=== PATIENT | female | born 1960 | race Two or more races ===

== ENCOUNTER 2016-12-10 00:08 | Emergency (ER) | payer SELFPAY ==
[2016-12-10] MEDS ORDERED: TRAMADOL HCL 50 MG TABLET PO ONE (02:03)
[2016-12-10] MEDS ORDERED: PSEUDOEPHEDRINE HCL 30 MG TABLET PO ONE (02:03)
[2016-12-10] MEDS ORDERED: AMOXICILLIN TR/POT CLAVULANATE 500-125 MG TAB PO ONE (02:03)
[2016-12-10] MEDS ORDERED: ALBUTEROL SULFATE HFA (90 MCG/PUFF) 8 GM MDI (1 MDI/ER DISP) IH PRN (02:04)
--- NOTE | 2016-12-10 02:09 | ER Document Report ---
ED General - General Chief Complaint: Ear Pain Stated Complaint: EAR PAIN Notes: Patient is a 56-year-old female presents with complaints of nasal congestion, sinus pressure, and bilateral ear pain. Daughter also mentioned she has a history of CHF. She's not had any lower extremity edema. Some subjective fevers. Patient also is very anxious and says she has panic attacks. She says the pain in her uterus is causing her panic attacks to be worse. Is taking Ativan for this. She says she took NyQuil and DayQuil at home for her sinus pressure. TRAVEL OUTSIDE OF THE [place] IN LAST 30 DAYS: No - Related Data Allergies/Adverse Reactions: No Known Allergies Allergy (Verified 01/31/16 14:17) Past Medical History - Social History Smoking Status: Unknown if Ever Smoked Frequency of alcohol use: None Drug Abuse: None Family History: Reviewed & Not Pertinent Patient has suicidal ideation: No Patient has homicidal ideation: No - Past Medical History Cardiac Medical History: Reports: Hx Congestive Heart Failure, Hx Hypertension Pulmonary Medical History: Reports: Hx Asthma Endocrine Medical History: Reports: Hx Diabetes Mellitus Type 2 Renal/ Medical History: Denies: Hx Peritoneal Dialysis Psychiatric Medical History: Reports: Hx Depression - Immunizations Hx Diphtheria, Pertussis, Tetanus Vaccination: Yes Review of Systems - Review of Systems Notes: My Normal Review Basic REVIEW OF SYSTEMS: CONSTITUTIONAL : Denies fever, chills, or sweats. Denies recent illness. EENT: Nasal congestion. Ear pain. CARDIOVASCULAR: Denies chest pain. RESPIRATORY: Denies cough, cold, or chest congestion. Denies shortness of breath, difficulty breathing, or wheezing. GASTROINTESTINAL: Denies abdominal pain. Denies nausea, vomiting, or diarrhea. Denies constipation. Last BM: MUSCULOSKELETAL: Denies neck or back pain or joint pain or swelling. SKIN: Denies rash or skin lesions. NEUROLOGICAL: Denies altered mental status or loss of consciousness. Denies headache. Denies weakness or paralysis or loss of use of either side. Denies problems with gait or speech. Denies sensory or motor loss. ALL OTHER SYSTEMS REVIEWED AND NEGATIVE. Physical Exam - Vital signs Vitals: Temp Pulse Resp BP Pulse Ox 98 F 100 17 151/71 H 99 12/10/16 00:08 12/10/16 00:08 12/10/16 00:08 12/10/16 00:08 12/10/16 00:08 - Notes Notes: General Appearance: Well nourished, alert, cooperative, no acute distress, mild to moderate obvious discomfort. Very anxious Vitals: reviewed, See vital signs table. Head: no swelling or tenderness to the head Eyes: PERRL, EOMI, Conjuctiva clear Mouth: No decreasd moisture Throat: No tonsillar inflammation, No airway obstruction, No lymphadenopathy Ears: Normal appearing tympanic membrane bilaterally. Nose: Obvious nasal congestion on exam. Neck: Supple, no neck tenderness, Lungs: No wheezing, No rales, No rhonci, No accessory muscle use, good air exchange bilaterally. Heart: Normal rate, Regular rythm, No murmur, no rub Extremities: strength 5/5 in all extremities, good pulses in all extremities, no swelling or tenderness in the extremities, no edema. Skin: warm, dry, appropriate color, no rash Neuro: speech clear, oriented x 3, normal affect, responds appropriately to questions. Course - Vital Signs Vital signs: Temp Pulse Resp BP Pulse Ox 98.9 F 108 H 16 144/75 H 97 12/10/16 02:26 12/10/16 02:26 12/10/16 02:26 12/10/16 02:26 12/10/16 02:26 - Transfer of Care Notes: 12/10/16 05:43 I suspect the pain impression the patient's ears is related to all her sinus pressure. She claims that she's had fevers. She is very panicky. This is apparently normal for her. She takes medications for panic attacks. I will give her Sudafed for congestion. We'll give her some pain medication. I will place her on antibiotics for what appears to be sinusitis. I encouraged him to return to ER if she has recurrent fevers, worsening of her symptoms, or she feels unwell. Patient and daughter agree with plan and she will be discharged home. Dictation of this chart was performed using voice recognition software; therefore, there may be some unintended grammatical errors. Discharge - Discharge Clinical Impression: Sinusitis Qualifiers: Sinusitis location: unspecified location Chronicity: acute Recurrence: non- recurrent Qualified Code(s): J01.90 - Acute sinusitis, unspecified Ear pain Qualifiers: Laterality: bilateral Qualified Code(s): H92.03 - Otalgia, bilateral Condition: Good Disposition: HOME, SELF-CARE Instructions: Oral Narcotic Medication ([facility]) Additional Instructions: Please take the medications as prescribed. The Pseudophed can sometimes raise your blood pressure. Please stop taking this medication if your blood pressure starts to become much higher than your normal. Please follow up with your doctor in 2-3 days for reevaluation. Please return to the ER immediately if you develop difficulty breathing, fevers, or feel unwell. Prescriptions: Tramadol HCl [Ultram 50 mg Tablet] 50 mg PO Q6HP PRN #14 tablet PRN Reason: Amox Tr/Potassium Clavulanate [Augmentin 875-125 Tablet] 1 tab PO BID 10 Days Pseudoephedrine HCl 30 mg PO Q8 PRN #20 tablet PRN Reason: sinus congestion
[2016-12-10 02:33] VITALS: BP 144/75
== END 2016-12-10 02:39 | disposition home or self-care (01) ==
LOC: ER 00:08
DX: H92.03 Otalgia, bilateral (principal); J01.90 Acute sinusitis, unspecified; R09.81 Nasal congestion; F41.0 Panic disorder [episodic paroxysmal anxiety]; I10 Essential (primary) hypertension; J45.909 Unspecified asthma, uncomplicated; E11.9 Type 2 diabetes mellitus without complications; Z79.899 Other long term (current) drug therapy
CPT/HCPCS: 99282; J3490

== ENCOUNTER → 2017-05-31 | Outpatient (CLI) | payer OTHER ==
[2017-05-31 08:25] LABS: ABSOLUTE EOSINOPHILS # (AUTO) 0.3 10^3/uL (0.0-0.6); ABSOLUTE MONOCYTES (AUTO) 0.4 10^3/uL (0.1-1.4); ABSOLUTE NEUT (AUTO) 3.7 10^3/uL (1.7-8.2); BASOPHILS % (AUTO) 0.6 % (0-2); EOSINOPHILS % (AUTO) 3.6 % (0-6); HEMATOCRIT 31.7 % (36.0-47.0); HEMOGLOBIN 10.8 g/dL (12.0-15.5); HGB HCT DIFFERENCE 0.7; LYMPHOCYTES % (AUTO) 40.5 % (13-45); MEAN CORPUSCULAR HEMOGLOBIN 27.4 pg (27.0-33.4); MEAN CORPUSCULAR VOLUME 81 fl (80-97); RED BLOOD COUNT 3.93 10^6/uL (3.72-5.28); RED CELL DISTRIBUTION WIDTH 14.7 % (11.5-14.0); SEGMENTED NEUTROPHILS % (AUTO) 49.3 % (42-78); WHITE BLOOD COUNT 7.5 10^3/uL (4.0-10.5)
[2017-05-31 08:48] LABS: ANION GAP 12 (5-19); ASPARTATE AMINO TRANSFERASE 16 U/L (14-36); BLOOD UREA NITROGEN 19 mg/dL (7-20); CALCIUM 9.6 mg/dL (8.4-10.2); CARBON DIOXIDE 27 mmol/L (22-30); CHLORIDE 97 mmol/L (98-107); GLUCOSE 221 mg/dL (75-110); POTASSIUM 5.1 mmol/L (3.6-5.0); SODIUM 135.7 mmol/L (137-145)
[2017-05-31 08:49] LABS: ALANINE AMINOTRANSFERASE 22 U/L (9-52); ALKALINE PHOSPHATASE 143 U/L (38-126); BILIRUBIN,DIRECT 0.4 mg/dL (0.0-0.4); BILIRUBIN,TOTAL 0.6 mg/dL (0.2-1.3); CHOLESTEROL 127.51 mg/dL (0-200); Direct HDL 35 mg/dL (>40); TOTAL PROTEIN 7.7 g/dL (6.3-8.2); TRIGLYCERIDES 361 mg/dL (<150)
[2017-05-31 08:59] LABS: DIRECT LDL 48 mg/dL (<100)
[2017-05-31 09:00] LABS: VLDL CHOLESTEROL 72.2 mg/dL (10-31)
== END ==
LOC: CCC 07:15
DX: J44.9 Chronic obstructive pulmonary disease, unspecified (principal); B18.2 Chronic viral hepatitis C; F41.9 Anxiety disorder, unspecified; I10 Essential (primary) hypertension; E11.8 Type 2 diabetes mellitus with unspecified complications
CPT/HCPCS: 36415; 80053; 80061; 83036; 84443; 85025

== ENCOUNTER → 2017-06-19 | Outpatient (CLI) | payer OTHER ==
[2017-06-19 14:00] LABS: IRON 49.8 ug/dL (37-170)
== END ==
LOC: CCC 12:55
DX: D64.9 Anemia, unspecified (principal)
CPT/HCPCS: 36415; 82728; 83540

== ENCOUNTER 2017-09-27 13:14 | Emergency (ER) | payer MEDICARE, OTHER ==
[2017-09-27] MEDS ORDERED: ACETAMINOPHEN 325 MG TABLET PO ONE (13:50)
[2017-09-27] MEDS ORDERED: DIAZEPAM 5 MG TABLET PO ONE (13:50)
--- NOTE | 2017-09-27 14:17 | RADIOLOGY REPORT (SQ) ---
EXAM DESCRIPTION: HIP LEFT AP/LATERAL COMPLETED DATE/TIME: 09/27/2017 2:07 pm REASON FOR STUDY: left hip pain COMPARISON: None. NUMBER OF VIEWS: Two views. TECHNIQUE: AP pelvis and additional frog-leg view of the left hip. LIMITATIONS: None. FINDINGS: MINERALIZATION: Normal. LEFT HIP: No fracture or dislocation. No worrisome bone lesions. No significant joint space narrowi ng. Minimal acetabular rim bony spurring. RIGHT HIP: No fracture or dislocation. No worrisome bone lesions. No significant joint space narrow ing. PUBIS AND ISCHIUM: No fracture. PELVIS: No fracture. SACRUM: Grossly intact. Mild left SI joint sclerosis LOWER LUMBAR SPINE: Lower lumbar facet arthropathy at L5-S1 SOFT TISSUES: Tiny calcification over the right greater trochanter likely mild calcific tendinopathy along the distal gluteus tendon. Atherosclerotic aortoiliac vascular calcification OTHER: No other significant finding. IMPRESSION: No acute fracture. Bilateral mild SI joint sclerosis. Lower lumbar facet arthropathy TECHNICAL DOCUMENTATION: JOB ID: [id number] [employer]- All Rights Reserved
[2017-09-27] MEDS ORDERED: IBUPROFEN 400 MG TABLET PO ONE (15:03)
[2017-09-27] MEDS ORDERED: OXYCODONE-ACETAMINOPHEN 5-325 MG TABLET PO ONE (15:03)
--- NOTE | 2017-09-27 15:38 | RADIOLOGY REPORT (SQ) ---
EXAM DESCRIPTION: CHEST PA/LAT COMPLETED DATE/TIME: 09/27/2017 3:24 pm REASON FOR STUDY: Short of breath, Hx CHF COMPARISON: 08/13/2016. EXAM PARAMETERS: NUMBER OF VIEWS: two views TECHNIQUE: Digital Frontal and Lateral radiographic views of the chest acquired. RADIATION DOSE: NA LIMITATIONS: none FINDINGS: LUNGS AND PLEURA: No opacities, masses or pneumothorax. No pleural effusion. MEDIASTINUM AND HILAR STRUCTURES: No masses or contour abnormalities. HEART AND VASCULAR STRUCTURES: Heart normal size. No evidence for failure. BONES: No acute findings. HARDWARE: None in the chest. OTHER: No other significant finding. IMPRESSION: NO SIGNIFICANT RADIOGRAPHIC FINDING IN THE CHEST. TECHNICAL DOCUMENTATION: JOB ID: [id number] [employer]- All Rights Reserved
--- NOTE | 2017-09-27 16:03 | ER Document Report ---
ED Extremity Problem, Lower - General Chief Complaint: Leg Pain Stated Complaint: LEG PAIN Time Seen by Provider: 09/27/17 13:22 Notes: Patient is complaining of pain in her left lateral proximal posterior thigh buttock that has been worsening since it began on Sunday. She recalls no unusual activity or injury or slipping or twisting or anything that would cause this to happen. She has never had a before. It is painful for her to walk and she is having to use a walker to get around. Has not had any swelling of any joints although she feels like her left buttock where the pain is located may be swollen. Has had some congestion, but not much cough. Denies any chest pains. She has felt hot, but no fever. She says she has had chills yesterday. No sweats. TRAVEL OUTSIDE OF THE [place] IN LAST 30 DAYS: No - Related Data Allergies/Adverse Reactions: No Known Allergies Allergy (Verified 01/31/16 14:17) Past Medical History - Social History Smoking Status: Former Smoker Chew tobacco use (# tins/day): No Frequency of alcohol use: None Drug Abuse: None Family History: Reviewed & Not Pertinent Patient has suicidal ideation: No Patient has homicidal ideation: No - Past Medical History Cardiac Medical History: Reports: Hx Congestive Heart Failure, Hx Hypertension Pulmonary Medical History: Reports: Hx Asthma Endocrine Medical History: Reports: Hx Diabetes Mellitus Type 1 Psychiatric Medical History: Reports: Hx Depression Past Surgical History: Reports: None - Immunizations Hx Diphtheria, Pertussis, Tetanus Vaccination: Yes Review of Systems - Review of Systems Notes: REVIEW OF SYSTEMS: CONSTITUTIONAL : Denies fever. EENT: Denies eye, ear, nose or mouth or throat pain or other symptoms. CARDIOVASCULAR: Denies chest pain. RESPIRATORY: Denies cough, chest congestion, or shortness of breath. GASTROINTESTINAL: Denies abdominal pain or nausea, vomiting, or diarrhea. GENITOURINARY: Denies difficulty or painful urinating, urinary frequency, blood in urine. MUSCULOSKELETAL: Denies back or neck pain. See HPI. SKIN: Denies rash or skin lesions. NEUROLOGICAL: Denies LOC or altered mental status. Denies headache. Denies sensory loss or motor deficits. ALL OTHER SYSTEMS REVIEWED AND NEGATIVE. Physical Exam - Vital signs Vitals: Temp Pulse Resp BP Pulse Ox 99.3 F 99 18 132/77 H 96 09/27/17 13:30 02/01/18 13:30 09/27/17 13:30 09/27/17 13:30 09/27/17 13:30 Interpretation: Normal - Notes Notes: PHYSICAL EXAMINATION: GENERAL: Well-appearing, in no acute distress. Appears to be comfortable so long as she lays still in bed, but attempting to stand up or to roll onto her left side causes severe pain. HEAD: Atraumatic, normocephalic. NECK: Normal range of motion, supple. LUNGS: Breath sounds clear and equal bilaterally. HEART: Regular rate and rhythm without murmurs. ABDOMEN: Soft, nontender. No guarding or rebound. No masses. BACK: No tenderness throughout entire back. EXTREMITIES: Patient has a tender area in the general area of the left SI joint. Hurts to press or move that area. There is no fluctuance noted. There is no erythema or heat or any symptoms that would suggest an infectious process. She does not seem to be tender over the femoral head and that aspect of her lateral buttock, but more in the region of the SI joint. NEUROLOGICAL: Normal speech, gait abnormal because of pain. Normal sensory, motor, and reflex exams. Awake, alert, and oriented x3. Cranial nerves normal. PSYCH: Normal mood, normal affect. SKIN: Warm, dry, no rashes. Course - Vital Signs Vital signs: Temp Pulse Resp BP Pulse Ox 98.9 F 89 18 128/84 H 96 09/27/17 16:29 09/27/17 16:29 09/27/17 13:30 09/27/17 16:29 09/27/17 16:29 Discharge - Discharge Clinical Impression: Left hip pain, Sacroiliitis, Arthritis Condition: Stable Disposition: HOME, SELF-CARE Additional Instructions: Arthritis /Sacroiliitis Your symptoms are due to arthritis. Arthritis is an inflammation of the joints. There are many types -- osteoarthritis (due to "wear and tear"), auto- immmune arthritis (such as rheumatoid, lupus, Radha's, and others), and crystal -induced arthritis (such as gout and pseudogout). The physician's examination, combined with laboratory tests, will determine the cause of your arthritis. All types of arthritis are treated with antiinflammatory medications. Other medication may be required for special types of arthritis, or if your problem does not respond to the antiinflammatory medicine. Local warmth may be helpful. Move the involved joints through the full range of motion daily. Mild exercise is usually still possible for most persons with arthritis (ask your physician). Swimming provides good exercise without damaging the joints. Contact the physician if you are worsening in any way. Sciatica Your symptoms suggest "sciatica." The pain of sciatica typically radiates down the leg. Numbness in the foot or calf may also occur. Sciatica is caused by irritation of the sciatic nerve or its branches. The irritation can be due to a herniated disk in the spine, swelling and inflammation in the muscles surrounding the sciatic nerve, or direct injury of the nerve itself. Most cases of sciatica will resolve with medical treatment. Bed rest is usually recommended initially. Surgery is only necessary when the condition will not improve with rest and antiinflammatory medication. Muscle relaxers are often given if muscle soreness is present. A CAT scan of the back may be performed if a herniated disk is suspected. Re-examination is necessary if you develop increasing numbness, localized weakness in the foot or ankle, or if the pain does not respond to rest. Anxiety The physician feels that some of your health problems are being caused by anxiety. Anxiety affects your health in many ways. Anxiety alone can cause palpitations, sweats, chest pains, abdominal pains, shortness of breath, and headaches. It contributes to ulcer disease, high blood pressure, irritable bowel syndrome, and has been shown to cause flare-ups of many other diseases. Anxiety is not a simple disorder to treat. If the anxiety is due to recent life stresses, you may simply need time to "work through" the changes. If the anxiety is due to an underlying unhappiness with yourself or due to psychiatric disturbance, professional help will be needed. Your physician can refer you for further help if needed. Anti-anxiety medication is occasionally given if the stress is acute or if you are having trouble sleeping. Chronic or frequent use of these medications is not a good idea because the body becomes reliant on it, preventing you from dealing with life's normal stresses. Benzodiazepines You have been given a benzodiazepine medication. Examples of this type of medicine include Valium, Xanax, Librium, Ativan, and Halcion. Benzodiazepines have many uses. Medications of this type are used for insomnia, anxiety, muscle spasms, seizures, and drug and alcohol withdrawal. You may become very drowsy when you first take the medication. You should not drive or operate machinery while under its effects. Do not combine the medication with alcohol, or with any other medication without talking to your doctor. Do not take if without specific instruction from your dormitory supervisor. Some benzodiazepines may have harmful interactions with oral antifungal medicines such as ketoconazole, itraconazole, and nefazodone. If you are taking an antifungal medicine, discuss this with your doctor before taking benzodiazepines. Ibuprofen Ibuprofen is an excellent, safe drug for pain control. In addition, it has potent antiinflammatory effects which are beneficial, especially in the treatment of injuries, arthritis, or tendonitis. It's best to take ibuprofen with food. Persons with ulcer disease or allergy to aspirin should notify their physician of this before taking ibuprofen. Take the medication exactly as prescribed. Don't take additional doses unless instructed to do so by your doctor. If you develop wheezing, shortness of breath, hives, faintness, stomach pain, vomiting, or dark black stools, return for re-evaluation at once. Take 400 mg (2 tablets) up to 3 times a day for the next 3-5 days. You can also take Tylenol along with the ibuprofen. Oral Narcotic Medication You have been given a prescription for pain control. This medication is a narcotic. It's best taken with food, as nausea can result if taken on an empty stomach. Don't operate machinery or drive within six hours of taking this medication. Do not combine this medicine with alcohol, or with any medication which can cause sedation (such as cold tablets or sleeping pills) unless you get permission from the physician. Narcotics tend to cause constipation. If possible, drink plenty of fluids and eat a diet high in fiber and fruits. FOLLOW-UP CARE: If you have been referred to a physician for follow-up care, call the physician s office for an appointment as you were instructed or within the next two days. If you experience worsening or a significant change in your symptoms, notify the physician immediately or return to the Emergency Department at any time for re-evaluation. Prescriptions: Oxycodone HCl/Acetaminophen [Percocet 5-325 mg Tablet] 1 tab PO Q6HP PRN #12 tablet PRN Reason: Diazepam [Valium 5 mg Tablet] 5 mg PO TIDP PRN #12 tablet PRN Reason:
[2017-09-27 16:33] VITALS: BP 128/84
== END 2017-09-27 16:29 | disposition home or self-care (01) ==
LOC: ER 13:14
DX: M46.1 Sacroiliitis, not elsewhere classified (principal); M19.90 Unspecified osteoarthritis, unspecified site; M25.552 Pain in left hip; M79.605 Pain in left leg; M79.652 Pain in left thigh; R09.81 Nasal congestion; R05 Cough; Z87.891 Personal history of nicotine dependence
CPT/HCPCS: 99283; 71046; 73502; A9270 ×4; J3490

== ENCOUNTER 2018-06-07 16:03 | Inpatient (IN) | payer MEDICARE, OTHER ==
--- NOTE | 2018-06-07 16:18 | ER Document Report ---
ED Medical Screen (RME) - General Chief Complaint: S/S of Possible Stroke Stated Complaint: STROKE LIKE SYMPTOMS Time Seen by Provider: 06/07/18 16:16 Mode of Arrival: Wheelchair Information source: Patient, Relative TRAVEL OUTSIDE OF THE [place] IN LAST 30 DAYS: No - HPI Patient complains to provider of: R side numbness and weakness Onset: Yesterday - pt with onset of R arm numbness starting last night. Improved temporarily but symptomes resumed today - Related Data Allergies/Adverse Reactions: No Known Allergies Allergy (Verified 01/31/16 14:17) Past Medical History - Social History Chew tobacco use (# tins/day): No Frequency of alcohol use: None Drug Abuse: None - Past Medical History Cardiac Medical History: Reports: Hx Congestive Heart Failure, Hx Hypertension Pulmonary Medical History: Reports: Hx Asthma Endocrine Medical History: Reports: Hx Diabetes Mellitus Type 1, Hx Diabetes Mellitus Type 2 Renal/ Medical History: Denies: Hx Peritoneal Dialysis Psychiatric Medical History: Reports: Hx Depression - Immunizations Hx Diphtheria, Pertussis, Tetanus Vaccination: Yes Physical Exam - Vital signs Vitals: Temp Pulse Resp BP Pulse Ox 98.9 F 98 20 143/75 H 98 06/07/18 16:10 06/07/18 16:10 06/07/18 16:10 06/07/18 16:10 06/07/18 16:10 Course - Vital Signs Vital signs: Temp Pulse Resp BP Pulse Ox 98.9 F 98 20 143/75 H 98 06/07/18 16:10 06/07/18 16:10 06/07/18 16:10 06/07/18 16:10 06/07/18 16:10
[2018-06-07 16:56] LABS: ABSOLUTE BASOPHILS # (AUTO) 0.1 10^3/uL (0.0-0.2); ABSOLUTE EOSINOPHILS # (AUTO) 0.2 10^3/uL (0.0-0.6); ABSOLUTE LYMPHOCYTES (AUTO) 1.8 10^3/uL (0.5-4.7); ABSOLUTE MONOCYTES (AUTO) 0.5 10^3/uL (0.1-1.4); ABSOLUTE NEUT (AUTO) 6.5 10^3/uL (1.7-8.2); BASOPHILS % (AUTO) 0.9 % (0-2); EOSINOPHILS % (AUTO) 2.6 % (0-6); HEMATOCRIT 28.1 % (36.0-47.0); HEMOGLOBIN 9.4 g/dL (12.0-15.5); LYMPHOCYTES % (AUTO) 19.9 % (13-45); MEAN CORPUSCULAR HEMOGLOBIN 27.9 pg (27.0-33.4); MEAN CORPUSCULAR HGB CONC 33.4 g/dL (32.0-36.0); MEAN CORPUSCULAR VOLUME 83 fl (80-97); MONOCYTES % (AUTO) 5.5 % (3-13); PLATELET COUNT 357 10^3/uL (150-450); RED BLOOD COUNT 3.36 10^6/uL (3.72-5.28); RED CELL DISTRIBUTION WIDTH 14.4 % (11.5-14.0); SEGMENTED NEUTROPHILS % (AUTO) 71.1 % (42-78); TOTAL CELLS COUNTED % (AUTO) 100 %; WHITE BLOOD COUNT 9.1 10^3/uL (4.0-10.5)
[2018-06-07 17:03] LABS: PROTHROMBIN TIME 13.7 SEC (11.4-15.4)
[2018-06-07 17:12] LABS: ALANINE AMINOTRANSFERASE 21 U/L (9-52); ALBUMIN 4.2 g/dL (3.5-5.0); ALKALINE PHOSPHATASE 71 U/L (38-126); ANION GAP 15 (5-19); ASPARTATE AMINO TRANSFERASE 31 U/L (14-36); BILIRUBIN,DIRECT 0.2 mg/dL (0.0-0.4); BILIRUBIN,TOTAL 0.5 mg/dL (0.2-1.3); BLOOD UREA NITROGEN 22 mg/dL (7-20); CALCIUM 9.9 mg/dL (8.4-10.2); CARBON DIOXIDE 23 mmol/L (22-30); CHLORIDE 102 mmol/L (98-107); CREATINE KINASE 30 U/L (30-135); GLUCOSE 88 mg/dL (75-110); POTASSIUM 4.9 mmol/L (3.6-5.0); TOTAL PROTEIN 8.4 g/dL (6.3-8.2)
--- NOTE | 2018-06-07 17:23 | RADIOLOGY REPORT (SQ) ---
EXAM DESCRIPTION: CT HEAD WITHOUT COMPLETED DATE/TIME: 06/07/2018 5:02 pm REASON FOR STUDY: numbness R arm COMPARISON: 01/31/2016. TECHNIQUE: Axial images acquired through the brain without intravenous contrast. Images reviewed wi th bone, brain and subdural windows. Additional sagittal and coronal reconstructions were generated. Images stored on PACS. All CT scanners at this facility use dose modulation, iterative reconstruction, and/or weight based d osing when appropriate to reduce radiation dose to as low as reasonably achievable (ALARA). [facility]: Dose Right [facility]: CareDose [facility]: Dose Right [facility]: Teradose 4D [facility]: Smart Ctrip RADIATION DOSE: CT Rad equipment meets quality standard of care and radiation dose reduction techniq ues were employed. CTDIvol: 53.2 mGy. DLP: 937 mGy-cm. mGy. LIMITATIONS: None. FINDINGS: VENTRICLES: Prominent. CEREBRUM: No masses. No hemorrhage. No midline shift. Old left parietal infarct. Areas of low den sity in the white matter most likely due to chronic micro-vascular ischemic change. No evidence for acute infarction. CEREBELLUM: No masses. No hemorrhage. No alteration of density. No evidence for acute infarction. EXTRAAXIAL SPACES: Mild age-related involutional change. No fluid collections. No masses. ORBITS AND GLOBE: No intra- or extraconal masses. Normal contour of globe without masses. CALVARIUM: No fracture. PARANASAL SINUSES: No fluid or mucosal thickening. SOFT TISSUES: No mass or hematoma. OTHER: No other significant finding. IMPRESSION: MILD CHRONIC CHANGES OF ATROPHY AND MICROVASCULAR ISCHEMIA. NO ACUTE PROCESS. EVIDENCE OF ACUTE STROKE: NO. TECHNICAL DOCUMENTATION: JOB ID: [id number] Quality ID # [id number]: Final reports with documentation of one or more dose reduction techniques (e.g., Au tomated exposure control, adjustment of the mA and/or kV according to patient size, use of iterative reconstruction technique) 2010 [employer]- All Rights Reserved Reading location - IP/workstation name: [email or web address]
[2018-06-07 17:25] LABS: CREATINE KINASE MB 1.86 ng/mL (<4.55); TROPONIN I 0.013 ng/mL
--- NOTE | 2018-06-07 19:09 | RADIOLOGY REPORT (SQ) ---
EXAM DESCRIPTION: MRI HEAD WITHOUT COMPLETED DATE/TIME: 06/07/2018 6:44 pm REASON FOR STUDY: right sided weakness for > 12 hours COMPARISON: 01/31/2016 TECHNIQUE: Multiplanar imaging includes non-contrasted T1, T2, FLAIR, and Diffusion with ADC map seq uences. Images stored on PACS. LIMITATIONS: None. FINDINGS: ANATOMY: No anomalies. Normal vascular flow voids. Pituitary fossa normal. CSF SPACES: Normal in size and contour. No hemorrhage. CEREBRUM: Scattered high-signal intensity lesions throughout the white matter on FLAIR imaging with d istribution suggesting chronic micro-vascular ischemic change. Old left parietal periventricular inf arct. No evidence of hemorrhage, mass or extraaxial fluid collection. POSTERIOR FOSSA: No signal alteration. No hemorrhage. No edema, masses or mass effect. Internal mavis tory canals, cerebello-pontine angles, mastoids normal. DIFFUSION: Positive for acute or sub-acute punctate lacunar infarctions are noted in the left frontal and parietal lobes in the subcortical white matter. A small focus of restricted diffusion is also n oted in the subcortical white matter of the right parietal lobe the this is not readily confirmed on the ADC map, but raises concern for possible multi vessel distribution. Overall these findings are c onsistent with probable embolic disease. ORBITS: No masses. Globes normal. PARANASAL SINUSES: No fluid levels. Mucosa normal. OTHER: No other significant finding. IMPRESSION: Positive for acute or sub-acute punctate lacunar infarctions are noted in the left front al and parietal lobes in the subcortical white matter. A small focus of restricted diffusion is also noted in the subcortical white matter of the right parietal lobe the this is not readily confirmed o n the ADC map, but raises concern for possible multi vessel distribution. Overall these findings are consistent with probable embolic disease. EVIDENCE OF ACUTE STROKE: YES. LEFT MCA. TECHNICAL DOCUMENTATION: JOB ID: [id number] 2010 [employer] All Rights Reserved Reading location - IP/workstation name: [email or web address]
[2018-06-07] MEDS ORDERED: ASPIRIN 325 MG TABLET PO ONE (19:15)
[2018-06-07] MEDS ORDERED: DOCUSATE SODIUM 100 MG CAPSULE PO PRN (20:05)
[2018-06-07] MEDS ORDERED: GLUCAGON,HUMAN RECOMB 1 MG INJ IM PRN (20:05)
[2018-06-07] MEDS ORDERED: DEXTROSE 50%-WATER 25 GM/50 ML DISP.SYRIN IV PRN ×2 (20:05)
[2018-06-07] MEDS ORDERED: DEXTROSE 40% GEL 15 GM TUBE PO PRN ×2 (20:05)
--- NOTE | 2018-06-07 20:05 | ER Document Report ---
ED General - General Chief Complaint: S/S of Possible Stroke Stated Complaint: STROKE LIKE SYMPTOMS Time Seen by Provider: 06/07/18 16:16 Mode of Arrival: Wheelchair Notes: 58-year-old female history of stroke to the emergency department after 24 hours of having weakness on the right side. Patient states that it started yesterday but did not want to come in and get seen. Noticed weakness on the right side of her face, right upper extremity and right lower extremity today. No difficulty swallowing. No headache. Patient has multiple medical problems TRAVEL OUTSIDE OF THE [place] IN LAST 30 DAYS: No - HPI Onset: Yesterday Onset/Duration: Gradual Quality of pain: No pain Severity: Mild Pain Level: 0 - Related Data Allergies/Adverse Reactions: No Known Allergies Allergy (Verified 01/31/16 14:17) Past Medical History - General Information source: Patient, Relative - Social History Smoking Status: Former Smoker Chew tobacco use (# tins/day): No Frequency of alcohol use: None Drug Abuse: None Lives with: Family Family History: Reviewed & Not Pertinent Patient has suicidal ideation: No Patient has homicidal ideation: No - Past Medical History Cardiac Medical History: Reports: Hx Congestive Heart Failure, Hx Hypertension Pulmonary Medical History: Reports: Hx Asthma Endocrine Medical History: Reports: Hx Diabetes Mellitus Type 1, Hx Diabetes Mellitus Type 2 Renal/ Medical History: Denies: Hx Peritoneal Dialysis Psychiatric Medical History: Reports: Hx Depression - Immunizations Hx Diphtheria, Pertussis, Tetanus Vaccination: Yes Review of Systems - Review of Systems Notes: Constitutional: denies: Chills, Diaphoresis, Fever, Malaise, Weakness EENT: denies: Eye discharge, Blurred vision, Tearing, Double vision, Nose congestion, Nose discharge, Throat swelling, Mouth pain Cardiovascular: denies: Palpitations, Heart racing, Orthopnea, Dyspnea, Chest pain Respiratory: denies: Cough, Hurts to breathe, Wheezing, Shortness of breath Gastrointestinal: denies: Abdominal pain, Diarrhea, Nausea, Vomiting, Black stools, bright red blood in stool Genitourinary: denies: Burning, Dysuria, Discharge, Frequency, Flank pain, Hematuria Musculoskeletal: denies: Joint pain, Joint swelling, Muscle pain, Muscle stiffness, back pain Hematologic/Lymphatic: denies: Anemia, Easy bleeding, Easy bruising, Blood clots Neurological/Psychological: Skin: No lesions, no masses, no skin breakdown, no abscesses Physical Exam - Vital signs Vitals: Temp Pulse Resp BP Pulse Ox 98.9 F 98 20 143/75 H 98 06/07/18 16:10 06/07/18 16:10 06/07/18 16:10 06/07/18 16:10 06/07/18 16:10 Interpretation: Normal - General General appearance: Appears well, Alert - HEENT Head: Normocephalic, Atraumatic Eyes: Normal Pupils: PERRL - Respiratory Respiratory status: No respiratory distress Chest status: Nontender Breath sounds: Normal Chest palpation: Normal - Cardiovascular Rhythm: Regular Heart sounds: Normal auscultation Murmur: No - Abdominal Inspection: Normal Distension: No distension Bowel sounds: Normal Tenderness: Nontender Organomegaly: No organomegaly - Back Back: Normal, Nontender - Extremities General upper extremity: Normal inspection, Nontender, Normal color, Normal ROM , Normal temperature General lower extremity: Normal inspection, Nontender, Normal color, Normal ROM , Normal temperature, Normal weight bearing. No: Ralph's sign - Neurological Orientation: AAOx4 Jovita Coma Scale Eye Opening: Spontaneous Clayton Coma Scale Verbal: Oriented Jovita Coma Scale Motor: Obeys Commands Clayton Coma Scale Total: 15 Speech: Normal Motor strength normal: LUE, LLE. No: RUE, RLE Additional motor exam normals: Pronator drift. No: Equal manager action Sensory: Normal - Psychological Associated symptoms: Normal affect, Normal mood - Skin Skin Temperature: Warm Skin Moisture: Dry Skin Color: Normal Course - Re-evaluation Re-evalutation: 06/07/18 20:06 She has symptoms consistent with a stroke but it was definitely outside the window so no thrombolytics were given. CT scan was initially negative. MRI confirms concern for stroke. Aspirin was given. Not in A. fib. Normal sinus rhythm on EKG. Slightly anemic which will need workup with some serial stools. Will consult with hospitalist at this time for admission. Will place in the [facility]. Dr. Renaldo pickard. 06/07/18 20:07 Laboratory 06/07/18 06/07/18 06/07/18 16:45 16:45 16:45 WBC 9.1 RBC 3.36 L Hgb 9.4 L Hct 28.1 L MCV 83 MCH 27.9 MCHC 33.4 RDW 14.4 H Plt Count 357 Seg Neutrophils % 71.1 Lymphocytes % 19.9 Monocytes % 5.5 Eosinophils % 2.6 Basophils % 0.9 Absolute Neutrophils 6.5 Absolute Lymphocytes 1.8 Absolute Monocytes 0.5 Absolute Eosinophils 0.2 Absolute Basophils 0.1 PT INR Sodium 140.0 Potassium 4.9 Chloride 102 Carbon Dioxide 23 Anion Gap 15 BUN 22 H Creatinine 1.06 Est GFR ( Amer) > 60 Est GFR (Non-Af Amer) 53 L Glucose 88 Calcium 9.9 Total Bilirubin 0.5 Direct Bilirubin 0.2 Neonat Total Bilirubin Not Reportable Neonat Direct Bilirubin Not Reportable Neonat Indirect Bili Not Reportable AST 31 ALT 21 Alkaline Phosphatase 71 Creatine Kinase 30 CK-MB (CK-2) 1.86 Troponin I 0.013 Total Protein 8.4 H Albumin 4.2 06/07/18 16:45 WBC RBC Hgb Hct MCV MCH MCHC RDW Plt Count Seg Neutrophils % Lymphocytes % Monocytes % Eosinophils % Basophils % Absolute Neutrophils Absolute Lymphocytes Absolute Monocytes Absolute Eosinophils Absolute Basophils PT 13.7 INR 1.00 Sodium Potassium Chloride Carbon Dioxide Anion Gap BUN Creatinine Est GFR ( Amer) Est GFR (Non-Af Amer) Glucose Calcium Total Bilirubin Direct Bilirubin Neonat Total Bilirubin Neonat Direct Bilirubin Neonat Indirect Bili AST ALT Alkaline Phosphatase Creatine Kinase CK-MB (CK-2) Troponin I Total Protein Albumin Head CT 06/07/18 00:00 IMPRESSION: MILD CHRONIC CHANGES OF ATROPHY AND MICROVASCULAR ISCHEMIA. NO ACUTE PROCESS. EVIDENCE OF ACUTE STROKE: NO. Head MRI 06/07/18 17:25 IMPRESSION: Positive for acute or sub-acute punctate lacunar infarctions are noted in the left frontal and parietal lobes in the subcortical white matter. A small focus of restricted diffusion is also noted in the subcortical white matter of the right parietal lobe the this is not readily confirmed on the ADC map, but raises concern for possible multi vessel distribution. Overall these findings are consistent with probable embolic disease. EVIDENCE OF ACUTE STROKE: YES. LEFT MCA. 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
[2018-06-07] MEDS ORDERED: DIAZEPAM 5 MG TABLET PO PRN (20:08)
[2018-06-07 21:12] LABS: CREATINE KINASE MB 1.47 ng/mL (<4.55); TROPONIN I 0.017 ng/mL
[2018-06-07] MEDS: HEPARIN SOD (PORCINE) 5,000 UNIT/ML 1 ML SYRINGE SUBCUT SCH (21:30)
--- NOTE | 2018-06-07 22:39 | EKG REPORT ---
SEVERITY:- NORMAL ECG - SINUS RHYTHM : Confirmed by: Danielle Nash MD 07-Jun-2018 22:38:29
[2018-06-08] MEDS: ATORVASTATIN CALCIUM 80 MG TABLET PO SCH ×2 (00:46→21:32)
[2018-06-08] MEDS: CARVEDILOL 6.25 MG TABLET PO SCH ×2 (00:47→10:23)
[2018-06-08 02:41] LABS: ABSOLUTE RETICS # 0.061 10^6/uL (0.028-0.122); RETICULOCYTE COUNT (AUTO) 1.98 % (0.66-2.85)
[2018-06-08 02:58] LABS: CREATINE KINASE 25 U/L (30-135); IRON(TIBC) 30.9 ug/dL (37-170)
[2018-06-08 03:12] LABS: CREATINE KINASE MB 1.07 ng/mL (<4.55); TROPONIN I 0.015 ng/mL
[2018-06-08] MEDS: HEPARIN SOD (PORCINE) 5,000 UNIT/ML 1 ML SYRINGE SUBCUT SCH (05:41)
--- NOTE | 2018-06-08 06:04 | PDOC H&P ---
History of Present Illness Admission Date/PCP: 06/07/18 20:23 Patient complains of: Right-sided weakness History of Present Illness: DUSTIN MALDONADO is a 58 year old female with a past medical history of diabetes, hypertension, CVA without residual, peripheral neuropathy, dyslipidemia, COPD, iron deficiency anemia and anxiety. Patient presents 24 hours after the onset of right-sided weakness with facial droop, right arm and leg weakness. She denies difficulty with speech or swallowing. She admits to palpitations and recent increased dose of Coreg. In the emergency room she is found to have a subacute CVA by MRI with punctate lesions in the left frontal and parietal lobes concerning for embolic disease. She is referred to the hospitalist for admission. Past Medical History Cardiac Medical History: Reports: Congestive Heart Failure, Hypertension Pulmonary Medical History: Reports: Asthma Endocrine Medical History: Reports: Diabetes Mellitus Type 1, Diabetes Mellitus Type 2 Psychiatric Medical History: Reports: Depression Hematology: Reports: Anemia Social History Information Source: Patient, Emergency Med Personnel Lives with: Family Smoking Status: Never Smoker Frequency of Alcohol Use: None Hx Recreational Drug Use: No Drugs: None Hx Prescription Drug Abuse: No - Advance Directive Resuscitation Status: Full Code Family History Family History: DM, Hyperlipidemia, Hypertension Parental Family History Reviewed: Yes Children Family History Reviewed: Yes Sibling(s) Family History Reviewed.: Yes Medication/Allergy Home Medications: Albuterol Sulfate [Proair HFA] 2 puff IH Q4HP PRN 06/07/18 Aspirin [Ecotrin 81 mg EC Tablet] 81 mg PO DAILY 06/07/18 Atorvastatin Calcium [Lipitor 40 mg Tablet] 40 mg PO QHS 06/07/18 Bupropion HCl [Bupropion Xl] 150 mg PO DAILY 06/07/18 Carvedilol [Coreg 12.5 mg Tablet] 12.5 mg PO Q12 06/07/18 Celecoxib [Celebrex 100 mg Capsule] 100 mg PO BID 06/07/18 Fenofibrate 160 mg PO DAILY 06/07/18 Glipizide [Glipizide Xl] 10 mg PO DAILY 06/07/18 Lisinopril [Prinivil 5 mg Tablet] 5 mg PO DAILY 06/07/18 Metformin HCl [Glucophage] 1,000 mg PO BID 06/07/18 Mometasone/Formoterol [Dulera 100 Mcg/5 Mcg Inhaler] 2 puff IH BID 06/07/18 Montelukast Sodium [Singulair 10 mg Tablet] 10 mg PO QHS 06/07/18 Sitagliptin Phosphate [Januvia] 100 mg PO DAILY 06/07/18 Allergies/Adverse Reactions: No Known Allergies Allergy (Verified 01/31/16 14:17) Review of Systems Constitutional: ABSENT: chills, fever(s), headache(s), weight gain, weight loss Eyes: ABSENT: visual disturbances Ears: ABSENT: hearing changes Cardiovascular: ABSENT: chest pain, dyspnea on exertion, edema, orthropnea, palpitations Respiratory: ABSENT: cough, hemoptysis Gastrointestinal: ABSENT: abdominal pain, constipation, diarrhea, hematemesis, hematochezia, nausea, vomiting Genitourinary: ABSENT: dysuria, hematuria Musculoskeletal: ABSENT: joint swelling Integumentary: ABSENT: rash, wounds Neurological: ABSENT: abnormal gait, abnormal speech, confusion, dizziness, focal weakness, syncope Psychiatric: ABSENT: anxiety, depression, homidical ideation, suicidal ideation Endocrine: ABSENT: cold intolerance, heat intolerance, polydipsia, polyuria Hematologic/Lymphatic: ABSENT: easy bleeding, easy bruising Physical Exam Vital Signs: Temp Pulse Resp BP Pulse Ox 98.4 F 102 H 20 141/58 H 100 06/08/18 03:40 06/08/18 04:00 06/08/18 04:00 06/08/18 04:00 06/08/18 04:00 Intake & Output 06/06/18 06/07/18 06/08/18 11:59 11:59 11:59 Intake Total 0 Output Total 0 Balance 0 Weight 70.8 kg General appearance: PRESENT: cooperative, mild distress, well-developed, well- nourished. ABSENT: disheveled Head exam: PRESENT: atraumatic, normocephalic Eye exam: PRESENT: conjunctiva pink, EOMI, PERRLA. ABSENT: scleral icterus Ear exam: PRESENT: normal external ear exam Mouth exam: PRESENT: moist, tongue midline Neck exam: ABSENT: carotid bruit, JVD, lymphadenopathy, thyromegaly Respiratory exam: PRESENT: clear to auscultation roderick. ABSENT: rales, rhonchi, wheezes Cardiovascular exam: PRESENT: RRR. ABSENT: diastolic murmur, rubs, systolic murmur Pulses: PRESENT: normal dorsalis pedis pul Vascular exam: PRESENT: normal capillary refill GI/Abdominal exam: PRESENT: normal bowel sounds, soft. ABSENT: distended, guarding, mass, organolmegaly, rebound, tenderness Rectal exam: PRESENT: deferred Extremities exam: PRESENT: full ROM. ABSENT: calf tenderness, clubbing, pedal edema Musculoskeletal exam: PRESENT: other - 4+ weakness right upper extremity Neurological exam: PRESENT: alert, awake, oriented to person, oriented to place , oriented to time, oriented to situation. ABSENT: CN II-XII grossly intact - Right-sided facial droop, motor sensory deficit Psychiatric exam: PRESENT: appropriate affect, normal mood. ABSENT: homicidal ideation, suicidal ideation Skin exam: PRESENT: dry, intact, warm. ABSENT: cyanosis, rash Results Laboratory Results: 06/08/18 06/08/18 02:32 02:32 Retic Count (auto) 1.98 Absolute Retic 0.061 Iron 30.9 L TIBC 419 % Saturation 7 Ferritin 100.00 Vitamin B12 422.0 Folate 15.20 06/07/18 06/07/18 06/08/18 20:25 20:25 02:32 Creatine Kinase 26 L 25 L CK-MB (CK-2) 1.47 Troponin I 0.017 06/08/18 02:32 Creatine Kinase CK-MB (CK-2) 1.07 Troponin I 0.015 Impressions: Head CT 06/07/18 00:00 IMPRESSION: MILD CHRONIC CHANGES OF ATROPHY AND MICROVASCULAR ISCHEMIA. NO ACUTE PROCESS. EVIDENCE OF ACUTE STROKE: NO. Head MRI 06/07/18 17:25 IMPRESSION: Positive for acute or sub-acute punctate lacunar infarctions are noted in the left frontal and parietal lobes in the subcortical white matter. A small focus of restricted diffusion is also noted in the subcortical white matter of the right parietal lobe the this is not readily confirmed on the ADC map, but raises concern for possible multi vessel distribution. Overall these findings are consistent with probable embolic disease. EVIDENCE OF ACUTE STROKE: YES. LEFT MCA. Assessment & Plan - Diagnosis (1) Left middle cerebral artery stroke Is this a current diagnosis for this admission?: Yes Plan: Concern for embolic source, likely paroxysmal atrial fibrillation, Lovenox, aspirin, Lipitor, echocardiogram, PT and OT (2) Palpitations Is this a current diagnosis for this admission?: Yes Plan: Likely paroxysmal atrial fibrillation, Lovenox and Coreg, follow-up echocardiogram (3) Diabetes Is this a current diagnosis for this admission?: Yes Plan: Hold metformin, evaluate A1c, Humalog sliding scale coverage (4) Hypertension Is this a current diagnosis for this admission?: Yes Plan: Permissive hypertension. - Time Time Spent: 50 to 70 Minutes - Inpatient Certification Medical Necessity: Need Close Monitoring Due to Risk of Patient Decompensation
[2018-06-08] MEDS ORDERED: ENOXAPARIN SODIUM INJ 80 MG/0.8 ML DISP.SYRIN SUBCUT ONE (06:30)
[2018-06-08] MEDS: ACETAMINOPHEN 325 MG TABLET PO PRN ×2 (08:15→15:49)
[2018-06-08] MEDS: INSULIN LISPRO 100 UNIT/ML 3 ML VIAL SUBCUT PRN ×3 (08:20→17:15)
[2018-06-08 08:50] LABS: ABSOLUTE EOSINOPHILS # (AUTO) 0.2 10^3/uL (0.0-0.6); ABSOLUTE LYMPHOCYTES (AUTO) 1.5 10^3/uL (0.5-4.7); ABSOLUTE MONOCYTES (AUTO) 0.5 10^3/uL (0.1-1.4); ABSOLUTE NEUT (AUTO) 5.1 10^3/uL (1.7-8.2); BASOPHILS % (AUTO) 0.6 % (0-2); EOSINOPHILS % (AUTO) 2.2 % (0-6); HEMATOCRIT 27.8 % (36.0-47.0); HEMOGLOBIN 9.4 g/dL (12.0-15.5); LYMPHOCYTES % (AUTO) 20.8 % (13-45); MEAN CORPUSCULAR HEMOGLOBIN 27.8 pg (27.0-33.4); MEAN CORPUSCULAR HGB CONC 33.8 g/dL (32.0-36.0); MEAN CORPUSCULAR VOLUME 82 fl (80-97); MONOCYTES % (AUTO) 6.3 % (3-13); PLATELET COUNT 334 10^3/uL (150-450); RED BLOOD COUNT 3.37 10^6/uL (3.72-5.28); RED CELL DISTRIBUTION WIDTH 14.4 % (11.5-14.0); SEGMENTED NEUTROPHILS % (AUTO) 70.1 % (42-78); TOTAL CELLS COUNTED % (AUTO) 100 %; WHITE BLOOD COUNT 7.2 10^3/uL (4.0-10.5)
--- NOTE | 2018-06-08 09:04 | RADIOLOGY REPORT (SQ) ---
EXAM DESCRIPTION: CAROTID DOPPLER COMPLETED DATE/TIME: 06/08/2018 8:39 am REASON FOR STUDY: cva COMPARISON: 02/01/2016. TECHNIQUE: Grayscale ultrasound, Doppler velocity and spectra, and color Doppler images acquired of the extra-cranial carotid and vertebral arteries. Images stored on PACS. LIMITATIONS: None. FINDINGS: RIGHT CAROTID CCA Velocities: Within normal limits. ICA Velocities Peak systolic 1.0 m/s. End diastolic 0.41 m/s. Proximal ICA/CCA peak systolic ratio 0.8. Heterogenous plaque in the carotid bulb and proximal internal carotid artery, approaching 50% stenosi s. LEFT CAROTID CCA Velocities: Within normal limits. ICA Velocities Peak systolic 0.5 m/s. End diastolic 0.11 m/s. Proximal ICA/CCA peak systolic ratio 0.5. Heterogenous plaque in the carotid bulb and proximal internal carotid artery, approaching 50% stenosi s. VERTEBRAL ARTERIES: Antegrade flow. Normal waveforms. SUBCLAVIAN ARTERIES: No finding. OTHER: No other significant finding. IMPRESSION: BILATERAL PLAQUE DESCRIBED, APPROACHING 50% STENOSIS OF THE RIGHT AND LEFT INTERNAL C AROTID ARTERIES. VELOCITIES ARE WITHIN NORMAL LIMITS. COMMENT: Quality ID #[id number]: Velocity criteria are extrapolated from the diameter data as defined by t he Society of Radiologists in Ultrasound Consensus Conference. Radiology 2003: 229; 340-346. TECHNICAL DOCUMENTATION: JOB ID: [id number] [employer]- All Rights Reserved Reading location - IP/workstation name: [email or web address]
[2018-06-08 09:25] LABS: CREATINE KINASE MB 0.83 ng/mL (<4.55); TROPONIN I 0.014 ng/mL
[2018-06-08 09:39] LABS: ANION GAP 12 (5-19); BLOOD UREA NITROGEN 19 mg/dL (7-20); CALCIUM 10.1 mg/dL (8.4-10.2); CARBON DIOXIDE 25 mmol/L (22-30); CHLORIDE 102 mmol/L (98-107); CHOLESTEROL 137.35 mg/dL (0-200); GLUCOSE 140 mg/dL (75-110); POTASSIUM 4.8 mmol/L (3.6-5.0); SODIUM 138.7 mmol/L (137-145); TRIGLYCERIDES 305 mg/dL (<150)
[2018-06-08 09:49] LABS: DIRECT LDL 46 mg/dL (<100)
[2018-06-08] MEDS ORDERED: ASPIRIN 81 MG TABLET, ENT COATED PO SCH (10:00)
[2018-06-08] MEDS: SERTRALINE HCL 50 MG TABLET PO SCH (10:23)
--- NOTE | 2018-06-08 11:00 | XCELERA REPORT ---
[address] [address] Transthoracic Echocardiogram Report Name: DUSTIN MALDONADO Age: 58 yrs Gender: Female : 1960 Patient Status: Inpatient Patient Location: [address] [place] [address] Study Date: 06/08/2018 07:10 AM Height: 61 in Weight: 156 lb BSA: 1.7 m2 Procedure: A complete two-dimensional transthoracic echocardiogram was performed (2D, M-mode, spectral and color flow Doppler). The study was technically adequate with some images being suboptimal in quality. Reason For Study: embolic cva Ordering Physician: MALACHI GAINES Performed By: Myla Castellanos Interpretation Summary No definite cardiac source of CVA/TIA noted on this particular trans-thoracic study. Consider CHIP if clinically indicated. May consider mobile cardiac telemetry monitoring (MCT) for ruling out transient AFIB. The left ventricular ejection fraction is normal. There is mild concentric left ventricular hypertrophy. The left ventricle is grossly normal size. Doppler measurements suggest pseudonormalized left ventricular relaxation, which is associated with grade II/IV or mild to moderate diastolic dysfunction Wall motion cannot be accurately commented on, but no definite regional wall motion abnormalities noted. The right ventricular systolic function is normal. The right atrium is normal in size The left atrial size is normal. There is no mitral regurgitation noted. There is no mitral valve stenosis. There is no aortic valve stenosis No aortic regurgitation is present. There is a mild amount of tricuspid regurgitation There is mild pulmonary hypertension by echo Right ventricular systolic pressure is estimated to be elevated at 30-40mmHg. The aortic root is not well visualized but is probably normal size. The inferior vena cava appeared normal and decreased > 50% with respiration (RAP 5-10 mmHg) There is no pericardial effusion. MMode/2D Measurements & Calculations RVDd: 2.6 cm LVIDd: 4.4 cm FS: 26.1 % Ao root diam: 2.5 cm IVSd: 1.1 cm LVIDs: 3.3 cm EDV(Teich): 88.4 ml Ao root area: 4.8 cm2 LVPWd: 1.1 cm ESV(Teich): 43.0 ml EF(Teich): 51.4 % Doppler Measurements & Calculations MV E max xavier: MV P1/2t max xavier: Ao V2 max: LV V1 max P.4 cm/sec 95.0 cm/sec 145.4 cm/sec 5.4 mmHg MV A max xavier: MV P1/2t: 58.8 msec Ao max P.5 mmHgLV V1 max: 119.4 cm/sec MVA(P1/2t): 3.7 cm2 116.0 cm/sec MV E/A: 0.73 MV dec slope: 473.4 cm/sec2 MV dec time: 0.24 sec PA V2 max: TR max xavier: MV P1/2t-pr_phl: 115.4 cm/sec 279.2 cm/sec 58.8 msec PA max P.3 mmHgTR max P.2 mmHg Left Ventricle The left ventricle is grossly normal size. There is mild concentric left ventricular hypertrophy. The left ventricular ejection fraction is normal. Doppler measurements suggest pseudonormalized left ventricular relaxation, which is associated with grade II/IV or mild to moderate diastolic dysfunction. Wall motion cannot be accurately commented on, but no definite regional wall motion abnormalities noted. Right Ventricle The right ventricle is grossly normal size. There is normal right ventricular wall thickness. The right ventricular systolic function is normal. Atria The right atrium is normal in size. The left atrial size is normal. Interarterial septum not well visualized and not well dopplered. Cannot comment on ASD/PFO presence. Mitral Valve The mitral valve leaflets are sclerotic, but show no functional abnormalities. There is no mitral valve stenosis. There is no mitral regurgitation noted. Aortic Valve The aortic valve is grossly normal. There is no aortic valve stenosis. No aortic regurgitation is present. Tricuspid Valve The tricuspid valve is not well visualized, but is grossly normal. There is no tricuspid stenosis. There is a mild amount of tricuspid regurgitation. There is mild pulmonary hypertension by echo. Right ventricular systolic pressure is estimated to be elevated at 30-40mmHg. Pulmonic Valve The pulmonic valve is not well visualized. Great Vessels The aortic root is not well visualized but is probably normal size. The inferior vena cava appeared normal and decreased > 50% with respiration (RAP 5-10 mmHg). Effusions There is no pericardial effusion. Incidental Findings No definite cardiac source of CVA/TIA noted on this particular trans-thoracic study. Consider CHIP if clinically indicated. May consider mobile cardiac telemetry monitoring (MCT) for ruling out transient AFIB. : MALACHI GAINES > Daphnie King
[2018-06-08] MEDS ORDERED: INSULIN GLARGINE,HUM.REC.ANLOG 1,000 UNIT/10 ML UNIT SUBCUT ONE ×2 (12:10→12:45)
--- NOTE | 2018-06-08 14:21 | PDOC PROGRESS REPORT ---
Subjective Progress Note for:: 06/08/18 Subjective:: 58-year-old female who presents with right arm weakness right leg weakness. MRI performed which showed a left lacunar infarct. Also indicated a small area in the right parietal lobe that could not be confirmed with mapping techniques. Since admission patient has had almost complete recovery of her motor strength. She reports she has brief episodes of palpitations which last seconds not minutes. She has no prior history of atrial fibrillation. The MRI would suggest embolic source echocardiogram was performed which showed normal left atrium size normal LV function mild pulmonary hypertension and grade 2 diastolic dysfunction. Carotid duplex showed no stenosis greater than 50% bilaterally. Patient was started on aspirin therapy. Cholesterol results show patient at goal with a cholesterol of 137 and LDL of 46 and an HDL of 40 triglycerides are elevated at 305 patient is on Lipitor 40 and fenofibrate at home Reason For Visit: CVA DM HTN Physical Exam Vital Signs: Temp Pulse Resp BP Pulse Ox 99.1 F 103 H 16 152/88 H 100 06/08/18 11:20 06/08/18 14:00 06/08/18 12:00 06/08/18 12:00 06/08/18 12:00 Intake & Output 06/07/18 06/08/18 06/09/18 06:59 06:59 06:59 Intake Total 0 275 Output Total 0 Balance 0 275 Weight 70.8 kg General appearance: PRESENT: no acute distress, well-developed, well-nourished Eye exam: PRESENT: conjunctiva pink, EOMI, PERRLA. ABSENT: scleral icterus Neck exam: ABSENT: carotid bruit, JVD, lymphadenopathy, thyromegaly Respiratory exam: PRESENT: clear to auscultation roderick. ABSENT: rales, rhonchi, wheezes Cardiovascular exam: PRESENT: RRR. ABSENT: diastolic murmur, rubs, systolic murmur Pulses: PRESENT: normal carotid pulses GI/Abdominal exam: PRESENT: normal bowel sounds, soft. ABSENT: distended, guarding, mass, organolmegaly, rebound, tenderness Extremities exam: PRESENT: full ROM. ABSENT: calf tenderness, clubbing, pedal edema Musculoskeletal exam: PRESENT: normal inspection Neurological exam: PRESENT: alert, awake, oriented to person, oriented to place , oriented to time, oriented to situation, CN II-XII grossly intact, motor sensory deficit - Subtle proximal right upper extremity limb girdle weakness otherwise exam appears symmetrical. Psychiatric exam: PRESENT: appropriate affect, normal mood. ABSENT: homicidal ideation, suicidal ideation Skin exam: PRESENT: dry, intact, warm. ABSENT: cyanosis, rash Results Laboratory Results: 06/08/18 08:16 06/08/18 08:16 06/08/18 06/08/18 06/08/18 02:32 02:32 08:16 WBC 7.2 RBC 3.37 L Hgb 9.4 L Hct 27.8 L MCV 82 MCH 27.8 MCHC 33.8 RDW 14.4 H Plt Count 334 Seg Neutrophils % 70.1 Lymphocytes % 20.8 Monocytes % 6.3 Eosinophils % 2.2 Basophils % 0.6 Absolute Neutrophils 5.1 Absolute Lymphocytes 1.5 Absolute Monocytes 0.5 Absolute Eosinophils 0.2 Absolute Basophils 0.0 Retic Count (auto) 1.98 Absolute Retic 0.061 Sodium Potassium Chloride Carbon Dioxide Anion Gap BUN Creatinine Est GFR ( Amer) Est GFR (Non-Af Amer) Glucose Calcium Iron 30.9 L TIBC 419 % Saturation 7 Ferritin 100.00 Triglycerides Cholesterol LDL Cholesterol Direct VLDL Cholesterol HDL Cholesterol Vitamin B12 422.0 Folate 15.20 06/08/18 08:16 WBC RBC Hgb Hct MCV MCH MCHC RDW Plt Count Seg Neutrophils % Lymphocytes % Monocytes % Eosinophils % Basophils % Absolute Neutrophils Absolute Lymphocytes Absolute Monocytes Absolute Eosinophils Absolute Basophils Retic Count (auto) Absolute Retic Sodium 138.7 Potassium 4.8 Chloride 102 Carbon Dioxide 25 Anion Gap 12 BUN 19 Creatinine 0.83 Est GFR ( Amer) > 60 Est GFR (Non-Af Amer) > 60 Glucose 140 H Calcium 10.1 Iron TIBC % Saturation Ferritin Triglycerides 305 H Cholesterol 137.35 LDL Cholesterol Direct 46 VLDL Cholesterol 61.0 H HDL Cholesterol 40 Vitamin B12 Folate 06/07/18 06/07/18 06/08/18 20:25 20:25 02:32 Creatine Kinase 26 L 25 L CK-MB (CK-2) 1.47 Troponin I 0.017 06/08/18 06/08/18 06/08/18 02:32 08:16 08:16 Creatine Kinase 27 L CK-MB (CK-2) 1.07 0.83 Troponin I 0.015 0.014 Impressions: Head CT 06/07/18 00:00 IMPRESSION: MILD CHRONIC CHANGES OF ATROPHY AND MICROVASCULAR ISCHEMIA. NO ACUTE PROCESS. EVIDENCE OF ACUTE STROKE: NO. Head MRI 06/07/18 17:25 IMPRESSION: Positive for acute or sub-acute punctate lacunar infarctions are noted in the left frontal and parietal lobes in the subcortical white matter. A small focus of restricted diffusion is also noted in the subcortical white matter of the right parietal lobe the this is not readily confirmed on the ADC map, but raises concern for possible multi vessel distribution. Overall these findings are consistent with probable embolic disease. EVIDENCE OF ACUTE STROKE: YES. LEFT MCA. Carotid Doppler Study 06/08/18 20:06 IMPRESSION: BILATERAL PLAQUE DESCRIBED, APPROACHING 50% STENOSIS OF THE RIGHT AND LEFT INTERNAL CAROTID ARTERIES. VELOCITIES ARE WITHIN NORMAL LIMITS. Assessment & Plan - Diagnosis (1) Left middle cerebral artery stroke Is this a current diagnosis for this admission?: Yes Plan: Confirmed left lacunar infarct which is consistent with patient's presentation. Right parietal infarct is questionable does raise the possibility of embolic source. Transthoracic echocardiogram could not find cardio embolic source. History is inconsistent with atrial fibrillation although she has periods of palpitations of seconds. Does not seem likely that this would be atrial fibrillation that would put her at risk for embolic stroke. At this point patient is on aspirin 325. Anticoagulation is not recommended until 4 weeks out if atrial fibrillation can be confirmed. Would not initiate p.o. warfarin based on facts present today as it appears patient has a single infarct by exam. PT OT ordered (2) Dyslipidemia Is this a current diagnosis for this admission?: Yes Plan: Resume Lipitor 40 and patient's fenofibrate. (3) Iron deficiency anemia Qualifiers: Iron deficiency anemia type: unspecified iron deficiency Qualified Code(s) : D50.9 - Iron deficiency anemia, unspecified Is this a current diagnosis for this admission?: Yes Plan: Mild with iron level of 30. Will initiate p.o. supplementation. (4) Palpitations Is this a current diagnosis for this admission?: Yes Plan: Discussing with patient she has episodes of palpitations but they last seconds not minutes. Does not seem consistent with atrial fibrillation. Patient will need to have a monitor worker in the outpatient setting to try to identify the exact cause of her palpitations. If it is atrial fibrillation then long-term anticoagulation would be indicated. (5) Diabetes Is this a current diagnosis for this admission?: Yes Plan: Hemoglobin A1c 8.5. Will increase patient's Lantus from 10-20 discontinue glipizide as patient should not be on sulfonylureas due to risk of hypoglycemia. Continue metformin and Januvia. Maintain sliding scale monitor glycemic control going forward. (6) Hypertension Is this a current diagnosis for this admission?: Yes Plan: Mild systolic hypertension which will be monitored not treated in light of patient's recent CVA. - Time Time Spent with patient: 25-34 minutes
[2018-06-08] MEDS: METFORMIN HCL 500 MG TABLET PO SCH (17:15)
[2018-06-08] MEDS ORDERED: ENOXAPARIN SODIUM INJ 80 MG/0.8 ML DISP.SYRIN SUBCUT SCH (18:00)
[2018-06-08] MEDS ORDERED: (PENDING PHARMACY ID) (Mometasone/Formoterol [Dulera 100 Mcg/5 Mcg Inhaler] 2 PUFF) IH SCH (18:00)
[2018-06-08] MEDS: CARVEDILOL 12.5 MG TABLET PO SCH (21:33)
[2018-06-08] MEDS: BUPROPION HCL 75 MG TABLET PO SCH (21:33)
[2018-06-08] MEDS ORDERED: MONTELUKAST SODIUM 10 MG TABLET PO SCH (22:00)
[2018-06-08] MEDS ORDERED: INSULIN GLARGINE,HUM.REC.ANLOG 300 UNIT/3 ML INSULN.PEN SUBCUT SCH ×2 (22:00)
[2018-06-09] MEDS ORDERED: ONDANSETRON HCL INJ/PF 4 MG/2 ML SDV ONE (04:05)
[2018-06-09] MEDS ORDERED: ONDANSETRON HCL INJ/PF 4 MG/2 ML SDV IV ONE (04:15)
[2018-06-09 06:44] LABS: ANION GAP 16 (5-19); BLOOD UREA NITROGEN 29 mg/dL (7-20); CALCIUM 10.6 mg/dL (8.4-10.2); CARBON DIOXIDE 19 mmol/L (22-30); CHLORIDE 102 mmol/L (98-107); GLUCOSE 189 mg/dL (75-110); POTASSIUM 5.1 mmol/L (3.6-5.0); SODIUM 137.2 mmol/L (137-145)
[2018-06-09] MEDS: INSULIN LISPRO 100 UNIT/ML 3 ML VIAL SUBCUT PRN (07:42)
[2018-06-09] MEDS: CARVEDILOL 12.5 MG TABLET PO SCH (08:59)
[2018-06-09] MEDS: SERTRALINE HCL 50 MG TABLET PO SCH (08:59)
[2018-06-09] MEDS: BUPROPION HCL 75 MG TABLET PO SCH (08:59)
[2018-06-09] MEDS: METFORMIN HCL 500 MG TABLET PO SCH (08:59)
[2018-06-09] MEDS ORDERED: ASPIRIN 325 MG TABLET, ENT COATED PO ONE (09:04)
[2018-06-09] MEDS ORDERED: (PENDING PHARMACY ID) (Fenofibrate [Fenofibrate] 160 MG) PO SCH (10:00)
[2018-06-09] MEDS ORDERED: (PENDING PHARMACY ID) (Bupropion Hcl [Bupropion Xl] 150 MG) PO SCH (10:00)
[2018-06-09] MEDS ORDERED: FENOFIBRATE NANOCRYSTALLIZED 145 MG TABLET PO SCH (10:00)
[2018-06-09] MEDS ORDERED: ASPIRIN 81 MG TABLET, ENT COATED PO SCH (10:00)
[2018-06-09] MEDS ORDERED: SITAGLIPTIN PHOSPHATE 50 MG TABLET PO SCH (10:00)
[2018-06-09] MEDS ORDERED: LISINOPRIL 5 MG TABLET PO SCH (10:00)
--- NOTE | 2018-06-09 10:02 | PDOC DISCHARGE SUMMARY ---
General - Admit/Disc Date/PCP Admission Date/Primary Care Provider: 06/07/18 20:23 Discharge Date: 06/09/18 - Discharge Diagnosis (1) Left middle cerebral artery stroke Is this a current diagnosis for this admission?: Yes (2) Dyslipidemia Is this a current diagnosis for this admission?: Yes Summary: Triglyceride 305, cholesterol 137, LDL 61, HDL 40. Patient on fenofibrate 145 and Lipitor 40 (3) Iron deficiency anemia Is this a current diagnosis for this admission?: Yes Summary: Iron level 30% saturation 7 patient placed on [id number] iron (4) Palpitations Is this a current diagnosis for this admission?: Yes Summary: Patient had no arrhythmia while in hospital. Her reports of palpitation lasting seconds not minutes seems inconsistent with atrial fibrillation. Given the MRI report however it is recommended patient have a extended outpatient monitor placed if atrial fibrillation is detected and long-term anticoagulation would be indicated (5) Diabetes Is this a current diagnosis for this admission?: Yes Summary: Hemoglobin A1c 8.5 (6) Hypertension Is this a current diagnosis for this admission?: Yes - Additional Information Resuscitation Status: Full Code Discharge Diet: As Tolerated Discharge Activity: Activity As Tolerated Home Medications: Albuterol Sulfate [Proair HFA] 2 puff IH Q4HP PRN 06/07/18 Atorvastatin Calcium [Lipitor 40 mg Tablet] 40 mg PO QHS 06/07/18 Bupropion HCl [Bupropion Xl] 150 mg PO DAILY 06/07/18 Carvedilol [Coreg 12.5 mg Tablet] 12.5 mg PO Q12 06/07/18 Celecoxib [Celebrex 100 mg Capsule] 100 mg PO BID 06/07/18 Fenofibrate 160 mg PO DAILY 06/07/18 Glipizide [Glipizide Xl] 10 mg PO DAILY 06/07/18 Lisinopril [Prinivil 5 mg Tablet] 5 mg PO DAILY 06/07/18 Metformin HCl [Glucophage] 1,000 mg PO BID 06/07/18 Mometasone/Formoterol [Dulera 100 Mcg/5 Mcg Inhaler] 2 puff IH BID 06/07/18 Montelukast Sodium [Singulair 10 mg Tablet] 10 mg PO QHS 06/07/18 Sitagliptin Phosphate [Januvia] 100 mg PO DAILY 06/07/18 Insulin Glargine,Hum.rec.anlog [Lantus Insulin 100 Unit/mL] 10 units SUBCON QHS 06/08/18 Acetaminophen [Tylenol 325 mg Tablet] 650 mg PO Q4HP PRN tablet 06/09/18 Aspirin [Ecotrin 81 mg EC Tablet] 325 mg PO DAILY tabec 06/09/18 Diazepam [Valium 5 mg Tablet] 2.5 mg PO TIDP PRN tablet 06/09/18 Sertraline HCl [Zoloft 50 mg Tablet] 50 mg PO DAILY tablet 06/09/18 History of Present Illness History of Present Illness: DUSTIN MALDONADO is a 58 year old female with a past medical history of diabetes, hypertension, CVA without residual, peripheral neuropathy, dyslipidemia, COPD, iron deficiency anemia and anxiety. Patient presents 24 hours after the onset of right-sided weakness with facial droop, right arm and leg weakness. She denies difficulty with speech or swallowing. She admits to palpitations and recent increased dose of Coreg. In the emergency room she is found to have a subacute CVA by MRI with punctate lesions in the left frontal and parietal lobes concerning for embolic disease. She is referred to the hospitalist for admission Hospital Course Hospital Course: Patient was admitted to telemetry bed. She was monitored throughout the hospital stay and had no rhythm other than a sinus rhythm. Report of her palpitations by patient's accounts lasting seconds not minutes seemed inconsistent with atrial fibrillation. Echocardiogram was performed which showed no wall motion abnormality and normal ejection fraction LVH with grade 2 diastolic dysfunction. Left atrium was normal size. The patient had 100% recovery of her motor weakness she had residual subtle weakness in the right shoulder however she stated that she had dislocated her shoulder a few times in the past and is always had a little weakness in that area and that she felt like she was back to her baseline. She does ambulate with a walker at home. Is not felt she required any additional physical therapy as she seemed to be at her baseline. The MRI raised the possibility of a right parietal infarct as well however this could not be confirmed confirmed with mapping technology. Because the patient has no history of atrial fibrillation and the carotid Doppler showed no significant stenosis it was felt that initiation of Coumadin was not warranted since the patient had no history of atrial fibrillation and atrial fibrillation could not be confirmed. Because of her complaint of palpitations it is recommended however that she have an extended monitor placed in the outpatient setting in an effort to capture the palpitations she is experiencing. Should they prove to be atrial fibrillation then the patient would benefit from long- term anticoagulation in addition to her aspirin 325 for antiplatelet. Physical Exam Vital Signs: Temp Pulse Resp BP Pulse Ox 98.6 F 89 12 120/49 L 99 06/09/18 07:15 06/09/18 08:00 06/09/18 08:00 06/09/18 08:00 06/09/18 08:00 Intake & Output 06/08/18 06/09/18 06/10/18 06:59 06:59 06:59 Intake Total 0 575 Output Total 0 Balance 0 575 Weight 70.8 kg 70.4 kg General appearance: PRESENT: no acute distress, well-developed, well-nourished Eye exam: PRESENT: conjunctiva pink, EOMI, PERRLA. ABSENT: scleral icterus Neck exam: ABSENT: carotid bruit, JVD, lymphadenopathy, thyromegaly Respiratory exam: PRESENT: accessory muscle use Cardiovascular exam: PRESENT: RRR. ABSENT: diastolic murmur, rubs, systolic murmur GI/Abdominal exam: PRESENT: normal bowel sounds, soft. ABSENT: distended, guarding, mass, organolmegaly, rebound, tenderness Extremities exam: PRESENT: full ROM. ABSENT: calf tenderness, clubbing, pedal edema Neurological exam: PRESENT: alert, awake, oriented to person, oriented to place , oriented to time, oriented to situation, CN II-XII grossly intact, motor sensory deficit - Subtle right shoulder girdle weakness otherwise exam symmetric Results Laboratory Results: 06/08/18 08:16 06/09/18 05:42 06/09/18 05:42 Sodium 137.2 Potassium 5.1 H Chloride 102 Carbon Dioxide 19 L Anion Gap 16 BUN 29 H Creatinine 0.97 Est GFR ( Amer) > 60 Est GFR (Non-Af Amer) 59 L Glucose 189 H Calcium 10.6 H 06/07/18 06/07/18 06/08/18 20:25 20:25 02:32 Creatine Kinase 26 L 25 L CK-MB (CK-2) 1.47 Troponin I 0.017 06/08/18 06/08/18 06/08/18 02:32 08:16 08:16 Creatine Kinase 27 L CK-MB (CK-2) 1.07 0.83 Troponin I 0.015 0.014 Impressions: Head CT 06/07/18 00:00 IMPRESSION: MILD CHRONIC CHANGES OF ATROPHY AND MICROVASCULAR ISCHEMIA. NO ACUTE PROCESS. EVIDENCE OF ACUTE STROKE: NO. Head MRI 06/07/18 17:25 IMPRESSION: Positive for acute or sub-acute punctate lacunar infarctions are noted in the left frontal and parietal lobes in the subcortical white matter. A small focus of restricted diffusion is also noted in the subcortical white matter of the right parietal lobe the this is not readily confirmed on the ADC map, but raises concern for possible multi vessel distribution. Overall these findings are consistent with probable embolic disease. EVIDENCE OF ACUTE STROKE: YES. LEFT MCA. Carotid Doppler Study 06/08/18 20:06 IMPRESSION: BILATERAL PLAQUE DESCRIBED, APPROACHING 50% STENOSIS OF THE RIGHT AND LEFT INTERNAL CAROTID ARTERIES. VELOCITIES ARE WITHIN NORMAL LIMITS. Qualifiers - * PATIENT BEING DISCHARGED WITH ANY OF THE FOLLOWING DIAGNOSIS: Stroke Stroke Pt being discharged on Anti-thrombolytic therapy?: Yes Stroke Pt being discharged on Anti-coagulation therapy?: No Reason(s) for not prescribing Anti-coagulation therapy:: Medical Contraindication - Current recommendations Stroke Pt being discharged on Statins?: Yes NC Pt being discharged on Aspirin therapy?: Yes Plan Time Spent: Greater than 30 Minutes
[2018-06-09 10:46] VITALS: BP 144/58
[2018-06-09] MEDS ORDERED: ATORVASTATIN CALCIUM 40 MG TABLET PO SCH (22:00)
== END 2018-06-09 11:20 | disposition home or self-care (01) | DRG 66 ==
LOC: ER 16:03 → EH 20:23 → 3S 22:45
PROVIDERS: ADMIT Internal Medicine; ATTEND Internal Medicine
DX: I63.512 Cerebral infarction due to unspecified occlusion or stenosis of left middle cerebral artery (principal); I11.0 Hypertensive heart disease with heart failure; I50.9 Heart failure, unspecified; R53.1 Weakness; D50.9 Iron deficiency anemia, unspecified; Z79.84 Long term (current) use of oral hypoglycemic drugs; Z79.82 Long term (current) use of aspirin; Z79.899 Other long term (current) drug therapy
CPT/HCPCS: 36415; 70450; 70551; 80048; 80053; 80061; 82550; 82553; 82607; 82728; 82746; 82962; 83036; 83540; 83550; 84484; 85025; 85045; 85610; 90686; 93005; 93010; 93306; 93880; 99285; G8978-GP; G8979-GP; J1644; J1815; J2405; J3490

== ENCOUNTER 2018-06-10 03:18 | Emergency (ER) | payer MEDICARE, OTHER ==
--- NOTE | 2018-06-10 03:43 | ER Document Report ---
ED Neuro Symptoms/Deficit - General Mode of Arrival: Ambulatory Information source: Patient Notes: 58-year-old female who presents to the emergency department today with complaints of stroke-like symptoms which she noticed on awakening today at 0300. Patient states she did not have these symptoms prior to going to sleep. Patient was seen here 3 days ago and an MRI revealed punctate lacunar infarctions for which she was admitted for. Patient was discharged yesterday after her symptoms had resolved. Patient returns again today with similar symptoms which includes right arm numbness, having to think very carefully prior to speaking, and being unable to "control" her right hand. TRAVEL OUTSIDE OF THE [place] IN LAST 30 DAYS: No <DARRYL TODD - Last Filed: 06/10/18 06:43> <RAHEEL JERONIMO - Last Filed: 06/10/18 07:22> - General Chief Complaint: S/S of Possible Stroke Stated Complaint: STROKE LIKE SYMPTOMS Time Seen by Provider: 06/10/18 03:35 - Related Data Allergies/Adverse Reactions: No Known Allergies Allergy (Verified 01/31/16 14:17) Past Medical History - General Information source: Patient - Social History Smoking Status: Never Smoker Cigarette use (# per day): No Frequency of alcohol use: None Drug Abuse: None Lives with: Family Family History: DM, Hyperlipidemia, Hypertension - Past Medical History Cardiac Medical History: Reports: Hx Congestive Heart Failure, Hx Hypertension Pulmonary Medical History: Reports: Hx Asthma Endocrine Medical History: Reports: Hx Diabetes Mellitus Type 1, Hx Diabetes Mellitus Type 2 Psychiatric Medical History: Reports: Hx Depression Surgical Hx: Negative - Immunizations Hx Diphtheria, Pertussis, Tetanus Vaccination: Yes Hx Pneumococcal Vaccination: 04/27/15 <DARRYL TODD - Last Filed: 06/10/18 06:43> Review of Systems - Review of Systems Constitutional: No symptoms reported EENT: No symptoms reported Cardiovascular: No symptoms reported Respiratory: No symptoms reported Gastrointestinal: No symptoms reported Genitourinary: No symptoms reported Female Genitourinary: No symptoms reported Musculoskeletal: No symptoms reported Skin: No symptoms reported Hematologic/Lymphatic: No symptoms reported Neurological/Psychological: See HPI, Weakness - RUE, Numbness - RUE -: Yes All other systems reviewed and negative <DARRYL TODD - Last Filed: 06/10/18 06:43> Physical Exam - Vital signs Vitals: Resp 19 06/10/18 03:29 - Notes Notes: PHYSICAL EXAM GENERAL: Alert, interacts well. No acute distress. Anxious. HEAD: Normocephalic, atraumatic. Slight right sided facial droop. EYES: Pupils equal, round, and reactive to light. Extraocular movements intact. ENT: Oral mucosa moist, tongue midline. NECK: Full range of motion. Supple. Trachea midline. LUNGS: Clear to auscultation bilaterally, no wheezes, rales, or rhonchi. No respiratory distress. HEART: Regular rate and rhythm. No murmurs, gallops, or rubs. ABDOMEN: Soft, non-tender. Non-distended. Bowel sounds present in all 4 quadrants. No guarding, rigidity, or rebound. EXTREMITIES: Moves all 4 extremities spontaneously. No edema, radial and dorsalis pedis pulses 2/4 bilaterally. No cyanosis. NEUROLOGICAL: Alert and oriented x3. Slightly slow speech, no slurring. Slight right sided weakness. See NIH stroke scale. Finger to nose test intact bilaterally. Heel-bruce test intact bilaterally. PSYCH: Anxious SKIN: Warm, dry, normal turgor. No rashes or lesions noted. <DARRYL TODD - Last Filed: 06/10/18 06:43> - Vital signs Vitals: Resp 19 06/10/18 03:29 <RAHEEL JERONIMO - Last Filed: 06/10/18 07:22> Course - Vital Signs Vital signs: Temp Pulse Resp BP Pulse Ox 14 102/89 H 100 06/10/18 03:30 06/10/18 03:30 06/10/18 03:30 - Laboratory Result Diagrams: 06/10/18 03:50 06/10/18 03:50 <DARRYL TODD - Last Filed: 06/10/18 06:43> - Re-evaluation Re-evalutation: 06/10/18 07:18 Patient is not a candidate for TPA for multiple reasons, patient just had a stroke on the 12th although all of her symptoms resolved after a day, patient also awoke with stroke symptoms so she is outside of the timeframe for TPA, I did perform a CTA of the head and the neck to look for major vessel occlusion and there was not any. I did discuss this patient's recurrent stroke symptoms with Dr. Macario our hospitalist who is concerned that the 70% supraclinoid left internal carotid artery stenosis may be something that needs surgical intervention, I then discussed this with Dr. Thornton from [facility] the neurologist on-call who stated he felt the patient may benefit from an angiogram at their facility and further workup, stated that he would discuss the patient with Dr. Sheryl Hinson and the hospitalist train operations supervisor and that the patient would be admitted to their stroke unit. Patient has been accepted for admission. 06/10/18 07:21 Patient symptoms are improving on recheck but have not completely resolved. Patient is stable for transfer at this time. Patient will be going by ground. We are awaiting transport at this time. - Vital Signs Vital signs: Temp Pulse Resp BP Pulse Ox 86 19 148/68 H 100 06/10/18 03:30 06/10/18 06:16 06/10/18 06:16 06/10/18 06:16 - Laboratory Result Diagrams: 06/10/18 03:50 06/10/18 03:50 Laboratory results interpreted by me: 06/10/18 06/10/18 06/10/18 03:50 03:50 03:50 RBC 3.33 L Hgb 9.3 L Hct 27.7 L RDW 14.5 H APTT 36.4 H Potassium 5.3 H BUN 44 H Creatinine 1.50 H Est GFR ( Amer) 43 L Est GFR (Non-Af Amer) 35 L Glucose 179 H POC Glucose Calcium 10.3 H Creatine Kinase 27 L Total Protein 8.7 H 06/10/18 06:00 RBC Hgb Hct RDW APTT Potassium BUN Creatinine Est GFR ( Amer) Est GFR (Non-Af Amer) Glucose POC Glucose 208 H Calcium Creatine Kinase Total Protein - EKG Interpretation by Me Additional EKG results interpreted by me: 06/10/18 06:31 EKG shows sinus rhythm at a rate of 83, normal axis, normal intervals, no ST segment elevations or depressions, no T wave inversions per my interpretation. <RAHEEL JERONIMO - Last Filed: 06/10/18 07:22> ED Alteplase Inc/Exc Criteria - Date/Time patient last known well: Date/Time: 06/09/2018 21:00 - Date/Time patient arrived in ED: _: 06/10/2018 3:20 - Inclusion Criteria: 1: Patient presented to ED within 3 hours of acute ischemic stroke symptom onset ? -: No 2: Did baseline CT exclude intracranial hemorrhage and/or other risk factors? -: Yes 3: Is the age of the patient 18 years of age or greater? -: Yes : If any of the above questions are answered "NO" then stop, patient is not a candidate for Alteplase, : If all of the above questions are answered "YES" then continue with Exclusion Criteria. - Exclusion Criteria: 1: Is there evidence of intracranial hemorrhage on baseline CT? -: No 2: Is there suspicion of subarachnoid hemorrhage (even if CT negative)? -: No 3: Is there a history of serious head trauma, recent previous stroke or NC within 3 months? -: Yes 4: Does the patient have a clinical presentation consistent with NC or post-NC pericarditis? -: No 5: Is there history of intracranial hemorrhage? -: No 6: On repeated measurement is Systolic BP greater than 185mmHg or Diastolic BP greater that 110 mmHg and is aggressive treatment needed to reduce blood pressure to these limits (e.g. constant infusion of an anti-hypertensive)? -: No 7: Did the patient awake with stroke symptoms? -: Yes 8: Has the patient had a lumbar puncture or an arterial puncture at a non- compressile site within 7 days? -: No 9: With in the last 14 days did the patient have surgery or major trauma? -: No 10: Is the patient or less than 2 weeks? -: No 11: Was there any active bleeding or acute trauma? -: No 12: Does the patient have intracranial neoplasm, arteriovenous malformation or aneurysm? -: No 13: Does the patient have abnormal glucose (less than 50 or greater than 400mg/ dl)? Record glucose in Comment. -: No 14: Patient has rapidly improving symptoms at the time Alteplase is to be Administered. -: No 15: Does the patient have any risks for bleeding, including but not limited to: a.: Current use of Coumadin with PT greater than 15 seconds or INR greater than 1.7. b.: Current use of Pradaxa (Dabigatran). c.: Heparin administereed within the past 48 hours and PTT elevated. d.: Platelet count less than 100,000/mm. e.: Major surgery or serious trauma within 14 days. f.: Gastrointestinal or gynecological urinary bleeding within 14 days. g.: Myocardial Infarction (NC) within 3 months. : If the answer to any of the above questions is "YES" then stop, the patient is not a candidate for Alteplase. : If the answer to all of the above questions is "NO" then the patient may be eligible for the Administration of Alteplase. : If the patient is noted to have seizure activity at onset of Stroke symptoms; Consult Neurologist for further evaluation. - The patient is: -: Included and is eligible to receive Alteplase. *Initiate bed placement at higher level of care* --: No Reviewed risks & benefits of thrombolytic therapy: I have reviewed the risks and benefits of thrombolytic therapy with the patient and/or his/her family. -: Excluded and not eligible to receive Alteplase for the above exclusions. --: Yes -: Excluded and not eligible to receive Alteplase for other reasons (specify in comments): <RAHEEL JERONIMO - Last Filed: 06/10/18 07:22> ED NIH Stroke Scale - NIH Stroke Scale When completed:: Before Alteplase *: 1. NIH scale should be completed with appropriate accompanying assessment tools. *: 2. The NIH should reflect what the patient is capable of doing and should not be coached by the clinician. 1a. Level of Consciousness: 0=Alert;keenly responsive -: 1=Drowsy -: 2=Obtunded -: 3=Coma/unresponsive or reflex to noxious stimuli. 1a. Responses: 0 1b. Orientation Questions: a. What month is it? -: b. How old are you? -: 0=Answers both questions correctly. -: 1=Answers one question correctly or patient is intubated or has orotracheal trauma. -: 2=Answers neither question correctly. 1b. Responses: 0 1c. Response to commands: a. Open and close eyes? -: b. M48 M60 Armor Crewman and release hand? -: Credit is given despite weakness. Demonstration of task is permitted. Substitute command if hands cannot be used. -: 0=Performs both tasks correctly -: 1=Performs one task correctly -: 2=Performs neither task correctly 1c. Responses: 0 2. Gaze: Establish eye contact and instruct patient to "Follow my finger" -: 0=Normal -: 1=Partial gaze palsy. Gaze is abnormal in one or both eyes, but where forced deviation or total gaze paresis is not present. -: 2=Forced deviation or total gaze paresis. 2. Responses: 0 3. Visual Moore: Sees fingers in all four quadrants. -: 0=No visual loss. -: 1=Partial hemianopsia. -: 2=Complete hemianopsia. -: 3=Bilateral hemianopsia (including Cortical blindness) 3. Responses: 0 4. Facial Movement: Instruct patient to: -: a. Show me your teeth -: b. Raise your eyebrows -: c. Close your eyes -: d. Smile -: 0=Normal symmetrical movement -: 1=Minor paralysis (flattened nasolabial fold, asymmetry on smiling). -: 2=Partial paralysis (total or near total paralysis of lower face). -: 3=Complete paralysis of upper and lower face 4. Responses: 1 5. Motor functions (left arm): Alternate sides and extend each arm with palms down (90 degrees if sitting or 45 degrees for supine). -: 0=No drift;limb holds for full 10 seconds. -: 1=Drift; limb holds but drifts down before full 10 seconds, but does not hit bed. -: 2=Some effort against gravity; limb cannot get to or maintain position. -: 3=No effort against gravity; limb falls. -: 4=No movement. -: UN=Amputation, joint fusion, explain in comments. 5. Responses (left arm): 0 5. Motor Functions (right arm): Alternate sides and extend each arm with palms down (90 degrees if sitting or 45 degrees for supine). -: 0=No drift;limb holds for full 10 seconds. -: 1=Drift; limb holds but drifts down before full 10 seconds, but does not hit bed. -: 2=Some effort against gravity; limb cannot get to or maintain position. -: 3=No effort against gravity; limb falls. -: 4=No movement. -: UN=Amputation, joint fusion, explain in comments. 5. Responses (right arm): 1 6. Motor Functions (left leg): With patient lying supine, alternate sides and extend each leg (30 degrees always while supine). -: 0=No drift, leg holds position for full 5 seconds -: 1=Drift; leg falls before full 5 seconds but does not hit bed. -: 2=Some effort against gravity, leg falls to bed but some effort against gravity. -: 3=No effort against gravity, leg falls to bed immediately. -: 4=No movement. -: UN=Amputation, joint fusion; explain in comments. 6. Responses (left leg): 0 6. Motor Functions (right leg): With patient lying supine, alternate sides and extend each leg (30 degrees always while supine). -: 0=No drift, leg holds position for full 5 seconds -: 1=Drift; leg falls before full 5 seconds but does not hit bed. -: 2=Some effort against gravity, leg falls to bed but some effort against gravity. -: 3=No effort against gravity, leg falls to bed immediately. -: 4=No movement. -: UN=Amputation, joint fusion; explain in comments. 6. Responses (right leg): 1 7. Limb Ataxia: With eyes open instruct patient to: -: a. "Touch your finger to your nose". -: b. "Touch your heel to your bruce" -: 0=Absent -: 1=Present in one limb. -: 2=Present in two limbs. -: UN=Amputation or joint fusion; explain in comments. 7. Responses: 0 8. Sensory: Test sensation using pinprick or noxious stimuli. Test as many body parts as possible. -: 0=Normal;no sensory loss -: 1=Mile to moderate sensory loss (patient feels pin prick but is less sharp on affected side). -: 2=Severe or total sensory loss. 8. Responses: 1 9. Best Language: Instruct patient to: -: a. "Describe what you see in this picture." -: b. "Name the items in this picture." -: c. "Read these sentences." -: 0=No aphasia, normal -: 1=Mild to moderate aphasia. -: 2=Severe aphasia -: 3=Mute, global aphasia, no usable speech or auditory comprehension. 9. Responses: 0 10. Articulation, Dysarthia: Instruct patient to: -: "Read these words" or "Repeat these words" -: 0=Normal -: 1=Mild to moderate; patient may slur some words but can be understood without difficulty. -: 2=Severe; patients speech so slurred as to be unintelligible in the absence of dysphasia. -: UN=Intubated or other physical barrier, explain in comments. 10. Responses: 1 11. Extinction or inattention: 0=No abnormality -: 1= Visual, tactile, auditory, spatial, or personal inattention or extinction to bilateral simulation in one or the sensory modalities. -: 2=Profound maribell-inattention or maribell-inattention to more than one modality; does not recognize own hand. 11. Responses: 0 Total Score: 5 <RAHEEL JERONIMO - Last Filed: 06/10/18 07:22> Discharge <DARRYL TODD - Last Filed: 06/10/18 06:43> - Discharge Scribe Attestation: 06/10/18 07:21 I personally performed the services described in the documentation, reviewed and edited the documentation which was dictated to the scribe in my presence, and it accurately records my words and actions. <RAHEEL JERONIMO - Last Filed: 06/10/18 07:22> - Discharge Clinical Impression: Acute CVA (cerebrovascular accident) Condition: Fair Disposition: [facility] Scribe Documentation - Scribe Written by Manolo:: Manolo Mills, 06/10/201805 acting as scribe for :: Dillon <DARRYL TODD - Last Filed: 06/10/18 06:43>
[2018-06-10 03:59] LABS: ABSOLUTE BASOPHILS # (AUTO) 0.1 10^3/uL (0.0-0.2); ABSOLUTE EOSINOPHILS # (AUTO) 0.2 10^3/uL (0.0-0.6); ABSOLUTE LYMPHOCYTES (AUTO) 1.8 10^3/uL (0.5-4.7); ABSOLUTE MONOCYTES (AUTO) 0.5 10^3/uL (0.1-1.4); ABSOLUTE NEUT (AUTO) 5.4 10^3/uL (1.7-8.2); BASOPHILS % (AUTO) 1.3 % (0-2); EOSINOPHILS % (AUTO) 2.5 % (0-6); HEMATOCRIT 27.7 % (36.0-47.0); HEMOGLOBIN 9.3 g/dL (12.0-15.5); LYMPHOCYTES % (AUTO) 22.4 % (13-45); MEAN CORPUSCULAR HGB CONC 33.7 g/dL (32.0-36.0); MEAN CORPUSCULAR VOLUME 83 fl (80-97); MONOCYTES % (AUTO) 6.9 % (3-13); PLATELET COUNT 385 10^3/uL (150-450); RED BLOOD COUNT 3.33 10^6/uL (3.72-5.28); RED CELL DISTRIBUTION WIDTH 14.5 % (11.5-14.0); SEGMENTED NEUTROPHILS % (AUTO) 66.9 % (42-78); TOTAL CELLS COUNTED % (AUTO) 100 %
[2018-06-10 04:04] LABS: INTERNATIONAL RATION (INR) 0.99; PROTHROMBIN TIME 13.6 SEC (11.4-15.4)
[2018-06-10 04:05] LABS: PARTIAL THROMBOPLASTIN TIME 36.4 SEC (23.5-35.8)
[2018-06-10 04:20] LABS: ALANINE AMINOTRANSFERASE 19 U/L (9-52); ALBUMIN 4.3 g/dL (3.5-5.0); ALKALINE PHOSPHATASE 64 U/L (38-126); ANION GAP 15 (5-19); ASPARTATE AMINO TRANSFERASE 31 U/L (14-36); BILIRUBIN,DIRECT 0.3 mg/dL (0.0-0.4); BILIRUBIN,TOTAL 0.7 mg/dL (0.2-1.3); BLOOD UREA NITROGEN 44 mg/dL (7-20); CALCIUM 10.3 mg/dL (8.4-10.2); CARBON DIOXIDE 22 mmol/L (22-30); CHLORIDE 101 mmol/L (98-107); CREATINE KINASE 27 U/L (30-135); GLUCOSE 179 mg/dL (75-110); POTASSIUM 5.3 mmol/L (3.6-5.0); SODIUM 137.7 mmol/L (137-145); TOTAL PROTEIN 8.7 g/dL (6.3-8.2)
--- NOTE | 2018-06-10 04:30 | RADIOLOGY REPORT (SQ) ---
EXAM DESCRIPTION: XR CHEST 1 VIEW COMPLETED DATE/TME: 06/10/2018 03:47 CLINICAL HISTORY: 58 years, Female, stroke COMPARISON: 09/27/2017 NUMBER OF VIEWS: One TECHNIQUE: AP view the chest LIMITATIONS: None. FINDINGS: The lungs are clear. The heart is normal in size. There is no pneumothorax or pleural effusion. There is no acute fracture IMPRESSION: No acute cardiopulmonary abnormality 2010 [employer]- All Rights Reserved
[2018-06-10 04:31] LABS: CREATINE KINASE MB 0.89 ng/mL (<4.55)
[2018-06-10 04:32] LABS: TROPONIN I < 0.012 ng/mL
--- NOTE | 2018-06-10 04:49 | RADIOLOGY REPORT (SQ) ---
CT head without contrast on 06/10/2018 at 4:08 AM CLINICAL INDICATION: Stroke TECHNIQUE: Multiple axial images are obtained throughout the head without the administration of contrast. This exam was performed according to our departmental dose-optimization program, which includes automated exposure control, adjustment of the mA and/or kV according to patient size and/or use of iterative reconstruction technique. Total DLP is 990.56 mGy*cm. COMPARISON: MRI head from 06/07/2018 FINDINGS: There is no hydrocephalus. There is an old left parietal infarct. No definite CT evidence of acute infarct is noted. There is no hemorrhage. There are no abnormal extra-axial fluid collections. There is no mass, mass effect or midline shift. No bony abnormality is noted. IMPRESSION: Old left parietal infarct with no acute intracranial abnormality noted by CT, specifically the tiny areas of acute or subacute infarcts on recent MRI are not visualized by CT.
--- NOTE | 2018-06-10 04:55 | RADIOLOGY REPORT (SQ) ---
EXAM DESCRIPTION: CT HEAD ANGIOGRAPHY WITHOUT THEN WITH IV CONTRAST, CT NECK ANGIOGRAPHY WITHOUT THEN WITH IV CONTRAST, CT HEAD WITHOUT IV CONTRAST COMPLETED DATE/TME: 06/10/2018 03:47 (accession [id number]), 06/10/2018 03:47 (accession [id number]), 06/07/2018 00:00 (accession [id number]) CLINICAL HISTORY: 58 years, Female, stroke COMPARISON: None. TECHNIQUE: Axial CT images of the head and neck were obtained without the administration of IV contrast. MPR and MIP reconstructions were performed. DLP 568 Images stored on PACS. All CT scanners at this facility use dose modulation, iterative reconstruction, and/or weight based dosing when appropriate to reduce radiation dose to as low as reasonably achievable (ALARA). [facility]: Dose Right [facility]: CareDose [facility]: Dose Right [facility]: Teradose 4D [facility]: Z Plane LIMITATIONS: None. FINDINGS: CT HEAD: There is no hemorrhage, mass, edema, hydrocephalus, or extra-axial fluid collection. 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 The paranasal sinuses and mastoid air cells are clear. There is no acute fracture. CTA NECK: Aortic arch: Standard anatomy. Mild atherosclerosis. No significant great vessel origin stenosis. Left carotid system: The common carotid artery, carotid bifurcation , and internal carotid artery have normal course. There is approximately 60% stenosis of the distal left common carotid artery. There is approximately 40% stenosis of the proximal left internal carotid artery by calcified atherosclerotic plaque by NASCET criteria Right carotid system: The common carotid artery, carotid bifurcation , and internal carotid artery have normal course. There is approximately 50% stenosis of the distal right common carotid artery by atherosclerotic plaque. There is less than 20% stenosis of the proximal right internal carotid artery by calcified atherosclerotic plaque by NASCET criteria Vertebral arteries: Codominant system. Normal course. There is mild calcified atherosclerotic plaque seen within the bilateral vertebral arteries without hemodynamic significant stenosis>] Nonvascular tissues: No mucosal contour abnormality, abnormal enhancement, or asymmetry. Normal salivary and thyroid glands. No lymphadenopathy. CTA BRAIN: Distal Internal carotid arteries: Normal course. There is approximately 40% stenosis of the right cavernous and bilateral supraclinoid portions of the internal carotid arteries. There is greater than 70% stenosis of the left supraclinoid ICA from calcified atherosclerotic plaque The petrous portions appear unremarkable. [place]: Standard configuration wihtout proximal stenosis or aneurysm. Anterior cerebral arteries: No focal stenosis or aneurysm. Middle cerebral arteries: No focal stenosis or aneurysm Posterior cerebral arteries: No focal stenosis or aneurysm. Vertebrobasilar circulation: The basilar artery, and all cerebellar branches are patent without focal stenosis or aneurysm. There is less than 20% of the intradural portion of the right vertebral artery by calcified atherosclerotic plaque. There is approximately 40% stenosis of the intradural portion of the left vertebral artery calcified atherosclerotic plaque. Veins: The major dural venous sinus, cortical and deep cerebral veins are patent. Paranasal sinuses: Clear 1. No major branch occlusion, flow limiting stenosis, or aneurysm is identified intracranially. 2. No cervical carotid or vertebral stenosis IMPRESSION: 1. No CT evidence of acute intracranial hemorrhage. 2. Greater than 70% stenosis of the supraclinoid portion of the left ICA. No aneurysm within the [place]. 3. Approximately 60% stenosis of the distal left common carotid artery. Approximately 40% stenosis of the proximal left internal carotid artery. Proximally 50% stenosis of the distal right common carotid artery. TECHNICAL DOCUMENTATION: Quality ID # [id number]: Final reports with documentation of one or more dose reduction techniques (e.g., Automated exposure control, adjustment of the mA and/or kV according to patient size, use of iterative reconstruction technique) 2010 [employer]- All Rights Reserved
--- NOTE | 2018-06-10 04:55 | RADIOLOGY REPORT (SQ) ---
EXAM DESCRIPTION: CT HEAD ANGIOGRAPHY WITHOUT THEN WITH IV CONTRAST, CT NECK ANGIOGRAPHY WITHOUT THEN WITH IV CONTRAST, CT HEAD WITHOUT IV CONTRAST COMPLETED DATE/TME: 06/10/2018 03:47 (accession [id number]), 06/10/2018 03:47 (accession [id number]), 06/07/2018 00:00 (accession [id number]) CLINICAL HISTORY: 58 years, Female, stroke COMPARISON: None. TECHNIQUE: Axial CT images of the head and neck were obtained without the administration of IV contrast. MPR and MIP reconstructions were performed. DLP 568 Images stored on PACS. All CT scanners at this facility use dose modulation, iterative reconstruction, and/or weight based dosing when appropriate to reduce radiation dose to as low as reasonably achievable (ALARA). [facility]: Dose Right [facility]: CareDose [facility]: Dose Right [facility]: Teradose 4D [facility]: [employer] LIMITATIONS: None. FINDINGS: CT HEAD: There is no hemorrhage, mass, edema, hydrocephalus, or extra-axial fluid collection. 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 The paranasal sinuses and mastoid air cells are clear. There is no acute fracture. CTA NECK: Aortic arch: Standard anatomy. Mild atherosclerosis. No significant great vessel origin stenosis. Left carotid system: The common carotid artery, carotid bifurcation , and internal carotid artery have normal course. There is approximately 60% stenosis of the distal left common carotid artery. There is approximately 40% stenosis of the proximal left internal carotid artery by calcified atherosclerotic plaque by NASCET criteria Right carotid system: The common carotid artery, carotid bifurcation , and internal carotid artery have normal course. There is approximately 50% stenosis of the distal right common carotid artery by atherosclerotic plaque. There is less than 20% stenosis of the proximal right internal carotid artery by calcified atherosclerotic plaque by NASCET criteria Vertebral arteries: Codominant system. Normal course. There is mild calcified atherosclerotic plaque seen within the bilateral vertebral arteries without hemodynamic significant stenosis>] Nonvascular tissues: No mucosal contour abnormality, abnormal enhancement, or asymmetry. Normal salivary and thyroid glands. No lymphadenopathy. CTA BRAIN: Distal Internal carotid arteries: Normal course. There is approximately 40% stenosis of the right cavernous and bilateral supraclinoid portions of the internal carotid arteries. There is greater than 70% stenosis of the left supraclinoid ICA from calcified atherosclerotic plaque The petrous portions appear unremarkable. [place]: Standard configuration wihtout proximal stenosis or aneurysm. Anterior cerebral arteries: No focal stenosis or aneurysm. Middle cerebral arteries: No focal stenosis or aneurysm Posterior cerebral arteries: No focal stenosis or aneurysm. Vertebrobasilar circulation: The basilar artery, and all cerebellar branches are patent without focal stenosis or aneurysm. There is less than 20% of the intradural portion of the right vertebral artery by calcified atherosclerotic plaque. There is approximately 40% stenosis of the intradural portion of the left vertebral artery calcified atherosclerotic plaque. Veins: The major dural venous sinus, cortical and deep cerebral veins are patent. Paranasal sinuses: Clear 1. No major branch occlusion, flow limiting stenosis, or aneurysm is identified intracranially. 2. No cervical carotid or vertebral stenosis IMPRESSION: 1. No CT evidence of acute intracranial hemorrhage. 2. Greater than 70% stenosis of the supraclinoid portion of the left ICA. No aneurysm within the [place]. 3. Approximately 60% stenosis of the distal left common carotid artery. Approximately 40% stenosis of the proximal left internal carotid artery. Proximally 50% stenosis of the distal right common carotid artery. TECHNICAL DOCUMENTATION: Quality ID # 436: Final reports with documentation of one or more dose reduction techniques (e.g., Automated exposure control, adjustment of the mA and/or kV according to patient size, use of iterative reconstruction technique) 2010 [employer]- All Rights Reserved
--- NOTE | 2018-06-10 07:52 | EKG REPORT ---
SEVERITY:- NORMAL ECG - SINUS RHYTHM : Confirmed by: Kadeem Cali MD 10-Jun-2018 07:51:35
[2018-06-10] MEDS ORDERED: GABAPENTIN 300 MG CAPSULE PO ONE (11:13)
[2018-06-10 12:31] VITALS: BP 143/68
--- NOTE | 2018-06-10 14:21 | ER Document Report ---
Doctor's Note Notes: 06/10/18 14:20 Pt seen face to face before transfer -- stable for transfer
== END 2018-06-10 12:54 | disposition short-term general hospital (02) ==
LOC: ER 03:18
DX: I63.9 Cerebral infarction, unspecified (principal); G83.21 Monoplegia of upper limb affecting right dominant side; R29.705 NIHSS score 5; D64.9 Anemia, unspecified; N17.9 Acute kidney failure, unspecified
CPT/HCPCS: 93005; 99285; 36415; 82553; 82962; 82550; 85025; 85610; 85730; 80053; 84484; 71045; 70450; 70496; 70498; 93010; A9270

== ENCOUNTER 2018-06-14 10:02 | Emergency (ER) | payer MEDICARE, OTHER ==
--- NOTE | 2018-06-14 10:20 | ER Document Report ---
ED Medical Screen (RME) - General Chief Complaint: S/S of Possible Stroke Stated Complaint: POSSIBLE STROKE Time Seen by Provider: 06/14/18 10:15 Notes: 58 years old female had previous CVAs, the last one was 2 days ago, was seen in [facility], had a angiogram done. But they could not do an angioplasty of the cerebral artery. But they noted a blood clot. Started on a Plavix and aspirin, and discharge her home. This morning when she woke up around 8:00 started having difficulty in speaking and right-sided numbness and tingling sensation. Therefore present to the ED. She took her Plavix and aspirin this morning. On examination-when she talks speech is slurred, and after speaking for a few minutes she is finally difficult to breathe. When examining the neck there were pronounced stridor noted. But as she comes down and stop speaking for a while the stridor clears outs. This gives me a suspicion of partial vocal cord paralysis. Has right-sided weakness. She is not a candidate for thrombolyzes as she had a CVA 3 days ago. And then angiography. TRAVEL OUTSIDE OF THE [place] IN LAST 30 DAYS: No - Related Data Allergies/Adverse Reactions: No Known Allergies Allergy (Verified 06/14/18 10:04) Past Medical History - Past Medical History Cardiac Medical History: Reports: Hx Congestive Heart Failure, Hx Hypertension Pulmonary Medical History: Reports: Hx Asthma Endocrine Medical History: Reports: Hx Diabetes Mellitus Type 1, Hx Diabetes Mellitus Type 2 Renal/ Medical History: Denies: Hx Peritoneal Dialysis Psychiatric Medical History: Reports: Hx Depression - Immunizations Hx Diphtheria, Pertussis, Tetanus Vaccination: Yes Physical Exam - Vital signs Vitals: Temp Pulse Resp BP Pulse Ox 97.8 F 84 18 112/52 L 100 06/14/18 10:11 06/14/18 10:11 06/14/18 10:11 06/14/18 10:11 06/14/18 10:11 Course - Vital Signs Vital signs: Temp Pulse Resp BP Pulse Ox 97.8 F 84 18 112/52 L 100 06/14/18 10:11 06/14/18 10:11 06/14/18 10:11 06/14/18 10:11 06/14/18 10:11
--- NOTE | 2018-06-14 10:45 | RADIOLOGY REPORT (SQ) ---
EXAM DESCRIPTION: CT HEAD WITHOUT COMPLETED DATE/TIME: 06/14/2018 10:30 am REASON FOR STUDY: cva COMPARISON: CT dated 06/10/2018 and 01/31/2016. MR dated 06/07/2018 and 01/31/2016. TECHNIQUE: Axial images acquired through the brain without intravenous contrast. Images reviewed wi th bone, brain and subdural windows. Additional sagittal and coronal reconstructions were generated. Images stored on PACS. All CT scanners at this facility use dose modulation, iterative reconstruction, and/or weight based d osing when appropriate to reduce radiation dose to as low as reasonably achievable (ALARA). [facility]: Dose Right [facility]: CareDose [facility]: Dose Right [facility]: Teradose 4D [facility]: [employer] RADIATION DOSE: CT Rad equipment meets quality standard of care and radiation dose reduction techniq ues were employed. CTDIvol: 53.2 mGy. DLP: 991 mGy-cm. mGy. LIMITATIONS: None. FINDINGS: VENTRICLES: Normal size and contour. CEREBRUM: No masses. No hemorrhage. No midline shift. Old infarct in the posterior left parietal l obe. No evidence for acute infarction. Normal weiss/white matter differentiation. No areas of low den sity in the white matter. CEREBELLUM: No masses. No hemorrhage. No alteration of density. No evidence for acute infarction. EXTRAAXIAL SPACES: No fluid collections. No masses. Incidental prominent empty sella, unchanged fro m prior MR. ORBITS AND GLOBE: No intra- or extraconal masses. Normal contour of globe without masses. CALVARIUM: No fracture. PARANASAL SINUSES: No fluid or mucosal thickening. SOFT TISSUES: No mass or hematoma. OTHER: No other significant finding. IMPRESSION: STABLE OLD INFARCT IN THE POSTERIOR LEFT PARIETAL LOBE. NO ACUTE FINDINGS. EVIDENCE OF ACUTE STROKE: NO. COMMENT: Pertinent positive or negative findings of the imaging study reported as a CRITICAL EXAM t o ER provider at10:38 on 06/14/2018. Category of Critical Exam: Stroke protocol. Quality ID # 436: Final reports with documentation of one or more dose reduction techniques (e.g., Au tomated exposure control, adjustment of the mA and/or kV according to patient size, use of iterative reconstruction technique) TECHNICAL DOCUMENTATION: JOB ID: [id number] [employer]- All Rights Reserved Reading location - IP/workstation name: [email or web address]
--- NOTE | 2018-06-14 10:50 | RADIOLOGY REPORT (SQ) ---
EXAM DESCRIPTION: SOFT TISSUE NECK COMPLETED DATE/TIME: 06/14/2018 10:40 am REASON FOR STUDY: stridor COMPARISON: None. NUMBER OF VIEWS: Two views. TECHNIQUE: AP and lateral radiographic image of the soft tissues of the neck. LIMITATIONS: None. FINDINGS: EPIGLOTTIS: Normal. Contour normal. Aryepiglottic folds normal. PREVERTEBRAL SOFT TISSUES: Normal. No soft tissue swelling. SUBGLOTTIC AREA: Normal. No narrowing. RETROPHARYNGEAL SPACE: Normal. No soft tissue masses. BONES: No significant findings. LUNG APICES: Normal. OTHER: No radiopaque foreign body. No other significant finding. IMPRESSION: NEGATIVE STUDY OF THE SOFT TISSUES OF THE NECK. TECHNICAL DOCUMENTATION: JOB ID: [id number] [employer]- All Rights Reserved Reading location - IP/workstation name: [email or web address]
--- NOTE | 2018-06-14 10:51 | RADIOLOGY REPORT (SQ) ---
EXAM DESCRIPTION: CHEST SINGLE VIEW COMPLETED DATE/TIME: 06/14/2018 10:40 am REASON FOR STUDY: cough COMPARISON: 08/13/2016. EXAM PARAMETERS: NUMBER OF VIEWS: One view. TECHNIQUE: Single frontal radiographic view of the chest acquired. RADIATION DOSE: NA LIMITATIONS: None. FINDINGS: LUNGS AND PLEURA: No opacities, masses or pneumothorax. No pleural effusion. MEDIASTINUM AND HILAR STRUCTURES: No masses. Contour normal. HEART AND VASCULAR STRUCTURES: Heart normal in size. Normal vasculature. BONES: No acute findings. HARDWARE: None in the chest. OTHER: No other significant finding. IMPRESSION: NO ACUTE RADIOGRAPHIC FINDING IN THE CHEST. TECHNICAL DOCUMENTATION: JOB ID: [id number] [employer]- All Rights Reserved Reading location - IP/workstation name: [email or web address]
[2018-06-14 11:08] LABS: ABSOLUTE EOSINOPHILS # (AUTO) 0.2 10^3/uL (0.0-0.6); ABSOLUTE LYMPHOCYTES (AUTO) 1.3 10^3/uL (0.5-4.7); ABSOLUTE MONOCYTES (AUTO) 0.5 10^3/uL (0.1-1.4); ABSOLUTE NEUT (AUTO) 6.9 10^3/uL (1.7-8.2); BASOPHILS % (AUTO) 0.3 % (0-2); EOSINOPHILS % (AUTO) 1.9 % (0-6); HEMATOCRIT 24.1 % (36.0-47.0); HEMOGLOBIN 8.1 g/dL (12.0-15.5); MEAN CORPUSCULAR HEMOGLOBIN 28.2 pg (27.0-33.4); MEAN CORPUSCULAR HGB CONC 33.5 g/dL (32.0-36.0); MEAN CORPUSCULAR VOLUME 84 fl (80-97); MONOCYTES % (AUTO) 5.7 % (3-13); PLATELET COUNT 301 10^3/uL (150-450); RED BLOOD COUNT 2.86 10^6/uL (3.72-5.28); RED CELL DISTRIBUTION WIDTH 14.5 % (11.5-14.0); SEGMENTED NEUTROPHILS % (AUTO) 77.1 % (42-78); TOTAL CELLS COUNTED % (AUTO) 100 %; WHITE BLOOD COUNT 8.9 10^3/uL (4.0-10.5)
[2018-06-14 11:23] LABS: ALANINE AMINOTRANSFERASE 18 U/L (9-52); ALBUMIN 3.8 g/dL (3.5-5.0); ALKALINE PHOSPHATASE 53 U/L (38-126); ANION GAP 16 (5-19); ASPARTATE AMINO TRANSFERASE 28 U/L (14-36); BILIRUBIN,DIRECT 0.4 mg/dL (0.0-0.4); BILIRUBIN,TOTAL 0.7 mg/dL (0.2-1.3); BLOOD UREA NITROGEN 63 mg/dL (7-20); CALCIUM 9.2 mg/dL (8.4-10.2); CARBON DIOXIDE 17 mmol/L (22-30); CHLORIDE 101 mmol/L (98-107); GLUCOSE 81 mg/dL (75-110); SODIUM 134.4 mmol/L (137-145); TOTAL PROTEIN 7.6 g/dL (6.3-8.2)
[2018-06-14 11:33] LABS: POTASSIUM 6.9 mmol/L (3.6-5.0)
[2018-06-14] MEDS ORDERED: CALCIUM GLUCONATE 1000 MG/10 ML INJ IV ONE ×2 (11:40→15:42)
[2018-06-14] MEDS ORDERED: INSULIN REG, HUMAN 100 UNIT/ML 3 ML VIAL (PYX) IV ONE ×2 (11:40→15:41)
[2018-06-14] MEDS ORDERED: DEXTROSE 50%-WATER 25 GM/50 ML DISP.SYRIN IV ONE ×2 (11:40→15:42)
[2018-06-14] MEDS ORDERED: NORMAL SALINE 1000 ML 1,000 ML IV ONE (11:41)
--- NOTE | 2018-06-14 11:44 | ER Document Report ---
ED Alteplase [employer]/Exc Criteria - Inclusion Criteria: 1: Patient presented to ED within 3 hours of acute ischemic stroke symptom onset ? -: No 2: Did baseline CT exclude intracranial hemorrhage and/or other risk factors? -: Yes 3: Is the age of the patient 18 years of age or greater? -: Yes : If any of the above questions are answered "NO" then stop, patient is not a candidate for Alteplase, : If all of the above questions are answered "YES" then continue with Exclusion Criteria. - Exclusion Criteria: 1: Is there evidence of intracranial hemorrhage on baseline CT? -: No 2: Is there suspicion of subarachnoid hemorrhage (even if CT negative)? -: No 3: Is there a history of serious head trauma, recent previous stroke or NV within 3 months? -: Yes 4: Does the patient have a clinical presentation consistent with NV or post-NV pericarditis? 5: Is there history of intracranial hemorrhage? 6: On repeated measurement is Systolic BP greater than 185mmHg or Diastolic BP greater that 110 mmHg and is aggressive treatment needed to reduce blood pressure to these limits (e.g. constant infusion of an anti-hypertensive)? 7: Did the patient awake with stroke symptoms? 8: Has the patient had a lumbar puncture or an arterial puncture at a non- compressile site within 7 days? 9: With in the last 14 days did the patient have surgery or major trauma? 10: Is the patient or less than 2 weeks? 11: Was there any active bleeding or acute trauma? 12: Does the patient have intracranial neoplasm, arteriovenous malformation or aneurysm? 13: Does the patient have abnormal glucose (less than 50 or greater than 400mg/ dl)? Record glucose in Comment. 14: Patient has rapidly improving symptoms at the time Alteplase is to be Administered. 15: Does the patient have any risks for bleeding, including but not limited to: a.: Current use of Coumadin with PT greater than 15 seconds or INR greater than 1.7. b.: Current use of Pradaxa (Dabigatran). c.: Heparin administereed within the past 48 hours and PTT elevated. d.: Platelet count less than 100,000/mm. e.: Major surgery or serious trauma within 14 days. f.: Gastrointestinal or gynecological urinary bleeding within 14 days. g.: Myocardial Infarction (NV) within 3 months. : If the answer to any of the above questions is "YES" then stop, the patient is not a candidate for Alteplase. : If the answer to all of the above questions is "NO" then the patient may be eligible for the Administration of Alteplase. : If the patient is noted to have seizure activity at onset of Stroke symptoms; Consult Neurologist for further evaluation. - The patient is: -: Included and is eligible to receive Alteplase. *Initiate bed placement at higher level of care* Reviewed risks & benefits of thrombolytic therapy: I have reviewed the risks and benefits of thrombolytic therapy with the patient and/or his/her family. -: Excluded and not eligible to receive Alteplase for the above exclusions. -: Excluded and not eligible to receive Alteplase for other reasons (specify in comments): - Diagnosis of TIA: -: Patient presented with transient symptoms that are now resolved and no other neurologic findings are currently present. List symptoms in comments. -: Patient is NOT a candidate for tPA. -: ____(put name in comment) has been consulted for admission and continued evaluation of risk factor assessment.
--- NOTE | 2018-06-14 12:23 | ER Document Report ---
ED Neuro Symptoms/Deficit - General Chief Complaint: S/S of Possible Stroke Stated Complaint: POSSIBLE STROKE Time Seen by Provider: 06/14/18 10:15 TRAVEL OUTSIDE OF THE [place] IN LAST 30 DAYS: No - HPI Patient complains to provider of: Other - arm tingling-this is a 58-year-old female that presents for evaluation of recurrent right upper extremity numbness and tingling as well as weakness with slurred speech. She woke up from sleep with the symptoms this morning. Her daughter who is with her notes that this is the third stroke like event that she has had in the last 7 days the most previous subsequently for which she was transferred to [facility] and subsequently underwent angiography of the cerebral vasculature with identified narrowing of her carotid arteries however they deferred surgical intervention and proceeded with medical optimization with Lipitor as well as Plavix. She had been doing okay when discharged from the hospital yesterday however because of her return of symptoms presented today. - Related Data Allergies/Adverse Reactions: No Known Allergies Allergy (Verified 06/14/18 10:04) Past Medical History - General Information source: Patient, Relative - Social History Smoking Status: Never Smoker Family History: DM, Hyperlipidemia, Hypertension Patient has suicidal ideation: No Patient has homicidal ideation: No - Past Medical History Cardiac Medical History: Reports: Hx Congestive Heart Failure, Hx Hypertension Pulmonary Medical History: Reports: Hx Asthma Endocrine Medical History: Reports: Hx Diabetes Mellitus Type 1, Hx Diabetes Mellitus Type 2 Renal/ Medical History: Denies: Hx Peritoneal Dialysis Psychiatric Medical History: Reports: Hx Depression Past Surgical History: Reports: Hx Vascular Surgery - Angio - Immunizations Hx Diphtheria, Pertussis, Tetanus Vaccination: Yes Hx Pneumococcal Vaccination: 04/27/15 Review of Systems - Review of Systems -: Yes All other systems reviewed and negative Physical Exam - Vital signs Vitals: Temp Pulse Resp BP Pulse Ox 97.8 F 84 18 112/52 L 100 06/14/18 10:11 06/14/18 10:11 06/14/18 10:11 06/14/18 10:11 06/14/18 10:11 - General General appearance: Appears well In distress: None - HEENT Head: Normocephalic Eyes: Normal Conjunctiva: Normal Cornea: Normal Extraocular movements intact: Yes Eyelashes: Normal Pupils: PERRL - Respiratory Respiratory status: No respiratory distress Chest status: Nontender Breath sounds: Normal Chest palpation: Normal - Cardiovascular Rhythm: Regular Heart sounds: Normal auscultation Murmur: No - Abdominal Inspection: Normal Distension: No distension Tenderness: Nontender - Back Back: Normal - Extremities General upper extremity: Normal inspection, Nontender, Normal ROM, Normal strength General lower extremity: Normal inspection, Nontender, Normal ROM, Normal strength - Neurological Neuro grossly intact: Yes Cognition: Normal Orientation: AAOx4 Irving Coma Scale Eye Opening: Spontaneous Irving Coma Scale Verbal: Oriented Jovita Coma Scale Motor: Obeys Commands Jovita Coma Scale Total: 15 Speech: Normal Cranial nerves: Normal Cerebellar coordination: Normal Motor strength normal: LUE, RUE, LLE, RLE - Psychological Associated symptoms: Normal affect Course - Re-evaluation Re-evalutation: 06/14/18 11:47 4-year-old female with recurrent symptoms suggestive of a possible stroke presents with similar symptoms as her previous 2 presentations. She was identified on MRI is having a confirmed ischemic event previously as such she is not a candidate for lytic therapy at this time also her stroke scale is 1 for modest dysarthria. Patient appears hemodynamically stable at this time, had labs ordered through triage as well as a CT of the head. Will obtain an EKG as well. CT of the head is negative for new event. EKG does not demonstrate any obvious T wave abnormality arrhythmia or otherwise. Labs are notable for this patient having new onset renal failure. She is got also worsening of her baseline anemia, she is taking iron supplements at this time as such her stool is heme positive though it is unclear whether or not she is suffering from a GI bleed that she did initiate treatment with Plavix. Will add on coags for this patient, have treated her elevated potassium of 6.9 utilizing insulin as well as glucose. Will obtain MRI for investigation of potential new ischemic event. Will plan for repeat of patient's chemistry as well. 1 Patient's repeat chemistry demonstrates a markedly elevated potassium still at 6.6 despite administration of insulin, have contacted [facility] as on-call cut tobacco bulker for [facility] Dr. Khan has taken ill and will be unavailable for some time according to his staff. Hospitalist Dr. Brito from [facility] agrees to accept this patient to the stroke service for her acute renal failure, have re-dose for her calcium gluconate to grams as well as administered a repeat dose of insulin with glucose. The patient however remains relatively well-appearing in the room, she is able to tolerate p.o. I am uncertain as to the underlying cause of her acute renal failure though a broad differential does exist potentially her initiation of antihypertensive medications, post angiography nephropathy related to the contrast dye thereof. She could potentially have renal failure as a result of an embolic event as well. Also noteworthy is that this patient received a new prescription of Plavix and her hemoglobin and hematocrit is down trended. She is Hemoccult positive. She is at 8.1 currently, given that her symptoms and her MRI do not demonstrate a new infarct do not believe she requires immediate transfusion. In conversation with Dr. Brito however we agree that this patient would benefit from a more expeditious transport time as opposed to boarding in our emergency department as we lack access to nephrology particularly dialysis at this time if this patient were to have worsening hyperkalemia or arrhythmia. [facility] has accepted this patient in transfer. We will plan for this patient undergo transfer, at the time of signout she was hemodynamically stable and signed out to Dr. Collins pending transfer with Emtala filled out. - Vital Signs Vital signs: Temp Pulse Resp BP Pulse Ox 97.8 F 84 18 112/52 L 100 06/14/18 10:11 06/14/18 10:11 06/14/18 10:11 06/14/18 10:11 06/14/18 10:11 - Laboratory Result Diagrams: 06/14/18 10:45 06/14/18 14:21 Laboratory results interpreted by me: 06/14/18 06/14/18 10:45 10:45 RBC 2.86 L Hgb 8.1 L Hct 24.1 L RDW 14.5 H Sodium 134.4 L Potassium 6.9 H* Carbon Dioxide 17 L BUN 63 H Creatinine 5.03 H Est GFR ( Amer) 11 L Est GFR (Non-Af Amer) 9 L Critical Care Note - Critical Care Note Total time excluding time spent on procedures (mins): 60 ED Alteplase Inc/Exc Criteria - Inclusion Criteria: 1: Patient presented to ED within 3 hours of acute ischemic stroke symptom onset ? -: No 2: Did baseline CT exclude intracranial hemorrhage and/or other risk factors? -: Yes 3: Is the age of the patient 18 years of age or greater? -: Yes : If any of the above questions are answered "NO" then stop, patient is not a candidate for Alteplase, : If all of the above questions are answered "YES" then continue with Exclusion Criteria. - Exclusion Criteria: 1: Is there evidence of intracranial hemorrhage on baseline CT? 2: Is there suspicion of subarachnoid hemorrhage (even if CT negative)? 3: Is there a history of serious head trauma, recent previous stroke or GA within 3 months? 4: Does the patient have a clinical presentation consistent with GA or post-GA pericarditis? 5: Is there history of intracranial hemorrhage? 6: On repeated measurement is Systolic BP greater than 185mmHg or Diastolic BP greater that 110 mmHg and is aggressive treatment needed to reduce blood pressure to these limits (e.g. constant infusion of an anti-hypertensive)? 7: Did the patient awake with stroke symptoms? 8: Has the patient had a lumbar puncture or an arterial puncture at a non- compressile site within 7 days? 9: With in the last 14 days did the patient have surgery or major trauma? 10: Is the patient or less than 2 weeks? 11: Was there any active bleeding or acute trauma? 12: Does the patient have intracranial neoplasm, arteriovenous malformation or aneurysm? 13: Does the patient have abnormal glucose (less than 50 or greater than 400mg/ dl)? Record glucose in Comment. 14: Patient has rapidly improving symptoms at the time Alteplase is to be Administered. 15: Does the patient have any risks for bleeding, including but not limited to: a.: Current use of Coumadin with PT greater than 15 seconds or INR greater than 1.7. b.: Current use of Pradaxa (Dabigatran). c.: Heparin administereed within the past 48 hours and PTT elevated. d.: Platelet count less than 100,000/mm. e.: Major surgery or serious trauma within 14 days. f.: Gastrointestinal or gynecological urinary bleeding within 14 days. g.: Myocardial Infarction (GA) within 3 months. : If the answer to any of the above questions is "YES" then stop, the patient is not a candidate for Alteplase. : If the answer to all of the above questions is "NO" then the patient may be eligible for the Administration of Alteplase. : If the patient is noted to have seizure activity at onset of Stroke symptoms; Consult Neurologist for further evaluation. - The patient is: -: Included and is eligible to receive Alteplase. *Initiate bed placement at higher level of care* Reviewed risks & benefits of thrombolytic therapy: I have reviewed the risks and benefits of thrombolytic therapy with the patient and/or his/her family. -: Excluded and not eligible to receive Alteplase for the above exclusions. -: Excluded and not eligible to receive Alteplase for other reasons (specify in comments): - Diagnosis of TIA: -: Patient presented with transient symptoms that are now resolved and no other neurologic findings are currently present. List symptoms in comments. -: Patient is NOT a candidate for tPA. -: ____(put name in comment) has been consulted for admission and continued evaluation of risk factor assessment. ED NIH Stroke Scale - NIH Stroke Scale When completed:: Before Alteplase *: 1. NIH scale should be completed with appropriate accompanying assessment tools. *: 2. The NIH should reflect what the patient is capable of doing and should not be coached by the clinician. 1a. Level of Consciousness: 0=Alert;keenly responsive -: 1=Drowsy -: 2=Obtunded -: 3=Coma/unresponsive or reflex to noxious stimuli. 1a. Responses: 0 1b. Orientation Questions: a. What month is it? -: b. How old are you? -: 0=Answers both questions correctly. -: 1=Answers one question correctly or patient is intubated or has orotracheal trauma. -: 2=Answers neither question correctly. 1b. Responses: 0 1c. Response to commands: a. Open and close eyes? -: b. Aircraft Load Controller and release hand? -: Credit is given despite weakness. Demonstration of task is permitted. Substitute command if hands cannot be used. -: 0=Performs both tasks correctly -: 1=Performs one task correctly -: 2=Performs neither task correctly 1c. Responses: 0 2. Gaze: Establish eye contact and instruct patient to "Follow my finger" -: 0=Normal -: 1=Partial gaze palsy. Gaze is abnormal in one or both eyes, but where forced deviation or total gaze paresis is not present. -: 2=Forced deviation or total gaze paresis. 2. Responses: 0 3. Visual Moore: Sees fingers in all four quadrants. -: 0=No visual loss. -: 1=Partial hemianopsia. -: 2=Complete hemianopsia. -: 3=Bilateral hemianopsia (including Cortical blindness) 3. Responses: 0 4. Facial Movement: Instruct patient to: -: a. Show me your teeth -: b. Raise your eyebrows -: c. Close your eyes -: d. Smile -: 0=Normal symmetrical movement -: 1=Minor paralysis (flattened nasolabial fold, asymmetry on smiling). -: 2=Partial paralysis (total or near total paralysis of lower face). -: 3=Complete paralysis of upper and lower face 4. Responses: 0 5. Motor functions (left arm): Alternate sides and extend each arm with palms down (90 degrees if sitting or 45 degrees for supine). -: 0=No drift;limb holds for full 10 seconds. -: 1=Drift; limb holds but drifts down before full 10 seconds, but does not hit bed. -: 2=Some effort against gravity; limb cannot get to or maintain position. -: 3=No effort against gravity; limb falls. -: 4=No movement. -: UN=Amputation, joint fusion, explain in comments. 5. Responses (left arm): 0 5. Motor Functions (right arm): Alternate sides and extend each arm with palms down (90 degrees if sitting or 45 degrees for supine). -: 0=No drift;limb holds for full 10 seconds. -: 1=Drift; limb holds but drifts down before full 10 seconds, but does not hit bed. -: 2=Some effort against gravity; limb cannot get to or maintain position. -: 3=No effort against gravity; limb falls. -: 4=No movement. -: UN=Amputation, joint fusion, explain in comments. 5. Responses (right arm): 0 6. Motor Functions (left leg): With patient lying supine, alternate sides and extend each leg (30 degrees always while supine). -: 0=No drift, leg holds position for full 5 seconds -: 1=Drift; leg falls before full 5 seconds but does not hit bed. -: 2=Some effort against gravity, leg falls to bed but some effort against gravity. -: 3=No effort against gravity, leg falls to bed immediately. -: 4=No movement. -: UN=Amputation, joint fusion; explain in comments. 6. Responses (left leg): 0 6. Motor Functions (right leg): With patient lying supine, alternate sides and extend each leg (30 degrees always while supine). -: 0=No drift, leg holds position for full 5 seconds -: 1=Drift; leg falls before full 5 seconds but does not hit bed. -: 2=Some effort against gravity, leg falls to bed but some effort against gravity. -: 3=No effort against gravity, leg falls to bed immediately. -: 4=No movement. -: UN=Amputation, joint fusion; explain in comments. 6. Responses (right leg): 0 7. Limb Ataxia: With eyes open instruct patient to: -: a. "Touch your finger to your nose". -: b. "Touch your heel to your bruce" -: 0=Absent -: 1=Present in one limb. -: 2=Present in two limbs. -: UN=Amputation or joint fusion; explain in comments. 7. Responses: 0 8. Sensory: Test sensation using pinprick or noxious stimuli. Test as many body parts as possible. -: 0=Normal;no sensory loss -: 1=Mile to moderate sensory loss (patient feels pin prick but is less sharp on affected side). -: 2=Severe or total sensory loss. 8. Responses: 0 9. Best Language: Instruct patient to: -: a. "Describe what you see in this picture." -: b. "Name the items in this picture." -: c. "Read these sentences." -: 0=No aphasia, normal -: 1=Mild to moderate aphasia. -: 2=Severe aphasia -: 3=Mute, global aphasia, no usable speech or auditory comprehension. 9. Responses: 0 10. Articulation, Dysarthia: Instruct patient to: -: "Read these words" or "Repeat these words" -: 0=Normal -: 1=Mild to moderate; patient may slur some words but can be understood without difficulty. -: 2=Severe; patients speech so slurred as to be unintelligible in the absence of dysphasia. -: UN=Intubated or other physical barrier, explain in comments. 10. Responses: 1 11. Extinction or inattention: 0=No abnormality -: 1= Visual, tactile, auditory, spatial, or personal inattention or extinction to bilateral simulation in one or the sensory modalities. -: 2=Profound maribell-inattention or maribell-inattention to more than one modality; does not recognize own hand. 11. Responses: 0 Total Score: 1 Discharge - Discharge Clinical Impression: Paresthesias in right hand, Hyperkalemia TIA (transient ischemic attack) Qualifiers: Transient cerebral ischemia type: other Qualified Code(s): G45.8 - Other transient cerebral ischemic attacks and related syndromes Renal failure Qualifiers: Renal failure chronicity: acute Acute renal failure type: unspecified Qualified Code(s): N17.9 - Acute kidney failure, unspecified GI bleed Qualifiers: GI bleed type/associated pathology: unspecified gastrointestinal hemorrhage type Qualified Code(s): K92.2 - Gastrointestinal hemorrhage, unspecified Condition: Stable Disposition: COUNTS INCLUDE 234 BEDS AT THE [facility]
--- NOTE | 2018-06-14 13:18 | EKG REPORT ---
SEVERITY:- NORMAL ECG - SINUS RHYTHM : Confirmed by: Kadeem Cali MD 14-Jun-2018 13:18:18
[2018-06-14 13:41] LABS: INTERNATIONAL RATION (INR) 1.03; PROTHROMBIN TIME 14.1 SEC (11.4-15.4)
--- NOTE | 2018-06-14 14:46 | RADIOLOGY REPORT (SQ) ---
EXAM DESCRIPTION: MRI HEAD WITHOUT COMPLETED DATE/TIME: 06/14/2018 2:09 pm REASON FOR STUDY: new cva COMPARISON: 06/07/2018 TECHNIQUE: Multiplanar imaging includes non-contrasted T1, T2, FLAIR, and diffusion with ADC map seq uences. Images stored on PACS. LIMITATIONS: None. FINDINGS: Since the prior, there has been no significant change in the distribution of acute watersh ed infarcts in the left MCA and right MCA distributions. There is a new area of restricted diffusion measuring about 1 cm in the right cerebellum. No hemorrhage. No mass effect. No extra-axial fluid collection. IMPRESSION: Known recent infarcts bilateral MCA distribution. New acute nonhemorrhagic infarct righ t cerebellum. Findings suggest embolic disease. EVIDENCE OF ACUTE STROKE: YES. RIGHT VERTEBROBASILAR TECHNICAL DOCUMENTATION: JOB ID: [id number]- All Rights Reserved Reading location - IP/workstation name: [email or web address]
[2018-06-14 15:06] LABS: ANION GAP 12 (5-19); BLOOD UREA NITROGEN 59 mg/dL (7-20); CALCIUM 8.6 mg/dL (8.4-10.2); CARBON DIOXIDE 18 mmol/L (22-30); CHLORIDE 102 mmol/L (98-107); GLUCOSE 96 mg/dL (75-110); SODIUM 132.3 mmol/L (137-145)
[2018-06-14 15:18] LABS: POTASSIUM 6.6 mmol/L (3.6-5.0)
[2018-06-14] MEDS ORDERED: SODIUM POLYSTYRENE SULFONATE 15 GM/60 ML NG ONE (15:42)
[2018-06-14 18:45] LABS: ANION GAP 15 (5-19); BLOOD UREA NITROGEN 63 mg/dL (7-20); CALCIUM 9.3 mg/dL (8.4-10.2); CARBON DIOXIDE 18 mmol/L (22-30); CHLORIDE 103 mmol/L (98-107); GLUCOSE 86 mg/dL (75-110); POTASSIUM 5.9 mmol/L (3.6-5.0); SODIUM 135.7 mmol/L (137-145)
[2018-06-14 21:59] VITALS: BP 128/61
== END 2018-06-14 22:02 | disposition short-term general hospital (02) ==
LOC: ER 10:02
DX: G45.9 Transient cerebral ischemic attack, unspecified (principal); N17.9 Acute kidney failure, unspecified; R20.2 Paresthesia of skin; R20.0 Anesthesia of skin; R53.1 Weakness; R47.1 Dysarthria and anarthria; R47.81 Slurred speech; K92.2 Gastrointestinal hemorrhage, unspecified; E87.5 Hyperkalemia; I10 Essential (primary) hypertension; E11.9 Type 2 diabetes mellitus without complications; J45.909 Unspecified asthma, uncomplicated; D64.9 Anemia, unspecified
CPT/HCPCS: 93005; 96376; 99285; 96361; 96375; 96365; 36415; 82962; 85025; 85610; 85730; 80048; 80053; 70551; 71045; 70360; 70450; 93010; J0610; J3490; A9270; J7030; J1815

== ENCOUNTER 2018-07-25 08:55 | Inpatient (IN) | payer MEDICARE, OTHER ==
[2018-07-25] MEDS ORDERED: RINGERS SOLUTION,LACTATED 1,000 ML IV ONE (09:17)
--- NOTE | 2018-07-25 09:18 | ER Document Report ---
ED General - General Chief Complaint: Dizziness Stated Complaint: DIZZINESS,FALLING Time Seen by Provider: 07/25/18 09:17 Notes: Patient is a 58-year-old female with diabetes mellitus, hypertension and anemia that presents to the emergency department for chief complaint of lightheadedness , nausea, and vomiting. Patient reports of the last 24-48 hours she has been having lightheadedness, and feeling like she may fall over, she states she has been unsteady on her feet because she is felt so lightheaded, she has had associated chills, nausea and did vomit today. She reports she is a history of vertigo, but this is different than the vertigo, she also has hypertension, and she did not take her medications this morning. Patient was found to be hypotensive, upon arrival to the ED. She denies having any pain at this time, specifically denies having any headache, chest pain, shortness of breath, abdominal pain or leg pain. She also denies having any black or melanotic stools, denies any bright red blood per rectum, or any hematemesis. Past Medical History: History of CVA, diabetes mellitus, anemia, hypertension, depression, vertigo Past Surgical History: EGD, colonoscopy, left heart cath, without intervention Social History: Denies tobacco, alcohol or drug use Family History: Reviewed and noncontributory for presenting illness Allergies: Reviewed, see documented allergy list. REVIEW OF SYSTEMS: Other than noted above, the 12 point review of systems was reviewed with the patient and were negative, all pertinent findings are included in the HPI. PHYSICAL EXAMINATION: Vital signs reviewed, nursing noted reviewed. GENERAL: Chronically ill-appearing female, rather anxious on exam HEAD: Atraumatic, normocephalic. EYES: Eyes appear normal, extraocular movements intact, sclera anicteric, conjunctiva are normal. ENT: nares patent, oropharynx clear without exudates. Moist mucous membranes. NECK: Normal range of motion, supple without lymphadenopathy LUNGS: Breath sounds clear to auscultation bilaterally and equal. No wheezes rales or rhonchi. HEART: Heart rate tachycardic, regular rhythm, no audible murmurs ABDOMEN: Soft, nontender, normoactive bowel sounds. No rebound, guarding, or rigidity. No masses appreciated. EXTREMITIES: Nontender, good range of motion, no pitting or edema. NEUROLOGICAL: No focal neurological deficits. Moves all extremities spontaneously Motor and sensory grossly intact on exam. PSYCH: Patient is anxious on exam SKIN: Warm, Dry, normal turgor, pallor noted TRAVEL OUTSIDE OF THE [place] IN LAST 30 DAYS: No - Related Data Allergies/Adverse Reactions: No Known Allergies Allergy (Verified 06/14/18 10:04) Past Medical History - Social History Smoking Status: Never Smoker Family History: DM, Hyperlipidemia, Hypertension - Past Medical History Cardiac Medical History: Reports: Hx Congestive Heart Failure, Hx Hypertension Pulmonary Medical History: Reports: Hx Asthma Endocrine Medical History: Reports: Hx Diabetes Mellitus Type 1, Hx Diabetes Mellitus Type 2 Renal/ Medical History: Denies: Hx Peritoneal Dialysis Psychiatric Medical History: Reports: Hx Depression Past Surgical History: Reports: Hx Vascular Surgery - Angio - Immunizations Hx Diphtheria, Pertussis, Tetanus Vaccination: Yes Hx Pneumococcal Vaccination: 04/27/15 Course - Re-evaluation Re-evalutation: Patient seen and examined vital signs reviewed. Laboratory data and imaging were ordered as appropriate for the patient's presenting symptoms and complaint, with consideration of any critical or life threatening conditions that may be associated with their obtained history and exam as noted above. Patient was treated with IV fluid bolusing, due to her hypotension, which did improve her low blood pressure, and improve her tachycardia, sepsis workup was initiated. Results were reviewed when available and demonstrated elevated lactic acid at 3.5, patient was also found to be anemic, which she appears to have a baseline anemia, her last hemoglobin was 8.2, 7.6 today, no immediate indication for blood transfusion as patient's blood pressure improved with IV fluids, no evidence of active bleeding. Also noted to have elevated potassium at 6.1, she was treated with hyperkalemia, cocktail, including calcium, insulin and glucose , Kayexalate, and sodium bicarbonate UA came back, consistent with urinary tract infection, with leukocytosis, elevated lactate, patient falls in the category of severe sepsis, she was given IV fluid bolusing, will start on IV Rocephin, blood cultures were ordered, urine culture ordered. The patient was re-evaluated and was improving, blood pressure was stable. Evaluation was most consistent with severe sepsis, UTI, hyperkalemia Results were discussed with the patient at this point after careful consideration I feel that that patient should be admitted to the hospital. This was discussed with the patient that it is in the best interest for their care to be admitted for further evaluation and management. Patient agreed with this plan of care. A call was placed to the admitted physician, Dr. De La Torre who graciously accepted the patient onto their service. *Note is created using voice recognition software and may contain spelling, syntax or grammatical errors. Laboratory 07/25/18 07/25/18 07/25/18 09:21 09:21 09:21 WBC 10.6 H RBC 2.59 L Hgb 7.6 L Hct 22.5 L MCV 87 MCH 29.2 MCHC 33.5 RDW 15.6 H Plt Count 252 Total Counted 100 Seg Neutrophils % Not Reportable Seg Neuts % (Manual) 91 H Lymphocytes % Not Reportable Lymphocytes % (Manual) 3 L Monocytes % Not Reportable Monocytes % (Manual) 4 Eosinophils % Not Reportable Eosinophils % (Manual) 1 Basophils % Not Reportable Basophils % (Manual) 1 Absolute Neutrophils Not Reportable Abs Neuts (Manual) 9.6 H Absolute Lymphocytes Not Reportable Abs Lymphs (Manual) 0.3 L Absolute Monocytes Not Reportable Abs Monocytes (Manual) 0.4 Absolute Eosinophils Not Reportable Absolute Eos (Manual) 0.1 Absolute Basophils Not Reportable Abs Basophils (Manual) 0.1 Toxic Granulation 1+ Clumped Platelets PRESENT Platelet Comment Not Reportable Polychromasia SLIGHT Poikilocytosis 1+ Anisocytosis SLIGHT Ovalocytes 1+ PT 15.9 H INR 1.21 VBG pH VBG pCO2 VBG HCO3 VBG Base Excess Sodium 136.9 L Potassium 6.1 H* Chloride 103 Carbon Dioxide 20 L Anion Gap 14 BUN 37 H Creatinine 1.28 H Est GFR ( Amer) 51 L Est GFR (Non-Af Amer) 43 L Glucose 254 H Lactic Acid Calcium 9.2 Total Bilirubin 0.9 Direct Bilirubin 0.6 H Neonat Total Bilirubin Not Reportable Neonat Direct Bilirubin Not Reportable Neonat Indirect Bili Not Reportable AST 54 H ALT 35 Alkaline Phosphatase 66 Troponin I Total Protein 7.1 Albumin 3.2 L Urine Color Urine Appearance Urine pH Ur Specific Waldron Urine Protein Urine Glucose (UA) Urine Ketones Urine Blood Urine Nitrite Urine Bilirubin Urine Urobilinogen Ur Leukocyte Esterase Urine WBC (Auto) Urine RBC (Auto) U Hyaline Cast (Auto) Urine Bacteria (Auto) Squamous Epi Cells Auto Urine Mucus (Auto) Urine Ascorbic Acid Blood Type Antibody Screen 07/25/18 07/25/18 07/25/18 09:21 09:21 10:00 WBC RBC Hgb Hct MCV MCH MCHC RDW Plt Count Total Counted Seg Neutrophils % Seg Neuts % (Manual) Lymphocytes % Lymphocytes % (Manual) Monocytes % Monocytes % (Manual) Eosinophils % Eosinophils % (Manual) Basophils % Basophils % (Manual) Absolute Neutrophils Abs Neuts (Manual) Absolute Lymphocytes Abs Lymphs (Manual) Absolute Monocytes Abs Monocytes (Manual) Absolute Eosinophils Absolute Eos (Manual) Absolute Basophils Abs Basophils (Manual) Toxic Granulation Clumped Platelets Platelet Comment Polychromasia Poikilocytosis Anisocytosis Ovalocytes PT INR VBG pH 7.29 L VBG pCO2 39.9 VBG HCO3 18.6 L VBG Base Excess -7.5 Sodium Potassium Chloride Carbon Dioxide Anion Gap BUN Creatinine Est GFR ( Amer) Est GFR (Non-Af Amer) Glucose Lactic Acid 3.6 H Calcium Total Bilirubin Direct Bilirubin Neonat Total Bilirubin Neonat Direct Bilirubin Neonat Indirect Bili AST ALT Alkaline Phosphatase Troponin I 0.022 Total Protein Albumin Urine Color Urine Appearance Urine pH Ur Specific Waldron Urine Protein Urine Glucose (UA) Urine Ketones Urine Blood Urine Nitrite Urine Bilirubin Urine Urobilinogen Ur Leukocyte Esterase Urine WBC (Auto) Urine RBC (Auto) U Hyaline Cast (Auto) Urine Bacteria (Auto) Squamous Epi Cells Auto Urine Mucus (Auto) Urine Ascorbic Acid Blood Type Antibody Screen 07/25/18 07/25/18 11:20 11:30 WBC RBC Hgb Hct MCV MCH MCHC RDW Plt Count Total Counted Seg Neutrophils % Seg Neuts % (Manual) Lymphocytes % Lymphocytes % (Manual) Monocytes % Monocytes % (Manual) Eosinophils % Eosinophils % (Manual) Basophils % Basophils % (Manual) Absolute Neutrophils Abs Neuts (Manual) Absolute Lymphocytes Abs Lymphs (Manual) Absolute Monocytes Abs Monocytes (Manual) Absolute Eosinophils Absolute Eos (Manual) Absolute Basophils Abs Basophils (Manual) Toxic Granulation Clumped Platelets Platelet Comment Polychromasia Poikilocytosis Anisocytosis Ovalocytes PT INR VBG pH VBG pCO2 VBG HCO3 VBG Base Excess Sodium Potassium Chloride Carbon Dioxide Anion Gap BUN Creatinine Est GFR ( Amer) Est GFR (Non-Af Amer) Glucose Lactic Acid Calcium Total Bilirubin Direct Bilirubin Neonat Total Bilirubin Neonat Direct Bilirubin Neonat Indirect Bili AST ALT Alkaline Phosphatase Troponin I Total Protein Albumin Urine Color YELLOW Urine Appearance CLOUDY Urine pH 5.0 Ur Specific Waldron 1.013 Urine Protein 30 H Urine Glucose (UA) 50 H Urine Ketones NEGATIVE Urine Blood NEGATIVE Urine Nitrite NEGATIVE Urine Bilirubin NEGATIVE Urine Urobilinogen NEGATIVE Ur Leukocyte Esterase LARGE H Urine WBC (Auto) 88 Urine RBC (Auto) 2 U Hyaline Cast (Auto) 1 Urine Bacteria (Auto) 3+ Squamous Epi Cells Auto 2 Urine Mucus (Auto) RARE Urine Ascorbic Acid NEGATIVE Blood Type O POSITIVE Antibody Screen NEGATIVE Chest X-Ray 07/25/18 09:27 IMPRESSION: NO ACUTE RADIOGRAPHIC FINDING IN THE CHEST. - Laboratory Result Diagrams: 07/25/18 09:21 07/25/18 09:21 Laboratory results interpreted by me: 07/25/18 07/25/18 07/25/18 09:21 09:21 09:21 WBC 10.6 H RBC 2.59 L Hgb 7.6 L Hct 22.5 L RDW 15.6 H Seg Neuts % (Manual) 91 H Lymphocytes % (Manual) 3 L Abs Neuts (Manual) 9.6 H Abs Lymphs (Manual) 0.3 L PT 15.9 H VBG pH VBG HCO3 Sodium 136.9 L Potassium 6.1 H* Carbon Dioxide 20 L BUN 37 H Creatinine 1.28 H Est GFR ( Amer) 51 L Est GFR (Non-Af Amer) 43 L Glucose 254 H Lactic Acid Direct Bilirubin 0.6 H AST 54 H Albumin 3.2 L Urine Protein Urine Glucose (UA) Ur Leukocyte Esterase 07/25/18 07/25/18 07/25/18 09:21 10:00 11:30 WBC RBC Hgb Hct RDW Seg Neuts % (Manual) Lymphocytes % (Manual) Abs Neuts (Manual) Abs Lymphs (Manual) PT VBG pH 7.29 L VBG HCO3 18.6 L Sodium Potassium Carbon Dioxide BUN Creatinine Est GFR ( Amer) Est GFR (Non-Af Amer) Glucose Lactic Acid 3.6 H Direct Bilirubin AST Albumin Urine Protein 30 H Urine Glucose (UA) 50 H Ur Leukocyte Esterase LARGE H - EKG Interpretation by Me Additional EKG results interpreted by me: EKG demonstrates sinus tachycardia with a ventricular rate of 107 bpm, normal axis, normal intervals, no evidence of acute ischemia on this EKG, this is compared with prior EKG from 06/14/2018, without significant change. Critical Care Note - Critical Care Note Total time excluding time spent on procedures (mins): 45 Comments: Critical care time 45 minutes exclusive from separate billable procedures for a patient requiring complex medical decision making, and high potential for clinical deterioration. The patient with severe sepsis, hyperkalemia, requiring acute intervention. Time spent obtaining history from patient or surrogate, discussions with consultants, development of treatment plan with patient or surrogate, evaluation of patient's response to treatment, examination of patient, ordering and performing treatments and interventions, ordering and review of laboratory studies, re-evaluation of patient's condition , ordering and review of radiographic studies and review of old charts Discharge - Discharge Clinical Impression: Severe sepsis, UTI (urinary tract infection), Hyperkalemia Condition: Stable Disposition: ADMITTED INPATIENT Admitting Provider: Hospitalist - DR. DE LA TORRE Unit Admitted: [facility]
[2018-07-25] MEDS ORDERED: NORMAL SALINE 1000 ML 1,000 ML IV ONE (09:31)
[2018-07-25 09:41] LABS: HEMATOCRIT 22.5 % (36.0-47.0); MEAN CORPUSCULAR HEMOGLOBIN 29.2 pg (27.0-33.4); MEAN CORPUSCULAR HGB CONC 33.5 g/dL (32.0-36.0); MEAN CORPUSCULAR VOLUME 87 fl (80-97); PLATELET COUNT 252 10^3/uL (150-450); RED BLOOD COUNT 2.59 10^6/uL (3.72-5.28); RED CELL DISTRIBUTION WIDTH 15.6 % (11.5-14.0); WHITE BLOOD COUNT 10.6 10^3/uL (4.0-10.5)
[2018-07-25 10:00] LABS: ALANINE AMINOTRANSFERASE 35 U/L (9-52); ALBUMIN 3.2 g/dL (3.5-5.0); ALKALINE PHOSPHATASE 66 U/L (38-126); ANION GAP 14 (5-19); ASPARTATE AMINO TRANSFERASE 54 U/L (14-36); BILIRUBIN,DIRECT 0.6 mg/dL (0.0-0.4); BILIRUBIN,TOTAL 0.9 mg/dL (0.2-1.3); BLOOD UREA NITROGEN 37 mg/dL (7-20); CALCIUM 9.2 mg/dL (8.4-10.2); CARBON DIOXIDE 20 mmol/L (22-30); CHLORIDE 103 mmol/L (98-107); GLUCOSE 254 mg/dL (75-110); SODIUM 136.9 mmol/L (137-145); TOTAL PROTEIN 7.1 g/dL (6.3-8.2)
--- NOTE | 2018-07-25 10:07 | RADIOLOGY REPORT (SQ) ---
EXAM DESCRIPTION: CHEST SINGLE VIEW COMPLETED DATE/TIME: 07/25/2018 9:46 am REASON FOR STUDY: tachycardia, hypotension COMPARISON: 06/14/2018. EXAM PARAMETERS: NUMBER OF VIEWS: One view. TECHNIQUE: Single frontal radiographic view of the chest acquired. RADIATION DOSE: NA LIMITATIONS: None. FINDINGS: LUNGS AND PLEURA: No opacities, masses or pneumothorax. No pleural effusion. MEDIASTINUM AND HILAR STRUCTURES: No masses. Contour normal. HEART AND VASCULAR STRUCTURES: Heart normal in size. Normal vasculature. BONES: No acute findings. HARDWARE: None in the chest. OTHER: No other significant finding. IMPRESSION: NO ACUTE RADIOGRAPHIC FINDING IN THE CHEST. TECHNICAL DOCUMENTATION: JOB ID: [id number] [employer]- All Rights Reserved Reading location - IP/workstation name: [email or web address]
[2018-07-25 10:16] LABS: POTASSIUM 6.1 mmol/L (3.6-5.0)
[2018-07-25] MEDS ORDERED: SODIUM BICARBONATE 8.4% INJ 50 MEQ/50 ML DISP.SYRIN IV ONE (10:16)
[2018-07-25] MEDS ORDERED: DEXTROSE 50%-WATER 25 GM/50 ML DISP.SYRIN IV ONE (10:17)
[2018-07-25] MEDS ORDERED: INSULIN REG, HUMAN 100 UNIT/ML 3 ML VIAL (PYX) IV ONE (10:17)
[2018-07-25] MEDS ORDERED: CALCIUM GLUCONATE 1000 MG/10 ML INJ IV ONE (10:17)
[2018-07-25] MEDS ORDERED: SODIUM POLYSTYRENE SULFONATE 15 GM/60 ML PO ONE (10:18)
[2018-07-25 10:19] LABS: INTERNATIONAL RATION (INR) 1.21; PROTHROMBIN TIME 15.9 SEC (11.4-15.4)
[2018-07-25 10:35] LABS: HEMOGLOBIN 7.6 g/dL (12.0-15.5)
[2018-07-25 10:50] LABS: VENOUS BLOOD BASE EXCESS -7.5 mmol/L; VENOUS BLOOD HCO3 18.6 mmol/L (20-32); VENOUS BLOOD PCO2 39.9 mmHg (35-63); VENOUS BLOOD PH 7.29 (7.30-7.42)
[2018-07-25 10:53] LABS: ABSOLUTE LYMPHOCYTES# (MANUAL) 0.3 10^3/uL (0.5-4.7); ABSOLUTE MONOCYTES # (MANUAL) 0.4 10^3/uL (0.1-1.4); ABSOLUTE NEUTROPHILS# (MANUAL) 9.6 10^3/uL (1.7-8.2); BASOPHILS % (MANUAL) 1 % (0-2); EOSINOPHILS % (MANUAL) 1 % (0-6); LYMPHOCYTES % (MANUAL) 3 % (13-45); MONOCYTES % (MANUAL) 4 % (3-13); SEGMENTED NEUTROPHILS % (MAN) 91 % (42-78); TOTAL CELLS COUNTED 100
[2018-07-25 10:54] LABS: ANISOCYTOSIS SLIGHT; OVALOCYTES 1+; PLATELET CLUMPS PRESENT; POIKILOCYTOSIS 1+; POLYCHROMASIA SLIGHT; TOXIC GRANULATION 1+
[2018-07-25 13:12] LABS: APPEARANCE,URINE CLOUDY; BILIRUBIN,URINE NEGATIVE (NEGATIVE); COLOR,URINE YELLOW; GLUCOSE, URINE 50 mg/dL (NEGATIVE); KETONES,URINE NEGATIVE (NEGATIVE); LEUKOCYTE ESTERASE,URINE LARGE (NEGATIVE); NITRITE,URINE NEGATIVE (NEGATIVE); PROTEIN,URINE 30 mg/dL (NEGATIVE); URINE SPECIFIC GRAVITY 1.013; UROBILINOGEN,URINE NEGATIVE mg/dL (<2.0)
--- NOTE | 2018-07-25 13:35 | EKG REPORT ---
SEVERITY:- OTHERWISE NORMAL ECG - SINUS TACHYCARDIA : Confirmed by: Kadeem Cali MD 25-Jul-2018 13:34:44
[2018-07-25] MEDS ORDERED: CEFTRIAXONE INJ 1000 MG VIAL IV ONE (13:38)
[2018-07-25] MEDS ORDERED: ALBUTEROL SULFATE 0.083% NEB 2.5 MG/3 ML AMPUL NEB PRN (14:41)
[2018-07-25] MEDS ORDERED: ALBUTEROL SULFATE HFA (90 MCG/PUFF) 200 PUFF/8.5 GM MDI IH PRN (14:42)
[2018-07-25] MEDS ORDERED: MECLIZINE HCL 12.5 MG TABLET PO PRN (14:42)
[2018-07-25] MEDS ORDERED: ERGOCALCIFEROL (VITAMIN D2) 50000 UNIT (1.25 MG) CAPSULE PO SCH (15:00)
[2018-07-25] MEDS ORDERED: DEXTROSE 50%-WATER 25 GM/50 ML DISP.SYRIN IV PRN ×2 (15:10)
[2018-07-25] MEDS ORDERED: GLUCAGON,HUMAN RECOMB 1 MG INJ IM PRN (15:10)
[2018-07-25] MEDS ORDERED: DEXTROSE 40% GEL 15 GM TUBE PO PRN ×2 (15:10)
--- NOTE | 2018-07-25 15:19 | PDOC H&P ---
History of Present Illness Admission Date/PCP: 07/25/18 14:14 Patient complains of: Fever chills and dizziness. History of Present Illness: DUSTIN MALDONADO is a 58 year old female With history of CVA questionable atrial flutter depression anxiety disorder, hypertension diabetes mellitus hypercholesterolemia congestive heart failure neuropathy, CVA 3 times he anemia, chronic renal insufficiency came to the emergency room with complaints of fever and chills for the last 1 week. This fevers and chills are associated with burning sensation of the whole body, she is also given the history of dizziness for the last 1 month. Denies any cough cold or chest pain nauseated from yesterday vomited a few times yesterday clear liquids denies any blood in the vomitus. Complaining of decreased appetite for the last few days she had a given the history of constipation. In the ER she was given lactulose for a high potassium and started having the several bowel movements. Patient is also stating she stopped taking depression medications Wellbutrin ,previous medication as per the patient Zoloft was discontinued started on Wellbutrin she did not like the Wellbutrin . Patient went to see the primary care physician on , for blood work was done next day family got a call saying the potassium levels are high she needs to come back to the lab for further testing, but because the patient is not being well she decided to come to the emergency room instead. Patient is complaining of burning sensation during urination with increased frequency and foul-smelling. Patient is taking cranberry juice for the UTI symptoms at home. She does given the history of CVA recently after that she is continued to have dizzy spells. Per the family patient came in to this hospital a few weeks ago transfer to tertiary Hospital and for further investigations the is final findings snot conclusive. Patient walks with a walker and cane at home. The emergency room blood cultures urine culture was done. Started on IV fluids. She was given IV Rocephin 1 g. She was given a cocktail for hyperkalemia. Patient denies any headaches, falls. But complaining of chronic disease spells. She denies any seeing rashes. Past Medical History Cardiac Medical History: Reports: Congestive Heart Failure, Hyperlipidema, Hypertension Pulmonary Medical History: Reports: Asthma Neurological Medical History: Reports: Other - History of CVA Endocrine Medical History: Reports: Diabetes Mellitus Type 1, Diabetes Mellitus Type 2 Renal/ Medical History: Reports: Chronic Kidney Disease Psychiatric Medical History: Reports: Depression Hematology: Reports: Anemia Past Surgical History Past Surgical History: Reports: Section, Vascular Surgery - Angio Social History Smoking Status: Never Smoker Frequency of Alcohol Use: None Hx Recreational Drug Use: No Drugs: None Hx Prescription Drug Abuse: No Family History Family History: DM, Hyperlipidemia, Hypertension Parental Family History Reviewed: Yes Children Family History Reviewed: Yes Sibling(s) Family History Reviewed.: Yes Medication/Allergy Home Medications: Albuterol Sulfate [Proair HFA Inhalation Aerosol 8.5 gm MDI] 2 puff IH Q6HP PRN 07/25/18 Bupropion HCl [Wellbutrin Xl 150 mg 24hr Tablet] 150 mg PO DAILY 07/25/18 Buspirone HCl [Buspar 5 mg Tablet] 7.5 mg PO DAILY 07/25/18 Carvedilol [Coreg 12.5 mg Tablet] 12.5 mg PO Q12 07/25/18 Celecoxib [Celebrex 100 mg Capsule] 100 mg PO BID 07/25/18 Clopidogrel Bisulfate [Plavix 75 mg Tablet] 75 mg PO DAILY 07/25/18 Ergocalciferol (Vitamin D2) [Drisdol 50,000 unit (1.25MG) Capsule] 50,000 unit PO RICHARD@1000 07/25/18 Fenofibrate 160 mg PO DAILY 07/25/18 Furosemide [Lasix 20 mg Tablet] 20 mg PO DAILY 07/25/18 Gabapentin [Neurontin 300 mg Capsule] 300 mg PO Q8HP PRN 07/25/18 Glipizide [Glipizide Xl] 10 mg PO DAILY 07/25/18 Insulin Glargine,Hum.rec.anlog [Lantus Insulin 100 Unit/mL] 10 units SQ QHS Lisinopril [Zestril] 5 mg PO DAILY 07/25/18 Loratadine [Claritin 10 mg Tablet] 10 mg PO DAILY 07/25/18 Meclizine HCl [Antivert 12.5 mg Tablet] 12.5 mg PO TIDP PRN 07/25/18 Metformin HCl [Glucophage] 1,000 mg PO BID 07/25/18 Mometasone/Formoterol [Dulera 100 Mcg/5 Mcg Inhaler] 2 puff IH Q12 07/25/18 Montelukast Sodium [Singulair 10 mg Tablet] 10 mg PO QPM 07/25/18 Sitagliptin Phosphate [Januvia] 100 mg PO DAILY 07/25/18 Allergies/Adverse Reactions: No Known Allergies Allergy (Verified 06/14/18 10:04) Review of Systems Constitutional: PRESENT: chills, fever(s) Cardiovascular: ABSENT: chest pain, dyspnea on exertion Respiratory: ABSENT: cough, dyspnea, hemoptysis Gastrointestinal: PRESENT: constipation, diarrhea, nausea, vomiting Genitourinary: PRESENT: dysuria Neurological: PRESENT: dizziness Psychiatric: PRESENT: anxiety Endocrine: ABSENT: cold intolerance, heat intolerance, polydipsia, polyuria Hematologic/Lymphatic: ABSENT: easy bleeding, easy bruising Physical Exam General appearance: PRESENT: mild distress Head exam: PRESENT: atraumatic Eye exam: PRESENT: PERRLA Mouth exam: PRESENT: dry mucosa Neck exam: ABSENT: carotid bruit, JVD, lymphadenopathy, thyromegaly Respiratory exam: PRESENT: clear to auscultation roderick. ABSENT: rales, rhonchi, wheezes Cardiovascular exam: PRESENT: RRR. ABSENT: diastolic murmur, rubs, systolic murmur GI/Abdominal exam: PRESENT: normal bowel sounds, soft. ABSENT: distended, guarding, mass, organolmegaly, rebound, tenderness Neurological exam: PRESENT: alert, awake, oriented to person, oriented to place , oriented to time, oriented to situation, CN II-XII grossly intact. ABSENT: motor sensory deficit Psychiatric exam: PRESENT: appropriate affect, normal mood. ABSENT: homicidal ideation, suicidal ideation Results Impressions: Chest X-Ray 07/25/18 09:27 IMPRESSION: NO ACUTE RADIOGRAPHIC FINDING IN THE CHEST. Assessment & Plan - Diagnosis (1) Severe sepsis Is this a current diagnosis for this admission?: Yes Plan: 07/25/2018 came into the emergency room with fever chills for the last 1 week in association with the burning sensation during the urination associated with increased frequency patient is found to be hypotensive in the emergency room she was started on IV fluids she is still tachycardic at the time of examination and hypotensive at the time of examination. Latest blood pressures are 90/60. Calcium was 3.6 on admission repeat lactic acid is 1.2. In the emergency room blood cultures urine culture was sent started on IV Rocephin. I started her on Maxipime 2 g IV daily. Sepsis protocol was implemented. We will wait for the urine cultures blood cultures. Chest x-ray is normal. Patient was placed on oxygen 2 L nasal cannula. (2) Hyperkalemia Is this a current diagnosis for this admission?: Yes Plan: 07/25/2018. Patient has lab work was done as an outpatient on at PCP office patient was advised to come back for further lab investigations yesterday but the patient was sick to go and that she ended up in the ER here today in the emergency room potassium 6.1 patient was given lactulose calcium gluconate insulin and glucose in the emergency room. KG shows sinus tachycardia. (3) UTI (urinary tract infection) Is this a current diagnosis for this admission?: Yes Plan: 07/25/2018 patient given the complaints of increased frequency, foul-smelling urination, burning sensation during the urination. Urine analysis shows leucocyte esterase is large. Patient was started on Maxipime 2 g IV daily. Wait for the urine culture reports. (4) Diabetes Qualifiers: Diabetes mellitus type: type 2 Is this a current diagnosis for this admission?: Yes Plan: 07/25/2018 patient has history of type 2 diabetes. Patient's latest blood sugars are 254. And is on Januvia 800 100 mg daily at home, glargine insulin 10 units at bedtime, glipizide 10 mg p.o. daily at home. We will place her on insulin sliding scale and also resume her home medications. I am going to check her hemoglobin A1c. Dietary consult will be requested. (5) Hypotension Is this a current diagnosis for this admission?: Yes Plan: 07/25/2008 patient is hypotensive at the time of admission probably secondary to sepsis patient is on lisinopril, Coreg at home and we are going to hold her blood pressure medication for now. Started on normal saline at 100 cc/h. (6) Iron deficiency anemia Qualifiers: Iron deficiency anemia type: unspecified iron deficiency Qualified Code(s) : D50.9 - Iron deficiency anemia, unspecified Is this a current diagnosis for this admission?: Yes Plan: 07/25/2018 patient and family giving the history of iron deficiency anemia. As per the family hemoglobin is around 8. In the ER hemoglobin is 7.6. We are going to check CBC on regular basis if necessary we give blood transfusion. (7) CVA (cerebral vascular accident) Is this a current diagnosis for this admission?: Yes Plan: 07/25/2018. As per the patient and family she was admitted for CVA here in this hospital a few weeks ago transferred to higher level of care final findings are inconclusive. She walks with a cane and walker at home. Denies any headaches at this time. But complaining of chronic dizziness. She takes meclizine at home for chronic dizziness. Will resume meclizine during this admission. (8) Depression Qualifiers: Major depression episode severity: unspecified Is this a current diagnosis for this admission?: Yes Plan: 07/25/2018 as per the patient , she thinks she was on Zoloft before but recently it was changed to Wellbutrin by the primary care physician patient does like does not like to take the Wellbutrin and stopped taking that medication. Patient is also on BuSpar we are planning to continue BuSpar during this admission. (9) CHF (congestive heart failure) Qualifiers: Heart failure chronicity: unspecified Is this a current diagnosis for this admission?: Yes Plan: 07/25/2018 patient and family giving the history of congestive heart failure. Patient is not in fluid overload. We are going to arrange for the echocardiogram. - Time Time Spent: 50 to 70 Minutes Medications reviewed and adjusted accordingly: Yes Anticipated discharge: Home
[2018-07-25 15:47] LABS: CREATINE KINASE MB 0.47 ng/mL (<4.55); TROPONIN I 0.026 ng/mL
[2018-07-25] MEDS ORDERED: PROMETHAZINE HCL INJ 25 MG/1 ML VIAL ONE (15:55)
[2018-07-25] MEDS: NORMAL SALINE 1000 ML 1,000 ML IV PRN ×2 (16:31→21:58)
[2018-07-25] MEDS: ONDANSETRON HCL INJ/PF 4 MG/2 ML SDV IV PRN (17:00)
[2018-07-25] MEDS: GLIPIZIDE 5 MG TABLET PO SCH (17:03)
[2018-07-25] MEDS: ACETAMINOPHEN 325 MG TABLET PO PRN (17:03)
[2018-07-25] MEDS: MONTELUKAST SODIUM 10 MG TABLET PO SCH (18:18)
[2018-07-25] MEDS: INSULIN REG, HUMAN 100 UNIT/ML 3 ML VIAL (PYX) SUBCUT PRN (21:23)
[2018-07-25] MEDS: ZOLPIDEM TARTRATE 5 MG TABLET PO SCH (21:24)
[2018-07-25] MEDS: BUSPIRONE HCL 10 MG TABLET PO SCH (21:24)
[2018-07-25] MEDS: INSULIN GLARGINE,HUM.REC.ANLOG 300 UNIT/3 ML INSULN.PEN SUBCUT SCH (21:24)
[2018-07-25] MEDS: FAMOTIDINE INJ/PF 20 MG/2 ML SDV IV SCH (21:26)
[2018-07-25 21:42] LABS: CREATINE KINASE MB 0.43 ng/mL (<4.55); TROPONIN I 0.056 ng/mL
[2018-07-25] MEDS: CEFEPIME 2 GM/D5W RTU 2 GM/50 ML RTUPB IV SCH (21:57)
[2018-07-25] MEDS ORDERED: GABAPENTIN 300 MG CAPSULE PO SCH (22:00)
[2018-07-25] MEDS ORDERED: MONTELUKAST SODIUM 10 MG TABLET PO SCH (22:00)
[2018-07-25] MEDS ORDERED: (PENDING PHARMACY ID) (Mometasone/Formoterol [Dulera 100 Mcg/5 Mcg Inhaler] 2 PUFF) IH SCH (22:00)
[2018-07-26 03:47] LABS: ABSOLUTE LYMPHOCYTES (AUTO) 1.1 10^3/uL (0.5-4.7); ABSOLUTE MONOCYTES (AUTO) 0.8 10^3/uL (0.1-1.4); ABSOLUTE NEUT (AUTO) 7.7 10^3/uL (1.7-8.2); BASOPHILS % (AUTO) 0.4 % (0-2); EOSINOPHILS % (AUTO) 0.5 % (0-6); HEMATOCRIT 22.4 % (36.0-47.0); LYMPHOCYTES % (AUTO) 10.9 % (13-45); MEAN CORPUSCULAR HEMOGLOBIN 28.9 pg (27.0-33.4); MEAN CORPUSCULAR HGB CONC 33.4 g/dL (32.0-36.0); MEAN CORPUSCULAR VOLUME 86 fl (80-97); MONOCYTES % (AUTO) 8.3 % (3-13); PLATELET COUNT 222 10^3/uL (150-450); RED BLOOD COUNT 2.59 10^6/uL (3.72-5.28); RED CELL DISTRIBUTION WIDTH 15.4 % (11.5-14.0); SEGMENTED NEUTROPHILS % (AUTO) 79.9 % (42-78); TOTAL CELLS COUNTED % (AUTO) 100 %; WHITE BLOOD COUNT 9.7 10^3/uL (4.0-10.5)
[2018-07-26 03:52] LABS: HEMOGLOBIN 7.5 g/dL (12.0-15.5)
[2018-07-26 03:55] LABS: ALANINE AMINOTRANSFERASE 31 U/L (9-52); ALBUMIN 2.9 g/dL (3.5-5.0); ALKALINE PHOSPHATASE 53 U/L (38-126); ANION GAP 10 (5-19); ASPARTATE AMINO TRANSFERASE 40 U/L (14-36); BILIRUBIN,DIRECT 0.4 mg/dL (0.0-0.4); BILIRUBIN,TOTAL 0.5 mg/dL (0.2-1.3); BLOOD UREA NITROGEN 23 mg/dL (7-20); CARBON DIOXIDE 26 mmol/L (22-30); CHLORIDE 107 mmol/L (98-107); CHOLESTEROL 50.02 mg/dL (0-200); GLUCOSE 190 mg/dL (75-110); POTASSIUM 4.5 mmol/L (3.6-5.0); SODIUM 142.6 mmol/L (137-145); TOTAL PROTEIN 6.4 g/dL (6.3-8.2); TRIGLYCERIDES 124 mg/dL (<150)
[2018-07-26 04:07] LABS: CREATINE KINASE MB 0.52 ng/mL (<4.55); TROPONIN I 0.022 ng/mL
[2018-07-26 04:10] LABS: DIRECT LDL < 30 mg/dL (<100)
[2018-07-26] MEDS ORDERED: MAGNESIUM SULFATE 1 GM/D5W 100 ML IV SCH (04:30)
[2018-07-26] MEDS ORDERED: MAGNESIUM OXIDE 400 MG TABLET PO ONE (04:30)
[2018-07-26 06:38] LABS: INTERNATIONAL RATION (INR) 1.25; PROTHROMBIN TIME 16.3 SEC (11.4-15.4)
[2018-07-26] MEDS ORDERED: NORMAL SALINE 250 ML IV PRN ×2 (08:55)
[2018-07-26] MEDS ORDERED: MAGNESIUM SULFATE 454 GM CARTON TP ONE (09:00)
--- NOTE | 2018-07-26 09:15 | PDOC PROGRESS REPORT ---
Subjective Progress Note for:: 07/26/18 Subjective:: 58-year-old female came to the emergency room with complaints of fevers and chills and in the emergency room found to have a potassium of 6.1. And she had a spike of fever of 103 last night. She is getting Tylenol as needed. The blood cultures came back positive for gram-negative rods. Patient states she is slightly better compared to yesterday. Reason For Visit: SEPSIS Physical Exam Vital Signs: Temp Pulse Resp BP Pulse Ox 98.7 F 106 H 20 141/62 H 97 07/26/18 03:44 07/26/18 03:44 07/26/18 03:44 07/26/18 03:44 07/26/18 03:44 Intake & Output 07/25/18 07/26/18 07/27/18 06:59 06:59 06:59 Intake Total 1285 Output Total 950 Balance 335 Weight 69.6 kg General appearance: PRESENT: no acute distress Head exam: PRESENT: atraumatic Eye exam: PRESENT: PERRLA Neck exam: ABSENT: carotid bruit, JVD, lymphadenopathy, thyromegaly Respiratory exam: PRESENT: clear to auscultation roderick. ABSENT: rales, rhonchi, wheezes Cardiovascular exam: PRESENT: RRR. ABSENT: diastolic murmur, rubs, systolic murmur GI/Abdominal exam: PRESENT: normal bowel sounds, soft. ABSENT: distended, guarding, mass, organolmegaly, rebound, tenderness Neurological exam: PRESENT: alert, awake, oriented to person, oriented to place , oriented to time, oriented to situation, CN II-XII grossly intact. ABSENT: motor sensory deficit Psychiatric exam: PRESENT: appropriate affect, normal mood. ABSENT: homicidal ideation, suicidal ideation Results Laboratory Results: 07/26/18 03:22 07/26/18 03:22 07/25/18 07/25/18 07/25/18 14:19 14:53 15:50 WBC RBC Hgb Hct MCV MCH MCHC RDW Plt Count Seg Neutrophils % Lymphocytes % Monocytes % Eosinophils % Basophils % Absolute Neutrophils Absolute Lymphocytes Absolute Monocytes Absolute Eosinophils Absolute Basophils Sodium Potassium 5.2 H Chloride Carbon Dioxide Anion Gap BUN Creatinine Est GFR ( Amer) Est GFR (Non-Af Amer) Glucose Lactic Acid 1.2 Calcium Magnesium Total Bilirubin AST ALT Alkaline Phosphatase Total Protein Albumin Triglycerides Cholesterol LDL Cholesterol Direct VLDL Cholesterol HDL Cholesterol TSH Urine Color Cancelled Urine Appearance Cancelled Urine pH Cancelled Ur Specific [place] Cancelled Urine Protein Cancelled Urine Glucose (UA) Cancelled Urine Ketones Cancelled Urine Blood Cancelled Urine Nitrite Cancelled Ur Leukocyte Esterase Cancelled Urine WBC (Auto) Cancelled Urine RBC (Auto) Cancelled 07/26/18 07/26/18 07/26/18 03:22 03:22 03:22 WBC 9.7 RBC 2.59 L Hgb 7.5 L Hct 22.4 L MCV 86 MCH 28.9 MCHC 33.4 RDW 15.4 H Plt Count 222 Seg Neutrophils % 79.9 H Lymphocytes % 10.9 L Monocytes % 8.3 Eosinophils % 0.5 Basophils % 0.4 Absolute Neutrophils 7.7 Absolute Lymphocytes 1.1 Absolute Monocytes 0.8 Absolute Eosinophils 0.0 Absolute Basophils 0.0 Sodium 142.6 Potassium 4.5 Chloride 107 Carbon Dioxide 26 Anion Gap 10 BUN 23 H Creatinine 0.84 Est GFR ( Amer) > 60 Est GFR (Non-Af Amer) > 60 Glucose 190 H Lactic Acid Calcium 9.0 Magnesium 1.2 L* Total Bilirubin 0.5 AST 40 H ALT 31 Alkaline Phosphatase 53 Total Protein 6.4 Albumin 2.9 L Triglycerides 124 Cholesterol 50.02 LDL Cholesterol Direct < 30 VLDL Cholesterol 25.0 HDL Cholesterol 21 L TSH 1.08 Urine Color Urine Appearance Urine pH Ur Specific [place] Urine Protein Urine Glucose (UA) Urine Ketones Urine Blood Urine Nitrite Ur Leukocyte Esterase Urine WBC (Auto) Urine RBC (Auto) 07/25/18 07/25/18 07/25/18 14:53 14:53 20:50 Creatine Kinase 40 50 CK-MB (CK-2) 0.47 Troponin I 0.026 07/25/18 07/26/18 07/26/18 20:50 03:22 03:22 Creatine Kinase 49 CK-MB (CK-2) 0.43 0.52 Troponin I 0.056 0.022 Impressions: Chest X-Ray 07/25/18 09:27 IMPRESSION: NO ACUTE RADIOGRAPHIC FINDING IN THE CHEST. Assessment & Plan - Diagnosis (1) Severe sepsis Is this a current diagnosis for this admission?: Yes Plan: 07/25/2018 came into the emergency room with fever chills for the last 1 week in association with the burning sensation during the urination associated with increased frequency patient is found to be hypotensive in the emergency room she was started on IV fluids she is still tachycardic at the time of examination and hypotensive at the time of examination. Latest blood pressures are 90/60. Calcium was 3.6 on admission repeat lactic acid is 1.2. In the emergency room blood cultures urine culture was sent started on IV Rocephin. I started her on Maxipime 2 g IV daily. Sepsis protocol was implemented. We will wait for the urine cultures blood cultures. Chest x-ray is normal. Patient was placed on oxygen 2 L nasal cannula. 07/26/2018 pt had spike in temperature of 103 last night. Started on diuretics cefepime yesterday. Cultures came back positive for gram-negative rods. Urine culture is pending. I am going to add levofloxacin 500 mg IV daily. Latest lactic acid level is 1.2. She is on IV fluids. On oxygen 2 L nasal cannula. Sepsis protocol was implemented. Chest x-ray was normal. (2) Hyperkalemia Is this a current diagnosis for this admission?: Yes Plan: 07/25/2018. Patient has lab work was done as an outpatient on at PCP office patient was advised to come back for further lab investigations yesterday but the patient was sick to go and that she ended up in the ER here today in the emergency room potassium 6.1 patient was given lactulose calcium gluconate insulin and glucose in the emergency room. KG shows sinus tachycardia. 07/26/2018 in the ER potassium levels are 6.1 treated with cocktail latest potassium is 4.5. No EKG changes. Hyperkalemia resolved. (3) UTI (urinary tract infection) Is this a current diagnosis for this admission?: Yes Plan: 07/25/2018 patient given the complaints of increased frequency, foul-smelling urination, burning sensation during the urination. Urine analysis shows leucocyte esterase is large. Patient was started on Maxipime 2 g IV daily. Wait for the urine culture reports. 07/26/2018 with complaint's of decreasing frequency of urination foul-smelling urine and burning sensation during the urination at the time of examination in the ER. Urine cultures are pending. She is on cefepime . started on levofloxacin 400 mg IV daily also. (4) Diabetes Qualifiers: Diabetes mellitus type: type 2 Is this a current diagnosis for this admission?: Yes Plan: 07/25/2018 patient has history of type 2 diabetes. Patient's latest blood sugars are 254. And is on Januvia 100 mg daily, glargine insulin 10 units at bedtime, glipizide 10 mg p.o. daily. 100 mg daily at home, glargine insulin 10 units at bedtime, glipizide 10 mg p.o. daily at home. We will place her on insulin sliding scale and also resume her home medications. I am going to check her hemoglobin A1c. Dietary consult will be requested. 07/26/2018 hemoglobin A1c 6.4. His blood sugar is 214. Patient is on insulin sliding scale, Januvia 100 mg p.o. daily, glipizide 10 mg p.o. daily, glargine insulin 10 units at bedtime, we will continue the present management. (5) Hypotension Is this a current diagnosis for this admission?: Yes Plan: 07/25/2008 patient is hypotensive at the time of admission probably secondary to sepsis patient is on lisinopril, Coreg at home and we are going to hold her blood pressure medication for now. Started on normal saline at 100 cc/h. 07/26/2018 in the emergency room patient was hypotensive. The home blood pressure medications are on hold. The latest blood pressure is 141/62. we will resume her home medications. (6) Iron deficiency anemia Qualifiers: Iron deficiency anemia type: unspecified iron deficiency Qualified Code(s) : D50.9 - Iron deficiency anemia, unspecified Is this a current diagnosis for this admission?: Yes Plan: 07/25/2018 patient and family giving the history of iron deficiency anemia. As per the family hemoglobin is around 8. In the ER hemoglobin is 7.6. We are going to check CBC on regular basis if necessary we give blood transfusion. 07/26/2018 latest hemoglobin is 7.5 patient gave the consent for blood transfusion. We are going to transfuse 1 unit of PRBC. (7) CVA (cerebral vascular accident) Is this a current diagnosis for this admission?: Yes Plan: 07/25/2018. As per the patient and family she was admitted for CVA here in this hospital a few weeks ago transferred to higher level of care final findings are inconclusive. She walks with a cane and walker at home. Denies any headaches at this time. But complaining of chronic dizziness. She takes meclizine at home for chronic dizziness. Will resume meclizine during this admission. 07/26/2018 no complaints of headaches dizzy spells or change in neurological examination after the admission. We will continue the present management. (8) Depression Qualifiers: Major depression episode severity: unspecified Is this a current diagnosis for this admission?: Yes Plan: 07/25/2018 as per the patient , she thinks she was on Zoloft before but recently it was changed to Wellbutrin by the primary care physician patient does like does not like to take the Wellbutrin and stopped taking that medication. Patient is also on BuSpar we are planning to continue BuSpar during this admission. 07/26/2018 and is on Wellbutrin and BuSpar no complaints of depression today. (9) CHF (congestive heart failure) Qualifiers: Heart failure chronicity: unspecified Is this a current diagnosis for this admission?: Yes Plan: 07/25/2018 patient and family giving the history of congestive heart failure. Patient is not in fluid overload. We are going to arrange for the echocardiogram. 07/26/2018 it is not in fluid overload. We waiting for the echocardiogram report. Request for BNP. (10) Hypomagnesemia Is this a current diagnosis for this admission?: Yes Plan: 07/26/2018 magnesium level today is 1.2. She is going to get 2 g of IV magnesium. Repeat the magnesium levels tomorrow. - Time Time Spent with patient: 15-24 minutes Medications reviewed and adjusted accordingly: Yes Anticipated discharge: Home
[2018-07-26] MEDS ORDERED: (PENDING PHARMACY ID) (Buspirone Hcl [Buspar 5 Mg Tablet] 7.5 MG) PO SCH (10:00)
[2018-07-26] MEDS ORDERED: FENOFIBRATE NANOCRYSTALLIZED 145 MG TABLET PO SCH (10:00)
[2018-07-26] MEDS ORDERED: (PENDING PHARMACY ID) (Fenofibrate [Fenofibrate] 160 MG) PO SCH (10:00)
[2018-07-26] MEDS ORDERED: CLOPIDOGREL BISULFATE 75 MG TABLET PO SCH (10:00)
[2018-07-26] MEDS: BUSPIRONE HCL 10 MG TABLET PO SCH ×2 (10:23→22:24)
[2018-07-26] MEDS: NORMAL SALINE 1000 ML 1,000 ML IV PRN (10:23)
[2018-07-26] MEDS: MAGNESIUM SULFATE 1 GM/D5W 100 ML IV SCH ×2 (10:23→12:31)
[2018-07-26] MEDS: SITAGLIPTIN PHOSPHATE 50 MG TABLET PO SCH (10:25)
[2018-07-26] MEDS: FUROSEMIDE 20 MG TABLET PO SCH (10:25)
[2018-07-26] MEDS: FENOFIBRATE NANOCRYSTALLIZED 145 MG TABLET PO SCH (10:25)
[2018-07-26] MEDS: GLIPIZIDE 5 MG TABLET PO SCH ×2 (10:25→17:06)
[2018-07-26] MEDS: LISINOPRIL 5 MG TABLET PO SCH (10:25)
[2018-07-26] MEDS: FAMOTIDINE INJ/PF 20 MG/2 ML SDV IV SCH ×2 (10:26→22:27)
[2018-07-26] MEDS: ENOXAPARIN SODIUM INJ 40 MG/0.4 ML DISP.SYRIN SUBCUT SCH ×2 (10:26→10:36)
[2018-07-26] MEDS: CLOPIDOGREL BISULFATE 75 MG TABLET PO SCH (10:26)
[2018-07-26] MEDS: LORATADINE 10 MG TABLET PO SCH (10:26)
[2018-07-26] MEDS: CEFEPIME 2 GM/D5W RTU 2 GM/50 ML RTUPB IV SCH ×2 (11:26→22:24)
[2018-07-26] MEDS: LEVOFLOXACIN 500 MG/D5W RTU 500 MG/100 ML RTUPB IV SCH (14:12)
[2018-07-26] MEDS: ACETAMINOPHEN 325 MG TABLET PO PRN (14:22)
[2018-07-26] MEDS: LORAZEPAM 1 MG TABLET PO PRN (14:51)
[2018-07-26] MEDS: INSULIN REG, HUMAN 100 UNIT/ML 3 ML VIAL (PYX) SUBCUT PRN (14:51)
[2018-07-26] MEDS: MONTELUKAST SODIUM 10 MG TABLET PO SCH (17:06)
[2018-07-26 18:17] LABS: ABSOLUTE BASOPHILS # (AUTO) 0.1 10^3/uL (0.0-0.2); ABSOLUTE EOSINOPHILS # (AUTO) 0.1 10^3/uL (0.0-0.6); ABSOLUTE LYMPHOCYTES (AUTO) 0.9 10^3/uL (0.5-4.7); ABSOLUTE MONOCYTES (AUTO) 0.8 10^3/uL (0.1-1.4); ABSOLUTE NEUT (AUTO) 8.7 10^3/uL (1.7-8.2); BASOPHILS % (AUTO) 0.6 % (0-2); EOSINOPHILS % (AUTO) 0.9 % (0-6); HEMATOCRIT 27.3 % (36.0-47.0); HEMOGLOBIN 9.3 g/dL (12.0-15.5); LYMPHOCYTES % (AUTO) 8.3 % (13-45); MEAN CORPUSCULAR HEMOGLOBIN 29.5 pg (27.0-33.4); MEAN CORPUSCULAR HGB CONC 34.1 g/dL (32.0-36.0); MEAN CORPUSCULAR VOLUME 87 fl (80-97); MONOCYTES % (AUTO) 7.3 % (3-13); PLATELET COUNT 253 10^3/uL (150-450); RED BLOOD COUNT 3.15 10^6/uL (3.72-5.28); RED CELL DISTRIBUTION WIDTH 15.1 % (11.5-14.0); SEGMENTED NEUTROPHILS % (AUTO) 82.9 % (42-78); TOTAL CELLS COUNTED % (AUTO) 100 %; WHITE BLOOD COUNT 10.4 10^3/uL (4.0-10.5)
[2018-07-26] MEDS: ZOLPIDEM TARTRATE 5 MG TABLET PO SCH (22:24)
[2018-07-26] MEDS: INSULIN GLARGINE,HUM.REC.ANLOG 300 UNIT/3 ML INSULN.PEN SUBCUT SCH (22:32)
[2018-07-27 05:54] LABS: ABSOLUTE EOSINOPHILS # (AUTO) 0.1 10^3/uL (0.0-0.6); ABSOLUTE LYMPHOCYTES (AUTO) 1.1 10^3/uL (0.5-4.7); ABSOLUTE MONOCYTES (AUTO) 0.8 10^3/uL (0.1-1.4); ABSOLUTE NEUT (AUTO) 6.3 10^3/uL (1.7-8.2); BASOPHILS % (AUTO) 0.5 % (0-2); EOSINOPHILS % (AUTO) 1.4 % (0-6); HEMATOCRIT 23.4 % (36.0-47.0); HEMOGLOBIN 8.2 g/dL (12.0-15.5); LYMPHOCYTES % (AUTO) 12.8 % (13-45); MEAN CORPUSCULAR HEMOGLOBIN 29.6 pg (27.0-33.4); MEAN CORPUSCULAR HGB CONC 35.2 g/dL (32.0-36.0); MEAN CORPUSCULAR VOLUME 84 fl (80-97); MONOCYTES % (AUTO) 9.3 % (3-13); PLATELET COUNT 208 10^3/uL (150-450); RED BLOOD COUNT 2.78 10^6/uL (3.72-5.28); RED CELL DISTRIBUTION WIDTH 15.3 % (11.5-14.0); TOTAL CELLS COUNTED % (AUTO) 100 %; WHITE BLOOD COUNT 8.3 10^3/uL (4.0-10.5)
[2018-07-27 06:31] LABS: ALANINE AMINOTRANSFERASE 26 U/L (9-52); ALBUMIN 2.7 g/dL (3.5-5.0); ALKALINE PHOSPHATASE 50 U/L (38-126); ANION GAP 13 (5-19); ASPARTATE AMINO TRANSFERASE 31 U/L (14-36); BILIRUBIN,DIRECT 0.3 mg/dL (0.0-0.4); BILIRUBIN,TOTAL 0.4 mg/dL (0.2-1.3); BLOOD UREA NITROGEN 10 mg/dL (7-20); CALCIUM 8.8 mg/dL (8.4-10.2); CARBON DIOXIDE 23 mmol/L (22-30); CHLORIDE 105 mmol/L (98-107); GLUCOSE 67 mg/dL (75-110); SODIUM 140.6 mmol/L (137-145); TOTAL PROTEIN 6.1 g/dL (6.3-8.2)
[2018-07-27] MEDS: LORAZEPAM 1 MG TABLET PO PRN ×2 (06:44→23:24)
[2018-07-27] MEDS: CEFEPIME 2 GM/D5W RTU 2 GM/50 ML RTUPB IV SCH ×2 (10:01→21:22)
[2018-07-27] MEDS: LEVOFLOXACIN 500 MG/D5W RTU 500 MG/100 ML RTUPB IV SCH (10:01)
--- NOTE | 2018-07-27 10:01 | PDOC PROGRESS REPORT ---
Subjective Progress Note for:: 07/27/18 Subjective:: 07/26/2018 58-year-old female came to the emergency room with complaints of fevers and chills and in the emergency room found to have a potassium of 6.1. And she had a spike of fever of 103 last night. She is getting Tylenol as needed. The blood cultures came back positive for gram-negative rods. Patient states she is slightly better compared to yesterday. 07/27/2018 no acute events in the last 24 hours. Patient comfortably sleeping in the bed. She had a temperature of 99.0 today. Reason For Visit: SEPSIS Physical Exam Vital Signs: Temp Pulse Resp BP Pulse Ox 99.0 F 100 20 146/58 H 98 07/27/18 03:58 07/27/18 03:58 07/27/18 03:58 07/27/18 03:58 07/27/18 03:58 Intake & Output 07/26/18 07/27/18 07/28/18 06:59 06:59 06:59 Intake Total 1285 2250 Output Total 950 2050 Balance 335 200 Weight 69.6 kg 66.9 kg General appearance: PRESENT: no acute distress Head exam: PRESENT: atraumatic Eye exam: PRESENT: PERRLA Neck exam: ABSENT: carotid bruit, JVD, lymphadenopathy, thyromegaly Respiratory exam: PRESENT: clear to auscultation roderick. ABSENT: rales, rhonchi, wheezes Cardiovascular exam: PRESENT: tachycardia GI/Abdominal exam: PRESENT: normal bowel sounds, soft. ABSENT: distended, guarding, mass, organolmegaly, rebound, tenderness Neurological exam: PRESENT: alert, awake, oriented to person, oriented to place , oriented to time, oriented to situation, CN II-XII grossly intact. ABSENT: motor sensory deficit Psychiatric exam: PRESENT: appropriate affect, normal mood. ABSENT: homicidal ideation, suicidal ideation Results Laboratory Results: 07/27/18 05:03 07/27/18 05:03 07/26/18 07/26/18 07/26/18 18:10 18:10 22:15 WBC 10.4 RBC 3.15 L Hgb 9.3 L Hct 27.3 L MCV 87 MCH 29.5 MCHC 34.1 RDW 15.1 H Plt Count 253 Seg Neutrophils % 82.9 H Lymphocytes % 8.3 L Monocytes % 7.3 Eosinophils % 0.9 Basophils % 0.6 Absolute Neutrophils 8.7 H Absolute Lymphocytes 0.9 Absolute Monocytes 0.8 Absolute Eosinophils 0.1 Absolute Basophils 0.1 Sodium Potassium Chloride Carbon Dioxide Anion Gap BUN Creatinine Est GFR ( Amer) Est GFR (Non-Af Amer) Glucose Lactic Acid 3.4 H 1.3 Calcium Magnesium Total Bilirubin AST ALT Alkaline Phosphatase Total Protein Albumin 07/27/18 07/27/18 07/27/18 00:29 05:03 05:03 WBC 8.3 RBC 2.78 L Hgb 8.2 L Hct 23.4 L MCV 84 MCH 29.6 MCHC 35.2 RDW 15.3 H Plt Count 208 Seg Neutrophils % 76.0 Lymphocytes % 12.8 L Monocytes % 9.3 Eosinophils % 1.4 Basophils % 0.5 Absolute Neutrophils 6.3 Absolute Lymphocytes 1.1 Absolute Monocytes 0.8 Absolute Eosinophils 0.1 Absolute Basophils 0.0 Sodium 140.6 Potassium 4.0 Chloride 105 Carbon Dioxide 23 Anion Gap 13 BUN 10 Creatinine 0.63 Est GFR ( Amer) > 60 Est GFR (Non-Af Amer) > 60 Glucose 67 L Lactic Acid 0.9 Calcium 8.8 Magnesium 1.4 L Total Bilirubin 0.4 AST 31 ALT 26 Alkaline Phosphatase 50 Total Protein 6.1 L Albumin 2.7 L 07/25/18 07/25/18 07/25/18 14:53 14:53 20:50 Creatine Kinase 40 50 CK-MB (CK-2) 0.47 Troponin I 0.026 NT-Pro-B Natriuret Pep 07/25/18 07/26/18 07/26/18 20:50 03:22 03:22 Creatine Kinase 49 CK-MB (CK-2) 0.43 0.52 Troponin I 0.056 0.022 NT-Pro-B Natriuret Pep 07/26/18 03:22 Creatine Kinase CK-MB (CK-2) Troponin I NT-Pro-B Natriuret Pep 6650 H Impressions: Chest X-Ray 07/25/18 09:27 IMPRESSION: NO ACUTE RADIOGRAPHIC FINDING IN THE CHEST. Assessment & Plan - Diagnosis (1) Severe sepsis Is this a current diagnosis for this admission?: Yes Plan: 07/25/2018 came into the emergency room with fever chills for the last 1 week in association with the burning sensation during the urination associated with increased frequency patient is found to be hypotensive in the emergency room she was started on IV fluids she is still tachycardic at the time of examination and hypotensive at the time of examination. Latest blood pressures are 90/60. Calcium was 3.6 on admission repeat lactic acid is 1.2. In the emergency room blood cultures urine culture was sent started on IV Rocephin. I started her on Maxipime 2 g IV daily. Sepsis protocol was implemented. We will wait for the urine cultures blood cultures. Chest x-ray is normal. Patient was placed on oxygen 2 L nasal cannula. 07/26/2018 pt had spike in temperature of 103 last night. Started on diuretics cefepime yesterday. Cultures came back positive for gram-negative rods. Urine culture is pending. I am going to add levofloxacin 500 mg IV daily. Latest lactic acid level is 1.2. She is on IV fluids. On oxygen 2 L nasal cannula. Sepsis protocol was implemented. Chest x-ray was normal. 07/27/2018 she had a fever of 99 this morning. Microbiology called me to notify that urine culture blood culture is growing E. coli. And it is pansensitive. Patient currently on cefepime and Levaquin. Blood pressure today is 146/58. Pulse rate of 99. And pulse ox of 98% on room air. Sepsis is resolving. (2) Hyperkalemia Is this a current diagnosis for this admission?: Yes Plan: 07/25/2018. Patient has lab work was done as an outpatient on at PCP office patient was advised to come back for further lab investigations yesterday but the patient was sick to go and that she ended up in the ER here today in the emergency room potassium 6.1 patient was given lactulose calcium gluconate insulin and glucose in the emergency room. KG shows sinus tachycardia. 07/26/2018 in the ER potassium levels are 6.1 treated with cocktail latest potassium is 4.5. No EKG changes. Hyperkalemia resolved. 07/27/2018 patient was admitted with potassium level of 6.1. It was appropriately treated. His potassium is 4.0. Her kalemia is resolved. (3) UTI (urinary tract infection) Is this a current diagnosis for this admission?: Yes Plan: 07/25/2018 patient given the complaints of increased frequency, foul-smelling urination, burning sensation during the urination. Urine analysis shows leucocyte esterase is large. Patient was started on Maxipime 2 g IV daily. Wait for the urine culture reports. 07/26/2018 with complaint's of decreasing frequency of urination foul-smelling urine and burning sensation during the urination at the time of examination in the ER. Urine cultures are pending. She is on cefepime . started on levofloxacin 400 mg IV daily also. 07/27/2018. Culture is showing E. coli. Pansensitive. On cefepime/Levaquin. (4) Diabetes Qualifiers: Diabetes mellitus type: type 2 Is this a current diagnosis for this admission?: Yes Plan: 07/25/2018 patient has history of type 2 diabetes. Patient's latest blood sugars are 254. And is on Januvia 100 mg daily, glargine insulin 10 units at bedtime, glipizide 10 mg p.o. daily. 100 mg daily at home, glargine insulin 10 units at bedtime, glipizide 10 mg p.o. daily at home. We will place her on insulin sliding scale and also resume her home medications. I am going to check her hemoglobin A1c. Dietary consult will be requested. 07/26/2018 hemoglobin A1c 6.4. His blood sugar is 214. Patient is on insulin sliding scale, Januvia 100 mg p.o. daily, glipizide 10 mg p.o. daily, glargine insulin 10 units at bedtime, we will continue the present management. 07/27/2018 latest blood sugars are 67. She denies any insulin sliding scale and W planning to continue her home medications here. (5) Hypotension Is this a current diagnosis for this admission?: Yes Plan: 07/25/2008 patient is hypotensive at the time of admission probably secondary to sepsis patient is on lisinopril, Coreg at home and we are going to hold her blood pressure medication for now. Started on normal saline at 100 cc/h. 07/26/2018 in the emergency room patient was hypotensive. The home blood pressure medications are on hold. The latest blood pressure is 141/62. we will resume her home medications. 07/27/2018 hypotension was resolved and going to discontinue her IV fluids. (6) Iron deficiency anemia Qualifiers: Iron deficiency anemia type: unspecified iron deficiency Qualified Code(s) : D50.9 - Iron deficiency anemia, unspecified Is this a current diagnosis for this admission?: Yes Plan: 07/25/2018 patient and family giving the history of iron deficiency anemia. As per the family hemoglobin is around 8. In the ER hemoglobin is 7.6. We are going to check CBC on regular basis if necessary we give blood transfusion. 07/26/2018 latest hemoglobin is 7.5 patient gave the consent for blood transfusion. We are going to transfuse 1 unit of PRBC. 07/27/2018 she had 1 unit of PRBC yesterday. Latest hemoglobin is 8.2. No signs of any obvious bleeding. (7) CVA (cerebral vascular accident) Is this a current diagnosis for this admission?: Yes Plan: 07/25/2018. As per the patient and family she was admitted for CVA here in this hospital a few weeks ago transferred to higher level of care final findings are inconclusive. She walks with a cane and walker at home. Denies any headaches at this time. But complaining of chronic dizziness. She takes meclizine at home for chronic dizziness. Will resume meclizine during this admission. 07/26/2018 no complaints of headaches dizzy spells or change in neurological examination after the admission. We will continue the present management. 07/27/2018 patient is alert and oriented communicating well. Neurological examination is normal. (8) Depression Qualifiers: Major depression episode severity: unspecified Is this a current diagnosis for this admission?: Yes Plan: 07/25/2018 as per the patient , she thinks she was on Zoloft before but recently it was changed to Wellbutrin by the primary care physician patient does like does not like to take the Wellbutrin and stopped taking that medication. Patient is also on BuSpar we are planning to continue BuSpar during this admission. 07/26/2018 and is on Wellbutrin and BuSpar no complaints of depression today. 07/27/2018 patient denies any anxiety or depression today. She is on Wellbutrin/ BuSpar. (9) CHF (congestive heart failure) Qualifiers: Heart failure chronicity: unspecified Is this a current diagnosis for this admission?: Yes Plan: 07/25/2018 patient and family giving the history of congestive heart failure. Patient is not in fluid overload. We are going to arrange for the echocardiogram. 07/26/2018 it is not in fluid overload. We waiting for the echocardiogram report. Request for BNP. Requested for echocardiogram. Examination patient is not in fluid overload. Chest was clear. No pedal edema. (10) Hypomagnesemia Is this a current diagnosis for this admission?: Yes Plan: 07/26/2018 magnesium level today is 1.2. She is going to get 2 g of IV magnesium. Repeat the magnesium levels tomorrow. L1 2017 magnesium is 1.4 today patient is going to receive 2 g of IV magnesium. - Time Time Spent with patient: 15-24 minutes Medications reviewed and adjusted accordingly: Yes Anticipated discharge: Home
[2018-07-27] MEDS: LORATADINE 10 MG TABLET PO SCH (10:02)
[2018-07-27] MEDS: FENOFIBRATE NANOCRYSTALLIZED 145 MG TABLET PO SCH (10:02)
[2018-07-27] MEDS: LISINOPRIL 5 MG TABLET PO SCH (10:02)
[2018-07-27] MEDS: BUSPIRONE HCL 10 MG TABLET PO SCH ×2 (10:02→21:18)
[2018-07-27] MEDS: SITAGLIPTIN PHOSPHATE 50 MG TABLET PO SCH (10:02)
[2018-07-27] MEDS: CLOPIDOGREL BISULFATE 75 MG TABLET PO SCH (10:02)
[2018-07-27] MEDS: FUROSEMIDE 20 MG TABLET PO SCH (10:02)
[2018-07-27] MEDS: GLIPIZIDE 5 MG TABLET PO SCH ×2 (10:03→17:25)
[2018-07-27] MEDS: ENOXAPARIN SODIUM INJ 40 MG/0.4 ML DISP.SYRIN SUBCUT SCH (10:03)
[2018-07-27] MEDS: MAGNESIUM SULFATE/D5W 1 GM/100 ML RTUPB IV SCH ×2 (13:08→15:04)
[2018-07-27] MEDS: FAMOTIDINE 20 MG TABLET PO SCH ×2 (13:08→21:18)
[2018-07-27] MEDS: MONTELUKAST SODIUM 10 MG TABLET PO SCH (17:45)
[2018-07-27] MEDS: ZOLPIDEM TARTRATE 5 MG TABLET PO SCH (21:17)
[2018-07-27] MEDS: INSULIN GLARGINE,HUM.REC.ANLOG 300 UNIT/3 ML INSULN.PEN SUBCUT SCH (21:28)
[2018-07-27] MEDS: ACETAMINOPHEN 325 MG TABLET PO PRN (23:24)
[2018-07-28 05:16] LABS: ABSOLUTE EOSINOPHILS # (AUTO) 0.2 10^3/uL (0.0-0.6); ABSOLUTE LYMPHOCYTES (AUTO) 0.9 10^3/uL (0.5-4.7); ABSOLUTE MONOCYTES (AUTO) 0.7 10^3/uL (0.1-1.4); ABSOLUTE NEUT (AUTO) 4.3 10^3/uL (1.7-8.2); BASOPHILS % (AUTO) 0.7 % (0-2); EOSINOPHILS % (AUTO) 2.5 % (0-6); HEMOGLOBIN 9.6 g/dL (12.0-15.5); LYMPHOCYTES % (AUTO) 14.9 % (13-45); MEAN CORPUSCULAR HEMOGLOBIN 28.7 pg (27.0-33.4); MEAN CORPUSCULAR HGB CONC 34.1 g/dL (32.0-36.0); MEAN CORPUSCULAR VOLUME 84 fl (80-97); PLATELET COUNT 269 10^3/uL (150-450); RED BLOOD COUNT 3.33 10^6/uL (3.72-5.28); RED CELL DISTRIBUTION WIDTH 15.3 % (11.5-14.0); SEGMENTED NEUTROPHILS % (AUTO) 70.9 % (42-78); TOTAL CELLS COUNTED % (AUTO) 100 %; WHITE BLOOD COUNT 6.1 10^3/uL (4.0-10.5)
[2018-07-28] MEDS: GLIPIZIDE 5 MG TABLET PO SCH ×2 (08:05→16:56)
[2018-07-28] MEDS: ACETAMINOPHEN 325 MG TABLET PO PRN (08:05)
[2018-07-28] MEDS ORDERED: ERGOCALCIFEROL (VITAMIN D2) 50000 UNIT (1.25 MG) CAPSULE PO SCH (10:00)
[2018-07-28] MEDS: LORATADINE 10 MG TABLET PO SCH (11:03)
[2018-07-28] MEDS: LISINOPRIL 5 MG TABLET PO SCH (11:03)
[2018-07-28] MEDS: FUROSEMIDE 20 MG TABLET PO SCH (11:03)
[2018-07-28] MEDS: FAMOTIDINE 20 MG TABLET PO SCH ×2 (11:03→22:07)
[2018-07-28] MEDS: CLOPIDOGREL BISULFATE 75 MG TABLET PO SCH (11:03)
[2018-07-28] MEDS: BUSPIRONE HCL 10 MG TABLET PO SCH ×2 (11:03→22:07)
[2018-07-28] MEDS: LEVOFLOXACIN 500 MG/D5W RTU 500 MG/100 ML RTUPB IV SCH (11:04)
[2018-07-28] MEDS: ENOXAPARIN SODIUM INJ 40 MG/0.4 ML DISP.SYRIN SUBCUT SCH (11:04)
[2018-07-28] MEDS: CEFEPIME 2 GM/D5W RTU 2 GM/50 ML RTUPB IV SCH (11:16)
[2018-07-28] MEDS: FENOFIBRATE NANOCRYSTALLIZED 145 MG TABLET PO SCH (11:16)
[2018-07-28] MEDS: SITAGLIPTIN PHOSPHATE 50 MG TABLET PO SCH (11:16)
--- NOTE | 2018-07-28 13:11 | PDOC PROGRESS REPORT ---
Subjective Progress Note for:: 07/28/18 Subjective:: 07/26/2018 58-year-old female came to the emergency room with complaints of fevers and chills and in the emergency room found to have a potassium of 6.1. And she had a spike of fever of 103 last night. She is getting Tylenol as needed. The blood cultures came back positive for gram-negative rods. Patient states she is slightly better compared to yesterday. 07/27/2018 no acute events in the last 24 hours. Patient comfortably sleeping in the bed. She had a temperature of 99.0 today. 07/28/2018 no acute events in the last 24 hours. T-max is 99. pt states she is feeling better. Communicating very well. Reason For Visit: SEPSIS Physical Exam Vital Signs: Temp Pulse Resp BP Pulse Ox 99.0 F 101 H 17 119/70 100 07/28/18 08:00 07/28/18 08:00 07/28/18 08:00 07/28/18 08:00 07/28/18 08:00 Intake & Output 07/27/18 07/28/18 07/29/18 06:59 06:59 06:59 Intake Total 2250 887 100 Output Total 2050 2500 Balance 200 -1613 100 Weight 66.9 kg 69 kg General appearance: PRESENT: no acute distress Head exam: PRESENT: atraumatic Eye exam: PRESENT: PERRLA Mouth exam: PRESENT: moist Neck exam: ABSENT: carotid bruit, JVD, lymphadenopathy, thyromegaly Respiratory exam: PRESENT: clear to auscultation roderick. ABSENT: rales, rhonchi, wheezes Cardiovascular exam: PRESENT: RRR. ABSENT: diastolic murmur, rubs, systolic murmur GI/Abdominal exam: PRESENT: normal bowel sounds, soft. ABSENT: distended, guarding, mass, organolmegaly, rebound, tenderness Neurological exam: PRESENT: alert, awake, oriented to person, oriented to place , oriented to time, oriented to situation, CN II-XII grossly intact. ABSENT: motor sensory deficit Psychiatric exam: PRESENT: appropriate affect, normal mood. ABSENT: homicidal ideation, suicidal ideation Results Laboratory Results: 07/28/18 04:31 07/27/18 05:03 07/28/18 07/28/18 04:31 04:31 WBC 6.1 RBC 3.33 L Hgb 9.6 L Hct 28.0 L MCV 84 MCH 28.7 MCHC 34.1 RDW 15.3 H Plt Count 269 Seg Neutrophils % 70.9 Lymphocytes % 14.9 Monocytes % 11.0 Eosinophils % 2.5 Basophils % 0.7 Absolute Neutrophils 4.3 Absolute Lymphocytes 0.9 Absolute Monocytes 0.7 Absolute Eosinophils 0.2 Absolute Basophils 0.0 Magnesium 1.6 07/25/18 07/25/18 07/25/18 14:53 14:53 20:50 Creatine Kinase 40 50 CK-MB (CK-2) 0.47 Troponin I 0.026 NT-Pro-B Natriuret Pep 07/25/18 07/26/18 07/26/18 20:50 03:22 03:22 Creatine Kinase 49 CK-MB (CK-2) 0.43 0.52 Troponin I 0.056 0.022 NT-Pro-B Natriuret Pep 07/26/18 07/28/18 03:22 04:31 Creatine Kinase CK-MB (CK-2) Troponin I NT-Pro-B Natriuret Pep 6650 H 2600 H Impressions: Chest X-Ray 07/25/18 09:27 IMPRESSION: NO ACUTE RADIOGRAPHIC FINDING IN THE CHEST. Assessment & Plan - Diagnosis (1) Severe sepsis Is this a current diagnosis for this admission?: Yes Plan: 07/25/2018 came into the emergency room with fever chills for the last 1 week in association with the burning sensation during the urination associated with increased frequency patient is found to be hypotensive in the emergency room she was started on IV fluids she is still tachycardic at the time of examination and hypotensive at the time of examination. Latest blood pressures are 90/60. Calcium was 3.6 on admission repeat lactic acid is 1.2. In the emergency room blood cultures urine culture was sent started on IV Rocephin. I started her on Maxipime 2 g IV daily. Sepsis protocol was implemented. We will wait for the urine cultures blood cultures. Chest x-ray is normal. Patient was placed on oxygen 2 L nasal cannula. 07/26/2018 pt had spike in temperature of 103 last night. Started on diuretics cefepime yesterday. Cultures came back positive for gram-negative rods. Urine culture is pending. I am going to add levofloxacin 500 mg IV daily. Latest lactic acid level is 1.2. She is on IV fluids. On oxygen 2 L nasal cannula. Sepsis protocol was implemented. Chest x-ray was normal. 07/27/2018 she had a fever of 99 this morning. Microbiology called me to notify that urine culture blood culture is growing E. coli. And it is pansensitive. Patient currently on cefepime and Levaquin. Blood pressure today is 146/58. Pulse rate of 99. And pulse ox of 98% on room air. Sepsis is resolving. 07/28/2018 patient had a fever of 99 F today. Blood cultures urine culture showing E. coli. She is on cefepime and Levaquin. I will stop cefepime today. Blood pressure today is 119/70. Pulse ox is 100%. Sepsis is resolving.. If everything is okay probably I am going to discharge her tomorrow on p.o. antibiotics. (2) Hyperkalemia Is this a current diagnosis for this admission?: Yes Plan: 07/25/2018. Patient has lab work was done as an outpatient on at PCP office patient was advised to come back for further lab investigations yesterday but the patient was sick to go and that she ended up in the ER here today in the emergency room potassium 6.1 patient was given lactulose calcium gluconate insulin and glucose in the emergency room. KG shows sinus tachycardia. 07/26/2018 in the ER potassium levels are 6.1 treated with cocktail latest potassium is 4.5. No EKG changes. Hyperkalemia resolved. 07/27/2018 patient was admitted with potassium level of 6.1. It was appropriately treated. His potassium is 4.0. Hyper kalemia is resolved. 07/28/2018 latest potassium is 4.0. Hyperkalemia resolved. (3) UTI (urinary tract infection) Is this a current diagnosis for this admission?: Yes Plan: 07/25/2018 patient given the complaints of increased frequency, foul-smelling urination, burning sensation during the urination. Urine analysis shows leucocyte esterase is large. Patient was started on Maxipime 2 g IV daily. Wait for the urine culture reports. 07/26/2018 with complaint's of decreasing frequency of urination foul-smelling urine and burning sensation during the urination at the time of examination in the ER. Urine cultures are pending. She is on cefepime . started on levofloxacin 400 mg IV daily also. 07/27/2018. Culture is showing E. coli. Pansensitive. On cefepime/Levaquin. 07/28/2018 urine culture with E. coli we will continue IV Levaquin and stop cefepime. (4) Diabetes Qualifiers: Diabetes mellitus type: type 2 Is this a current diagnosis for this admission?: Yes Plan: 07/25/2018 patient has history of type 2 diabetes. Patient's latest blood sugars are 254. And is on Januvia 100 mg daily, glargine insulin 10 units at bedtime, glipizide 10 mg p.o. daily. 100 mg daily at home, glargine insulin 10 units at bedtime, glipizide 10 mg p.o. daily at home. We will place her on insulin sliding scale and also resume her home medications. I am going to check her hemoglobin A1c. Dietary consult will be requested. 07/26/2018 hemoglobin A1c 6.4. His blood sugar is 214. Patient is on insulin sliding scale, Januvia 100 mg p.o. daily, glipizide 10 mg p.o. daily, glargine insulin 10 units at bedtime, we will continue the present management. 07/27/2018 latest blood sugars are 67. She denies any insulin sliding scale and W planning to continue her home medications here. 07/28/2018 latest blood sugar is 163. Patient is on insulin sliding scale, Januvia 100 mg daily, glipizide 10 mg p.o. daily, glargine 10 units at bedtime. We will continue the present management. (5) Hypotension Is this a current diagnosis for this admission?: Yes Plan: 07/25/2008 patient is hypotensive at the time of admission probably secondary to sepsis patient is on lisinopril, Coreg at home and we are going to hold her blood pressure medication for now. Started on normal saline at 100 cc/h. 07/26/2018 in the emergency room patient was hypotensive. The home blood pressure medications are on hold. The latest blood pressure is 141/62. we will resume her home medications. 07/27/2018 hypotension was resolved and going to discontinue her IV fluids. 07/28/2018 blood pressure is 119/70 after IV fluids hypotension resolved. (6) Iron deficiency anemia Qualifiers: Iron deficiency anemia type: unspecified iron deficiency Qualified Code(s) : D50.9 - Iron deficiency anemia, unspecified Is this a current diagnosis for this admission?: Yes Plan: 07/25/2018 patient and family giving the history of iron deficiency anemia. As per the family hemoglobin is around 8. In the ER hemoglobin is 7.6. We are going to check CBC on regular basis if necessary we give blood transfusion. 07/26/2018 latest hemoglobin is 7.5 patient gave the consent for blood transfusion. We are going to transfuse 1 unit of PRBC. 07/27/2018 she had 1 unit of PRBC yesterday. Latest hemoglobin is 8.2. No signs of any obvious bleeding. 07/28/2018 latest hemoglobin is 9.6. She got 1 unit of blood transfusion 2 days ago. (7) CVA (cerebral vascular accident) Is this a current diagnosis for this admission?: Yes Plan: 07/25/2018. As per the patient and family she was admitted for CVA here in this hospital a few weeks ago transferred to higher level of care final findings are inconclusive. She walks with a cane and walker at home. Denies any headaches at this time. But complaining of chronic dizziness. She takes meclizine at home for chronic dizziness. Will resume meclizine during this admission. 07/26/2018 no complaints of headaches dizzy spells or change in neurological examination after the admission. We will continue the present management. 07/27/2018 patient is alert and oriented communicating well. Neurological examination is normal. 07/28/2018 history of CVA but patient is alert and oriented communicating well no focal neurological deficits noticed on examination. (8) Depression Qualifiers: Major depression episode severity: unspecified Is this a current diagnosis for this admission?: Yes Plan: 07/25/2018 as per the patient , she thinks she was on Zoloft before but recently it was changed to Wellbutrin by the primary care physician patient does like does not like to take the Wellbutrin and stopped taking that medication. Patient is also on BuSpar we are planning to continue BuSpar during this admission. 07/26/2018 and is on Wellbutrin and BuSpar no complaints of depression today. 07/27/2018 patient denies any anxiety or depression today. She is on Wellbutrin/ BuSpar. 07/28/2018 complains of anxiety or depression today. Patient is on Wellbutrin/ BuSpar. (9) CHF (congestive heart failure) Qualifiers: Heart failure chronicity: unspecified Is this a current diagnosis for this admission?: Yes Plan: 07/25/2018 patient and family giving the history of congestive heart failure. Patient is not in fluid overload. We are going to arrange for the echocardiogram. 07/26/2018 it is not in fluid overload. We waiting for the echocardiogram report. Request for BNP. Requested for echocardiogram. Examination patient is not in fluid overload. Chest was clear. No pedal edema. 07/28/2018 and is given the history of congestive heart failure. No evidence of fluid overload on examination. Echocardiogram is pending. BNP is 2600. (10) Hypomagnesemia Is this a current diagnosis for this admission?: Yes Plan: 07/26/2018 magnesium level today is 1.2. She is going to get 2 g of IV magnesium. Repeat the magnesium levels tomorrow. 07/27/2018 magnesium is 1.4 today patient is going to receive 2 g of IV magnesium. 07/28/2018 patient's magnesium levels are low, we will recheck. magnesium tomorrow. - Time Time Spent with patient: 15-24 minutes Medications reviewed and adjusted accordingly: Yes Anticipated discharge: Home
[2018-07-28] MEDS: CYCLOBENZAPRINE HCL 10 MG TABLET PO SCH ×2 (16:56→22:07)
[2018-07-28] MEDS: INSULIN REG, HUMAN 100 UNIT/ML 3 ML VIAL (PYX) SUBCUT PRN (17:58)
[2018-07-28] MEDS: MONTELUKAST SODIUM 10 MG TABLET PO SCH (17:58)
[2018-07-28] MEDS: ONDANSETRON HCL INJ/PF 4 MG/2 ML SDV IV PRN (21:55)
[2018-07-28] MEDS ORDERED: CYCLOBENZAPRINE HCL 10 MG TABLET PO SCH ×2 (22:00)
[2018-07-28] MEDS: LORAZEPAM 1 MG TABLET PO PRN (22:07)
[2018-07-28] MEDS: ZOLPIDEM TARTRATE 5 MG TABLET PO SCH (22:07)
[2018-07-28] MEDS: INSULIN GLARGINE,HUM.REC.ANLOG 300 UNIT/3 ML INSULN.PEN SUBCUT SCH (22:09)
[2018-07-29] MEDS: ACETAMINOPHEN 325 MG TABLET PO PRN (01:50)
[2018-07-29] MEDS: GABAPENTIN 300 MG CAPSULE PO PRN ×2 (01:51→10:11)
[2018-07-29 05:54] LABS: HEMATOCRIT 27.1 % (36.0-47.0); HEMOGLOBIN 9.2 g/dL (12.0-15.5); MEAN CORPUSCULAR HEMOGLOBIN 28.6 pg (27.0-33.4); MEAN CORPUSCULAR HGB CONC 33.9 g/dL (32.0-36.0); MEAN CORPUSCULAR VOLUME 84 fl (80-97); PLATELET COUNT 286 10^3/uL (150-450); RED BLOOD COUNT 3.22 10^6/uL (3.72-5.28); RED CELL DISTRIBUTION WIDTH 15.3 % (11.5-14.0); WHITE BLOOD COUNT 6.5 10^3/uL (4.0-10.5)
[2018-07-29 06:02] LABS: ALANINE AMINOTRANSFERASE 16 U/L (9-52); ALBUMIN 3.4 g/dL (3.5-5.0); ALKALINE PHOSPHATASE 57 U/L (38-126); ANION GAP 14 (5-19); ASPARTATE AMINO TRANSFERASE 29 U/L (14-36); BILIRUBIN,DIRECT 0.4 mg/dL (0.0-0.4); BILIRUBIN,TOTAL 0.8 mg/dL (0.2-1.3); BLOOD UREA NITROGEN 16 mg/dL (7-20); CALCIUM 9.3 mg/dL (8.4-10.2); CARBON DIOXIDE 27 mmol/L (22-30); CHLORIDE 99 mmol/L (98-107); GLUCOSE 177 mg/dL (75-110); SODIUM 139.6 mmol/L (137-145); TOTAL PROTEIN 7.6 g/dL (6.3-8.2)
[2018-07-29 06:11] LABS: ABSOLUTE MONOCYTES # (MANUAL) 0.8 10^3/uL (0.1-1.4); ABSOLUTE NEUTROPHILS# (MANUAL) 4.6 10^3/uL (1.7-8.2); BASOPHILS % (MANUAL) 0 % (0-2); EOSINOPHILS % (MANUAL) 3 % (0-6); LYMPHOCYTES % (MANUAL) 15 % (13-45); MONOCYTES % (MANUAL) 12 % (3-13); SEGMENTED NEUTROPHILS % (MAN) 70 % (42-78); TOTAL CELLS COUNTED 100
[2018-07-29 06:14] LABS: HELMET CELLS SLIGHT; OVALOCYTES 1+; PLATELET COMMENT ADEQUATE; POIKILOCYTOSIS 1+; TEAR DROP CELLS 1+; TOXIC VACUOLATION PRESENT
[2018-07-29] MEDS: CYCLOBENZAPRINE HCL 10 MG TABLET PO SCH (06:54)
[2018-07-29] MEDS ORDERED: ONDANSETRON HCL INJ/PF 4 MG/2 ML SDV IV PRN (08:00)
[2018-07-29] MEDS: FUROSEMIDE 20 MG TABLET PO SCH ×2 (09:45→10:05)
[2018-07-29] MEDS: LEVOFLOXACIN 500 MG/D5W RTU 500 MG/100 ML RTUPB IV SCH (09:53)
[2018-07-29] MEDS: FENOFIBRATE NANOCRYSTALLIZED 145 MG TABLET PO SCH (10:00)
[2018-07-29] MEDS: SITAGLIPTIN PHOSPHATE 50 MG TABLET PO SCH (10:00)
[2018-07-29] MEDS: GLIPIZIDE 5 MG TABLET PO SCH (10:00)
[2018-07-29] MEDS: CLOPIDOGREL BISULFATE 75 MG TABLET PO SCH (10:01)
[2018-07-29] MEDS: FAMOTIDINE 20 MG TABLET PO SCH (10:01)
[2018-07-29] MEDS: BUSPIRONE HCL 10 MG TABLET PO SCH (10:01)
[2018-07-29] MEDS: LISINOPRIL 5 MG TABLET PO SCH (10:01)
[2018-07-29] MEDS: LORATADINE 10 MG TABLET PO SCH (10:01)
[2018-07-29] MEDS: ENOXAPARIN SODIUM INJ 40 MG/0.4 ML DISP.SYRIN SUBCUT SCH (10:02)
[2018-07-29] MEDS: LORAZEPAM 1 MG TABLET PO PRN (10:11)
[2018-07-29] MEDS: INSULIN REG, HUMAN 100 UNIT/ML 3 ML VIAL (PYX) SUBCUT PRN (12:12)
[2018-07-29 12:56] VITALS: BP 124/52
--- NOTE | 2018-07-29 15:24 | PDOC DISCHARGE SUMMARY ---
General - Admit/Disc Date/PCP Admission Date/Primary Care Provider: 07/25/18 14:14 Discharge Date: 07/29/18 - Discharge Diagnosis (1) Severe sepsis Is this a current diagnosis for this admission?: Yes Summary: 07/25/2018 came into the emergency room with fever chills for the last 1 week in association with the burning sensation during the urination associated with increased frequency patient is found to be hypotensive in the emergency room she was started on IV fluids she is still tachycardic at the time of examination and hypotensive at the time of examination. Latest blood pressures are 90/60. lactic acid 3.6 on admission. repeat lactic acid is 1.2. In the emergency room blood cultures urine culture was sent started on IV Rocephin. I started her on Maxipime 2 g IV daily. Sepsis protocol was implemented. We will wait for the urine cultures blood cultures. Chest x-ray is normal. Patient was placed on oxygen 2 L nasal cannula. 07/26/2018 pt had spike in temperature of 103 last night. Started on diuretics cefepime yesterday. Cultures came back positive for gram-negative rods. Urine culture is pending. I am going to add levofloxacin 500 mg IV daily. Latest lactic acid level is 1.2. She is on IV fluids. On oxygen 2 L nasal cannula. Sepsis protocol was implemented. Chest x-ray was normal. 07/27/2018 she had a fever of 99 this morning. Microbiology called me to notify that urine culture blood culture is growing E. coli. And it is pansensitive. Patient currently on cefepime and Levaquin. Blood pressure today is 146/58. Pulse rate of 99. And pulse ox of 98% on room air. Sepsis is resolving. 07/28/2018 patient had a fever of 99 F today. Blood cultures urine culture showing E. coli. She is on cefepime and Levaquin. I will stop cefepime today. Blood pressure today is 119/70. Pulse ox is 100%. Sepsis is resolving.. If everything is okay probably I am going to discharge her tomorrow on p.o. antibiotics. 07/29/2018 this 58-year-old female came to the emergency room with complaints of fever and chills of 1 week duration in association with burning urination and increased frequency of urination. In the emergency room she was hypotensive requiring IV fluids. At the time of exam examination she was hypotensive and tachycardic. The blood pressure in the ER is 90/60. Lactic acid is on admission is 3.6. Was admitted with sepsis protocol. States not complicated. Initially she was started on cefepime. Later on levofloxacin 500 mg IV added. Blood cultures urine cultures came back positive for E. coli. E Coli sensitivity to levofloxacin and to sensitive to levofloxacin. Patient is afebrile in the last 24 hours. She is going to go home on levofloxacin 500 mg p.o. daily for 5 days. Hypotension resolved during the hospital stay. (2) Hyperkalemia Is this a current diagnosis for this admission?: Yes Summary: 07/25/2018. Patient has lab work was done as an outpatient on at PCP office patient was advised to come back for further lab investigations yesterday but the patient was sick to go and that she ended up in the ER here today in the emergency room potassium 6.1 patient was given lactulose calcium gluconate insulin and glucose in the emergency room. KG shows sinus tachycardia. 07/26/2018 in the ER potassium levels are 6.1 treated with cocktail latest potassium is 4.5. No EKG changes. Hyperkalemia resolved. 07/27/2018 patient was admitted with potassium level of 6.1. It was appropriately treated. His potassium is 4.0. Hyper kalemia is resolved. 07/28/2018 latest potassium is 4.0. Hyperkalemia resolved. 07/29/2018 at the time of admission potassium level 6.1. She was given Kayexalate in the ER along with insulin and dextrose. Follow potassium levels are within normal limits. Today's potassium is 4.0. She was advised about low potassium diet. (3) UTI (urinary tract infection) Is this a current diagnosis for this admission?: Yes Summary: 07/25/2018 patient given the complaints of increased frequency, foul-smelling urination, burning sensation during the urination. Urine analysis shows leucocyte esterase is large. Patient was started on Maxipime 2 g IV daily. Wait for the urine culture reports. 07/26/2018 with complaint's of decreasing frequency of urination foul-smelling urine and burning sensation during the urination at the time of examination in the ER. Urine cultures are pending. She is on cefepime . started on levofloxacin 400 mg IV daily also. 07/27/2018. Culture is showing E. coli. Pansensitive. On cefepime/Levaquin. 07/28/2018 urine culture with E. coli we will continue IV Levaquin and stop cefepime. 07/29/2018 patient came in with sepsis and UTI. Urine culture showing E. coli. Sensitivity to levofloxacin. She is going to go home on levofloxacin 500 mg p.o. daily for 5 days. And received total of 4 days of IV antibiotic therapy. (4) Diabetes Is this a current diagnosis for this admission?: Yes Summary: 07/25/2018 patient has history of type 2 diabetes. Patient's latest blood sugars are 254. And is on Januvia 100 mg daily, glargine insulin 10 units at bedtime, glipizide 10 mg p.o. daily. 100 mg daily at home, glargine insulin 10 units at bedtime, glipizide 10 mg p.o. daily at home. We will place her on insulin sliding scale and also resume her home medications. I am going to check her hemoglobin A1c. Dietary consult will be requested. 07/26/2018 hemoglobin A1c 6.4. His blood sugar is 214. Patient is on insulin sliding scale, Januvia 100 mg p.o. daily, glipizide 10 mg p.o. daily, glargine insulin 10 units at bedtime, we will continue the present management. 07/27/2018 latest blood sugars are 67. She denies any insulin sliding scale and W planning to continue her home medications here. 07/28/2018 latest blood sugar is 163. Patient is on insulin sliding scale, Januvia 100 mg daily, glipizide 10 mg p.o. daily, glargine 10 units at bedtime. We will continue the present management. 07/29/2018 test blood sugars is at 170. Patient is on insulin sliding scale, Januvia 100 mg daily glipizide 10 mg twice daily glargine 10 units at bedtime. These are her home medications. Once she discharged advised her to continue the present management. (5) Hypotension Is this a current diagnosis for this admission?: Yes Summary: 07/25/2008 patient is hypotensive at the time of admission probably secondary to sepsis patient is on lisinopril, Coreg at home and we are going to hold her blood pressure medication for now. Started on normal saline at 100 cc/h. 07/26/2018 in the emergency room patient was hypotensive. The home blood pressure medications are on hold. The latest blood pressure is 141/62. we will resume her home medications. 07/27/2018 hypotension was resolved and going to discontinue her IV fluids. 07/28/2018 blood pressure is 119/70 after IV fluids hypotension resolved. 07/29/2018 patient is hypotensive at the time of admission secondary to sepsis. Today's blood pressure is 106/51. Pressures are stable toward the hospital course. Patient is on lisinopril and Coreg at home. Advised to continue the medications at home. (6) Iron deficiency anemia Is this a current diagnosis for this admission?: Yes Summary: 07/25/2018 patient and family giving the history of iron deficiency anemia. As per the family hemoglobin is around 8. In the ER hemoglobin is 7.6. We are going to check CBC on regular basis if necessary we give blood transfusion. 07/26/2018 latest hemoglobin is 7.5 patient gave the consent for blood transfusion. We are going to transfuse 1 unit of PRBC. 07/27/2018 she had 1 unit of PRBC yesterday. Latest hemoglobin is 8.2. No signs of any obvious bleeding. 07/28/2018 latest hemoglobin is 9.6. She got 1 unit of blood transfusion 2 days ago. 07/29/2018 patient has a history of iron deficiency anemia. Hemoglobin dropped to 7.5 on 07/26/2018 status post 1 unit of blood transfusion was given on the same day. Today's hemoglobin is 9.2. (7) CVA (cerebral vascular accident) Is this a current diagnosis for this admission?: Yes Summary: 07/25/2018. As per the patient and family she was admitted for CVA here in this hospital a few weeks ago transferred to higher level of care final findings are inconclusive. She walks with a cane and walker at home. Denies any headaches at this time. But complaining of chronic dizziness. She takes meclizine at home for chronic dizziness. Will resume meclizine during this admission. 07/26/2018 no complaints of headaches dizzy spells or change in neurological examination after the admission. We will continue the present management. 07/27/2018 patient is alert and oriented communicating well. Neurological examination is normal. 07/28/2018 history of CVA but patient is alert and oriented communicating well no focal neurological deficits noticed on examination. 07/29/2018 she has history of CVA. She walks with a cane/walker at home. No change in the mental status no change in the neurological status after the admission. (8) Depression Is this a current diagnosis for this admission?: Yes Summary: 07/25/2018 as per the patient , she thinks she was on Zoloft before but recently it was changed to Wellbutrin by the primary care physician patient does like does not like to take the Wellbutrin and stopped taking that medication. Patient is also on BuSpar we are planning to continue BuSpar during this admission. 07/26/2018 and is on Wellbutrin and BuSpar no complaints of depression today. 07/27/2018 patient denies any anxiety or depression today. She is on Wellbutrin/ BuSpar. 07/28/2018 complains of anxiety or depression today. Patient is on Wellbutrin/ BuSpar. 07/29/2018 and is given the history of anxiety/depression. She is on Wellbutrin and BuSpar at home. We continue with those medications during the hospital stay. Patient denies any history of anxiety depression during the hospital stay. (9) CHF (congestive heart failure) Is this a current diagnosis for this admission?: Yes Summary: 07/25/2018 patient and family giving the history of congestive heart failure. Patient is not in fluid overload. We are going to arrange for the echocardiogram. 07/26/2018 it is not in fluid overload. We waiting for the echocardiogram report. Request for BNP. Requested for echocardiogram. Examination patient is not in fluid overload. Chest was clear. No pedal edema. 07/28/2018 and is given the history of congestive heart failure. No evidence of fluid overload on examination. Echocardiogram is pending. BNP is 2600. 07/29/2018 She has echocardiogram recently done on 06/08/2018. Reports his left ventricular function is normal, grade 2/4 mild to moderate diastolic dysfunction. Patient is not any fluid load overload. On examination chest bilateral entry was good ,no pedal edema. (10) Hypomagnesemia Is this a current diagnosis for this admission?: Yes Summary: 07/26/2018 magnesium level today is 1.2. She is going to get 2 g of IV magnesium. Repeat the magnesium levels tomorrow. 07/27/2018 magnesium is 1.4 today patient is going to receive 2 g of IV magnesium. 07/28/2018 patient's magnesium levels are low, we will recheck. magnesium tomorrow. 07/29/2018 patient received 2 g of IV magnesium during the hospital stay. - Additional Information Resuscitation Status: Full Code Discharge Diet: Diabetic Discharge Activity: Activity As Tolerated Prescriptions: Cyclobenzaprine HCl [Flexeril 10 mg Tablet] 5 mg PO Q8 10 Days #30 tablet Levofloxacin 500 mg/D5w RTU [Levaquin RTU 500Mg/D5w 100 ml Premix] 500 mg IV DAILY #7 rtupb Home Medications: Albuterol Sulfate [Proair HFA Inhalation Aerosol 8.5 gm MDI] 2 puff IH Q6HP PRN 07/25/18 Bupropion HCl [Wellbutrin Xl 150 mg 24hr Tablet] 150 mg PO DAILY 07/25/18 Buspirone HCl [Buspar 5 mg Tablet] 7.5 mg PO DAILY 07/25/18 Carvedilol [Coreg 12.5 mg Tablet] 12.5 mg PO Q12 07/25/18 Clopidogrel Bisulfate [Plavix 75 mg Tablet] 75 mg PO DAILY 07/25/18 Ergocalciferol (Vitamin D2) [Drisdol 50,000 unit (1.25MG) Capsule] 50,000 unit PO RICHARD@1000 07/25/18 Fenofibrate 160 mg PO DAILY 07/25/18 Furosemide [Lasix 20 mg Tablet] 20 mg PO DAILY 07/25/18 Gabapentin [Neurontin 300 mg Capsule] 300 mg PO Q8HP PRN 07/25/18 Glipizide [Glipizide Xl] 10 mg PO DAILY 07/25/18 Insulin Glargine,Hum.rec.anlog [Lantus Insulin 100 Unit/mL] 10 units SQ QHS Lisinopril [Zestril] 5 mg PO DAILY 07/25/18 Loratadine [Claritin 10 mg Tablet] 10 mg PO DAILY 07/25/18 Meclizine HCl [Antivert 12.5 mg Tablet] 12.5 mg PO TIDP PRN 07/25/18 Metformin HCl [Glucophage] 1,000 mg PO BID 07/25/18 Mometasone/Formoterol [Dulera 100 Mcg/5 Mcg Inhaler] 2 puff IH Q12 07/25/18 Montelukast Sodium [Singulair 10 mg Tablet] 10 mg PO QPM 07/25/18 Sitagliptin Phosphate [Januvia] 100 mg PO DAILY 07/25/18 Buspirone HCl [Buspar 10 mg Tablet] 10 mg PO Q12 tablet 07/29/18 Clopidogrel Bisulfate [Plavix 75 mg Tablet] 75 mg PO DAILY tablet 07/29/18 Cyclobenzaprine HCl [Flexeril 10 mg Tablet] 5 mg PO Q8 10 Days #30 tablet Glipizide [Glucotrol 5 mg Tablet] 5 mg PO BIDACBS tablet 07/29/18 Levofloxacin 500 mg/D5w RTU [Levaquin RTU 500Mg/D5w 100 ml Premix] 500 mg IV DAILY #7 rtupb 07/29/18 Lisinopril [Prinivil 5 mg Tablet] 5 mg PO DAILY tablet 07/29/18 Sitagliptin Phosphate [Januvia 50 mg Tablet] 50 mg PO DAILY tablet 07/29/18 History of Present Illness History of Present Illness: DUSTIN MALDONADO is a 58 year old female With history of CVA questionable atrial flutter depression anxiety disorder, hypertension diabetes mellitus hypercholesterolemia congestive heart failure neuropathy, CVA 3 times he anemia, chronic renal insufficiency came to the emergency room with complaints of fever and chills for the last 1 week. This fevers and chills are associated with burning sensation of the whole body, she is also given the history of dizziness for the last 1 month. Denies any cough cold or chest pain nauseated from yesterday vomited a few times yesterday clear liquids denies any blood in the vomitus. Complaining of decreased appetite for the last few days she had a given the history of constipation. In the ER she was given lactulose for a high potassium and started having the several bowel movements. Patient is also stating she stopped taking depression medications Wellbutrin ,previous medication as per the patient Zoloft was discontinued started on Wellbutrin she did not like the Wellbutrin . Patient went to see the primary care physician on , for blood work was done next day family got a call saying the potassium levels are high she needs to come back to the lab for further testing, but because the patient is not being well she decided to come to the emergency room instead. Patient is complaining of burning sensation during urination with increased frequency and foul-smelling. Patient is taking cranberry juice for the UTI symptoms at home. She does given the history of CVA recently after that she is continued to have dizzy spells. Per the family patient came in to this hospital a few weeks ago transfer to tertiary Hospital and for further investigations the is final findings snot conclusive. Patient walks with a walker and cane at home. The emergency room blood cultures urine culture was done. Started on IV fluids. She was given IV Rocephin 1 g. She was given a cocktail for hyperkalemia. Patient denies any headaches, falls. But complaining of chronic disease spells. She denies any seeing rashes. Physical Exam Vital Signs: Temp Pulse Resp BP Pulse Ox 99.5 F 96 17 124/52 L 95 07/29/18 13:55 07/29/18 13:55 07/29/18 13:55 07/29/18 13:55 07/29/18 13:55 Intake & Output 07/28/18 07/29/18 07/30/18 06:59 06:59 06:59 Intake Total 887 1263 100 Output Total 2500 315 Balance -1613 948 100 Weight 69 kg 65.3 kg General appearance: PRESENT: no acute distress Head exam: PRESENT: atraumatic Eye exam: PRESENT: PERRLA Mouth exam: PRESENT: moist Neck exam: ABSENT: carotid bruit, JVD, lymphadenopathy, thyromegaly Respiratory exam: PRESENT: clear to auscultation roderick. ABSENT: rales, rhonchi, wheezes GI/Abdominal exam: PRESENT: normal bowel sounds, soft. ABSENT: distended, guarding, mass, organolmegaly, rebound, tenderness Neurological exam: PRESENT: alert, awake, oriented to person, oriented to place , oriented to time, oriented to situation, CN II-XII grossly intact. ABSENT: motor sensory deficit Psychiatric exam: PRESENT: appropriate affect, normal mood. ABSENT: homicidal ideation, suicidal ideation Results Laboratory Results: 07/29/18 05:11 07/29/18 05:11 07/29/18 07/29/18 05:11 05:11 WBC 6.5 RBC 3.22 L Hgb 9.2 L Hct 27.1 L MCV 84 MCH 28.6 MCHC 33.9 RDW 15.3 H Plt Count 286 Seg Neutrophils % Not Reportable Lymphocytes % Not Reportable Monocytes % Not Reportable Eosinophils % Not Reportable Basophils % Not Reportable Absolute Neutrophils Not Reportable Absolute Lymphocytes Not Reportable Absolute Monocytes Not Reportable Absolute Eosinophils Not Reportable Absolute Basophils Not Reportable Sodium 139.6 Potassium 4.0 Chloride 99 Carbon Dioxide 27 Anion Gap 14 BUN 16 Creatinine 0.92 Est GFR ( Amer) > 60 Est GFR (Non-Af Amer) > 60 Glucose 177 H Calcium 9.3 Magnesium 1.6 Total Bilirubin 0.8 AST 29 ALT 16 Alkaline Phosphatase 57 Total Protein 7.6 Albumin 3.4 L 07/25/18 07/25/18 07/25/18 14:53 14:53 20:50 Creatine Kinase 40 50 CK-MB (CK-2) 0.47 Troponin I 0.026 NT-Pro-B Natriuret Pep 07/25/18 07/26/18 07/26/18 20:50 03:22 03:22 Creatine Kinase 49 CK-MB (CK-2) 0.43 0.52 Troponin I 0.056 0.022 NT-Pro-B Natriuret Pep 07/26/18 07/28/18 03:22 04:31 Creatine Kinase CK-MB (CK-2) Troponin I NT-Pro-B Natriuret Pep 6650 H 2600 H Impressions: Chest X-Ray 07/25/18 09:27 IMPRESSION: NO ACUTE RADIOGRAPHIC FINDING IN THE CHEST. Qualifiers - * PATIENT BEING DISCHARGED WITH ANY OF THE FOLLOWING DIAGNOSIS: No VTE patient discharged on overlapping Therapy?: No
== END 2018-07-29 14:39 | disposition home or self-care (01) | DRG 871 ==
LOC: ER 08:55 → EH 14:14 → 3W 16:11 → 4N 07-28 00:01
PROVIDERS: ADMIT Emergency Medicine; ATTEND Emergency Medicine
PROC: 3E0F73Z Introduction of Anti-inflammatory into Respiratory Tract, Via Natural or Artificial Opening (ICD-10-PCS; 2018-07-25)
PROC: 30233N1 Transfusion of Nonautologous Red Blood Cells into Peripheral Vein, Percutaneous Approach (ICD-10-PCS; principal; 2018-07-26)
DX: A41.9 Sepsis, unspecified organism (principal); I50.33 Acute on chronic diastolic (congestive) heart failure; N39.0 Urinary tract infection, site not specified; I13.0 Hypertensive heart and chronic kidney disease with heart failure and stage 1 through stage 4 chronic kidney disease, or unspecified chronic kidney disease; R65.20 Severe sepsis without septic shock; B96.20 Unspecified Escherichia coli [E. coli] as the cause of diseases classified elsewhere; E87.5 Hyperkalemia; E11.22 Type 2 diabetes mellitus with diabetic chronic kidney disease; F32.9 Major depressive disorder, single episode, unspecified; E83.42 Hypomagnesemia; E11.40 Type 2 diabetes mellitus with diabetic neuropathy, unspecified; E78.00 Pure hypercholesterolemia, unspecified; N18.9 Chronic kidney disease, unspecified; D63.1 Anemia in chronic kidney disease; Z86.73 Personal history of transient ischemic attack (TIA), and cerebral infarction without residual deficits; Z79.899 Other long term (current) drug therapy; Z79.4 Long term (current) use of insulin; Z83.3 Family history of diabetes mellitus; Z82.49 Family history of ischemic heart disease and other diseases of the circulatory system
CPT/HCPCS: 36415; 36430; 71045; 80053; 80061; 81001; 82550; 82553; 82803; 82962; 83036; 83605; 83735; 83880; 84132; 84443; 84484; 85025; 85610; 86850; 86900; 86901; 86920; 87040; 87077; 87086; 87088; 87186; 93005; 93010; 96360; 96361; 99285; G8978-GP; G8979-GP; J0610; J0692; J0696; J1650; J1815; J1956; J2405; J2550; J3475; J3490; J7030; J7120; P9016; S0028

== ENCOUNTER 2018-07-31 01:32 | Inpatient (IN) | payer MEDICARE, OTHER ==
--- NOTE | 2018-07-31 01:59 | ER Document Report ---
ED General - General Stated Complaint: FALL Time Seen by Provider: 07/31/18 01:58 TRAVEL OUTSIDE OF THE [place] IN LAST 30 DAYS: No - Related Data Allergies/Adverse Reactions: No Known Allergies Allergy (Verified 06/14/18 10:04) Past Medical History - Social History Family History: DM, Hyperlipidemia, Hypertension - Past Medical History Cardiac Medical History: Reports: Hx Congestive Heart Failure, Hx Hypercholesterolemia, Hx Hypertension Pulmonary Medical History: Reports: Hx Asthma Endocrine Medical History: Reports: Hx Diabetes Mellitus Type 1, Hx Diabetes Mellitus Type 2 Renal/ Medical History: Denies: Hx Peritoneal Dialysis Psychiatric Medical History: Reports: Hx Depression Past Surgical History: Reports: Hx Section, Hx Vascular Surgery - Angio - Immunizations Hx Diphtheria, Pertussis, Tetanus Vaccination: Yes Hx Pneumococcal Vaccination: 04/27/15 Physical Exam - Vital signs Vitals: Temp 97.6 F 07/31/18 01:43 Course - Vital Signs Vital signs: Temp Pulse Resp BP Pulse Ox 97.6 F 22 H 84/35 L 100 07/31/18 01:43 07/31/18 02:01 07/31/18 02:01 07/31/18 01:55 - Laboratory Result Diagrams: 07/31/18 01:45 07/31/18 01:45 - EKG Interpretation by Me Additional EKG results interpreted by me: 07/31/18 01:59 07/31/18 02:08
[2018-07-31] MEDS ORDERED: CEFTRIAXONE INJ 1000 MG VIAL IV ONE (02:02)
[2018-07-31] MEDS ORDERED: NORMAL SALINE 1000 ML 1,000 ML IV ONE (02:03)
[2018-07-31 02:11] LABS: VENOUS BLOOD BASE EXCESS -4.4 mmol/L; VENOUS BLOOD HCO3 22.6 mmol/L (20-32); VENOUS BLOOD PCO2 49.2 mmHg (35-63); VENOUS BLOOD PH 7.28 (7.30-7.42)
[2018-07-31 02:24] LABS: HEMATOCRIT 27.6 % (36.0-47.0); HEMOGLOBIN 9.2 g/dL (12.0-15.5); MEAN CORPUSCULAR HEMOGLOBIN 29.3 pg (27.0-33.4); MEAN CORPUSCULAR HGB CONC 33.5 g/dL (32.0-36.0); MEAN CORPUSCULAR VOLUME 87 fl (80-97); PLATELET COUNT 324 10^3/uL (150-450); RED BLOOD COUNT 3.15 10^6/uL (3.72-5.28); RED CELL DISTRIBUTION WIDTH 15.9 % (11.5-14.0); WHITE BLOOD COUNT 7.6 10^3/uL (4.0-10.5)
--- NOTE | 2018-07-31 02:31 | ER Document Report ---
Sepsis - Sepsis Documentation Sepsis Patient: Yes - Vital Signs Vitals: Temp Pulse Resp BP Pulse Ox 97.6 F 22 H 84/35 L 100 07/31/18 01:43 07/31/18 02:01 07/31/18 02:01 07/31/18 01:55 - Cardiovascular Peripheral Pulse Strength: Weak Capillary refill: Delayed Rhythm: Regular Heart Sounds: Normal auscultation - Respiratory Breath Sounds: Clear. negative: Rales, Rhonchi, Wheezing, Crackle Respiratory Status: No respiratory distress - Skin Skin Color: Pale. negative: Mottled, Cyanotic
--- NOTE | 2018-07-31 02:37 | ER Document Report ---
ED Dizziness/Weakness - General Chief Complaint: General Weakness Stated Complaint: FALL Time Seen by Provider: 07/31/18 01:58 Mode of Arrival: Stretcher Information source: Patient, Relative Notes: Patient is a 58-year-old female with a complicated past medical history including stroke, diabetes, hypertension, and recent inpatient admission for sepsis from a urinary tract infection presents with weakness for the past day. Family reports the patient was admitted "last week" for weakness, found to be septic from a urinary source, given IV fluids and antibiotics. She was discharged 1 day ago after improvement. Her first day home was unremarkable, however earlier today the patient began feeling weak all over. She denies pain , no fevers or chills, no chest pain or shortness of breath. She feels worse than her initial presentation 1 week ago. TRAVEL OUTSIDE OF THE [place] IN LAST 30 DAYS: No - HPI Patient complains to provider of: Weakness Onset: This morning Onset/Duration: Gradual Quality of pain: No pain Severity: Severe Pain Level: Denies Context: Other - Recent inpatient treatment for sepsis from UTI Associated symptoms: Almost fainted, Loss of motor function, Loss of strength, Weak all over. denies: Palpitations Exacerbated by: Change in position Baseline gait: Walks w/o assistance - Related Data Allergies/Adverse Reactions: No Known Allergies Allergy (Verified 06/14/18 10:04) Past Medical History - General Information source: Patient, Relative - Social History Smoking Status: Unknown if Ever Smoked Cigarette use (# per day): No Chew tobacco use (# tins/day): No Smoking Education Provided: No Frequency of alcohol use: None Drug Abuse: None Lives with: Family Family History: DM, Hyperlipidemia, Hypertension Patient has suicidal ideation: No Patient has homicidal ideation: No - Past Medical History Cardiac Medical History: Reports: Hx Congestive Heart Failure, Hx Hypercholesterolemia, Hx Hypertension Pulmonary Medical History: Reports: Hx Asthma EENT Medical History: Reports: None Neurological Medical History: Reports: Hx Cerebrovascular Accident Endocrine Medical History: Reports: Hx Diabetes Mellitus Type 1, Hx Diabetes Mellitus Type 2 Renal/ Medical History: Reports: None. Denies: Hx Peritoneal Dialysis Malignancy Medical History: Reports: None GI Medical History: Reports: None Musculoskeletal Medical History: Reports None Skin Medical History: Reports None Psychiatric Medical History: Reports: Hx Depression Traumatic Medical History: Reports: None Past Surgical History: Reports: Hx Section, Hx Vascular Surgery - Angio - Immunizations Hx Diphtheria, Pertussis, Tetanus Vaccination: Yes Hx Pneumococcal Vaccination: 04/27/15 Review of Systems - Review of Systems -: Yes ROS unobtainable due to patient's medical condition Constitutional: See HPI, Malaise, Weakness. denies: Fever EENT: No symptoms reported Cardiovascular: No symptoms reported Respiratory: No symptoms reported Gastrointestinal: No symptoms reported Genitourinary: No symptoms reported Female Genitourinary: No symptoms reported Musculoskeletal: No symptoms reported Skin: No symptoms reported Hematologic/Lymphatic: No symptoms reported Neurological/Psychological: Weakness. denies: Lost consciousness, Speech impairment -: Yes All other systems reviewed and negative Physical Exam - Vital signs Vitals: Temp 97.6 F 07/31/18 01:43 Interpretation: Normal, Hypotensive - General General appearance: Alert, Lethargic, Other - Ill-appearing In distress: Moderate - HEENT Head: Normocephalic, Atraumatic Eyes: Normal Pupils: PERRL - Respiratory Respiratory status: No respiratory distress Chest status: Nontender Breath sounds: Normal Chest palpation: Normal - Cardiovascular Rhythm: Regular Heart sounds: Normal auscultation Murmur: No Pulses: Normal: Carotid, Decreased: Radial, Femoral Normal capillary refill: No - Delayed - Abdominal Inspection: Normal Distension: No distension Bowel sounds: Normal Tenderness: Nontender Organomegaly: No organomegaly - Rectal Tenderness: No - Deferred - Genitourinary Notes: Deferred - Back Back: Normal, Nontender - Extremities General upper extremity: Normal inspection, Nontender, Normal color, Normal ROM , Normal temperature General lower extremity: Normal inspection, Nontender, Normal color, Normal ROM , Normal temperature, Normal weight bearing. No: Ralph's sign - Neurological Neuro grossly intact: Yes Cognition: Normal Orientation: AAOx4 [place] Coma Scale Eye Opening: Spontaneous [place] Coma Scale Verbal: Oriented [place] Coma Scale Motor: Obeys Commands [place] Coma Scale Total: 15 Speech: Normal Motor strength normal: LUE, RUE, LLE, RLE Sensory: Normal - Psychological Associated symptoms: Normal affect, Normal mood - Skin Skin Temperature: Warm Skin Moisture: Dry Skin Color: Normal Course - Re-evaluation Re-evalutation: 07/31/18 02:38 Concerning for recurrent sepsis given her recent admission and clinical presentation. Will obtain sepsis labs, start empiric IV fluids with antibiotics , and will admit to the hospital. 07/31/18 04:20 Blood work indicates normal white blood cell count, elevated lactic acid of 5.6 up from discharge of less than 1, urinalysis not yet obtained given the patient has refused to have catheterization. Patient does not have history of chronic renal failure, however currently her creatinine is greater than 3 up from a baseline of normal. Will obtain CT scan and patient is admitted to the hospitalist. - Vital Signs Vital signs: Temp Pulse Resp BP Pulse Ox 97.6 F 19 109/64 95 07/31/18 01:43 07/31/18 03:40 07/31/18 03:40 07/31/18 03:40 - Laboratory Result Diagrams: 07/31/18 01:45 07/31/18 02:59 Laboratory results interpreted by me: 07/31/18 07/31/18 07/31/18 01:45 01:45 01:45 RBC 3.15 L Hgb 9.2 L Hct 27.6 L RDW 15.9 H VBG pH 7.28 L Carbon Dioxide BUN Creatinine Est GFR ( Amer) Est GFR (Non-Af Amer) Glucose Lactic Acid 5.6 H Albumin 07/31/18 02:59 RBC Hgb Hct RDW VBG pH Carbon Dioxide 20 L BUN 37 H Creatinine 3.74 H Est GFR ( Amer) 15 L Est GFR (Non-Af Amer) 12 L Glucose 186 H Lactic Acid Albumin 3.1 L - Diagnostic Test Radiology reviewed: Reports reviewed - EKG Interpretation by Me EKG shows normal: Sinus rhythm Rate: Normal Rhythm: NSR [place]/QRS: No: LBBB P Waves: No: NUNO, LAE, Absent, AV Dissociation, Other Heart block present: No: 1st Degree, Mobitz 1, Mobitz 2, CHB (3rd degree block) When compared to previous EKG there are: No significant change - Consults Dr. Macario Time consulted: 04:21 - obtain CT stone study, will admit Consulted provider: will come to ER Critical Care Note - Critical Care Note Total time excluding time spent on procedures (mins): 120 Comments: Total critical care time is 120 minutes. This physician was personally responsible for interpreting laboratory data, starting IV fluids, giving IV antibiotics. Discharge - Discharge Clinical Impression: Acute renal failure (ARF), Sepsis, Hypotension Condition: Stable Disposition: ADMITTED INPATIENT Admitting Provider: Hospitalist Unit Admitted: IMCU Referrals: KATT RAMSEY PA-C [Primary Care Provider] - Follow up as needed
[2018-07-31 02:40] LABS: ABSOLUTE LYMPHOCYTES# (MANUAL) 1.5 10^3/uL (0.5-4.7); ABSOLUTE MONOCYTES # (MANUAL) 0.6 10^3/uL (0.1-1.4); ABSOLUTE NEUTROPHILS# (MANUAL) 5.4 10^3/uL (1.7-8.2); BASOPHILS % (MANUAL) 0 % (0-2); EOSINOPHILS % (MANUAL) 1 % (0-6); LYMPHOCYTES % (MANUAL) 20 % (13-45); MONOCYTES % (MANUAL) 8 % (3-13); SEGMENTED NEUTROPHILS % (MAN) 71 % (42-78); TOTAL CELLS COUNTED 100
[2018-07-31 02:41] LABS: ANISOCYTOSIS SLIGHT; BURR CELLS 2+; PLATELET CLUMPS PRESENT; PLATELET COMMENT ADEQUATE; PLATELET LARGE PRESENT; POIKILOCYTOSIS 1+; SCHISTOCYTES 1+; TOXIC GRANULATION 1+
--- NOTE | 2018-07-31 03:05 | RADIOLOGY REPORT (SQ) ---
EXAM DESCRIPTION: XR CHEST 1 VIEW COMPLETED DATE/TME: 07/31/2018 02:07 CLINICAL HISTORY: 58 years Female, hypotension COMPARISON:07/25/2018 NUMBER OF VIEWS/TECHNIQUE: 1/AP FINDINGS: Adequate lung volume, clear parenchyma, normal cardiac silhouette, atherosclerosis, and intact bony thorax. IMPRESSION: No acute cardiopulmonary findings.
[2018-07-31 03:20] LABS: ALANINE AMINOTRANSFERASE 15 U/L (9-52); ALBUMIN 3.1 g/dL (3.5-5.0); ALKALINE PHOSPHATASE 63 U/L (38-126); ANION GAP 19 (5-19); ASPARTATE AMINO TRANSFERASE 35 U/L (14-36); BILIRUBIN,DIRECT 0.3 mg/dL (0.0-0.4); BILIRUBIN,TOTAL 0.3 mg/dL (0.2-1.3); BLOOD UREA NITROGEN 37 mg/dL (7-20); CALCIUM 8.4 mg/dL (8.4-10.2); CARBON DIOXIDE 20 mmol/L (22-30); CHLORIDE 99 mmol/L (98-107); GLUCOSE 186 mg/dL (75-110); POTASSIUM 4.4 mmol/L (3.6-5.0); SODIUM 137.6 mmol/L (137-145); TOTAL PROTEIN 6.7 g/dL (6.3-8.2)
--- NOTE | 2018-07-31 05:03 | RADIOLOGY REPORT (SQ) ---
CLINICAL HISTORY: Renal failure COMPARISON: None. 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 FINDINGS: Lower lungs are clear. Abdomen: The liver is normal in appearance. There is no biliary dilatation. Gallbladder is normal in appearance. The pancreas and spleen are normal in appearance. Adrenal glands are unremarkable. There is a vague millimeters lower pole right renal calculus. There is no hydronephrosis. There is mild bilateral perinephric stranding. Abdominal aorta is normal in course and caliber without aneurysm. There is no free air. There is no retroperitoneal adenopathy. Pelvis: There is no bowel obstruction. Urinary bladder is unremarkable. There is no free fluid. Uterus is normal in size. There is mild mostly right sided flank diverticulosis. Skeleton: There are no acute osseous findings. No suspicious bony lesions. IMPRESSION: Right nephrolithiasis without hydronephrosis.
[2018-07-31] MEDS ORDERED: DEXTROSE 50%-WATER 25 GM/50 ML DISP.SYRIN IV PRN ×2 (05:39)
[2018-07-31] MEDS ORDERED: INSULIN LISPRO 100 UNIT/ML 3 ML VIAL SUBCUT PRN (05:39)
[2018-07-31] MEDS ORDERED: DEXTROSE 40% GEL 15 GM TUBE PO PRN (05:39)
[2018-07-31] MEDS ORDERED: GLUCAGON,HUMAN RECOMB 1 MG INJ IM PRN (05:39)
[2018-07-31] MEDS ORDERED: IPRATROPIUM/ALBUTEROL 0.5-2.5 MG/3 ML AMPUL NEB PRN (05:41)
[2018-07-31] MEDS ORDERED: MAGNESIUM HYDROXIDE SUSP 30 ML UDCUP PO PRN (05:41)
[2018-07-31] MEDS: CIPROFLOXACIN 400 MG/D5W RTU 400 MG/200 ML RTUPB IV SCH ×2 (06:18→17:02)
[2018-07-31] MEDS: HEPARIN SOD (PORCINE) 5,000 UNIT/ML 1 ML SYRINGE SUBCUT SCH ×3 (06:21→22:14)
[2018-07-31] MEDS ORDERED: BUPROPION HCL 100 MG TABLET ONE (06:39)
[2018-07-31] MEDS: BUPROPION HCL 100 MG TABLET PO SCH ×3 (06:53→22:17)
[2018-07-31] MEDS: DEXTROSE 40% GEL 15 GM TUBE PO PRN ×3 (07:13→10:52)
--- NOTE | 2018-07-31 07:45 | PDOC H&P ---
History of Present Illness Admission Date/PCP: 07/31/18 04:32 KATT RAMSEY PA-C Patient complains of: Generalized weakness History of Present Illness: DUSTIN MALDONADO is a 58 year old female with a past medical history of diabetes, hypertension, CVA without residual, peripheral neuropathy, dyslipidemia, COPD, iron deficiency anemia, anxiety and recent pyelonephritis. Patient was discharged 48 hours ago with antibiotics sensitive to E. coli cultured from blood and urine. Patient admits compliance with medications. In the emergency room she is found to have hypotension with a systolic blood pressure in the 80s, acute renal failure and lactic acidosis. She started on IV fluid challenge, and IV antibiotics and referred to the hospitalist for admission. Past Medical History Cardiac Medical History: Reports: Congestive Heart Failure, Hyperlipidema, Hypertension Pulmonary Medical History: Reports: Asthma EENT Medical History: Reports: None Endocrine Medical History: Reports: Diabetes Mellitus Type 1, Diabetes Mellitus Type 2 Renal/ Medical History: Reports: Nephrolithiasis, Other - Pyelonephritis Malignancy Medical History: Reports: None GI Medical History: Reports: None Musculoskeltal Medical History: Reports: None Skin Medical History: Reports: None Psychiatric Medical History: Reports: Depression Traumatic Medical History: Reports: None Hematology: Reports: Anemia Past Surgical History Past Surgical History: Reports: Section, Vascular Surgery - Angio Social History Information Source: Patient, [facility] Records Lives with: Family Smoking Status: Unknown if Ever Smoked Frequency of Alcohol Use: None Hx Recreational Drug Use: No Drugs: None Hx Prescription Drug Abuse: No - Advance Directive Resuscitation Status: Full Code Family History Family History: DM, Hyperlipidemia, Hypertension Parental Family History Reviewed: Yes Children Family History Reviewed: Yes Sibling(s) Family History Reviewed.: Yes Medication/Allergy Home Medications: Albuterol Sulfate [Proair HFA Inhalation Aerosol 8.5 gm MDI] 2 puff IH Q6HP PRN 07/25/18 Bupropion HCl [Wellbutrin Xl 150 mg 24hr Tablet] 150 mg PO DAILY 07/25/18 Buspirone HCl [Buspar 5 mg Tablet] 7.5 mg PO DAILY 07/25/18 Carvedilol [Coreg 12.5 mg Tablet] 12.5 mg PO Q12 07/25/18 Clopidogrel Bisulfate [Plavix 75 mg Tablet] 75 mg PO DAILY 07/25/18 Ergocalciferol (Vitamin D2) [Drisdol 50,000 unit (1.25MG) Capsule] 50,000 unit PO RICHARD@1000 07/25/18 Fenofibrate 160 mg PO DAILY 07/25/18 Furosemide [Lasix 20 mg Tablet] 20 mg PO DAILY 07/25/18 Gabapentin [Neurontin 300 mg Capsule] 300 mg PO Q8HP PRN 07/25/18 Glipizide [Glipizide Xl] 10 mg PO DAILY 07/25/18 Insulin Glargine,Hum.rec.anlog [Lantus Insulin 100 Unit/mL] 10 units SQ QHS Lisinopril [Zestril] 5 mg PO DAILY 07/25/18 Loratadine [Claritin 10 mg Tablet] 10 mg PO DAILY 07/25/18 Meclizine HCl [Antivert 12.5 mg Tablet] 12.5 mg PO TIDP PRN 07/25/18 Metformin HCl [Glucophage] 1,000 mg PO BID 07/25/18 Mometasone/Formoterol [Dulera 100 Mcg/5 Mcg Inhaler] 2 puff IH Q12 07/25/18 Montelukast Sodium [Singulair 10 mg Tablet] 10 mg PO QPM 07/25/18 Sitagliptin Phosphate [Januvia] 100 mg PO DAILY 07/25/18 Buspirone HCl [Buspar 10 mg Tablet] 10 mg PO Q12 tablet 07/29/18 Clopidogrel Bisulfate [Plavix 75 mg Tablet] 75 mg PO DAILY tablet 07/29/18 Cyclobenzaprine HCl [Flexeril 10 mg Tablet] 5 mg PO Q8 10 Days #30 tablet Glipizide [Glucotrol 5 mg Tablet] 5 mg PO BIDACBS tablet 07/29/18 Levofloxacin 500 mg/D5w RTU [Levaquin RTU 500Mg/D5w 100 ml Premix] 500 mg IV DAILY #7 rtupb 07/29/18 Lisinopril [Prinivil 5 mg Tablet] 5 mg PO DAILY tablet 07/29/18 Sitagliptin Phosphate [Januvia 50 mg Tablet] 50 mg PO DAILY tablet 07/29/18 Allergies/Adverse Reactions: No Known Allergies Allergy (Verified 06/14/18 10:04) Review of Systems Constitutional: PRESENT: anorexia, fatigue, weakness. ABSENT: chills, fever(s) , headache(s), weight gain, weight loss Eyes: ABSENT: visual disturbances Ears: ABSENT: hearing changes Cardiovascular: ABSENT: chest pain, dyspnea on exertion, edema, orthropnea, palpitations Respiratory: ABSENT: cough, hemoptysis Gastrointestinal: ABSENT: abdominal pain, diarrhea, hematemesis, hematochezia, nausea, vomiting Genitourinary: ABSENT: dysuria, hematuria Musculoskeletal: ABSENT: joint swelling Integumentary: ABSENT: rash, wounds Neurological: ABSENT: abnormal gait, abnormal speech, confusion, dizziness, focal weakness, syncope Psychiatric: PRESENT: anxiety Endocrine: ABSENT: cold intolerance, heat intolerance, polydipsia, polyuria Hematologic/Lymphatic: ABSENT: easy bleeding, easy bruising Physical Exam Vital Signs: Temp Pulse Resp BP Pulse Ox 97.6 F 18 93/71 L 99 07/31/18 01:43 07/31/18 07:19 07/31/18 07:19 07/31/18 07:19 Intake & Output 07/29/18 07/30/18 07/31/18 11:59 11:59 11:59 Intake Total 200 Balance 200 General appearance: PRESENT: cooperative, severe distress. ABSENT: disheveled Head exam: PRESENT: atraumatic, normocephalic Eye exam: PRESENT: conjunctiva pink, EOMI, PERRLA. ABSENT: scleral icterus Ear exam: PRESENT: normal external ear exam Mouth exam: PRESENT: dry mucosa, neck supple. ABSENT: laceration, moist Neck exam: ABSENT: carotid bruit, JVD, lymphadenopathy, thyromegaly Respiratory exam: PRESENT: clear to auscultation roderick. ABSENT: rales, rhonchi, wheezes Cardiovascular exam: PRESENT: RRR. ABSENT: diastolic murmur, rubs, systolic murmur Pulses: PRESENT: normal dorsalis pedis pul Vascular exam: PRESENT: normal capillary refill GI/Abdominal exam: PRESENT: normal bowel sounds, soft. ABSENT: distended, guarding, mass, organolmegaly, rebound, tenderness Rectal exam: PRESENT: deferred Extremities exam: PRESENT: full ROM. ABSENT: calf tenderness, clubbing, pedal edema Neurological exam: PRESENT: alert, awake, oriented to person, oriented to place , oriented to time, oriented to situation, CN II-XII grossly intact. ABSENT: motor sensory deficit Psychiatric exam: PRESENT: appropriate affect, normal mood. ABSENT: homicidal ideation, suicidal ideation Skin exam: PRESENT: dry, intact, warm. ABSENT: cyanosis, rash Results Laboratory Results: 07/31/18 05:52 Lactic Acid 2.6 H Impressions: Chest X-Ray 07/31/18 02:07 IMPRESSION: No acute cardiopulmonary findings. Abdomen/Pelvis CT 07/31/18 04:19 IMPRESSION: Right nephrolithiasis without hydronephrosis. Assessment & Plan - Diagnosis (1) Sepsis Is this a current diagnosis for this admission?: Yes Plan: Secondary to E. coli pyelonephritis with ciprofloxacin sensitivity. IV fluid challenge, Cipro, as needed pressors, history of C. difficile, follow-up C. difficile blood culture and CBC (2) Acute renal failure (ARF) Is this a current diagnosis for this admission?: Yes Plan: Secondary to hypotension, IV fluid challenge toxic meds and doses reevaluate chemistry (3) Hypotension Is this a current diagnosis for this admission?: Yes Plan: Secondary to sepsis. IV fluid challenge, pressors as needed - Time Time Spent: 50 to 70 Minutes - Inpatient Certification Medical Necessity: Need Close Monitoring Due to Risk of Patient Decompensation
[2018-07-31] MEDS: ACETAMINOPHEN 325 MG TABLET PO PRN ×2 (08:03→19:48)
[2018-07-31] MEDS: NORMAL SALINE 1000 ML 1,000 ML IV PRN ×4 (08:04→22:22)
[2018-07-31] MEDS: CARVEDILOL 12.5 MG TABLET PO SCH ×2 (10:38→22:14)
[2018-07-31] MEDS: CLOPIDOGREL BISULFATE 75 MG TABLET PO SCH (10:52)
[2018-07-31] MEDS: DOCUSATE SODIUM 100 MG CAPSULE PO SCH ×3 (10:52→17:01)
[2018-07-31] MEDS ORDERED: DEXTROSE 10%-WATER 1,000 ML IV PRN (11:22)
--- NOTE | 2018-07-31 12:00 | EKG REPORT ---
SEVERITY:- BORDERLINE ECG - SINUS RHYTHM BORDERLINE PROLONGED QT INTERVAL : Confirmed by: Daphnie King 31-Jul-2018 11:58:41
[2018-07-31 16:06] LABS: ANION GAP 16 (5-19); BLOOD UREA NITROGEN 35 mg/dL (7-20); CALCIUM 7.9 mg/dL (8.4-10.2); CARBON DIOXIDE 20 mmol/L (22-30); CHLORIDE 101 mmol/L (98-107); GLUCOSE 150 mg/dL (75-110); POTASSIUM 4.3 mmol/L (3.6-5.0); SODIUM 137.3 mmol/L (137-145)
[2018-07-31 21:27] LABS: APPEARANCE,URINE CLEAR; BILIRUBIN,URINE NEGATIVE (NEGATIVE); COLOR,URINE STRAW; GLUCOSE, URINE 50 mg/dL (NEGATIVE); KETONES,URINE NEGATIVE (NEGATIVE); LEUKOCYTE ESTERASE,URINE TRACE (NEGATIVE); NITRITE,URINE NEGATIVE (NEGATIVE); PROTEIN,URINE NEGATIVE (NEGATIVE); URINE SPECIFIC GRAVITY 1.006; UROBILINOGEN,URINE NEGATIVE mg/dL (<2.0)
[2018-07-31] MEDS ORDERED: INSULIN GLARGINE,HUM.REC.ANLOG 300 UNIT/3 ML INSULN.PEN SUBCUT SCH (22:00)
[2018-07-31] MEDS: GABAPENTIN 300 MG CAPSULE PO PRN (22:18)
[2018-08-01] MEDS: NORMAL SALINE 1000 ML 1,000 ML IV PRN ×2 (04:37→13:35)
[2018-08-01 05:56] LABS: HEMATOCRIT 27.4 % (36.0-47.0); HEMOGLOBIN 9.3 g/dL (12.0-15.5); MEAN CORPUSCULAR HEMOGLOBIN 29.1 pg (27.0-33.4); MEAN CORPUSCULAR HGB CONC 33.9 g/dL (32.0-36.0); MEAN CORPUSCULAR VOLUME 86 fl (80-97); PLATELET COUNT 272 10^3/uL (150-450); RED BLOOD COUNT 3.18 10^6/uL (3.72-5.28); RED CELL DISTRIBUTION WIDTH 14.8 % (11.5-14.0); WHITE BLOOD COUNT 6.3 10^3/uL (4.0-10.5)
[2018-08-01] MEDS: HEPARIN SOD (PORCINE) 5,000 UNIT/ML 1 ML SYRINGE SUBCUT SCH ×3 (06:05→22:25)
[2018-08-01 06:20] LABS: ANION GAP 12 (5-19); BLOOD UREA NITROGEN 19 mg/dL (7-20); CARBON DIOXIDE 22 mmol/L (22-30); CHLORIDE 110 mmol/L (98-107); GLUCOSE 129 mg/dL (75-110); POTASSIUM 4.5 mmol/L (3.6-5.0); SODIUM 143.6 mmol/L (137-145)
[2018-08-01 06:32] LABS: ABSOLUTE LYMPHOCYTES# (MANUAL) 1.1 10^3/uL (0.5-4.7); ABSOLUTE MONOCYTES # (MANUAL) 0.4 10^3/uL (0.1-1.4); ABSOLUTE NEUTROPHILS# (MANUAL) 4.8 10^3/uL (1.7-8.2); BASOPHILS % (MANUAL) 0 % (0-2); EOSINOPHILS % (MANUAL) 1 % (0-6); LYMPHOCYTES % (MANUAL) 17 % (13-45); MONOCYTES % (MANUAL) 6 % (3-13); OVALOCYTES SLIGHT; POIKILOCYTOSIS SLIGHT; SEGMENTED NEUTROPHILS % (MAN) 76 % (42-78); TOTAL CELLS COUNTED 100
[2018-08-01 06:33] LABS: PLATELET COMMENT ADEQUATE
[2018-08-01] MEDS: BUPROPION HCL 100 MG TABLET PO SCH ×3 (06:37→22:30)
[2018-08-01] MEDS: CIPROFLOXACIN 400 MG/D5W RTU 400 MG/200 ML RTUPB IV SCH ×2 (06:37→17:50)
[2018-08-01] MEDS: CARVEDILOL 12.5 MG TABLET PO SCH ×2 (09:22→22:30)
[2018-08-01] MEDS: ACETAMINOPHEN 325 MG TABLET PO PRN (09:22)
[2018-08-01] MEDS: CLOPIDOGREL BISULFATE 75 MG TABLET PO SCH (09:22)
[2018-08-01] MEDS: DOCUSATE SODIUM 100 MG CAPSULE PO SCH ×2 (09:23→17:50)
--- NOTE | 2018-08-01 14:18 | PDOC PROGRESS REPORT ---
Subjective Progress Note for:: 08/01/18 Subjective:: DUSTIN MALDONADO is a 58 year old female with a past medical history of diabetes, hypertension, history of CVA, chronic diastolic heart failure, peripheral neuropathy, dyslipidemia, COPD, iron deficiency anemia, anxiety and recent pyelonephritis who was brought in because of increasing weakness. She was recently discharged 2 days ago for sepsis from pyelonephritis with E. coli bacteremia 2/2 bottles. She was hypotensive in the 80s systolic in the ER and was admitted for severe sepsis. No acute event overnight. This morning, patient is not in distress. She says she is feeling better today. She says she was recently discharged on Levaquin for her UTI. She only had 1 dose of Levaquin at home before she developed the weakness and had to be brought back to the ER. No fever or chills. Denies chest pain or SOB. Reason For Visit: SEPSIS,PYELONEPHRITIS Physical Exam Vital Signs: Temp Pulse Resp BP Pulse Ox 98.7 F 89 16 137/50 H 98 08/01/18 11:20 08/01/18 11:51 08/01/18 11:51 08/01/18 11:20 08/01/18 11:51 Intake & Output 07/31/18 08/01/18 08/02/18 06:59 06:59 06:59 Intake Total 4022 1822 Output Total 1825 Balance 2197 1822 Weight 156 lb 8.451 oz General appearance: PRESENT: no acute distress, well-developed, well-nourished Head exam: PRESENT: atraumatic, normocephalic Eye exam: PRESENT: conjunctiva pink, EOMI, PERRLA. ABSENT: scleral icterus Ear exam: PRESENT: normal external ear exam Mouth exam: PRESENT: moist, tongue midline Neck exam: ABSENT: carotid bruit, JVD, lymphadenopathy, thyromegaly Respiratory exam: PRESENT: clear to auscultation roderick. ABSENT: rales, rhonchi, wheezes Cardiovascular exam: PRESENT: RRR. ABSENT: diastolic murmur, rubs, systolic murmur Pulses: PRESENT: normal dorsalis pedis pul GI/Abdominal exam: PRESENT: normal bowel sounds, soft. ABSENT: distended, guarding, mass, organolmegaly, rebound, tenderness Rectal exam: PRESENT: deferred Neurological exam: PRESENT: alert, awake, oriented to person, oriented to place , oriented to time, oriented to situation, CN II-XII grossly intact. ABSENT: motor sensory deficit Results Laboratory Results: 08/01/18 05:39 08/01/18 05:39 07/31/18 07/31/18 07/31/18 11:52 15:20 19:55 WBC RBC Hgb Hct MCV MCH MCHC RDW Plt Count Seg Neutrophils % Lymphocytes % Monocytes % Eosinophils % Basophils % Absolute Neutrophils Absolute Lymphocytes Absolute Monocytes Absolute Eosinophils Absolute Basophils Sodium 137.3 Potassium 4.3 Chloride 101 Carbon Dioxide 20 L Anion Gap 16 BUN 35 H Creatinine 2.28 H Est GFR ( Amer) 26 L Est GFR (Non-Af Amer) 22 L Glucose 150 H Lactic Acid 4.2 H 3.5 H Calcium 7.9 L Urine Color Urine Appearance Urine pH Ur Specific [place] Urine Protein Urine Glucose (UA) Urine Ketones Urine Blood Urine Nitrite Ur Leukocyte Esterase Urine WBC (Auto) Urine RBC (Auto) 07/31/18 08/01/18 08/01/18 21:00 05:39 05:39 WBC 6.3 RBC 3.18 L Hgb 9.3 L Hct 27.4 L MCV 86 MCH 29.1 MCHC 33.9 RDW 14.8 H Plt Count 272 Seg Neutrophils % Not Reportable Lymphocytes % Not Reportable Monocytes % Not Reportable Eosinophils % Not Reportable Basophils % Not Reportable Absolute Neutrophils Not Reportable Absolute Lymphocytes Not Reportable Absolute Monocytes Not Reportable Absolute Eosinophils Not Reportable Absolute Basophils Not Reportable Sodium 143.6 Potassium 4.5 Chloride 110 H Carbon Dioxide 22 Anion Gap 12 BUN 19 Creatinine 1.09 Est GFR ( Amer) > 60 Est GFR (Non-Af Amer) 51 L Glucose 129 H Lactic Acid Calcium 8.0 L Urine Color STRAW Urine Appearance CLEAR Urine pH 5.0 Ur Specific [place] 1.006 Urine Protein NEGATIVE Urine Glucose (UA) 50 H Urine Ketones NEGATIVE Urine Blood SMALL H Urine Nitrite NEGATIVE Ur Leukocyte Esterase TRACE H Urine WBC (Auto) 2 Urine RBC (Auto) 1 08/01/18 05:39 WBC RBC Hgb Hct MCV MCH MCHC RDW Plt Count Seg Neutrophils % Lymphocytes % Monocytes % Eosinophils % Basophils % Absolute Neutrophils Absolute Lymphocytes Absolute Monocytes Absolute Eosinophils Absolute Basophils Sodium Potassium Chloride Carbon Dioxide Anion Gap BUN Creatinine Est GFR ( Amer) Est GFR (Non-Af Amer) Glucose Lactic Acid 1.7 Calcium Urine Color Urine Appearance Urine pH Ur Specific [place] Urine Protein Urine Glucose (UA) Urine Ketones Urine Blood Urine Nitrite Ur Leukocyte Esterase Urine WBC (Auto) Urine RBC (Auto) Impressions: Chest X-Ray 07/31/18 02:07 IMPRESSION: No acute cardiopulmonary findings. Abdomen/Pelvis CT 07/31/18 04:19 IMPRESSION: Right nephrolithiasis without hydronephrosis. Assessment & Plan - Diagnosis (1) Sepsis Is this a current diagnosis for this admission?: Yes Plan: Patient was discharged 2 days ago. She had sepsis from UTI and her blood cultures grew E. coli 2/2 bottles. recent urine culture also grew the same. Patient likely had unresolved bacteremia. She also had lactic acidosis long with acute renal failure upon admission. Continue IV ciprofloxacin. Blood cultures drawn. (2) Acute renal failure (ARF) Is this a current diagnosis for this admission?: Yes Plan: Improving. Possibly from septic ATN vs hypotension-related ATN. Continue Iv fluids and antibiotic. (3) Lactic acidosis Is this a current diagnosis for this admission?: Yes Plan: Resolved with IV fluids. (4) Right nephrolithiasis Is this a current diagnosis for this admission?: Yes Plan: No signs of obstruction. She will need outpatient urology ff-up. - Time Time Spent with patient: 25-34 minutes
[2018-08-01] MEDS: INSULIN LISPRO 100 UNIT/ML 3 ML VIAL SUBCUT PRN (22:31)
[2018-08-01] MEDS: GABAPENTIN 300 MG CAPSULE PO PRN (22:36)
[2018-08-02 05:16] LABS: HEMATOCRIT 26.3 % (36.0-47.0); HEMOGLOBIN 9.1 g/dL (12.0-15.5); MEAN CORPUSCULAR HEMOGLOBIN 29.3 pg (27.0-33.4); MEAN CORPUSCULAR HGB CONC 34.5 g/dL (32.0-36.0); MEAN CORPUSCULAR VOLUME 85 fl (80-97); PLATELET COUNT 272 10^3/uL (150-450); RED BLOOD COUNT 3.09 10^6/uL (3.72-5.28); RED CELL DISTRIBUTION WIDTH 14.7 % (11.5-14.0); WHITE BLOOD COUNT 5.6 10^3/uL (4.0-10.5)
[2018-08-02] MEDS: NORMAL SALINE 1000 ML 1,000 ML IV PRN ×2 (05:18→18:45)
[2018-08-02 05:33] LABS: ANION GAP 9 (5-19); BLOOD UREA NITROGEN 12 mg/dL (7-20); CARBON DIOXIDE 26 mmol/L (22-30); CHLORIDE 106 mmol/L (98-107); GLUCOSE 140 mg/dL (75-110); POTASSIUM 4.5 mmol/L (3.6-5.0); SODIUM 141.1 mmol/L (137-145)
[2018-08-02 05:47] LABS: ABSOLUTE LYMPHOCYTES# (MANUAL) 1.9 10^3/uL (0.5-4.7); ABSOLUTE MONOCYTES # (MANUAL) 0.2 10^3/uL (0.1-1.4); ABSOLUTE NEUTROPHILS# (MANUAL) 3.5 10^3/uL (1.7-8.2); BASOPHILS % (MANUAL) 0 % (0-2); EOSINOPHILS % (MANUAL) 1 % (0-6); LYMPHOCYTES % (MANUAL) 34 % (13-45); MONOCYTES % (MANUAL) 3 % (3-13); SEGMENTED NEUTROPHILS % (MAN) 58 % (42-78); SMUDGE CELLS PRESENT; TOTAL CELLS COUNTED 100
[2018-08-02 05:52] LABS: ANISOCYTOSIS SLIGHT; HYPOCHROMASIA SLIGHT; OVALOCYTES SLIGHT; PLATELET COMMENT ADEQUATE; PLATELET GIANT PRESENT; PLATELET LARGE PRESENT; POIKILOCYTOSIS SLIGHT
[2018-08-02 05:53] LABS: METAMYELOCYTES % (MANUAL) 1 % (0)
[2018-08-02 05:54] LABS: PROMYELOCYTES % (MANUAL) 3 % (0)
[2018-08-02] MEDS: HEPARIN SOD (PORCINE) 5,000 UNIT/ML 1 ML SYRINGE SUBCUT SCH ×3 (06:00→22:19)
[2018-08-02] MEDS: BUPROPION HCL 100 MG TABLET PO SCH ×3 (06:10→22:17)
[2018-08-02] MEDS: CIPROFLOXACIN 400 MG/D5W RTU 400 MG/200 ML RTUPB IV SCH ×2 (06:10→17:25)
[2018-08-02] MEDS: INSULIN LISPRO 100 UNIT/ML 3 ML VIAL SUBCUT PRN ×4 (09:18→22:19)
[2018-08-02] MEDS: CARVEDILOL 12.5 MG TABLET PO SCH ×2 (09:18→22:17)
[2018-08-02] MEDS: CLOPIDOGREL BISULFATE 75 MG TABLET PO SCH (09:18)
[2018-08-02] MEDS: DOCUSATE SODIUM 100 MG CAPSULE PO SCH ×2 (09:18→17:24)
[2018-08-02 11:40] LABS: PATH REVIEW PATHOLOGIST REVIEWED
--- NOTE | 2018-08-02 16:31 | PDOC PROGRESS REPORT ---
Subjective Progress Note for:: 08/02/18 Subjective:: DUSTIN MALDONADO is a 58 year old female with a past medical history of diabetes, hypertension, history of CVA, chronic diastolic heart failure, peripheral neuropathy, dyslipidemia, COPD, iron deficiency anemia, anxiety and recent pyelonephritis who was brought in because of increasing weakness. She was recently discharged 2 days ago for sepsis from pyelonephritis with E. coli bacteremia 2/2 bottles. She was hypotensive in the 80s systolic in the ER and was admitted for severe sepsis. No acute event overnight. This morning, patient is not in distress. She says she continues to feel better. No fever or chills. Denies chest pain or SOB. Reason For Visit: SEPSIS,PYELONEPHRITIS Physical Exam Vital Signs: Temp Pulse Resp BP Pulse Ox 98.7 F 90 12 144/61 H 100 08/02/18 15:12 08/02/18 15:12 08/02/18 15:12 08/02/18 15:12 08/02/18 15:12 Intake & Output 08/01/18 08/02/18 08/03/18 06:59 06:59 06:59 Intake Total 4022 3522 518 Output Total 1825 1350 1300 Balance 2197 2172 -782 Weight 156 lb 8.451 oz 149 lb 11.102 oz General appearance: PRESENT: no acute distress, well-developed, well-nourished Head exam: PRESENT: atraumatic, normocephalic Eye exam: PRESENT: conjunctiva pink, EOMI, PERRLA. ABSENT: scleral icterus Ear exam: PRESENT: normal external ear exam Mouth exam: PRESENT: moist, tongue midline Neck exam: ABSENT: carotid bruit, JVD, lymphadenopathy, thyromegaly Respiratory exam: PRESENT: clear to auscultation roderick. ABSENT: rales, rhonchi, wheezes Cardiovascular exam: PRESENT: RRR. ABSENT: diastolic murmur, rubs, systolic murmur Pulses: PRESENT: normal dorsalis pedis pul GI/Abdominal exam: PRESENT: normal bowel sounds, soft. ABSENT: distended, guarding, mass, organolmegaly, rebound, tenderness Rectal exam: PRESENT: deferred Neurological exam: PRESENT: alert, awake, oriented to person, oriented to place , oriented to time, oriented to situation, CN II-XII grossly intact. ABSENT: motor sensory deficit Results Laboratory Results: 08/02/18 04:29 08/02/18 04:29 08/02/18 08/02/18 04:29 04:29 WBC 5.6 RBC 3.09 L Hgb 9.1 L Hct 26.3 L MCV 85 MCH 29.3 MCHC 34.5 RDW 14.7 H Plt Count 272 Seg Neutrophils % Not Reportable Lymphocytes % Not Reportable Monocytes % Not Reportable Eosinophils % Not Reportable Basophils % Not Reportable Absolute Neutrophils Not Reportable Absolute Lymphocytes Not Reportable Absolute Monocytes Not Reportable Absolute Eosinophils Not Reportable Absolute Basophils Not Reportable Sodium 141.1 Potassium 4.5 Chloride 106 Carbon Dioxide 26 Anion Gap 9 BUN 12 Creatinine 0.74 Est GFR ( Amer) > 60 Est GFR (Non-Af Amer) > 60 Glucose 140 H Calcium 8.0 L 07/31/18 21:00 Clean Catch Midstream Urine Culture - Final NO GROWTH 2 DAYS Impressions: Chest X-Ray 07/31/18 02:07 IMPRESSION: No acute cardiopulmonary findings. Abdomen/Pelvis CT 07/31/18 04:19 IMPRESSION: Right nephrolithiasis without hydronephrosis. Assessment & Plan - Diagnosis (1) Sepsis Is this a current diagnosis for this admission?: Yes Plan: Patient was discharged 3 days ago. She had sepsis from UTI and her blood cultures grew E. coli 2/2 bottles. Recent urine culture also grew the same. Patient likely had unresolved bacteremia. She also had lactic acidosis long with acute renal failure upon admission. Continue IV ciprofloxacin. Blood cultures negative so far. Possible discharge tomorrow if blood cultures remain negative. (2) Acute renal failure (ARF) Is this a current diagnosis for this admission?: Yes Plan: Resolved. Possibly from septic ATN vs hypotension-related ATN. Continue IV fluids and antibiotic. (3) Lactic acidosis Is this a current diagnosis for this admission?: Yes Plan: Resolved with IV fluids. (4) Right nephrolithiasis Is this a current diagnosis for this admission?: Yes Plan: No signs of obstruction. She will need outpatient urology ff-up. - Time Time Spent with patient: 15-24 minutes
[2018-08-02] MEDS ORDERED: INSULIN GLARGINE,HUM.REC.ANLOG 300 UNIT/3 ML INSULN.PEN SUBCUT SCH (22:00)
[2018-08-02] MEDS ORDERED: INSULIN GLARGINE,HUM.REC.ANLOG 1,000 UNIT/10 ML UNIT SUBCUT SCH ×2 (22:00)
[2018-08-02] MEDS: GABAPENTIN 300 MG CAPSULE PO PRN (22:24)
[2018-08-03] MEDS: BUPROPION HCL 100 MG TABLET PO SCH (05:44)
[2018-08-03] MEDS: CIPROFLOXACIN 400 MG/D5W RTU 400 MG/200 ML RTUPB IV SCH (05:46)
[2018-08-03] MEDS: HEPARIN SOD (PORCINE) 5,000 UNIT/ML 1 ML SYRINGE SUBCUT SCH (06:21)
[2018-08-03 08:17] VITALS: BP 132/64
[2018-08-03] MEDS: INSULIN LISPRO 100 UNIT/ML 3 ML VIAL SUBCUT PRN (08:22)
[2018-08-03] MEDS: DOCUSATE SODIUM 100 MG CAPSULE PO SCH (09:20)
[2018-08-03] MEDS: CARVEDILOL 12.5 MG TABLET PO SCH (09:20)
[2018-08-03] MEDS: CLOPIDOGREL BISULFATE 75 MG TABLET PO SCH (09:20)
--- NOTE | 2018-08-03 15:32 | PDOC DISCHARGE SUMMARY ---
General - Admit/Disc Date/PCP Admission Date/Primary Care Provider: 07/31/18 04:32 KATT RAMSEY PA-C Discharge Date: 08/03/18 - Discharge Diagnosis (1) Sepsis Is this a current diagnosis for this admission?: Yes (2) Acute renal failure (ARF) Is this a current diagnosis for this admission?: Yes (3) Lactic acidosis Is this a current diagnosis for this admission?: Yes (4) Right nephrolithiasis Is this a current diagnosis for this admission?: Yes (5) Pyelonephritis Is this a current diagnosis for this admission?: Yes - Additional Information Resuscitation Status: Full Code Discharge Diet: Cardiac, Diabetic Discharge Activity: Activity As Tolerated, Balance Activity w/Rest Prescriptions: Ciprofloxacin HCl [Cipro 500 mg Tablet] 500 mg PO BID 10 Days #20 tablet Home Medications: Albuterol Sulfate [Proair HFA Inhalation Aerosol 8.5 gm MDI] 2 puff IH Q6HP PRN 07/25/18 Bupropion HCl [Wellbutrin Xl 150 mg 24hr Tablet] 150 mg PO DAILY 07/25/18 Buspirone HCl [Buspar 5 mg Tablet] 7.5 mg PO DAILY 07/25/18 Carvedilol [Coreg 12.5 mg Tablet] 12.5 mg PO Q12 07/25/18 Clopidogrel Bisulfate [Plavix 75 mg Tablet] 75 mg PO DAILY 07/25/18 Furosemide [Lasix 20 mg Tablet] 20 mg PO DAILY 07/25/18 Gabapentin [Neurontin 300 mg Capsule] 300 mg PO Q8HP PRN 07/25/18 Lisinopril [Zestril] 5 mg PO DAILY 07/25/18 Meclizine HCl [Antivert 12.5 mg Tablet] 12.5 mg PO TIDP PRN 07/25/18 Mometasone/Formoterol [Dulera 100 Mcg/5 Mcg Inhaler] 2 puff IH Q12 07/25/18 Montelukast Sodium [Singulair 10 mg Tablet] 10 mg PO QPM 07/25/18 Sitagliptin Phosphate [Januvia] 100 mg PO DAILY 07/25/18 Clopidogrel Bisulfate [Plavix 75 mg Tablet] 75 mg PO DAILY tablet 07/29/18 Cyclobenzaprine HCl [Flexeril 10 mg Tablet] 5 mg PO Q8 10 Days #30 tablet Aspirin [Adult Aspirin] 81 mg PO DAILY 07/31/18 Atorvastatin Calcium [Lipitor 80 mg Tablet] 80 mg PO DAILY 07/31/18 Escitalopram Oxalate [Lexapro 10 mg Tablet] 10 mg PO DAILY 07/31/18 Ferrous Sulfate [Feosol 325 mg Tablet] 325 mg PO DAILY 07/31/18 Acetaminophen [Tylenol 325 mg Tablet] 650 mg PO Q4HP PRN tablet 08/03/18 Ciprofloxacin HCl [Cipro 500 mg Tablet] 500 mg PO BID 10 Days #20 tablet Insulin Glargine,Hum.rec.anlog [Lantus Insulin 100 Unit/mL] 8 units SQ QHS #0 Metformin HCl [Glucophage] 500 mg PO BID #0 08/03/18 History of Present Illness History of Present Illness: Admitting hospitalist's H&P: DUSTIN MALDONADO is a 58 year old female with a past medical history of diabetes, hypertension, CVA without residual, peripheral neuropathy, dyslipidemia, COPD, iron deficiency anemia, anxiety and recent pyelonephritis. Patient was discharged 48 hours ago. She recently had E. coli bacteremia and UTI. In the emergency room she is found to have hypotension with a systolic blood pressure in the 80s, acute renal failure and lactic acidosis. She started on IV fluid challenge, and IV antibiotics and referred to the hospitalist for admission. Hospital Course Hospital Course: DUSTIN MALDONADO is a 58 year old female with a past medical history of diabetes, hypertension, history of CVA, chronic diastolic heart failure, peripheral neuropathy, dyslipidemia, COPD, iron deficiency anemia, anxiety and recent pyelonephritis who was brought in because of increasing weakness. She was recently discharged 2 days ago for sepsis from pyelonephritis with E. coli bacteremia 2/2 bottles. She was hypotensive in the 80s systolic in the ER and was admitted for severe sepsis. She was started on IV antibiotics. She was started on IV ciprofloxacin to which is a recent blood and urine isolate was sensitive to. She was also given IV fluids for lactic acidosis. Her lactic acidosis and acute renal failure did significantly improve with IV fluids and antibiotics. Her acute kidney failure did resolve and her creatinine came back to baseline. Patient did significantly felt better and a day prior to discharge she said she was back to her baseline. Also noted that patient's recent A1c was very well controlled at 6.4. She is on multiple oral hypoglycemics and Lantus at home. She says she does not really regularly check her sugars at home. On discharge, patient was instructed to discontinue her glipizide. Also instructed to decrease her metformin from 1000 mg twice daily to 500 twice twice daily. She will continue her Januvia. She was also instructed to decrease her Lantus to 8 units at bedtime. She was strongly recommended to continue checking her sugars twice a day at home to make sure she is not going to hypoglycemia. She will follow-up with her PCP next week. She will be prescribed on ciprofloxacin for 10 more days. Her repeat blood cultures and urine cultures came back negative. Her CT of the abdomen did show she has right sided nephrolithiasis without signs of obstruction. No perinephric stranding. She was given outpatient urology referral. Physical Exam Vital Signs: Temp Pulse Resp BP Pulse Ox 98.3 F 98 15 132/64 H 100 08/03/18 12:28 08/03/18 12:28 08/03/18 12:28 08/03/18 12:28 08/03/18 12:28 Intake & Output 08/02/18 08/03/18 08/04/18 06:59 06:59 06:59 Intake Total 3522 1786 350 Output Total 1350 1900 600 Balance 2172 -114 -250 Weight 149 lb 11.102 oz 148 lb 9.465 oz General appearance: PRESENT: no acute distress, well-developed, well-nourished Head exam: PRESENT: atraumatic, normocephalic Eye exam: PRESENT: conjunctiva pink, EOMI, PERRLA. ABSENT: scleral icterus Ear exam: PRESENT: normal external ear exam Mouth exam: PRESENT: moist, tongue midline Neck exam: ABSENT: carotid bruit, JVD, lymphadenopathy, thyromegaly Respiratory exam: PRESENT: clear to auscultation roderick. ABSENT: rales, rhonchi, wheezes Cardiovascular exam: PRESENT: RRR. ABSENT: diastolic murmur, rubs, systolic murmur Pulses: PRESENT: normal dorsalis pedis pul GI/Abdominal exam: PRESENT: normal bowel sounds, soft. ABSENT: distended, guarding, mass, organolmegaly, rebound, tenderness Rectal exam: PRESENT: deferred Neurological exam: PRESENT: alert, awake, oriented to person, oriented to place , oriented to time, oriented to situation, CN II-XII grossly intact. ABSENT: motor sensory deficit Results Laboratory Results: 08/02/18 04:29 08/02/18 04:29 Impressions: Chest X-Ray 07/31/18 02:07 IMPRESSION: No acute cardiopulmonary findings. Abdomen/Pelvis CT 07/31/18 04:19 IMPRESSION: Right nephrolithiasis without hydronephrosis. Qualifiers - * PATIENT BEING DISCHARGED WITH ANY OF THE FOLLOWING DIAGNOSIS: No
== END 2018-08-03 13:20 | disposition home or self-care (01) | DRG 872 ==
LOC: ER 01:32 → EH 04:32 → 3W 11:49
PROVIDERS: ADMIT Internal Medicine; ATTEND Internal Medicine
DX: A41.9 Sepsis, unspecified organism (principal); N17.9 Acute kidney failure, unspecified; N12 Tubulo-interstitial nephritis, not specified as acute or chronic; I50.32 Chronic diastolic (congestive) heart failure; E11.9 Type 2 diabetes mellitus without complications; Z86.73 Personal history of transient ischemic attack (TIA), and cerebral infarction without residual deficits; B96.20 Unspecified Escherichia coli [E. coli] as the cause of diseases classified elsewhere; E11.42 Type 2 diabetes mellitus with diabetic polyneuropathy; R65.20 Severe sepsis without septic shock; E78.5 Hyperlipidemia, unspecified; N20.0 Calculus of kidney; D50.9 Iron deficiency anemia, unspecified; F41.9 Anxiety disorder, unspecified; I11.0 Hypertensive heart disease with heart failure; Z83.3 Family history of diabetes mellitus; Z83.438 Family history of other disorder of lipoprotein metabolism and other lipidemia; Z82.49 Family history of ischemic heart disease and other diseases of the circulatory system; Z79.51 Long term (current) use of inhaled steroids; Z79.4 Long term (current) use of insulin; Z79.899 Other long term (current) drug therapy; Z79.82 Long term (current) use of aspirin
CPT/HCPCS: 36415; 71045; 74176; 80048; 80053; 81001; 82533; 82803; 82962; 83605; 84443; 85025; 87040; 87086; 93005; 93010; 96365; 99291; 99292; J0696; J0744; J1815; J3490; J7030

== ENCOUNTER 2018-11-05 16:34 | Inpatient (IN) | payer MEDICARE, OTHER ==
--- NOTE | 2018-11-05 18:41 | ER Document Report ---
ED Medical Screen (RME) - General Chief Complaint: High Blood Sugar Stated Complaint: BLOOD SUGAR ISSUES Time Seen by Provider: 11/05/18 18:27 Primary Care Provider: KATT RAMSEY PA-C [Primary Care Provider] - Follow up as needed Mode of Arrival: Wheelchair Information source: Patient, Relative, [facility] Records Notes: 58-year-old female with type 1 diabetes, noncompliant with her medication, congestive heart failure, hyperlipidemia, hypertension, previous CVA, depression, anxiety presents with her son with complaint of left flank pain. Son reports that the patient is refusing to eat, take her medications and has been off of her psychiatric medications for 1 week. Patient starts to mention something about not wanting to lose her leg and when I took off her sock she had a gangrenous black fourth and fifth foul-smelling toe. Accu-Chek is 407. Echocardiogram performed in 2016 showed a normal ejection fraction. Son also reports a recent fall that was unwitnessed. Patient refused at that time to be taken to the hospital. I have greeted and performed a rapid initial assessment of this patient. A comprehensive ED assessment and evaluation of the patient, analysis of test results and completion of medical decision making process we will be contacted by additional ED providers. PHYSICAL EXAMINATION: Vital signs reviewed GENERAL: Ill-appearing LUNGS: No respiratory distress Musculoskeletal: Gangrenous right foot NEUROLOGICAL: Normal speech, normal gait. PSYCH: Tearful SKIN: Gangrenous black toes on the right foot. TRAVEL OUTSIDE OF THE [place] IN LAST 30 DAYS: No - HPI Onset: Other Quality of pain: Achy, Throbbing Severity: Moderate Associated Symptoms: Body/muscle aches, Nausea, Weakness Exacerbated by: Movement Relieved by: Denies Similar symptoms previously: No Recently seen / treated by doctor: No - Related Data Smoking: Cigarettes Allergies/Adverse Reactions: No Known Allergies Allergy (Verified 11/05/18 18:18) Past Medical History - Past Medical History Cardiac Medical History: Reports: Hx Congestive Heart Failure, Hx Hypercholesterolemia, Hx Hypertension Pulmonary Medical History: Reports: Hx Asthma Neurological Medical History: Reports: Hx Cerebrovascular Accident Endocrine Medical History: Reports: Hx Diabetes Mellitus Type 1, Hx Diabetes Mellitus Type 2 Renal/ Medical History: Denies: Hx Peritoneal Dialysis Psychiatric Medical History: Reports: Hx Depression Past Surgical History: Reports: Hx Section, Hx Vascular Surgery - Angio - Immunizations Hx Diphtheria, Pertussis, Tetanus Vaccination: Yes Physical Exam - Vital signs Vitals: Temp Pulse Resp BP Pulse Ox 99.1 F 108 H 16 142/72 H 99 11/05/18 16:43 11/05/18 16:43 11/05/18 16:43 11/05/18 16:43 11/05/18 16:43 Course - Vital Signs Vital signs: Temp Pulse Resp BP Pulse Ox 99.1 F 108 H 16 142/72 H 99 11/05/18 16:43 11/05/18 16:43 11/05/18 16:43 11/05/18 16:43 11/05/18 16:43 Doctor's Discharge - Discharge Referrals: KATT RAMSEY PA-C [Primary Care Provider] - Follow up as needed
--- NOTE | 2018-11-05 19:18 | ER Document Report ---
ED Blood Sugar Problem - General Chief Complaint: High Blood Sugar Stated Complaint: BLOOD SUGAR ISSUES Time Seen by Provider: 11/05/18 19:18 Mode of Arrival: Wheelchair Information source: Patient, Relative Notes: HISTORY OF PRESENT ILLNESS: Patient is a 58-year-old female with a past medical history of uncontrolled diabetes, hypertension, and several other chronic conditions who presents with abdominal pain with nausea and increased blood glucose. Patient does report feeling weak lately and has not taken her medications and "several days." Of note, family of the patient report they noticed "two of her toes on her foot are black." Location: Abdomen Onset: 1 day ago Alleviation: None Provocation: None Quality: Aching Radiation: Global Severity: Moderate Timing: Constant History of abdominal surgery: None Associated symptoms: Weakness, no fevers or chills, no chest pain or shortness of breath Last bowel movement: Today REVIEW OF SYSTEMS: CONSTITUTIONAL : Denies fever or chills, no sweats. Denies recent illness. EENT: Denies eye, ear, throat, or mouth pain or symptoms. Denies nasal or sinus congestion. CARDIOVASCULAR: Denies chest pain. Denies swelling of the legs. RESPIRATORY: Denies cough, cold, or chest congestion. Denies shortness of breath or difficulty breathing. Denies wheezing. GASTROINTESTINAL: Positive for abdominal pain. Positive for nausea but no vomiting. Denies constipation. GENITOURINARY: Denies difficulty urinating, painful urination, burning, frequency, or blood in urine. FEMALE GENITOURINARY: Denies vaginal bleeding, abnormal or irregular periods. MUSCULOSKELETAL: Denies neck or back pain or joint pain or swelling. SKIN: Denies rash or skin lesions. HEMATOLOGIC : Denies easy bruising or bleeding. LYMPHATIC: Denies swollen, enlarged glands. NEUROLOGICAL: Denies altered mental status or loss of consciousness. Denies headache. Denies weakness or paralysis or loss of use of either side. Denies problems with gait or speech. Denies sensory or motor loss. PSYCHIATRIC: Denies anxiety or stress or depression. All other systems reviewed and negative. PHYSICAL EXAMINATION: GENERAL: Tearful-appearing, well-nourished and in no acute distress. HEAD: Atraumatic, normocephalic. No scalp deformity, depression, or crepitance. EYES: Pupils are 3 mm and equal/round/reactive to light, extraocular movements intact, sclera anicteric, conjunctiva are normal. ENT: Nares patent bilaterally, oropharynx. Moist mucous membranes. No tonsil hypertrophy. NECK: Normal range of motion, supple without lymphadenopathy. LUNGS: Breath sounds present, equal, and clear to auscultation bilaterally. No wheezes, rales, or rhonchi. HEART: Regular rate and rhythm without murmurs, rubs, or gallops. 2+ peripheral pulses. Normal capillary refill. ABDOMEN: Soft, nontender, nondistended. Normoactive bowel sounds. No guarding, no rebound. No masses appreciated. BACK: Normal contour, no midline tenderness. Rectal exam deferred. GENITAL/PELVIC: Deferred. EXTREMITIES: The 3rd-4th toes on the right foot appear necrotic with friable ti ssue that is erythematous surrounding the area. Normal range of motion, no pitting or edema. No cyanosis. NEUROLOGICAL: No focal neurological deficits. Moves all extremities spontaneously and on command. PSYCH: Normal mood, normal affect. No suicidal thoughts/ideations. No homocidal thoughts/ideations. No hallucinations. SKIN: Warm, dry, normal turgor, no rashes or lesions noted. ASSESSMENT AND PLAN: This patient is a 58-year-old female who presents with abdominal pain with nausea and likely wet gangrene of the third and fourth toes on the right foot. Also concern for DKA secondary to cellulitis of the right foot. 1. Will obtain labs, urine, blood cultures, lactic acid, give IV fluids with insulin as well as vancomycin and cefepime. 2. Will consult surgery and admit to the hospitalist. TRAVEL OUTSIDE OF THE [place] IN LAST 30 DAYS: No - Related Data Allergies/Adverse Reactions: No Known Allergies Allergy (Verified 11/05/18 18:18) Past Medical History - General Information source: Patient, Relative, [facility] Records - Social History Smoking Status: Former Smoker Chew tobacco use (# tins/day): No Frequency of alcohol use: None Drug Abuse: None Lives with: Family Family History: DM, Hyperlipidemia, Hypertension Patient has suicidal ideation: No Patient has homicidal ideation: No - Past Medical History Cardiac Medical History: Reports: Hx Congestive Heart Failure, Hx Hypercholesterolemia, Hx Hypertension Pulmonary Medical History: Reports: Hx Asthma EENT Medical History: Reports: None Neurological Medical History: Reports: Hx Cerebrovascular Accident Endocrine Medical History: Reports: Hx Diabetes Mellitus Type 1, Hx Diabetes Mellitus Type 2 Renal/ Medical History: Reports: None. Denies: Hx Peritoneal Dialysis Malignancy Medical History: Reports: None GI Medical History: Reports: None Musculoskeletal Medical History: Reports Hx Arthritis Skin Medical History: Reports None Psychiatric Medical History: Reports: Hx Depression Traumatic Medical History: Reports: None Infectious Medical History: Reports: None Past Surgical History: Reports: Hx Section, Hx Vascular Surgery - Angio - Immunizations Immunizations up to date: Yes Hx Diphtheria, Pertussis, Tetanus Vaccination: Yes History of Influenza Vaccine for 05/2017 - 10/2017 Season: Yes Hx Pneumococcal Vaccination: 04/27/15 Physical Exam - Vital signs Vitals: Temp Pulse Resp BP Pulse Ox 99.1 F 108 H 16 142/72 H 99 11/05/18 16:43 11/05/18 16:43 11/05/18 16:43 11/05/18 16:43 11/05/18 16:43 Course - Re-evaluation Re-evalutation: 11/05/18 21:03 Blood work shows elevated white blood cell count of 17,000, patient does have evidence of early/mild DKA so was given IV fluids with insulin. She also was given IV vancomycin and cefepime for cellulitis and likely dry gangrene to the right foot. She will be admitted to the hospital. - Vital Signs Vital signs: Temp Pulse Resp BP Pulse Ox 99.3 F 98 20 117/48 L 100 11/06/18 02:01 11/06/18 02:01 11/06/18 02:01 11/06/18 02:01 11/06/18 02:01 - Laboratory Result Diagrams: 11/05/18 19:07 11/06/18 02:14 Laboratory results interpreted by me: 11/05/18 11/05/18 11/05/18 18:34 19:07 19:07 WBC 16.9 H RBC 3.22 L Hgb 9.5 L Hct 28.0 L Plt Count 500 H Seg Neutrophils % 88.4 H Lymphocytes % 6.3 L Absolute Neutrophils 15.0 H PT APTT Sodium 130.4 L Potassium 5.6 H Chloride 93 L Carbon Dioxide 18 L Glucose 443 H* POC Glucose 406 H* Iron TIBC Ferritin AST 8 L ALT < 6 L Urine Protein Urine Glucose (UA) Urine Ketones Urine Blood Urine Nitrite Ur Leukocyte Esterase 11/05/18 11/05/18 11/05/18 19:07 19:07 20:50 WBC RBC Hgb Hct Plt Count Seg Neutrophils % Lymphocytes % Absolute Neutrophils PT 16.5 H APTT 47.4 H Sodium Potassium Chloride Carbon Dioxide Glucose POC Glucose Iron 22.5 L TIBC 220 L Ferritin 444.00 H AST ALT Urine Protein 30 H Urine Glucose (UA) >=500 H Urine Ketones 20 H Urine Blood SMALL H Urine Nitrite POSITIVE H Ur Leukocyte Esterase MODERATE H - Diagnostic Test Radiology reviewed: Image reviewed, Reports reviewed - EKG Interpretation by Me EKG shows normal: Sinus rhythm Rate: Normal Rhythm: NSR [place]/QRS: No: Right axis deviation, Left axis deviation, RBBB, LBBB, IVCD, LAHB/ LAFB, LPHB/LPFB, Bifasicular block Voltage: No: Increased voltage, Consistant with LVH, Decreased voltage, Throughout, Limb leads P Waves: No: NUNO, LAE, Absent, AV Dissociation, Other Heart block present: No: 1st Degree, Mobitz 1, Mobitz 2, CHB (3rd degree block) When compared to previous EKG there are: No significant change - Consults Dr. Macario Time consulted: 21:13 - will admit Consulted provider: will come to ER Dr. Morin Time consulted: 21:17 Consulted provider: will come to ER Critical Care Note - Critical Care Note Total time excluding time spent on procedures (mins): 90 Comments: Critical care time spent obtaining history from patient or surrogate, d iscussions with consultants, development of treatment plan with patient or surrogate, evaluation of patient's response to treatment, examination of patient, ordering and performing treatments and interventions, ordering and review of laboratory studies, re-evaluation of patient's condition, ordering and review of radiographic studies and review of old charts. Discharge - Discharge Clinical Impression: Cellulitis and abscess of foot, Dry gangrene Diabetic ketoacidosis associated with type 1 diabetes mellitus Qualifiers: Diabetes mellitus complication detail: without coma Qualified Code(s): E10.10 - Type 1 diabetes mellitus with ketoacidosis without coma Condition: Stable Disposition: ADMITTED INPATIENT Admitting Provider: Hospitalist Unit Admitted: [facility]
[2018-11-05 19:23] LABS: ABSOLUTE BASOPHILS # (AUTO) 0.1 10^3/uL (0.0-0.2); ABSOLUTE EOSINOPHILS # (AUTO) 0.1 10^3/uL (0.0-0.6); ABSOLUTE LYMPHOCYTES (AUTO) 1.1 10^3/uL (0.5-4.7); ABSOLUTE MONOCYTES (AUTO) 0.8 10^3/uL (0.1-1.4); BASOPHILS % (AUTO) 0.3 % (0-2); EOSINOPHILS % (AUTO) 0.5 % (0-6); HEMOGLOBIN 9.5 g/dL (12.0-15.5); LYMPHOCYTES % (AUTO) 6.3 % (13-45); MEAN CORPUSCULAR HEMOGLOBIN 29.4 pg (27.0-33.4); MEAN CORPUSCULAR HGB CONC 33.9 g/dL (32.0-36.0); MEAN CORPUSCULAR VOLUME 87 fl (80-97); MONOCYTES % (AUTO) 4.5 % (3-13); PLATELET COUNT 500 10^3/uL (150-450); RED BLOOD COUNT 3.22 10^6/uL (3.72-5.28); RED CELL DISTRIBUTION WIDTH 13.9 % (11.5-14.0); SEGMENTED NEUTROPHILS % (AUTO) 88.4 % (42-78); TOTAL CELLS COUNTED % (AUTO) 100 %; WHITE BLOOD COUNT 16.9 10^3/uL (4.0-10.5)
[2018-11-05 19:24] LABS: VENOUS BLOOD BASE EXCESS -3.9 mmol/L; VENOUS BLOOD HCO3 22.3 mmol/L (20-32); VENOUS BLOOD PCO2 45.7 mmHg (35-63); VENOUS BLOOD PH 7.31 (7.30-7.42)
[2018-11-05 19:29] LABS: INTERNATIONAL RATION (INR) 1.27; PROTHROMBIN TIME 16.5 SEC (11.4-15.4)
[2018-11-05 19:30] LABS: PARTIAL THROMBOPLASTIN TIME 47.4 SEC (23.5-35.8)
[2018-11-05 19:43] LABS: ALANINE AMINOTRANSFERASE < 6 U/L (9-52); ALKALINE PHOSPHATASE 111 U/L (38-126); ANION GAP 19 (5-19); ASPARTATE AMINO TRANSFERASE 8 U/L (14-36); BILIRUBIN,DIRECT 0.4 mg/dL (0.0-0.4); BILIRUBIN,TOTAL 0.9 mg/dL (0.2-1.3); BLOOD UREA NITROGEN 20 mg/dL (7-20); CALCIUM 10.1 mg/dL (8.4-10.2); CARBON DIOXIDE 18 mmol/L (22-30); CHLORIDE 93 mmol/L (98-107); POTASSIUM 5.6 mmol/L (3.6-5.0); SODIUM 130.4 mmol/L (137-145); TOTAL PROTEIN 7.8 g/dL (6.3-8.2)
--- NOTE | 2018-11-05 19:55 | RADIOLOGY REPORT (SQ) ---
EXAM DESCRIPTION: CT HEAD WITHOUT COMPLETED DATE/TIME: 11/05/2018 7:40 pm REASON FOR STUDY: fall COMPARISON: 06/14/2018 TECHNIQUE: Axial images acquired through the brain without intravenous contrast. Images reviewed wi th bone, brain and subdural windows. Additional sagittal and coronal reconstructions were generated. Images stored on PACS. All CT scanners at this facility use dose modulation, iterative reconstruction, and/or weight based d osing when appropriate to reduce radiation dose to as low as reasonably achievable (ALARA). [facility]: Dose Right [facility]: CareDose [facility]: Dose Right [facility]: Teradose 4D [facility]: [employer] RADIATION DOSE: CT Rad equipment meets quality standard of care and radiation dose reduction techniq ues were employed. CTDIvol: 53.2 mGy. DLP: 911 mGy-cm. mGy. LIMITATIONS: None. FINDINGS: VENTRICLES: Normal size and contour. 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 No hemorrhage. No mass. No midline shift. Normal weiss/whit e matter differentiation. No areas of low density in the white matter. CEREBELLUM: No masses. No hemorrhage. No alteration of density. No evidence for acute infarction. EXTRAAXIAL SPACES: No fluid collections. No masses. ORBITS AND GLOBE: No intra- or extraconal masses. Normal contour of globe without masses. CALVARIUM: No fracture. PARANASAL SINUSES: No fluid or mucosal thickening. SOFT TISSUES: No mass or hematoma. OTHER: No other significant finding. IMPRESSION: Stable left parietal infarction. No acute intracranial imaging findings. EVIDENCE OF ACUTE STROKE: NO. COMMENT: Quality ID # [id number]: Final reports with documentation of one or more dose reduction techniques (e.g., Automated exposure control, adjustment of the mA and/or kV according to patient size, use of iterative reconstruction technique) TECHNICAL DOCUMENTATION: JOB ID: [id number] [employer]- All Rights Reserved Reading location - IP/workstation name: [email or web address]
[2018-11-05 19:56] LABS: GLUCOSE 443 mg/dL (75-110)
--- NOTE | 2018-11-05 20:04 | RADIOLOGY REPORT (SQ) ---
EXAM DESCRIPTION: XR RIBS UNILATERAL WITH CHEST COMPLETED DATE/TME: 11/05/2018 18:44 CLINICAL HISTORY: 58 years, Female, fall Findings: The heart is borderline enlarged. Aorta is within normal limits. No consolidation or pleural effusion. No pulmonary edema or pneumothorax. There is no evidence for displaced left rib fracture. No pneumothorax. No pleural effusions. IMPRESSION: No evidence for left rib fracture.
--- NOTE | 2018-11-05 20:06 | RADIOLOGY REPORT (SQ) ---
EXAM DESCRIPTION: XR FOOT 3 OR MORE VIEWS COMPLETED DATE/TME: 11/05/2018 18:39 CLINICAL HISTORY: 58 years, Female, Gangrenous foot Findings: Bony alignment is anatomic. There is subcutaneous gas noted in the midfoot and forefoot in both the dorsal and plantar subcutaneous tissues. No erosive changes are noted in the bones. There is no fracture noted. Moderate diffuse vascular calcification is noted. IMPRESSION: Subcutaneous gas in the soft tissues of the right foot in the midfoot and forefoot. This is suspicious for necrotic infection. Correlate clinically.
[2018-11-05] MEDS ORDERED: VANCOMYCIN HCL INJ 1000 MG VIAL IV ONE (20:17)
[2018-11-05] MEDS ORDERED: NORMAL SALINE 1000 ML 1,000 ML IV ONE (20:17)
[2018-11-05] MEDS ORDERED: INSULIN REG, HUMAN 100 UNIT/ML 3 ML VIAL (PYX) IV ONE (20:17)
[2018-11-05] MEDS ORDERED: CEFEPIME 1 GM/D5W RTU 1 GM/50 ML RTUPB IV ONE (20:17)
[2018-11-05 21:08] LABS: APPEARANCE,URINE CLOUDY; BILIRUBIN,URINE NEGATIVE (NEGATIVE); COLOR,URINE YELLOW; GLUCOSE, URINE >=500 mg/dL (NEGATIVE); KETONES,URINE 20 mg/dL (NEGATIVE); LEUKOCYTE ESTERASE,URINE MODERATE (NEGATIVE); NITRITE,URINE POSITIVE (NEGATIVE); PROTEIN,URINE 30 mg/dL (NEGATIVE); URINE SPECIFIC GRAVITY 1.021; UROBILINOGEN,URINE NEGATIVE mg/dL (<2.0)
[2018-11-05] MEDS ORDERED: IPRATROPIUM/ALBUTEROL 0.5-2.5 MG/3 ML AMPUL NEB PRN (21:16)
[2018-11-05] MEDS ORDERED: DEXTROSE 40% GEL 15 GM TUBE PO PRN ×2 (21:16)
[2018-11-05] MEDS ORDERED: MAGNESIUM HYDROXIDE SUSP 30 ML UDCUP PO PRN (21:16)
[2018-11-05] MEDS ORDERED: NORMAL SALINE 100 ML with INSULIN REGULAR, HUMAN 100 UNIT IV PRN ×2 (21:16)
[2018-11-05] MEDS ORDERED: MAG HYDROX/AL HYDROX/SIMETH SUSP 30 ML UDCUP PO PRN (21:16)
[2018-11-05] MEDS ORDERED: DEXTROSE 50%-WATER 25 GM/50 ML DISP.SYRIN IV PRN ×2 (21:16)
[2018-11-05] MEDS ORDERED: GLUCAGON,HUMAN RECOMB 1 MG INJ IM PRN (21:16)
[2018-11-05] MEDS ORDERED: VANCOMYCIN HCL 0 MG in DEXTROSE 5%-WATER 250 ML IV NR (21:30)
[2018-11-05] MEDS ORDERED: NORMAL SALINE 1000 ML 2,000 ML IV PRN (21:30)
[2018-11-05 21:43] LABS: ABSOLUTE RETICS # 0.039 10^6/uL (0.028-0.122); RETICULOCYTE COUNT (AUTO) 1.22 % (0.66-2.85)
[2018-11-05 21:47] LABS: IRON(TIBC) 22.5 ug/dL (37-170)
[2018-11-05] MEDS: HEPARIN SOD (PORCINE) 5,000 UNIT/ML 1 ML SYRINGE SUBCUT SCH (21:58)
[2018-11-05] MEDS ORDERED: VANCOMYCIN HCL 1,000 MG in DEXTROSE 5%-WATER 250 ML IV SCH (22:00)
--- NOTE | 2018-11-05 22:10 | PDOC CONSULTATION ---
Consultation Consult Date: 11/05/18 Consult reason:: right foot infection. dka History of Present Illness Admission Date/PCP: 11/05/18 21:26 KATT RAMSEY PA-C History of Present Illness: DUSTIN MALDONADO is a 58 year old female with diabetes, hx of copd, htn and cva presents iwth rt sided flank pain.\ upon exam by er physician wet gangrene noted on rt foot pt states it has been like that for a number of days but she did not come to er because she was afraid of loosing her foot. c/o chills, nausea, vomiting. has not taken her meds for a couple of days Past Medical History Cardiac Medical History: Reports: Congestive Heart Failure, Hyperlipidema, Hypertension Pulmonary Medical History: Reports: Asthma EENT Medical History: Reports: None Endocrine Medical History: Reports: Diabetes Mellitus Type 1, Diabetes Mellitus Type 2 Renal/ Medical History: Reports: None Malignancy Medical History: Reports: None GI Medical History: Reports: None Musculoskeltal Medical History: Reports: Arthritis Skin Medical History: Reports: None Psychiatric Medical History: Reports: Depression Traumatic Medical History: Reports: None Hematology: Reports: Anemia Infectious Medical History: Reports: None Past Surgical History Past Surgical History: Reports: Section, Vascular Surgery - Angio Social History Lives with: Family Smoking Status: Former Smoker Frequency of Alcohol Use: None Hx Recreational Drug Use: No Drugs: None Hx Prescription Drug Abuse: No Family History Family History: DM, Hyperlipidemia, Hypertension Parental Family History Reviewed: No Children Family History Reviewed: No Sibling(s) Family History Reviewed.: No Medication/Allergy Allergies/Adverse Reactions: No Known Allergies Allergy (Verified 11/05/18 18:18) Review of Systems Constitutional: PRESENT: anorexia, chills, fatigue, fever(s), weakness Nose, Mouth, and Throat: PRESENT: headache(s) Cardiovascular: PRESENT: other - denies Respiratory: PRESENT: other - denies sob Musculoskeletal: PRESENT: back pain Integumentary: PRESENT: pruritus Psychiatric: PRESENT: anxiety Endocrine: PRESENT: flushing, polydipsia Hematologic/Lymphatic: PRESENT: easy bleeding Physical Exam Vital Signs: Temp Pulse Resp BP Pulse Ox 99.1 F 108 H 12 109/93 H 98 11/05/18 16:43 11/05/18 16:43 11/05/18 19:16 11/05/18 19:16 11/05/18 19:16 Intake & Output 11/04/18 11/05/18 11/06/18 06:59 06:59 06:59 Intake Total 1350 Balance 1350 Weight 61.7 kg General appearance: PRESENT: mild distress Head exam: PRESENT: atraumatic Eye exam: PRESENT: EOMI Mouth exam: PRESENT: dry mucosa Teeth exam: PRESENT: poor dentation Neck exam: PRESENT: full ROM Respiratory exam: PRESENT: clear to auscultation roderick Cardiovascular exam: PRESENT: RRR Pulses: PRESENT: +1 pedal pulses bilateral Vascular exam: PRESENT: normal capillary refill GI/Abdominal exam: PRESENT: soft Rectal exam: PRESENT: deferred Extremities exam: PRESENT: other - rt foot with necrotic gangrene of the 4tha and 5th toes extending to distal 3rd of forefoot with drainage of pus min cellulitis Neurological exam: PRESENT: alert, awake, oriented to time, oriented to situation Psychiatric exam: PRESENT: anxious Skin exam: PRESENT: dry Results Laboratory Results: 11/05/18 19:07 11/05/18 19:07 11/05/18 11/05/18 11/05/18 19:07 19:07 19:07 WBC 16.9 H RBC 3.22 L Hgb 9.5 L Hct 28.0 L MCV 87 MCH 29.4 MCHC 33.9 RDW 13.9 Plt Count 500 H Seg Neutrophils % 88.4 H Lymphocytes % 6.3 L Monocytes % 4.5 Eosinophils % 0.5 Basophils % 0.3 Absolute Neutrophils 15.0 H Absolute Lymphocytes 1.1 Absolute Monocytes 0.8 Absolute Eosinophils 0.1 Absolute Basophils 0.1 Retic Count (auto) Absolute Retic VBG pH 7.31 VBG pCO2 45.7 VBG HCO3 22.3 VBG Base Excess -3.9 Sodium 130.4 L Potassium 5.6 H Chloride 93 L Carbon Dioxide 18 L Anion Gap 19 BUN 20 Creatinine 0.94 Est GFR ( Amer) > 60 Est GFR (Non-Af Amer) > 60 Glucose 443 H* Lactic Acid Calcium 10.1 Total Bilirubin 0.9 AST 8 L ALT < 6 L Alkaline Phosphatase 111 Total Protein 7.8 Albumin 4.0 Urine Color Urine Appearance Urine pH Ur Specific [place] Urine Protein Urine Glucose (UA) Urine Ketones Urine Blood Urine Nitrite Ur Leukocyte Esterase Urine WBC (Auto) Urine RBC (Auto) Blood Type Antibody Screen 11/05/18 11/05/18 11/05/18 19:07 20:00 20:00 WBC RBC Hgb Hct MCV MCH MCHC RDW Plt Count Seg Neutrophils % Lymphocytes % Monocytes % Eosinophils % Basophils % Absolute Neutrophils Absolute Lymphocytes Absolute Monocytes Absolute Eosinophils Absolute Basophils Retic Count (auto) 1.22 Absolute Retic 0.039 VBG pH VBG pCO2 VBG HCO3 VBG Base Excess Sodium Potassium Chloride Carbon Dioxide Anion Gap BUN Creatinine Est GFR ( Amer) Est GFR (Non-Af Amer) Glucose Lactic Acid 1.4 Calcium Total Bilirubin AST ALT Alkaline Phosphatase Total Protein Albumin Urine Color Urine Appearance Urine pH Ur Specific [place] Urine Protein Urine Glucose (UA) Urine Ketones Urine Blood Urine Nitrite Ur Leukocyte Esterase Urine WBC (Auto) Urine RBC (Auto) Blood Type O POSITIVE Antibody Screen NEGATIVE 11/05/18 20:50 WBC RBC Hgb Hct MCV MCH MCHC RDW Plt Count Seg Neutrophils % Lymphocytes % Monocytes % Eosinophils % Basophils % Absolute Neutrophils Absolute Lymphocytes Absolute Monocytes Absolute Eosinophils Absolute Basophils Retic Count (auto) Absolute Retic VBG pH VBG pCO2 VBG HCO3 VBG Base Excess Sodium Potassium Chloride Carbon Dioxide Anion Gap BUN Creatinine Est GFR ( Amer) Est GFR (Non-Af Amer) Glucose Lactic Acid Calcium Total Bilirubin AST ALT Alkaline Phosphatase Total Protein Albumin Urine Color YELLOW Urine Appearance CLOUDY Urine pH 5.0 Ur Specific [place] 1.021 Urine Protein 30 H Urine Glucose (UA) >=500 H Urine Ketones 20 H Urine Blood SMALL H Urine Nitrite POSITIVE H Ur Leukocyte Esterase MODERATE H Urine WBC (Auto) 68 Urine RBC (Auto) 4 Blood Type Antibody Screen 11/05/18 19:07 CK-MB (CK-2) 0.58 Impressions: Foot X-Ray 11/05/18 18:39 IMPRESSION: Subcutaneous gas in the soft tissues of the right foot in the midfoot and forefoot. This is suspicious for necrotic infection. Correlate clinically. Head CT 11/05/18 18:44 IMPRESSION: Stable left parietal infarction. No acute intracranial imaging findings. EVIDENCE OF ACUTE STROKE: NO. Ribs w/Chest X-Ray 11/05/18 18:44 IMPRESSION: No evidence for left rib fracture. Assessment & Plan - Diagnosis (1) Diabetic ketoacidosis associated with type 1 diabetes mellitus Qualifiers: Diabetes mellitus complication detail: without coma Qualified Code(s): E10.10 - Type 1 diabetes mellitus with ketoacidosis without coma - Plan Summary Plan Summary: gangrene of rt foot, 4th and 5th toes with dka, elevated wbc to 17k plan on amputation of rt 4th and 5th toes and debridement of necrotic tissue explained risks and benifits to pt inculding, cva, me, pe, pneumonia, need for additional sugery, possible foot or lower extremity amputation pt understands and agrees to proceed.
[2018-11-05] MEDS ORDERED: ONDANSETRON HCL INJ/PF 4 MG/2 ML SDV ONE (22:25)
[2018-11-05] MEDS ORDERED: LIDOCAINE 2% INJ-PF (100 MG/5 ML) SYRINGE ONE (22:25)
[2018-11-05] MEDS ORDERED: FENTANYL CITRATE INJ/PF 100 MCG/2 ML AMPUL ONE (22:25)
[2018-11-05] MEDS ORDERED: MIDAZOLAM 2 MG/2 ML INJ ONE (22:25)
[2018-11-05] MEDS ORDERED: PROPOFOL INJ 200 MG/20 ML VIAL IV ONE (22:26)
[2018-11-05] MEDS ORDERED: METOCLOPRAMIDE HCL INJ/PF 10 MG/2 ML SDV ONE (22:32)
[2018-11-05] MEDS ORDERED: BUPIVACAINE HCL 0.5%-EPI 1:200000 INJ/PF 30 ML VIAL ONE (22:57)
[2018-11-05 22:59] LABS: FOLATE > 20.00 ng/mL (>2.76)
[2018-11-05] MEDS ORDERED: ALBUTEROL SULFATE 0.083% NEB 2.5 MG/3 ML AMPUL NEB ONE (23:21)
[2018-11-05 23:52] LABS: ANION GAP 12 (5-19); BLOOD UREA NITROGEN 19 mg/dL (7-20); CALCIUM 9.7 mg/dL (8.4-10.2); CARBON DIOXIDE 22 mmol/L (22-30); CHLORIDE 98 mmol/L (98-107); GLUCOSE 303 mg/dL (75-110); SODIUM 132.4 mmol/L (137-145)
[2018-11-06 00:03] LABS: POTASSIUM 4.6 mmol/L (3.6-5.0)
[2018-11-06] MEDS ORDERED: FENTANYL CITRATE INJ/PF 100 MCG/2 ML AMPUL ONE (00:46)
[2018-11-06] MEDS ORDERED: DEXMEDETOMIDINE INJ 80 MCG/20 ML VIAL IV ONE (00:46)
[2018-11-06] MEDS ORDERED: PROPOFOL INJ 200 MG/20 ML VIAL IV ONE ×2 (00:47→00:49)
[2018-11-06] MEDS ORDERED: FENTANYL CITRATE INJ/PF 100 MCG/2 ML AMPUL IV PRN ×3 (01:06)
[2018-11-06] MEDS ORDERED: PROMETHAZINE HCL INJ 25 MG/1 ML VIAL IV PRN ×2 (01:06)
[2018-11-06] MEDS ORDERED: DIPHENHYDRAMINE HCL 50 MG/ML VIAL IV PRN (01:06)
[2018-11-06] MEDS ORDERED: ONDANSETRON HCL INJ/PF 4 MG/2 ML SDV IV PRN (01:06)
--- NOTE | 2018-11-06 01:29 | Operative Report ---
Nonrecallable Operative Report DATE OF SURGERY: 11/06/18 PREOPERATIVE DIAGNOSIS: sepsis,. right foot infection POSTOPERATIVE DIAGNOSIS: sepsis. right foot infection OPERATION: right 3,4,5toe amputation and foot debridement SURGEON: TANISHA DE LA FUENTE ANESTHESIA: Moderate Sedation TISSUE REMOVED OR ALTERED: right 3,4,5 toes COMPLICATIONS: none ESTIMATED BLOOD LOSS: 25cc INTRAOPERATIVE FINDINGS: necrotic right 3,4,5 toes PROCEDURE: see dictation
[2018-11-06] MEDS ORDERED: ALBUTEROL SULFATE 0.083% NEB 2.5 MG/3 ML AMPUL NEB ONE (01:45)
[2018-11-06] MEDS ORDERED: METOCLOPRAMIDE HCL INJ/PF 10 MG/2 ML SDV IV ONE (01:45)
[2018-11-06] MEDS: MORPHINE SULFATE 10 MG/ML INJ IV PRN ×6 (02:35→21:30)
[2018-11-06 02:44] LABS: ANION GAP 10 (5-19); BLOOD UREA NITROGEN 16 mg/dL (7-20); CARBON DIOXIDE 19 mmol/L (22-30); CHLORIDE 102 mmol/L (98-107); GLUCOSE 282 mg/dL (75-110); POTASSIUM 4.9 mmol/L (3.6-5.0); SODIUM 131.1 mmol/L (137-145)
[2018-11-06] MEDS ORDERED: NORMAL SALINE 1000 ML 1,000 ML IV ONE (05:00)
[2018-11-06] MEDS: HEPARIN SOD (PORCINE) 5,000 UNIT/ML 1 ML SYRINGE SUBCUT SCH ×3 (05:22→21:30)
--- NOTE | 2018-11-06 05:22 | PDOC H&P ---
History of Present Illness Admission Date/PCP: 11/05/18 21:26 KATT RAMSEY PA-C Patient complains of: Weakness and hyperglycemia History of Present Illness: DUSTIN MALDONADO is a 58 year old female with a past medical history of diabetes, hypertension, CVA without residual, peripheral neuropathy, dyslipidemia, COPD, iron deficiency anemia, anxiety and recurrent pyelonephritis and diabetic foot infection. She presents with generalized weakness and hypergl ycemia. In the emergency room she is found to have metabolic acidosis, hyperglycemia hyperkalemia, hyponatremia and dry gangrene of the right third fourth and fifth digits. She received empiric antibiotics, insulin, IV fluid challenge and referred to the hospitalist for admission. Patient admittedly is noncompliant with her medication and lifestyle regiment. She denies chest pain palpitations or shortness of breath. Past Medical History Cardiac Medical History: Reports: Congestive Heart Failure, Hyperlipidema, Hypertension Pulmonary Medical History: Reports: Asthma EENT Medical History: Reports: None Endocrine Medical History: Reports: Diabetes Mellitus Type 1, Diabetes Mellitus Type 2 Renal/ Medical History: Reports: None Malignancy Medical History: Reports: None GI Medical History: Reports: None Musculoskeltal Medical History: Reports: Arthritis Skin Medical History: Reports: None Psychiatric Medical History: Reports: Depression, General Anxiety Disorder Traumatic Medical History: Reports: None Hematology: Reports: Anemia Infectious Medical History: Reports: None Past Surgical History Past Surgical History: Reports: Section, Vascular Surgery - Angio Social History Information Source: Patient, Emergency Med Personnel, [facility] Records Lives with: Family Smoking Status: Former Smoker Frequency of Alcohol Use: None Hx Recreational Drug Use: No Drugs: None Hx Prescription Drug Abuse: No - Advance Directive Resuscitation Status: Full Code Family History Family History: DM, Hyperlipidemia, Hypertension Parental Family History Reviewed: Yes Children Family History Reviewed: Yes Sibling(s) Family History Reviewed.: Yes Medication/Allergy Allergies/Adverse Reactions: No Known Allergies Allergy (Verified 11/05/18 18:18) Review of Systems Constitutional: PRESENT: as per HPI, chills, fatigue, weakness, weight loss Eyes: ABSENT: visual disturbances Ears: ABSENT: hearing changes Cardiovascular: ABSENT: chest pain, dyspnea on exertion, edema, orthropnea, palpitations Respiratory: ABSENT: cough, hemoptysis Gastrointestinal: PRESENT: as per HPI, nausea. ABSENT: constipation, diarrhea, hematemesis, hematochezia, vomiting Genitourinary: ABSENT: dysuria, hematuria Musculoskeletal: PRESENT: as per HPI Integumentary: PRESENT: as per HPI. ABSENT: rash, wounds Neurological: ABSENT: abnormal gait, abnormal speech, confusion, dizziness, focal weakness, syncope Psychiatric: PRESENT: anxiety Endocrine: PRESENT: as per HPI, polydipsia, polyuria. ABSENT: cold intolerance, heat intolerance Physical Exam Vital Signs: Temp Pulse Resp BP Pulse Ox 99.3 F 98 20 117/48 L 100 11/06/18 02:01 11/06/18 02:01 11/06/18 02:01 11/06/18 02:01 11/06/18 02:01 Intake & Output 11/04/18 11/05/18 11/06/18 11:59 11:59 11:59 Intake Total 1350 Balance 1350 Weight 63.4 kg General appearance: PRESENT: cooperative, severe distress, well-developed, well- nourished. ABSENT: hard of hearing Head exam: PRESENT: atraumatic, normocephalic Eye exam: PRESENT: conjunctiva pink, EOMI, PERRLA. ABSENT: scleral icterus Ear exam: PRESENT: normal external ear exam Mouth exam: PRESENT: dry mucosa, tongue midline Neck exam: ABSENT: carotid bruit, JVD, lymphadenopathy, thyromegaly Respiratory exam: PRESENT: accessory muscle use, clear to auscultation roderick, tachypnea. ABSENT: rales, rhonchi, wheezes Cardiovascular exam: PRESENT: RRR. ABSENT: diastolic murmur, rubs, systolic murmur Pulses: PRESENT: normal dorsalis pedis pul Vascular exam: PRESENT: normal capillary refill GI/Abdominal exam: PRESENT: normal bowel sounds, soft. ABSENT: distended, guarding, mass, organolmegaly, rebound, tenderness Rectal exam: PRESENT: deferred Extremities exam: PRESENT: pedal edema, tenderness, other - Bilateral lower extremity edema, right foot with digit 3 4 and 5 malodor, eschar and necrosis Neurological exam: PRESENT: alert, awake, oriented to person, oriented to place, oriented to time, oriented to situation, CN II-XII grossly intact. ABSENT: motor sensory deficit Psychiatric exam: PRESENT: anxious Skin exam: PRESENT: other - Bilateral lower extremity edema, right foot with digit 3 4 and 5 malodor, eschar and necrosis Results Laboratory Results: 11/05/18 19:07 11/06/18 02:14 11/05/18 11/05/18 11/05/18 19:07 19:07 19:07 WBC 16.9 H RBC 3.22 L Hgb 9.5 L Hct 28.0 L MCV 87 MCH 29.4 MCHC 33.9 RDW 13.9 Plt Count 500 H Seg Neutrophils % 88.4 H Lymphocytes % 6.3 L Monocytes % 4.5 Eosinophils % 0.5 Basophils % 0.3 Absolute Neutrophils 15.0 H Absolute Lymphocytes 1.1 Absolute Monocytes 0.8 Absolute Eosinophils 0.1 Absolute Basophils 0.1 Retic Count (auto) Absolute Retic VBG pH 7.31 VBG pCO2 45.7 VBG HCO3 22.3 VBG Base Excess -3.9 Sodium 130.4 L Potassium 5.6 H Chloride 93 L Carbon Dioxide 18 L Anion Gap 19 BUN 20 Creatinine 0.94 Est GFR ( Amer) > 60 Est GFR (Non-Af Amer) > 60 Glucose 443 H* Lactic Acid Calcium 10.1 Iron TIBC % Saturation Ferritin Total Bilirubin 0.9 AST 8 L ALT < 6 L Alkaline Phosphatase 111 Total Protein 7.8 Albumin 4.0 Vitamin B12 Folate Urine Color Urine Appearance Urine pH Ur Specific [place] Urine Protein Urine Glucose (UA) Urine Ketones Urine Blood Urine Nitrite Ur Leukocyte Esterase Urine WBC (Auto) Urine RBC (Auto) Blood Type Antibody Screen 11/05/18 11/05/18 11/05/18 19:07 19:07 20:00 WBC RBC Hgb Hct MCV MCH MCHC RDW Plt Count Seg Neutrophils % Lymphocytes % Monocytes % Eosinophils % Basophils % Absolute Neutrophils Absolute Lymphocytes Absolute Monocytes Absolute Eosinophils Absolute Basophils Retic Count (auto) 1.22 Absolute Retic 0.039 VBG pH VBG pCO2 VBG HCO3 VBG Base Excess Sodium Cancelled Potassium Cancelled Chloride Cancelled Carbon Dioxide Cancelled Anion Gap Cancelled BUN Cancelled Creatinine Cancelled Est GFR ( Amer) Cancelled Est GFR (Non-Af Amer) Cancelled Glucose Cancelled Lactic Acid Calcium Cancelled Iron 22.5 L TIBC 220 L % Saturation 10 Ferritin 444.00 H Total Bilirubin AST ALT Alkaline Phosphatase Total Protein Albumin Vitamin B12 440.0 Folate > 20.00 Urine Color Urine Appearance Urine pH Ur Specific [place] Urine Protein Urine Glucose (UA) Urine Ketones Urine Blood Urine Nitrite Ur Leukocyte Esterase Urine WBC (Auto) Urine RBC (Auto) Blood Type O POSITIVE Antibody Screen NEGATIVE 11/05/18 11/05/18 11/05/18 20:00 20:50 23:29 WBC RBC Hgb Hct MCV MCH MCHC RDW Plt Count Seg Neutrophils % Lymphocytes % Monocytes % Eosinophils % Basophils % Absolute Neutrophils Absolute Lymphocytes Absolute Monocytes Absolute Eosinophils Absolute Basophils Retic Count (auto) Absolute Retic VBG pH VBG pCO2 VBG HCO3 VBG Base Excess Sodium 132.4 L Potassium 4.6 D Chloride 98 Carbon Dioxide 22 Anion Gap 12 BUN 19 Creatinine 0.80 Est GFR ( Amer) > 60 Est GFR (Non-Af Amer) > 60 Glucose 303 H Lactic Acid 1.4 Calcium 9.7 Iron TIBC % Saturation Ferritin Total Bilirubin AST ALT Alkaline Phosphatase Total Protein Albumin Vitamin B12 Folate Urine Color YELLOW Urine Appearance CLOUDY Urine pH 5.0 Ur Specific [place] 1.021 Urine Protein 30 H Urine Glucose (UA) >=500 H Urine Ketones 20 H Urine Blood SMALL H Urine Nitrite POSITIVE H Ur Leukocyte Esterase MODERATE H Urine WBC (Auto) 68 Urine RBC (Auto) 4 Blood Type Antibody Screen 11/05/18 11/06/18 23:29 02:14 WBC RBC Hgb Hct MCV MCH MCHC RDW Plt Count Seg Neutrophils % Lymphocytes % Monocytes % Eosinophils % Basophils % Absolute Neutrophils Absolute Lymphocytes Absolute Monocytes Absolute Eosinophils Absolute Basophils Retic Count (auto) Absolute Retic VBG pH VBG pCO2 VBG HCO3 VBG Base Excess Sodium 131.1 L Potassium Cancelled 4.9 Chloride 102 Carbon Dioxide 19 L Anion Gap 10 BUN 16 Creatinine 0.66 Est GFR ( Amer) > 60 Est GFR (Non-Af Amer) > 60 Glucose 282 H Lactic Acid Calcium 9.0 Iron TIBC % Saturation Ferritin Total Bilirubin AST ALT Alkaline Phosphatase Total Protein Albumin Vitamin B12 Folate Urine Color Urine Appearance Urine pH Ur Specific [place] Urine Protein Urine Glucose (UA) Urine Ketones Urine Blood Urine Nitrite Ur Leukocyte Esterase Urine WBC (Auto) Urine RBC (Auto) Blood Type Antibody Screen 11/05/18 19:07 CK-MB (CK-2) 0.58 Impressions: Foot X-Ray 11/05/18 18:39 IMPRESSION: Subcutaneous gas in the soft tissues of the right foot in the midfoot and forefoot. This is suspicious for necrotic infection. Correlate clinically. Head CT 11/05/18 18:44 IMPRESSION: Stable left parietal infarction. No acute intracranial imaging findings. EVIDENCE OF ACUTE STROKE: NO. Ribs w/Chest X-Ray 11/05/18 18:44 IMPRESSION: No evidence for left rib fracture. Assessment & Plan - Diagnosis (1) Cellulitis and abscess of foot Is this a current diagnosis for this admission?: Yes Plan: Surgical consultation, anticipate significant debridement and digit loss. Zosyn ordered. Defer to surgery for continuation. Follow-up CBC and blood culture (2) Diabetic ketoacidosis associated with type 1 diabetes mellitus Qualifiers: Diabetes mellitus complication detail: without coma Qualified Code(s): E10.10 - Type 1 diabetes mellitus with ketoacidosis without coma Is this a current diagnosis for this admission?: Yes Plan: Diabetic ketoacidosis patient has had some degree of polyuria polydipsia with nausea and uncontrolled hyperglycemia with supporting labs. Patient will receive IV fluids IV insulin serial chemistries every 6 hours for evaluation for electrolyte repletion. Complicated by diabetic foot ulcers and gangrene, patient will require diabetic education and consideration of mental health evaluation. (3) Acute renal failure (ARF) Is this a current diagnosis for this admission?: Yes Plan: IV fluid challenge, avoid nephrotoxic meds and doses reevaluate chemistry (4) Iron deficiency anemia Qualifiers: Iron deficiency anemia type: unspecified iron deficiency Qualified Code(s): D50.9 - Iron deficiency anemia, unspecified Is this a current diagnosis for this admission?: Yes Plan: Likely multifactorial of chronic disease and iron deficiency anemia. Follow-up labs - Time Time Spent: 50 to 70 Minutes - Inpatient Certification Medical Necessity: Need Close Monitoring Due to Risk of Patient Decompensation
--- NOTE | 2018-11-06 05:23 | OPERATIVE REPORT E ---
Operative Report NAME: DUSTIN MALDONADO : 1960 AGE: 58Y DATE OF SURGERY: 11/06/2018 ROOM: 607 PREOPERATIVE DIAGNOSES: 1. SEPSIS. 2. RIGHT FOOT INFECTION. POSTOPERATIVE DIAGNOSES: 1. SEPSIS. 2. RIGHT FOOT INFECTION. OPERATION: Amputation of right third, fourth, and fifth toes with forefoot debridement. SURGEON: TANISHA DE LA FUENTE M.D. INDICATION FOR PROCEDURE: This is a 58-year-old female with type 1 diabetes, not compliant with her medication, congestive heart failure, hyperlipidemia, hypertension, previous CVA, depression, anxiety, who presented to the emergency room with some left flank pain. During her workup she was noted to have an Accu-Chek of 407, signs and symptoms of diabetic ketoacidosis with a high potassium. She had a foul-smelling right foot and when the ER physician removed her sock, she was noted to have necrosis of her right fourth and fifth toe, with extension of cellulitis and purulence up the lateral aspect of her right forefoot. Surgery was consulted. Because of her ongoing sepsis with a white blood count of 17,000 and an acidosis and high potassium level, she was emergently prepped for the operating room. Because of her hyperkalemia and her acidosis, it was felt by Anesthesia not to perform general anesthesia for this patient and, therefore, this procedure was done under local with IV sedation. PROCEDURE: The patient was brought to the operating room in a critical condition, placed on the operating room table in supine position, and given IV sedation. The right foot was prepped and draped in the usual sterile fashion for the procedure. After an appropriate time-out, I performed an ankle block using 0.5% lidocaine with epinephrine, anesthetizing the forefoot and the posterior tibial area along the sural nerve with approximately 7 mL of 0.5% lidocaine with epinephrine. After an adequate block, the lateral aspect of the right foot had deep necrosis of the right fourth and fifth toe which extended to the mid lateral forefoot. An elliptical incision was made in the web space of the third and fourth toe, and that was extended to the mid lateral forefoot. Dissection was carried down through subcutaneous tissue with the knife. Only minimal bleeding resulted. When we reached the phalanx, it was disarticulated with Metzenbaum scissors and then the metatarsals of the fourth and fifth toe were amputated with a bone cutter. Once this was done, we noted that the lateral aspect of the third toe also had some necrosis of the musculature and, therefore, I elected to remove the third toe also with a similar elliptical incision in the web space between the second and third toe, and that was carried down to the metatarsal, and then that was amputated midpoint with the bone cutter. Once this was completed, the posterior flap appeared to be healthy and all areas of necrotic muscle were debrided with Metzenbaum scissors, and there was no evidence of any further purulent drainage. It should be noted, however, the third, fourth, and fifth toe needed to be removed. It also should be noted that prior to surgery I discussed the possibility of below the knee amputation with this patient and her daughter over the phone, and they at this point refused that procedure, only to have this done to see if we could get control of the infection with the toe amputation. After debridement, the wound was copiously irrigated with normal saline. Hemostasis was obtained with Bovie cautery of a number of small veins, and after good hemostasis we packed the wound with a Betadine-soaked Kerlix sponge, and then a sterile dressing was applied. This completed the procedure. Estimated blood loss was less than 25 mL. Sponge and needle counts were correct x2. The patient was then transferred to the intensive care unit in stable but critical condition. DICTATING PHYSICIAN: TANISHA DE LA FUENTE M.D. [id number] PHY#: [id number] ID: [id number] JOB#: [id number] ACCT: [id number] cc:TANISHA DE LA FUENTE M.D. >
[2018-11-06 06:31] LABS: ANION GAP 12 (5-19); BLOOD UREA NITROGEN 14 mg/dL (7-20); CARBON DIOXIDE 19 mmol/L (22-30); CHLORIDE 102 mmol/L (98-107); GLUCOSE 260 mg/dL (75-110); POTASSIUM 4.7 mmol/L (3.6-5.0)
[2018-11-06] MEDS ORDERED: NORMAL SALINE 1000 ML 1,000 ML IV PRN ×2 (06:48→07:00)
--- NOTE | 2018-11-06 07:43 | EKG REPORT ---
SEVERITY:- OTHERWISE NORMAL ECG - SINUS TACHYCARDIA : Confirmed by: Kadeem Cali MD 06-Nov-2018 07:42:22
[2018-11-06 07:47] LABS: ABSOLUTE EOSINOPHILS # (AUTO) 0.1 10^3/uL (0.0-0.6); ABSOLUTE LYMPHOCYTES (AUTO) 1.5 10^3/uL (0.5-4.7); ABSOLUTE MONOCYTES (AUTO) 0.7 10^3/uL (0.1-1.4); ABSOLUTE NEUT (AUTO) 9.5 10^3/uL (1.7-8.2); BASOPHILS % (AUTO) 0.4 % (0-2); HEMATOCRIT 23.5 % (36.0-47.0); HEMOGLOBIN 8.2 g/dL (12.0-15.5); LYMPHOCYTES % (AUTO) 12.3 % (13-45); MEAN CORPUSCULAR HEMOGLOBIN 29.4 pg (27.0-33.4); MEAN CORPUSCULAR HGB CONC 34.7 g/dL (32.0-36.0); MEAN CORPUSCULAR VOLUME 85 fl (80-97); MONOCYTES % (AUTO) 6.1 % (3-13); PLATELET COUNT 365 10^3/uL (150-450); RED BLOOD COUNT 2.78 10^6/uL (3.72-5.28); RED CELL DISTRIBUTION WIDTH 13.5 % (11.5-14.0); SEGMENTED NEUTROPHILS % (AUTO) 80.2 % (42-78); TOTAL CELLS COUNTED % (AUTO) 100 %; WHITE BLOOD COUNT 11.8 10^3/uL (4.0-10.5)
[2018-11-06] MEDS: INSULIN LISPRO 100 UNIT/ML 3 ML VIAL SUBCUT SCH ×4 (08:07→21:30)
[2018-11-06] MEDS: CEFEPIME 1 GM/D5W RTU 1 GM/50 ML RTUPB IV SCH ×2 (09:22→21:29)
[2018-11-06] MEDS: VANCOMYCIN HCL 750 MG in DEXTROSE 5%-WATER 250 ML IV SCH ×2 (09:23→21:28)
[2018-11-06] MEDS: DOCUSATE SODIUM 100 MG CAPSULE PO SCH ×2 (09:24→18:11)
[2018-11-06 11:27] LABS: ANION GAP 8 (5-19); BLOOD UREA NITROGEN 12 mg/dL (7-20); CALCIUM 9.1 mg/dL (8.4-10.2); CARBON DIOXIDE 24 mmol/L (22-30); CHLORIDE 100 mmol/L (98-107); GLUCOSE 233 mg/dL (75-110); POTASSIUM 4.2 mmol/L (3.6-5.0); SODIUM 132.2 mmol/L (137-145)
--- NOTE | 2018-11-06 13:29 | PDOC PROGRESS REPORT ---
Subjective Progress Note for:: 11/06/18 Subjective:: This is 58 years old female patient with multiple comorbidities including CHF, hypertension, hyperlipidemia presented with chief complaint of weakness and hyperglycemia. Patient also found to have dry gangrene of the right third fourth and fifth digits and Dr. Morin took the patient to the OR and performed amputation of the above-mentioned digits. Currently patient has been getting vancomycin and cefepime. I will discuss with Dr. Morin regarding the nature of the wound and the amputation in order to discontinue the antibiotic if indicated. Reason For Visit: DKA, DM FOOT, UTI Physical Exam Vital Signs: Temp Pulse Resp BP Pulse Ox 98.6 F 110 H 25 H 151/100 H 100 11/06/18 12:00 11/06/18 12:00 11/06/18 12:02 11/06/18 12:02 11/06/18 12:01 Intake & Output 11/05/18 11/06/18 11/07/18 06:59 06:59 06:59 Intake Total 1350 1300 Output Total 1000 Balance 350 1300 Weight 63.4 kg General appearance: PRESENT: no acute distress Head exam: PRESENT: atraumatic, normocephalic Eye exam: PRESENT: conjunctiva pink Mouth exam: PRESENT: moist Neck exam: ABSENT: carotid bruit, JVD, lymphadenopathy, thyromegaly Respiratory exam: PRESENT: clear to auscultation roderick. ABSENT: rales, rhonchi, wheezes Cardiovascular exam: PRESENT: RRR. ABSENT: diastolic murmur, rubs, systolic murmur Neurological exam: PRESENT: alert, awake, oriented to time, oriented to situation Results Laboratory Results: 11/06/18 07:39 11/06/18 10:33 11/05/18 11/05/18 11/05/18 19:07 19:07 19:07 WBC 16.9 H RBC 3.22 L Hgb 9.5 L Hct 28.0 L MCV 87 MCH 29.4 MCHC 33.9 RDW 13.9 Plt Count 500 H Seg Neutrophils % 88.4 H Lymphocytes % 6.3 L Monocytes % 4.5 Eosinophils % 0.5 Basophils % 0.3 Absolute Neutrophils 15.0 H Absolute Lymphocytes 1.1 Absolute Monocytes 0.8 Absolute Eosinophils 0.1 Absolute Basophils 0.1 Retic Count (auto) Absolute Retic VBG pH 7.31 VBG pCO2 45.7 VBG HCO3 22.3 VBG Base Excess -3.9 Sodium 130.4 L Potassium 5.6 H Chloride 93 L Carbon Dioxide 18 L Anion Gap 19 BUN 20 Creatinine 0.94 Est GFR ( Amer) > 60 Est GFR (Non-Af Amer) > 60 Glucose 443 H* Lactic Acid Calcium 10.1 Iron TIBC % Saturation Ferritin Total Bilirubin 0.9 AST 8 L ALT < 6 L Alkaline Phosphatase 111 Total Protein 7.8 Albumin 4.0 Vitamin B12 Folate Urine Color Urine Appearance Urine pH Ur Specific [place] Urine Protein Urine Glucose (UA) Urine Ketones Urine Blood Urine Nitrite Ur Leukocyte Esterase Urine WBC (Auto) Urine RBC (Auto) Blood Type Antibody Screen 11/05/18 11/05/18 11/05/18 19:07 19:07 20:00 WBC RBC Hgb Hct MCV MCH MCHC RDW Plt Count Seg Neutrophils % Lymphocytes % Monocytes % Eosinophils % Basophils % Absolute Neutrophils Absolute Lymphocytes Absolute Monocytes Absolute Eosinophils Absolute Basophils Retic Count (auto) 1.22 Absolute Retic 0.039 VBG pH VBG pCO2 VBG HCO3 VBG Base Excess Sodium Cancelled Potassium Cancelled Chloride Cancelled Carbon Dioxide Cancelled Anion Gap Cancelled BUN Cancelled Creatinine Cancelled Est GFR ( Amer) Cancelled Est GFR (Non-Af Amer) Cancelled Glucose Cancelled Lactic Acid Calcium Cancelled Iron 22.5 L TIBC 220 L % Saturation 10 Ferritin 444.00 H Total Bilirubin AST ALT Alkaline Phosphatase Total Protein Albumin Vitamin B12 440.0 Folate > 20.00 Urine Color Urine Appearance Urine pH Ur Specific [place] Urine Protein Urine Glucose (UA) Urine Ketones Urine Blood Urine Nitrite Ur Leukocyte Esterase Urine WBC (Auto) Urine RBC (Auto) Blood Type O POSITIVE Antibody Screen NEGATIVE 11/05/18 11/05/18 11/05/18 20:00 20:50 23:29 WBC RBC Hgb Hct MCV MCH MCHC RDW Plt Count Seg Neutrophils % Lymphocytes % Monocytes % Eosinophils % Basophils % Absolute Neutrophils Absolute Lymphocytes Absolute Monocytes Absolute Eosinophils Absolute Basophils Retic Count (auto) Absolute Retic VBG pH VBG pCO2 VBG HCO3 VBG Base Excess Sodium 132.4 L Potassium 4.6 D Chloride 98 Carbon Dioxide 22 Anion Gap 12 BUN 19 Creatinine 0.80 Est GFR ( Amer) > 60 Est GFR (Non-Af Amer) > 60 Glucose 303 H Lactic Acid 1.4 Calcium 9.7 Iron TIBC % Saturation Ferritin Total Bilirubin AST ALT Alkaline Phosphatase Total Protein Albumin Vitamin B12 Folate Urine Color YELLOW Urine Appearance CLOUDY Urine pH 5.0 Ur Specific [place] 1.021 Urine Protein 30 H Urine Glucose (UA) >=500 H Urine Ketones 20 H Urine Blood SMALL H Urine Nitrite POSITIVE H Ur Leukocyte Esterase MODERATE H Urine WBC (Auto) 68 Urine RBC (Auto) 4 Blood Type Antibody Screen 11/05/18 11/06/18 11/06/18 23:29 02:14 05:55 WBC RBC Hgb Hct MCV MCH MCHC RDW Plt Count Seg Neutrophils % Lymphocytes % Monocytes % Eosinophils % Basophils % Absolute Neutrophils Absolute Lymphocytes Absolute Monocytes Absolute Eosinophils Absolute Basophils Retic Count (auto) Absolute Retic VBG pH VBG pCO2 VBG HCO3 VBG Base Excess Sodium 131.1 L 133.0 L Potassium Cancelled 4.9 4.7 Chloride 102 102 Carbon Dioxide 19 L 19 L Anion Gap 10 12 BUN 16 14 Creatinine 0.66 0.62 Est GFR ( Amer) > 60 > 60 Est GFR (Non-Af Amer) > 60 > 60 Glucose 282 H 260 H Lactic Acid Calcium 9.0 9.0 Iron TIBC % Saturation Ferritin Total Bilirubin AST ALT Alkaline Phosphatase Total Protein Albumin Vitamin B12 Folate Urine Color Urine Appearance Urine pH Ur Specific [place] Urine Protein Urine Glucose (UA) Urine Ketones Urine Blood Urine Nitrite Ur Leukocyte Esterase Urine WBC (Auto) Urine RBC (Auto) Blood Type Antibody Screen 11/06/18 11/06/18 11/06/18 05:55 07:39 10:33 WBC Cancelled 11.8 H RBC Cancelled 2.78 L Hgb Cancelled 8.2 L Hct Cancelled 23.5 L MCV Cancelled 85 MCH Cancelled 29.4 MCHC Cancelled 34.7 RDW Cancelled 13.5 Plt Count Cancelled 365 Seg Neutrophils % Cancelled 80.2 H Lymphocytes % Cancelled 12.3 L Monocytes % Cancelled 6.1 Eosinophils % Cancelled 1.0 Basophils % Cancelled 0.4 Absolute Neutrophils Cancelled 9.5 H Absolute Lymphocytes Cancelled 1.5 Absolute Monocytes Cancelled 0.7 Absolute Eosinophils Cancelled 0.1 Absolute Basophils Cancelled 0.0 Retic Count (auto) Absolute Retic VBG pH VBG pCO2 VBG HCO3 VBG Base Excess Sodium 132.2 L Potassium 4.2 Chloride 100 Carbon Dioxide 24 Anion Gap 8 BUN 12 Creatinine 0.65 Est GFR ( Amer) > 60 Est GFR (Non-Af Amer) > 60 Glucose 233 H Lactic Acid Calcium 9.1 Iron TIBC % Saturation Ferritin Total Bilirubin AST ALT Alkaline Phosphatase Total Protein Albumin Vitamin B12 Folate Urine Color Urine Appearance Urine pH Ur Specific [place] Urine Protein Urine Glucose (UA) Urine Ketones Urine Blood Urine Nitrite Ur Leukocyte Esterase Urine WBC (Auto) Urine RBC (Auto) Blood Type Antibody Screen 11/05/18 19:07 CK-MB (CK-2) 0.58 Impressions: Foot X-Ray 11/05/18 18:39 IMPRESSION: Subcutaneous gas in the soft tissues of the right foot in the midfoot and forefoot. This is suspicious for necrotic infection. Correlate clinically. Head CT 11/05/18 18:44 IMPRESSION: Stable left parietal infarction. No acute intracranial imaging findings. EVIDENCE OF ACUTE STROKE: NO. Ribs w/Chest X-Ray 11/05/18 18:44 IMPRESSION: No evidence for left rib fracture. Assessment & Plan - Diagnosis (1) Right foot cellulitis and dry gangrene Is this a current diagnosis for this admission?: Yes Plan: Status post amputation of the right third, fourth and fifth toes. I will continue the vancomycin and cefepime. (2) Hypokalemia Is this a current diagnosis for this admission?: Yes Plan: Resolved (3) Hyponatremia Is this a current diagnosis for this admission?: Yes Plan: Improving (4) Metabolic acidosis and hyperglycemia Is this a current diagnosis for this admission?: Yes Plan: Improving (5) Complicated UTI (urinary tract infection) Is this a current diagnosis for this admission?: Yes Plan: Her urinalysis is nitrite positive and pyuria. Patient has been on cefepime. (6) Uncontrolled diabetes mellitus Qualifiers: Diabetes mellitus type: type 2 Is this a current diagnosis for this admission?: Yes Plan: Her hemoglobin A1c is 9.6. And reportedly by her daughter patient is noncompliant to see her diet or medication. (7) Hypertension Qualifiers: Hypertension type: essential hypertension Qualified Code(s): I10 - Essential (primary) hypertension Is this a current diagnosis for this admission?: Yes Plan: Continue home medication (8) Hyperlipidemia Qualifiers: Hyperlipidemia type: unspecified Qualified Code(s): E78.5 - Hyperlipidemia, unspecified Is this a current diagnosis for this admission?: Yes Plan: Continue home medication
--- NOTE | 2018-11-06 13:42 | PDOC PROGRESS REPORT ---
Subjective Progress Note for:: 11/06/18 Reason For Visit: DKA, DM FOOT, UTI Physical Exam Vital Signs: Temp Pulse Resp BP Pulse Ox 98.6 F 110 H 25 H 151/100 H 100 11/06/18 12:00 11/06/18 12:00 11/06/18 12:02 11/06/18 12:02 11/06/18 12:01 Intake & Output 11/05/18 11/06/18 11/07/18 06:59 06:59 06:59 Intake Total 1350 1300 Output Total 1000 Balance 350 1300 Weight 63.4 kg Results Laboratory Results: 11/06/18 07:39 11/06/18 10:33 11/05/18 11/05/18 11/05/18 19:07 19:07 19:07 WBC 16.9 H RBC 3.22 L Hgb 9.5 L Hct 28.0 L MCV 87 MCH 29.4 MCHC 33.9 RDW 13.9 Plt Count 500 H Seg Neutrophils % 88.4 H Lymphocytes % 6.3 L Monocytes % 4.5 Eosinophils % 0.5 Basophils % 0.3 Absolute Neutrophils 15.0 H Absolute Lymphocytes 1.1 Absolute Monocytes 0.8 Absolute Eosinophils 0.1 Absolute Basophils 0.1 Retic Count (auto) Absolute Retic VBG pH 7.31 VBG pCO2 45.7 VBG HCO3 22.3 VBG Base Excess -3.9 Sodium 130.4 L Potassium 5.6 H Chloride 93 L Carbon Dioxide 18 L Anion Gap 19 BUN 20 Creatinine 0.94 Est GFR ( Amer) > 60 Est GFR (Non-Af Amer) > 60 Glucose 443 H* Lactic Acid Calcium 10.1 Iron TIBC % Saturation Ferritin Total Bilirubin 0.9 AST 8 L ALT < 6 L Alkaline Phosphatase 111 Total Protein 7.8 Albumin 4.0 Vitamin B12 Folate Urine Color Urine Appearance Urine pH Ur Specific [place] Urine Protein Urine Glucose (UA) Urine Ketones Urine Blood Urine Nitrite Ur Leukocyte Esterase Urine WBC (Auto) Urine RBC (Auto) Blood Type Antibody Screen 11/05/18 11/05/18 11/05/18 19:07 19:07 20:00 WBC RBC Hgb Hct MCV MCH MCHC RDW Plt Count Seg Neutrophils % Lymphocytes % Monocytes % Eosinophils % Basophils % Absolute Neutrophils Absolute Lymphocytes Absolute Monocytes Absolute Eosinophils Absolute Basophils Retic Count (auto) 1.22 Absolute Retic 0.039 VBG pH VBG pCO2 VBG HCO3 VBG Base Excess Sodium Cancelled Potassium Cancelled Chloride Cancelled Carbon Dioxide Cancelled Anion Gap Cancelled BUN Cancelled Creatinine Cancelled Est GFR ( Amer) Cancelled Est GFR (Non-Af Amer) Cancelled Glucose Cancelled Lactic Acid Calcium Cancelled Iron 22.5 L TIBC 220 L % Saturation 10 Ferritin 444.00 H Total Bilirubin AST ALT Alkaline Phosphatase Total Protein Albumin Vitamin B12 440.0 Folate > 20.00 Urine Color Urine Appearance Urine pH Ur Specific [place] Urine Protein Urine Glucose (UA) Urine Ketones Urine Blood Urine Nitrite Ur Leukocyte Esterase Urine WBC (Auto) Urine RBC (Auto) Blood Type O POSITIVE Antibody Screen NEGATIVE 11/05/18 11/05/18 11/05/18 20:00 20:50 23:29 WBC RBC Hgb Hct MCV MCH MCHC RDW Plt Count Seg Neutrophils % Lymphocytes % Monocytes % Eosinophils % Basophils % Absolute Neutrophils Absolute Lymphocytes Absolute Monocytes Absolute Eosinophils Absolute Basophils Retic Count (auto) Absolute Retic VBG pH VBG pCO2 VBG HCO3 VBG Base Excess Sodium 132.4 L Potassium 4.6 D Chloride 98 Carbon Dioxide 22 Anion Gap 12 BUN 19 Creatinine 0.80 Est GFR ( Amer) > 60 Est GFR (Non-Af Amer) > 60 Glucose 303 H Lactic Acid 1.4 Calcium 9.7 Iron TIBC % Saturation Ferritin Total Bilirubin AST ALT Alkaline Phosphatase Total Protein Albumin Vitamin B12 Folate Urine Color YELLOW Urine Appearance CLOUDY Urine pH 5.0 Ur Specific [place] 1.021 Urine Protein 30 H Urine Glucose (UA) >=500 H Urine Ketones 20 H Urine Blood SMALL H Urine Nitrite POSITIVE H Ur Leukocyte Esterase MODERATE H Urine WBC (Auto) 68 Urine RBC (Auto) 4 Blood Type Antibody Screen 11/05/18 11/06/18 11/06/18 23:29 02:14 05:55 WBC RBC Hgb Hct MCV MCH MCHC RDW Plt Count Seg Neutrophils % Lymphocytes % Monocytes % Eosinophils % Basophils % Absolute Neutrophils Absolute Lymphocytes Absolute Monocytes Absolute Eosinophils Absolute Basophils Retic Count (auto) Absolute Retic VBG pH VBG pCO2 VBG HCO3 VBG Base Excess Sodium 131.1 L 133.0 L Potassium Cancelled 4.9 4.7 Chloride 102 102 Carbon Dioxide 19 L 19 L Anion Gap 10 12 BUN 16 14 Creatinine 0.66 0.62 Est GFR ( Amer) > 60 > 60 Est GFR (Non-Af Amer) > 60 > 60 Glucose 282 H 260 H Lactic Acid Calcium 9.0 9.0 Iron TIBC % Saturation Ferritin Total Bilirubin AST ALT Alkaline Phosphatase Total Protein Albumin Vitamin B12 Folate Urine Color Urine Appearance Urine pH Ur Specific [place] Urine Protein Urine Glucose (UA) Urine Ketones Urine Blood Urine Nitrite Ur Leukocyte Esterase Urine WBC (Auto) Urine RBC (Auto) Blood Type Antibody Screen 11/06/18 11/06/18 11/06/18 05:55 07:39 10:33 WBC Cancelled 11.8 H RBC Cancelled 2.78 L Hgb Cancelled 8.2 L Hct Cancelled 23.5 L MCV Cancelled 85 MCH Cancelled 29.4 MCHC Cancelled 34.7 RDW Cancelled 13.5 Plt Count Cancelled 365 Seg Neutrophils % Cancelled 80.2 H Lymphocytes % Cancelled 12.3 L Monocytes % Cancelled 6.1 Eosinophils % Cancelled 1.0 Basophils % Cancelled 0.4 Absolute Neutrophils Cancelled 9.5 H Absolute Lymphocytes Cancelled 1.5 Absolute Monocytes Cancelled 0.7 Absolute Eosinophils Cancelled 0.1 Absolute Basophils Cancelled 0.0 Retic Count (auto) Absolute Retic VBG pH VBG pCO2 VBG HCO3 VBG Base Excess Sodium 132.2 L Potassium 4.2 Chloride 100 Carbon Dioxide 24 Anion Gap 8 BUN 12 Creatinine 0.65 Est GFR ( Amer) > 60 Est GFR (Non-Af Amer) > 60 Glucose 233 H Lactic Acid Calcium 9.1 Iron TIBC % Saturation Ferritin Total Bilirubin AST ALT Alkaline Phosphatase Total Protein Albumin Vitamin B12 Folate Urine Color Urine Appearance Urine pH Ur Specific [place] Urine Protein Urine Glucose (UA) Urine Ketones Urine Blood Urine Nitrite Ur Leukocyte Esterase Urine WBC (Auto) Urine RBC (Auto) Blood Type Antibody Screen 11/05/18 19:07 CK-MB (CK-2) 0.58 Impressions: Foot X-Ray 11/05/18 18:39 IMPRESSION: Subcutaneous gas in the soft tissues of the right foot in the midfoot and forefoot. This is suspicious for necrotic infection. Correlate clinically. Head CT 11/05/18 18:44 IMPRESSION: Stable left parietal infarction. No acute intracranial imaging findings. EVIDENCE OF ACUTE STROKE: NO. Ribs w/Chest X-Ray 11/05/18 18:44 IMPRESSION: No evidence for left rib fracture. Assessment & Plan - Plan Summary Plan Summary: This is a 58-year-old female status post debridement of her right foot for a severe diabetic foot infection. I have examined the wound today. There is no necrotic or nonviable tissue present. There is no purulence present. The wound is very large. I believe source control has been achieved. Continue antibiotics. Initiate twice daily damp to dry dressing changes. The patient will require long-term wound care secondary to her refusal of below-knee amputation. Ultimately, BKA may be required if adequate healing cannot be achieved in the foot. This has been discussed at length with the patient and her mother. They have voiced understanding. Continue with current plan for now. Tight glucose control is essential for long-term success.
[2018-11-06 15:14] LABS: ANION GAP 7 (5-19); BLOOD UREA NITROGEN 10 mg/dL (7-20); CALCIUM 8.9 mg/dL (8.4-10.2); CARBON DIOXIDE 24 mmol/L (22-30); CHLORIDE 100 mmol/L (98-107); GLUCOSE 225 mg/dL (75-110); POTASSIUM 3.9 mmol/L (3.6-5.0); SODIUM 130.8 mmol/L (137-145)
[2018-11-06] MEDS: ACETAMINOPHEN 325 MG TABLET PO PRN ×2 (15:41→23:18)
[2018-11-06 19:31] LABS: ANION GAP 13 (5-19); BLOOD UREA NITROGEN 9 mg/dL (7-20); CALCIUM 9.6 mg/dL (8.4-10.2); CARBON DIOXIDE 23 mmol/L (22-30); CHLORIDE 97 mmol/L (98-107); GLUCOSE 250 mg/dL (75-110); POTASSIUM 4.1 mmol/L (3.6-5.0); SODIUM 133.3 mmol/L (137-145)
[2018-11-06] MEDS ORDERED: VANCOMYCIN HCL 1,000 MG in DEXTROSE 5%-WATER 250 ML IV SCH (22:00)
[2018-11-06 23:37] LABS: ANION GAP 9 (5-19); BLOOD UREA NITROGEN 10 mg/dL (7-20); CALCIUM 9.1 mg/dL (8.4-10.2); CARBON DIOXIDE 23 mmol/L (22-30); CHLORIDE 97 mmol/L (98-107); GLUCOSE 297 mg/dL (75-110); POTASSIUM 4.4 mmol/L (3.6-5.0); SODIUM 128.9 mmol/L (137-145)
[2018-11-07] MEDS: MORPHINE SULFATE 10 MG/ML INJ IV PRN ×3 (03:04→14:46)
[2018-11-07 03:19] LABS: ANION GAP 13 (5-19); BLOOD UREA NITROGEN 9 mg/dL (7-20); CALCIUM 9.5 mg/dL (8.4-10.2); CARBON DIOXIDE 24 mmol/L (22-30); CHLORIDE 96 mmol/L (98-107); GLUCOSE 253 mg/dL (75-110); POTASSIUM 4.2 mmol/L (3.6-5.0)
[2018-11-07] MEDS: HEPARIN SOD (PORCINE) 5,000 UNIT/ML 1 ML SYRINGE SUBCUT SCH ×3 (06:29→23:22)
[2018-11-07 07:20] LABS: ABSOLUTE BASOPHILS # (AUTO) 0.1 10^3/uL (0.0-0.2); ABSOLUTE EOSINOPHILS # (AUTO) 0.1 10^3/uL (0.0-0.6); ABSOLUTE LYMPHOCYTES (AUTO) 1.8 10^3/uL (0.5-4.7); ABSOLUTE MONOCYTES (AUTO) 0.8 10^3/uL (0.1-1.4); ABSOLUTE NEUT (AUTO) 9.5 10^3/uL (1.7-8.2); BASOPHILS % (AUTO) 0.5 % (0-2); HEMATOCRIT 24.4 % (36.0-47.0); HEMOGLOBIN 8.4 g/dL (12.0-15.5); LYMPHOCYTES % (AUTO) 14.4 % (13-45); MEAN CORPUSCULAR HGB CONC 34.5 g/dL (32.0-36.0); MEAN CORPUSCULAR VOLUME 84 fl (80-97); MONOCYTES % (AUTO) 6.3 % (3-13); PLATELET COUNT 405 10^3/uL (150-450); RED CELL DISTRIBUTION WIDTH 13.8 % (11.5-14.0); SEGMENTED NEUTROPHILS % (AUTO) 77.8 % (42-78); TOTAL CELLS COUNTED % (AUTO) 100 %; WHITE BLOOD COUNT 12.2 10^3/uL (4.0-10.5)
[2018-11-07 07:31] LABS: ANION GAP 11 (5-19); BLOOD UREA NITROGEN 9 mg/dL (7-20); CALCIUM 9.1 mg/dL (8.4-10.2); CARBON DIOXIDE 24 mmol/L (22-30); CHLORIDE 98 mmol/L (98-107); GLUCOSE 230 mg/dL (75-110); POTASSIUM 4.3 mmol/L (3.6-5.0); SODIUM 133.3 mmol/L (137-145)
[2018-11-07] MEDS: INSULIN LISPRO 100 UNIT/ML 3 ML VIAL SUBCUT SCH ×4 (08:16→23:24)
[2018-11-07] MEDS: DOCUSATE SODIUM 100 MG CAPSULE PO SCH ×2 (09:21→18:35)
[2018-11-07] MEDS: VANCOMYCIN HCL 750 MG in DEXTROSE 5%-WATER 250 ML IV SCH ×2 (09:22→23:25)
[2018-11-07] MEDS: CEFEPIME 1 GM/D5W RTU 1 GM/50 ML RTUPB IV SCH ×2 (09:22→23:25)
--- NOTE | 2018-11-07 11:37 | PDOC PROGRESS REPORT ---
Subjective Subjective:: I seen patient resting in bed. She is awake alert she is not in pain or distress. No new complaints. As per Dr. Mcqueen patient requires long-term wound care secondary to her refusal of below-knee amputation. Her blood culture is positive for gram-positive cocci. Patient has been on vancomycin and Zosyn. Since patient is clinically stable she is downgraded to medical floor. Reason For Visit: DKA, DM FOOT, UTI Physical Exam Vital Signs: Temp Pulse Resp BP Pulse Ox 99.9 F 101 H 15 142/62 H 97 11/07/18 08:00 11/07/18 08:00 11/07/18 09:00 11/07/18 08:00 11/07/18 09:00 Intake & Output 11/06/18 11/07/18 11/08/18 06:59 06:59 06:59 Intake Total 1350 1300 2350 Output Total 1000 500 200 Balance 966 081 4695 Weight 63.4 kg 64.3 kg General appearance: PRESENT: no acute distress Head exam: PRESENT: atraumatic, normocephalic Mouth exam: PRESENT: moist Neck exam: ABSENT: carotid bruit, JVD, lymphadenopathy, thyromegaly Respiratory exam: PRESENT: clear to auscultation roderick. ABSENT: rales, rhonchi, wheezes Cardiovascular exam: PRESENT: RRR. ABSENT: diastolic murmur, rubs, systolic murmur GI/Abdominal exam: PRESENT: normal bowel sounds, soft. ABSENT: distended, guarding, mass, organolmegaly, rebound, tenderness Neurological exam: PRESENT: alert, awake, oriented to time, oriented to situation Results Laboratory Results: 11/07/18 07:03 11/07/18 07:03 11/06/18 11/06/18 11/06/18 14:43 19:00 23:07 WBC RBC Hgb Hct MCV MCH MCHC RDW Plt Count Seg Neutrophils % Lymphocytes % Monocytes % Eosinophils % Basophils % Absolute Neutrophils Absolute Lymphocytes Absolute Monocytes Absolute Eosinophils Absolute Basophils Sodium 130.8 L 133.3 L 128.9 L Potassium 3.9 4.1 4.4 Chloride 100 97 L 97 L Carbon Dioxide 24 23 23 Anion Gap 7 13 9 BUN 10 9 10 Creatinine 0.64 0.66 0.62 Est GFR ( Amer) > 60 > 60 > 60 Est GFR (Non-Af Amer) > 60 > 60 > 60 Glucose 225 H 250 H 297 H Calcium 8.9 9.6 9.1 11/07/18 11/07/18 11/07/18 02:57 07:03 07:03 WBC 12.2 H RBC 2.90 L Hgb 8.4 L Hct 24.4 L MCV 84 MCH 29.0 MCHC 34.5 RDW 13.8 Plt Count 405 Seg Neutrophils % 77.8 Lymphocytes % 14.4 Monocytes % 6.3 Eosinophils % 1.0 Basophils % 0.5 Absolute Neutrophils 9.5 H Absolute Lymphocytes 1.8 Absolute Monocytes 0.8 Absolute Eosinophils 0.1 Absolute Basophils 0.1 Sodium 133.0 L 133.3 L Potassium 4.2 4.3 Chloride 96 L 98 Carbon Dioxide 24 24 Anion Gap 13 11 BUN 9 9 Creatinine 0.68 0.64 Est GFR ( Amer) > 60 > 60 Est GFR (Non-Af Amer) > 60 > 60 Glucose 253 H 230 H Calcium 9.5 9.1 11/05/18 19:07 CK-MB (CK-2) 0.58 Impressions: Foot X-Ray 11/05/18 18:39 IMPRESSION: Subcutaneous gas in the soft tissues of the right foot in the midfoot and forefoot. This is suspicious for necrotic infection. Correlate clinically. Head CT 11/05/18 18:44 IMPRESSION: Stable left parietal infarction. No acute intracranial imaging findings. EVIDENCE OF ACUTE STROKE: NO. Ribs w/Chest X-Ray 11/05/18 18:44 IMPRESSION: No evidence for left rib fracture. Assessment & Plan - Diagnosis (1) Right foot cellulitis and dry gangrene Is this a current diagnosis for this admission?: Yes Plan: Status post total debridement and amputation of third fourth and fifth toe. Patient needs long-term wound care. Her blood culture is positive for gram-positive cocci. We will continue current antibiotics. (2) Hypokalemia Is this a current diagnosis for this admission?: Yes Plan: Resolved (3) Hyponatremia Is this a current diagnosis for this admission?: Yes Plan: Improving (4) Metabolic acidosis and hyperglycemia Is this a current diagnosis for this admission?: Yes Plan: Improving (5) Complicated UTI (urinary tract infection) Is this a current diagnosis for this admission?: Yes Plan: Her urinalysis is nitrite positive and pyuria. Patient has been on cefepime. (6) Uncontrolled diabetes mellitus Qualifiers: Diabetes mellitus type: type 2 Is this a current diagnosis for this admission?: Yes Plan: Her hemoglobin A1c is 9.6. And reportedly by her daughter patient is noncompliant to see her diet or medication. (7) Hypertension Qualifiers: Hypertension type: essential hypertension Qualified Code(s): I10 - Essential (primary) hypertension Is this a current diagnosis for this admission?: Yes Plan: Continue home medication (8) Hyperlipidemia Qualifiers: Hyperlipidemia type: unspecified Qualified Code(s): E78.5 - Hyperlipidemia, unspecified Is this a current diagnosis for this admission?: Yes Plan: Continue home medication
--- NOTE | 2018-11-07 14:49 | PDOC PROGRESS REPORT ---
Subjective Progress Note for:: 11/07/18 Subjective:: Complains of leg and foot pain only when the right leg moved. Still in ICU awaiting transfer to floor bed when available Reason For Visit: DKA, DM FOOT, UTI Physical Exam Vital Signs: Temp Pulse Resp BP Pulse Ox 99.5 F 99 16 117/48 L 98 11/07/18 12:00 11/07/18 12:00 11/07/18 12:00 11/07/18 12:00 11/07/18 12:00 Intake & Output 11/06/18 11/07/18 11/08/18 06:59 06:59 06:59 Intake Total 1350 1300 2600 Output Total 1000 500 200 Balance 375 556 3849 Weight 63.4 kg 64.3 kg General appearance: PRESENT: no acute distress Musculoskeletal exam: PRESENT: other - Dressing removed right foot. The foot is room temperature; there is a right posterior tibial pulse Doppler, no Doppler do rsalis pedis pulse. The gaping wound with exposed tendons at the site of amputation 48 hours ago is clean with a perimeter of some nonviable skin, no yannick smell; no granulation tissue. Results Laboratory Results: 11/07/18 07:03 11/07/18 07:03 11/06/18 11/06/18 11/06/18 14:43 19:00 23:07 WBC RBC Hgb Hct MCV MCH MCHC RDW Plt Count Seg Neutrophils % Lymphocytes % Monocytes % Eosinophils % Basophils % Absolute Neutrophils Absolute Lymphocytes Absolute Monocytes Absolute Eosinophils Absolute Basophils Sodium 130.8 L 133.3 L 128.9 L Potassium 3.9 4.1 4.4 Chloride 100 97 L 97 L Carbon Dioxide 24 23 23 Anion Gap 7 13 9 BUN 10 9 10 Creatinine 0.64 0.66 0.62 Est GFR ( Amer) > 60 > 60 > 60 Est GFR (Non-Af Amer) > 60 > 60 > 60 Glucose 225 H 250 H 297 H Calcium 8.9 9.6 9.1 11/07/18 11/07/18 11/07/18 02:57 07:03 07:03 WBC 12.2 H RBC 2.90 L Hgb 8.4 L Hct 24.4 L MCV 84 MCH 29.0 MCHC 34.5 RDW 13.8 Plt Count 405 Seg Neutrophils % 77.8 Lymphocytes % 14.4 Monocytes % 6.3 Eosinophils % 1.0 Basophils % 0.5 Absolute Neutrophils 9.5 H Absolute Lymphocytes 1.8 Absolute Monocytes 0.8 Absolute Eosinophils 0.1 Absolute Basophils 0.1 Sodium 133.0 L 133.3 L Potassium 4.2 4.3 Chloride 96 L 98 Carbon Dioxide 24 24 Anion Gap 13 11 BUN 9 9 Creatinine 0.68 0.64 Est GFR ( Amer) > 60 > 60 Est GFR (Non-Af Amer) > 60 > 60 Glucose 253 H 230 H Calcium 9.5 9.1 11/05/18 19:07 CK-MB (CK-2) 0.58 Impressions: Foot X-Ray 11/05/18 18:39 IMPRESSION: Subcutaneous gas in the soft tissues of the right foot in the midfoot and forefoot. This is suspicious for necrotic infection. Correlate clinically. Head CT 11/05/18 18:44 IMPRESSION: Stable left parietal infarction. No acute intracranial imaging findings. EVIDENCE OF ACUTE STROKE: NO. Ribs w/Chest X-Ray 11/05/18 18:44 IMPRESSION: No evidence for left rib fracture. Assessment & Plan - Diagnosis (1) Right foot cellulitis and dry gangrene Is this a current diagnosis for this admission?: Yes Plan: Impression: Patient is 48 hours status post aggressive right foot debridement with resection of toes 3 4 and 5, and lateral aspect of forefoot with no eviden ce of granulation tissue. She is diabetic, hypo-albumin anemic, history of CVAs; diminished circulation and foot very concerning for peripheral vascular disease impairing wound healing Recommendations: 1. We will obtain arterial duplex study of the right lower extremity. 2. We will add multivitamins and increase diet components according to dietary recommendations. 3. We are very pessimistic this wound will heal given patient's multiple comorbidities; Await results of arterial duplex study, and subsequently determine patient's candidacy for revascularization versus higher level amputa tion.
[2018-11-07] MEDS: ACETAMINOPHEN 325 MG TABLET PO PRN (23:27)
[2018-11-08 06:10] LABS: ABSOLUTE BASOPHILS # (AUTO) 0.1 10^3/uL (0.0-0.2); ABSOLUTE EOSINOPHILS # (AUTO) 0.1 10^3/uL (0.0-0.6); ABSOLUTE LYMPHOCYTES (AUTO) 1.5 10^3/uL (0.5-4.7); ABSOLUTE MONOCYTES (AUTO) 0.8 10^3/uL (0.1-1.4); ABSOLUTE NEUT (AUTO) 10.3 10^3/uL (1.7-8.2); BASOPHILS % (AUTO) 0.6 % (0-2); EOSINOPHILS % (AUTO) 0.7 % (0-6); HEMATOCRIT 26.5 % (36.0-47.0); HEMOGLOBIN 9.2 g/dL (12.0-15.5); LYMPHOCYTES % (AUTO) 11.5 % (13-45); MEAN CORPUSCULAR HEMOGLOBIN 29.1 pg (27.0-33.4); MEAN CORPUSCULAR HGB CONC 34.7 g/dL (32.0-36.0); MEAN CORPUSCULAR VOLUME 84 fl (80-97); PLATELET COUNT 433 10^3/uL (150-450); RED BLOOD COUNT 3.16 10^6/uL (3.72-5.28); RED CELL DISTRIBUTION WIDTH 13.9 % (11.5-14.0); SEGMENTED NEUTROPHILS % (AUTO) 81.2 % (42-78); TOTAL CELLS COUNTED % (AUTO) 100 %; WHITE BLOOD COUNT 12.7 10^3/uL (4.0-10.5)
[2018-11-08] MEDS: HEPARIN SOD (PORCINE) 5,000 UNIT/ML 1 ML SYRINGE SUBCUT SCH ×3 (06:54→23:12)
[2018-11-08 10:48] LABS: VANCOMYCIN,TROUGH 10.2 ug/mL (5.0-20.0)
[2018-11-08] MEDS: CEFEPIME 1 GM/D5W RTU 1 GM/50 ML RTUPB IV SCH (11:12)
[2018-11-08] MEDS: DOCUSATE SODIUM 100 MG CAPSULE PO SCH ×2 (11:13→19:00)
[2018-11-08] MEDS: MORPHINE SULFATE 10 MG/ML INJ IV PRN (11:26)
[2018-11-08] MEDS: INSULIN LISPRO 100 UNIT/ML 3 ML VIAL SUBCUT SCH ×4 (11:33→23:24)
[2018-11-08] MEDS: VANCOMYCIN HCL 750 MG in DEXTROSE 5%-WATER 250 ML IV SCH (12:19)
--- NOTE | 2018-11-08 13:07 | PDOC PROGRESS REPORT ---
Subjective Progress Note for:: 11/08/18 Subjective:: I seen patient lying on her side. She is awake and alert oriented. She complains of right leg pain. Yesterday she was seen by Dr. Pahn who stated that he will request a arterial duplex of the involved leg, in order to determine if she needs amputation or revascularization. Her blood culture grew staph epidermidis in 1 bottle out of 4 bottles. Probably contaminant Reason For Visit: DKA, DM FOOT, UTI Physical Exam Vital Signs: Temp Pulse Resp BP Pulse Ox 97.9 F 96 18 126/61 H 98 11/07/18 23:57 11/07/18 23:57 11/07/18 23:57 11/07/18 23:57 11/07/18 23:57 Intake & Output 11/07/18 11/08/18 11/09/18 06:59 06:59 06:59 Intake Total 1300 3122 50 Output Total 500 650 Balance 800 2472 50 Weight 64.3 kg 64.9 kg General appearance: PRESENT: no acute distress Head exam: PRESENT: atraumatic Eye exam: PRESENT: conjunctiva pink Mouth exam: PRESENT: dry mucosa Teeth exam: PRESENT: dental caries Neck exam: PRESENT: carotid bruit Respiratory exam: PRESENT: clear to auscultation roderick. ABSENT: rales, rhonchi, wheezes Cardiovascular exam: PRESENT: RRR. ABSENT: diastolic murmur, rubs, systolic murmur GI/Abdominal exam: PRESENT: normal bowel sounds, soft. ABSENT: distended, guarding, mass, organolmegaly, rebound, tenderness Neurological exam: PRESENT: alert, awake, oriented to time, oriented to situation Results Laboratory Results: 11/08/18 05:33 11/07/18 07:03 11/08/18 05:33 WBC 12.7 H RBC 3.16 L Hgb 9.2 L Hct 26.5 L MCV 84 MCH 29.1 MCHC 34.7 RDW 13.9 Plt Count 433 Seg Neutrophils % 81.2 H Lymphocytes % 11.5 L Monocytes % 6.0 Eosinophils % 0.7 Basophils % 0.6 Absolute Neutrophils 10.3 H Absolute Lymphocytes 1.5 Absolute Monocytes 0.8 Absolute Eosinophils 0.1 Absolute Basophils 0.1 11/05/18 19:07 CK-MB (CK-2) 0.58 Impressions: Foot X-Ray 11/05/18 18:39 IMPRESSION: Subcutaneous gas in the soft tissues of the right foot in the midfoot and forefoot. This is suspicious for necrotic infection. Correlate clinically. Head CT 11/05/18 18:44 IMPRESSION: Stable left parietal infarction. No acute intracranial imaging findings. EVIDENCE OF ACUTE STROKE: NO. Ribs w/Chest X-Ray 11/05/18 18:44 IMPRESSION: No evidence for left rib fracture. Assessment & Plan - Diagnosis (1) Right foot cellulitis and dry gangrene Is this a current diagnosis for this admission?: Yes Plan: Status post total debridement and amputation of third fourth and fifth toe. Patient needs long-term wound care. Her blood culture is positive for gram-positive cocci. We will continue current antibiotics. (2) Hypokalemia Is this a current diagnosis for this admission?: Yes Plan: Resolved (3) Hyponatremia Is this a current diagnosis for this admission?: Yes Plan: Resolving (4) Metabolic acidosis and hyperglycemia Is this a current diagnosis for this admission?: Yes Plan: Has resolved (5) Complicated UTI (urinary tract infection) Is this a current diagnosis for this admission?: Yes Plan: Her urinalysis is nitrite positive and pyuria. Patient has been on cefepime. (6) Uncontrolled diabetes mellitus Qualifiers: Diabetes mellitus type: type 2 Is this a current diagnosis for this admission?: Yes Plan: Her hemoglobin A1c is 9.6. And reportedly by her daughter patient is noncompliant to see her diet or medication. (7) Hypertension Qualifiers: Hypertension type: essential hypertension Qualified Code(s): I10 - Essential (primary) hypertension Is this a current diagnosis for this admission?: Yes Plan: Continue home medication (8) Hyperlipidemia Qualifiers: Hyperlipidemia type: unspecified Qualified Code(s): E78.5 - Hyperlipidemia, unspecified Is this a current diagnosis for this admission?: Yes Plan: Continue home medication
[2018-11-08] MEDS: MULTIVITAMINS W-IRON TABLET, CHEWABLE PO SCH (13:30)
[2018-11-08] MEDS: ACETAMINOPHEN 325 MG TABLET PO PRN ×2 (13:30→23:26)
[2018-11-08] MEDS ORDERED: HYDROMORPHONE HCL INJ/PF 2 MG/ML AMPULE IV PRN (20:52)
[2018-11-08] MEDS ORDERED: ALPRAZOLAM 0.5 MG TABLET PO ONE (21:30)
--- NOTE | 2018-11-08 22:38 | PDOC PROGRESS REPORT ---
Subjective Progress Note for:: 11/08/18 Subjective:: pains right foot amputation site Reason For Visit: DKA, DM FOOT, UTI Physical Exam Vital Signs: Temp Pulse Resp BP Pulse Ox 98.1 F 101 H 16 121/60 96 11/08/18 15:48 11/08/18 15:48 11/08/18 15:48 11/08/18 15:48 11/08/18 15:48 Intake & Output 11/07/18 11/08/18 11/09/18 06:59 06:59 06:59 Intake Total 1300 3122 750 Output Total 500 650 Balance 800 2472 750 Weight 64.3 kg 64.9 kg Exam: Dressing changed. Very tender just removing and replacing xeroform dressing. Wound appears dry but no granulation tissue. Unable to palpate ankle pulses. And unable to palpate popliteal artery but calf is warm down to ankle. Results Laboratory Results: 11/08/18 05:33 11/07/18 07:03 11/08/18 05:33 WBC 12.7 H RBC 3.16 L Hgb 9.2 L Hct 26.5 L MCV 84 MCH 29.1 MCHC 34.7 RDW 13.9 Plt Count 433 Seg Neutrophils % 81.2 H Lymphocytes % 11.5 L Monocytes % 6.0 Eosinophils % 0.7 Basophils % 0.6 Absolute Neutrophils 10.3 H Absolute Lymphocytes 1.5 Absolute Monocytes 0.8 Absolute Eosinophils 0.1 Absolute Basophils 0.1 11/05/18 19:07 CK-MB (CK-2) 0.58 Impressions: Foot X-Ray 11/05/18 18:39 IMPRESSION: Subcutaneous gas in the soft tissues of the right foot in the midfoot and forefoot. This is suspicious for necrotic infection. Correlate clinically. Head CT 11/05/18 18:44 IMPRESSION: Stable left parietal infarction. No acute intracranial imaging findings. EVIDENCE OF ACUTE STROKE: NO. Ribs w/Chest X-Ray 11/05/18 18:44 IMPRESSION: No evidence for left rib fracture. Assessment & Plan - Time Time Spent with patient: 15-24 minutes - Inpatient Certification Medical Necessity: Need for Pain Control, Need for IV Antibiotics, Need for Surgery - Plan Summary Plan Summary: Arterial doppler study of lower leg unofficially looks decreased flow to ankle. Have discussed options with son and patient. Leaning on BKA since high risk for prolonged anesthesia with revascularization and delayed timing. If infection goes more proximal to ankle area then BKA will not be feasible and likelihood of AKA. Son and patient have agreed to an earlier BKA. I have scheduled patient for BKA tomorrow.Will inform Hospitalist.
[2018-11-09] MEDS: VANCOMYCIN HCL 1,000 MG in DEXTROSE 5%-WATER 250 ML IV SCH ×3 (00:44→19:31)
[2018-11-09] MEDS ORDERED: INSULIN REG, HUMAN 100 UNIT/ML 3 ML VIAL (PYX) IV ONE (00:45)
[2018-11-09] MEDS ORDERED: CEFEPIME 1 GM/D5W RTU 1 GM/50 ML RTUPB IV ONE (02:00)
[2018-11-09 02:34] LABS: HEMATOCRIT 25.9 % (36.0-47.0); HEMOGLOBIN 9.1 g/dL (12.0-15.5); MEAN CORPUSCULAR HEMOGLOBIN 28.9 pg (27.0-33.4); MEAN CORPUSCULAR VOLUME 83 fl (80-97); PLATELET COUNT 449 10^3/uL (150-450); RED BLOOD COUNT 3.13 10^6/uL (3.72-5.28); RED CELL DISTRIBUTION WIDTH 13.8 % (11.5-14.0); WHITE BLOOD COUNT 10.6 10^3/uL (4.0-10.5)
[2018-11-09 02:52] LABS: ABSOLUTE LYMPHOCYTES# (MANUAL) 1.7 10^3/uL (0.5-4.7); ABSOLUTE MONOCYTES # (MANUAL) 0.2 10^3/uL (0.1-1.4); ABSOLUTE NEUTROPHILS# (MANUAL) 8.6 10^3/uL (1.7-8.2); BASOPHILS % (MANUAL) 0 % (0-2); EOSINOPHILS % (MANUAL) 1 % (0-6); LYMPHOCYTES % (MANUAL) 16 % (13-45); MONOCYTES % (MANUAL) 2 % (3-13); PLATELET COMMENT ADEQUATE; RBC MORPHOLOGY COMMENT NORMO-CYTIC/CHROMIC; SEGMENTED NEUTROPHILS % (MAN) 81 % (42-78); TOTAL CELLS COUNTED 100
[2018-11-09 03:20] LABS: ANION GAP 17 (5-19); BLOOD UREA NITROGEN 14 mg/dL (7-20); CALCIUM 9.7 mg/dL (8.4-10.2); CARBON DIOXIDE 20 mmol/L (22-30); CHLORIDE 95 mmol/L (98-107); GLUCOSE 329 mg/dL (75-110); POTASSIUM 3.8 mmol/L (3.6-5.0); SODIUM 131.6 mmol/L (137-145)
[2018-11-09] MEDS: HEPARIN SOD (PORCINE) 5,000 UNIT/ML 1 ML SYRINGE SUBCUT SCH ×3 (05:47→22:52)
[2018-11-09] MEDS ORDERED: NORMAL SALINE 1000 ML 1,000 ML IV PRN (09:34)
[2018-11-09] MEDS: INSULIN LISPRO 100 UNIT/ML 3 ML VIAL SUBCUT SCH ×3 (10:16→22:51)
[2018-11-09] MEDS: CEFEPIME 1 GM/D5W RTU 1 GM/50 ML RTUPB IV SCH ×2 (10:17→22:51)
[2018-11-09] MEDS: MULTIVITAMINS W-IRON TABLET, CHEWABLE PO SCH (10:28)
[2018-11-09] MEDS: DOCUSATE SODIUM 100 MG CAPSULE PO SCH ×2 (10:28→19:30)
[2018-11-09] MEDS ORDERED: ALBUTEROL SULFATE HFA (90 MCG/PUFF) 200 PUFF/8.5 GM MDI IH PRN (10:32)
--- NOTE | 2018-11-09 10:37 | PDOC PROGRESS REPORT ---
Subjective Progress Note for:: 11/09/18 Subjective:: Patient seen and examined at bedside. Her vital signs are within normal limits except for an episode of low-grade fever. Dr. Rosario discussed the necessity of performing BKA with the patient and her son and both agreed. Patient scheduled for BKA this morning. Reason For Visit: DKA, DM FOOT, UTI Physical Exam Vital Signs: Temp Pulse Resp BP Pulse Ox 100.7 F H 108 H 18 116/82 96 11/09/18 00:45 11/09/18 00:45 11/09/18 00:45 11/09/18 00:45 11/09/18 00:45 Intake & Output 11/08/18 11/09/18 11/10/18 06:59 06:59 06:59 Intake Total 3122 1175 Output Total 650 100 Balance 2472 1075 Weight 64.9 kg 65 kg General appearance: PRESENT: no acute distress Head exam: PRESENT: atraumatic Eye exam: PRESENT: conjunctiva pink Mouth exam: PRESENT: neck supple Neck exam: ABSENT: carotid bruit, JVD, lymphadenopathy, thyromegaly Cardiovascular exam: PRESENT: RRR. ABSENT: diastolic murmur, rubs, systolic murmur GI/Abdominal exam: PRESENT: normal bowel sounds, soft. ABSENT: distended, guarding, mass, organolmegaly, rebound, tenderness Neurological exam: PRESENT: alert, awake, oriented to time, oriented to situation Results Laboratory Results: 11/09/18 02:23 11/09/18 02:23 11/09/18 11/09/18 11/09/18 02:23 02:23 02:23 WBC 10.6 H RBC 3.13 L Hgb 9.1 L Hct 25.9 L MCV 83 MCH 28.9 MCHC 35.0 RDW 13.8 Plt Count 449 Seg Neutrophils % Not Reportable Lymphocytes % Not Reportable Monocytes % Not Reportable Eosinophils % Not Reportable Basophils % Not Reportable Absolute Neutrophils Not Reportable Absolute Lymphocytes Not Reportable Absolute Monocytes Not Reportable Absolute Eosinophils Not Reportable Absolute Basophils Not Reportable Sodium 131.6 L Potassium 3.8 Chloride 95 L Carbon Dioxide 20 L Anion Gap 17 BUN 14 Creatinine 0.59 Est GFR ( Amer) > 60 Est GFR (Non-Af Amer) > 60 Glucose 329 H Calcium 9.7 Blood Type O POSITIVE Antibody Screen NEGATIVE 11/05/18 19:07 CK-MB (CK-2) 0.58 Impressions: Foot X-Ray 11/05/18 18:39 IMPRESSION: Subcutaneous gas in the soft tissues of the right foot in the midfoot and forefoot. This is suspicious for necrotic infection. Correlate clinically. Head CT 11/05/18 18:44 IMPRESSION: Stable left parietal infarction. No acute intracranial imaging findings. EVIDENCE OF ACUTE STROKE: NO. Ribs w/Chest X-Ray 11/05/18 18:44 IMPRESSION: No evidence for left rib fracture. Assessment & Plan - Diagnosis (1) Right foot cellulitis and dry gangrene Is this a current diagnosis for this admission?: Yes Plan: Patient scheduled for BKA this morning. We will continue antibiotics (2) Hypokalemia Is this a current diagnosis for this admission?: Yes Plan: Resolved (3) Hyponatremia Is this a current diagnosis for this admission?: Yes Plan: Resolving (4) Metabolic acidosis and hyperglycemia Is this a current diagnosis for this admission?: Yes Plan: Has resolved (5) Complicated UTI (urinary tract infection) Is this a current diagnosis for this admission?: Yes Plan: Her urinalysis is nitrite positive and pyuria. Patient has been on cefepime. (6) Uncontrolled diabetes mellitus Qualifiers: Diabetes mellitus type: type 2 Is this a current diagnosis for this admission?: Yes Plan: Her hemoglobin A1c is 9.6. And reportedly by her daughter patient is noncompliant to see her diet or medication. (7) Hypertension Qualifiers: Hypertension type: essential hypertension Qualified Code(s): I10 - Essential (primary) hypertension Is this a current diagnosis for this admission?: Yes Plan: Continue home medication (8) Hyperlipidemia Qualifiers: Hyperlipidemia type: unspecified Qualified Code(s): E78.5 - Hyperlipidemia, unspecified Is this a current diagnosis for this admission?: Yes Plan: Continue home medication
[2018-11-09] MEDS ORDERED: INSULIN LISPRO 100 UNIT/ML 3 ML VIAL SUBCUT ONE (11:00)
[2018-11-09] MEDS ORDERED: IPRATROPIUM/ALBUTEROL 0.5-2.5 MG/3 ML AMPUL NEB ONE (11:35)
[2018-11-09] MEDS ORDERED: ONDANSETRON HCL INJ/PF 4 MG/2 ML SDV ONE (12:15)
[2018-11-09] MEDS ORDERED: MIDAZOLAM 2 MG/2 ML INJ ONE (12:15)
[2018-11-09] MEDS ORDERED: PROPOFOL INJ 200 MG/20 ML VIAL IV ONE (12:15)
[2018-11-09] MEDS ORDERED: DEXAMETHASONE SOD PHOSPHATE INJ 4 MG/1 ML VIAL ONE (12:15)
[2018-11-09] MEDS ORDERED: FENTANYL CITRATE INJ/PF 100 MCG/2 ML AMPUL ONE (12:15)
[2018-11-09 12:48] LABS: INTERNATIONAL RATION (INR) 1.11; PROTHROMBIN TIME 14.9 SEC (11.4-15.4)
[2018-11-09 12:49] LABS: PARTIAL THROMBOPLASTIN TIME 36.5 SEC (23.5-35.8)
[2018-11-09] MEDS ORDERED: MEPERIDINE HCL/PF INJ 25 MG/1 ML DISP.SYRIN IV PRN (13:27)
[2018-11-09] MEDS ORDERED: DIPHENHYDRAMINE HCL 50 MG/ML VIAL IV PRN (13:27)
[2018-11-09] MEDS ORDERED: MORPHINE SULFATE 10 MG/ML INJ IV PRN (13:27)
[2018-11-09] MEDS ORDERED: FENTANYL CITRATE INJ/PF 100 MCG/2 ML AMPUL IV PRN ×3 (13:27)
[2018-11-09] MEDS ORDERED: PROMETHAZINE HCL INJ 25 MG/1 ML VIAL IV PRN ×2 (13:27)
--- NOTE | 2018-11-09 15:26 | RADIOLOGY REPORT (SQ) ---
EXAM DESCRIPTION: CHEST SINGLE VIEW COMPLETED DATE/TIME: 11/09/2018 3:16 pm REASON FOR STUDY: CENTRAL LINE PLACEMENT CHECK COMPARISON: 07/31/2018 EXAM PARAMETERS: NUMBER OF VIEWS: One view. TECHNIQUE: Single frontal radiographic view of the chest acquired. RADIATION DOSE: NA LIMITATIONS: None. FINDINGS: LUNGS AND PLEURA: No opacities, masses or pneumothorax. No pleural effusion. MEDIASTINUM AND HILAR STRUCTURES: No masses. Contour normal. HEART AND VASCULAR STRUCTURES: Cardiomegaly. Implantable loop recorder. BONES: No acute findings. HARDWARE: None in the chest. OTHER: Right neck vascular catheter, tip projecting over the right atrium. IMPRESSION: Right neck vascular catheter, tip projecting over the right atrium. No acute abnormalit y of the lungs. TECHNICAL DOCUMENTATION: JOB ID: [id number] [employer]- All Rights Reserved Reading location - IP/workstation name: [email or web address]
[2018-11-09] MEDS ORDERED: PHENYLEPHRINE HCL INJ/PF 10 MG/1 ML SDV ONE (15:36)
--- NOTE | 2018-11-09 16:03 | OPERATIVE REPORT E ---
Operative Report NAME: DUSTIN MALDONADO : 1960 AGE: 58Y DATE OF SURGERY: 11/09/2018 ROOM: 537 PREOPERATIVE DIAGNOSES: 1. GANGRENE OF RIGHT FOOT. 2. POST right 3rd to 5th toe and MT AMPUTATIONS. POSTOPERATIVE DIAGNOSES: 1. GANGRENE OF RIGHT FOOT. 2. POST Right 3rd to 5th toe and MT AMPUTATIONS. PROCEDURE: 1. Right below the knee amputation. 2. Central line placement SURGEON: SHERIDAN ARDON M.D. ANESTHESIA: Spinal and local for the central line placement. INDICATION: This is a 58-year-old diabetic female who was noted to have gangrene of the right toes. She was initially taken to the OR on 11/06/18 for emergency amputation of the right toes. The patient did not give any consent for below the knee amputation. Immediately after the first operation she continued to have a lot of pain from the right foot and the amputation site starting to have some gangrenous changes. She had an arterial Doppler which showed decreased flow to the right ankle. The family and the patient finally agreed to have a right below the knee amputation. Procedure was explained to the family as well as the risks mentioned includin bleeding ,continued infection, blood clots as well as pulmonary and cardiac complications. Rhey understand and give their consent.. DESCRIPTION OF PROCEDURE: After a spinal anesthesia the patient was placed in the supine position and the right leg prepped and draped in the usual sterile fashion. Appropriate timeout was then called. A transverse incision was then made over the anterior lower leg about 4 cm below the tibial crest. The skin incision was then extended to both lateral and medial sides to a distance of about twice the lenght of the transverse incision. The incision was then deepened through the fascia with the use of cautery and the venous vessels identified and clipped with hemoclips and divided between the hemoclips. The tibial bone was then scored and periosteum elevated proximally. Some of the anterior muscle and gastrocnemius muscle were further divided transversely with the use of cautery. The tibial bone was subsequently divided transversely with the use of saw. The edges were then rasped. Next further exposure of the fibula was then done and this was then divided close to the level of the tibial amputation site. The peroneal vessels were identified and subsequently ligated with 0 Vicryl ties and also reinforced with a large hemoclip. The anterior tibial artery and vessels were then identified and also ligated with 0 Vicryl ties and divided within the ligatures and reinforced with a hemoclip. The posterior muscles, posterior to the bones, were then divided distally close to the bone and the skin completely divided. Further hemostasis obtained with ligation using 2-0 Vicryl, as well as with the use of cautery. The distal posterior muscles were then further divided close to the skin, which somewhat retracted to make better closure. The area was subsequently irrigated with saline solution and further hemostasis obtained with cautery. All the muscle appeared to be viable. The artery appeared to be calcified. There is no evidence of any inflammation around the muscle area, no edema and no indication of progression of the infection from the foot. Next the fascia layers were then reapproximated using 2-0 Vicryl sutures with posterior gastrocnemius muscle covering the anterior tibial. Prior to this the fibula was then further divided about 2 cm higher than the tibial bone amputation site. The muscles came together nicely and covering the tibial and fibular bones. The skin edges were then reapproximated using yodit. Amputation site was then wrapped with Jaya over Xeroform gauze. A soft roll was then placed around the thigh and the amputation site and 7 layer of 4 inch plaster was then used as a posterior splint and wrapped with Jaya and El bandage. Needle and instrument counts were correct and estimated blood loss was no more than 100 ccs. Attention was then directed to the right neck for central line placement. The right neck was then prepped and draped in the usual sterile fashion. It was released with the ultrasound, the right internal jugular vein was then identified and local anesthesia infiltrated on the skin and the right internal jugular vein subsequently punctured and a guidewire passed through the needle towards the area of the superior vena cava and the needle removed. The puncture site was then dilated and a triple-lumen catheter inserted through the guidewire to a distance of 18 cm. All the 3 ports of the guidewire aspirated blood easily and instilled saline easily. The catheter was then anchored to the skin with 3-0 Nylon. A Biopatch placed at the insertion site. A transparent sterile dressing was then placed over the Biopatch and catheter. Chest x-ray will be taken for placement. Needle, instrument, and sponge count were all correct. The patient then brought to the recovery room in satisfactory condition. DICTATING PHYSICIAN: SHERIDAN ARDON M.D. [id number] PHY#: [id number] ID: [id number] JOB#: [id number] ACCT: [id number] cc:SHERIDAN ARDON M.D. > [facility]
--- NOTE | 2018-11-09 16:07 | XCELERA REPORT ---
[address] [address] Lower Extremity Arterial Evaluation Name: DUSTIN MALDONADO Age: 58 yrs Gender: Female : 1960 Patient Status: [facility] Study Date: 11/07/2018 08:24 PM Procedure: A color flow and duplex scan of the lower extremity arteries was performed on the right with velocity and waveform anaylsis. Reason For Study: Nonhealing foot wound Ordering Physician: ANU SO Performed By: Myla Castellanos Measurements and Calculations Right Left S[employer]OL MANAGER PSV 160.6 cm/sec Prox PFA PSV -125.7 cm/sec Prox SFA PSV 79.6 cm/sec Mid SFA PSV 129.0 cm/sec Mid BETTY PSV 54.4 cm/sec Mid TELEGRAPH OFFICE ROUTE AIDE PSV 15.1 cm/sec Gary Pedis PSV -15.3 cm/sec Right Side Arterial Evaluation Normal velocity and triphasic waveforms noted in the Common Femoral artery. . Biphasic with low normal velocity in the Femoral. The Popliteal not seen due to difficulty with cooperation. Monophasic, low velocity, spectral broadening in the infrageniculate vessels Ankle Brachial index not obtained . Interpretation Summary Severe hemodynamically significant lesions in the right lower extremity only, on duplex imaging, at rest. Culprit areas likely at the Femoral and infrageniculate vessels. : ANU SO > Ovi Cardenas
[2018-11-09] MEDS: GABAPENTIN 300 MG CAPSULE PO SCH ×2 (16:49→22:51)
[2018-11-09] MEDS ORDERED: CELECOXIB 100 MG CAPSULE PO SCH (18:00)
[2018-11-09] MEDS ORDERED: (PENDING PHARMACY ID) (Mometasone/Formoterol [Dulera 100 Mcg/5 Mcg Inhaler] 2 PUFF) IH SCH (18:00)
[2018-11-09] MEDS: BUPROPION HCL 75 MG TABLET PO SCH (19:31)
[2018-11-09] MEDS: MORPHINE SULFATE 10 MG/ML INJ IV PRN (20:34)
[2018-11-09] MEDS: ACETAMINOPHEN 325 MG TABLET PO PRN (20:35)
[2018-11-09] MEDS ORDERED: INSULIN GLARGINE,HUM.REC.ANLOG 300 UNIT/3 ML INSULN.PEN SUBCUT SCH (22:00)
[2018-11-09] MEDS: CARVEDILOL 12.5 MG TABLET PO SCH (22:51)
[2018-11-09] MEDS: MONTELUKAST SODIUM 10 MG TABLET PO SCH (22:51)
[2018-11-09] MEDS: HYDROMORPHONE HCL INJ/PF 2 MG/ML AMPULE IV PRN (22:55)
[2018-11-10] MEDS: HYDROMORPHONE HCL INJ/PF 2 MG/ML AMPULE IV PRN ×2 (01:59→06:28)
[2018-11-10 05:19] LABS: HEMATOCRIT 22.5 % (36.0-47.0); MEAN CORPUSCULAR HEMOGLOBIN 28.8 pg (27.0-33.4); MEAN CORPUSCULAR HGB CONC 34.4 g/dL (32.0-36.0); MEAN CORPUSCULAR VOLUME 84 fl (80-97); PLATELET COUNT 391 10^3/uL (150-450); RED CELL DISTRIBUTION WIDTH 13.8 % (11.5-14.0); WHITE BLOOD COUNT 8.3 10^3/uL (4.0-10.5)
[2018-11-10 05:44] LABS: VANCOMYCIN,TROUGH 22.2 ug/mL (5.0-20.0)
[2018-11-10 05:48] LABS: HEMOGLOBIN 7.8 g/dL (12.0-15.5)
[2018-11-10 05:50] LABS: ANION GAP 11 (5-19); BLOOD UREA NITROGEN 14 mg/dL (7-20); CALCIUM 8.9 mg/dL (8.4-10.2); CARBON DIOXIDE 25 mmol/L (22-30); CHLORIDE 96 mmol/L (98-107); GLUCOSE 279 mg/dL (75-110); POTASSIUM 4.3 mmol/L (3.6-5.0); SODIUM 131.9 mmol/L (137-145)
[2018-11-10 05:51] LABS: ABSOLUTE LYMPHOCYTES# (MANUAL) 1.2 10^3/uL (0.5-4.7); ABSOLUTE MONOCYTES # (MANUAL) 0.3 10^3/uL (0.1-1.4); ABSOLUTE NEUTROPHILS# (MANUAL) 6.8 10^3/uL (1.7-8.2); BASOPHILS % (MANUAL) 0 % (0-2); EOSINOPHILS % (MANUAL) 0 % (0-6); LYMPHOCYTES % (MANUAL) 14 % (13-45); MONOCYTES % (MANUAL) 4 % (3-13); SEGMENTED NEUTROPHILS % (MAN) 82 % (42-78); TOTAL CELLS COUNTED 100
[2018-11-10 05:52] LABS: PLATELET COMMENT ADEQUATE; RBC MORPHOLOGY COMMENT NORMO-CYTIC/CHROMIC
[2018-11-10] MEDS: VANCOMYCIN HCL 1,000 MG in DEXTROSE 5%-WATER 250 ML IV SCH ×2 (06:23→19:22)
[2018-11-10] MEDS: HEPARIN SOD (PORCINE) 5,000 UNIT/ML 1 ML SYRINGE SUBCUT SCH ×3 (06:25→22:07)
[2018-11-10] MEDS: GABAPENTIN 300 MG CAPSULE PO SCH ×3 (06:25→22:07)
[2018-11-10] MEDS ORDERED: NALOXONE HCL INJ/PF 0.4 MG/1 ML SDV ONE ×2 (06:45→07:02)
[2018-11-10] MEDS ORDERED: (PENDING PHARMACY ID) (Bupropion Hcl [Bupropion Xl] 150 MG) PO SCH (08:00)
[2018-11-10] MEDS: INSULIN LISPRO 100 UNIT/ML 3 ML VIAL SUBCUT SCH ×5 (08:34→22:31)
[2018-11-10] MEDS: ACETAMINOPHEN 325 MG TABLET PO PRN (08:58)
[2018-11-10] MEDS: LISINOPRIL 5 MG TABLET PO SCH (10:33)
[2018-11-10] MEDS: CARVEDILOL 12.5 MG TABLET PO SCH ×2 (10:33→22:08)
[2018-11-10] MEDS: CLOPIDOGREL BISULFATE 75 MG TABLET PO SCH (10:34)
[2018-11-10] MEDS: DOCUSATE SODIUM 100 MG CAPSULE PO SCH ×3 (10:34→22:14)
[2018-11-10] MEDS: SITAGLIPTIN PHOSPHATE 50 MG TABLET PO SCH (10:34)
[2018-11-10] MEDS: BUPROPION HCL 75 MG TABLET PO SCH ×2 (10:34→22:07)
[2018-11-10] MEDS: FUROSEMIDE 20 MG TABLET PO SCH (10:34)
[2018-11-10] MEDS: INSULIN GLARGINE,HUM.REC.ANLOG 300 UNIT/3 ML INSULN.PEN SUBCUT SCH ×2 (10:59→22:32)
[2018-11-10] MEDS: MULTIVITAMINS W-IRON TABLET, CHEWABLE PO SCH (10:59)
--- NOTE | 2018-11-10 11:00 | PDOC PROGRESS REPORT ---
Subjective Progress Note for:: 11/10/18 Subjective:: Patient is status post right BKA. This morning patient has an episode of unresponsiveness which she will respond to Narcan and most probably the culprit is the Dilaudid that he has been getting. Dilaudid discontinued and switched to Toradol. Reason For Visit: DKA, DM FOOT, UTI Physical Exam Vital Signs: Temp Pulse Resp BP Pulse Ox 100.1 F 101 H 16 136/53 H 100 11/10/18 07:51 11/10/18 07:51 11/10/18 07:51 11/10/18 07:51 11/10/18 07:51 Intake & Output 11/09/18 11/10/18 11/11/18 06:59 06:59 06:59 Intake Total 1175 2518 1300 Output Total 100 1775 Balance 6173 001 1799 Weight 65 kg 64.7 kg General appearance: PRESENT: no acute distress Head exam: PRESENT: atraumatic Eye exam: PRESENT: conjunctiva pink Mouth exam: PRESENT: moist Neck exam: ABSENT: carotid bruit, JVD, lymphadenopathy, thyromegaly Respiratory exam: PRESENT: clear to auscultation roderick. ABSENT: rales, rhonchi, wheezes Cardiovascular exam: PRESENT: RRR. ABSENT: diastolic murmur, rubs, systolic murmur Extremities exam: PRESENT: other - The right surgical site is dressed. Neurological exam: PRESENT: alert, awake Results Laboratory Results: 11/10/18 04:17 11/10/18 04:17 11/09/18 11/10/18 11/10/18 02:23 04:17 04:17 WBC 8.3 RBC 2.70 L Hgb 7.8 L Hct 22.5 L MCV 84 MCH 28.8 MCHC 34.4 RDW 13.8 Plt Count 391 Seg Neutrophils % Not Reportable Lymphocytes % Not Reportable Monocytes % Not Reportable Eosinophils % Not Reportable Basophils % Not Reportable Absolute Neutrophils Not Reportable Absolute Lymphocytes Not Reportable Absolute Monocytes Not Reportable Absolute Eosinophils Not Reportable Absolute Basophils Not Reportable Sodium 131.9 L Potassium 4.3 Chloride 96 L Carbon Dioxide 25 Anion Gap 11 BUN 14 Creatinine 0.61 Est GFR ( Amer) > 60 Est GFR (Non-Af Amer) > 60 Glucose 279 H Calcium 8.9 Blood Type O POSITIVE Antibody Screen NEGATIVE 11/05/18 19:07 Blood Blood Culture - Final Staphylococcus Hominis 11/05/18 19:07 CK-MB (CK-2) 0.58 Impressions: Foot X-Ray 11/05/18 18:39 IMPRESSION: Subcutaneous gas in the soft tissues of the right foot in the midfoot and forefoot. This is suspicious for necrotic infection. Correlate clinically. Head CT 11/05/18 18:44 IMPRESSION: Stable left parietal infarction. No acute intracranial imaging findings. EVIDENCE OF ACUTE STROKE: NO. Ribs w/Chest X-Ray 11/05/18 18:44 IMPRESSION: No evidence for left rib fracture. Chest X-Ray 11/09/18 00:00 IMPRESSION: Right neck vascular catheter, tip projecting over the right atrium. No acute abnormality of the lungs. Assessment & Plan - Diagnosis (1) Right foot cellulitis and dry gangrene Is this a current diagnosis for this admission?: Yes Plan: Status post BKA. I will discontinue her antibiotics after 48 hours. (2) Hypokalemia Is this a current diagnosis for this admission?: Yes Plan: Resolved (3) Hyponatremia Is this a current diagnosis for this admission?: Yes Plan: Resolving (4) Metabolic acidosis and hyperglycemia Is this a current diagnosis for this admission?: Yes Plan: Has resolved (5) Complicated UTI (urinary tract infection) Is this a current diagnosis for this admission?: Yes Plan: Her urinalysis is nitrite positive and pyuria. Patient has been on cefepime. (6) Uncontrolled diabetes mellitus Qualifiers: Diabetes mellitus type: type 2 Is this a current diagnosis for this admission?: Yes Plan: Her hemoglobin A1c is 9.6. And reportedly by her daughter patient is noncompliant to see her diet or medication. (7) Hypertension Qualifiers: Hypertension type: essential hypertension Qualified Code(s): I10 - Essential (primary) hypertension Is this a current diagnosis for this admission?: Yes Plan: Continue home medication (8) Hyperlipidemia Qualifiers: Hyperlipidemia type: unspecified Qualified Code(s): E78.5 - Hyperlipidemia, unspecified Is this a current diagnosis for this admission?: Yes
--- NOTE | 2018-11-10 11:39 | PDOC PROGRESS REPORT ---
Subjective Progress Note for:: 11/10/18 Subjective:: Patient had some respiratory depression due to over; responded to rapid response team including Narcan; no complaints this morning Reason For Visit: DKA, DM FOOT, UTI Physical Exam Vital Signs: Temp Pulse Resp BP Pulse Ox 100.1 F 101 H 16 136/53 H 100 11/10/18 07:51 11/10/18 07:51 11/10/18 07:51 11/10/18 07:51 11/10/18 07:51 Intake & Output 11/09/18 11/10/18 11/11/18 06:59 06:59 06:59 Intake Total 1175 2518 1300 Output Total 100 1775 Balance 4236 252 8293 Weight 65 kg 64.7 kg General appearance: PRESENT: no acute distress - Is now awake alert and communicating with her mother at bedside Musculoskeletal exam: PRESENT: other - Stump dressing dry and intact. Results Laboratory Results: 11/10/18 04:17 11/10/18 04:17 11/09/18 11/10/18 11/10/18 02:23 04:17 04:17 WBC 8.3 RBC 2.70 L Hgb 7.8 L Hct 22.5 L MCV 84 MCH 28.8 MCHC 34.4 RDW 13.8 Plt Count 391 Seg Neutrophils % Not Reportable Lymphocytes % Not Reportable Monocytes % Not Reportable Eosinophils % Not Reportable Basophils % Not Reportable Absolute Neutrophils Not Reportable Absolute Lymphocytes Not Reportable Absolute Monocytes Not Reportable Absolute Eosinophils Not Reportable Absolute Basophils Not Reportable Sodium 131.9 L Potassium 4.3 Chloride 96 L Carbon Dioxide 25 Anion Gap 11 BUN 14 Creatinine 0.61 Est GFR ( Amer) > 60 Est GFR (Non-Af Amer) > 60 Glucose 279 H Calcium 8.9 Blood Type O POSITIVE Antibody Screen NEGATIVE 11/05/18 19:07 Blood Blood Culture - Final Staphylococcus Hominis 11/05/18 19:07 CK-MB (CK-2) 0.58 Impressions: Foot X-Ray 11/05/18 18:39 IMPRESSION: Subcutaneous gas in the soft tissues of the right foot in the midfoot and forefoot. This is suspicious for necrotic infection. Correlate clinically. Head CT 11/05/18 18:44 IMPRESSION: Stable left parietal infarction. No acute intracranial imaging findings. EVIDENCE OF ACUTE STROKE: NO. Ribs w/Chest X-Ray 11/05/18 18:44 IMPRESSION: No evidence for left rib fracture. Chest X-Ray 11/09/18 00:00 IMPRESSION: Right neck vascular catheter, tip projecting over the right atrium. No acute abnormality of the lungs. Assessment & Plan - Diagnosis (1) Right foot cellulitis and dry gangrene Is this a current diagnosis for this admission?: Yes Plan: Impression: Patient is 1 day status post right BKA amputation, no complications from a operative standpoint; oversedated with narcotics, now recovered after Narcan Recommendations: 1. Continue medical therapy per hospitalist team 2. Physical therapy consultation ordered
[2018-11-10] MEDS: CEFEPIME 1 GM/D5W RTU 1 GM/50 ML RTUPB IV SCH ×2 (12:00→22:12)
[2018-11-10] MEDS: KETOROLAC TROMETHAMINE INJ/PF 30 MG/1 ML SDV IV SCH ×2 (12:46→21:07)
[2018-11-10] MEDS: MONTELUKAST SODIUM 10 MG TABLET PO SCH (22:08)
[2018-11-11] MEDS: KETOROLAC TROMETHAMINE INJ/PF 30 MG/1 ML SDV IV SCH ×4 (00:05→17:16)
[2018-11-11 04:15] LABS: HEMATOCRIT 27.2 % (36.0-47.0); HEMOGLOBIN 9.4 g/dL (12.0-15.5); MEAN CORPUSCULAR HEMOGLOBIN 28.8 pg (27.0-33.4); MEAN CORPUSCULAR HGB CONC 34.6 g/dL (32.0-36.0); MEAN CORPUSCULAR VOLUME 83 fl (80-97); PLATELET COUNT 325 10^3/uL (150-450); RED BLOOD COUNT 3.26 10^6/uL (3.72-5.28); RED CELL DISTRIBUTION WIDTH 14.8 % (11.5-14.0); WHITE BLOOD COUNT 8.8 10^3/uL (4.0-10.5)
[2018-11-11 04:34] LABS: ANION GAP 11 (5-19); BLOOD UREA NITROGEN 19 mg/dL (7-20); CALCIUM 8.9 mg/dL (8.4-10.2); CARBON DIOXIDE 23 mmol/L (22-30); CHLORIDE 102 mmol/L (98-107); GLUCOSE 171 mg/dL (75-110); POTASSIUM 3.7 mmol/L (3.6-5.0); SODIUM 135.7 mmol/L (137-145)
[2018-11-11 04:44] LABS: ABSOLUTE LYMPHOCYTES# (MANUAL) 1.2 10^3/uL (0.5-4.7); ABSOLUTE MONOCYTES # (MANUAL) 0.8 10^3/uL (0.1-1.4); ABSOLUTE NEUTROPHILS# (MANUAL) 6.5 10^3/uL (1.7-8.2); BAND NEUTROPHILS % (MANUAL) 3 % (3-5); BASOPHILS % (MANUAL) 1 % (0-2); EOSINOPHILS % (MANUAL) 2 % (0-6); LYMPHOCYTES % (MANUAL) 14 % (13-45); MONOCYTES % (MANUAL) 9 % (3-13); SEGMENTED NEUTROPHILS % (MAN) 71 % (42-78); TOTAL CELLS COUNTED 100
[2018-11-11 04:47] LABS: ANISOCYTOSIS SLIGHT; OVALOCYTES 1+; PLATELET COMMENT ADEQUATE; POLYCHROMASIA SLIGHT
[2018-11-11 04:48] LABS: TOXIC VACUOLATION PRESENT
[2018-11-11] MEDS: HEPARIN SOD (PORCINE) 5,000 UNIT/ML 1 ML SYRINGE SUBCUT SCH ×3 (05:33→22:30)
[2018-11-11] MEDS: GABAPENTIN 300 MG CAPSULE PO SCH ×3 (05:34→22:36)
[2018-11-11] MEDS: VANCOMYCIN HCL 1,000 MG in DEXTROSE 5%-WATER 250 ML IV SCH ×2 (05:35→17:15)
[2018-11-11] MEDS: INSULIN LISPRO 100 UNIT/ML 3 ML VIAL SUBCUT SCH ×4 (08:57→22:31)
[2018-11-11] MEDS: CEFEPIME 1 GM/D5W RTU 1 GM/50 ML RTUPB IV SCH ×2 (09:46→22:36)
[2018-11-11] MEDS: BUPROPION HCL 75 MG TABLET PO SCH ×2 (09:47→17:16)
[2018-11-11] MEDS: LISINOPRIL 5 MG TABLET PO SCH (09:47)
[2018-11-11] MEDS: SITAGLIPTIN PHOSPHATE 50 MG TABLET PO SCH (09:47)
[2018-11-11] MEDS: FUROSEMIDE 20 MG TABLET PO SCH (09:47)
[2018-11-11] MEDS: CLOPIDOGREL BISULFATE 75 MG TABLET PO SCH (09:48)
[2018-11-11] MEDS: MULTIVITAMINS W-IRON TABLET, CHEWABLE PO SCH (09:48)
[2018-11-11] MEDS: DOCUSATE SODIUM 100 MG CAPSULE PO SCH ×2 (09:48→17:16)
[2018-11-11] MEDS: CARVEDILOL 12.5 MG TABLET PO SCH ×2 (09:48→22:29)
[2018-11-11] MEDS: INSULIN GLARGINE,HUM.REC.ANLOG 300 UNIT/3 ML INSULN.PEN SUBCUT SCH ×2 (09:48→22:34)
[2018-11-11] MEDS ORDERED: HYDROMORPHONE HCL INJ/PF 2 MG/ML AMPULE IV ONE (10:00)
--- NOTE | 2018-11-11 10:28 | PDOC PROGRESS REPORT ---
Subjective Progress Note for:: 11/11/18 Subjective:: This is 58 years old female patient with multiple comorbidities including CHF, hypertension, hyperlipidemia presented with chief complaint of weakness and hyperglycemia. Patient also found to have dry gangrene of the right third fourth and fifth digits and Dr. Morin took the patient to the OR and performed amputation of the above-mentioned digits. Patient has been on vancomycin and cefepime. Her arterial duplex reportedly shows P of circulation. Since patient has extensive wound which does not heal without BKA, so patient undergone BKA yesterday. She tolerated the procedure well. Yesterday she had an episode of unresponsiveness secondary to opioid oversedation and she responded well to Narcan. Since the septic focus removed with the BKA I think antibiotics can be stopped after 24 hours. Reason For Visit: DKA, DM FOOT, UTI Physical Exam Vital Signs: Temp Pulse Resp BP Pulse Ox 98.0 F 81 16 145/56 H 100 11/11/18 08:00 11/11/18 08:00 11/11/18 08:00 11/11/18 08:00 11/11/18 08:00 Intake & Output 11/10/18 11/11/18 11/12/18 06:59 06:59 06:59 Intake Total 2518 2513 250 Output Total 1775 1200 Balance 743 1313 250 Weight 64.7 kg 64.7 kg General appearance: PRESENT: no acute distress Head exam: PRESENT: atraumatic, normocephalic Teeth exam: PRESENT: poor dentation Neck exam: ABSENT: carotid bruit, JVD, lymphadenopathy, thyromegaly Respiratory exam: PRESENT: clear to auscultation roderick. ABSENT: rales, rhonchi, wheezes GI/Abdominal exam: PRESENT: normal bowel sounds, soft. ABSENT: distended, guarding, mass, organolmegaly, rebound, tenderness Neurological exam: PRESENT: alert, awake, oriented to time, oriented to situation Results Laboratory Results: 11/11/18 04:00 11/11/18 04:00 11/09/18 11/11/18 11/11/18 02:23 04:00 04:00 WBC 8.8 RBC 3.26 L Hgb 9.4 L Hct 27.2 L MCV 83 MCH 28.8 MCHC 34.6 RDW 14.8 H Plt Count 325 Seg Neutrophils % Not Reportable Lymphocytes % Not Reportable Monocytes % Not Reportable Eosinophils % Not Reportable Basophils % Not Reportable Absolute Neutrophils Not Reportable Absolute Lymphocytes Not Reportable Absolute Monocytes Not Reportable Absolute Eosinophils Not Reportable Absolute Basophils Not Reportable Sodium 135.7 L Potassium 3.7 Chloride 102 Carbon Dioxide 23 Anion Gap 11 BUN 19 Creatinine 0.71 Est GFR ( Amer) > 60 Est GFR (Non-Af Amer) > 60 Glucose 171 H Calcium 8.9 Blood Type O POSITIVE Antibody Screen NEGATIVE 11/05/18 20:00 Blood Blood Culture - Final NO GROWTH IN 5 DAYS 11/05/18 19:07 Blood Blood Culture - Final Staphylococcus Hominis 11/05/18 19:07 CK-MB (CK-2) 0.58 Impressions: Foot X-Ray 11/05/18 18:39 IMPRESSION: Subcutaneous gas in the soft tissues of the right foot in the midfoot and forefoot. This is suspicious for necrotic infection. Correlate clinically. Head CT 11/05/18 18:44 IMPRESSION: Stable left parietal infarction. No acute intracranial imaging findings. EVIDENCE OF ACUTE STROKE: NO. Ribs w/Chest X-Ray 11/05/18 18:44 IMPRESSION: No evidence for left rib fracture. Chest X-Ray 11/09/18 00:00 IMPRESSION: Right neck vascular catheter, tip projecting over the right atrium. No acute abnormality of the lungs. Assessment & Plan - Diagnosis (1) Right foot cellulitis and dry gangrene Is this a current diagnosis for this admission?: Yes Plan: Status post right BKA (2) Hypokalemia Is this a current diagnosis for this admission?: Yes Plan: Resolved (3) Hyponatremia Is this a current diagnosis for this admission?: Yes Plan: Resolving (4) Metabolic acidosis and hyperglycemia Is this a current diagnosis for this admission?: Yes Plan: Has resolved (5) Complicated UTI (urinary tract infection) Is this a current diagnosis for this admission?: Yes Plan: Her urinalysis is nitrite positive and pyuria. Patient has been on cefepime. (6) Uncontrolled diabetes mellitus Qualifiers: Diabetes mellitus type: type 2 Is this a current diagnosis for this admission?: Yes Plan: Her hemoglobin A1c is 9.6. And reportedly by her daughter patient is noncompliant to see her diet or medication. (7) Hypertension Qualifiers: Hypertension type: essential hypertension Qualified Code(s): I10 - Essential (primary) hypertension Is this a current diagnosis for this admission?: Yes Plan: Continue home medication (8) Hyperlipidemia Qualifiers: Hyperlipidemia type: unspecified Qualified Code(s): E78.5 - Hyperlipidemia, unspecified Is this a current diagnosis for this admission?: Yes Plan: Continue home medication
[2018-11-11] MEDS: FLUTICASONE/VILANTEROL 100-25 MCG/DOSE IH SCH (11:54)
--- NOTE | 2018-11-11 16:16 | PDOC PROGRESS REPORT ---
Subjective Progress Note for:: 11/11/18 Subjective:: pains right BKA Reason For Visit: DKA, DM FOOT, UTI Physical Exam Vital Signs: Temp Pulse Resp BP Pulse Ox 98.4 F 87 16 140/53 H 100 11/11/18 11:19 11/11/18 11:19 11/11/18 11:19 11/11/18 11:19 11/11/18 11:19 Intake & Output 11/10/18 11/11/18 11/12/18 06:59 06:59 06:59 Intake Total 2518 2513 300 Output Total 1775 1200 Balance 743 1313 300 Weight 64.7 kg 64.7 kg 64.7 kg Exam: Right BKA stump looks good. Splint re-applied Results Laboratory Results: 11/11/18 04:00 11/11/18 04:00 11/09/18 11/11/18 11/11/18 02:23 04:00 04:00 WBC 8.8 RBC 3.26 L Hgb 9.4 L Hct 27.2 L MCV 83 MCH 28.8 MCHC 34.6 RDW 14.8 H Plt Count 325 Seg Neutrophils % Not Reportable Lymphocytes % Not Reportable Monocytes % Not Reportable Eosinophils % Not Reportable Basophils % Not Reportable Absolute Neutrophils Not Reportable Absolute Lymphocytes Not Reportable Absolute Monocytes Not Reportable Absolute Eosinophils Not Reportable Absolute Basophils Not Reportable Sodium 135.7 L Potassium 3.7 Chloride 102 Carbon Dioxide 23 Anion Gap 11 BUN 19 Creatinine 0.71 Est GFR ( Amer) > 60 Est GFR (Non-Af Amer) > 60 Glucose 171 H Calcium 8.9 Blood Type O POSITIVE Antibody Screen NEGATIVE 11/05/18 20:00 Blood Blood Culture - Final NO GROWTH IN 5 DAYS 11/05/18 19:07 CK-MB (CK-2) 0.58 Impressions: Foot X-Ray 11/05/18 18:39 IMPRESSION: Subcutaneous gas in the soft tissues of the right foot in the midfoot and forefoot. This is suspicious for necrotic infection. Correlate clinically. Head CT 11/05/18 18:44 IMPRESSION: Stable left parietal infarction. No acute intracranial imaging fin dings. EVIDENCE OF ACUTE STROKE: NO. Ribs w/Chest X-Ray 11/05/18 18:44 IMPRESSION: No evidence for left rib fracture. Chest X-Ray 11/09/18 00:00 IMPRESSION: Right neck vascular catheter, tip projecting over the right atrium. No acute abnormality of the lungs. Assessment & Plan - Plan Summary Plan Summary: Continue antibiotics Arrange transfer to rehab
[2018-11-11] MEDS: ACETAMINOPHEN 325 MG TABLET PO PRN (16:32)
[2018-11-11] MEDS: MONTELUKAST SODIUM 10 MG TABLET PO SCH (22:36)
[2018-11-12] MEDS: KETOROLAC TROMETHAMINE INJ/PF 30 MG/1 ML SDV IV SCH ×5 (00:38→23:09)
[2018-11-12] MEDS: HEPARIN SOD (PORCINE) 5,000 UNIT/ML 1 ML SYRINGE SUBCUT SCH ×4 (05:21→23:27)
[2018-11-12] MEDS: GABAPENTIN 300 MG CAPSULE PO SCH ×3 (05:22→23:07)
[2018-11-12] MEDS: VANCOMYCIN HCL 1,000 MG in DEXTROSE 5%-WATER 250 ML IV SCH (05:23)
[2018-11-12 06:56] LABS: ABSOLUTE EOSINOPHILS # (AUTO) 0.3 10^3/uL (0.0-0.6); ABSOLUTE LYMPHOCYTES (AUTO) 1.2 10^3/uL (0.5-4.7); ABSOLUTE MONOCYTES (AUTO) 0.6 10^3/uL (0.1-1.4); ABSOLUTE NEUT (AUTO) 5.8 10^3/uL (1.7-8.2); BASOPHILS % (AUTO) 0.4 % (0-2); EOSINOPHILS % (AUTO) 3.2 % (0-6); HEMATOCRIT 27.3 % (36.0-47.0); HEMOGLOBIN 9.6 g/dL (12.0-15.5); LYMPHOCYTES % (AUTO) 14.8 % (13-45); MEAN CORPUSCULAR HEMOGLOBIN 29.1 pg (27.0-33.4); MEAN CORPUSCULAR HGB CONC 35.2 g/dL (32.0-36.0); MEAN CORPUSCULAR VOLUME 83 fl (80-97); PLATELET COUNT 337 10^3/uL (150-450); RED BLOOD COUNT 3.31 10^6/uL (3.72-5.28); RED CELL DISTRIBUTION WIDTH 14.7 % (11.5-14.0); SEGMENTED NEUTROPHILS % (AUTO) 73.6 % (42-78); TOTAL CELLS COUNTED % (AUTO) 100 %; WHITE BLOOD COUNT 7.8 10^3/uL (4.0-10.5)
[2018-11-12 07:18] LABS: VANCOMYCIN,TROUGH 21.5 ug/mL (5.0-20.0)
[2018-11-12] MEDS: CEFEPIME 1 GM/D5W RTU 1 GM/50 ML RTUPB IV SCH (11:14)
[2018-11-12] MEDS: LISINOPRIL 5 MG TABLET PO SCH (11:15)
[2018-11-12] MEDS: FUROSEMIDE 20 MG TABLET PO SCH (11:15)
[2018-11-12] MEDS: SITAGLIPTIN PHOSPHATE 50 MG TABLET PO SCH (11:15)
[2018-11-12] MEDS: DOCUSATE SODIUM 100 MG CAPSULE PO SCH ×2 (11:15→17:19)
[2018-11-12] MEDS: INSULIN LISPRO 100 UNIT/ML 3 ML VIAL SUBCUT SCH ×4 (11:16→22:59)
[2018-11-12] MEDS: CARVEDILOL 12.5 MG TABLET PO SCH ×2 (11:16→23:06)
[2018-11-12] MEDS: BUPROPION HCL 75 MG TABLET PO SCH ×2 (11:16→17:19)
[2018-11-12] MEDS: CLOPIDOGREL BISULFATE 75 MG TABLET PO SCH (11:16)
[2018-11-12] MEDS: MULTIVITAMINS W-IRON TABLET, CHEWABLE PO SCH (11:16)
[2018-11-12] MEDS: FLUTICASONE/VILANTEROL 100-25 MCG/DOSE IH SCH (11:29)
[2018-11-12] MEDS: INSULIN GLARGINE,HUM.REC.ANLOG 300 UNIT/3 ML INSULN.PEN SUBCUT SCH ×2 (11:29→23:03)
[2018-11-12] MEDS ORDERED: POLYETHYLENE GLYCOL 3350 POWDER 17 GM/1 PACKET PO ONE ×2 (13:36→18:00)
[2018-11-12] MEDS: FERROUS SULFATE 325 MG TABLET PO SCH (17:19)
--- NOTE | 2018-11-12 19:35 | PDOC PROGRESS REPORT ---
Subjective Progress Note for:: 11/12/18 Subjective:: Patient lying in bed. Depressed affect. Does not appear to be in acute distress. Reason For Visit: DKA, DM FOOT, UTI Physical Exam Vital Signs: Temp Pulse Resp BP Pulse Ox 98.7 F 96 16 148/60 H 96 11/12/18 11:36 11/12/18 11:36 11/12/18 11:36 11/12/18 11:36 11/12/18 11:36 Intake & Output 11/11/18 11/12/18 11/13/18 06:59 06:59 06:59 Intake Total 2513 1930 Output Total 1200 600 Balance 1313 1330 Weight 64.7 kg 63.2 kg General appearance: PRESENT: no acute distress, cooperative, well-developed Head exam: PRESENT: atraumatic, normocephalic Eye exam: PRESENT: conjunctiva pale. ABSENT: scleral icterus Ear exam: PRESENT: normal external ear exam Mouth exam: PRESENT: moist, tongue midline Teeth exam: PRESENT: poor dentation Neck exam: ABSENT: carotid bruit, JVD, lymphadenopathy Respiratory exam: PRESENT: clear to auscultation roderick, symmetrical, unlabored. ABSENT: accessory muscle use, rales, rhonchi, wheezes Cardiovascular exam: PRESENT: RRR, +S1, +S2 GI/Abdominal exam: PRESENT: normal bowel sounds, soft. ABSENT: distended, tenderness Rectal exam: PRESENT: deferred Gentrourinary exam: PRESENT: indwelling catheter Extremities exam: PRESENT: other - New right below-knee amputation Neurological exam: PRESENT: alert, awake, oriented to person, oriented to place, oriented to situation Psychiatric exam: PRESENT: flat affect. ABSENT: agitated, anxious Focused psych exam: ABSENT: delusional, restlessness Skin exam: PRESENT: dry, warm, other - Did not unwrap the surgical site.. ABSENT: abrasion, rash Results Laboratory Results: 11/12/18 05:50 11/12/18 05:50 11/12/18 11/12/18 05:50 05:50 WBC 7.8 RBC 3.31 L Hgb 9.6 L Hct 27.3 L MCV 83 MCH 29.1 MCHC 35.2 RDW 14.7 H Plt Count 337 Seg Neutrophils % 73.6 Lymphocytes % 14.8 Monocytes % 8.0 Eosinophils % 3.2 Basophils % 0.4 Absolute Neutrophils 5.8 Absolute Lymphocytes 1.2 Absolute Monocytes 0.6 Absolute Eosinophils 0.3 Absolute Basophils 0.0 Creatinine 0.58 Est GFR ( Amer) > 60 Est GFR (Non-Af Amer) > 60 11/05/18 19:07 CK-MB (CK-2) 0.58 Impressions: Foot X-Ray 11/05/18 18:39 IMPRESSION: Subcutaneous gas in the soft tissues of the right foot in the midfoot and forefoot. This is suspicious for necrotic infection. Correlate clinically. Head CT 11/05/18 18:44 IMPRESSION: Stable left parietal infarction. No acute intracranial imaging findings. EVIDENCE OF ACUTE STROKE: NO. Ribs w/Chest X-Ray 11/05/18 18:44 IMPRESSION: No evidence for left rib fracture. Chest X-Ray 11/09/18 00:00 IMPRESSION: Right neck vascular catheter, tip projecting over the right atrium. No acute abnormality of the lungs. Assessment and Plan - Diagnosis (1) Right foot cellulitis and dry gangrene Is this a current diagnosis for this admission?: Yes Plan: 11/12/18 19:29 The patient had successful right below-knee amputation. As the infected tissue is been removed I have discontinued antibiotic therapy. The patient is scared with regard to physical therapy. I strongly encouraged her to get out of bed and try her best. Simple things like stand pivot transfer to the commode will make using a bedpan unnecessary. She only sat at the edge of the bed yesterday. (2) Hypokalemia Is this a current diagnosis for this admission?: Yes Plan: 11/12/18 19:31 Resolved. Monitor potassium and supplement accordingly. (3) Hyponatremia Is this a current diagnosis for this admission?: Yes Plan: 11/12/18 19:31 Sodium still slightly below the lower limit normal. Continue to monitor. No acute intervention at this time. (4) Uncontrolled diabetes mellitus Qualifiers: Diabetes mellitus type: type 2 Is this a current diagnosis for this admission?: Yes Plan: 11/12/18 19:31 Her Accu-Cheks are still high. I increased her Lantus again. Monitor sliding scale coverage and adjust Lantus accordingly. She is also on sitagliptin. 11/12/18 19:32 (5) Hypertension Qualifiers: Hypertension type: essential hypertension Qualified Code(s): I10 - Essential (primary) hypertension Is this a current diagnosis for this admission?: Yes Plan: 11/12/18 19:32 Blood pressures not ideally controlled however pain is contributing to fluctuations. Continue current medication regimen at this time. (6) Hyperlipidemia Qualifiers: Hyperlipidemia type: unspecified Qualified Code(s): E78.5 - Hyperlipidemia, unspecified Is this a current diagnosis for this admission?: Yes Plan: 11/12/18 19:33 Stable. Continue home medication regimen. (7) Metabolic acidosis and hyperglycemia Is this a current diagnosis for this admission?: Yes Plan: 11/12/18 19:33 Resolved. (8) UTI (urinary tract infection) Qualifiers: Urinary tract infection type: acute cystitis Is this a current diagnosis for this admission?: Yes Plan: 11/12/18 19:33 The patient had a positive urinalysis with many white blood cells. Unfortunately a urine specimen was not submitted to microbiology. She did complete a course of antibiotics. Her Lopez catheter is being removed. - Time Time Spent with patient: 15-24 minutes - Plan Summary Plan Summary: Encourage out of bed discontinue Lopez constipation
[2018-11-12] MEDS: MELATONIN 5 MG TABLET PO SCH (23:06)
[2018-11-12] MEDS: MONTELUKAST SODIUM 10 MG TABLET PO SCH (23:07)
--- NOTE | 2018-11-13 01:50 | PDOC PROGRESS REPORT ---
Subjective Progress Note for:: 11/12/18 Subjective:: no pains Reason For Visit: DKA, DM FOOT, UTI Physical Exam Vital Signs: Temp Pulse Resp BP Pulse Ox 98.8 F 90 18 142/58 H 97 11/12/18 19:12 11/12/18 19:12 11/12/18 19:12 11/12/18 19:12 11/12/18 19:12 Intake & Output 11/11/18 11/12/18 11/13/18 06:59 06:59 06:59 Intake Total 2513 1930 400 Output Total 1200 600 600 Balance 1313 1330 -200 Weight 64.7 kg 63.2 kg Exam: right leg on a posterior splint to prevent knee contracture for eventual prosthesis use Afebrile Results Laboratory Results: 11/12/18 05:50 11/12/18 05:50 11/12/18 11/12/18 05:50 05:50 WBC 7.8 RBC 3.31 L Hgb 9.6 L Hct 27.3 L MCV 83 MCH 29.1 MCHC 35.2 RDW 14.7 H Plt Count 337 Seg Neutrophils % 73.6 Lymphocytes % 14.8 Monocytes % 8.0 Eosinophils % 3.2 Basophils % 0.4 Absolute Neutrophils 5.8 Absolute Lymphocytes 1.2 Absolute Monocytes 0.6 Absolute Eosinophils 0.3 Absolute Basophils 0.0 Creatinine 0.58 Est GFR ( Amer) > 60 Est GFR (Non-Af Amer) > 60 11/05/18 19:07 CK-MB (CK-2) 0.58 Impressions: Foot X-Ray 11/05/18 18:39 IMPRESSION: Subcutaneous gas in the soft tissues of the right foot in the midfoot and forefoot. This is suspicious for necrotic infection. Correlate clinically. Head CT 11/05/18 18:44 IMPRESSION: Stable left parietal infarction. No acute intracranial imaging findings. EVIDENCE OF ACUTE STROKE: NO. Ribs w/Chest X-Ray 11/05/18 18:44 IMPRESSION: No evidence for left rib fracture. Chest X-Ray 11/09/18 00:00 IMPRESSION: Right neck vascular catheter, tip projecting over the right atrium. No acute abnormality of the lungs. Assessment & Plan - Time Time Spent with patient: 15-24 minutes - Plan Summary Plan Summary: Agree to stop antibiotics. Continue PT Will sign off . Please arrange follow up with surgical clinic in3 weeks for removal of yodit.
[2018-11-13] MEDS: HEPARIN SOD (PORCINE) 5,000 UNIT/ML 1 ML SYRINGE SUBCUT SCH ×2 (06:24→14:39)
[2018-11-13] MEDS: GABAPENTIN 300 MG CAPSULE PO SCH ×3 (06:24→22:20)
[2018-11-13] MEDS: KETOROLAC TROMETHAMINE INJ/PF 30 MG/1 ML SDV IV SCH ×3 (06:24→18:40)
[2018-11-13] MEDS: FERROUS SULFATE 325 MG TABLET PO SCH ×2 (08:57→18:38)
[2018-11-13] MEDS: INSULIN LISPRO 100 UNIT/ML 3 ML VIAL SUBCUT SCH ×4 (08:57→22:15)
[2018-11-13] MEDS: DOCUSATE SODIUM 100 MG CAPSULE PO SCH ×2 (10:35→18:39)
[2018-11-13] MEDS: CARVEDILOL 12.5 MG TABLET PO SCH ×2 (10:36→22:18)
[2018-11-13] MEDS: SITAGLIPTIN PHOSPHATE 50 MG TABLET PO SCH (10:36)
[2018-11-13] MEDS: MULTIVITAMIN TABLET PO SCH (10:36)
[2018-11-13] MEDS: CLOPIDOGREL BISULFATE 75 MG TABLET PO SCH (10:36)
[2018-11-13] MEDS: FUROSEMIDE 20 MG TABLET PO SCH (10:36)
[2018-11-13] MEDS: LISINOPRIL 5 MG TABLET PO SCH (10:36)
[2018-11-13] MEDS: POLYETHYLENE GLYCOL 3350 POWDER 17 GM/1 PACKET PO SCH (10:36)
[2018-11-13] MEDS: BUPROPION HCL 75 MG TABLET PO SCH ×2 (10:36→18:39)
[2018-11-13] MEDS: MULTIVITAMINS W-IRON TABLET, CHEWABLE PO SCH (10:37)
[2018-11-13] MEDS: INSULIN GLARGINE,HUM.REC.ANLOG 300 UNIT/3 ML INSULN.PEN SUBCUT SCH ×2 (10:37→22:15)
[2018-11-13] MEDS: FLUTICASONE/VILANTEROL 100-25 MCG/DOSE IH SCH (10:37)
[2018-11-13] MEDS ORDERED: FAMOTIDINE 20 MG TABLET PO ONE (15:00)
[2018-11-13] MEDS: METFORMIN HCL 500 MG TABLET PO SCH (18:39)
[2018-11-13] MEDS: FAMOTIDINE 20 MG TABLET PO SCH (22:18)
[2018-11-13] MEDS: MONTELUKAST SODIUM 10 MG TABLET PO SCH (22:18)
[2018-11-13] MEDS: MELATONIN 5 MG TABLET PO SCH (22:18)
[2018-11-14] MEDS: KETOROLAC TROMETHAMINE INJ/PF 30 MG/1 ML SDV IV SCH ×4 (05:03→17:22)
[2018-11-14] MEDS: GABAPENTIN 300 MG CAPSULE PO SCH ×2 (05:31→17:24)
--- NOTE | 2018-11-14 08:35 | PDOC PROGRESS REPORT ---
Subjective Progress Note for:: 11/13/18 Subjective:: 28 at the edge of the bed with his therapy today. Not yet able to stand pivot and transfer to the commode. Complaining of dyspepsia. Still with elevated blood glucose Reason For Visit: DKA, DM FOOT, UTI Physical Exam Vital Signs: Temp Pulse Resp BP Pulse Ox 98.4 F 88 16 140/60 H 97 11/13/18 07:25 11/13/18 07:25 11/13/18 07:25 11/13/18 07:25 11/13/18 07:25 Intake & Output 11/12/18 11/13/18 11/14/18 06:59 06:59 06:59 Intake Total 1930 675 Output Total 600 1050 Balance 1330 -375 Weight 63.2 kg 63.7 kg General appearance: PRESENT: no acute distress, cooperative, well-developed Head exam: PRESENT: atraumatic, normocephalic Eye exam: PRESENT: conjunctiva pink. ABSENT: scleral icterus Ear exam: PRESENT: normal external ear exam Teeth exam: PRESENT: poor dentation Neck exam: ABSENT: carotid bruit, JVD, lymphadenopathy Respiratory exam: PRESENT: clear to auscultation roderick, symmetrical, unlabored. ABSENT: rales, rhonchi, wheezes Cardiovascular exam: PRESENT: RRR, +S1, +S2 GI/Abdominal exam: PRESENT: normal bowel sounds, soft. ABSENT: distended, tenderness Rectal exam: PRESENT: deferred Gentrourinary exam: ABSENT: indwelling catheter Extremities exam: PRESENT: other - New right below-knee amputation. ABSENT: pedal edema Neurological exam: PRESENT: alert, awake, oriented to person, oriented to place, oriented to situation Psychiatric exam: PRESENT: flat affect. ABSENT: agitated, anxious Focused psych exam: ABSENT: delusional, restlessness Results Laboratory Results: 11/12/18 05:50 11/12/18 05:50 11/08/18 12:18 Blood Blood Culture - Final NO GROWTH IN 5 DAYS 11/05/18 19:07 CK-MB (CK-2) 0.58 Impressions: Foot X-Ray 11/05/18 18:39 IMPRESSION: Subcutaneous gas in the soft tissues of the right foot in the midfoot and forefoot. This is suspicious for necrotic infection. Correlate clinically. Head CT 11/05/18 18:44 IMPRESSION: Stable left parietal infarction. No acute intracranial imaging findings. EVIDENCE OF ACUTE STROKE: NO. Ribs w/Chest X-Ray 11/05/18 18:44 IMPRESSION: No evidence for left rib fracture. Chest X-Ray 11/09/18 00:00 IMPRESSION: Right neck vascular catheter, tip projecting over the right atrium. No acute abnormality of the lungs. Assessment and Plan - Diagnosis (1) Right foot cellulitis and dry gangrene Is this a current diagnosis for this admission?: Yes Plan: 11/12/18 19:29 The patient had successful right below-knee amputation. As the infected tissue is been removed I have discontinued antibiotic therapy. The patient is scared with regard to physical therapy. I strongly encouraged her to get out of bed and try her best. Simple things like stand pivot transfer to the commode will make using a bedpan unnecessary. She only sat at the edge of the bed yesterday. November 13, 2018 The patient received IV antibiotics until several days after the amputation. Condition resolved by amputation. (2) Hypokalemia Is this a current diagnosis for this admission?: Yes Plan: Upon initial admission her potassium was high. Subsequently it dropped but was supplemented and now has remained normal. (3) Hyponatremia Is this a current diagnosis for this admission?: Yes Plan: Still very minimally low at 135.7. Would continue to monitor. (4) Uncontrolled diabetes mellitus Qualifiers: Diabetes mellitus type: type 2 Is this a current diagnosis for this admission?: Yes Plan: 11/12/18 19:31 Her Accu-Cheks are still high. I increased her Lantus again. Monitor sliding scale coverage and adjust Lantus accordingly. She is also on sitagliptin. November 13, 2018 Her Lantus has been increased from her home dose. She is on sitagliptin and we will resume low-dose metformin. She is also on a sliding scale. Continue Accu- Cheks and adjust Lantus or other medications based on Accu-Cheks and sliding scale requirement. (5) Hypertension Qualifiers: Hypertension type: essential hypertension Qualified Code(s): I10 - Essential (primary) hypertension Is this a current diagnosis for this admission?: Yes Plan: Blood pressure still varies and tends to be just above the desired goal. I believe discomfort adversely affects her pressure as well. Consider increasing lisinopril if blood pressure continues to be abnormal. (6) Hyperlipidemia Qualifiers: Hyperlipidemia type: unspecified Qualified Code(s): E78.5 - Hyperlipidemia, unspecified Is this a current diagnosis for this admission?: Yes Plan: Upon further review the patient is not on statin therapy. This is surprising considering her underlying diabetes and medical history. Consider starting statin therapy or defer to primary care physician. (7) Metabolic acidosis and hyperglycemia Is this a current diagnosis for this admission?: Yes Plan: Resolved (8) UTI (urinary tract infection) Qualifiers: Urinary tract infection type: acute cystitis Is this a current diagnosis for this admission?: Yes Plan: Resolved. Her Lopez catheter has been removed. - Time Time Spent with patient: 15-24 minutes Medications reviewed and adjusted accordingly: Yes Anticipated discharge: SNF Within: within 24 hours
--- NOTE | 2018-11-14 09:01 | PDOC TRANSFER SUMMARY ---
General - Admit/Disc Date/PCP Admission Date/Primary Care Provider: 11/05/18 21:26 KATT RAMSEY PA-C Discharge Date: 11/14/18 - Discharge Diagnosis (1) Right foot cellulitis and dry gangrene Is this a current diagnosis for this admission?: Yes Summary: The patient had been getting treated for the foot ulcer. Unfortunately she developed dry gangrene. Because of failed attempts at healing it was decided that a right below-knee amputation would be the best way to treat her condition. Her surgery was successful. Her incision is healing nicely. She will need physical and occupational therapy as well as evaluation by a budget examiner to adjust to the new status. Follow-up with orthopedic surgery in 2 weeks. (2) Hyponatremia Is this a current diagnosis for this admission?: Yes Summary: The patient's sodium has varied. He has been improving steadily. Her last sodium was just under the lower limit of normal. Continue to monitor and adjust treatment plan if required. (3) Uncontrolled diabetes mellitus Is this a current diagnosis for this admission?: Yes Summary: The patient's Accu-Cheks were markedly elevated. Some of this was likely due to the physiologic stress of her surgery and cystitis. She is on an increased dose of Lantus as opposed to her previous home dose. She continues on sliding scale. She is also on sitagliptin and we have resumed her low-dose metformin. The Lantus will likely need to be adjusted. Continue to monitor Accu-Cheks and adjust medications as indicated. (4) Hypertension Is this a current diagnosis for this admission?: Yes Summary: Her blood pressure tends to be at or above goal. The lability is likely due to pain. She is back on lisinopril 5 mg daily and furosemide 20 mg daily. Based on her blood pressure readings adjust medications accordingly. (5) Hyperlipidemia Is this a current diagnosis for this admission?: Yes Summary: Surprisingly the patient is not on a statin therapy. I have deferred this to outpatient management. With her history of vascular disease and diabetes, unless there is a contraindication that I am not aware of, adding statin therapy would appear to be beneficial. Again I defer this to her primary care provider. (6) Metabolic acidosis and hyperglycemia Is this a current diagnosis for this admission?: Yes Summary: Condition resolved. (7) UTI (urinary tract infection) Is this a current diagnosis for this admission?: Yes Summary: Urine analysis showed marked white blood cells. Unfortunately a urine culture was not obtained. The patient did receive a course of antibiotics primarily for her foot but it was broad-spectrum and so it covered her urine. The Lopez catheter is out. (8) Hyperkalemia Is this a current diagnosis for this admission?: Yes Summary: The patient's serum potassium was initially elevated. She was given IV fluids and this quickly corrected. Her potassium has been normal since. Monitor potassium level and supplement if needed. - Additional Information Resuscitation Status: Full Code Discharge Diet: Diabetic Discharge Activity: Activity As Tolerated - As directed by physical therapy Prescriptions: Hydrocodone/Acetaminophen [[place] 5-325 mg Tablet] 0.5 tab PO Q8HP PRN 7 Days #5 tablet PRN Reason: For Pain Scale 4-5 Home Medications: Albuterol Sulfate [Proair HFA Inhalation Aerosol 8.5 gm MDI] 2 puff IH Q6HP PRN 11/06/18 Bupropion HCl [Bupropion Xl] 150 mg PO QAM 11/06/18 Carvedilol [Coreg 12.5 mg Tablet] 12.5 mg PO Q12 11/06/18 Celecoxib [Celebrex 100 mg Capsule] 100 mg PO BID 11/06/18 Clopidogrel Bisulfate [Plavix 75 mg Tablet] 75 mg PO DAILY 11/06/18 Ergocalciferol (Vitamin D2) [Drisdol 50,000 unit (1.25MG) Capsule] 50,000 unit PO RICHARD@1000 11/06/18 Furosemide [Lasix 20 mg Tablet] 20 mg PO DAILY 11/06/18 Gabapentin [Neurontin 300 mg Capsule] 300 mg PO Q8 11/06/18 Lisinopril [Prinivil 5 mg Tablet] 5 mg PO DAILY 11/06/18 Mometasone/Formoterol [Dulera 100 Mcg/5 Mcg Inhaler] 2 puff IH BID 11/06/18 Montelukast Sodium [Singulair 10 mg Tablet] 10 mg PO QHS 11/06/18 Sitagliptin Phosphate [Januvia] 100 mg PO DAILY 11/06/18 Acetaminophen [Tylenol 325 mg Tablet] 650 mg PO Q4HP PRN tablet 11/14/18 Docusate Sodium [Colace 100 mg Capsule] 100 mg PO BID capsule 11/14/18 Enoxaparin Sodium [Lovenox Inj 40 mg/0.4 ml Disp.syrin] 40 mg SUBCUT DAILY disp.syrin 11/14/18 Famotidine [Pepcid 20 mg Tablet] 20 mg PO Q12 tablet 11/14/18 Ferrous Sulfate [Feosol 325 mg Tablet] 325 mg PO BIDPCBS tablet 11/14/18 Hydrocodone/Acetaminophen [[place] 5-325 mg Tablet] 0.5 tab PO Q8HP PRN 7 Days #5 tablet 11/14/18 Insulin Glargine,Hum.rec.anlog [Lantus Insulin 100 Unit/mL] 24 unit SUBCUT Q12 insuln.pen 11/14/18 Insulin Lispro [Humalog Insulin (Lispro) 100 unit/mL] 0 - 12 unit SUBCUT ACHS unit 11/14/18 Melatonin [Melatonin 5 mg Tablet] 10 mg PO QHS tablet 11/14/18 Metformin HCl [Glucophage 500 mg Tablet] 500 mg PO BIDACBS tablet 11/14/18 Multivitamin [Tab-A-Shubham (Multiple Vitamin) Tablet] 1 tab PO DAILY tablet 11/14/18 Multivitamins W-Iron [Flintstones Chewable Multivit W/Fe Tab] 2 tab PO DAILY tab.chew 11/14/18 Polyethylene Glycol 3350 [Miralax Powder 17 gm/Packet] 17 gm PO DAILY powd.pack 11/14/18 History of Present Illness Admission Date/PCP: 11/05/18 21:26 KATT RAMSEY PA-C Patient complains of: Patient presented to the emergency room with increased weakness and lethargy. She has underlying diabetes and has had a wound on the right foot. Upon evaluation she was found to have dry gangrene. She was referred to the hospitalist service for admission with surgical consult. History of Present Illness: DUSTIN MALDONADO is a 58 year old female Hospital Course Hospital Course: With the nonhealing ulcer and development of gangrene the patient was taken to the OR and underwent a right below-knee amputation. During the course of her stay she was treated for hyperglycemia with electrolyte abnormalities as noted above. The cystitis was adequately covered by antibiotics initiated for the ulceration on her foot Please see above for greater detail. Her surgery went well. She is sensitive to narcotic pain medications. She has a history of depression and there is been a window of noncompliance and so her mood has been low. She was extremely anxious and afraid when he came to initially working with physical therapy. She has been restarted on her home medications. She is engaging more with therapy and was able to bear weight on the right leg. They have not progressed to pivot and transfer such as to the commode. She will need ongoing physical and occupational therapy as well as evaluation by a budget examiner. She will be transferring to [facility] for ongoing Physical Exam Vital Signs: Temp Pulse Resp BP Pulse Ox 98.3 F 85 16 148/65 H 97 11/13/18 23:27 11/13/18 23:27 11/13/18 23:27 11/13/18 23:27 11/13/18 23:27 Intake & Output 11/13/18 11/14/18 11/15/18 06:59 06:59 06:59 Intake Total 675 537 50 Output Total 1050 Balance -375 537 50 Weight 63.7 kg 63.3 kg General appearance: PRESENT: no acute distress, cooperative, well-developed Head exam: PRESENT: atraumatic, normocephalic Eye exam: PRESENT: conjunctiva pink. ABSENT: scleral icterus Ear exam: PRESENT: normal external ear exam Neck exam: ABSENT: carotid bruit, JVD, lymphadenopathy Respiratory exam: PRESENT: clear to auscultation roderick, symmetrical, unlabored. ABSENT: accessory muscle use, rales, rhonchi, wheezes Cardiovascular exam: PRESENT: RRR, +S1, +S2 GI/Abdominal exam: PRESENT: normal bowel sounds, soft. ABSENT: distended, tenderness Rectal exam: PRESENT: deferred Gentrourinary exam: ABSENT: indwelling catheter Extremities exam: PRESENT: other - New right below-knee amputation. ABSENT: pedal edema Musculoskeletal exam: ABSENT: ambulatory Neurological exam: PRESENT: alert, awake, oriented to person, oriented to place, oriented to situation Psychiatric exam: PRESENT: depressed, flat affect Results Laboratory Results: 11/12/18 05:50 11/12/18 05:50 11/08/18 14:23 Blood Blood Culture - Final NO GROWTH IN 5 DAYS 11/08/18 12:18 Blood Blood Culture - Final NO GROWTH IN 5 DAYS 11/05/18 19:07 CK-MB (CK-2) 0.58 Impressions: Foot X-Ray 11/05/18 18:39 IMPRESSION: Subcutaneous gas in the soft tissues of the right foot in the midfoot and forefoot. This is suspicious for necrotic infection. Correlate clinically. Head CT 11/05/18 18:44 IMPRESSION: Stable left parietal infarction. No acute intracranial imaging findings. EVIDENCE OF ACUTE STROKE: NO. Ribs w/Chest X-Ray 11/05/18 18:44 IMPRESSION: No evidence for left rib fracture. Chest X-Ray 11/09/18 00:00 IMPRESSION: Right neck vascular catheter, tip projecting over the right atrium. No acute abnormality of the lungs. Transfer Plan - Disposition Transfer Plan: Will transfer to senior care facility. Follow-up with orthopedic surgery in 1-2 weeks. - Time Spent with Patient Time spent with patient: Greater than 30 Minutes Qualifiers - * PATIENT BEING DISCHARGED WITH ANY OF THE FOLLOWING DIAGNOSIS: No Plan Discharge Plan: As above Time Spent: Greater than 30 Minutes
[2018-11-14] MEDS: INSULIN LISPRO 100 UNIT/ML 3 ML VIAL SUBCUT SCH ×3 (09:02→17:20)
[2018-11-14] MEDS: FERROUS SULFATE 325 MG TABLET PO SCH ×2 (09:12→17:24)
[2018-11-14] MEDS: METFORMIN HCL 500 MG TABLET PO SCH ×2 (09:12→17:24)
[2018-11-14] MEDS: DOCUSATE SODIUM 100 MG CAPSULE PO SCH ×2 (09:13→17:24)
[2018-11-14] MEDS: MULTIVITAMIN TABLET PO SCH (09:13)
[2018-11-14] MEDS: CARVEDILOL 12.5 MG TABLET PO SCH (09:13)
[2018-11-14] MEDS: FLUTICASONE/VILANTEROL 100-25 MCG/DOSE IH SCH (09:14)
[2018-11-14] MEDS: MULTIVITAMINS W-IRON TABLET, CHEWABLE PO SCH (09:15)
[2018-11-14] MEDS: SITAGLIPTIN PHOSPHATE 50 MG TABLET PO SCH (09:15)
[2018-11-14] MEDS: FAMOTIDINE 20 MG TABLET PO SCH (09:18)
[2018-11-14] MEDS: BUPROPION HCL 75 MG TABLET PO SCH ×2 (09:18→17:24)
[2018-11-14] MEDS: POLYETHYLENE GLYCOL 3350 POWDER 17 GM/1 PACKET PO SCH (09:18)
[2018-11-14] MEDS: CLOPIDOGREL BISULFATE 75 MG TABLET PO SCH (09:18)
[2018-11-14] MEDS: FUROSEMIDE 20 MG TABLET PO SCH (09:18)
[2018-11-14] MEDS: LISINOPRIL 5 MG TABLET PO SCH (09:18)
[2018-11-14] MEDS ORDERED: ENOXAPARIN SODIUM INJ 40 MG/0.4 ML DISP.SYRIN SUBCUT SCH (10:00)
[2018-11-14] MEDS: INSULIN GLARGINE,HUM.REC.ANLOG 300 UNIT/3 ML INSULN.PEN SUBCUT SCH (12:33)
[2018-11-14 12:56] VITALS: BP 135/75
[2018-11-14] MEDS: ACETAMINOPHEN 325 MG TABLET PO PRN (19:44)
[2018-11-14] MEDS ORDERED: INSULIN GLARGINE,HUM.REC.ANLOG 1,000 UNIT/10 ML VIAL SUBCUT SCH (22:00)
== END 2018-11-14 19:50 | DRG 853 ==
LOC: ER 16:34 → EH 21:26 → ICU 11-06 01:25 → 5 11-07 15:37
PROVIDERS: ADMIT Internal Medicine; ATTEND Internal Medicine
PROC: 0Y6T0Z0 Detachment at Right 3rd Toe, Complete, Open Approach (ICD-10-PCS; 2018-11-06)
PROC: 0Y6X0Z0 Detachment at Right 5th Toe, Complete, Open Approach (ICD-10-PCS; 2018-11-06)
PROC: 0Y6V0Z0 Detachment at Right 4th Toe, Complete, Open Approach (ICD-10-PCS; 2018-11-06)
PROC: 02HV33Z Insertion of Infusion Device into Superior Vena Cava, Percutaneous Approach (ICD-10-PCS; 2018-11-09)
PROC: 0Y6H0Z3 Detachment at Right Lower Leg, Low, Open Approach (ICD-10-PCS; principal; 2018-11-09 12:00)
PROC: 30233N1 Transfusion of Nonautologous Red Blood Cells into Peripheral Vein, Percutaneous Approach (ICD-10-PCS; 2018-11-10)
DX: A41.9 Sepsis, unspecified organism (principal); E10.10 Type 1 diabetes mellitus with ketoacidosis without coma; E10.52 Type 1 diabetes mellitus with diabetic peripheral angiopathy with gangrene; I96 Gangrene, not elsewhere classified; E87.1 Hypo-osmolality and hyponatremia; N17.9 Acute kidney failure, unspecified; M86.171 Other acute osteomyelitis, right ankle and foot; E10.621 Type 1 diabetes mellitus with foot ulcer; I11.0 Hypertensive heart disease with heart failure; I50.9 Heart failure, unspecified; E10.628 Type 1 diabetes mellitus with other skin complications; E10.69 Type 1 diabetes mellitus with other specified complication; E87.5 Hyperkalemia; N30.90 Cystitis, unspecified without hematuria; L97.519 Non-pressure chronic ulcer of other part of right foot with unspecified severity; D50.9 Iron deficiency anemia, unspecified; L03.031 Cellulitis of right toe; E78.5 Hyperlipidemia, unspecified; J44.9 Chronic obstructive pulmonary disease, unspecified; M19.90 Unspecified osteoarthritis, unspecified site; F41.1 Generalized anxiety disorder; F32.9 Major depressive disorder, single episode, unspecified; Z79.4 Long term (current) use of insulin; Z86.73 Personal history of transient ischemic attack (TIA), and cerebral infarction without residual deficits; Z87.891 Personal history of nicotine dependence; Z83.3 Family history of diabetes mellitus; Z82.49 Family history of ischemic heart disease and other diseases of the circulatory system; Z83.438 Family history of other disorder of lipoprotein metabolism and other lipidemia; Z91.19 Patient's noncompliance with other medical treatment and regimen
CPT/HCPCS: 01480; 01482; 36415; 36430; 70450; 71045; 80048; 80053; 80202; 81001; 82553; 82565; 82607; 82728; 82746; 82803; 82962; 83036; 83540; 83550; 83605; 85025; 85045; 85610; 85730; 86850; 86900; 86901; 86920; 87040; 87077; 87186; 88305; 88307; 88311; 93005; 93010; 93926; 94640; 96365; 99291; 99292; C1751; J0692; J1100; J1170; J1644; J1815; J1885; J2001; J2250; J2270; J2310; J2370; J2405; J2704; J2765; J3010; J3370; J3490; J7030; J7060; J7620; P9016

== ENCOUNTER → 2018-12-11 | Outpatient (CLI) | payer MEDICARE ==
--- NOTE | 2018-12-15 13:13 | XCELERA REPORT ---
[address] [id number] Lower Extremity Arterial Evaluation Name: DUSTIN MALDONADO Age: 58 yrs Gender: Female : 1960 Patient Status: Outpatient Patient Location: [facility] Study Date: 12/11/2018 01:30 PM Procedure: A color flow and duplex scan of the lower extremity arteries was performed on the left with velocity and waveform anaylsis. 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 Biphasic with diminished velocity, spectral broadening in the Popliteal. Monophasic with spectral broadening, severely dimnished velocity in the infrageniculate vessels . Monophasic in the Dorsalis Pedis. Ankle Brachial index not obtained. Interpretation Summary No focal lesion identified, pattern is suggestive of Femoral, and sequential disease. Severe hemodynamically significant lesions in the left lower extremity only, on duplex imaging, at rest. : DAVONTE CARDENAS > Davonte Cardenas
== END ==
LOC: SP 13:13
PROVIDERS: ATTEND Surgery
DX: R09.89 Other specified symptoms and signs involving the circulatory and respiratory systems (principal)
CPT/HCPCS: 93926

== ENCOUNTER 2018-12-22 15:59 | Inpatient (IN) | payer MEDICARE, OTHER ==
--- NOTE | 2018-12-22 16:12 | ER Document Report ---
ED Medical Screen (RME) - General Chief Complaint: Other Stated Complaint: LEG DISCOLORATION/POST AMPUTATION Time Seen by Provider: 12/22/18 16:09 Primary Care Provider: DAVONTE DELATORRE MD [Primary Care Provider] - Follow up as needed Mode of Arrival: Wheelchair Information source: Patient, Relative Notes: 58-year-old female presents the ED for infected right stump. She states that she had her right leg amputated in October. He states he went to all the follow- up appointments as scheduled. States that when she went to the surgeon he told her that the skin on the stump was and that she would need to go back to surgery. Family states that he tried to get her to come to the emergency room at that time to get admitted for revision of the stump and she was scared it would not come into the emergency room. States that the wound is gotten more black and more foul-smelling and she has agreed to come in today so they have come to the emergency room. I have ordered blood and x-rays she will get seen by another provider. I have greeted and performed a rapid initial assessment of this patient. A comprehensive ED assessment and evaluation of the patient, analysis of test results and completion of medical decision making process will be conducted by an additional ED providers. TRAVEL OUTSIDE OF THE [place] IN LAST 30 DAYS: No - Related Data Allergies/Adverse Reactions: No Known Allergies Allergy (Verified 11/05/18 18:18) Past Medical History - Past Medical History Cardiac Medical History: Reports: Hx Congestive Heart Failure, Hx Hypercholesterolemia, Hx Hypertension Pulmonary Medical History: Reports: Hx Asthma Neurological Medical History: Reports: Hx Cerebrovascular Accident Endocrine Medical History: Reports: Hx Diabetes Mellitus Type 1, Hx Diabetes Mellitus Type 2 Renal/ Medical History: Denies: Hx Peritoneal Dialysis Musculoskeltal Medical History: Reports Hx Arthritis Psychiatric Medical History: Reports: Hx Depression Past Surgical History: Reports: Hx Section, Hx Vascular Surgery - Angio - Immunizations Immunizations up to date: Yes Hx Diphtheria, Pertussis, Tetanus Vaccination: Yes History of Influenza Vaccine for 05/2017 - 10/2017 Season: Yes Physical Exam - Vital signs Vitals: Temp Pulse Resp BP Pulse Ox 98.1 F 106 H 18 148/81 H 97 12/22/18 16:04 12/22/18 16:04 12/22/18 16:04 12/22/18 16:04 12/22/18 16:04 Course - Vital Signs Vital signs: Temp Pulse Resp BP Pulse Ox 98.1 F 106 H 18 148/81 H 97 12/22/18 16:04 12/22/18 16:04 12/22/18 16:04 12/22/18 16:04 12/22/18 16:04 Doctor's Discharge - Discharge Referrals: DAVONTE DELATORRE MD [Primary Care Provider] - Follow up as needed
[2018-12-22 17:00] LABS: ABSOLUTE BASOPHILS # (AUTO) 0.1 10^3/uL (0.0-0.2); ABSOLUTE EOSINOPHILS # (AUTO) 0.3 10^3/uL (0.0-0.6); ABSOLUTE LYMPHOCYTES (AUTO) 2.1 10^3/uL (0.5-4.7); ABSOLUTE MONOCYTES (AUTO) 0.5 10^3/uL (0.1-1.4); ABSOLUTE NEUT (AUTO) 11.1 10^3/uL (1.7-8.2); BASOPHILS % (AUTO) 0.6 % (0-2); EOSINOPHILS % (AUTO) 2.1 % (0-6); HEMATOCRIT 31.8 % (36.0-47.0); HEMOGLOBIN 10.4 g/dL (12.0-15.5); LYMPHOCYTES % (AUTO) 15.2 % (13-45); MEAN CORPUSCULAR HEMOGLOBIN 27.3 pg (27.0-33.4); MEAN CORPUSCULAR HGB CONC 32.8 g/dL (32.0-36.0); MEAN CORPUSCULAR VOLUME 83 fl (80-97); MONOCYTES % (AUTO) 3.6 % (3-13); PLATELET COUNT 743 10^3/uL (150-450); RED BLOOD COUNT 3.81 10^6/uL (3.72-5.28); RED CELL DISTRIBUTION WIDTH 15.6 % (11.5-14.0); SEGMENTED NEUTROPHILS % (AUTO) 78.5 % (42-78); TOTAL CELLS COUNTED % (AUTO) 100 %; WHITE BLOOD COUNT 14.2 10^3/uL (4.0-10.5)
[2018-12-22 17:13] LABS: ALANINE AMINOTRANSFERASE 7 U/L (9-52); ALKALINE PHOSPHATASE 131 U/L (38-126); ANION GAP 17 (5-19); ASPARTATE AMINO TRANSFERASE 11 U/L (14-36); BILIRUBIN,DIRECT 0.3 mg/dL (0.0-0.4); BILIRUBIN,TOTAL 0.6 mg/dL (0.2-1.3); BLOOD UREA NITROGEN 21 mg/dL (7-20); CALCIUM 10.5 mg/dL (8.4-10.2); CARBON DIOXIDE 22 mmol/L (22-30); CHLORIDE 101 mmol/L (98-107); GLUCOSE 168 mg/dL (75-110); SODIUM 139.6 mmol/L (137-145); TOTAL PROTEIN 9.1 g/dL (6.3-8.2)
[2018-12-22] MEDS ORDERED: PIPERACILLIN/TAZOBACTAM 3.375 GM VIAL IV ONE (18:13)
--- NOTE | 2018-12-22 18:13 | RADIOLOGY REPORT (SQ) ---
EXAM DESCRIPTION: TIBIA FIBULA RIGHT COMPLETED DATE/TIME: 12/22/2018 5:54 pm REASON FOR STUDY: infected right stump COMPARISON: None. NUMBER OF VIEWS: Two views. TECHNIQUE: Two radiographic images acquired of the right tibia and fibula to include the knee and an kle in at least one projection. LIMITATIONS: None. FINDINGS: MINERALIZATION: Normal. BONES: Status post right below-knee amputation, which is recent given appearance of bony margins. SOFT TISSUES: Soft tissue swelling of the stump. OTHER: Vascular calcinosis. IMPRESSION: Recent appearing right below-knee amputation without obvious evidence of bony erosion or sclerosis to suggest osteomyelitis. Soft tissue swelling of the stump. TECHNICAL DOCUMENTATION: JOB ID: [id number] [employer]- All Rights Reserved Reading location - IP/workstation name: [email or web address]
--- NOTE | 2018-12-22 18:14 | RADIOLOGY REPORT (SQ) ---
EXAM DESCRIPTION: CHEST 2 VIEWS COMPLETED DATE/TIME: 12/22/2018 5:54 pm REASON FOR STUDY: infected right stump COMPARISON: 11/09/2018 TECHNIQUE: Frontal and lateral radiographic views of the chest acquired. NUMBER OF VIEWS: Two view. LIMITATIONS: None. FINDINGS: LUNGS AND PLEURA: No pneumothorax. No consolidation or pleural effusion. MEDIASTINUM AND HILAR STRUCTURES: Stable. HEART AND VASCULAR STRUCTURES: Stable. BONES: No acute findings. HARDWARE: None in the chest. OTHER: No other significant finding. IMPRESSION: NO ACUTE FINDINGS. TECHNICAL DOCUMENTATION: JOB ID: [id number] [employer]- All Rights Reserved Reading location - IP/workstation name: [email or web address]
[2018-12-22] MEDS ORDERED: NORMAL SALINE 500 ML IV ONE (18:22)
[2018-12-22] MEDS ORDERED: NORMAL SALINE 1000 ML 1,000 ML IV ONE (18:25)
[2018-12-22] MEDS ORDERED: FENTANYL CITRATE INJ/PF 100 MCG/2 ML AMPUL IV ONE (18:35)
[2018-12-22] MEDS ORDERED: ONDANSETRON HCL INJ/PF 4 MG/2 ML SDV IV ONE (18:35)
[2018-12-22] MEDS ORDERED: ACETAMINOPHEN 325 MG TABLET PO PRN (18:55)
[2018-12-22] MEDS ORDERED: GLUCAGON,HUMAN RECOMB 1 MG INJ IM PRN (18:57)
[2018-12-22] MEDS ORDERED: DEXTROSE 50%-WATER 25 GM/50 ML DISP.SYRIN IV PRN ×2 (18:57)
[2018-12-22] MEDS ORDERED: LACTULOSE SYRUP 20 GM/30 ML UDCUP PO ONE (18:57)
[2018-12-22] MEDS ORDERED: DEXTROSE 40% GEL 15 GM TUBE PO PRN ×2 (18:57)
[2018-12-22] MEDS ORDERED: IPRATROPIUM/ALBUTEROL 0.5-2.5 MG/3 ML AMPUL NEB PRN (18:58)
[2018-12-22] MEDS ORDERED: CALCIUM GLUCONATE 2,222 MG in DEXTROSE 5%-WATER 100 ML IV ONE (18:59)
[2018-12-22] MEDS ORDERED: IPRATROPIUM/ALBUTEROL 0.5-2.5 MG/3 ML AMPUL NEB ONE ×2 (18:59→19:24)
[2018-12-22] MEDS ORDERED: MAG HYDROX/AL HYDROX/SIMETH SUSP 30 ML UDCUP PO PRN (19:00)
[2018-12-22] MEDS ORDERED: FUROSEMIDE INJ/PF 40 MG/4 ML SDV IV ONE (19:08)
[2018-12-22] MEDS ORDERED: CALCIUM GLUCONATE 1000 MG/10 ML INJ IV ONE ×2 (19:20→19:24)
[2018-12-22] MEDS ORDERED: LACTULOSE SYRUP 20 GM/30 ML UDCUP ONE (19:25)
[2018-12-22] MEDS ORDERED: FUROSEMIDE INJ/PF 20 MG/2 ML SDV ONE (19:25)
[2018-12-22] MEDS: NORMAL SALINE 1000 ML 1,000 ML IV PRN (19:51)
--- NOTE | 2018-12-22 20:11 | ER Document Report ---
ED General - General Chief Complaint: Other Stated Complaint: LEG DISCOLORATION/POST AMPUTATION Time Seen by Provider: 12/22/18 16:09 Mode of Arrival: Wheelchair TRAVEL OUTSIDE OF THE [place] 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 Patient was seen by vascular surgery Dr. Cardenas on recommended to come to the ER as at the stump was infected patient is showing up today denies fevers chills nausea vomiting states that the tip of the stump is very painful. Patient is otherwise resting comfortably upon my evaluation. - Related Data Allergies/Adverse Reactions: No Known Allergies Allergy (Verified 11/05/18 18:18) Past Medical History - General Information source: Patient, Relative - Social History Smoking Status: Former Smoker Family History: DM, Hyperlipidemia, Hypertension Patient has suicidal ideation: No Patient has homicidal ideation: No - Past Medical History Cardiac Medical History: Reports: Hx Congestive Heart Failure, Hx Hypercholesterolemia, Hx Hypertension Pulmonary Medical History: Reports: Hx Asthma Neurological Medical History: Reports: Hx Cerebrovascular Accident Endocrine Medical History: Reports: Hx Diabetes Mellitus Type 1, Hx Diabetes Mellitus Type 2 Renal/ Medical History: Denies: Hx Peritoneal Dialysis Musculoskeletal Medical History: Reports Hx Arthritis Psychiatric Medical History: Reports: Hx Depression Past Surgical History: Reports: Hx Section, Hx Orthopedic Surgery, Hx Vascular Surgery - Angio - Immunizations Immunizations up to date: Yes Hx Diphtheria, Pertussis, Tetanus Vaccination: Yes Hx Pneumococcal Vaccination: 04/27/15 Review of Systems - Review of Systems Constitutional: No symptoms reported EENT: No symptoms reported Cardiovascular: No symptoms reported Respiratory: No symptoms reported Gastrointestinal: No symptoms reported Genitourinary: No symptoms reported Female Genitourinary: No symptoms reported Musculoskeletal: Other - Infected stump Skin: No symptoms reported Hematologic/Lymphatic: No symptoms reported Neurological/Psychological: No symptoms reported Physical Exam - Vital signs Vitals: Temp Pulse Resp BP Pulse Ox 98.1 F 106 H 18 148/81 H 97 12/22/18 16:04 12/22/18 16:04 12/22/18 16:04 12/22/18 16:04 12/22/18 16:04 Interpretation: Normal - General General appearance: Appears well, Alert - HEENT Head: Normocephalic, Atraumatic Eyes: Normal Pupils: PERRL - Respiratory Respiratory status: No respiratory distress Chest status: Nontender Breath sounds: Normal Chest palpation: Normal - Cardiovascular Rhythm: Regular Heart sounds: Normal auscultation Murmur: No - Abdominal Inspection: Normal Distension: No distension Bowel sounds: Normal Tenderness: Nontender Organomegaly: No organomegaly - Back Back: Normal, Nontender - Extremities General upper extremity: Normal inspection, Nontender, Normal color, Normal ROM, Normal temperature General lower extremity: Nontender, Normal color, Normal ROM. No: Normal inspection - Patient with necrotic skin purulent drainage at the end of the right BKA there is no erythema no streaking - Neurological Neuro grossly intact: Yes Cognition: Normal Orientation: AAOx4 [place] Coma Scale Eye Opening: Spontaneous [place] Coma Scale Verbal: Oriented [place] Coma Scale Motor: Obeys Commands [place] Coma Scale Total: 15 Speech: Normal Motor strength normal: LUE, RUE, LLE, RLE Sensory: Normal - Psychological Associated symptoms: Normal affect, Normal mood - Skin Skin Temperature: Warm Skin Moisture: Dry Skin Color: Normal Course - Re-evaluation Re-evalutation: 12/22/18 20:11 Patient's laboratory studies show hyperkalemia. Patient does have leukocytosis. Examination of bedside shows wet gangrene x-ray shows signs of osteomyelitis there is no gas formation. I discussed with Dr. Seals states that he will more likely operate on the patient early in the morning to have a revision right AKA performed. Requesting hospitalist admission due to the patient's complex medical issues. Discussed case with Martha albrecht who was taken primary care for the hospitalist. Agrees with telemetry admission at this time agrees with the Zosyn will also add on vancomycin. Agree to accept the patient states more likely Dr. Macario will round the patient once he comes on at 7 - Vital Signs Vital signs: Temp Pulse Resp BP Pulse Ox 98.1 F 100 20 142/66 H 99 12/23/18 00:13 12/23/18 00:13 12/23/18 00:13 12/23/18 00:13 12/23/18 00:13 - Laboratory Result Diagrams: 12/22/18 16:34 12/22/18 16:34 Laboratory results interpreted by me: 04/28/19 04/28/19 04/28/19 16:34 16:34 16:34 WBC 14.2 H Hgb 10.4 L Hct 31.8 L RDW 15.6 H Plt Count 743 H Seg Neutrophils % 78.5 H Absolute Neutrophils 11.1 H Potassium 6.0 H* BUN 21 H Glucose 168 H Calcium 10.5 H AST 11 L ALT 7 L Alkaline Phosphatase 131 H Creatine Kinase < 20 L Total Protein 9.1 H Discharge - Discharge Clinical Impression: CHF (congestive heart failure), Infection of right below knee amputation, Osteomyelitis, Hyperkalemia, Hypertension, Diabetes Condition: Good Disposition: ADMITTED INPATIENT Admitting Provider: Renaldo (Hospitalist) - [facility] Admitted: Telemetry
[2018-12-22] MEDS ORDERED: LORAZEPAM INJ 2 MG/1 ML VIAL ONE (20:28)
[2018-12-22] MEDS: MORPHINE SULFATE 10 MG/ML INJ IV PRN (20:31)
[2018-12-22 21:29] LABS: APPEARANCE,URINE CLOUDY; BILIRUBIN,URINE NEGATIVE (NEGATIVE); COLOR,URINE YELLOW; GLUCOSE, URINE 50 mg/dL (NEGATIVE); KETONES,URINE TRACE mg/dL (NEGATIVE); LEUKOCYTE ESTERASE,URINE LARGE (NEGATIVE); NITRITE,URINE POSITIVE (NEGATIVE); PROTEIN,URINE NEGATIVE (NEGATIVE); URINE SPECIFIC GRAVITY 1.009; UROBILINOGEN,URINE NEGATIVE mg/dL (<2.0)
--- NOTE | 2018-12-22 21:35 | EKG REPORT ---
SEVERITY:- ABNORMAL ECG - SINUS TACHYCARDIA PROBABLE POSTERIOR INFARCT : Confirmed by: Kadeem Cali MD 22-Dec-2018 21:35:02
--- NOTE | 2018-12-22 21:35 | EKG REPORT ---
SEVERITY:- OTHERWISE NORMAL ECG - SINUS TACHYCARDIA : Confirmed by: Kadeem Cali MD 22-Dec-2018 21:34:23
[2018-12-22] MEDS ORDERED: VANCOMYCIN HCL 0 MG in DEXTROSE 5%-WATER 250 ML IV NR (21:45)
[2018-12-22] MEDS ORDERED: VANCOMYCIN HCL INJ 1000 MG VIAL ONE (22:01)
[2018-12-22] MEDS ORDERED: VANCOMYCIN HCL 1,000 MG in DEXTROSE 5%-WATER 250 ML IV ONE (22:15)
[2018-12-22] MEDS: GABAPENTIN 300 MG CAPSULE PO SCH (22:17)
[2018-12-22] MEDS: MONTELUKAST SODIUM 10 MG TABLET PO SCH (22:17)
[2018-12-22] MEDS: FAMOTIDINE 20 MG TABLET PO SCH (22:17)
[2018-12-22] MEDS: HEPARIN SOD (PORCINE) 5,000 UNIT/ML 1 ML SYRINGE SUBCUT SCH (22:18)
--- NOTE | 2018-12-22 22:43 | PDOC CONSULTATION ---
Consultation Consult Date: 12/22/18 Consult reason:: dehiscence of right BKA stump History of Present Illness Admission Date/PCP: 12/22/18 19:31 KATT RAMSEY PA-C History of Present Illness: DUSTIN MALDONADO is a 58 year old female who underwent right BKA 11/09/18. The right knee has contracted and the stump incision dehisced partly due to poor healing due to poor circulation. Patient c/o pain Past Medical History Cardiac Medical History: Reports: Congestive Heart Failure, Hyperlipidema, Hypertension Pulmonary Medical History: Reports: Asthma Endocrine Medical History: Reports: Diabetes Mellitus Type 1, Diabetes Mellitus Type 2 Musculoskeltal Medical History: Reports: Arthritis Psychiatric Medical History: Reports: Depression Hematology: Reports: Anemia Past Surgical History Past Surgical History: Reports: Section, Orthopedic Surgery, Vascular Surgery - Angio Social History Smoking Status: Never Smoker Frequency of Alcohol Use: None Hx Recreational Drug Use: Yes Drugs: None Hx Prescription Drug Abuse: No Family History Family History: DM, Hyperlipidemia, Hypertension Parental Family History Reviewed: Yes - father diabetic Children Family History Reviewed: No Sibling(s) Family History Reviewed.: No Medication/Allergy Home Medications: Albuterol Sulfate [Proair HFA Inhalation Aerosol 8.5 gm MDI] 2 puff IH Q6HP PRN 11/06/18 Bupropion HCl [Bupropion Xl] 150 mg PO QAM 11/06/18 Carvedilol [Coreg 12.5 mg Tablet] 12.5 mg PO Q12 11/06/18 Celecoxib [Celebrex 100 mg Capsule] 100 mg PO BID 11/06/18 Clopidogrel Bisulfate [Plavix 75 mg Tablet] 75 mg PO DAILY 11/06/18 Ergocalciferol (Vitamin D2) [Drisdol 50,000 unit (1.25MG) Capsule] 50,000 unit PO RICHARD@1000 11/06/18 Furosemide [Lasix 20 mg Tablet] 20 mg PO DAILY 11/06/18 Gabapentin [Neurontin 300 mg Capsule] 300 mg PO Q8 11/06/18 Lisinopril [Prinivil 5 mg Tablet] 5 mg PO DAILY 11/06/18 Mometasone/Formoterol [Dulera 100 Mcg/5 Mcg Inhaler] 2 puff IH BID 11/06/18 Montelukast Sodium [Singulair 10 mg Tablet] 10 mg PO QHS 11/06/18 Sitagliptin Phosphate [Januvia] 100 mg PO DAILY 11/06/18 Acetaminophen [Tylenol 325 mg Tablet] 650 mg PO Q4HP PRN tablet 11/14/18 Docusate Sodium [Colace 100 mg Capsule] 100 mg PO BID capsule 11/14/18 Enoxaparin Sodium [Lovenox Inj 40 mg/0.4 ml Disp.syrin] 40 mg SUBCUT DAILY disp.syrin 11/14/18 Famotidine [Pepcid 20 mg Tablet] 20 mg PO Q12 tablet 11/14/18 Ferrous Sulfate [Feosol 325 mg Tablet] 325 mg PO BIDPCBS tablet 11/14/18 Hydrocodone/Acetaminophen [[place] 5-325 mg Tablet] 0.5 tab PO Q8HP PRN 7 Days #5 tablet 11/14/18 Insulin Glargine,Hum.rec.anlog [Lantus Insulin 100 Unit/mL] 24 unit SUBCUT Q12 insuln.pen 11/14/18 Insulin Lispro [Humalog Insulin (Lispro) 100 unit/mL] 0 - 12 unit SUBCUT ACHS unit 11/14/18 Melatonin [Melatonin 5 mg Tablet] 10 mg PO QHS tablet 11/14/18 Metformin HCl [Glucophage 500 mg Tablet] 500 mg PO BIDACBS tablet 11/14/18 Multivitamin [Tab-A-Shubham (Multiple Vitamin) Tablet] 1 tab PO DAILY tablet 11/14/18 Multivitamins W-Iron [Flintstones Chewable Multivit W/Fe Tab] 2 tab PO DAILY tab.chew 11/14/18 Polyethylene Glycol 3350 [Miralax Powder 17 gm/Packet] 17 gm PO DAILY powd.pack 11/14/18 Allergies/Adverse Reactions: No Known Allergies Allergy (Verified 11/05/18 18:18) Review of Systems Constitutional: PRESENT: other - no fever/chills Eyes: PRESENT: other - decrease vision Ears: PRESENT: other - no hearing changes Cardiovascular: PRESENT: other - no chest pains/cough Gastrointestinal: PRESENT: other - no pains Genitourinary: PRESENT: other - no dysuria Musculoskeletal: PRESENT: other - Right BKA stump opened and tender Physical Exam Vital Signs: Temp Pulse Resp BP Pulse Ox 98 F 106 H 15 172/74 H 100 12/22/18 19:58 12/22/18 16:04 04/28/19 20:01 12/22/18 20:01 12/22/18 20:01 Intake & Output 12/21/18 12/22/18 12/23/18 06:59 06:59 06:59 Intake Total 500 Balance 500 Weight 60.5 kg General appearance: PRESENT: mild distress Head exam: PRESENT: atraumatic Eye exam: PRESENT: conjunctiva pink Mouth exam: PRESENT: moist Neck exam: PRESENT: full ROM Respiratory exam: PRESENT: clear to auscultation roderick Cardiovascular exam: PRESENT: RRR Pulses: PRESENT: normal radial pulses Vascular exam: PRESENT: normal capillary refill GI/Abdominal exam: PRESENT: soft Rectal exam: PRESENT: deferred Extremities exam: PRESENT: other - Right BKA stump opened and tender Psychiatric exam: PRESENT: appropriate affect Skin exam: PRESENT: normal color, warm Results Laboratory Results: 12/22/18 16:34 12/22/18 16:34 12/22/18 12/22/18 12/22/18 16:34 16:34 20:37 WBC 14.2 H RBC 3.81 Hgb 10.4 L Hct 31.8 L MCV 83 MCH 27.3 MCHC 32.8 RDW 15.6 H Plt Count 743 H Seg Neutrophils % 78.5 H Lymphocytes % 15.2 Monocytes % 3.6 Eosinophils % 2.1 Basophils % 0.6 Absolute Neutrophils 11.1 H Absolute Lymphocytes 2.1 Absolute Monocytes 0.5 Absolute Eosinophils 0.3 Absolute Basophils 0.1 Sodium 139.6 Potassium 6.0 H* Chloride 101 Carbon Dioxide 22 Anion Gap 17 BUN 21 H Creatinine 0.85 Est GFR ( Amer) > 60 Est GFR (Non-Af Amer) > 60 Glucose 168 H Calcium 10.5 H Total Bilirubin 0.6 AST 11 L ALT 7 L Alkaline Phosphatase 131 H Total Protein 9.1 H Albumin 4.0 Urine Color YELLOW Urine Appearance CLOUDY Urine pH 6.0 Ur Specific [place] 1.009 Urine Protein NEGATIVE Urine Glucose (UA) 50 H Urine Ketones TRACE H Urine Blood SMALL H Urine Nitrite POSITIVE H Ur Leukocyte Esterase LARGE H Urine WBC (Auto) >182 Urine RBC (Auto) 32 12/22/18 16:34 Creatine Kinase < 20 L Impressions: Chest X-Ray 12/22/18 16:09 IMPRESSION: NO ACUTE FINDINGS. Tibia/Fibula X-Ray 12/22/18 16:10 IMPRESSION: Recent appearing right below-knee amputation without obvious evidence of bony erosion or sclerosis to suggest osteomyelitis. Soft tissue swelling of the stump. Assessment & Plan - Diagnosis (1) Diabetes Is this a current diagnosis for this admission?: Yes (2) Hyperkalemia Is this a current diagnosis for this admission?: Yes (3) Hypertension Qualifiers: Is this a current diagnosis for this admission?: Yes (4) Infection of right below knee amputation Is this a current diagnosis for this admission?: Yes - Time Time Spent: 30 to 50 Minutes - Inpatient Certification Medical Necessity: Need for Pain Control, Need for IV Antibiotics, Need for Surgery - Plan Summary Plan Summary: Correct K+ NPO after midnight For Right AKA tomorrow by Dr Diego
[2018-12-23] MEDS: PIPERACILLIN SODIUM/TAZOBACTAM 4.5 GM in NORMAL SALINE 100 ML IV SCH ×5 (00:22→23:47)
[2018-12-23] MEDS: MORPHINE SULFATE 10 MG/ML INJ IV PRN ×4 (00:38→23:45)
[2018-12-23] MEDS: CARVEDILOL 12.5 MG TABLET PO SCH ×3 (00:38→23:47)
[2018-12-23] MEDS: MELATONIN 5 MG TABLET PO SCH ×2 (00:38→23:48)
[2018-12-23] MEDS ORDERED: PIPERACILLIN/TAZOBACTAM 4.5 GM VIAL IV ONE ×2 (00:49→05:30)
[2018-12-23] MEDS ORDERED: ONDANSETRON HCL INJ/PF 4 MG/2 ML SDV IV ONE (01:45)
[2018-12-23] MEDS ORDERED: NA PHOS,M-B/NA PHOS,DI-BA (ADULT) 133 ML ENEMA PR ONE (02:00)
[2018-12-23] MEDS: NORMAL SALINE 1000 ML 1,000 ML IV PRN ×3 (02:00→17:48)
[2018-12-23] MEDS ORDERED: INSULIN GLARGINE,HUM.REC.ANLOG 1,000 UNIT/10 ML VIAL (PYX) SUBCUT ONE (02:17)
[2018-12-23] MEDS: INSULIN GLARGINE,HUM.REC.ANLOG 1,000 UNIT/10 ML VIAL SUBCUT SCH ×3 (02:25→23:48)
[2018-12-23] MEDS ORDERED: LORAZEPAM INJ 2 MG/1 ML VIAL ONE (04:00)
[2018-12-23] MEDS ORDERED: LORAZEPAM INJ 2 MG/1 ML VIAL IV ONE (04:15)
--- NOTE | 2018-12-23 04:45 | PDOC H&P ---
History of Present Illness Admission Date/PCP: 12/22/18 19:31 KATT RAMSEY PA-C Patient complains of: Right BKA stump necrosis History of Present Illness: DUSTIN MALDONADO is a 58 year old female with past medical history of diabetes, hypertension, CVA without residual, peripheral neuropathy, dyslipidemia, COPD, iron deficiency anemia, anxiety, recurrent pyelonephritis and BKA November 09, 2018. She presents 48 hours after referral to the emergency room following wound care referral for notable necrosis of BKA stump. In the emergency room she is found to have malodorous feculent discharge about the stump with tachycardia, leukocytosis, hyperkalemia, hyperglycemia and pyuria. She is referred to the hospitalist for admission. Patient is a poor historian overwhelmed by anxiety accompanied by her mother surgery is consulted and anxiolytic provided. Past Medical History Cardiac Medical History: Reports: Congestive Heart Failure, Hyperlipidema, Hypertension Pulmonary Medical History: Reports: Asthma Endocrine Medical History: Reports: Diabetes Mellitus Type 1, Diabetes Mellitus Type 2 Musculoskeltal Medical History: Reports: Arthritis Psychiatric Medical History: Reports: Depression Hematology: Reports: Anemia Past Surgical History Past Surgical History: Reports: Section, Orthopedic Surgery, Vascular Surgery - Angio Social History Information Source: Patient Lives with: Family Smoking Status: Former Smoker Frequency of Alcohol Use: None Hx Recreational Drug Use: Yes Drugs: None Hx Prescription Drug Abuse: No - Advance Directive Resuscitation Status: Full Code Family History Family History: DM, Hyperlipidemia, Hypertension Parental Family History Reviewed: Yes Children Family History Reviewed: Yes Sibling(s) Family History Reviewed.: Yes Medication/Allergy Home Medications: Albuterol Sulfate [Proair HFA Inhalation Aerosol 8.5 gm MDI] 2 puff IH Q6HP PRN 11/06/18 Bupropion HCl [Bupropion Xl] 150 mg PO QAM 11/06/18 Carvedilol [Coreg 12.5 mg Tablet] 12.5 mg PO Q12 11/06/18 Celecoxib [Celebrex 100 mg Capsule] 100 mg PO BID 11/06/18 Clopidogrel Bisulfate [Plavix 75 mg Tablet] 75 mg PO DAILY 11/06/18 Ergocalciferol (Vitamin D2) [Drisdol 50,000 unit (1.25MG) Capsule] 50,000 unit PO RICHARD@1000 11/06/18 Furosemide [Lasix 20 mg Tablet] 20 mg PO DAILY 11/06/18 Gabapentin [Neurontin 300 mg Capsule] 300 mg PO Q8 11/06/18 Lisinopril [Prinivil 5 mg Tablet] 5 mg PO DAILY 11/06/18 Mometasone/Formoterol [Dulera 100 Mcg/5 Mcg Inhaler] 2 puff IH BID 11/06/18 Montelukast Sodium [Singulair 10 mg Tablet] 10 mg PO QHS 11/06/18 Sitagliptin Phosphate [Januvia] 100 mg PO DAILY 11/06/18 Acetaminophen [Tylenol 325 mg Tablet] 650 mg PO Q4HP PRN tablet 11/14/18 Docusate Sodium [Colace 100 mg Capsule] 100 mg PO BID capsule 11/14/18 Enoxaparin Sodium [Lovenox Inj 40 mg/0.4 ml Disp.syrin] 40 mg SUBCUT DAILY disp.syrin 11/14/18 Famotidine [Pepcid 20 mg Tablet] 20 mg PO Q12 tablet 11/14/18 Ferrous Sulfate [Feosol 325 mg Tablet] 325 mg PO BIDPCBS tablet 11/14/18 Hydrocodone/Acetaminophen [[place] 5-325 mg Tablet] 0.5 tab PO Q8HP PRN 7 Days #5 tablet 11/14/18 Insulin Glargine,Hum.rec.anlog [Lantus Insulin 100 Unit/mL] 24 unit SUBCUT Q12 insuln.pen 11/14/18 Insulin Lispro [Humalog Insulin (Lispro) 100 unit/mL] 0 - 12 unit SUBCUT ACHS unit 11/14/18 Melatonin [Melatonin 5 mg Tablet] 10 mg PO QHS tablet 11/14/18 Metformin HCl [Glucophage 500 mg Tablet] 500 mg PO BIDACBS tablet 11/14/18 Multivitamin [Tab-A-Shubham (Multiple Vitamin) Tablet] 1 tab PO DAILY tablet 11/14/18 Multivitamins W-Iron [Flintstones Chewable Multivit W/Fe Tab] 2 tab PO DAILY tab.chew 11/14/18 Polyethylene Glycol 3350 [Miralax Powder 17 gm/Packet] 17 gm PO DAILY powd.pack 11/14/18 Allergies/Adverse Reactions: No Known Allergies Allergy (Verified 11/05/18 18:18) Review of Systems ROS unobtainable: Due to mental status Physical Exam Vital Signs: Temp Pulse Resp BP Pulse Ox 100.9 F H 110 H 18 97/51 L 96 12/23/18 04:18 12/23/18 04:18 12/23/18 04:18 12/23/18 04:18 12/23/18 04:18 Intake & Output 12/21/18 12/22/18 12/23/18 11:59 11:59 11:59 Intake Total 972 Balance 972 Weight 56.2 kg General appearance: PRESENT: disheveled, severe distress, thin, well-developed. ABSENT: cooperative Head exam: PRESENT: atraumatic, normocephalic Eye exam: PRESENT: conjunctiva pink, EOMI, PERRLA. ABSENT: scleral icterus Ear exam: PRESENT: normal external ear exam Mouth exam: PRESENT: moist, tongue midline Neck exam: ABSENT: carotid bruit, JVD, lymphadenopathy, thyromegaly Respiratory exam: PRESENT: clear to auscultation roderick. ABSENT: rales, rhonchi, wheezes Cardiovascular exam: PRESENT: tachycardia. ABSENT: diastolic murmur, rubs, systolic murmur Pulses: PRESENT: normal dorsalis pedis pul Vascular exam: PRESENT: normal capillary refill GI/Abdominal exam: PRESENT: distended, hypoactive bowel sounds, normal bowel sounds, soft. ABSENT: guarding, mass, organolmegaly, rebound, tenderness Rectal exam: PRESENT: deferred Extremities exam: PRESENT: full ROM. ABSENT: calf tenderness, clubbing, pedal edema Neurological exam: PRESENT: alert, awake, oriented to person, oriented to place, oriented to time, oriented to situation, CN II-XII grossly intact. ABSENT: motor sensory deficit Psychiatric exam: PRESENT: agitated, anxious Skin exam: PRESENT: erythema, warm, other - [place] right BKA stump necrosis Results Laboratory Results: 12/22/18 16:34 12/22/18 16:34 12/22/18 12/22/18 12/22/18 16:34 16:34 20:37 WBC 14.2 H RBC 3.81 Hgb 10.4 L Hct 31.8 L MCV 83 MCH 27.3 MCHC 32.8 RDW 15.6 H Plt Count 743 H Seg Neutrophils % 78.5 H Lymphocytes % 15.2 Monocytes % 3.6 Eosinophils % 2.1 Basophils % 0.6 Absolute Neutrophils 11.1 H Absolute Lymphocytes 2.1 Absolute Monocytes 0.5 Absolute Eosinophils 0.3 Absolute Basophils 0.1 Sodium 139.6 Potassium 6.0 H* Chloride 101 Carbon Dioxide 22 Anion Gap 17 BUN 21 H Creatinine 0.85 Est GFR ( Amer) > 60 Est GFR (Non-Af Amer) > 60 Glucose 168 H Calcium 10.5 H Total Bilirubin 0.6 AST 11 L ALT 7 L Alkaline Phosphatase 131 H Total Protein 9.1 H Albumin 4.0 Urine Color YELLOW Urine Appearance CLOUDY Urine pH 6.0 Ur Specific [place] 1.009 Urine Protein NEGATIVE Urine Glucose (UA) 50 H Urine Ketones TRACE H Urine Blood SMALL H Urine Nitrite POSITIVE H Ur Leukocyte Esterase LARGE H Urine WBC (Auto) >182 Urine RBC (Auto) 32 12/22/18 16:34 Creatine Kinase < 20 L Impressions: Chest X-Ray 12/22/18 16:09 IMPRESSION: NO ACUTE FINDINGS. Tibia/Fibula X-Ray 12/22/18 16:10 IMPRESSION: Recent appearing right below-knee amputation without obvious evidence of bony erosion or sclerosis to suggest osteomyelitis. Soft tissue swelling of the stump. Assessment and Plan - Diagnosis (1) Severe sepsis Is this a current diagnosis for this admission?: Yes Plan: Secondary to stump necrosis versus UTI, vancomycin and Zosyn initiated, follow- up CBC, lactic acid and urine culture (2) Infection of right below knee amputation Is this a current diagnosis for this admission?: Yes Plan: Surgical consult, (3) Diabetes Is this a current diagnosis for this admission?: Yes Plan: One half long-acting insulin dose with Humalog sliding scale every 6 hours (4) Hyperkalemia Is this a current diagnosis for this admission?: Yes Plan: Without peak T waves, patient is received insulin, albuterol, calcium carbonate, lactulose. Follow-up chemistry (5) Osteomyelitis Is this a current diagnosis for this admission?: Yes Plan: Surgical consult (6) Complicated UTI (urinary tract infection) Is this a current diagnosis for this admission?: Yes Plan: Follow-up urine culture and CBC, vancomycin and Rocephin initiated (7) Iron deficiency anemia Qualifiers: Iron deficiency anemia type: unspecified iron deficiency Qualified Code(s): D50.9 - Iron deficiency anemia, unspecified Is this a current diagnosis for this admission?: Yes Plan: Multifactorial to include chronic disease acute inflammation, follow-up CBC - Time Time Spent with patient: 35 or more minutes - Inpatient Certification Medical Necessity: Need Close Monitoring Due to Risk of Patient Decompensation
[2018-12-23] MEDS ORDERED: LACTULOSE SYRUP 20 GM/30 ML UDCUP PR ONE (05:30)
[2018-12-23] MEDS: GABAPENTIN 300 MG CAPSULE PO SCH ×3 (05:39→23:48)
[2018-12-23] MEDS: HEPARIN SOD (PORCINE) 5,000 UNIT/ML 1 ML SYRINGE SUBCUT SCH (05:45)
--- NOTE | 2018-12-23 05:54 | RADIOLOGY REPORT (SQ) ---
Abdomen two view on 12/23/2018 at 5:27 AM CLINICAL INDICATION: Generalized abdominal pain, nausea COMPARISON: CT from 07/31/2018 FINDINGS: There is no free air. Implantable cardiac recorder device is noted overlying the left lower chest and upper abdomen. There is a 7 mm thin linear calcification overlying the lower pole of the right kidney consistent with known right renal stone. Bowel gas pattern is unremarkable. No increased stool to suggest constipation is noted. Vascular calcifications are noted. No other abnormal calcification or mass effect is noted. Mild degenerative changes are noted in the lower lumbar spine. IMPRESSION: 1. Right nephrolithiasis. 2. Otherwise nonspecific abdomen.
[2018-12-23 06:35] LABS: CREATINE KINASE MB < 0.22 ng/mL (<4.55); TROPONIN I < 0.012 ng/mL
--- NOTE | 2018-12-23 08:16 | EKG REPORT ---
SEVERITY:- OTHERWISE NORMAL ECG - SINUS TACHYCARDIA : Confirmed by: Daphnie King 23-Dec-2018 08:16:00
[2018-12-23] MEDS: METFORMIN HCL 500 MG TABLET PO SCH ×2 (08:22→17:44)
[2018-12-23] MEDS: DOCUSATE SODIUM 100 MG CAPSULE PO SCH ×2 (09:52→17:45)
[2018-12-23] MEDS: SITAGLIPTIN PHOSPHATE 50 MG TABLET PO SCH (09:52)
[2018-12-23] MEDS: FERROUS SULFATE 325 MG TABLET PO SCH ×2 (09:52→17:45)
[2018-12-23] MEDS: MULTIVITAMINS W-IRON TABLET, CHEWABLE PO SCH (09:52)
[2018-12-23] MEDS: CLOPIDOGREL BISULFATE 75 MG TABLET PO SCH (09:53)
[2018-12-23] MEDS: POLYETHYLENE GLYCOL 3350 POWDER 17 GM/1 PACKET PO SCH (09:53)
[2018-12-23] MEDS: FAMOTIDINE 20 MG TABLET PO SCH ×2 (09:53→23:48)
[2018-12-23] MEDS: LISINOPRIL 5 MG TABLET PO SCH (09:53)
[2018-12-23] MEDS: ENOXAPARIN SODIUM INJ 40 MG/0.4 ML DISP.SYRIN SUBCUT SCH (09:53)
[2018-12-23] MEDS: FUROSEMIDE 20 MG TABLET PO SCH (09:53)
[2018-12-23] MEDS: BUPROPION HCL 75 MG TABLET PO SCH ×2 (09:53→17:48)
--- NOTE | 2018-12-23 09:55 | PDOC PROGRESS REPORT ---
Subjective Progress Note for:: 12/23/18 Subjective:: Complaining of right BKA stump pain Reason For Visit: HYPERKALEMIA W T WAVE PEAK,R STUMP NECROSIS Physical Exam Vital Signs: Temp Pulse Resp BP Pulse Ox 99.6 F 105 H 14 106/58 L 98 12/23/18 07:56 12/23/18 07:56 12/23/18 07:56 12/23/18 07:56 12/23/18 07:56 Intake & Output 12/22/18 12/23/18 12/24/18 06:59 06:59 06:59 Intake Total 1971 100 Balance 1971 100 Weight 54.3 kg General appearance: PRESENT: no acute distress, mild distress Extremities exam: PRESENT: other - Dressing removed; superior and inferior skin flaps have margin of necrotic tissue, but well delineated from the intact skin. There is some underlying granulation tissue at the site of dehiscence Musculoskeletal exam: PRESENT: other Results Laboratory Results: 12/22/18 16:34 12/22/18 16:34 12/22/18 12/22/18 12/22/18 16:34 16:34 20:37 WBC 14.2 H RBC 3.81 Hgb 10.4 L Hct 31.8 L MCV 83 MCH 27.3 MCHC 32.8 RDW 15.6 H Plt Count 743 H Seg Neutrophils % 78.5 H Lymphocytes % 15.2 Monocytes % 3.6 Eosinophils % 2.1 Basophils % 0.6 Absolute Neutrophils 11.1 H Absolute Lymphocytes 2.1 Absolute Monocytes 0.5 Absolute Eosinophils 0.3 Absolute Basophils 0.1 Sodium 139.6 Potassium 6.0 H* Chloride 101 Carbon Dioxide 22 Anion Gap 17 BUN 21 H Creatinine 0.85 Est GFR ( Amer) > 60 Est GFR (Non-Af Amer) > 60 Glucose 168 H Calcium 10.5 H Total Bilirubin 0.6 AST 11 L ALT 7 L Alkaline Phosphatase 131 H Total Protein 9.1 H Albumin 4.0 Urine Color YELLOW Urine Appearance CLOUDY Urine pH 6.0 Ur Specific [place] 1.009 Urine Protein NEGATIVE Urine Glucose (UA) 50 H Urine Ketones TRACE H Urine Blood SMALL H Urine Nitrite POSITIVE H Ur Leukocyte Esterase LARGE H Urine WBC (Auto) >182 Urine RBC (Auto) 32 12/22/18 12/23/18 12/23/18 16:34 05:40 05:40 Creatine Kinase < 20 L < 20 L CK-MB (CK-2) < 0.22 Troponin I < 0.012 Impressions: Chest X-Ray 12/22/18 16:09 IMPRESSION: NO ACUTE FINDINGS. Tibia/Fibula X-Ray 12/22/18 16:10 IMPRESSION: Recent appearing right below-knee amputation without obvious e vidence of bony erosion or sclerosis to suggest osteomyelitis. Soft tissue swelling of the stump. Abdomen X-Ray 12/23/18 04:33 IMPRESSION: 1. Right nephrolithiasis. 2. Otherwise nonspecific abdomen. Assessment & Plan - Diagnosis (1) Infection of right below knee amputation Is this a current diagnosis for this admission?: Yes Plan: Impression: Demarcated superior and inferior skin flaps right stump patient with peripheral vascular disease, and diabetes mellitus. Recommendations: 1. Repeat potassium check today 2. Keep patient n.p.o.; will take her to the operating room and debride the skin flaps, wash it out and consider placing a wound VAC; I discussed this with Dr. Jayson Cardenas. Concerns remain about her pain at rest, possibly related to ischemia. She may end up requiring an AKA. I explained the above to the patient. I believe she understands the graduated plan
[2018-12-23] MEDS ORDERED: CELECOXIB 100 MG CAPSULE PO SCH (10:00)
[2018-12-23 10:24] LABS: ANION GAP 13 (5-19); BLOOD UREA NITROGEN 17 mg/dL (7-20); CALCIUM 9.7 mg/dL (8.4-10.2); CARBON DIOXIDE 22 mmol/L (22-30); CHLORIDE 102 mmol/L (98-107); GLUCOSE 324 mg/dL (75-110); SODIUM 137.2 mmol/L (137-145)
[2018-12-23] MEDS ORDERED: (PENDING PHARMACY ID) (Buspirone Hcl [Buspar 15 Mg Tablet] 7.5 MG) PO PRN (10:24)
[2018-12-23 10:53] LABS: MEAN CORPUSCULAR HEMOGLOBIN 27.8 pg (27.0-33.4); MEAN CORPUSCULAR HGB CONC 33.4 g/dL (32.0-36.0); MEAN CORPUSCULAR VOLUME 83 fl (80-97); PLATELET COUNT 519 10^3/uL (150-450); RED BLOOD COUNT 3.24 10^6/uL (3.72-5.28); RED CELL DISTRIBUTION WIDTH 15.4 % (11.5-14.0); WHITE BLOOD COUNT 14.5 10^3/uL (4.0-10.5)
[2018-12-23] MEDS: VANCOMYCIN HCL 500 MG in DEXTROSE 5%-WATER 100 ML IV SCH ×2 (11:01→23:46)
[2018-12-23] MEDS: FLUTICASONE/VILANTEROL 100-25 MCG/DOSE IH SCH (11:02)
[2018-12-23] MEDS: INSULIN LISPRO 100 UNIT/ML 3 ML VIAL SUBCUT SCH ×3 (11:03→18:41)
[2018-12-23 12:29] LABS: CREATINE KINASE MB < 0.22 ng/mL (<4.55); TROPONIN I < 0.012 ng/mL
--- NOTE | 2018-12-23 16:35 | PDOC PROGRESS REPORT ---
Subjective Progress Note for:: 12/23/18 Subjective:: DUSTIN MALDONADO is a 58 year old female with past medical history of diabetes, hypertension, CVA without residual, peripheral neuropathy, dyslipidemia, COPD, iron deficiency anemia, anxiety, recurrent pyelonephritis and BKA November 09, 2018 who was admitted 12/22/2018 for sepsis secondary to right BKA surgical site infection. Patient was seen on morning rounds with her mother present. She was found resting in bed comfortably with room air. She did wake easily when I set her name, but was minimally conversational, did not make eye contact, with delayed responses. Patient's mother reported that she was unhappy with planned surgery. Patient did advise that she feels better having talked to the surgeon; hopefully he will be able to salvage her stump. She denies pain at present but does report anxiety. Otherwise she has no new questions or concerns. She denies fever, chills, chest pain, palpitations, dyspnea, orthopnea, abdominal pain, vomiting and diarrhea. No concerns per nursing. Reason For Visit: HYPERKALEMIA W T WAVE PEAK,R STUMP NECROSIS Physical Exam Vital Signs: Temp Pulse Resp BP Pulse Ox 99.5 F 106 H 16 142/65 H 96 12/23/18 16:20 12/23/18 16:20 12/23/18 16:20 12/23/18 16:20 12/23/18 16:20 Intake & Output 12/22/18 12/23/18 12/24/18 06:59 06:59 06:59 Intake Total 2972 300 Balance 2972 300 Weight 54.3 kg General appearance: PRESENT: no acute distress, thin, well-developed Head exam: PRESENT: atraumatic, normocephalic Eye exam: PRESENT: conjunctiva pink, EOMI, PERRLA. ABSENT: scleral icterus Ear exam: PRESENT: normal external ear exam Mouth exam: PRESENT: moist, tongue midline Neck exam: ABSENT: carotid bruit, JVD, lymphadenopathy, thyromegaly Respiratory exam: PRESENT: clear to auscultation roderick. ABSENT: rales, rhonchi, wheezes Cardiovascular exam: PRESENT: RRR, tachycardia. ABSENT: diastolic murmur, rubs, systolic murmur Pulses: PRESENT: normal dorsalis pedis pul Vascular exam: PRESENT: normal capillary refill GI/Abdominal exam: PRESENT: normal bowel sounds, soft. ABSENT: distended, guarding, mass, organolmegaly, rebound, tenderness Rectal exam: PRESENT: deferred Extremities exam: PRESENT: full ROM, other - Right BKA. ABSENT: calf tenderness, clubbing, pedal edema Neurological exam: PRESENT: alert, awake, oriented to person, oriented to place, oriented to time, oriented to situation, CN II-XII grossly intact. ABSENT: motor sensory deficit Psychiatric exam: PRESENT: anxious, flat affect, normal mood. ABSENT: homicidal ideation, suicidal ideation Skin exam: PRESENT: dry, warm, other - BKA stump not visualized; clean dry dressing intact. ABSENT: cyanosis, rash Results Laboratory Results: 12/23/18 05:40 12/23/18 05:40 12/22/18 12/22/18 12/22/18 16:34 16:34 20:37 WBC 14.2 H RBC 3.81 Hgb 10.4 L Hct 31.8 L MCV 83 MCH 27.3 MCHC 32.8 RDW 15.6 H Plt Count 743 H Seg Neutrophils % 78.5 H Lymphocytes % 15.2 Monocytes % 3.6 Eosinophils % 2.1 Basophils % 0.6 Absolute Neutrophils 11.1 H Absolute Lymphocytes 2.1 Absolute Monocytes 0.5 Absolute Eosinophils 0.3 Absolute Basophils 0.1 Sodium 139.6 Potassium 6.0 H* Chloride 101 Carbon Dioxide 22 Anion Gap 17 BUN 21 H Creatinine 0.85 Est GFR ( Amer) > 60 Est GFR (Non-Af Amer) > 60 Glucose 168 H Calcium 10.5 H Total Bilirubin 0.6 AST 11 L ALT 7 L Alkaline Phosphatase 131 H Total Protein 9.1 H Albumin 4.0 Urine Color YELLOW Urine Appearance CLOUDY Urine pH 6.0 Ur Specific [place] 1.009 Urine Protein NEGATIVE Urine Glucose (UA) 50 H Urine Ketones TRACE H Urine Blood SMALL H Urine Nitrite POSITIVE H Ur Leukocyte Esterase LARGE H Urine WBC (Auto) >182 Urine RBC (Auto) 32 12/23/18 12/23/18 05:40 05:40 WBC 14.5 H RBC 3.24 L Hgb 9.0 L Hct 27.0 L MCV 83 MCH 27.8 MCHC 33.4 RDW 15.4 H Plt Count 519 H Seg Neutrophils % Lymphocytes % Monocytes % Eosinophils % Basophils % Absolute Neutrophils Absolute Lymphocytes Absolute Monocytes Absolute Eosinophils Absolute Basophils Sodium 137.2 Potassium 5.0 D Chloride 102 Carbon Dioxide 22 Anion Gap 13 BUN 17 Creatinine 0.91 Est GFR ( Amer) > 60 Est GFR (Non-Af Amer) > 60 Glucose 324 H Calcium 9.7 Total Bilirubin AST ALT Alkaline Phosphatase Total Protein Albumin Urine Color Urine Appearance Urine pH Ur Specific [place] Urine Protein Urine Glucose (UA) Urine Ketones Urine Blood Urine Nitrite Ur Leukocyte Esterase Urine WBC (Auto) Urine RBC (Auto) 12/22/18 12/23/18 12/23/18 16:34 05:40 05:40 Creatine Kinase < 20 L < 20 L CK-MB (CK-2) < 0.22 Troponin I < 0.012 12/23/18 12/23/18 11:37 11:37 Creatine Kinase < 20 L CK-MB (CK-2) < 0.22 Troponin I < 0.012 Impressions: Chest X-Ray 12/22/18 16:09 IMPRESSION: NO ACUTE FINDINGS. Tibia/Fibula X-Ray 12/22/18 16:10 IMPRESSION: Recent appearing right below-knee amputation without obvious evidence of bony erosion or sclerosis to suggest osteomyelitis. Soft tissue swelling of the stump. Abdomen X-Ray 12/23/18 04:33 IMPRESSION: 1. Right nephrolithiasis. 2. Otherwise nonspecific abdomen. Assessment and Plan - Diagnosis (1) Infection of right below knee amputation Is this a current diagnosis for this admission?: Yes Plan: Blood cultures are pending. Wound culture positive for gram-positive cocci in clusters. Patient was empirically placed on IV vancomycin and Zosyn. Surgery has been consulted; to the OR today for debridement. Wound care per their expertise. (2) Diabetes Qualifiers: Diabetes mellitus type: type 2 Diabetes mellitus needle leader insulin use: with needle leader use Is this a current diagnosis for this admission?: Yes Plan: Patient is currently in n.p.o. status; therefore started on one half long-acting insulin dose. Accu-Cheks every 6 hours with Humalog sliding scale coverage. Hypoglycemia protocol. Advance to consistent carb diet once cleared by surgery. Registered dietitian and clinical systems educator consulted. (3) Hyperkalemia Is this a current diagnosis for this admission?: Yes Plan: Resolved. Potassium of 6.0 on admission; without peak T waves Patient is received insulin, albuterol, calcium carbonate, lactulose. We will continue to monitor with daily chemistries. (4) Osteomyelitis Is this a current diagnosis for this admission?: Yes Plan: As above. (5) Iron deficiency anemia Qualifiers: Iron deficiency anemia type: unspecified iron deficiency Qualified Code(s): D50.9 - Iron deficiency anemia, unspecified Is this a current diagnosis for this admission?: Yes Plan: Multifactorial to include chronic disease acute inflammation Daily multivitamin and ferrous sulfate supplementation. Registered dietitian is consulted. (6) Severe sepsis Is this a current diagnosis for this admission?: Yes Plan: Secondary to stump necrosis versus UTI Blood culture pending. Wound culture with gram-positive cocci. Urine culture pending. Patient is empirically placed on IV vancomycin and Zosyn. (7) UTI (urinary tract infection) Is this a current diagnosis for this admission?: Yes Plan: Urinalysis positive for UTI. Urine culture pending. Empiric vancomycin and Zosyn; adjust as cultures result. - Time Time Spent with patient: 25-34 minutes Medications reviewed and adjusted accordingly: Yes
[2018-12-23 17:39] LABS: CREATINE KINASE MB < 0.22 ng/mL (<4.55); TROPONIN I < 0.012 ng/mL
[2018-12-23] MEDS: LACTULOSE SYRUP 20 GM/30 ML UDCUP PR SCH (17:48)
[2018-12-23] MEDS ORDERED: PROMETHAZINE HCL INJ 25 MG/1 ML VIAL IV PRN ×2 (21:09)
[2018-12-23] MEDS ORDERED: FENTANYL CITRATE INJ/PF 100 MCG/2 ML AMPUL IV PRN ×3 (21:09)
[2018-12-23] MEDS ORDERED: DIPHENHYDRAMINE HCL 50 MG/ML VIAL IV PRN (21:09)
[2018-12-23] MEDS ORDERED: MEPERIDINE HCL/PF INJ 25 MG/1 ML DISP.SYRIN IV PRN (21:09)
[2018-12-23] MEDS ORDERED: ONDANSETRON HCL INJ/PF 4 MG/2 ML SDV IV PRN (21:09)
[2018-12-23] MEDS ORDERED: MIDAZOLAM 2 MG/2 ML INJ ONE (21:41)
[2018-12-23] MEDS ORDERED: FENTANYL CITRATE INJ/PF 100 MCG/2 ML AMPUL ONE (21:41)
[2018-12-23] MEDS ORDERED: PROPOFOL INJ 200 MG/20 ML VIAL IV ONE (21:42)
[2018-12-23] MEDS ORDERED: ONDANSETRON HCL INJ/PF 4 MG/2 ML SDV ONE (21:42)
[2018-12-23] MEDS ORDERED: LIDOCAINE 1% INJ-PF (10 MG/ML) 30 ML SDV ONE (22:19)
[2018-12-23] MEDS: FENTANYL CITRATE INJ/PF 100 MCG/2 ML AMPUL ONE ×2 (22:38→22:43)
--- NOTE | 2018-12-23 22:42 | Operative Report ---
Operative Report DATE OF SURGERY: 12/23/18 PREOPERATIVE DIAGNOSIS: Dehisced, infected, ischemic right BKA stump POSTOPERATIVE DIAGNOSIS: Same OPERATION: Excisional debridement of eschar, fat, fascia, and skin from superior and inferior tissue flaps right below the knee amputation wound SURGEON: ANU SO ANESTHESIA: LMAC TISSUE REMOVED OR ALTERED: Nonviable eschar, skin, fat, fascia, muscle fragments COMPLICATIONS: None ESTIMATED BLOOD LOSS: 10 cc INTRAOPERATIVE FINDINGS: See below PROCEDURE: The patient was taken to the preop holding her to the main operating room where LMAC anesthesia was used. Right stump dressing was removed, and the right below the knee amputation exposed, prepped and draped sterile fashion. Surgical plan surgical timeout were conducted. The findings were significant for a dehisced right below the knee dictation stump wound with nonviable skin well demarcated involving the superior and inferior skin flap all nonviable skin, subcutaneous fat, muscle fragments and fascial fragments sharply debrided with Bass scissors and #10 blade. The stump was scrubbed vigorously with Betadine. There was around the skin edges. There were lateral and medial pockets between the superior portion of the stump in the inferior flap were open and irrigated. The central portion of the tissue approximation remained intact. Intraoperative cultures were obtained prior to irrigation. At this point we felt the excisional debridement was sufficient to allow the stump declare itself. Dressings involving Xeroform 4 x 4 Kerlix and Covan applied. Patient tolerated procedure well. Plan: 1. We will continue IV antibiotics, dressing changes, and reassess the viability of the stump. She may be a candidate for closure by secondary intention versus VAC therapy; conversely right [id number] amputation may also be a consideration.
[2018-12-23] MEDS: MONTELUKAST SODIUM 10 MG TABLET PO SCH (23:47)
[2018-12-24] MEDS: KETOROLAC TROMETHAMINE INJ/PF 30 MG/1 ML SDV IV PRN (01:08)
[2018-12-24] MEDS: HALOPERIDOL LACTATE INJ 5 MG/1 ML VIAL IV PRN ×2 (01:09→23:05)
[2018-12-24 05:32] LABS: ABSOLUTE EOSINOPHILS # (AUTO) 0.8 10^3/uL (0.0-0.6); ABSOLUTE LYMPHOCYTES (AUTO) 0.9 10^3/uL (0.5-4.7); ABSOLUTE MONOCYTES (AUTO) 0.3 10^3/uL (0.1-1.4); ABSOLUTE NEUT (AUTO) 5.5 10^3/uL (1.7-8.2); BASOPHILS % (AUTO) 0.3 % (0-2); EOSINOPHILS % (AUTO) 10.7 % (0-6); HEMATOCRIT 23.3 % (36.0-47.0); LYMPHOCYTES % (AUTO) 11.5 % (13-45); MEAN CORPUSCULAR VOLUME 82 fl (80-97); MONOCYTES % (AUTO) 3.7 % (3-13); PLATELET COUNT 390 10^3/uL (150-450); RED BLOOD COUNT 2.83 10^6/uL (3.72-5.28); RED CELL DISTRIBUTION WIDTH 15.1 % (11.5-14.0); SEGMENTED NEUTROPHILS % (AUTO) 73.8 % (42-78); TOTAL CELLS COUNTED % (AUTO) 100 %; WHITE BLOOD COUNT 7.5 10^3/uL (4.0-10.5)
[2018-12-24 05:45] LABS: HEMOGLOBIN 7.9 g/dL (12.0-15.5)
[2018-12-24 05:54] LABS: ANION GAP 11 (5-19); BLOOD UREA NITROGEN 8 mg/dL (7-20); CALCIUM 8.6 mg/dL (8.4-10.2); CARBON DIOXIDE 19 mmol/L (22-30); CHLORIDE 111 mmol/L (98-107); GLUCOSE 168 mg/dL (75-110); SODIUM 141.4 mmol/L (137-145)
[2018-12-24] MEDS: PIPERACILLIN SODIUM/TAZOBACTAM 4.5 GM in NORMAL SALINE 100 ML IV SCH ×4 (06:13→23:05)
[2018-12-24] MEDS: LACTULOSE SYRUP 20 GM/30 ML UDCUP PR SCH ×2 (06:13→18:28)
[2018-12-24] MEDS: GABAPENTIN 300 MG CAPSULE PO SCH ×3 (06:16→22:32)
[2018-12-24] MEDS: HYDROCODONE/ACETAMINOPHEN 5-325 MG TABLET PO PRN (06:16)
[2018-12-24 06:56] LABS: POTASSIUM 3.6 mmol/L (3.6-5.0)
[2018-12-24] MEDS ORDERED: NORMAL SALINE 250 ML IV PRN ×2 (08:20)
--- NOTE | 2018-12-24 09:33 | PDOC PROGRESS REPORT ---
Subjective Progress Note for:: 12/24/18 Subjective:: DUSTIN MALDONADO is a 58 year old female with past medical history of diabetes, hypertension, CVA without residual, peripheral neuropathy, dyslipidemia, COPD, iron deficiency anemia, anxiety, recurrent pyelonephritis and BKA November 09, 2018 who was admitted 12/22/2018 for sepsis secondary to right BKA surgical site infection. Patient was seen this morning on rounds, she is resting comfortably in bed on room. She is POD#1 debridement of her right stump. The patient's Hgb this morning dropped from 9-->7.9. Looking at operative records, she only received 450ml IVF and there was minimal blood loss. No obvious source of blood loss at this time but plan to transfuse 1U PRBC today. Will check anemia studies with AM labs tomorrow. Reason For Visit: HYPERKALEMIA W T WAVE PEAK,R STUMP NECROSIS Physical Exam Vital Signs: Temp Pulse Resp BP Pulse Ox 97.2 F 81 16 130/50 H 96 12/24/18 07:09 12/24/18 07:09 12/24/18 07:09 12/24/18 07:09 12/24/18 07:09 Intake & Output 12/23/18 12/24/18 12/25/18 06:59 06:59 06:59 Intake Total 2972 4150 Output Total 1800 Balance 2972 2350 Weight 54.3 kg 56.7 kg General appearance: PRESENT: no acute distress, well-developed, well-nourished Head exam: PRESENT: atraumatic, normocephalic Eye exam: PRESENT: conjunctiva pink, EOMI, PERRLA. ABSENT: scleral icterus Ear exam: PRESENT: normal external ear exam Mouth exam: PRESENT: moist, tongue midline Teeth exam: PRESENT: poor dentation Neck exam: ABSENT: carotid bruit, JVD, lymphadenopathy, thyromegaly Respiratory exam: PRESENT: clear to auscultation roderick, symmetrical, unlabored. ABSENT: rales, rhonchi, wheezes Cardiovascular exam: PRESENT: RRR. ABSENT: diastolic murmur, rubs, systolic murmur Pulses: PRESENT: normal radial pulses, normal dorsalis pedis pul - LLE ONLY/ R BKA Vascular exam: PRESENT: normal capillary refill GI/Abdominal exam: PRESENT: normal bowel sounds, soft. ABSENT: distended, guarding, mass, organolmegaly, rebound, tenderness Rectal exam: PRESENT: deferred Extremities exam: PRESENT: full ROM. ABSENT: calf tenderness, clubbing, joint swelling, pedal edema Musculoskeletal exam: PRESENT: deformity - R BKA. ABSENT: ambulatory - WHEELCHA IR, normal inspection Neurological exam: PRESENT: alert, awake, oriented to person, oriented to place, oriented to time, oriented to situation Psychiatric exam: PRESENT: appropriate affect, normal mood Skin exam: PRESENT: dry, intact, warm. ABSENT: cyanosis, rash Additional comments: R BKA WRAPPED WITH OMHAMUD BANDAGE Results Laboratory Results: 12/24/18 04:26 12/24/18 04:26 12/23/18 12/23/18 12/24/18 05:40 05:40 04:26 WBC 14.5 H 7.5 RBC 3.24 L 2.83 L Hgb 9.0 L 7.9 L Hct 27.0 L 23.3 L MCV 83 82 MCH 27.8 28.0 MCHC 33.4 34.0 RDW 15.4 H 15.1 H Plt Count 519 H 390 Seg Neutrophils % 73.8 Lymphocytes % 11.5 L Monocytes % 3.7 Eosinophils % 10.7 H Basophils % 0.3 Absolute Neutrophils 5.5 Absolute Lymphocytes 0.9 Absolute Monocytes 0.3 Absolute Eosinophils 0.8 H Absolute Basophils 0.0 Sodium 137.2 Potassium 5.0 D Chloride 102 Carbon Dioxide 22 Anion Gap 13 BUN 17 Creatinine 0.91 Est GFR ( Amer) > 60 Est GFR (Non-Af Amer) > 60 Glucose 324 H Calcium 9.7 12/24/18 04:26 WBC RBC Hgb Hct MCV MCH MCHC RDW Plt Count Seg Neutrophils % Lymphocytes % Monocytes % Eosinophils % Basophils % Absolute Neutrophils Absolute Lymphocytes Absolute Monocytes Absolute Eosinophils Absolute Basophils Sodium 141.4 Potassium 3.6 D Chloride 111 H Carbon Dioxide 19 L Anion Gap 11 BUN 8 Creatinine 0.71 Est GFR ( Amer) > 60 Est GFR (Non-Af Amer) > 60 Glucose 168 H Calcium 8.6 12/22/18 12/23/18 12/23/18 16:34 05:40 05:40 Creatine Kinase < 20 L < 20 L CK-MB (CK-2) < 0.22 Troponin I < 0.012 12/23/18 12/23/18 12/23/18 11:37 11:37 16:50 Creatine Kinase < 20 L < 20 L CK-MB (CK-2) < 0.22 Troponin I < 0.012 12/23/18 16:50 Creatine Kinase CK-MB (CK-2) < 0.22 Troponin I < 0.012 Impressions: Chest X-Ray 12/22/18 16:09 IMPRESSION: NO ACUTE FINDINGS. Tibia/Fibula X-Ray 12/22/18 16:10 IMPRESSION: Recent appearing right below-knee amputation without obvious e vidence of bony erosion or sclerosis to suggest osteomyelitis. Soft tissue swelling of the stump. Abdomen X-Ray 12/23/18 04:33 IMPRESSION: 1. Right nephrolithiasis. 2. Otherwise nonspecific abdomen. Status: Imported from PACS Assessment and Plan - Diagnosis (1) Infection of right below knee amputation Is this a current diagnosis for this admission?: Yes Plan: Blood cultures are pending. Wound culture positive for staph aureus. Patient was empirically placed on IV vancomycin and Zosyn. POD#1 R stump debridement. Wound care per their expertise. Patient's amputation was very recent, only 1 month ago, and she is already havin g difficulty with wound healing. Will require close follow up with wound care clinic. (2) Diabetes Qualifiers: Diabetes mellitus type: type 2 Diabetes mellitus long winder tender insulin use: with care home use Is this a current diagnosis for this admission?: Yes Plan: Accu-Cheks every 6 hours with Humalog sliding scale coverage. 1/2 dose home dose lantus Hypoglycemia protocol. Advance to consistent carb diet once cleared by surgery. Registered dietitian and music educator consulted. (3) Hyperkalemia Is this a current diagnosis for this admission?: Yes Plan: Resolved. Potassium of 6.0 on admission; without peak T waves Patient is received insulin, albuterol, calcium carbonate, lactulose. We will continue to monitor with daily chemistries. (4) Osteomyelitis Is this a current diagnosis for this admission?: Yes Plan: As above. (5) Iron deficiency anemia Qualifiers: Iron deficiency anemia type: unspecified iron deficiency Qualified Code(s): D50.9 - Iron deficiency anemia, unspecified Is this a current diagnosis for this admission?: Yes Plan: Multifactorial to include chronic disease acute inflammation Daily multivitamin and ferrous sulfate supplementation. Registered dietitian is consulted. (6) Severe sepsis Is this a current diagnosis for this admission?: Yes Plan: Secondary to stump necrosis versus UTI (leuk esterase & WBC) Blood culture pending. Wound culture with staph aureus. Urine culture pending. Patient is empirically placed on IV vancomycin and Zosyn. (7) UTI (urinary tract infection) Is this a current diagnosis for this admission?: Yes Plan: Urinalysis positive for UTI (leuk esterase & >182 WBC) Urine culture pending. Empiric vancomycin and Zosyn; adjust as cultures result. - Time Time Spent with patient: 15-24 minutes Medications reviewed and adjusted accordingly: Yes Anticipated discharge: Home Within: within 72 hours - Inpatient Certification Based on my medical assessment, after consideration of the patient's comorbidities, presenting symptoms, or acuity I expect that the services needed warrant INPATIENT care.: Yes I certify that my determination is in accordance with my understanding of Medicare's requirements for reasonable and necessary INPATIENT services [42 CFR 412.3e].: Yes Medical Necessity: Risk of Complication if Not Cared For in Hospital
[2018-12-24] MEDS: MORPHINE SULFATE 10 MG/ML INJ IV PRN ×4 (09:47→23:05)
[2018-12-24] MEDS: FAMOTIDINE 20 MG TABLET PO SCH ×2 (09:48→22:32)
[2018-12-24] MEDS: LISINOPRIL 5 MG TABLET PO SCH (09:48)
[2018-12-24] MEDS: METFORMIN HCL 500 MG TABLET PO SCH ×2 (09:48→18:31)
[2018-12-24] MEDS: SITAGLIPTIN PHOSPHATE 50 MG TABLET PO SCH (09:48)
[2018-12-24] MEDS: CLOPIDOGREL BISULFATE 75 MG TABLET PO SCH (09:48)
[2018-12-24] MEDS: FUROSEMIDE 20 MG TABLET PO SCH (09:48)
[2018-12-24] MEDS: INSULIN LISPRO 100 UNIT/ML 3 ML VIAL SUBCUT SCH ×3 (09:49→18:28)
[2018-12-24] MEDS: DOCUSATE SODIUM 100 MG CAPSULE PO SCH ×2 (09:49→18:28)
[2018-12-24] MEDS: CARVEDILOL 12.5 MG TABLET PO SCH ×2 (09:49→22:32)
[2018-12-24] MEDS: FERROUS SULFATE 325 MG TABLET PO SCH ×2 (09:49→18:31)
[2018-12-24] MEDS: BUPROPION HCL 75 MG TABLET PO SCH ×2 (09:55→18:28)
[2018-12-24] MEDS: FLUTICASONE/VILANTEROL 100-25 MCG/DOSE IH SCH (09:55)
[2018-12-24] MEDS: ENOXAPARIN SODIUM INJ 40 MG/0.4 ML DISP.SYRIN SUBCUT SCH (09:56)
[2018-12-24] MEDS: POLYETHYLENE GLYCOL 3350 POWDER 17 GM/1 PACKET PO SCH (09:56)
[2018-12-24] MEDS: VANCOMYCIN HCL 500 MG in DEXTROSE 5%-WATER 100 ML IV SCH ×2 (10:04→22:32)
[2018-12-24] MEDS: MULTIVITAMINS W-IRON TABLET, CHEWABLE PO SCH (10:04)
[2018-12-24] MEDS ORDERED: DIPHENHYDRAMINE HCL 50 MG/ML VIAL ONE (17:02)
[2018-12-24] MEDS: INSULIN GLARGINE,HUM.REC.ANLOG 1,000 UNIT/10 ML VIAL SUBCUT SCH (22:32)
[2018-12-24] MEDS: MONTELUKAST SODIUM 10 MG TABLET PO SCH (22:32)
[2018-12-24] MEDS: MELATONIN 5 MG TABLET PO SCH (22:33)
[2018-12-24 22:36] LABS: VANCOMYCIN,TROUGH 11.5 ug/mL (5.0-20.0)
[2018-12-24 23:20] LABS: ABSOLUTE BASOPHILS # (AUTO) 0.1 10^3/uL (0.0-0.2); ABSOLUTE EOSINOPHILS # (AUTO) 1.6 10^3/uL (0.0-0.6); ABSOLUTE LYMPHOCYTES (AUTO) 1.2 10^3/uL (0.5-4.7); ABSOLUTE MONOCYTES (AUTO) 0.6 10^3/uL (0.1-1.4); ABSOLUTE NEUT (AUTO) 8.1 10^3/uL (1.7-8.2); BASOPHILS % (AUTO) 0.5 % (0-2); EOSINOPHILS % (AUTO) 13.9 % (0-6); HEMATOCRIT 29.9 % (36.0-47.0); HEMOGLOBIN 9.9 g/dL (12.0-15.5); LYMPHOCYTES % (AUTO) 10.4 % (13-45); MEAN CORPUSCULAR VOLUME 85 fl (80-97); MONOCYTES % (AUTO) 5.1 % (3-13); PLATELET COUNT 401 10^3/uL (150-450); RED BLOOD COUNT 3.52 10^6/uL (3.72-5.28); RED CELL DISTRIBUTION WIDTH 15.6 % (11.5-14.0); SEGMENTED NEUTROPHILS % (AUTO) 70.1 % (42-78); TOTAL CELLS COUNTED % (AUTO) 100 %; WHITE BLOOD COUNT 11.5 10^3/uL (4.0-10.5)
[2018-12-25] MEDS: HYDRALAZINE HCL INJ/PF 20 MG/1 ML SDV IV PRN (03:55)
[2018-12-25] MEDS: MORPHINE SULFATE 10 MG/ML INJ IV PRN (04:25)
[2018-12-25] MEDS: LACTULOSE SYRUP 20 GM/30 ML UDCUP PR SCH ×2 (06:17→17:11)
[2018-12-25] MEDS: GABAPENTIN 300 MG CAPSULE PO SCH ×3 (06:18→23:31)
[2018-12-25] MEDS: PIPERACILLIN SODIUM/TAZOBACTAM 4.5 GM in NORMAL SALINE 100 ML IV SCH ×2 (06:18→12:58)
--- NOTE | 2018-12-25 07:01 | PDOC PROGRESS REPORT ---
Subjective Progress Note for:: 12/24/18 Reason For Visit: HYPERKALEMIA W T WAVE PEAK,R STUMP NECROSIS Physical Exam Vital Signs: Temp Pulse Resp BP Pulse Ox 98.3 F 102 H 15 137/61 H 95 12/24/18 20:10 12/24/18 20:10 12/24/18 20:10 12/24/18 20:10 12/24/18 20:10 Intake & Output 12/23/18 12/24/18 12/25/18 06:59 06:59 06:59 Intake Total 2972 4150 870 Output Total 1800 700 Balance 2972 2350 170 Weight 54.3 kg 56.7 kg Results Laboratory Results: 12/24/18 04:26 12/24/18 04:26 12/24/18 12/24/18 12/24/18 04:26 04:26 09:25 WBC 7.5 RBC 2.83 L Hgb 7.9 L Hct 23.3 L MCV 82 MCH 28.0 MCHC 34.0 RDW 15.1 H Plt Count 390 Seg Neutrophils % 73.8 Lymphocytes % 11.5 L Monocytes % 3.7 Eosinophils % 10.7 H Basophils % 0.3 Absolute Neutrophils 5.5 Absolute Lymphocytes 0.9 Absolute Monocytes 0.3 Absolute Eosinophils 0.8 H Absolute Basophils 0.0 Sodium 141.4 Potassium 3.6 D Chloride 111 H Carbon Dioxide 19 L Anion Gap 11 BUN 8 Creatinine 0.71 Est GFR ( Amer) > 60 Est GFR (Non-Af Amer) > 60 Glucose 168 H Calcium 8.6 Blood Type O POSITIVE Antibody Screen NEGATIVE 12/22/18 19:00 Knee - Below Knee Amputation Site Gram Stain - Final 12/22/18 19:00 Knee - Below Knee Amputation Site Wound Culture - Final Staphylococcus Aureus No Anaerobic Organisms 12/22/18 12/23/18 12/23/18 16:34 05:40 05:40 Creatine Kinase < 20 L < 20 L CK-MB (CK-2) < 0.22 Troponin I < 0.012 12/23/18 12/23/18 12/23/18 11:37 11:37 16:50 Creatine Kinase < 20 L < 20 L CK-MB (CK-2) < 0.22 Troponin I < 0.012 12/23/18 16:50 Creatine Kinase CK-MB (CK-2) < 0.22 Troponin I < 0.012 Impressions: Chest X-Ray 12/22/18 16:09 IMPRESSION: NO ACUTE FINDINGS. Tibia/Fibula X-Ray 12/22/18 16:10 IMPRESSION: Recent appearing right below-knee amputation without obvious evidence of bony erosion or sclerosis to suggest osteomyelitis. Soft tissue swelling of the stump. Abdomen X-Ray 12/23/18 04:33 IMPRESSION: 1. Right nephrolithiasis. 2. Otherwise nonspecific abdomen. Assessment & Plan - Plan Summary Plan Summary: This is a 58-year-old female status post debridement of her right BKA stump. There is no further necrotic tissue. The dressing was taken down by me. Plan to initiate damp to dry dressing changes twice daily. Patient may require AKA if BKA stump does not heal. Will follow.
[2018-12-25 07:45] LABS: ABSOLUTE EOSINOPHILS # (AUTO) 1.4 10^3/uL (0.0-0.6); ABSOLUTE LYMPHOCYTES (AUTO) 0.9 10^3/uL (0.5-4.7); ABSOLUTE MONOCYTES (AUTO) 0.4 10^3/uL (0.1-1.4); ABSOLUTE NEUT (AUTO) 7.7 10^3/uL (1.7-8.2); BASOPHILS % (AUTO) 0.4 % (0-2); EOSINOPHILS % (AUTO) 13.4 % (0-6); HEMATOCRIT 28.2 % (36.0-47.0); HEMOGLOBIN 9.7 g/dL (12.0-15.5); MEAN CORPUSCULAR HEMOGLOBIN 28.8 pg (27.0-33.4); MEAN CORPUSCULAR HGB CONC 34.6 g/dL (32.0-36.0); MEAN CORPUSCULAR VOLUME 83 fl (80-97); MONOCYTES % (AUTO) 4.2 % (3-13); PLATELET COUNT 401 10^3/uL (150-450); RED BLOOD COUNT 3.39 10^6/uL (3.72-5.28); TOTAL CELLS COUNTED % (AUTO) 100 %; WHITE BLOOD COUNT 10.5 10^3/uL (4.0-10.5)
[2018-12-25 07:53] LABS: ANION GAP 14 (5-19); BLOOD UREA NITROGEN 5 mg/dL (7-20); CALCIUM 8.2 mg/dL (8.4-10.2); CARBON DIOXIDE 22 mmol/L (22-30); CHLORIDE 104 mmol/L (98-107); GLUCOSE 90 mg/dL (75-110); POTASSIUM 3.2 mmol/L (3.6-5.0); SODIUM 139.8 mmol/L (137-145)
[2018-12-25] MEDS: INSULIN LISPRO 100 UNIT/ML 3 ML VIAL SUBCUT SCH ×3 (08:29→17:11)
[2018-12-25] MEDS: CLOPIDOGREL BISULFATE 75 MG TABLET PO SCH (09:23)
[2018-12-25] MEDS: FUROSEMIDE 20 MG TABLET PO SCH (09:23)
[2018-12-25] MEDS: FAMOTIDINE 20 MG TABLET PO SCH ×2 (09:23→23:31)
[2018-12-25] MEDS: DOCUSATE SODIUM 100 MG CAPSULE PO SCH ×2 (09:23→17:11)
[2018-12-25] MEDS: METFORMIN HCL 500 MG TABLET PO SCH ×2 (09:23→17:10)
[2018-12-25] MEDS: FERROUS SULFATE 325 MG TABLET PO SCH ×2 (09:23→17:10)
[2018-12-25] MEDS: LISINOPRIL 5 MG TABLET PO SCH (09:23)
[2018-12-25] MEDS: POLYETHYLENE GLYCOL 3350 POWDER 17 GM/1 PACKET PO SCH (09:24)
[2018-12-25] MEDS: CARVEDILOL 12.5 MG TABLET PO SCH ×2 (09:24→23:38)
[2018-12-25] MEDS: FLUTICASONE/VILANTEROL 100-25 MCG/DOSE IH SCH (09:24)
[2018-12-25] MEDS: BUPROPION HCL 75 MG TABLET PO SCH ×2 (09:24→17:11)
[2018-12-25] MEDS: SITAGLIPTIN PHOSPHATE 50 MG TABLET PO SCH (09:24)
[2018-12-25] MEDS: MULTIVITAMINS W-IRON TABLET, CHEWABLE PO SCH (09:24)
[2018-12-25] MEDS: ENOXAPARIN SODIUM INJ 40 MG/0.4 ML DISP.SYRIN SUBCUT SCH (09:25)
[2018-12-25] MEDS: VANCOMYCIN HCL 500 MG in DEXTROSE 5%-WATER 100 ML IV SCH (09:26)
--- NOTE | 2018-12-25 10:17 | PDOC PROGRESS REPORT ---
Subjective Progress Note for:: 12/25/18 Reason For Visit: HYPERKALEMIA W T WAVE PEAK,R STUMP NECROSIS Physical Exam Vital Signs: Temp Pulse Resp BP Pulse Ox 98.9 F 94 14 117/57 L 98 12/25/18 07:44 12/25/18 09:00 12/25/18 09:00 12/25/18 07:44 12/25/18 09:00 Intake & Output 12/24/18 12/25/18 12/26/18 06:59 06:59 06:59 Intake Total 4150 1070 100 Output Total 1800 1275 Balance 2350 -205 100 Weight 56.7 kg 52.9 kg General appearance: PRESENT: mild distress Head exam: PRESENT: normocephalic Eye exam: PRESENT: EOMI Neck exam: PRESENT: full ROM Respiratory exam: PRESENT: clear to auscultation roderick Cardiovascular exam: PRESENT: RRR Pulses: PRESENT: other - weak 1+ femoral pulse rt, cannot palp popliteal pulse skin warm Vascular exam: PRESENT: normal capillary refill GI/Abdominal exam: PRESENT: soft Rectal exam: PRESENT: deferred Gentrourinary exam: PRESENT: other Extremities exam: PRESENT: full ROM Musculoskeletal exam: PRESENT: deformity Neurological exam: PRESENT: alert, oriented to person, oriented to place Psychiatric exam: PRESENT: agitated Results Laboratory Results: 12/25/18 07:08 12/25/18 07:08 12/24/18 12/24/18 12/24/18 09:25 21:45 23:06 WBC 11.5 H RBC 3.52 L Hgb 9.9 L Hct 29.9 L MCV 85 MCH 28.0 MCHC 33.0 RDW 15.6 H Plt Count 401 Seg Neutrophils % 70.1 Lymphocytes % 10.4 L Monocytes % 5.1 Eosinophils % 13.9 H Basophils % 0.5 Absolute Neutrophils 8.1 Absolute Lymphocytes 1.2 Absolute Monocytes 0.6 Absolute Eosinophils 1.6 H Absolute Basophils 0.1 Sodium Potassium Chloride Carbon Dioxide Anion Gap BUN Creatinine 0.78 Est GFR ( Amer) > 60 Est GFR (Non-Af Amer) > 60 Glucose Calcium Blood Type O POSITIVE Antibody Screen NEGATIVE 12/25/18 12/25/18 07:08 07:08 WBC 10.5 RBC 3.39 L Hgb 9.7 L Hct 28.2 L MCV 83 MCH 28.8 MCHC 34.6 RDW 16.0 H Plt Count 401 Seg Neutrophils % 73.0 Lymphocytes % 9.0 L Monocytes % 4.2 Eosinophils % 13.4 H Basophils % 0.4 Absolute Neutrophils 7.7 Absolute Lymphocytes 0.9 Absolute Monocytes 0.4 Absolute Eosinophils 1.4 H Absolute Basophils 0.0 Sodium 139.8 Potassium 3.2 L Chloride 104 Carbon Dioxide 22 Anion Gap 14 BUN 5 L Creatinine 0.72 Est GFR ( Amer) > 60 Est GFR (Non-Af Amer) > 60 Glucose 90 Calcium 8.2 L Blood Type Antibody Screen 12/23/18 17:00 Clean Catch Midstream Urine Culture - Final 2,000 col/ml 12/22/18 19:00 Knee - Below Knee Amputation Site Gram Stain - Final 12/22/18 19:00 Knee - Below Knee Amputation Site Wound Culture - Final Staphylococcus Aureus No Anaerobic Organisms 12/22/18 12/23/18 12/23/18 16:34 05:40 05:40 Creatine Kinase < 20 L < 20 L CK-MB (CK-2) < 0.22 Troponin I < 0.012 12/23/18 12/23/18 12/23/18 11:37 11:37 16:50 Creatine Kinase < 20 L < 20 L CK-MB (CK-2) < 0.22 Troponin I < 0.012 12/23/18 16:50 Creatine Kinase CK-MB (CK-2) < 0.22 Troponin I < 0.012 Impressions: Chest X-Ray 12/22/18 16:09 IMPRESSION: NO ACUTE FINDINGS. Tibia/Fibula X-Ray 12/22/18 16:10 IMPRESSION: Recent appearing right below-knee amputation without obvious e vidence of bony erosion or sclerosis to suggest osteomyelitis. Soft tissue swelling of the stump. Abdomen X-Ray 12/23/18 04:33 IMPRESSION: 1. Right nephrolithiasis. 2. Otherwise nonspecific abdomen. Assessment & Plan - Plan Summary Plan Summary: rt bka stump necrosis s/p drbridement now iwth fibrinous exutate undergoing dressing changes cont wet to dry will consider vac in a couple of days if it conts to improved otherwise may need aka
[2018-12-25] MEDS: TRAMADOL HCL 50 MG TABLET PO PRN ×3 (12:03→23:31)
[2018-12-25] MEDS ORDERED: POTASSIUM CHLORIDE 10 MEQ CAPSULE.ER PO ONE (14:38)
[2018-12-25] MEDS ORDERED: POTASSI CL 20 MEQ/50 ML RIDER 20 MEQ/50 ML RTUPB IV ONE (14:38)
[2018-12-25] MEDS: CLINDAMYCIN 600 MG/D5W RTU 600 MG/50 ML RTUPB IV SCH ×2 (14:41→23:31)
[2018-12-25] MEDS: POTASSI CL 20 MEQ/50 ML RIDER 20 MEQ/50 ML RTUPB IV SCH ×2 (14:56→14:57)
--- NOTE | 2018-12-25 21:15 | PDOC PROGRESS REPORT ---
Subjective Progress Note for:: 12/25/18 Subjective:: DUSTIN MALDONADO is a 58 year old female with past medical history of diabetes, hypertension, CVA without residual, peripheral neuropathy, dyslipidemia, COPD, iron deficiency anemia, anxiety, recurrent pyelonephritis and BKA November 09, 2018 who was admitted 12/22/2018 for sepsis secondary to right BKA surgical site infection. Patient was seen this morning on rounds, she is resting comfortably in bed on room. She is POD#2 debridement of her right stump. C&S from wound are resulted. (+) staph aureus. Will downgrade antibiotics from Vancomycin and zosyn to IV Clindamycin. Reason For Visit: HYPERKALEMIA W T WAVE PEAK,R STUMP NECROSIS Physical Exam Vital Signs: Temp Pulse Resp BP Pulse Ox 98.5 F 89 16 142/63 H 98 12/25/18 15:14 12/25/18 15:14 12/25/18 15:14 12/25/18 15:14 12/25/18 15:14 Intake & Output 12/24/18 12/25/18 12/26/18 06:59 06:59 06:59 Intake Total 4150 1070 1224 Output Total 1800 1275 775 Balance 2350 -205 449 Weight 56.7 kg 52.9 kg General appearance: PRESENT: no acute distress, well-developed, well-nourished Head exam: PRESENT: atraumatic, normocephalic Eye exam: PRESENT: conjunctiva pink, EOMI, PERRLA. ABSENT: scleral icterus Ear exam: PRESENT: normal external ear exam Mouth exam: PRESENT: moist, tongue midline Teeth exam: PRESENT: poor dentation Neck exam: ABSENT: carotid bruit, JVD, lymphadenopathy, thyromegaly Respiratory exam: PRESENT: clear to auscultation roderick, symmetrical, unlabored. A BSENT: rales, rhonchi, wheezes Cardiovascular exam: PRESENT: RRR. ABSENT: diastolic murmur, rubs, systolic murmur Pulses: PRESENT: normal radial pulses, normal dorsalis pedis pul - LLE only Vascular exam: PRESENT: normal capillary refill GI/Abdominal exam: PRESENT: normal bowel sounds, soft. ABSENT: distended, guarding, mass, organolmegaly, rebound, tenderness Rectal exam: PRESENT: deferred Extremities exam: PRESENT: full ROM. ABSENT: calf tenderness, clubbing, pedal edema Musculoskeletal exam: PRESENT: deformity - R BKA. ABSENT: ambulatory - uses wheelchair for ambulation Neurological exam: PRESENT: alert, awake, oriented to person, oriented to place, oriented to time, oriented to situation Psychiatric exam: PRESENT: appropriate affect, normal mood Skin exam: PRESENT: dry, intact, warm. ABSENT: cyanosis, rash Results Laboratory Results: 12/25/18 07:08 12/25/18 07:08 12/24/18 12/24/18 12/25/18 21:45 23:06 07:08 WBC 11.5 H 10.5 RBC 3.52 L 3.39 L Hgb 9.9 L 9.7 L Hct 29.9 L 28.2 L MCV 85 83 MCH 28.0 28.8 MCHC 33.0 34.6 RDW 15.6 H 16.0 H Plt Count 401 401 Seg Neutrophils % 70.1 73.0 Lymphocytes % 10.4 L 9.0 L Monocytes % 5.1 4.2 Eosinophils % 13.9 H 13.4 H Basophils % 0.5 0.4 Absolute Neutrophils 8.1 7.7 Absolute Lymphocytes 1.2 0.9 Absolute Monocytes 0.6 0.4 Absolute Eosinophils 1.6 H 1.4 H Absolute Basophils 0.1 0.0 Sodium Potassium Chloride Carbon Dioxide Anion Gap BUN Creatinine 0.78 Est GFR ( Amer) > 60 Est GFR (Non-Af Amer) > 60 Glucose Calcium 12/25/18 07:08 WBC RBC Hgb Hct MCV MCH MCHC RDW Plt Count Seg Neutrophils % Lymphocytes % Monocytes % Eosinophils % Basophils % Absolute Neutrophils Absolute Lymphocytes Absolute Monocytes Absolute Eosinophils Absolute Basophils Sodium 139.8 Potassium 3.2 L Chloride 104 Carbon Dioxide 22 Anion Gap 14 BUN 5 L Creatinine 0.72 Est GFR ( Amer) > 60 Est GFR (Non-Af Amer) > 60 Glucose 90 Calcium 8.2 L 12/23/18 17:00 Clean Catch Midstream Urine Culture - Final 2,000 col/ml 12/22/18 12/23/18 12/23/18 16:34 05:40 05:40 Creatine Kinase < 20 L < 20 L CK-MB (CK-2) < 0.22 Troponin I < 0.012 12/23/18 12/23/18 12/23/18 11:37 11:37 16:50 Creatine Kinase < 20 L < 20 L CK-MB (CK-2) < 0.22 Troponin I < 0.012 12/23/18 16:50 Creatine Kinase CK-MB (CK-2) < 0.22 Troponin I < 0.012 Impressions: Chest X-Ray 12/22/18 16:09 IMPRESSION: NO ACUTE FINDINGS. Tibia/Fibula X-Ray 12/22/18 16:10 IMPRESSION: Recent appearing right below-knee amputation without obvious evidence of bony erosion or sclerosis to suggest osteomyelitis. Soft tissue swelling of the stump. Abdomen X-Ray 12/23/18 04:33 IMPRESSION: 1. Right nephrolithiasis. 2. Otherwise nonspecific abdomen. Status: Imported from PACS Assessment and Plan - Diagnosis (1) Infection of right below knee amputation Is this a current diagnosis for this admission?: Yes Plan: Blood cultures are pending. Wound culture positive for staph aureus. Patient was empirically placed on IV vancomycin and Zosyn. Wound C&S (+) Staph aureus, switch to clindamycin POD#2 R stump debridement. Wound care per their expertise. Patient's amputation was very recent, only 1 month ago, and she is already having difficulty with wound healing. Will require close follow up with wound care clinic. (2) Diabetes Qualifiers: Diabetes mellitus type: type 2 Diabetes mellitus [employer] insulin use: with [facility] use Is this a current diagnosis for this admission?: Yes Plan: Accu-Cheks every 6 hours with Humalog sliding scale coverage. 1/2 dose home dose lantus Hypoglycemia protocol. Advance to consistent carb diet once cleared by surgery. Registered dietitian and in service educator consulted. (3) Hyperkalemia Is this a current diagnosis for this admission?: Yes Plan: Resolved. Potassium of 6.0 on admission; without peak T waves Patient is received insulin, albuterol, calcium carbonate, lactulose. We will continue to monitor with daily chemistries. (4) Osteomyelitis Is this a current diagnosis for this admission?: Yes Plan: As above. (5) Iron deficiency anemia Qualifiers: Iron deficiency anemia type: unspecified iron deficiency Qualified Code(s): D50.9 - Iron deficiency anemia, unspecified Is this a current diagnosis for this admission?: Yes Plan: Multifactorial to include chronic disease acute inflammation Daily multivitamin and ferrous sulfate supplementation. Registered dietitian is consulted. (6) Severe sepsis Is this a current diagnosis for this admission?: Yes Plan: Secondary to stump necrosis versus UTI (leuk esterase & WBC) Blood culture pending. Wound culture with staph aureus. Urine culture pending. Patient is treated with IV clindamycin for wound infection. PO Macrobid for UTI. (7) UTI (urinary tract infection) Is this a current diagnosis for this admission?: Yes Plan: Urinalysis positive for UTI (leuk esterase & >182 WBC) Urine culture negative Will continue on PO Macrobid; adjust as cultures result. - Time Time Spent with patient: 15-24 minutes Medications reviewed and adjusted accordingly: Yes Anticipated discharge: Home Within: Other - when medically stable - Inpatient Certification Based on my medical assessment, after consideration of the patient's comorbidities, presenting symptoms, or acuity I expect that the services needed warrant INPATIENT care.: Yes I certify that my determination is in accordance with my understanding of Medicare's requirements for reasonable and necessary INPATIENT services [42 CFR 412.3e].: Yes Medical Necessity: Need for IV Antibiotics
[2018-12-25] MEDS: MELATONIN 5 MG TABLET PO SCH (23:32)
[2018-12-25] MEDS: NITROFURANTOIN MONOHYD/M-CRYST 100 MG CAPSULE PO SCH (23:32)
[2018-12-25] MEDS: INSULIN GLARGINE,HUM.REC.ANLOG 1,000 UNIT/10 ML VIAL SUBCUT SCH (23:32)
[2018-12-25] MEDS: MONTELUKAST SODIUM 10 MG TABLET PO SCH (23:38)
[2018-12-26] MEDS: HYDROCODONE/ACETAMINOPHEN 5-325 MG TABLET PO PRN ×4 (00:38→22:47)
[2018-12-26] MEDS: LACTULOSE SYRUP 20 GM/30 ML UDCUP PR SCH ×2 (05:24→17:44)
[2018-12-26] MEDS: GABAPENTIN 300 MG CAPSULE PO SCH ×3 (05:25→22:44)
[2018-12-26] MEDS: CLINDAMYCIN 600 MG/D5W RTU 600 MG/50 ML RTUPB IV SCH ×3 (05:25→22:45)
[2018-12-26] MEDS: INSULIN LISPRO 100 UNIT/ML 3 ML VIAL SUBCUT SCH ×3 (08:17→16:43)
[2018-12-26] MEDS: METFORMIN HCL 500 MG TABLET PO SCH ×2 (08:19→16:46)
[2018-12-26] MEDS: FERROUS SULFATE 325 MG TABLET PO SCH ×2 (08:19→17:48)
--- NOTE | 2018-12-26 09:09 | PDOC PROGRESS REPORT ---
Subjective Progress Note for:: 12/26/18 Reason For Visit: HYPERKALEMIA W T WAVE PEAK,R STUMP NECROSIS Patient says she feels a little better. Physical Exam Vital Signs: Temp Pulse Resp BP Pulse Ox 97.8 F 91 20 153/79 H 97 12/26/18 08:09 12/26/18 08:09 12/26/18 08:09 12/26/18 08:09 12/26/18 08:09 Intake & Output 12/25/18 12/26/18 12/27/18 06:59 06:59 06:59 Intake Total 1070 1324 Output Total 1275 950 Balance -205 374 Weight 52.9 kg 54 kg General appearance: PRESENT: no acute distress, other - Patient calm down after gentle conversation Extremities exam: PRESENT: other - Right BKA stump exposed. No foul smell; no soupy drainage only watery discharge; some desiccated areas of subcutaneous tissue; no further necrosis of skin Results Laboratory Results: 12/25/18 07:08 12/25/18 07:08 12/23/18 22:21 Knee - Below Knee Amputation Site Gram Stain - Final 12/23/18 17:00 Clean Catch Midstream Urine Culture - Final 2,000 col/ml 12/22/18 12/23/18 12/23/18 16:34 05:40 05:40 Creatine Kinase < 20 L < 20 L CK-MB (CK-2) < 0.22 Troponin I < 0.012 12/23/18 12/23/18 12/23/18 11:37 11:37 16:50 Creatine Kinase < 20 L < 20 L CK-MB (CK-2) < 0.22 Troponin I < 0.012 12/23/18 16:50 Creatine Kinase CK-MB (CK-2) < 0.22 Troponin I < 0.012 Impressions: Chest X-Ray 12/22/18 16:09 IMPRESSION: NO ACUTE FINDINGS. Tibia/Fibula X-Ray 12/22/18 16:10 IMPRESSION: Recent appearing right below-knee amputation without obvious evidence of bony erosion or sclerosis to suggest osteomyelitis. Soft tissue swelling of the stump. Abdomen X-Ray 12/23/18 04:33 IMPRESSION: 1. Right nephrolithiasis. 2. Otherwise nonspecific abdomen. Assessment & Plan - Diagnosis (1) Infection of right below knee amputation Is this a current diagnosis for this admission?: Yes Plan: Impression: Right BKA stump cleaned up marginally with some desiccated subcutaneous tissue and fascia; sepsis source appears reasonably controlled. Patient on clindamycin for MRSA deep soft tissue infection in this well- nourished, and deconditioned female peripheral vascular disease and diabetes mellitus. Recommendations: 1. Continue local wound care with twice daily chlorhexidine scrubbing's, and Accuzyme 2. On further inquiry, patient has not ambulated in a long time, is weak, and it is unlikely to support a prosthesis. Therefore efforts to salvage this below the knee amputation may be less than constructive, and we may need to recommend AKA
[2018-12-26] MEDS: NITROFURANTOIN MONOHYD/M-CRYST 100 MG CAPSULE PO SCH ×2 (09:42→22:46)
[2018-12-26] MEDS: FAMOTIDINE 20 MG TABLET PO SCH ×2 (09:43→22:44)
[2018-12-26] MEDS: LISINOPRIL 5 MG TABLET PO SCH (09:43)
[2018-12-26] MEDS: MULTIVITAMINS W-IRON TABLET, CHEWABLE PO SCH (09:45)
[2018-12-26] MEDS: ENOXAPARIN SODIUM INJ 40 MG/0.4 ML DISP.SYRIN SUBCUT SCH (09:45)
[2018-12-26] MEDS: CARVEDILOL 12.5 MG TABLET PO SCH ×2 (09:46→22:44)
[2018-12-26] MEDS: DOCUSATE SODIUM 100 MG CAPSULE PO SCH ×2 (09:47→17:44)
[2018-12-26] MEDS: FUROSEMIDE 20 MG TABLET PO SCH (09:47)
[2018-12-26] MEDS: POLYETHYLENE GLYCOL 3350 POWDER 17 GM/1 PACKET PO SCH (09:47)
[2018-12-26] MEDS: SITAGLIPTIN PHOSPHATE 50 MG TABLET PO SCH (09:47)
[2018-12-26] MEDS: CLOPIDOGREL BISULFATE 75 MG TABLET PO SCH (09:48)
[2018-12-26] MEDS: BUPROPION HCL 75 MG TABLET PO SCH ×2 (09:58→17:48)
[2018-12-26] MEDS ORDERED: COLLAGENASE CLOSTRIDIUM HIST. OINT 30 GM TP SCH (10:00)
[2018-12-26] MEDS: FLUTICASONE/VILANTEROL 100-25 MCG/DOSE IH SCH (10:03)
[2018-12-26] MEDS: BUSPIRONE HCL 10 MG TABLET PO PRN ×2 (15:05→23:05)
[2018-12-26] MEDS: COLLAGENASE CLOSTRIDIUM HIST. OINT 30 GM TP SCH ×2 (15:30→22:47)
--- NOTE | 2018-12-26 16:47 | PDOC PROGRESS REPORT ---
Subjective Progress Note for:: 12/26/18 Subjective:: DUSTIN MALDONADO is a 58 year old female with past medical history of diabetes, hypertension, CVA without residual, peripheral neuropathy, dyslipidemia, COPD, iron deficiency anemia, anxiety, recurrent pyelonephritis and BKA November 09, 2018 who was admitted 12/22/2018 for sepsis secondary to right BKA surgical site infection. Patient was seen this morning on rounds, she is resting comfortably in bed on room. She is POD#3 debridement of her right stump. Dr. Diego ordered more aggressive measures to be taken to keep the wound clean - CHG scrub and Santyl ointment. Patient complains of significant diarrhea that started yesterday. She states it was liquid and she intermittently was incontinent of stool. Plan to test stool for CDIFF, WBC and culture Reason For Visit: HYPERKALEMIA W T WAVE PEAK,R STUMP NECROSIS Physical Exam Vital Signs: Temp Pulse Resp BP Pulse Ox 97.9 F 90 16 132/67 H 99 12/26/18 12:09 12/26/18 12:09 12/26/18 12:09 12/26/18 12:09 12/26/18 12:09 Intake & Output 12/25/18 12/26/18 12/27/18 06:59 06:59 06:59 Intake Total 1070 1324 355 Output Total 1275 950 350 Balance -205 374 5 Weight 52.9 kg 54 kg General appearance: PRESENT: well-developed, well-nourished Eye exam: PRESENT: PERRLA Mouth exam: PRESENT: moist, tongue midline Teeth exam: PRESENT: poor dentation Neck exam: PRESENT: full ROM Respiratory exam: PRESENT: clear to auscultation roderick, symmetrical, unlabored Cardiovascular exam: PRESENT: RRR Pulses: PRESENT: normal radial pulses, normal dorsalis pedis pul - LLE only Vascular exam: PRESENT: normal capillary refill GI/Abdominal exam: PRESENT: normal bowel sounds, soft. ABSENT: distended, tenderness Rectal exam: PRESENT: deferred Extremities exam: PRESENT: full ROM - R BKA. ABSENT: pedal edema Musculoskeletal exam: PRESENT: deformity - r bka, full ROM. ABSENT: ambulatory Neurological exam: PRESENT: alert, awake, oriented to person, oriented to place, oriented to time, oriented to situation Psychiatric exam: PRESENT: appropriate affect Skin exam: PRESENT: dry, intact, normal color, other - R STUMP WOUND IS WRAPPED WITH KERLIX AND MOHAMUD BANDAGE Results Laboratory Results: 12/25/18 07:08 12/25/18 07:08 12/22/18 19:00 Knee - Below Knee Amputation Site Gram Stain - Final 12/22/18 19:00 Knee - Below Knee Amputation Site Wound Culture - Final Staphylococcus Aureus No Anaerobic Organisms 12/23/18 22:21 Knee - Below Knee Amputation Site Gram Stain - Final 12/23/18 17:00 Clean Catch Midstream Urine Culture - Final 2,000 col/ml 12/22/18 12/23/18 12/23/18 16:34 05:40 05:40 Creatine Kinase < 20 L < 20 L CK-MB (CK-2) < 0.22 Troponin I < 0.012 12/23/18 12/23/18 12/23/18 11:37 11:37 16:50 Creatine Kinase < 20 L < 20 L CK-MB (CK-2) < 0.22 Troponin I < 0.012 12/23/18 16:50 Creatine Kinase CK-MB (CK-2) < 0.22 Troponin I < 0.012 Impressions: Chest X-Ray 12/22/18 16:09 IMPRESSION: NO ACUTE FINDINGS. Tibia/Fibula X-Ray 12/22/18 16:10 IMPRESSION: Recent appearing right below-knee amputation without obvious eviden ce of bony erosion or sclerosis to suggest osteomyelitis. Soft tissue swelling of the stump. Abdomen X-Ray 12/23/18 04:33 IMPRESSION: 1. Right nephrolithiasis. 2. Otherwise nonspecific abdomen. Status: Imported from PACS Assessment and Plan - Diagnosis (1) Infection of right below knee amputation Is this a current diagnosis for this admission?: Yes Plan: Blood cultures are pending. Wound culture positive for staph aureus. Patient was empirically placed on IV vancomycin and Zosyn. Wound C&S (+) Staph aureus, continue clindamycin based on results POD#3 R stump debridement. Wound care per their expertise. Patient's amputation was very recent, only 1 month ago, and she is already having difficulty with wound healing. Will require close follow up with wound care clinic. (2) Diabetes Qualifiers: Diabetes mellitus type: type 2 Diabetes mellitus retirement insulin use: with retirement use Is this a current diagnosis for this admission?: Yes Plan: H DM type 2, well controlled Accu-Cheks every 6 hours with Humalog sliding scale coverage. 1/2 dose home dose lantus Hypoglycemia protocol. Consistent carb diet. Registered dietitian and special educator consulted. Check HgbA1c in AM (3) Hyperkalemia Is this a current diagnosis for this admission?: Yes Plan: Resolved. Potassium of 6.0 on admission; without peak T waves Patient is received insulin, albuterol, calcium carbonate, lactulose. We will continue to monitor with daily chemistries. (4) Osteomyelitis Is this a current diagnosis for this admission?: Yes Plan: As above. (5) Iron deficiency anemia Qualifiers: Iron deficiency anemia type: unspecified iron deficiency Qualified Code(s): D50.9 - Iron deficiency anemia, unspecified Is this a current diagnosis for this admission?: Yes Plan: Multifactorial to include chronic disease acute inflammation Daily multivitamin and ferrous sulfate supplementation. Registered dietitian is consulted. (6) Severe sepsis Is this a current diagnosis for this admission?: Yes Plan: Resolved Secondary to stump necrosis versus UTI (leuk esterase & WBC) Blood culture pending. Wound culture with staph aureus. Urine culture pending. Patient is treated with IV clindamycin for wound infection. PO Macrobid for UTI. (7) UTI (urinary tract infection) Is this a current diagnosis for this admission?: Yes Plan: Urinalysis positive for UTI (leuk esterase & >182 WBC) Urine culture negative Will continue on 7 day course of PO Macrobid - Time Time Spent with patient: 15-24 minutes Medications reviewed and adjusted accordingly: Yes Anticipated discharge: Home with Homehealth, SNF Within: within 72 hours - Inpatient Certification Based on my medical assessment, after consideration of the patient's comorbidities, presenting symptoms, or acuity I expect that the services needed warrant INPATIENT care.: Yes I certify that my determination is in accordance with my understanding of Medicare's requirements for reasonable and necessary INPATIENT services [42 CFR 412.3e].: Yes Medical Necessity: Need for IV Antibiotics, Risk of Complication if Not Cared For in Hospital
[2018-12-26] MEDS: MONTELUKAST SODIUM 10 MG TABLET PO SCH (22:44)
[2018-12-26] MEDS: INSULIN GLARGINE,HUM.REC.ANLOG 1,000 UNIT/10 ML VIAL SUBCUT SCH (22:44)
[2018-12-26] MEDS: MELATONIN 5 MG TABLET PO SCH (22:53)
[2018-12-27] MEDS: MORPHINE SULFATE 10 MG/ML INJ IV PRN ×3 (04:10→20:23)
[2018-12-27] MEDS: CLINDAMYCIN 600 MG/D5W RTU 600 MG/50 ML RTUPB IV SCH ×2 (05:28→14:08)
[2018-12-27] MEDS: LACTULOSE SYRUP 20 GM/30 ML UDCUP PR SCH ×2 (05:29→18:12)
[2018-12-27] MEDS: GABAPENTIN 300 MG CAPSULE PO SCH ×3 (05:29→21:51)
[2018-12-27 06:35] LABS: HEMATOCRIT 31.9 % (36.0-47.0); HEMOGLOBIN 10.9 g/dL (12.0-15.5); MEAN CORPUSCULAR HEMOGLOBIN 28.2 pg (27.0-33.4); MEAN CORPUSCULAR HGB CONC 34.1 g/dL (32.0-36.0); MEAN CORPUSCULAR VOLUME 83 fl (80-97); PLATELET COUNT 426 10^3/uL (150-450); RED BLOOD COUNT 3.86 10^6/uL (3.72-5.28); RED CELL DISTRIBUTION WIDTH 15.7 % (11.5-14.0); WHITE BLOOD COUNT 9.7 10^3/uL (4.0-10.5)
[2018-12-27 06:55] LABS: ALANINE AMINOTRANSFERASE 14 U/L (9-52); ALBUMIN 3.3 g/dL (3.5-5.0); ALKALINE PHOSPHATASE 80 U/L (38-126); ANION GAP 13 (5-19); ASPARTATE AMINO TRANSFERASE 10 U/L (14-36); BILIRUBIN,DIRECT 0.4 mg/dL (0.0-0.4); BILIRUBIN,TOTAL 0.4 mg/dL (0.2-1.3); BLOOD UREA NITROGEN 8 mg/dL (7-20); CARBON DIOXIDE 23 mmol/L (22-30); CHLORIDE 100 mmol/L (98-107); GLUCOSE 88 mg/dL (75-110); PHOSPHORUS 4.2 mg/dL (2.5-4.5); POTASSIUM 3.4 mmol/L (3.6-5.0); SODIUM 135.7 mmol/L (137-145); TOTAL PROTEIN 7.2 g/dL (6.3-8.2)
[2018-12-27] MEDS: INSULIN LISPRO 100 UNIT/ML 3 ML VIAL SUBCUT SCH ×3 (07:40→17:02)
[2018-12-27] MEDS: FERROUS SULFATE 325 MG TABLET PO SCH ×2 (08:02→18:14)
[2018-12-27] MEDS: HYDROCODONE/ACETAMINOPHEN 5-325 MG TABLET PO PRN ×2 (08:03→17:10)
[2018-12-27] MEDS: METFORMIN HCL 500 MG TABLET PO SCH ×2 (08:03→17:05)
[2018-12-27] MEDS: NITROFURANTOIN MONOHYD/M-CRYST 100 MG CAPSULE PO SCH ×2 (09:18→21:51)
[2018-12-27] MEDS: CARVEDILOL 12.5 MG TABLET PO SCH ×2 (09:19→21:51)
[2018-12-27] MEDS: CLOPIDOGREL BISULFATE 75 MG TABLET PO SCH (09:19)
[2018-12-27] MEDS: BUPROPION HCL 75 MG TABLET PO SCH ×2 (09:20→18:14)
[2018-12-27] MEDS: MULTIVITAMINS W-IRON TABLET, CHEWABLE PO SCH (09:20)
[2018-12-27] MEDS: FUROSEMIDE 20 MG TABLET PO SCH (09:20)
[2018-12-27] MEDS: LISINOPRIL 5 MG TABLET PO SCH (09:20)
[2018-12-27] MEDS: SITAGLIPTIN PHOSPHATE 50 MG TABLET PO SCH (09:20)
[2018-12-27] MEDS: FAMOTIDINE 20 MG TABLET PO SCH ×2 (09:20→21:51)
[2018-12-27] MEDS: FLUTICASONE/VILANTEROL 100-25 MCG/DOSE IH SCH (09:21)
--- NOTE | 2018-12-27 09:23 | PDOC PROGRESS REPORT ---
Subjective Progress Note for:: 12/27/18 Reason For Visit: HYPERKALEMIA W T WAVE PEAK,R STUMP NECROSIS Physical Exam Vital Signs: Temp Pulse Resp BP Pulse Ox 98.0 F 93 16 145/74 H 98 12/27/18 08:14 12/27/18 08:14 12/27/18 08:14 12/27/18 08:14 12/27/18 08:14 Intake & Output 12/26/18 12/27/18 12/28/18 06:59 06:59 06:59 Intake Total 1324 1140 50 Output Total 950 700 Balance 374 440 50 Weight 54 kg 53.8 kg General appearance: PRESENT: no acute distress Head exam: PRESENT: normocephalic Eye exam: PRESENT: EOMI Mouth exam: PRESENT: moist Neck exam: PRESENT: full ROM Respiratory exam: PRESENT: clear to auscultation roderick Cardiovascular exam: PRESENT: RRR Pulses: PRESENT: other - weak pop pulse on rt. Vascular exam: PRESENT: normal capillary refill GI/Abdominal exam: PRESENT: soft Rectal exam: PRESENT: deferred Extremities exam: PRESENT: other - rt bka stump iwth continured necrosis Neurological exam: PRESENT: alert, awake, oriented to person, oriented to place Psychiatric exam: PRESENT: appropriate affect Results Laboratory Results: 12/27/18 05:59 12/27/18 05:59 12/26/18 12/27/18 12/27/18 15:28 05:59 05:59 WBC 9.7 RBC 3.86 Hgb 10.9 L Hct 31.9 L MCV 83 MCH 28.2 MCHC 34.1 RDW 15.7 H Plt Count 426 Sodium 135.7 L Potassium 3.4 L Chloride 100 Carbon Dioxide 23 Anion Gap 13 BUN 8 Creatinine 0.69 Est GFR ( Amer) > 60 Est GFR (Non-Af Amer) > 60 Glucose 88 Calcium 9.0 Phosphorus 4.2 Magnesium 0.9 L* Total Bilirubin 0.4 AST 10 L ALT 14 Alkaline Phosphatase 80 Total Protein 7.2 Albumin 3.3 L Stool for White Cells NO WBCs SEEN 12/23/18 22:21 Knee - Below Knee Amputation Site Gram Stain - Final 12/22/18 19:00 Knee - Below Knee Amputation Site Gram Stain - Final 12/22/18 19:00 Knee - Below Knee Amputation Site Wound Culture - Final Staphylococcus Aureus No Anaerobic Organisms 12/22/18 12/23/18 12/23/18 16:34 05:40 05:40 Creatine Kinase < 20 L < 20 L CK-MB (CK-2) < 0.22 Troponin I < 0.012 12/23/18 12/23/18 12/23/18 11:37 11:37 16:50 Creatine Kinase < 20 L < 20 L CK-MB (CK-2) < 0.22 Troponin I < 0.012 12/23/18 16:50 Creatine Kinase CK-MB (CK-2) < 0.22 Troponin I < 0.012 Impressions: Chest X-Ray 12/22/18 16:09 IMPRESSION: NO ACUTE FINDINGS. Tibia/Fibula X-Ray 12/22/18 16:10 IMPRESSION: Recent appearing right below-knee amputation without obvious evidence of bony erosion or sclerosis to suggest osteomyelitis. Soft tissue swelling of the stump. Abdomen X-Ray 12/23/18 04:33 IMPRESSION: 1. Right nephrolithiasis. 2. Otherwise nonspecific abdomen. Assessment & Plan - Plan Summary Plan Summary: rt stump looks worse started santil yesterdy pt now more amenable to rt aka she will discuss with family today and let me know.
[2018-12-27] MEDS: POTASSI CL 20 MEQ/50 ML RIDER 20 MEQ/50 ML RTUPB IV SCH ×2 (09:24→11:31)
[2018-12-27] MEDS: COLLAGENASE CLOSTRIDIUM HIST. OINT 30 GM TP SCH ×2 (09:27→21:52)
[2018-12-27] MEDS: ENOXAPARIN SODIUM INJ 40 MG/0.4 ML DISP.SYRIN SUBCUT SCH (09:28)
[2018-12-27] MEDS: POLYETHYLENE GLYCOL 3350 POWDER 17 GM/1 PACKET PO SCH (09:28)
[2018-12-27] MEDS: DOCUSATE SODIUM 100 MG CAPSULE PO SCH ×2 (09:28→18:12)
[2018-12-27] MEDS ORDERED: MAGNESIUM SULFATE 4 GM/100 ML RTUPB IV ONE (09:30)
[2018-12-27] MEDS: KETOROLAC TROMETHAMINE INJ/PF 30 MG/1 ML SDV IV PRN (09:47)
--- NOTE | 2018-12-27 17:03 | PDOC PROGRESS REPORT ---
Subjective Progress Note for:: 12/27/18 Subjective:: DUSTIN MALDONADO is a 58 year old female with past medical history of diabetes, hypertension, CVA without residual, peripheral neuropathy, dyslipidemia, COPD, iron deficiency anemia, anxiety, recurrent pyelonephritis and BKA November 09, 2018 who was admitted 12/22/2018 for sepsis secondary to right BKA surgical site infection. Patient was seen this morning on rounds, she is resting comfortably in bed on room. She is POD#4 debridement of her right stump. Dr. Morin states the stump wound looks worse. Plan for AKA. Patient states she needs to discuss with her family. Reason For Visit: HYPERKALEMIA W T WAVE PEAK,R STUMP NECROSIS Physical Exam Vital Signs: Temp Pulse Resp BP Pulse Ox 98.4 F 86 18 142/68 H 98 12/27/18 11:41 12/27/18 14:00 12/27/18 11:41 12/27/18 11:41 12/27/18 11:41 Intake & Output 12/26/18 12/27/18 12/28/18 06:59 06:59 06:59 Intake Total 1324 1140 300 Output Total 950 700 Balance 374 440 300 Weight 54 kg 53.8 kg General appearance: PRESENT: thin Eye exam: PRESENT: PERRLA Mouth exam: PRESENT: tongue midline Teeth exam: PRESENT: poor dentation Neck exam: PRESENT: full ROM Respiratory exam: PRESENT: clear to auscultation roderick, symmetrical, unlabored Cardiovascular exam: PRESENT: RRR Pulses: PRESENT: normal radial pulses GI/Abdominal exam: PRESENT: soft. ABSENT: distended, tenderness Rectal exam: PRESENT: deferred Extremities exam: PRESENT: full ROM. ABSENT: pedal edema Musculoskeletal exam: PRESENT: full ROM. ABSENT: ambulatory - wheelchair Neurological exam: PRESENT: alert, awake, oriented to person, oriented to place, oriented to time, oriented to situation Psychiatric exam: PRESENT: appropriate affect Skin exam: PRESENT: dry, intact, normal color Results Laboratory Results: 12/27/18 05:59 12/27/18 05:59 12/26/18 12/27/18 12/27/18 15:28 05:59 05:59 WBC 9.7 RBC 3.86 Hgb 10.9 L Hct 31.9 L MCV 83 MCH 28.2 MCHC 34.1 RDW 15.7 H Plt Count 426 Sodium 135.7 L Potassium 3.4 L Chloride 100 Carbon Dioxide 23 Anion Gap 13 BUN 8 Creatinine 0.69 Est GFR ( Amer) > 60 Est GFR (Non-Af Amer) > 60 Glucose 88 Calcium 9.0 Phosphorus 4.2 Magnesium 0.9 L* Total Bilirubin 0.4 AST 10 L ALT 14 Alkaline Phosphatase 80 Total Protein 7.2 Albumin 3.3 L Stool for White Cells NO WBCs SEEN 12/22/18 16:34 Blood Blood Culture - Final NO GROWTH IN 5 DAYS 12/22/18 19:00 Knee - Below Knee Amputation Site Gram Stain - Final 12/22/18 19:00 Knee - Below Knee Amputation Site Wound Culture - Final Staphylococcus Aureus Mrsa (Meth Resis Staph Aureus) No Anaerobic Organisms 12/23/18 22:21 Knee - Below Knee Amputation Site Gram Stain - Final 12/22/18 12/23/18 12/23/18 16:34 05:40 05:40 Creatine Kinase < 20 L < 20 L CK-MB (CK-2) < 0.22 Troponin I < 0.012 12/23/18 12/23/18 12/23/18 11:37 11:37 16:50 Creatine Kinase < 20 L < 20 L CK-MB (CK-2) < 0.22 Troponin I < 0.012 12/23/18 16:50 Creatine Kinase CK-MB (CK-2) < 0.22 Troponin I < 0.012 Impressions: Chest X-Ray 12/22/18 16:09 IMPRESSION: NO ACUTE FINDINGS. Tibia/Fibula X-Ray 12/22/18 16:10 IMPRESSION: Recent appearing right below-knee amputation without obvious evidence of bony erosion or sclerosis to suggest osteomyelitis. Soft tissue swelling of the stump. Abdomen X-Ray 12/23/18 04:33 IMPRESSION: 1. Right nephrolithiasis. 2. Otherwise nonspecific abdomen. Status: Imported from PACS Assessment and Plan - Diagnosis (1) Infection of right below knee amputation Is this a current diagnosis for this admission?: Yes Plan: Blood cultures are pending. Wound culture positive for MRSA and E.coli Patient was empirically placed on IV vancomycin and Zosyn. Wound C&S (+) MRSA, continue vancomycin. Treat E.coli with cipro based on results POD#4 R stump debridement. Wound care per their expertise. Patient's amputation was very recent, only 1 month ago, and she is already having difficulty with wound healing. Will require close follow up with wound care clinic. (2) Diabetes Qualifiers: Diabetes mellitus type: type 2 Diabetes mellitus chcf insulin use: with chcf use Is this a current diagnosis for this admission?: Yes Plan: PMH DM type 2, well controlled Accu-Cheks every 6 hours with Humalog sliding scale coverage. 1/2 dose home dose lantus Hypoglycemia protocol. Consistent carb diet. Registered dietitian and cosmetology educator consulted. HgbA1c 6.1 (3) Hyperkalemia Is this a current diagnosis for this admission?: Yes Plan: Resolved. Potassium of 6.0 on admission; without peak T waves Patient is received insulin, albuterol, calcium carbonate, lactulose. We will continue to monitor with daily chemistries. (4) Osteomyelitis Is this a current diagnosis for this admission?: Yes Plan: As above. (5) Iron deficiency anemia Qualifiers: Iron deficiency anemia type: unspecified iron deficiency Qualified Code(s): D50.9 - Iron deficiency anemia, unspecified Is this a current diagnosis for this admission?: Yes Plan: Multifactorial to include chronic disease acute inflammation Daily multivitamin and ferrous sulfate supplementation. Registered dietitian is consulted. (6) Severe sepsis Is this a current diagnosis for this admission?: Yes Plan: Resolved Secondary to stump necrosis versus UTI (leuk esterase & WBC) Blood culture negative at 4 days Wound culture (+) MRSA and e.coli Urine culture pending. Patient is treated with IV vancomycin and cipro for wound infection. PO Macrobid for UTI. (7) UTI (urinary tract infection) Is this a current diagnosis for this admission?: Yes Plan: Urinalysis positive for UTI (leuk esterase & >182 WBC) Urine culture negative Day 3 of 7 day course of PO Macrobid - Time Time Spent with patient: 15-24 minutes Medications reviewed and adjusted accordingly: Yes Anticipated discharge: Home - Inpatient Certification Based on my medical assessment, after consideration of the patient's comorbidities, presenting symptoms, or acuity I expect that the services needed warrant INPATIENT care.: Yes I certify that my determination is in accordance with my understanding of Medicare's requirements for reasonable and necessary INPATIENT services [42 CFR 412.3e].: Yes
[2018-12-27] MEDS: CIPROFLOXACIN 400 MG/D5W RTU 400 MG/200 ML RTUPB IV SCH (21:50)
[2018-12-27] MEDS: MONTELUKAST SODIUM 10 MG TABLET PO SCH (21:51)
[2018-12-27] MEDS: MELATONIN 5 MG TABLET PO SCH (21:52)
[2018-12-27] MEDS: INSULIN GLARGINE,HUM.REC.ANLOG 1,000 UNIT/10 ML VIAL SUBCUT SCH (21:54)
[2018-12-28] MEDS: MORPHINE SULFATE 10 MG/ML INJ IV PRN ×6 (01:58→23:16)
[2018-12-28] MEDS: LACTULOSE SYRUP 20 GM/30 ML UDCUP PR SCH ×2 (05:12→17:14)
[2018-12-28] MEDS: GABAPENTIN 300 MG CAPSULE PO SCH ×3 (05:14→22:02)
[2018-12-28 05:53] LABS: HEMATOCRIT 31.9 % (36.0-47.0); HEMOGLOBIN 10.8 g/dL (12.0-15.5); MEAN CORPUSCULAR VOLUME 82 fl (80-97); PLATELET COUNT 400 10^3/uL (150-450); RED BLOOD COUNT 3.86 10^6/uL (3.72-5.28); RED CELL DISTRIBUTION WIDTH 15.7 % (11.5-14.0); WHITE BLOOD COUNT 9.4 10^3/uL (4.0-10.5)
[2018-12-28 06:18] LABS: ALANINE AMINOTRANSFERASE 17 U/L (9-52); ALBUMIN 3.2 g/dL (3.5-5.0); ALKALINE PHOSPHATASE 91 U/L (38-126); ANION GAP 11 (5-19); ASPARTATE AMINO TRANSFERASE 10 U/L (14-36); BILIRUBIN,DIRECT 0.4 mg/dL (0.0-0.4); BILIRUBIN,TOTAL 0.5 mg/dL (0.2-1.3); BLOOD UREA NITROGEN 7 mg/dL (7-20); CALCIUM 9.2 mg/dL (8.4-10.2); CARBON DIOXIDE 23 mmol/L (22-30); CHLORIDE 101 mmol/L (98-107); GLUCOSE 105 mg/dL (75-110); PHOSPHORUS 3.2 mg/dL (2.5-4.5); SODIUM 135.3 mmol/L (137-145); TOTAL PROTEIN 7.1 g/dL (6.3-8.2)
[2018-12-28] MEDS: METFORMIN HCL 500 MG TABLET PO SCH ×2 (07:25→16:41)
[2018-12-28] MEDS ORDERED: VANCOMYCIN HCL 0 MG in DEXTROSE 5%-WATER 250 ML IV NR (07:45)
[2018-12-28] MEDS: INSULIN LISPRO 100 UNIT/ML 3 ML VIAL SUBCUT SCH ×3 (08:03→16:41)
[2018-12-28] MEDS: FERROUS SULFATE 325 MG TABLET PO SCH ×2 (08:03→18:05)
[2018-12-28] MEDS: HALOPERIDOL LACTATE INJ 5 MG/1 ML VIAL IV PRN ×2 (08:14→16:03)
[2018-12-28] MEDS: DOCUSATE SODIUM 100 MG CAPSULE PO SCH ×2 (09:46→17:14)
[2018-12-28] MEDS: SITAGLIPTIN PHOSPHATE 50 MG TABLET PO SCH (09:46)
[2018-12-28] MEDS: POLYETHYLENE GLYCOL 3350 POWDER 17 GM/1 PACKET PO SCH (09:46)
[2018-12-28] MEDS: ENOXAPARIN SODIUM INJ 40 MG/0.4 ML DISP.SYRIN SUBCUT SCH (09:46)
[2018-12-28] MEDS: CLOPIDOGREL BISULFATE 75 MG TABLET PO SCH (09:46)
[2018-12-28] MEDS: COLLAGENASE CLOSTRIDIUM HIST. OINT 30 GM TP SCH ×2 (09:47→22:03)
[2018-12-28] MEDS ORDERED: MIDAZOLAM 2 MG/2 ML INJ ONE (10:50)
[2018-12-28] MEDS ORDERED: FENTANYL CITRATE INJ/PF 100 MCG/2 ML AMPUL ONE (10:50)
[2018-12-28] MEDS ORDERED: PROPOFOL INJ 200 MG/20 ML VIAL IV ONE (10:51)
[2018-12-28] MEDS ORDERED: ONDANSETRON HCL INJ/PF 4 MG/2 ML SDV ONE (10:51)
[2018-12-28] MEDS ORDERED: ACETAMINOPHEN 1,000 MG/100 ML RTUPB IV ONE (10:51)
[2018-12-28] MEDS ORDERED: PROMETHAZINE HCL INJ 25 MG/1 ML VIAL IV PRN ×2 (12:10)
[2018-12-28] MEDS ORDERED: MORPHINE SULFATE 10 MG/ML INJ IV PRN (12:10)
[2018-12-28] MEDS ORDERED: ONDANSETRON HCL INJ/PF 4 MG/2 ML SDV IV PRN (12:10)
[2018-12-28] MEDS ORDERED: DIPHENHYDRAMINE HCL 50 MG/ML VIAL IV PRN (12:10)
[2018-12-28] MEDS ORDERED: OXYCODONE-ACETAMINOPHEN 5-325 MG TABLET PO PRN ×2 (12:10)
[2018-12-28] MEDS ORDERED: MEPERIDINE HCL/PF INJ 25 MG/1 ML DISP.SYRIN IV PRN (12:10)
[2018-12-28] MEDS ORDERED: FENTANYL CITRATE INJ/PF 100 MCG/2 ML AMPUL IV PRN ×3 (12:10)
--- NOTE | 2018-12-28 12:41 | Operative Report ---
Nonrecallable Operative Report DATE OF SURGERY: 12/28/18 PREOPERATIVE DIAGNOSIS: non healing bka stump POSTOPERATIVE DIAGNOSIS: non healing bka stump OPERATION: right above the knee amputation SURGEON: TANISHA DE LA FUENTE ANESTHESIA: Spinal TISSUE REMOVED OR ALTERED: right above knee speciem COMPLICATIONS: none ESTIMATED BLOOD LOSS: 75 INTRAOPERATIVE FINDINGS: see dictation PROCEDURE: see dictation
--- NOTE | 2018-12-28 13:05 | PDOC PROGRESS REPORT ---
Subjective Progress Note for:: 12/28/18 Subjective:: DUSTIN MALDONADO is a 58 year old female with past medical history of diabetes, hypertension, CVA without residual, peripheral neuropathy, dyslipidemia, COPD, iron deficiency anemia, anxiety, recurrent pyelonephritis and BKA November 09, 2018 who was admitted 12/22/2018 for sepsis secondary to right BKA surgical site infection. POD#5 surgical debridement of the right stump. Patient was seen on morning rounds. She was found resting in bed comfortably with room air. She denies pain at present but does report anxiety. Otherwise, her only complaint is that she thought that she smelled some smoke this morning and had some shortness of breath thereafter. However, she quickly reiterates that she believes that this was just anxiety regarding her pending AKA this morning. She has no new questions or concerns. She denies fever, chills, chest pain, palpitations, current dyspnea, orthopnea, cough, abdominal pain, vomiting and diarrhea. No concerns per nursing. Reason For Visit: HYPERKALEMIA W T WAVE PEAK,R STUMP NECROSIS Physical Exam Vital Signs: Temp Pulse Resp BP Pulse Ox 97.6 F 76 16 158/68 H 99 12/28/18 12:43 12/28/18 12:58 12/28/18 12:58 12/28/18 12:58 12/28/18 12:58 Intake & Output 12/27/18 12/28/18 12/29/18 06:59 06:59 06:59 Intake Total 1140 1348 1700 Output Total 700 801 960 Balance 440 547 740 Weight 53.8 kg 53.3 kg General appearance: PRESENT: no acute distress, cooperative, thin, well- developed Head exam: PRESENT: atraumatic, normocephalic Eye exam: PRESENT: conjunctiva pink, EOMI, PERRLA. ABSENT: scleral icterus Mouth exam: PRESENT: moist, tongue midline Neck exam: ABSENT: carotid bruit, JVD, lymphadenopathy, thyromegaly Respiratory exam: PRESENT: clear to auscultation roderick, symmetrical, unlabored. ABSENT: rales, rhonchi, wheezes Cardiovascular exam: PRESENT: RRR, +S1, +S2. ABSENT: diastolic murmur, rubs, systolic murmur Pulses: PRESENT: normal dorsalis pedis pul Vascular exam: PRESENT: normal capillary refill GI/Abdominal exam: PRESENT: normal bowel sounds, soft. ABSENT: distended, guarding, mass, organolmegaly, rebound, tenderness Rectal exam: PRESENT: deferred Extremities exam: PRESENT: full ROM, other - Right BKA. ABSENT: calf tenderness, clubbing, pedal edema Neurological exam: PRESENT: alert, awake, oriented to person, oriented to place, oriented to time, oriented to situation, CN II-XII grossly intact. ABSENT: motor sensory deficit Psychiatric exam: PRESENT: appropriate affect, normal mood. ABSENT: homicidal ideation, suicidal ideation Skin exam: PRESENT: dry, warm, other - Surgical incision to right BKA not visualized; surgical dressing in place. ABSENT: cyanosis, rash Results Laboratory Results: 12/28/18 05:36 12/28/18 05:36 12/28/18 12/28/18 05:36 05:36 WBC 9.4 RBC 3.86 Hgb 10.8 L Hct 31.9 L MCV 82 MCH 28.0 MCHC 34.0 RDW 15.7 H Plt Count 400 Sodium 135.3 L Potassium 4.0 Chloride 101 Carbon Dioxide 23 Anion Gap 11 BUN 7 Creatinine 0.54 Est GFR ( Amer) > 60 Est GFR (Non-Af Amer) > 60 Glucose 105 Calcium 9.2 Phosphorus 3.2 Magnesium 1.7 Total Bilirubin 0.5 AST 10 L ALT 17 Alkaline Phosphatase 91 Total Protein 7.1 Albumin 3.2 L 12/22/18 18:10 Blood Blood Culture - Final NO GROWTH IN 5 DAYS 12/22/18 16:34 Blood Blood Culture - Final NO GROWTH IN 5 DAYS 12/22/18 19:00 Knee - Below Knee Amputation Site Gram Stain - Final 12/22/18 19:00 Knee - Below Knee Amputation Site Wound Culture - Final Staphylococcus Aureus Mrsa (Meth Resis Staph Aureus) No Anaerobic Organisms 12/23/18 22:21 Knee - Below Knee Amputation Site Gram Stain - Final 12/22/18 12/23/18 12/23/18 16:34 05:40 05:40 Creatine Kinase < 20 L < 20 L CK-MB (CK-2) < 0.22 Troponin I < 0.012 12/23/18 12/23/18 12/23/18 11:37 11:37 16:50 Creatine Kinase < 20 L < 20 L CK-MB (CK-2) < 0.22 Troponin I < 0.012 12/23/18 16:50 Creatine Kinase CK-MB (CK-2) < 0.22 Troponin I < 0.012 Impressions: Chest X-Ray 12/22/18 16:09 IMPRESSION: NO ACUTE FINDINGS. Tibia/Fibula X-Ray 12/22/18 16:10 IMPRESSION: Recent appearing right below-knee amputation without obvious evidence of bony erosion or sclerosis to suggest osteomyelitis. Soft tissue swelling of the stump. Abdomen X-Ray 12/23/18 04:33 IMPRESSION: 1. Right nephrolithiasis. 2. Otherwise nonspecific abdomen. Assessment and Plan - Diagnosis (1) Infection of right below knee amputation Is this a current diagnosis for this admission?: Yes Plan: Blood cultures are negative at 5 days. Wound culture positive for MRSA and E.coli Patient was empirically placed on IV vancomycin and Zosyn. POD#5 R stump debridement. Wound care per their expertise. Surgery is consulted; planning for BKA today. Patient's amputation was very recent, only 1 month ago, and she is already having difficulty with wound healing. Will require close follow up with wound c are clinic. (2) Diabetes Qualifiers: Diabetes mellitus type: type 2 Diabetes mellitus extermination supervisor insulin use: with extermination supervisor use Is this a current diagnosis for this admission?: Yes Plan: PMH DM type 2, well controlled with A1c of 6.1%. Accu-Cheks every 6 hours with Humalog sliding scale coverage. 1/2 dose home dose lantus Hypoglycemia protocol. Consistent carb diet. Registered dietitian and health promotion educator consulted. (3) Hyperkalemia Is this a current diagnosis for this admission?: Yes Plan: Resolved. Potassium of 6.0 on admission; without peak T waves Patient is received insulin, albuterol, calcium carbonate, lactulose. We will continue to monitor with daily chemistries. (4) Osteomyelitis Is this a current diagnosis for this admission?: Yes Plan: As above. (5) Iron deficiency anemia Qualifiers: Iron deficiency anemia type: unspecified iron deficiency Qualified Code(s): D50.9 - Iron deficiency anemia, unspecified Is this a current diagnosis for this admission?: Yes Plan: Multifactorial to include chronic disease acute inflammation Daily multivitamin and ferrous sulfate supplementation. Registered dietitian is consulted. (6) Severe sepsis Is this a current diagnosis for this admission?: Yes Plan: Resolved Secondary to stump necrosis versus UTI (leuk esterase & WBC) Blood culture negative at 4 days Wound culture (+) MRSA and e.coli Urine culture grew <2000 colonies; UTI is ruled out. Patient is treated with IV vancomycin and cipro for wound infection. Will discontinue Macrobid today. (7) UTI (urinary tract infection) Is this a current diagnosis for this admission?: Yes Plan: Urinalysis positive for UTI (leuk esterase & >182 WBC) Urine culture negative Macrobid is discontinued after 4 days of therapy. IV ciprofloxacin provided for wound infection would provides appropriate cross coverage. (8) Hypertension Qualifiers: Is this a current diagnosis for this admission?: Yes Plan: Continue home dose carvedilol, lisinopril IV hydralazine as needed for blood pressure control. Pain management as above. - Time Time Spent with patient: 25-34 minutes Medications reviewed and adjusted accordingly: Yes Anticipated discharge: Home with Homehealth - Inpatient Certification Based on my medical assessment, after consideration of the patient's comorbiditi es, presenting symptoms, or acuity I expect that the services needed warrant INPATIENT care.: Yes I certify that my determination is in accordance with my understanding of [facility]'s requirements for reasonable and necessary INPATIENT services [42 CFR 412.3e].: Yes Medical Necessity: Need for Pain Control, Need for IV Antibiotics, Need for Surgery
[2018-12-28] MEDS: FLUTICASONE/VILANTEROL 100-25 MCG/DOSE IH SCH (14:03)
[2018-12-28] MEDS: CIPROFLOXACIN 400 MG/D5W RTU 400 MG/200 ML RTUPB IV SCH (14:05)
[2018-12-28] MEDS: BUPROPION HCL 75 MG TABLET PO SCH ×2 (14:13→18:05)
[2018-12-28] MEDS: MULTIVITAMINS W-IRON TABLET, CHEWABLE PO SCH (14:14)
[2018-12-28] MEDS: FUROSEMIDE 20 MG TABLET PO SCH (14:14)
[2018-12-28] MEDS: FAMOTIDINE 20 MG TABLET PO SCH ×2 (14:14→22:03)
[2018-12-28] MEDS: CARVEDILOL 12.5 MG TABLET PO SCH ×2 (14:14→22:02)
[2018-12-28] MEDS: LISINOPRIL 5 MG TABLET PO SCH (14:14)
[2018-12-28] MEDS: VANCOMYCIN HCL 1,000 MG in DEXTROSE 5%-WATER 250 ML IV SCH ×2 (14:14→22:05)
[2018-12-28] MEDS ORDERED: LORAZEPAM INJ 2 MG/1 ML VIAL IV ONE (15:30)
[2018-12-28] MEDS: TRAMADOL HCL 50 MG TABLET PO PRN ×2 (16:03→22:04)
[2018-12-28] MEDS ORDERED: HALOPERIDOL LACTATE INJ 5 MG/1 ML VIAL IV PRN (16:11)
[2018-12-28] MEDS ORDERED: ZIPRASIDONE HCL 20 MG CAPSULE PO PRN (17:17)
--- NOTE | 2018-12-28 17:34 | OPERATIVE REPORT E ---
Operative Report NAME: DUSTIN MALDONADO : 1960 AGE: 58Y DATE OF SURGERY: 12/28/2018 ROOM: 305 PREOPERATIVE DIAGNOSES: RIGHT BELOW THE KNEE AMPUTATION STUMP DEHISCENCE AND FAILURE TO HEAL. POSTOPERATIVE DIAGNOSES: RIGHT BELOW THE KNEE AMPUTATION STUMP DEHISCENCE AND FAILURE TO HEAL. OPERATION: Right above the knee amputation. SURGEON: TANISHA DE LA FUENTE M.D. PROCEDURE IN DETAIL: The patient was brought to the operating room in an awake, alert, and stable condition. Placed on the operating room table in the supine position after a spinal anesthetic was placed. The right extremity was prepped and draped in the usual sterile manner for the procedure. After appropriate timeout and site verification the right above the knee amputation site was marked with a skin marker and a tennis racquet type incision was made approximately 1 hand's-breadth above the patella. After the incision dissection was carried down through subcutaneous tissue and fats with Bovie cautery through the muscle. We then identified the femoral artery nerve as well as the vein and serially ligated these with Michelle clamps, divided them, and secured them with 0-Vicryl ties. We came to the rectus femoris muscle as well as the gastrocnemius muscle and the deep thigh muscles with the Bovie cautery. Once this was accomplished we used the periosteal elevator to dissect the periosteum up away proximal on the femur and divided the femur with a bone saw. The edges of the femur were then tapered with the bone saw and the file to give a smooth end. Once hemostasis was then obtained the 3 muscles were reapproximated with interrupted 2-0 Vicryl suture and then the subcutaneous tissue was reapproximated similarly and the skin was reapproximated loosely with yodit which completed the procedure. Estimated blood loss 150 mL. Sponge and needle counts correct x2. The patient was awakened in the operating room and transferred to recovery in stable condition, no complications. DICTATING PHYSICIAN: TANISHA DE LA FUENTE M.D. [id number] PHY#: [id number] ID: [id number] JOB#: [id number] ACCT: [id number] cc:TANISHA DE LA FUENTE M.D. >
[2018-12-28] MEDS ORDERED: DIVALPROEX SODIUM 250 MG TAB.SR.24H PO SCH (18:00)
[2018-12-28] MEDS ORDERED: ZIPRASIDONE HCL 20 MG CAPSULE PO ONE (18:08)
[2018-12-28] MEDS: BUSPIRONE HCL 10 MG TABLET PO SCH (22:02)
[2018-12-28] MEDS: HYDROCODONE/ACETAMINOPHEN 5-325 MG TABLET PO PRN (22:03)
[2018-12-28] MEDS: MONTELUKAST SODIUM 10 MG TABLET PO SCH (22:03)
[2018-12-28] MEDS ORDERED: INSULIN GLARGINE,HUM.REC.ANLOG 1,000 UNIT/10 ML VIAL (PYX) SUBCUT ONE (22:10)
[2018-12-28] MEDS: INSULIN GLARGINE,HUM.REC.ANLOG 1,000 UNIT/10 ML VIAL SUBCUT SCH (22:11)
[2018-12-28] MEDS: MELATONIN 5 MG TABLET PO SCH (22:11)
[2018-12-29] MEDS: CIPROFLOXACIN 400 MG/D5W RTU 400 MG/200 ML RTUPB IV SCH ×2 (01:23→13:18)
[2018-12-29] MEDS: MORPHINE SULFATE 10 MG/ML INJ IV PRN ×3 (04:45→23:20)
[2018-12-29] MEDS: LACTULOSE SYRUP 20 GM/30 ML UDCUP PR SCH ×2 (06:00→17:13)
[2018-12-29] MEDS: HYDROCODONE/ACETAMINOPHEN 5-325 MG TABLET PO PRN (06:02)
[2018-12-29] MEDS: GABAPENTIN 300 MG CAPSULE PO SCH ×3 (06:02→21:04)
[2018-12-29 08:31] LABS: HEMATOCRIT 27.1 % (36.0-47.0); HEMOGLOBIN 9.1 g/dL (12.0-15.5); MEAN CORPUSCULAR HEMOGLOBIN 27.8 pg (27.0-33.4); MEAN CORPUSCULAR HGB CONC 33.7 g/dL (32.0-36.0); MEAN CORPUSCULAR VOLUME 83 fl (80-97); PLATELET COUNT 360 10^3/uL (150-450); RED BLOOD COUNT 3.29 10^6/uL (3.72-5.28); RED CELL DISTRIBUTION WIDTH 15.8 % (11.5-14.0); WHITE BLOOD COUNT 12.3 10^3/uL (4.0-10.5)
[2018-12-29 08:37] LABS: ALANINE AMINOTRANSFERASE 16 U/L (9-52); ALBUMIN 2.9 g/dL (3.5-5.0); ALKALINE PHOSPHATASE 65 U/L (38-126); ANION GAP 12 (5-19); ASPARTATE AMINO TRANSFERASE 12 U/L (14-36); BILIRUBIN,DIRECT 0.3 mg/dL (0.0-0.4); BILIRUBIN,TOTAL 0.6 mg/dL (0.2-1.3); BLOOD UREA NITROGEN 6 mg/dL (7-20); CALCIUM 8.5 mg/dL (8.4-10.2); CARBON DIOXIDE 24 mmol/L (22-30); CHLORIDE 97 mmol/L (98-107); GLUCOSE 170 mg/dL (75-110); PHOSPHORUS 3.1 mg/dL (2.5-4.5); POTASSIUM 4.1 mmol/L (3.6-5.0); SODIUM 132.5 mmol/L (137-145); TOTAL PROTEIN 6.5 g/dL (6.3-8.2)
[2018-12-29] MEDS: CLOPIDOGREL BISULFATE 75 MG TABLET PO SCH (09:30)
[2018-12-29] MEDS: FUROSEMIDE 20 MG TABLET PO SCH (09:30)
[2018-12-29] MEDS: CARVEDILOL 12.5 MG TABLET PO SCH ×2 (09:30→21:08)
[2018-12-29] MEDS: LISINOPRIL 5 MG TABLET PO SCH (09:31)
[2018-12-29] MEDS: SITAGLIPTIN PHOSPHATE 50 MG TABLET PO SCH (09:31)
[2018-12-29] MEDS: FAMOTIDINE 20 MG TABLET PO SCH ×2 (09:31→21:04)
[2018-12-29] MEDS: BUSPIRONE HCL 10 MG TABLET PO SCH ×2 (09:32→21:04)
[2018-12-29] MEDS: DOCUSATE SODIUM 100 MG CAPSULE PO SCH ×2 (09:32→17:14)
[2018-12-29] MEDS: FERROUS SULFATE 325 MG TABLET PO SCH ×2 (09:32→17:18)
[2018-12-29] MEDS: METFORMIN HCL 500 MG TABLET PO SCH ×2 (09:32→17:18)
[2018-12-29] MEDS: INSULIN LISPRO 100 UNIT/ML 3 ML VIAL SUBCUT SCH ×3 (09:33→17:13)
[2018-12-29] MEDS: FLUTICASONE/VILANTEROL 100-25 MCG/DOSE IH SCH (09:33)
[2018-12-29] MEDS: MULTIVITAMINS W-IRON TABLET, CHEWABLE PO SCH (09:34)
[2018-12-29] MEDS: ENOXAPARIN SODIUM INJ 40 MG/0.4 ML DISP.SYRIN SUBCUT SCH (09:35)
[2018-12-29] MEDS: COLLAGENASE CLOSTRIDIUM HIST. OINT 30 GM TP SCH ×2 (09:35→21:05)
[2018-12-29] MEDS: BUPROPION HCL 75 MG TABLET PO SCH ×2 (09:35→17:20)
[2018-12-29] MEDS: VANCOMYCIN HCL 1,000 MG in DEXTROSE 5%-WATER 250 ML IV SCH ×2 (09:38→22:25)
--- NOTE | 2018-12-29 12:10 | PDOC PROGRESS REPORT ---
Subjective Progress Note for:: 12/29/18 Reason For Visit: HYPERKALEMIA W T WAVE PEAK,R STUMP NECROSIS Physical Exam Vital Signs: Temp Pulse Resp BP Pulse Ox 99.4 F 89 18 136/57 H 98 12/29/18 04:16 12/29/18 07:00 12/29/18 04:16 12/29/18 04:16 12/29/18 04:16 Intake & Output 12/28/18 12/29/18 12/30/18 06:59 06:59 06:59 Intake Total 1348 2750 Output Total 801 960 Balance 547 1790 Weight 53.3 kg 52 kg Results Laboratory Results: 12/29/18 07:36 12/29/18 07:36 12/29/18 12/29/18 07:36 07:36 WBC 12.3 H RBC 3.29 L Hgb 9.1 L Hct 27.1 L MCV 83 MCH 27.8 MCHC 33.7 RDW 15.8 H Plt Count 360 Sodium 132.5 L Potassium 4.1 Chloride 97 L Carbon Dioxide 24 Anion Gap 12 BUN 6 L Creatinine 0.92 Est GFR ( Amer) > 60 Est GFR (Non-Af Amer) > 60 Glucose 170 H Calcium 8.5 Phosphorus 3.1 Magnesium 1.1 L* Total Bilirubin 0.6 AST 12 L ALT 16 Alkaline Phosphatase 65 Total Protein 6.5 Albumin 2.9 L 12/26/18 15:28 Stool - Stool - Final 12/26/18 15:28 Stool - Stool Stool Culture - Final C.albicans/C.dubliniensis 12/22/18 12/23/18 12/23/18 16:34 05:40 05:40 Creatine Kinase < 20 L < 20 L CK-MB (CK-2) < 0.22 Troponin I < 0.012 12/23/18 12/23/18 12/23/18 11:37 11:37 16:50 Creatine Kinase < 20 L < 20 L CK-MB (CK-2) < 0.22 Troponin I < 0.012 12/23/18 16:50 Creatine Kinase CK-MB (CK-2) < 0.22 Troponin I < 0.012 Impressions: Chest X-Ray 12/22/18 16:09 IMPRESSION: NO ACUTE FINDINGS. Tibia/Fibula X-Ray 12/22/18 16:10 IMPRESSION: Recent appearing right below-knee amputation without obvious evidence of bony erosion or sclerosis to suggest osteomyelitis. Soft tissue sw elling of the stump. Abdomen X-Ray 12/23/18 04:33 IMPRESSION: 1. Right nephrolithiasis. 2. Otherwise nonspecific abdomen. Assessment & Plan - Diagnosis (1) Ischemia of right lower extremity Is this a current diagnosis for this admission?: Yes - Plan Summary Plan Summary: This is a 58-year-old female with chronic limb ischemia of the right lower extremity. The patient underwent below-knee amputation, however this was complicated by infection and necrosis of the skin. The patient had her BKA revised to an above-knee amputation. She is resting comfortably in bed today. She has no complaints. The stump is wrapped with Kerlix and Covan. The dressing is intact. Continue with routine postoperative care. Will follow.
--- NOTE | 2018-12-29 12:45 | PDOC PROGRESS REPORT ---
Subjective Progress Note for:: 12/29/18 Subjective:: DUSTIN MALDONADO is a 58 year old female with past medical history of diabetes, hypertension, CVA without residual, peripheral neuropathy, dyslipidemia, COPD, iron deficiency anemia, anxiety, recurrent pyelonephritis and BKA November 09, 2018 who was admitted 12/22/2018 for sepsis secondary to right BKA surgical site infection. POD#1 Rt AKA Patient was seen on morning rounds. She was found resting in bed comfortably with room air. She denies pain at present. She tells me that she is tired and otherwise denies fever, chills, chest pain, palpitations, dyspnea, orthopnea, cough, abdominal pain, vomiting and diarrhea. She has no other questions or concerns. No concerns per nursing; patient did have anxiety and agitation last night, seemed to respond well to Geodon. Reason For Visit: HYPERKALEMIA W T WAVE PEAK,R STUMP NECROSIS Physical Exam Vital Signs: Temp Pulse Resp BP Pulse Ox 99.4 F 89 18 136/57 H 98 12/29/18 04:16 12/29/18 07:00 12/29/18 04:16 12/29/18 04:16 12/29/18 04:16 Intake & Output 12/28/18 12/29/18 12/30/18 06:59 06:59 06:59 Intake Total 1348 2750 Output Total 801 960 Balance 547 1790 Weight 53.3 kg 52 kg General appearance: PRESENT: no acute distress, thin, well-developed, well- nourished Head exam: PRESENT: atraumatic, normocephalic Eye exam: PRESENT: conjunctiva pink, EOMI, PERRLA. ABSENT: scleral icterus Mouth exam: PRESENT: moist, tongue midline Neck exam: ABSENT: carotid bruit, JVD, lymphadenopathy, thyromegaly Respiratory exam: PRESENT: clear to auscultation roderick, symmetrical, unlabored. ABSENT: rales, rhonchi, wheezes Cardiovascular exam: PRESENT: RRR, +S1, +S2. ABSENT: diastolic murmur, rubs, systolic murmur Pulses: PRESENT: normal dorsalis pedis pul Vascular exam: PRESENT: normal capillary refill GI/Abdominal exam: PRESENT: normal bowel sounds, soft. ABSENT: distended, guarding, mass, organolmegaly, rebound, tenderness Rectal exam: PRESENT: deferred Extremities exam: PRESENT: full ROM, other - Right AKA; surgical incision not visualized, surgery has just visited and placed in a clean dry dressing.. ABSENT: calf tenderness, clubbing, pedal edema Neurological exam: PRESENT: alert, awake, oriented to person, oriented to place, oriented to time, oriented to situation, CN II-XII grossly intact. ABSENT: motor sensory deficit Psychiatric exam: PRESENT: appropriate affect, normal mood. ABSENT: homicidal ideation, suicidal ideation Skin exam: PRESENT: dry, warm. ABSENT: cyanosis, rash Results Laboratory Results: 12/29/18 07:36 12/29/18 07:36 12/29/18 12/29/18 07:36 07:36 WBC 12.3 H RBC 3.29 L Hgb 9.1 L Hct 27.1 L MCV 83 MCH 27.8 MCHC 33.7 RDW 15.8 H Plt Count 360 Sodium 132.5 L Potassium 4.1 Chloride 97 L Carbon Dioxide 24 Anion Gap 12 BUN 6 L Creatinine 0.92 Est GFR ( Amer) > 60 Est GFR (Non-Af Amer) > 60 Glucose 170 H Calcium 8.5 Phosphorus 3.1 Magnesium 1.1 L* Total Bilirubin 0.6 AST 12 L ALT 16 Alkaline Phosphatase 65 Total Protein 6.5 Albumin 2.9 L 12/26/18 15:28 Stool - Stool - Final 12/26/18 15:28 Stool - Stool Stool Culture - Final C.albicans/C.dubliniensis 12/22/18 12/23/18 12/23/18 16:34 05:40 05:40 Creatine Kinase < 20 L < 20 L CK-MB (CK-2) < 0.22 Troponin I < 0.012 12/23/18 12/23/18 12/23/18 11:37 11:37 16:50 Creatine Kinase < 20 L < 20 L CK-MB (CK-2) < 0.22 Troponin I < 0.012 12/23/18 16:50 Creatine Kinase CK-MB (CK-2) < 0.22 Troponin I < 0.012 Impressions: Chest X-Ray 12/22/18 16:09 IMPRESSION: NO ACUTE FINDINGS. Tibia/Fibula X-Ray 12/22/18 16:10 IMPRESSION: Recent appearing right below-knee amputation without obvious evidence of bony erosion or sclerosis to suggest osteomyelitis. Soft tissue swelling of the stump. Abdomen X-Ray 12/23/18 04:33 IMPRESSION: 1. Right nephrolithiasis. 2. Otherwise nonspecific abdomen. Assessment and Plan - Diagnosis (1) Infection of right below knee amputation Is this a current diagnosis for this admission?: Yes Plan: Blood cultures are negative at 5 days. Wound culture positive for MRSA and E.coli Postop day #1 AKA. Patient was empirically placed on IV vancomycin and Zosyn. Surgery is consulted; wound care per their expertise. (2) Diabetes Qualifiers: Diabetes mellitus type: type 2 Diabetes mellitus detention insulin use: with detention use Is this a current diagnosis for this admission?: Yes Plan: PMH DM type 2, well controlled with A1c of 6.1%. Accu-Cheks every 6 hours with Humalog sliding scale coverage. 1/2 dose home dose lantus Hypoglycemia protocol. Consistent carb diet. Registered dietitian and visual educator consulted. (3) Hyperkalemia Is this a current diagnosis for this admission?: Yes Plan: Resolved. We will continue to monitor with daily chemistries. (4) Osteomyelitis Is this a current diagnosis for this admission?: Yes Plan: As above. (5) Iron deficiency anemia Qualifiers: Iron deficiency anemia type: unspecified iron deficiency Qualified Code(s): D50.9 - Iron deficiency anemia, unspecified Is this a current diagnosis for this admission?: Yes Plan: Multifactorial to include chronic disease and acute inflammation Daily multivitamin and ferrous sulfate supplementation. Registered dietitian is consulted. (6) Severe sepsis Is this a current diagnosis for this admission?: Yes Plan: Resolved Secondary to stump necrosis versus UTI (leuk esterase & WBC) Blood culture negative at 4 days Wound culture (+) MRSA and e.coli Urine culture grew <2000 colonies; UTI is ruled out. Patient is treated with IV vancomycin and cipro for wound infection. Macrobid discontinued yesterday (7) UTI (urinary tract infection) Is this a current diagnosis for this admission?: Yes Plan: Urinalysis positive for UTI (leuk esterase & >182 WBC) Urine culture negative Macrobid is discontinued after 4 days of therapy. IV ciprofloxacin provided for wound infection would provides appropriate cross coverage. (8) Hypertension Qualifiers: Is this a current diagnosis for this admission?: Yes Plan: Continue home dose carvedilol, lisinopril IV hydralazine as needed for blood pressure control. Pain management as above. (9) Hypomagnesemia Is this a current diagnosis for this admission?: Yes Plan: Will replace; continue to monitor. (10) Anxiety Is this a current diagnosis for this admission?: Yes Plan: Continue home dose Wellbutrin. Have started BuSpar twice daily. Provide adequate analgesic. Geodon as needed for agitation - Time Time Spent with patient: 25-34 minutes Medications reviewed and adjusted accordingly: Yes Anticipated discharge: Home with Homehealth Within: within 72 hours
[2018-12-29] MEDS: MAGNESIUM SULFATE/D5W 1 GM/100 ML RTUPB IV SCH ×2 (13:19→17:17)
[2018-12-29] MEDS ORDERED: MAGNESIUM SULFATE/D5W 1 GM/100 ML RTUPB IV ONE (17:16)
[2018-12-29] MEDS: TRAMADOL HCL 50 MG TABLET PO PRN (21:04)
[2018-12-29] MEDS: MONTELUKAST SODIUM 10 MG TABLET PO SCH (21:05)
[2018-12-29] MEDS: INSULIN GLARGINE,HUM.REC.ANLOG 1,000 UNIT/10 ML VIAL SUBCUT SCH (22:00)
[2018-12-29 22:15] LABS: VANCOMYCIN,TROUGH 26.5 ug/mL (5.0-20.0)
[2018-12-29] MEDS: MELATONIN 5 MG TABLET PO SCH (22:45)
[2018-12-30] MEDS: CIPROFLOXACIN 400 MG/D5W RTU 400 MG/200 ML RTUPB IV SCH ×2 (00:10→12:54)
[2018-12-30] MEDS: GABAPENTIN 300 MG CAPSULE PO SCH (05:13)
[2018-12-30 05:17] LABS: HEMATOCRIT 24.4 % (36.0-47.0); HEMOGLOBIN 8.5 g/dL (12.0-15.5); MEAN CORPUSCULAR HEMOGLOBIN 28.7 pg (27.0-33.4); MEAN CORPUSCULAR HGB CONC 34.9 g/dL (32.0-36.0); MEAN CORPUSCULAR VOLUME 82 fl (80-97); PLATELET COUNT 299 10^3/uL (150-450); RED BLOOD COUNT 2.97 10^6/uL (3.72-5.28); RED CELL DISTRIBUTION WIDTH 15.9 % (11.5-14.0)
[2018-12-30] MEDS: LACTULOSE SYRUP 20 GM/30 ML UDCUP PR SCH ×2 (05:45→17:07)
[2018-12-30 05:46] LABS: ANION GAP 14 (5-19); BLOOD UREA NITROGEN 16 mg/dL (7-20); CALCIUM 8.7 mg/dL (8.4-10.2); CARBON DIOXIDE 20 mmol/L (22-30); CHLORIDE 96 mmol/L (98-107); GLUCOSE 99 mg/dL (75-110); POTASSIUM 4.2 mmol/L (3.6-5.0); SODIUM 129.8 mmol/L (137-145)
[2018-12-30] MEDS: INSULIN LISPRO 100 UNIT/ML 3 ML VIAL SUBCUT SCH ×3 (08:29→17:07)
[2018-12-30] MEDS: METFORMIN HCL 500 MG TABLET PO SCH (08:30)
[2018-12-30] MEDS ORDERED: NORMAL SALINE 1000 ML 1,000 ML IV ONE (08:30)
[2018-12-30] MEDS: FERROUS SULFATE 325 MG TABLET PO SCH ×2 (09:03→17:27)
[2018-12-30] MEDS: BUSPIRONE HCL 10 MG TABLET PO SCH ×2 (09:04→21:22)
[2018-12-30] MEDS: CARVEDILOL 12.5 MG TABLET PO SCH ×2 (09:04→21:21)
[2018-12-30] MEDS: CLOPIDOGREL BISULFATE 75 MG TABLET PO SCH (09:04)
[2018-12-30] MEDS: SITAGLIPTIN PHOSPHATE 50 MG TABLET PO SCH (09:04)
[2018-12-30] MEDS: ENOXAPARIN SODIUM INJ 40 MG/0.4 ML DISP.SYRIN SUBCUT SCH (09:04)
[2018-12-30] MEDS: DOCUSATE SODIUM 100 MG CAPSULE PO SCH ×2 (09:04→17:27)
[2018-12-30] MEDS: FAMOTIDINE 20 MG TABLET PO SCH ×2 (09:04→21:22)
[2018-12-30] MEDS: LISINOPRIL 5 MG TABLET PO SCH (09:05)
[2018-12-30] MEDS: VANCOMYCIN HCL 1,000 MG in DEXTROSE 5%-WATER 250 ML IV SCH (09:05)
[2018-12-30] MEDS: MORPHINE SULFATE 10 MG/ML INJ IV PRN (09:17)
--- NOTE | 2018-12-30 10:03 | PDOC PROGRESS REPORT ---
Subjective Progress Note for:: 12/30/18 Subjective:: Patient has adequate pain control; she has not been out of bed. Reason For Visit: HYPERKALEMIA W T WAVE PEAK,R STUMP NECROSIS Physical Exam Vital Signs: Temp Pulse Resp BP Pulse Ox 98.3 F 84 16 122/55 L 98 12/30/18 08:12 12/30/18 08:12 12/30/18 08:12 12/30/18 08:12 12/30/18 09:33 Intake & Output 12/29/18 12/30/18 12/31/18 06:59 06:59 06:59 Intake Total 2750 1475 Output Total 960 550 Balance 1790 925 Weight 52 kg 56 kg General appearance: PRESENT: no acute distress Extremities exam: PRESENT: other - Dressing removed; stump examined; tissue viable, no ischemia. Stump warm. No evidence of cellulitis Results Laboratory Results: 12/30/18 05:00 12/30/18 05:00 12/30/18 12/30/18 05:00 05:00 WBC 12.0 H RBC 2.97 L Hgb 8.5 L Hct 24.4 L MCV 82 MCH 28.7 MCHC 34.9 RDW 15.9 H Plt Count 299 Sodium 129.8 L Potassium 4.2 Chloride 96 L Carbon Dioxide 20 L Anion Gap 14 BUN 16 Creatinine 1.97 H Est GFR ( Amer) 31 L Est GFR (Non-Af Amer) 26 L Glucose 99 Calcium 8.7 Magnesium 1.9 12/23/18 22:21 Knee - Below Knee Amputation Site Gram Stain - Final 12/23/18 22:21 Knee - Below Knee Amputation Site Wound Culture - Final Mrsa (Meth Resis Staph Aureus) Escherichia Coli 12/26/18 15:28 Stool - Stool - Final 12/26/18 15:28 Stool - Stool Stool Culture - Final C.albicans/C.dubliniensis 12/22/18 12/23/18 12/23/18 16:34 05:40 05:40 Creatine Kinase < 20 L < 20 L CK-MB (CK-2) < 0.22 Troponin I < 0.012 12/23/18 12/23/18 12/23/18 11:37 11:37 16:50 Creatine Kinase < 20 L < 20 L CK-MB (CK-2) < 0.22 Troponin I < 0.012 12/23/18 16:50 Creatine Kinase CK-MB (CK-2) < 0.22 Troponin I < 0.012 Impressions: Chest X-Ray 12/22/18 16:09 IMPRESSION: NO ACUTE FINDINGS. Tibia/Fibula X-Ray 12/22/18 16:10 IMPRESSION: Recent appearing right below-knee amputation without obvious evidence of bony erosion or sclerosis to suggest osteomyelitis. Soft tissue swelling of the stump. Abdomen X-Ray 12/23/18 04:33 IMPRESSION: 1. Right nephrolithiasis. 2. Otherwise nonspecific abdomen. Assessment & Plan - Diagnosis (1) Infection of right below knee amputation Is this a current diagnosis for this admission?: Yes Plan: Impression: Patient is now postoperative day 2 status post right AKA, with no identified postoperative complication Recommendations: 1. We will order dressing changes 2. Patient to follow-up with [facility] in 1 to 2 weeks. 3. Patient's rehab potential is extremely guarded to have any emotional burden, and challenging social situation; nonetheless I have encouraged staff, and family to pursue rehab options.
[2018-12-30] MEDS: COLLAGENASE CLOSTRIDIUM HIST. OINT 30 GM TP SCH ×2 (10:31→21:43)
[2018-12-30] MEDS: BUPROPION HCL 75 MG TABLET PO SCH ×2 (12:53→17:27)
[2018-12-30] MEDS: MULTIVITAMINS W-IRON TABLET, CHEWABLE PO SCH (12:53)
[2018-12-30] MEDS: FLUTICASONE/VILANTEROL 100-25 MCG/DOSE IH SCH (12:54)
[2018-12-30] MEDS: NORMAL SALINE 1000 ML 1,000 ML IV PRN ×2 (12:54→21:27)
[2018-12-30] MEDS ORDERED: OXYCODONE-ACETAMINOPHEN 5-325 MG TABLET PO PRN (13:12)
--- NOTE | 2018-12-30 13:22 | PDOC PROGRESS REPORT ---
Subjective Progress Note for:: 12/30/18 Subjective:: DUSTIN MALDONADO is a 58 year old female with past medical history of diabetes, hypertension, CVA without residual, peripheral neuropathy, dyslipidemia, COPD, iron deficiency anemia, anxiety, recurrent pyelonephritis and BKA November 09, 2018 who was admitted 12/22/2018 for sepsis secondary to right BKA surgical site infection. POD#1 Rt AKA Patient was seen on morning rounds. She was found resting in bed comfortably with room air. She denies pain at present. She denies fever, chills, chest pain, palpitations, dyspnea, orthopnea, cough, abdominal pain, vomiting and diarrhea. She states that plan is for her to discharge to home health because she does not have rehab days left. She has no other questions or concerns. No concerns per nursing. We will ask discharge planning to assist with SNF with rehab versus home health arrangements. Reason For Visit: HYPERKALEMIA W T WAVE PEAK,R STUMP NECROSIS Physical Exam Vital Signs: Temp Pulse Resp BP Pulse Ox 98.3 F 84 16 122/55 L 98 12/30/18 08:12 12/30/18 08:12 12/30/18 08:12 12/30/18 08:12 12/30/18 09:33 Intake & Output 12/29/18 12/30/18 12/31/18 06:59 06:59 06:59 Intake Total 2750 1475 1250 Output Total 960 550 Balance 9786 756 7045 Weight 52 kg 56 kg General appearance: PRESENT: no acute distress, thin, well-developed, well- nourished Head exam: PRESENT: atraumatic, normocephalic Eye exam: PRESENT: conjunctiva pink, EOMI, PERRLA. ABSENT: scleral icterus Mouth exam: PRESENT: moist, tongue midline Neck exam: ABSENT: carotid bruit, JVD, lymphadenopathy, thyromegaly Respiratory exam: PRESENT: clear to auscultation roderick, symmetrical, unlabored. ABSENT: rales, rhonchi, wheezes Cardiovascular exam: PRESENT: RRR, +S1, +S2. ABSENT: diastolic murmur, rubs, systolic murmur Pulses: PRESENT: normal dorsalis pedis pul Vascular exam: PRESENT: normal capillary refill GI/Abdominal exam: PRESENT: normal bowel sounds, soft. ABSENT: distended, guarding, mass, organolmegaly, rebound, tenderness Rectal exam: PRESENT: deferred Extremities exam: PRESENT: full ROM, other - Right AKA. ABSENT: calf tenderness, clubbing, pedal edema Neurological exam: PRESENT: alert, awake, oriented to person, oriented to place, oriented to time, oriented to situation, CN II-XII grossly intact. ABSENT: motor sensory deficit Psychiatric exam: PRESENT: flat affect, normal mood. ABSENT: homicidal ideation, suicidal ideation Skin exam: PRESENT: dry, warm. ABSENT: cyanosis, rash Results Laboratory Results: 12/30/18 05:00 12/30/18 05:00 12/30/18 12/30/18 05:00 05:00 WBC 12.0 H RBC 2.97 L Hgb 8.5 L Hct 24.4 L MCV 82 MCH 28.7 MCHC 34.9 RDW 15.9 H Plt Count 299 Sodium 129.8 L Potassium 4.2 Chloride 96 L Carbon Dioxide 20 L Anion Gap 14 BUN 16 Creatinine 1.97 H Est GFR ( Amer) 31 L Est GFR (Non-Af Amer) 26 L Glucose 99 Calcium 8.7 Magnesium 1.9 12/23/18 22:21 Knee - Below Knee Amputation Site Gram Stain - Final 12/23/18 22:21 Knee - Below Knee Amputation Site Wound Culture - Final Mrsa (Meth Resis Staph Aureus) Escherichia Coli 12/22/18 12/23/18 12/23/18 16:34 05:40 05:40 Creatine Kinase < 20 L < 20 L CK-MB (CK-2) < 0.22 Troponin I < 0.012 12/23/18 12/23/18 12/23/18 11:37 11:37 16:50 Creatine Kinase < 20 L < 20 L CK-MB (CK-2) < 0.22 Troponin I < 0.012 12/23/18 16:50 Creatine Kinase CK-MB (CK-2) < 0.22 Troponin I < 0.012 Impressions: Chest X-Ray 12/22/18 16:09 IMPRESSION: NO ACUTE FINDINGS. Tibia/Fibula X-Ray 12/22/18 16:10 IMPRESSION: Recent appearing right below-knee amputation without obvious evidence of bony erosion or sclerosis to suggest osteomyelitis. Soft tissue swelling of the stump. Abdomen X-Ray 12/23/18 04:33 IMPRESSION: 1. Right nephrolithiasis. 2. Otherwise nonspecific abdomen. Assessment and Plan - Diagnosis (1) Infection of right below knee amputation Is this a current diagnosis for this admission?: Yes Plan: Blood cultures are negative at 5 days. Wound culture positive for MRSA and E.coli Postop day #2 AKA. Patient was empirically placed on IV vancomycin and Zosyn; transition to p.o. Bactrim based on culture and sensitivity results. Surgery is consulted; wound care per their expertise. Discharge planning is consulted; SNF for short-term rehab versus home with home health services. Analgesics as needed. Physical therapy consultation. 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 Accu-Cheks every 6 hours with Humalog sliding scale coverage. 1/2 dose home dose lantus Hypoglycemia protocol. Consistent carb diet. Registered dietitian and inclusion special educator consulted. (3) Hyperkalemia Is this a current diagnosis for this admission?: Yes Plan: Resolved. We will continue to monitor with daily chemistries. (4) Osteomyelitis Is this a current diagnosis for this admission?: Yes Plan: As above. (5) Iron deficiency anemia Qualifiers: Iron deficiency anemia type: unspecified iron deficiency Qualified Code(s): D50.9 - Iron deficiency anemia, unspecified Is this a current diagnosis for this admission?: Yes Plan: Multifactorial to include chronic disease and acute inflammation Daily multivitamin and ferrous sulfate supplementation. Registered dietitian is consulted. (6) Severe sepsis Is this a current diagnosis for this admission?: Yes Plan: Resolved Secondary to stump necrosis versus UTI (leuk esterase & WBC) Blood culture negative at 4 days Wound culture (+) MRSA and e.coli Urine culture grew <2000 colonies; UTI is ruled out. Patient was treated with IV vancomycin and cipro for wound infection and p.o. Macrobid for UTI. All discontinued. Transition to p.o. Bactrim for completion of antibiotic therapy. (7) UTI (urinary tract infection) Is this a current diagnosis for this admission?: Yes Plan: Ruled out. Urinalysis positive for UTI (leuk esterase & >182 WBC) Urine culture negative (8) Hypertension Qualifiers: Is this a current diagnosis for this admission?: Yes Plan: Continue home dose carvedilol, lisinopril IV hydralazine as needed for blood pressure control. Pain management as above. (9) Hypomagnesemia Is this a current diagnosis for this admission?: Yes Plan: Replete. (10) Anxiety Is this a current diagnosis for this admission?: Yes Plan: Continue home dose Wellbutrin. Continue BuSpar twice daily. Provide adequate analgesic. Geodon as needed for agitation; has not required any doses x24 hours. (11) PATT (acute kidney injury) Is this a current diagnosis for this admission?: Yes Plan: Multifactorial secondary to poor p.o. intake and multiple medications (Lasix, gabapentin, vancomycin) Creatining 0.54-> 0.92-> 1.97. Baseline 0.70 Gabapentin, Lasix, metformin on hold. Providing IV fluids. Vancomycin is discontinued. Continue daily chemistries. - Time Time Spent with patient: 15-24 minutes Medications reviewed and adjusted accordingly: Yes Anticipated discharge: SNF Within: within 48 hours
[2018-12-30] MEDS: OXYCODONE-ACETAMINOPHEN 5-325 MG TABLET PO PRN (17:27)
[2018-12-30] MEDS: MELATONIN 5 MG TABLET PO SCH (21:21)
[2018-12-30] MEDS: MONTELUKAST SODIUM 10 MG TABLET PO SCH (21:21)
[2018-12-30] MEDS: INSULIN GLARGINE,HUM.REC.ANLOG 1,000 UNIT/10 ML VIAL SUBCUT SCH (23:10)
[2018-12-31] MEDS: NORMAL SALINE 1000 ML 1,000 ML IV PRN ×3 (04:04→20:08)
[2018-12-31] MEDS: LACTULOSE SYRUP 20 GM/30 ML UDCUP PR SCH (05:13)
[2018-12-31] MEDS ORDERED: VANCOMYCIN HCL 500 MG in DEXTROSE 5%-WATER 100 ML IV SCH (06:00)
[2018-12-31] MEDS: OXYCODONE-ACETAMINOPHEN 5-325 MG TABLET PO PRN ×2 (06:47→17:57)
[2018-12-31] MEDS: INSULIN LISPRO 100 UNIT/ML 3 ML VIAL SUBCUT SCH ×3 (08:15→17:09)
[2018-12-31] MEDS: CARVEDILOL 12.5 MG TABLET PO SCH ×2 (09:12→21:55)
[2018-12-31] MEDS: FLUTICASONE/VILANTEROL 100-25 MCG/DOSE IH SCH (09:12)
[2018-12-31] MEDS: FERROUS SULFATE 325 MG TABLET PO SCH ×2 (09:12→17:56)
[2018-12-31] MEDS: DOCUSATE SODIUM 100 MG CAPSULE PO SCH ×2 (09:12→17:56)
[2018-12-31] MEDS: BUSPIRONE HCL 10 MG TABLET PO SCH ×2 (09:12→21:55)
[2018-12-31] MEDS: COLLAGENASE CLOSTRIDIUM HIST. OINT 30 GM TP SCH ×2 (09:13→21:44)
[2018-12-31] MEDS: BUPROPION HCL 75 MG TABLET PO SCH ×2 (09:13→17:57)
[2018-12-31] MEDS: MULTIVITAMINS W-IRON TABLET, CHEWABLE PO SCH (09:13)
[2018-12-31] MEDS: SITAGLIPTIN PHOSPHATE 50 MG TABLET PO SCH (09:13)
[2018-12-31] MEDS: CLOPIDOGREL BISULFATE 75 MG TABLET PO SCH (09:13)
[2018-12-31] MEDS: LISINOPRIL 5 MG TABLET PO SCH (09:13)
[2018-12-31] MEDS: FAMOTIDINE 20 MG TABLET PO SCH ×2 (09:13→21:54)
[2018-12-31] MEDS: ENOXAPARIN SODIUM INJ 40 MG/0.4 ML DISP.SYRIN SUBCUT SCH (09:13)
[2018-12-31 09:29] LABS: HEMATOCRIT 23.9 % (36.0-47.0); HEMOGLOBIN 8.2 g/dL (12.0-15.5); MEAN CORPUSCULAR HEMOGLOBIN 28.4 pg (27.0-33.4); MEAN CORPUSCULAR HGB CONC 34.4 g/dL (32.0-36.0); MEAN CORPUSCULAR VOLUME 82 fl (80-97); PLATELET COUNT 281 10^3/uL (150-450); RED CELL DISTRIBUTION WIDTH 16.3 % (11.5-14.0)
[2018-12-31 09:55] LABS: ANION GAP 11 (5-19); BLOOD UREA NITROGEN 17 mg/dL (7-20); CALCIUM 8.4 mg/dL (8.4-10.2); CARBON DIOXIDE 17 mmol/L (22-30); CHLORIDE 110 mmol/L (98-107); GLUCOSE 147 mg/dL (75-110); SODIUM 138.2 mmol/L (137-145)
[2018-12-31 13:15] LABS: APPEARANCE,URINE CLOUDY; BILIRUBIN,URINE NEGATIVE (NEGATIVE); COLOR,URINE YELLOW; GLUCOSE, URINE NEGATIVE (NEGATIVE); KETONES,URINE NEGATIVE (NEGATIVE); LEUKOCYTE ESTERASE,URINE LARGE (NEGATIVE); NITRITE,URINE NEGATIVE (NEGATIVE); PROTEIN,URINE NEGATIVE (NEGATIVE); URINE SPECIFIC GRAVITY 1.005; UROBILINOGEN,URINE NEGATIVE mg/dL (<2.0)
[2018-12-31 13:35] LABS: URINE CREATININE 26.3 mg/dL (15-278)
--- NOTE | 2018-12-31 14:05 | PDOC PROGRESS REPORT ---
Subjective Progress Note for:: 12/31/18 Subjective:: DUSTIN MALDONADO is a 58 year old female with past medical history of diabetes, hypertension, CVA without residual, peripheral neuropathy, dyslipidemia, COPD, iron deficiency anemia, anxiety, recurrent pyelonephritis and BKA November 09, 2018 who was admitted 12/22/2018 for sepsis secondary to right BKA surgical site infection. POD#1 Rt AKA Patient was seen on morning rounds. She was found resting in bed comfortably with room air. She was sleeping, but woke easily when I said her name, however, quickly falls back to sleep. She appears to be lethargic; but nursing notes that she was alert early this morning. She denies pain at present. She denies fever, chills, chest pain, palpitations, dyspnea, orthopnea, cough, abdominal pain, vomiting and diarrhea. No concerns per nursing. Reason For Visit: HYPERKALEMIA W T WAVE PEAK,R STUMP NECROSIS Physical Exam Vital Signs: Temp Pulse Resp BP Pulse Ox 98.2 F 86 16 148/64 H 99 12/31/18 07:38 12/31/18 07:38 12/31/18 07:38 12/31/18 07:38 12/31/18 07:38 Intake & Output 12/30/18 12/31/18 01/01/19 06:59 06:59 06:59 Intake Total 1475 3443 1000 Output Total 550 604 Balance 925 2839 1000 Weight 56 kg 56.1 kg General appearance: PRESENT: no acute distress, thin, well-developed, well- nourished Head exam: PRESENT: atraumatic, normocephalic Eye exam: PRESENT: conjunctiva pink, EOMI, PERRLA. ABSENT: scleral icterus Mouth exam: PRESENT: moist, tongue midline Neck exam: ABSENT: carotid bruit, JVD, lymphadenopathy, thyromegaly Respiratory exam: PRESENT: clear to auscultation roderick, symmetrical, unlabored. ABSENT: rales, rhonchi, wheezes Cardiovascular exam: PRESENT: RRR, +S1, +S2. ABSENT: diastolic murmur, rubs, systolic murmur Pulses: PRESENT: normal dorsalis pedis pul Vascular exam: PRESENT: normal capillary refill GI/Abdominal exam: PRESENT: normal bowel sounds, soft. ABSENT: distended, guarding, mass, organolmegaly, rebound, tenderness Rectal exam: PRESENT: deferred Extremities exam: PRESENT: other - Rt AKA. ABSENT: calf tenderness, clubbing, pedal edema Neurological exam: PRESENT: oriented to person, oriented to place, oriented to time, oriented to situation, CN II-XII grossly intact, other - lethargic. ABSENT: motor sensory deficit Psychiatric exam: PRESENT: appropriate affect, normal mood. ABSENT: homicidal ideation, suicidal ideation Skin exam: PRESENT: dry, intact, warm. ABSENT: cyanosis, rash Results Laboratory Results: 12/31/18 09:22 12/31/18 09:22 12/31/18 12/31/18 12/31/18 09:22 09:22 11:00 WBC 9.0 RBC 2.90 L Hgb 8.2 L Hct 23.9 L MCV 82 MCH 28.4 MCHC 34.4 RDW 16.3 H Plt Count 281 Sodium 138.2 Potassium 4.0 Chloride 110 H Carbon Dioxide 17 L Anion Gap 11 BUN 17 Creatinine 2.38 H Est GFR ( Amer) 25 L Est GFR (Non-Af Amer) 21 L Glucose 147 H Calcium 8.4 Urine Color YELLOW Urine Appearance CLOUDY Urine pH 5.0 Ur Specific [place] 1.005 Urine Protein NEGATIVE Urine Glucose (UA) NEGATIVE Urine Ketones NEGATIVE Urine Blood SMALL H Urine Nitrite NEGATIVE Ur Leukocyte Esterase LARGE H Urine WBC (Auto) >182 Urine RBC (Auto) 34 12/22/18 12/23/18 12/23/18 16:34 05:40 05:40 Creatine Kinase < 20 L < 20 L CK-MB (CK-2) < 0.22 Troponin I < 0.012 12/23/18 12/23/18 12/23/18 11:37 11:37 16:50 Creatine Kinase < 20 L < 20 L CK-MB (CK-2) < 0.22 Troponin I < 0.012 12/23/18 16:50 Creatine Kinase CK-MB (CK-2) < 0.22 Troponin I < 0.012 Impressions: Chest X-Ray 12/22/18 16:09 IMPRESSION: NO ACUTE FINDINGS. Tibia/Fibula X-Ray 12/22/18 16:10 IMPRESSION: Recent appearing right below-knee amputation without obvious evidence of bony erosion or sclerosis to suggest osteomyelitis. Soft tissue swelling of the stump. Abdomen X-Ray 12/23/18 04:33 IMPRESSION: 1. Right nephrolithiasis. 2. Otherwise nonspecific abdomen. Assessment and Plan - Diagnosis (1) Infection of right below knee amputation Is this a current diagnosis for this admission?: Yes Plan: Blood cultures are negative at 5 days. Wound culture positive for MRSA and E.coli Postop day #3 AKA. Patient was empirically placed on IV vancomycin and Zosyn; transitioned to p.o. Bactrim based on culture and sensitivity results yesterday. Surgery is consulted; wound care per their expertise. Discharge planning is consulted; SNF for short-term rehab versus home with home health services. Analgesics as needed. Physical therapy consultation. 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 Accu-Cheks every 6 hours with Humalog sliding scale coverage. 1/2 dose home dose lantus Hypoglycemia protocol. Consistent carb diet. Registered dietitian and medical educator consulted. (3) Hyperkalemia Is this a current diagnosis for this admission?: Yes Plan: Resolved. We will continue to monitor with daily chemistries. (4) Osteomyelitis Is this a current diagnosis for this admission?: Yes Plan: As above. (5) Iron deficiency anemia Qualifiers: Iron deficiency anemia type: unspecified iron deficiency Qualified Code(s): D50.9 - Iron deficiency anemia, unspecified Is this a current diagnosis for this admission?: Yes Plan: Multifactorial to include chronic disease and acute inflammation Daily multivitamin and ferrous sulfate supplementation. Registered dietitian is consulted. (6) Severe sepsis Is this a current diagnosis for this admission?: Yes Plan: Resolved Secondary to stump necrosis versus UTI (leuk esterase & WBC) Blood culture negative at 4 days Wound culture (+) MRSA and e.coli Urine culture grew <2000 colonies; UTI is ruled out. Patient was treated with IV vancomycin and cipro for wound infection and p.o. Macrobid for UTI. All discontinued. Has been transitioned to p.o. Bactrim for completion of antibiotic therapy. (7) UTI (urinary tract infection) Is this a current diagnosis for this admission?: Yes Plan: Ruled out. Urinalysis positive for UTI (leuk esterase & >182 WBC) Urine culture negative (8) Hypertension Qualifiers: Is this a current diagnosis for this admission?: Yes Plan: Continue home dose carvedilol, lisinopril IV hydralazine as needed for blood pressure control. Pain management as above. (9) Hypomagnesemia Is this a current diagnosis for this admission?: Yes Plan: Replete. (10) Anxiety Is this a current diagnosis for this admission?: Yes Plan: Continue home dose Wellbutrin. Continue BuSpar twice daily. Provide adequate analgesic. (11) PATT (acute kidney injury) Is this a current diagnosis for this admission?: Yes Plan: Multifactorial secondary to poor p.o. intake and multiple medications (Lasix, gabapentin, vancomycin) Creatining 0.54-> 0.92-> 1.97-> 2.38. Baseline 0.70 FeNA 4.5%; suggests post obstructive Nursing was unable to place Lopez; will reattempt CT ABD/Pelvis w/o contrast is pending. Gabapentin, Lasix, metformin on hold. Providing IV fluids. Vancomycin is discontinued. Continue daily chemistries. Nephrology is consulted. - Time Time Spent with patient: 35 or more minutes Medications reviewed and adjusted accordingly: Yes Anticipated discharge: Home with Homehealth
--- NOTE | 2018-12-31 15:34 | RADIOLOGY REPORT (SQ) ---
EXAM DESCRIPTION: CT ABD/PELVIS NO ORAL OR IV COMPLETED DATE/TIME: 12/31/2018 3:12 pm REASON FOR STUDY: PATT; decreased UOP. Renal protocol COMPARISON: 07/31/2018 TECHNIQUE: CT scan of the abdomen and pelvis performed without intravenous or oral contrast. Images reviewed with lung, soft tissue, and bone windows. Reconstructed coronal and sagittal MPR images revi ewed. All images stored on PACS. All CT scanners at this facility use dose modulation, iterative reconstruction, and/or weight based d osing when appropriate to reduce radiation dose to as low as reasonably achievable (ALARA). [facility]: Dose Right [facility]: CareDose [facility]: Dose Right [facility]: Teradose 4D [facility]: Smart [employer] Mobile RADIATION DOSE: CT Rad equipment meets quality standard of care and radiation dose reduction techniq ues were employed. CTDIvol: 5.7 mGy. DLP: 303 mGy-cm.mGy. LIMITATIONS: None. FINDINGS: LOWER CHEST: Trace right pleural effusion. NON-CONTRASTED LIVER, SPLEEN, ADRENALS: Evaluation limited by lack of IV contrast. No identified sign ificant masses. PANCREAS: No masses. No peripancreatic inflammatory changes. GALLBLADDER: No identified stones by CT criteria. No inflammatory changes to suggest cholecystitis. RIGHT KIDNEY AND URETER: No suspicious masses. Assessment limited by lack of IV contrast. 6 mm ston e lower pole. No hydronephrosis or hydroureter. LEFT KIDNEY AND URETER: No suspicious masses. Assessment limited by lack of IV contrast. No signifi cant calcifications. No hydronephrosis or hydroureter. AORTA AND RETROPERITONEUM: No aneurysm. No retroperitoneal masses or adenopathy. BOWEL AND PERITONEAL CAVITY: Diffuse diverticulosis. No obvious masses or inflammatory changes. No f ree fluid. APPENDIX: Not visualized. PELVIS, BLADDER, AND ABDOMINAL WALL:No abnormal masses. No free fluid. Bladder normal. BONES: Nothing acute. OTHER: No other significant finding. IMPRESSION: No acute findings. Nonobstructing stone right kidney. Diverticulosis. COMMENT: Quality ID # [id number]: Final reports with documentation of one or more dose reduction techniques (e.g., Automated exposure control, adjustment of the mA and/or kV according to patient size, use of iterative reconstruction technique) TECHNICAL DOCUMENTATION: JOB ID: [id number] [employer]- All Rights Reserved Reading location - IP/workstation name: [facility]
[2018-12-31] MEDS ORDERED: SULFAMETHOXAZOLE/TRIMETHOPRIM 800-160 MG TABLET PO SCH (18:00)
--- NOTE | 2018-12-31 19:55 | PDOC CONSULTATION ---
Consultation Consult Date: 12/31/18 Consult reason:: PATT History of Present Illness Admission Date/PCP: 12/22/18 19:31 KATT RAMSEY PA-C History of Present Illness: DUSTIN MALDONADO is a 58 year old female with past medical history of complicated diabetes with peripheral neuropathy, retinopathy but no CKD, hypertension, dyslipidemia, COPD, iron deficiency anemia, anxiety, recurrent pyelonephritis and BKA November 09, 2018. She was readmitted this time with history of postoperative infection of BKA stump and underwent right AKA on 12/29/[address] Morin.She had normal renal functions during the last admission as well as during her admission this time. On 12/29 creatinine was 0.9, CO2 24 and on 6 creatinine was 1.9 and CO2 was 20 and on 7 creatinine was 2.3 and CO2 of 17. Her Vanco levels on 430 was 11.5 and on 5 7 was 26.5. Obviously her vancomycin levels has been discontinued and she was begun on Bactrim DS for her wound cultures which has grown MRSA/E. coli. Past Medical History Cardiac Medical History: Reports: Hyperlipidemia, Hypertension-primary Pulmonary Medical History: Reports: Asthma Endocrine Medical History: Reports: Diabetes Mellitus Type 2 Musculoskeltal Medical History: Reports: Arthritis Psychiatric Medical History: Reports: Depression Past Surgical History Past Surgical History: Reports: Section, Orthopedic Surgery, Vascular Surgery - Angio Social History Lives with: Family Smoking Status: Former Smoker Frequency of Alcohol Use: None Hx Recreational Drug Use: Yes Drugs: None Hx Prescription Drug Abuse: No - Advance Directive Resuscitation Status: Full Code Family History Parental Family History Reviewed: No Children Family History Reviewed: No Sibling(s) Family History Reviewed.: No Medication/Allergy Home Medications: Albuterol Sulfate [Proair HFA Inhalation Aerosol 8.5 gm MDI] 2 puff IH Q6HP PRN 11/06/18 Bupropion HCl [Bupropion Xl] 150 mg PO QAM 11/06/18 Carvedilol [Coreg 12.5 mg Tablet] 12.5 mg PO Q12 11/06/18 Celecoxib [Celebrex 100 mg Capsule] 100 mg PO DAILY 11/06/18 Clopidogrel Bisulfate [Plavix 75 mg Tablet] 75 mg PO DAILY 11/06/18 Furosemide [Lasix 20 mg Tablet] 20 mg PO DAILY 11/06/18 Gabapentin [Neurontin 300 mg Capsule] 300 mg PO Q8 11/06/18 Lisinopril [Prinivil 5 mg Tablet] 5 mg PO DAILY 11/06/18 Mometasone/Formoterol [Dulera 100 Mcg/5 Mcg Inhaler] 2 puff IH BID 11/06/18 Montelukast Sodium [Singulair 10 mg Tablet] 10 mg PO QHS 11/06/18 Sitagliptin Phosphate [Januvia] 100 mg PO DAILY 11/06/18 Melatonin [Melatonin 5 mg Tablet] 10 mg PO QHS tablet 11/14/18 Metformin HCl [Glucophage 500 mg Tablet] 500 mg PO BIDACBS tablet 11/14/18 Atorvastatin Calcium [Lipitor 80 mg Tablet] 80 mg PO QHS 12/23/18 Buspirone HCl [Buspar 15 mg Tablet] 7.5 mg PO Q12HP PRN 12/23/18 Insulin Glargine,Hum.rec.anlog [Lantus Insulin 100 Unit/1 ml 10 ml] 10 unit SUBCUT QHS 12/23/18 Meclizine HCl [Antivert 25 mg Tablet] 25 mg PO TIDP PRN MDD FILLED 12/18 FOR 10 DAY SUPPLY 12/23/18 Oxycodone HCl [Oxy-Ir 5 mg Tablet] 5 mg PO Q8HP PRN MDD FILLED 12/18 FOR 7 DAY SUPPLY 12/23/18 Allergies/Adverse Reactions: No Known Allergies Allergy (Verified 11/05/18 18:18) Review of Systems Constitutional: PRESENT: fatigue. ABSENT: fever(s), headache(s), night sweats, weakness Nose, Mouth, and Throat: ABSENT: mouth pain, sore throat Cardiovascular: ABSENT: dyspnea on exertion, edema, orthropnea, palpitations Respiratory: ABSENT: cough, dyspnea Gastrointestinal: ABSENT: constipation, diarrhea, dysphagia, heartburn, hematemesis, hematochezia Genitourinary: ABSENT: dysuria, hematuria Integumentary: ABSENT: lesions, pruritus, rash Neurological: ABSENT: abnormal gait, abnormal movements, abnormal speech, confusion, convulsions, focal weakness, frequent falls, lack of coordination Hematologic/Lymphatic: ABSENT: easy bleeding, easy bruising, lymphadenopathy Physical Exam Vital Signs: Temp Pulse Resp BP Pulse Ox 99.0 F 85 14 146/57 H 100 12/31/18 16:55 12/31/18 16:55 12/31/18 16:55 12/31/18 16:55 12/31/18 16:55 Intake & Output 12/30/18 12/31/18 01/01/19 06:59 06:59 06:59 Intake Total 1475 3443 1500 Output Total 550 604 Balance 925 3509 1500 Weight 56 kg 56.1 kg General appearance: PRESENT: no acute distress Eye exam: PRESENT: EOMI, PERRLA Ear exam: PRESENT: normal external ear exam Mouth exam: PRESENT: moist, neck supple Neck exam: ABSENT: lymphadenopathy, meningismus, tenderness, thyromegaly, tracheal deviation Respiratory exam: PRESENT: clear to auscultation roderick. ABSENT: crackles Cardiovascular exam: PRESENT: +S1, +S2 GI/Abdominal exam: PRESENT: normal bowel sounds, soft. ABSENT: organomegaly, tenderness Extremities exam: ABSENT: +1 edema Neurological exam: PRESENT: alert, awake, oriented to person, oriented to place, oriented to time Psychiatric exam: PRESENT: appropriate affect Skin exam: ABSENT: cyanosis, erythema, mottled, petechiae, rash Results Laboratory Results: 12/31/18 09:22 12/31/18 09:22 12/31/18 12/31/18 12/31/18 09:22 09:22 11:00 WBC 9.0 RBC 2.90 L Hgb 8.2 L Hct 23.9 L MCV 82 MCH 28.4 MCHC 34.4 RDW 16.3 H Plt Count 281 Sodium 138.2 Potassium 4.0 Chloride 110 H Carbon Dioxide 17 L Anion Gap 11 BUN 17 Creatinine 2.38 H Est GFR ( Amer) 25 L Est GFR (Non-Af Amer) 21 L Glucose 147 H Calcium 8.4 Urine Color YELLOW Urine Appearance CLOUDY Urine pH 5.0 Ur Specific [place] 1.005 Urine Protein NEGATIVE Urine Glucose (UA) NEGATIVE Urine Ketones NEGATIVE Urine Blood SMALL H Urine Nitrite NEGATIVE Ur Leukocyte Esterase LARGE H Urine WBC (Auto) >182 Urine RBC (Auto) 34 12/22/18 12/23/18 12/23/18 16:34 05:40 05:40 Creatine Kinase < 20 L < 20 L CK-MB (CK-2) < 0.22 Troponin I < 0.012 12/23/18 12/23/18 12/23/18 11:37 11:37 16:50 Creatine Kinase < 20 L < 20 L CK-MB (CK-2) < 0.22 Troponin I < 0.012 12/23/18 16:50 Creatine Kinase CK-MB (CK-2) < 0.22 Troponin I < 0.012 Impressions: Chest X-Ray 12/22/18 16:09 IMPRESSION: NO ACUTE FINDINGS. Tibia/Fibula X-Ray 12/22/18 16:10 IMPRESSION: Recent appearing right below-knee amputation without obvious evidence of bony erosion or sclerosis to suggest osteomyelitis. Soft tissue swelling of the stump. Abdomen X-Ray 12/23/18 04:33 IMPRESSION: 1. Right nephrolithiasis. 2. Otherwise nonspecific abdomen. Abdomen/Pelvis CT 12/31/18 00:00 IMPRESSION: No acute findings. Nonobstructing stone right kidney. Diverticulosis. Assessment & Plan - Diagnosis (1) PATT (acute kidney injury) Is this a current diagnosis for this admission?: Yes Plan: I believe her PATT at this time is a combination of factors which includes possible sepsis/ATN, Vanc toxicity and has been compounded by using Bactrim. I am going to continue on gentle hydration with IV fluids followed by discontinuation of Bactrim and instead we will start her on a combination of clindamycin and ciprofloxacin that should should cover both MRSA and E. coli based on sensitivities.She also has a history of recurrent UTIs which I believe is possibly secondary to possible neurogenic bladder. A Lopez catheter was tried to be introduced but had difficulties negotiating. She is currently urinating well and I reviewed the CT scan which did not show any obstructive features. I will keep a close eye on this. (2) Infection of right below knee amputation Is this a current diagnosis for this admission?: Yes Plan: HAs done well postoperative on right AKA and today is postop day 3. Wound looks clean without any signs of obvious infections. (3) Recurrent UTI Plan: As mentioned earlier. (4) Diabetes Qualifiers: Diabetes mellitus type: type 2 Diabetes mellitus long term care social worker insulin use: with usp use Is this a current diagnosis for this admission?: Yes Plan: Poorly controlled which is one of the reasons for her recurrent UTI. Advised her for the need for for tight blood sugar control as she has already got a complicated course of diabetes and is very likely especially since she has got retinopathy that her kidneys will be affected if she does not get her act together. (5) Hypertension Qualifiers: Is this a current diagnosis for this admission?: Yes Plan: Monitor and titrate medications accordingly. (6) Hyponatremia Plan: Currently stable. Monitor. (7) Right nephrolithiasis Plan: Nonobstructive and not an issue for her current issues.
[2018-12-31] MEDS: INSULIN GLARGINE,HUM.REC.ANLOG 1,000 UNIT/10 ML VIAL SUBCUT SCH (21:49)
[2018-12-31] MEDS: MELATONIN 5 MG TABLET PO SCH (21:53)
[2018-12-31] MEDS: MONTELUKAST SODIUM 10 MG TABLET PO SCH (21:53)
[2018-12-31] MEDS: CLINDAMYCIN HCL 150 MG CAPSULE PO SCH (21:53)
[2018-12-31] MEDS: CIPROFLOXACIN HCL 500 MG TABLET PO SCH (21:54)
[2019-01-01] MEDS: OXYCODONE-ACETAMINOPHEN 5-325 MG TABLET PO PRN ×3 (01:00→20:44)
[2019-01-01] MEDS: NORMAL SALINE 1000 ML 1,000 ML IV PRN ×3 (03:13→20:45)
[2019-01-01] MEDS: CLINDAMYCIN HCL 150 MG CAPSULE PO SCH ×3 (05:39→21:57)
[2019-01-01 06:37] LABS: ANION GAP 11 (5-19); BLOOD UREA NITROGEN 20 mg/dL (7-20); CALCIUM 8.4 mg/dL (8.4-10.2); CARBON DIOXIDE 16 mmol/L (22-30); CHLORIDE 114 mmol/L (98-107); GLUCOSE 97 mg/dL (75-110); POTASSIUM 3.7 mmol/L (3.6-5.0); SODIUM 141.1 mmol/L (137-145)
[2019-01-01] MEDS: INSULIN LISPRO 100 UNIT/ML 3 ML VIAL SUBCUT SCH ×2 (10:07→13:18)
[2019-01-01] MEDS: FAMOTIDINE 20 MG TABLET PO SCH ×2 (10:11→21:58)
[2019-01-01] MEDS: SITAGLIPTIN PHOSPHATE 50 MG TABLET PO SCH (10:11)
[2019-01-01] MEDS: CLOPIDOGREL BISULFATE 75 MG TABLET PO SCH (10:11)
[2019-01-01] MEDS: BUSPIRONE HCL 10 MG TABLET PO SCH ×2 (10:11→21:59)
[2019-01-01] MEDS: FERROUS SULFATE 325 MG TABLET PO SCH (10:12)
[2019-01-01] MEDS: FLUTICASONE/VILANTEROL 100-25 MCG/DOSE IH SCH (10:12)
[2019-01-01] MEDS: ENOXAPARIN SODIUM INJ 40 MG/0.4 ML DISP.SYRIN SUBCUT SCH (10:12)
[2019-01-01] MEDS: DOCUSATE SODIUM 100 MG CAPSULE PO SCH (10:12)
[2019-01-01] MEDS: CARVEDILOL 12.5 MG TABLET PO SCH ×2 (10:12→21:58)
[2019-01-01] MEDS: CIPROFLOXACIN HCL 500 MG TABLET PO SCH ×2 (10:13→21:59)
[2019-01-01] MEDS: COLLAGENASE CLOSTRIDIUM HIST. OINT 30 GM TP SCH ×2 (10:14→22:08)
[2019-01-01] MEDS: MULTIVITAMINS W-IRON TABLET, CHEWABLE PO SCH (10:14)
[2019-01-01] MEDS: BUPROPION HCL 75 MG TABLET PO SCH (10:14)
--- NOTE | 2019-01-01 14:44 | PDOC PROGRESS REPORT ---
Subjective Progress Note for:: 01/01/19 Reason For Visit: Patient seen today. She generally feeling better. She is urinating on her own after the initial difficulty that happened to introduce a Lopez catheter. She denies any history of chest pain, shortness of breath or abdominal pains.The labs and medications were reviewed with the patient.Renal numbers are improving. Physical Exam Vital Signs: Temp Pulse Resp BP Pulse Ox 99.0 F 84 16 147/61 H 100 01/01/19 11:16 01/01/19 14:00 01/01/19 11:16 01/01/19 11:16 01/01/19 11:16 Intake & Output 12/31/18 01/01/19 01/02/19 06:59 06:59 06:59 Intake Total 3443 4050 1118 Output Total 604 850 300 Balance 2839 3200 818 Weight 56.1 kg 56 kg General appearance: PRESENT: no acute distress Respiratory exam: PRESENT: clear to auscultation roderick. ABSENT: crackles Cardiovascular exam: PRESENT: +S1, +S2 GI/Abdominal exam: PRESENT: normal bowel sounds, soft. ABSENT: organomegaly, tenderness Extremities exam: ABSENT: pedal edema Neurological exam: PRESENT: alert, awake, oriented to person, oriented to place Results Laboratory Results: 12/31/18 09:22 01/01/19 05:05 01/01/19 05:05 Sodium 141.1 Potassium 3.7 Chloride 114 H Carbon Dioxide 16 L Anion Gap 11 BUN 20 Creatinine 2.12 H Est GFR ( Amer) 29 L Est GFR (Non-Af Amer) 24 L Glucose 97 Calcium 8.4 12/22/18 12/23/18 12/23/18 16:34 05:40 05:40 Creatine Kinase < 20 L < 20 L CK-MB (CK-2) < 0.22 Troponin I < 0.012 12/23/18 12/23/18 12/23/18 11:37 11:37 16:50 Creatine Kinase < 20 L < 20 L CK-MB (CK-2) < 0.22 Troponin I < 0.012 12/23/18 16:50 Creatine Kinase CK-MB (CK-2) < 0.22 Troponin I < 0.012 Impressions: Chest X-Ray 12/22/18 16:09 IMPRESSION: NO ACUTE FINDINGS. Tibia/Fibula X-Ray 12/22/18 16:10 IMPRESSION: Recent appearing right below-knee amputation without obvious evidence of bony erosion or sclerosis to suggest osteomyelitis. Soft tissue swelling of the stump. Abdomen X-Ray 12/23/18 04:33 IMPRESSION: 1. Right nephrolithiasis. 2. Otherwise nonspecific abdomen. Abdomen/Pelvis CT 12/31/18 00:00 IMPRESSION: No acute findings. Nonobstructing stone right kidney. Diverticulosis. Assessment & Plan - Diagnosis (1) PATT (acute kidney injury) Is this a current diagnosis for this admission?: Yes Plan: Nonoliguric.Renal numbers are improving. Continue current lines of management. (2) Infection of right below knee amputation Is this a current diagnosis for this admission?: Yes Plan: Revision of previous BKA to AKA and healing nicely. (3) Recurrent UTI Plan: Currently stable. Monitor. 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 Advised the need for tight control now and for the future. (5) Hypertension Qualifiers: Is this a current diagnosis for this admission?: Yes Plan: Stable. Monitor. (6) Hyponatremia Plan: Resolved. Continue current lines of management. No changes. (7) Right nephrolithiasis Plan: Quiescent. Nonobstructive. (8) Metabolic acidosis and hyperglycemia Plan: Monitor. Might need sodium bicarbonate if she is not improving over the next day or so.
--- NOTE | 2019-01-01 15:27 | PDOC PROGRESS REPORT ---
Subjective Progress Note for:: 01/01/19 Subjective:: DUSTIN MALDONADO is a 58 year old female with past medical history of diabetes, hypertension, CVA without residual, peripheral neuropathy, dyslipidemia, COPD, iron deficiency anemia, anxiety, recurrent pyelonephritis and BKA November 09, 2018 who was admitted 12/22/2018 for sepsis secondary to right BKA surgical site infection; now postop right AKA Patient was seen on morning rounds with mother and niece present. She was found resting in bed comfortably with room air. She is awake, alert and oriented x4. She does appear to have slight forgetfulness/confusion, although is much more alert and oriented than yesterday. Overall, she reports that she is feeling well; denies pain at present. She denies fever, chills, chest pain, palpitations, dyspnea, orthopnea, cough, abdominal pain, vomiting and diarrhea. She is looking forward to discharge to home within the next 1 to 2 days; confirms her intent to go home with home health services. She has no questions or concerns at this time. No concerns per nursing. Reason For Visit: HYPERKALEMIA W T WAVE PEAK,R STUMP NECROSIS Physical Exam Vital Signs: Temp Pulse Resp BP Pulse Ox 99.0 F 84 16 147/61 H 100 01/01/19 11:16 01/01/19 14:00 01/01/19 11:16 01/01/19 11:16 01/01/19 11:16 Intake & Output 12/31/18 01/01/19 01/02/19 06:59 06:59 06:59 Intake Total 3443 4050 1118 Output Total 604 850 300 Balance 2839 3200 818 Weight 56.1 kg 56 kg General appearance: PRESENT: no acute distress, cooperative, thin, well- developed Head exam: PRESENT: atraumatic, normocephalic Eye exam: PRESENT: conjunctiva pink, EOMI, PERRLA. ABSENT: scleral icterus Mouth exam: PRESENT: moist, tongue midline Teeth exam: PRESENT: poor dentation Neck exam: ABSENT: carotid bruit, JVD, lymphadenopathy, thyromegaly Respiratory exam: PRESENT: clear to auscultation roderick, symmetrical, unlabored. ABSENT: rales, rhonchi, wheezes Cardiovascular exam: PRESENT: RRR, +S1, +S2. ABSENT: diastolic murmur, rubs, systolic murmur Pulses: PRESENT: normal dorsalis pedis pul Vascular exam: PRESENT: normal capillary refill GI/Abdominal exam: PRESENT: normal bowel sounds, soft. ABSENT: distended, guarding, mass, organolmegaly, rebound, tenderness Rectal exam: PRESENT: deferred Extremities exam: PRESENT: full ROM, other - Right AKA. ABSENT: calf tenderness, clubbing, pedal edema Neurological exam: PRESENT: alert, awake, oriented to person, oriented to place, oriented to time, oriented to situation, CN II-XII grossly intact, other - Slight forgetfulness. ABSENT: motor sensory deficit Psychiatric exam: PRESENT: appropriate affect, normal mood. ABSENT: homicidal ideation, suicidal ideation Skin exam: PRESENT: dry, intact, warm. ABSENT: cyanosis, rash Results Laboratory Results: 12/31/18 09:22 01/01/19 05:05 01/01/19 05:05 Sodium 141.1 Potassium 3.7 Chloride 114 H Carbon Dioxide 16 L Anion Gap 11 BUN 20 Creatinine 2.12 H Est GFR ( Amer) 29 L Est GFR (Non-Af Amer) 24 L Glucose 97 Calcium 8.4 12/22/18 12/23/18 12/23/18 16:34 05:40 05:40 Creatine Kinase < 20 L < 20 L CK-MB (CK-2) < 0.22 Troponin I < 0.012 12/23/18 12/23/18 12/23/18 11:37 11:37 16:50 Creatine Kinase < 20 L < 20 L CK-MB (CK-2) < 0.22 Troponin I < 0.012 12/23/18 16:50 Creatine Kinase CK-MB (CK-2) < 0.22 Troponin I < 0.012 Impressions: Chest X-Ray 12/22/18 16:09 IMPRESSION: NO ACUTE FINDINGS. Tibia/Fibula X-Ray 12/22/18 16:10 IMPRESSION: Recent appearing right below-knee amputation without obvious evidence of bony erosion or sclerosis to suggest osteomyelitis. Soft tissue swelling of the stump. Abdomen X-Ray 12/23/18 04:33 IMPRESSION: 1. Right nephrolithiasis. 2. Otherwise nonspecific abdomen. Abdomen/Pelvis CT 12/31/18 00:00 IMPRESSION: No acute findings. Nonobstructing stone right kidney. Diverticulosis. Assessment and Plan - Diagnosis (1) Infection of right below knee amputation Is this a current diagnosis for this admission?: Yes Plan: Blood cultures are negative at 5 days. Wound culture positive for MRSA and E.coli Postop day #4 AKA. Patient was empirically placed on IV vancomycin and Zosyn; transitioned to p.o. Bactrim yesterday. However, due to PATT, patient is transitioned again Clinda mycin and ciprofloxacin. Surgery is consulted; wound care per their expertise. Discharge planning is consulted; SNF for short-term rehab versus home with home health services. Analgesics as needed. Physical therapy consultation. 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 Accu-Cheks every 6 hours with Humalog sliding scale coverage. 1/2 dose home dose lantus Hypoglycemia protocol. Consistent carb diet. Registered dietitian and breastfeeding educator consulted. (3) Osteomyelitis Is this a current diagnosis for this admission?: Yes Plan: As above. (4) Iron deficiency anemia Qualifiers: Iron deficiency anemia type: unspecified iron deficiency Qualified Code(s): D50.9 - Iron deficiency anemia, unspecified Is this a current diagnosis for this admission?: Yes Plan: Multifactorial to include chronic disease and acute inflammation Daily multivitamin and ferrous sulfate supplementation. Registered dietitian is consulted. (5) Severe sepsis Is this a current diagnosis for this admission?: Yes Plan: Resolved Secondary to stump necrosis versus UTI (leuk esterase & WBC) Blood culture negative at 4 days Wound culture (+) MRSA and e.coli Urine culture grew <2000 colonies; UTI is ruled out. Patient was treated with IV vancomycin and cipro for wound infection and p.o. Macrobid for UTI. All discontinued. Received 1 day of Bactrim; discontinued secondary to PATT. Started on clindamycin and ciprofloxacin yesterday. (6) UTI (urinary tract infection) Is this a current diagnosis for this admission?: Yes Plan: Ruled out. Urinalysis positive for UTI (leuk esterase & >182 WBC) Urine culture negative (7) Hypertension Qualifiers: Is this a current diagnosis for this admission?: Yes Plan: Continue home dose carvedilol, lisinopril IV hydralazine as needed for blood pressure control. Pain management as above. (8) Hypomagnesemia Is this a current diagnosis for this admission?: Yes Plan: Replete. (9) Anxiety Is this a current diagnosis for this admission?: Yes Plan: Continue home dose Wellbutrin. Continue BuSpar twice daily. Provide adequate analgesic. (10) PATT (acute kidney injury) Is this a current diagnosis for this admission?: Yes Plan: Slight improvement today Multifactorial secondary to sepsis, poor p.o. intake and multiple medications (Lasix, gabapentin, vancomycin) Creatining 0.54-> 0.92-> 1.97-> 2.38-> 2.12. Baseline 0.70 FeNA 4.5%; suggested post obstructive CT abdomen/pelvis was benign; no evidence of hydronephrosis, obstruction, or urinary retention. Nursing was unable to place Lopez; monitoring urine output with bladder scans every 6 hours. Gabapentin, Lasix, metformin on hold. Providing IV fluids. Vancomycin and Bactrim are discontinued. Continue daily chemistries. Nephrology is consulted; appreciate Dr. Khan's assistance. (11) Hyperkalemia Is this a current diagnosis for this admission?: Yes Plan: Resolved. We will continue to monitor with daily chemistries. - Time Time Spent with patient: 25-34 minutes Medications reviewed and adjusted accordingly: Yes Anticipated discharge: Home with Homehealth Within: within 48 hours
[2019-01-01] MEDS: MONTELUKAST SODIUM 10 MG TABLET PO SCH (21:58)
[2019-01-01] MEDS: MELATONIN 5 MG TABLET PO SCH (21:58)
[2019-01-01] MEDS: INSULIN GLARGINE,HUM.REC.ANLOG 1,000 UNIT/10 ML VIAL SUBCUT SCH (22:00)
[2019-01-02] MEDS: OXYCODONE-ACETAMINOPHEN 5-325 MG TABLET PO PRN ×3 (05:28→21:35)
[2019-01-02] MEDS: CLINDAMYCIN HCL 150 MG CAPSULE PO SCH ×3 (05:29→21:35)
[2019-01-02] MEDS: ENOXAPARIN SODIUM INJ 30 MG/0.3 ML DISP.SYRIN SUBCUT SCH ×2 (10:00→11:18)
[2019-01-02] MEDS: INSULIN LISPRO 100 UNIT/ML 3 ML VIAL SUBCUT SCH ×4 (10:42→18:15)
[2019-01-02] MEDS: DOCUSATE SODIUM 100 MG CAPSULE PO SCH ×3 (10:46→18:16)
[2019-01-02] MEDS: BUPROPION HCL 75 MG TABLET PO SCH ×3 (10:46→18:16)
[2019-01-02] MEDS: FERROUS SULFATE 325 MG TABLET PO SCH ×3 (10:47→18:14)
[2019-01-02] MEDS: COLLAGENASE CLOSTRIDIUM HIST. OINT 30 GM TP SCH ×2 (10:48→21:37)
[2019-01-02] MEDS: SITAGLIPTIN PHOSPHATE 50 MG TABLET PO SCH (11:16)
[2019-01-02] MEDS: FAMOTIDINE 20 MG TABLET PO SCH (11:16)
[2019-01-02] MEDS: BUSPIRONE HCL 10 MG TABLET PO SCH ×2 (11:16→21:34)
[2019-01-02] MEDS: CARVEDILOL 12.5 MG TABLET PO SCH ×2 (11:16→21:34)
[2019-01-02] MEDS: CLOPIDOGREL BISULFATE 75 MG TABLET PO SCH (11:16)
[2019-01-02] MEDS: FLUTICASONE/VILANTEROL 100-25 MCG/DOSE IH SCH (11:17)
[2019-01-02] MEDS: MULTIVITAMINS W-IRON TABLET, CHEWABLE PO SCH (11:18)
[2019-01-02] MEDS: CIPROFLOXACIN HCL 500 MG TABLET PO SCH ×2 (11:18→21:36)
[2019-01-02 11:43] LABS: ANION GAP 10 (5-19); BLOOD UREA NITROGEN 13 mg/dL (7-20); CALCIUM 8.5 mg/dL (8.4-10.2); CARBON DIOXIDE 18 mmol/L (22-30); CHLORIDE 112 mmol/L (98-107); GLUCOSE 130 mg/dL (75-110); POTASSIUM 3.4 mmol/L (3.6-5.0)
--- NOTE | 2019-01-02 13:09 | PDOC PROGRESS REPORT ---
Subjective Progress Note for:: 01/02/19 Subjective:: DUSTIN MALDONADO is a 58 year old female with past medical history of diabetes, hypertension, CVA without residual, peripheral neuropathy, dyslipidemia, COPD, iron deficiency anemia, anxiety, recurrent pyelonephritis and BKA November 09, 2018 who was admitted 12/22/2018 for sepsis secondary to right BKA surgical site infection; now postop right AKA Patient was seen on afternoon rounds. She was found resting in bed comfortably with room air; eating her lunch. She is awake, alert and oriented x4. She denies pain at present; becomes tearful when I mention that I need to keep her as her kidney function is not improved. She becomes somewhat agitated and indicates a bedpan; stating "I'm using that all the time." She expresses frustration w/ nursing staff and mentions going AMA. She calms quickly when offered to be moved to another floor for a fresh start (patient is medically appropriate to downgrade). She denies fever, chills, chest pain, palpitations, dyspnea, orthopnea, cough, abdominal pain, vomiting and diarrhea. No concerns per nursing. Reason For Visit: HYPERKALEMIA W T WAVE PEAK,R STUMP NECROSIS Physical Exam Vital Signs: Temp Pulse Resp BP Pulse Ox 99.2 F 90 15 154/70 H 100 01/02/19 11:38 01/02/19 11:38 01/02/19 11:38 01/02/19 11:38 01/02/19 11:38 Intake & Output 01/01/19 01/02/19 01/03/19 06:59 06:59 06:59 Intake Total 4050 3018 Output Total 850 1550 Balance 3200 1468 Weight 56 kg 58.4 kg General appearance: PRESENT: no acute distress, thin, well-developed Head exam: PRESENT: atraumatic, normocephalic Eye exam: PRESENT: conjunctiva pink, EOMI, PERRLA. ABSENT: scleral icterus Mouth exam: PRESENT: moist, tongue midline Teeth exam: PRESENT: poor dentation Neck exam: ABSENT: carotid bruit, JVD, lymphadenopathy, thyromegaly Respiratory exam: PRESENT: clear to auscultation roderick, unlabored. ABSENT: rales, rhonchi, wheezes Cardiovascular exam: PRESENT: RRR, +S1, +S2. ABSENT: diastolic murmur, rubs, systolic murmur Pulses: PRESENT: normal dorsalis pedis pul Vascular exam: PRESENT: normal capillary refill GI/Abdominal exam: PRESENT: normal bowel sounds, soft. ABSENT: distended, guarding, mass, organolmegaly, rebound, tenderness Rectal exam: PRESENT: deferred Extremities exam: PRESENT: full ROM, other - Rt AKA. ABSENT: calf tenderness, clubbing, pedal edema Neurological exam: PRESENT: alert, awake, oriented to person, oriented to place, oriented to time, oriented to situation, CN II-XII grossly intact. ABSENT: motor sensory deficit Psychiatric exam: PRESENT: agitated. ABSENT: homicidal ideation, suicidal ideation Skin exam: PRESENT: dry, warm. ABSENT: cyanosis, rash Results Laboratory Results: 12/31/18 09:22 01/02/19 10:55 01/02/19 10:55 Sodium 140.0 Potassium 3.4 L Chloride 112 H Carbon Dioxide 18 L Anion Gap 10 BUN 13 Creatinine 1.95 H Est GFR ( Amer) 32 L Est GFR (Non-Af Amer) 26 L Glucose 130 H Calcium 8.5 12/22/18 12/23/18 12/23/18 16:34 05:40 05:40 Creatine Kinase < 20 L < 20 L CK-MB (CK-2) < 0.22 Troponin I < 0.012 12/23/18 12/23/18 12/23/18 11:37 11:37 16:50 Creatine Kinase < 20 L < 20 L CK-MB (CK-2) < 0.22 Troponin I < 0.012 12/23/18 16:50 Creatine Kinase CK-MB (CK-2) < 0.22 Troponin I < 0.012 Impressions: Chest X-Ray 12/22/18 16:09 IMPRESSION: NO ACUTE FINDINGS. Tibia/Fibula X-Ray 12/22/18 16:10 IMPRESSION: Recent appearing right below-knee amputation without obvious evidence of bony erosion or sclerosis to suggest osteomyelitis. Soft tissue swelling of the stump. Abdomen X-Ray 12/23/18 04:33 IMPRESSION: 1. Right nephrolithiasis. 2. Otherwise nonspecific abdomen. Abdomen/Pelvis CT 12/31/18 00:00 IMPRESSION: No acute findings. Nonobstructing stone right kidney. Diverticulosis. Assessment and Plan - Diagnosis (1) Infection of right below knee amputation Is this a current diagnosis for this admission?: Yes Plan: Blood cultures are negative at 5 days. Wound culture positive for MRSA and E.coli Postop day #5 AKA. Patient was empirically placed on IV vancomycin and Zosyn; transitioned to p.o. Clindamycin and ciprofloxacin. Surgery is consulted; wound care per their expertise. Discharge planning is consulted; SNF for short-term rehab versus home with home health services. Analgesics as needed. Physical therapy consultation. OOB three times daily for meals. (2) Diabetes Qualifiers: Diabetes mellitus type: type 2 Diabetes mellitus shelter insulin use: with shelter use Is this a current diagnosis for this admission?: Yes Plan: PMH DM type 2, well controlled with A1c of 6.1%. Accu-Cheks before meals and at bedtime with Humalog sliding scale coverage. 1/2 dose home dose lantus Hypoglycemia protocol. Consistent carb diet. Registered dietitian and ems educator consulted. (3) Osteomyelitis Is this a current diagnosis for this admission?: Yes Plan: As above. (4) Iron deficiency anemia Qualifiers: Iron deficiency anemia type: unspecified iron deficiency Qualified Code(s): D50.9 - Iron deficiency anemia, unspecified Is this a current diagnosis for this admission?: Yes Plan: Multifactorial to include chronic disease and acute inflammation Daily multivitamin and ferrous sulfate supplementation. Registered dietitian is consulted. (5) Severe sepsis Is this a current diagnosis for this admission?: Yes Plan: Resolved Secondary to stump necrosis versus UTI (leuk esterase & WBC) Blood culture negative at 5 days Wound culture (+) MRSA and e.coli Urine culture grew <2000 colonies; UTI is ruled out. Patient was treated with IV vancomycin and cipro for wound infection and p.o. Macrobid for UTI. All discontinued. Received 1 day of Bactrim; discontinued secondary to PATT. Started on clindamycin and ciprofloxacin. (6) UTI (urinary tract infection) Is this a current diagnosis for this admission?: Yes Plan: Ruled out. Urinalysis positive for UTI (leuk esterase & >182 WBC) Initial urine culture negative (<2000, colony count) Repeat urinalysis suggestive of UTI; culture pending. Antibiotics as above. (7) Hypertension Qualifiers: Is this a current diagnosis for this admission?: Yes Plan: Continue home dose carvedilol Lisinopril currently on hold secondary to PATT. IV hydralazine as needed for blood pressure control. Pain management as above. (8) Hypomagnesemia Is this a current diagnosis for this admission?: Yes Plan: Replete. (9) Anxiety Is this a current diagnosis for this admission?: Yes Plan: Continue home dose Wellbutrin. Continue BuSpar twice daily. Provide adequate analgesic. (10) PATT (acute kidney injury) Is this a current diagnosis for this admission?: Yes Plan: Continued small improvements today Multifactorial secondary to sepsis, poor p.o. intake and multiple medications (Lasix, gabapentin, vancomycin) Creatining 0.54-> 0.92-> 1.97-> 2.38-> 2.12-> 1.95. Baseline 0.70 FeNA 4.5%; suggested post obstructive CT abdomen/pelvis was benign; no evidence of hydronephrosis, obstruction, or urinary retention. Nursing was unable to place Lopez; monitoring urine output with bladder scans every 6 hours. Unfortunately, patient continues to refuse straight catheters. Frequent toileting encouraged. Start Flomax. Gabapentin, Lasix, metformin on hold. Vancomycin and Bactrim are discontinued. Continue IV fluids; monitor for fluid volume overload. Continue daily chemistries. Nephrology is consulted; appreciate Dr. Khan's assistance. (11) Hyperkalemia Is this a current diagnosis for this admission?: Yes Plan: Resolved. We will continue to monitor with daily chemistries. - Time Time Spent with patient: 25-34 minutes Medications reviewed and adjusted accordingly: Yes Anticipated discharge: Home with Homehealth Within: within 48 hours
[2019-01-02] MEDS ORDERED: ACETAMINOPHEN 325 MG TABLET PO PRN (13:52)
[2019-01-02] MEDS: NORMAL SALINE 1000 ML 1,000 ML IV PRN (18:14)
[2019-01-02] MEDS: TAMSULOSIN HCL 0.4 MG CAP.SR.24H PO SCH (18:15)
[2019-01-02] MEDS: MELATONIN 5 MG TABLET PO SCH (21:34)
[2019-01-02] MEDS: MONTELUKAST SODIUM 10 MG TABLET PO SCH (21:35)
[2019-01-02] MEDS: INSULIN GLARGINE,HUM.REC.ANLOG 1,000 UNIT/10 ML VIAL SUBCUT SCH (21:36)
[2019-01-03] MEDS: OXYCODONE-ACETAMINOPHEN 5-325 MG TABLET PO PRN ×3 (05:41→21:40)
[2019-01-03] MEDS: CLINDAMYCIN HCL 150 MG CAPSULE PO SCH ×3 (05:41→21:40)
[2019-01-03] MEDS ORDERED: TRAZODONE HCL 50 MG TABLET PO ONE (07:00)
[2019-01-03] MEDS: INSULIN LISPRO 100 UNIT/ML 3 ML VIAL SUBCUT SCH ×3 (08:40→16:50)
[2019-01-03] MEDS: FERROUS SULFATE 325 MG TABLET PO SCH ×2 (08:41→17:19)
[2019-01-03 09:07] LABS: ANION GAP 10 (5-19); BLOOD UREA NITROGEN 10 mg/dL (7-20); CALCIUM 8.2 mg/dL (8.4-10.2); CARBON DIOXIDE 19 mmol/L (22-30); CHLORIDE 108 mmol/L (98-107); GLUCOSE 144 mg/dL (75-110); POTASSIUM 3.1 mmol/L (3.6-5.0); SODIUM 137.4 mmol/L (137-145)
[2019-01-03] MEDS: MULTIVITAMINS W-IRON TABLET, CHEWABLE PO SCH (10:26)
[2019-01-03] MEDS: SITAGLIPTIN PHOSPHATE 50 MG TABLET PO SCH (10:26)
[2019-01-03] MEDS: CIPROFLOXACIN HCL 500 MG TABLET PO SCH ×2 (10:27→21:49)
[2019-01-03] MEDS: CARVEDILOL 12.5 MG TABLET PO SCH ×2 (10:28→21:39)
[2019-01-03] MEDS: FAMOTIDINE 20 MG TABLET PO SCH (10:28)
[2019-01-03] MEDS: BUPROPION HCL 75 MG TABLET PO SCH ×2 (10:28→17:19)
[2019-01-03] MEDS: BUSPIRONE HCL 10 MG TABLET PO SCH ×2 (10:28→21:39)
[2019-01-03] MEDS: DOCUSATE SODIUM 100 MG CAPSULE PO SCH ×2 (10:28→17:03)
[2019-01-03] MEDS: FLUTICASONE/VILANTEROL 100-25 MCG/DOSE IH SCH (10:29)
[2019-01-03] MEDS: CLOPIDOGREL BISULFATE 75 MG TABLET PO SCH (10:29)
[2019-01-03] MEDS: ENOXAPARIN SODIUM INJ 30 MG/0.3 ML DISP.SYRIN SUBCUT SCH (10:43)
[2019-01-03] MEDS: COLLAGENASE CLOSTRIDIUM HIST. OINT 30 GM TP SCH ×2 (10:58→21:42)
[2019-01-03] MEDS: ONDANSETRON HCL INJ/PF 4 MG/2 ML SDV IV PRN ×2 (11:29→17:33)
[2019-01-03] MEDS ORDERED: POTASSIUM CHLORIDE 10 MEQ CAPSULE.ER PO ONE (12:22)
[2019-01-03] MEDS: CIPROFLOXACIN 400 MG/D5W RTU 400 MG/200 ML RTUPB IV SCH (13:56)
[2019-01-03] MEDS: NORMAL SALINE 1000 ML 1,000 ML IV PRN ×2 (13:58→23:19)
[2019-01-03] MEDS: HYDRALAZINE HCL INJ/PF 20 MG/1 ML SDV IV PRN (16:51)
[2019-01-03] MEDS: TAMSULOSIN HCL 0.4 MG CAP.SR.24H PO SCH (17:19)
--- NOTE | 2019-01-03 17:34 | PDOC PROGRESS REPORT ---
Subjective Progress Note for:: 01/03/19 Subjective:: DUSTIN MALDONADO is a 58 year old female with past medical history of diabetes, hypertension, CVA without residual, peripheral neuropathy, dyslipidemia, COPD, iron deficiency anemia, anxiety, recurrent pyelonephritis and BKA November 09, 2018 who was admitted 12/22/2018 for sepsis secondary to right BKA surgical site infection; now postop right AKA Patient was seen on afternoon rounds. She is awake, alert and oriented x4. She denies pain at present. She denies fever, chills, chest pain, palpitations, dyspnea, orthopnea, cough, abdominal pain, vomiting and diarrhea. She is requesting to be discharged to home; advised I'd like to monitor her renal function for one more day. Likely d/c tomorrow. She has no other questions or concerns. No concerns per nursing. Reason For Visit: HYPERKALEMIA W T WAVE PEAK,R STUMP NECROSIS Physical Exam Vital Signs: Temp Pulse Resp BP Pulse Ox 99.1 F 80 18 172/64 H 100 01/03/19 16:30 01/03/19 16:30 01/03/19 16:30 01/03/19 16:30 01/03/19 16:30 Intake & Output 01/02/19 01/03/19 01/04/19 06:59 06:59 06:59 Intake Total 4018 1237 1300 Output Total 1550 250 Balance 2468 1237 1050 Weight 58.4 kg 57.2 kg General appearance: PRESENT: no acute distress, disheveled, thin, well- developed, well-nourished Head exam: PRESENT: atraumatic, normocephalic Eye exam: PRESENT: conjunctiva pink, EOMI, PERRLA. ABSENT: scleral icterus Ear exam: PRESENT: normal external ear exam Mouth exam: PRESENT: moist, tongue midline Teeth exam: PRESENT: poor dentation Neck exam: ABSENT: carotid bruit, JVD, lymphadenopathy, thyromegaly Respiratory exam: PRESENT: clear to auscultation roderick, symmetrical, unlabored. ABSENT: rales, rhonchi, wheezes Cardiovascular exam: PRESENT: RRR. ABSENT: diastolic murmur, rubs, systolic murmur Pulses: PRESENT: normal dorsalis pedis pul Vascular exam: PRESENT: normal capillary refill GI/Abdominal exam: PRESENT: normal bowel sounds, soft. ABSENT: distended, guarding, mass, organolmegaly, rebound, tenderness Rectal exam: PRESENT: deferred Extremities exam: PRESENT: full ROM, other - Rt AKA. ABSENT: calf tenderness, clubbing, pedal edema Neurological exam: PRESENT: alert, awake, oriented to person, oriented to place, oriented to time, oriented to situation, CN II-XII grossly intact. ABSENT: motor sensory deficit Psychiatric exam: PRESENT: appropriate affect, normal mood. ABSENT: homicidal ideation, suicidal ideation Skin exam: PRESENT: dry, intact, warm. ABSENT: cyanosis, rash Results Laboratory Results: 12/31/18 09:22 01/03/19 07:53 01/03/19 07:53 Sodium 137.4 Potassium 3.1 L Chloride 108 H Carbon Dioxide 19 L Anion Gap 10 BUN 10 Creatinine 1.71 H Est GFR ( Amer) 37 L Est GFR (Non-Af Amer) 30 L Glucose 144 H Calcium 8.2 L 12/31/18 11:00 Clean Catch Midstream Urine Culture - Final C.albicans/C.dubliniensis 12/22/18 12/23/18 12/23/18 16:34 05:40 05:40 Creatine Kinase < 20 L < 20 L CK-MB (CK-2) < 0.22 Troponin I < 0.012 12/23/18 12/23/18 12/23/18 11:37 11:37 16:50 Creatine Kinase < 20 L < 20 L CK-MB (CK-2) < 0.22 Troponin I < 0.012 12/23/18 16:50 Creatine Kinase CK-MB (CK-2) < 0.22 Troponin I < 0.012 Impressions: Chest X-Ray 12/22/18 16:09 IMPRESSION: NO ACUTE FINDINGS. Tibia/Fibula X-Ray 12/22/18 16:10 IMPRESSION: Recent appearing right below-knee amputation without obvious evidence of bony erosion or sclerosis to suggest osteomyelitis. Soft tissue swelling of the stump. Abdomen X-Ray 12/23/18 04:33 IMPRESSION: 1. Right nephrolithiasis. 2. Otherwise nonspecific abdomen. Abdomen/Pelvis CT 12/31/18 00:00 IMPRESSION: No acute findings. Nonobstructing stone right kidney. Diver ticulosis. Assessment and Plan - Diagnosis (1) Infection of right below knee amputation Is this a current diagnosis for this admission?: Yes Plan: Blood cultures are negative at 5 days. Wound culture positive for MRSA and E.coli Postop day #6 AKA. Patient was empirically placed on IV vancomycin and Zosyn; transitioned to p.o. Clindamycin and ciprofloxacin. Surgery is consulted; wound care per their expertise. Discharge planning is consulted; home with home health services. Analgesics as needed. Physical therapy consultation. OOB three times daily for meals. (2) Diabetes Qualifiers: Diabetes mellitus type: type 2 Diabetes mellitus intermediate project manager insulin use: with fpc use Is this a current diagnosis for this admission?: Yes Plan: PMH DM type 2, well controlled with A1c of 6.1%. Accu-Cheks before meals and at bedtime with Humalog sliding scale coverage. 1/2 dose home dose lantus Hypoglycemia protocol. Consistent carb diet. Registered dietitian and childbirth educator consulted. (3) Osteomyelitis Is this a current diagnosis for this admission?: Yes Plan: As above. (4) Iron deficiency anemia Qualifiers: Iron deficiency anemia type: unspecified iron deficiency Qualified Code(s): D50.9 - Iron deficiency anemia, unspecified Is this a current diagnosis for this admission?: Yes Plan: Multifactorial to include chronic disease and acute inflammation Daily multivitamin and ferrous sulfate supplementation. Registered dietitian is consulted. (5) Severe sepsis Is this a current diagnosis for this admission?: Yes Plan: Resolved Secondary to stump necrosis versus UTI (leuk esterase & WBC) Blood culture negative at 5 days Wound culture (+) MRSA and e.coli Urine culture grew <2000 colonies; UTI is ruled out. Patient was treated with IV vancomycin and cipro for wound infection and p.o. Macrobid for UTI. All discontinued. Received 1 day of Bactrim; discontinued secondary to PATT. Started on clindamycin and ciprofloxacin; Day #3. (6) UTI (urinary tract infection) Is this a current diagnosis for this admission?: Yes Plan: Ruled out. Urinalysis positive for UTI (leuk esterase & >182 WBC) Initial urine culture negative (<2000, colony count) Repeat urinalysis suggestive of UTI; culture reveals Melonie. Antibiotics as above. (7) Hypertension Qualifiers: Is this a current diagnosis for this admission?: Yes Plan: Continue home dose carvedilol Lisinopril currently on hold secondary to PATT. IV hydralazine as needed for blood pressure control. Pain management as above. (8) Hypomagnesemia Is this a current diagnosis for this admission?: Yes Plan: Replete. (9) Anxiety Is this a current diagnosis for this admission?: Yes Plan: Continue home dose Wellbutrin. Continue BuSpar twice daily. Provide adequate analgesic. (10) PATT (acute kidney injury) Is this a current diagnosis for this admission?: Yes Plan: Improved. Multifactorial secondary to sepsis, poor p.o. intake and multiple medications (Lasix, gabapentin, vancomycin) Creatining 0.54-> 0.92-> 1.97-> 2.38-> 2.12-> 1.95-> 1.70. Baseline 0.70 FeNA 4.5%; suggested post obstructive CT abdomen/pelvis was benign; no evidence of hydronephrosis, obstruction, or urinary retention. Nursing was unable to place Lopez; monitoring urine output with bladder scans every 6 hours. Unfortunately, patient continues to refuse straight catheters. Frequent toileting encouraged. Start Flomax. Gabapentin, Lasix, metformin on hold. Vancomycin and Bactrim are discontinued. Continue IV fluids; monitor for fluid volume overload. Continue daily chemistries. Nephrology is consulted; appreciate Dr. Khan's assistance. (11) Hyperkalemia Is this a current diagnosis for this admission?: Yes Plan: Resolved. We will continue to monitor with daily chemistries. (12) Hypokalemia Is this a current diagnosis for this admission?: Yes Plan: Replace with oral potassium today. Continue daily chemistries. - Time Time Spent with patient: 15-24 minutes Medications reviewed and adjusted accordingly: Yes Anticipated discharge: Home with Homehealth Within: within 48 hours
[2019-01-03] MEDS: MONTELUKAST SODIUM 10 MG TABLET PO SCH (21:39)
[2019-01-03] MEDS: MELATONIN 5 MG TABLET PO SCH (21:40)
[2019-01-03] MEDS: TRAZODONE HCL 50 MG TABLET PO PRN (21:41)
[2019-01-03] MEDS: INSULIN GLARGINE,HUM.REC.ANLOG 1,000 UNIT/10 ML VIAL SUBCUT SCH (21:42)
[2019-01-04] MEDS: CLINDAMYCIN HCL 150 MG CAPSULE PO SCH ×3 (05:20→22:12)
[2019-01-04] MEDS: OXYCODONE-ACETAMINOPHEN 5-325 MG TABLET PO PRN ×3 (05:20→19:55)
[2019-01-04 06:03] LABS: HEMATOCRIT 23.5 % (36.0-47.0); HEMOGLOBIN 8.1 g/dL (12.0-15.5); MEAN CORPUSCULAR HEMOGLOBIN 28.3 pg (27.0-33.4); MEAN CORPUSCULAR HGB CONC 34.5 g/dL (32.0-36.0); MEAN CORPUSCULAR VOLUME 82 fl (80-97); PLATELET COUNT 335 10^3/uL (150-450); RED BLOOD COUNT 2.87 10^6/uL (3.72-5.28); RED CELL DISTRIBUTION WIDTH 15.9 % (11.5-14.0); WHITE BLOOD COUNT 7.9 10^3/uL (4.0-10.5)
[2019-01-04 06:23] LABS: ANION GAP 11 (5-19); BLOOD UREA NITROGEN 10 mg/dL (7-20); CALCIUM 7.8 mg/dL (8.4-10.2); CARBON DIOXIDE 20 mmol/L (22-30); CHLORIDE 109 mmol/L (98-107); GLUCOSE 92 mg/dL (75-110); POTASSIUM 3.5 mmol/L (3.6-5.0); SODIUM 139.5 mmol/L (137-145)
[2019-01-04] MEDS: INSULIN LISPRO 100 UNIT/ML 3 ML VIAL SUBCUT SCH ×3 (07:47→16:39)
[2019-01-04] MEDS: NORMAL SALINE 1000 ML 1,000 ML IV PRN ×2 (10:04→18:29)
[2019-01-04] MEDS: FERROUS SULFATE 325 MG TABLET PO SCH ×2 (10:04→18:21)
[2019-01-04] MEDS: BUSPIRONE HCL 10 MG TABLET PO SCH ×2 (10:05→22:13)
[2019-01-04] MEDS: FAMOTIDINE 20 MG TABLET PO SCH (10:05)
[2019-01-04] MEDS: CLOPIDOGREL BISULFATE 75 MG TABLET PO SCH (10:05)
[2019-01-04] MEDS: MULTIVITAMINS W-IRON TABLET, CHEWABLE PO SCH (10:05)
[2019-01-04] MEDS: DOCUSATE SODIUM 100 MG CAPSULE PO SCH ×2 (10:05→18:20)
[2019-01-04] MEDS: CARVEDILOL 12.5 MG TABLET PO SCH ×2 (10:05→22:13)
[2019-01-04] MEDS: SITAGLIPTIN PHOSPHATE 50 MG TABLET PO SCH (10:06)
[2019-01-04] MEDS: FLUTICASONE/VILANTEROL 100-25 MCG/DOSE IH SCH (10:06)
[2019-01-04] MEDS: ENOXAPARIN SODIUM INJ 30 MG/0.3 ML DISP.SYRIN SUBCUT SCH (10:07)
[2019-01-04] MEDS: CIPROFLOXACIN HCL 500 MG TABLET PO SCH ×2 (10:07→22:11)
[2019-01-04] MEDS: COLLAGENASE CLOSTRIDIUM HIST. OINT 30 GM TP SCH ×2 (10:08→22:01)
[2019-01-04] MEDS: BUPROPION HCL 75 MG TABLET PO SCH ×2 (10:08→18:21)
[2019-01-04] MEDS ORDERED: PROMETHAZINE HCL 25 MG TABLET PO PRN (11:58)
[2019-01-04] MEDS: HYDRALAZINE HCL INJ/PF 20 MG/1 ML SDV IV PRN ×2 (15:53→23:35)
[2019-01-04] MEDS: TAMSULOSIN HCL 0.4 MG CAP.SR.24H PO SCH (18:21)
[2019-01-04] MEDS: MONTELUKAST SODIUM 10 MG TABLET PO SCH (22:11)
[2019-01-04] MEDS: MELATONIN 5 MG TABLET PO SCH (22:13)
[2019-01-04] MEDS: INSULIN GLARGINE,HUM.REC.ANLOG 1,000 UNIT/10 ML VIAL SUBCUT SCH (22:15)
--- NOTE | 2019-01-04 22:25 | PDOC PROGRESS REPORT ---
Subjective Progress Note for:: 01/04/19 Subjective:: DUSTIN MALDONADO is a 58 year old female with past medical history of diabetes, hypertension, CVA without residual, peripheral neuropathy, dyslipidemia, COPD, iron deficiency anemia, anxiety, recurrent pyelonephritis and BKA November 09, 2018 who was admitted 12/22/2018 for sepsis secondary to right BKA surgical site infection; now postop right AKA The patient remains at [facility] for PATT, creatinine is slowly resolving. Likely discharge home 24-48 hours Reason For Visit: HYPERKALEMIA W T WAVE PEAK,R STUMP NECROSIS Physical Exam Vital Signs: Temp Pulse Resp BP Pulse Ox 98.5 F 92 18 146/60 H 100 01/04/19 19:32 01/04/19 19:32 01/04/19 19:32 01/04/19 19:32 01/04/19 19:32 Intake & Output 01/03/19 01/04/19 01/05/19 06:59 06:59 06:59 Intake Total 1237 3920 1240 Output Total 250 Balance 1237 3670 1240 Weight 57.2 kg General appearance: PRESENT: well-developed, well-nourished Head exam: PRESENT: atraumatic Eye exam: PRESENT: conjunctiva pink, PERRLA Mouth exam: PRESENT: moist, tongue midline Teeth exam: PRESENT: poor dentation - missing many teeth Neck exam: PRESENT: full ROM Respiratory exam: PRESENT: clear to auscultation roderick, symmetrical, unlabored Cardiovascular exam: PRESENT: RRR Pulses: PRESENT: normal radial pulses Vascular exam: PRESENT: normal capillary refill GI/Abdominal exam: PRESENT: normal bowel sounds, soft. ABSENT: distended Rectal exam: PRESENT: deferred Extremities exam: PRESENT: full ROM Musculoskeletal exam: PRESENT: ambulatory - with walker and 2 person assist. otherwise, uses wheelchair Neurological exam: PRESENT: alert, awake, oriented to person, oriented to place, oriented to time, oriented to situation Psychiatric exam: PRESENT: appropriate affect Skin exam: PRESENT: dry, intact, normal color Results Laboratory Results: 01/04/19 04:50 01/04/19 04:50 01/04/19 01/04/19 04:50 04:50 WBC 7.9 RBC 2.87 L Hgb 8.1 L Hct 23.5 L MCV 82 MCH 28.3 MCHC 34.5 RDW 15.9 H Plt Count 335 Sodium 139.5 Potassium 3.5 L Chloride 109 H Carbon Dioxide 20 L Anion Gap 11 BUN 10 Creatinine 1.55 H Est GFR ( Amer) 41 L Est GFR (Non-Af Amer) 34 L Glucose 92 Calcium 7.8 L 12/22/18 12/23/18 12/23/18 16:34 05:40 05:40 Creatine Kinase < 20 L < 20 L CK-MB (CK-2) < 0.22 Troponin I < 0.012 12/23/18 12/23/18 12/23/18 11:37 11:37 16:50 Creatine Kinase < 20 L < 20 L CK-MB (CK-2) < 0.22 Troponin I < 0.012 12/23/18 16:50 Creatine Kinase CK-MB (CK-2) < 0.22 Troponin I < 0.012 Impressions: Chest X-Ray 12/22/18 16:09 IMPRESSION: NO ACUTE FINDINGS. Tibia/Fibula X-Ray 12/22/18 16:10 IMPRESSION: Recent appearing right below-knee amputation without obvious evidence of bony erosion or sclerosis to suggest osteomyelitis. Soft tissue swelling of the stump. Abdomen X-Ray 12/23/18 04:33 IMPRESSION: 1. Right nephrolithiasis. 2. Otherwise nonspecific abdomen. Abdomen/Pelvis CT 12/31/18 00:00 IMPRESSION: No acute findings. Nonobstructing stone right kidney. Diverticulosis. Status: Imported from PACS Assessment and Plan - Diagnosis (1) Infection of right below knee amputation Is this a current diagnosis for this admission?: Yes Plan: Blood cultures are negative. Wound culture positive for MRSA and E.coli Postop AKA. Patient was empirically placed on IV vancomycin and Zosyn; transitioned to p.o. Clindamycin and ciprofloxacin. Surgery is consulted; wound care per their expertise. Discharge planning is consulted; home with home health services. Analgesics as needed. Physical therapy consultation. OOB three times daily for meals. (2) Diabetes Qualifiers: Diabetes mellitus type: type 2 Diabetes mellitus jail insulin use: wi th jail use Is this a current diagnosis for this admission?: Yes Plan: PMH DM type 2, well controlled with A1c of 6.1%. Accu-Cheks before meals and at bedtime with Humalog sliding scale coverage. 1/2 dose home dose lantus Hypoglycemia protocol. Consistent carb diet. Registered dietitian and cosmetology educator consulted. (3) Hyperkalemia Is this a current diagnosis for this admission?: Yes Plan: Resolved. We will continue to monitor with daily chemistries. (4) Osteomyelitis Is this a current diagnosis for this admission?: Yes Plan: As above. (5) Iron deficiency anemia Qualifiers: Iron deficiency anemia type: unspecified iron deficiency Qualified Code(s): D50.9 - Iron deficiency anemia, unspecified Is this a current diagnosis for this admission?: Yes Plan: Multifactorial to include chronic disease and acute inflammation Daily multivitamin and ferrous sulfate supplementation. Registered dietitian is consulted. (6) Severe sepsis Is this a current diagnosis for this admission?: Yes Plan: Resolved Secondary to stump necrosis versus UTI (leuk esterase & WBC) Blood culture negative at 5 days Wound culture (+) MRSA and e.coli Urine culture grew <2000 colonies; UTI is ruled out. Patient was treated with IV vancomycin and cipro for wound infection and p.o. Macrobid for UTI. All discontinued. Received 1 day of Bactrim; discontinued secondary to PATT. Completed ciprofloxacin, 2 more days of clindamycin (7) UTI (urinary tract infection) Is this a current diagnosis for this admission?: Yes Plan: Ruled out. Urinalysis positive for UTI (leuk esterase & >182 WBC) Initial urine culture negative (<2000, colony count) Repeat urinalysis suggestive of UTI; culture reveals Melonie. Antibiotics as above. - Time Time Spent with patient: 15-24 minutes Medications reviewed and adjusted accordingly: Yes Anticipated discharge: Home Within: within 24 hours, within 48 hours - Inpatient Certification Based on my medical assessment, after consideration of the patient's comorbidities, presenting symptoms, or acuity I expect that the services needed warrant INPATIENT care.: Yes I certify that my determination is in accordance with my understanding of Medicare's requirements for reasonable and necessary INPATIENT services [42 CFR 412.3e].: Yes Medical Necessity: Risk of Complication if Not Cared For in Hospital
[2019-01-05] MEDS: CLINDAMYCIN HCL 150 MG CAPSULE PO SCH ×3 (05:49→21:20)
[2019-01-05] MEDS: NORMAL SALINE 1000 ML 1,000 ML IV PRN (05:53)
[2019-01-05] MEDS: INSULIN LISPRO 100 UNIT/ML 3 ML VIAL SUBCUT SCH ×3 (07:56→16:27)
[2019-01-05] MEDS: OXYCODONE-ACETAMINOPHEN 5-325 MG TABLET PO PRN ×2 (08:58→17:00)
[2019-01-05] MEDS: FERROUS SULFATE 325 MG TABLET PO SCH ×2 (08:58→18:13)
[2019-01-05] MEDS: FLUTICASONE/VILANTEROL 100-25 MCG/DOSE IH SCH (10:05)
[2019-01-05] MEDS: CIPROFLOXACIN HCL 500 MG TABLET PO SCH ×2 (10:05→21:21)
[2019-01-05] MEDS: MULTIVITAMINS W-IRON TABLET, CHEWABLE PO SCH (10:06)
[2019-01-05] MEDS: SITAGLIPTIN PHOSPHATE 50 MG TABLET PO SCH (10:07)
[2019-01-05] MEDS: CARVEDILOL 12.5 MG TABLET PO SCH ×2 (10:07→21:21)
[2019-01-05] MEDS: DOCUSATE SODIUM 100 MG CAPSULE PO SCH ×3 (10:08→18:13)
[2019-01-05] MEDS: FAMOTIDINE 20 MG TABLET PO SCH (10:08)
[2019-01-05] MEDS: BUPROPION HCL 75 MG TABLET PO SCH ×2 (10:08→18:13)
[2019-01-05] MEDS: CLOPIDOGREL BISULFATE 75 MG TABLET PO SCH (10:09)
[2019-01-05] MEDS: BUSPIRONE HCL 10 MG TABLET PO SCH ×2 (10:09→21:20)
[2019-01-05] MEDS: ENOXAPARIN SODIUM INJ 30 MG/0.3 ML DISP.SYRIN SUBCUT SCH ×2 (10:10→10:17)
[2019-01-05] MEDS: COLLAGENASE CLOSTRIDIUM HIST. OINT 30 GM TP SCH ×2 (10:37→21:23)
[2019-01-05] MEDS: TRAZODONE HCL 50 MG TABLET PO PRN (12:48)
--- NOTE | 2019-01-05 13:36 | PDOC PROGRESS REPORT ---
Subjective Progress Note for:: 01/05/19 Subjective:: DUSTIN MALDONADO is a 58 year old female with past medical history of diabetes, hypertension, CVA without residual, peripheral neuropathy, dyslipidemia, COPD, iron deficiency anemia, anxiety, recurrent pyelonephritis and BKA November 09, 2018 who was admitted 12/22/2018 for sepsis secondary to right BKA surgical site infection; now postop right AKA Patient was seen on afternoon rounds. She is awake, alert and oriented x4. She is witnessed to be crying in her room. Does not want to see or talk to her kids, is refusing to eat, nonparticipatory in care. The patient remains at H for PATT, creatinine is slowly resolving. Likely discharge home in 24 hours. In the meantime, will consult psych regarding patient's mental state. Reason For Visit: HYPERKALEMIA W T WAVE PEAK,R STUMP NECROSIS Physical Exam Vital Signs: Temp Pulse Resp BP Pulse Ox 98.1 F 85 16 152/62 H 99 01/05/19 13:12 01/05/19 13:12 01/05/19 13:12 01/05/19 13:12 01/05/19 13:12 Intake & Output 01/04/19 01/05/19 01/06/19 06:59 06:59 06:59 Intake Total 3920 2602 400 Output Total 250 Balance 3670 2602 400 General appearance: PRESENT: well-developed, well-nourished Head exam: PRESENT: atraumatic Eye exam: PRESENT: conjunctiva pink, PERRLA Mouth exam: PRESENT: moist, tongue midline Teeth exam: PRESENT: poor dentation Neck exam: PRESENT: full ROM Respiratory exam: PRESENT: clear to auscultation roderick, symmetrical, unlabored Cardiovascular exam: PRESENT: RRR Pulses: PRESENT: normal radial pulses Vascular exam: PRESENT: normal capillary refill GI/Abdominal exam: PRESENT: soft. ABSENT: distended, tenderness Rectal exam: PRESENT: deferred Extremities exam: ABSENT: full ROM - R AKA. Uses wheelchair, pedal edema Musculoskeletal exam: PRESENT: deformity, full ROM - R AKA. Uses wheelchair. ABSENT: ambulatory Neurological exam: PRESENT: alert, awake, oriented to person, oriented to place, oriented to time, oriented to situation Psychiatric exam: PRESENT: depressed Skin exam: PRESENT: dry, intact, normal color Results Laboratory Results: 01/04/19 04:50 01/04/19 04:50 12/22/18 12/23/18 12/23/18 16:34 05:40 05:40 Creatine Kinase < 20 L < 20 L CK-MB (CK-2) < 0.22 Troponin I < 0.012 12/23/18 12/23/18 12/23/18 11:37 11:37 16:50 Creatine Kinase < 20 L < 20 L CK-MB (CK-2) < 0.22 Troponin I < 0.012 12/23/18 16:50 Creatine Kinase CK-MB (CK-2) < 0.22 Troponin I < 0.012 Impressions: Chest X-Ray 12/22/18 16:09 IMPRESSION: NO ACUTE FINDINGS. Tibia/Fibula X-Ray 12/22/18 16:10 IMPRESSION: Recent appearing right below-knee amputation without obvious evidence of bony erosion or sclerosis to suggest osteomyelitis. Soft tissue swelling of the stump. Abdomen X-Ray 12/23/18 04:33 IMPRESSION: 1. Right nephrolithiasis. 2. Otherwise nonspecific abdomen. Abdomen/Pelvis CT 12/31/18 00:00 IMPRESSION: No acute findings. Nonobstructing stone right kidney. Diverticulosis. Status: Imported from PACS Assessment and Plan - Diagnosis (1) Infection of right below knee amputation Is this a current diagnosis for this admission?: Yes Plan: Blood cultures are negative. Wound culture positive for MRSA and E.coli Postop AKA. Patient was empirically placed on IV vancomycin and Zosyn; transitioned to p.o. Clindamycin and ciprofloxacin. Surgery is consulted; wound care per their expertise. Discharge planning is consulted; home with home health services. Analgesics as needed. Physical therapy consultation. OOB three times daily for meals. (2) Diabetes Qualifiers: Diabetes mellitus type: type 2 Diabetes mellitus middle or intermediate school principal insulin use: with middle or intermediate school principal use Is this a current diagnosis for this admission?: Yes Plan: PMH DM type 2, well controlled with A1c of 6.1%. Accu-Cheks before meals and at bedtime with Humalog sliding scale coverage. 1/2 dose home dose lantus Hypoglycemia protocol. Consistent carb diet. Registered dietitian and rn diabetes educator consulted. (3) Hyperkalemia Is this a current diagnosis for this admission?: Yes Plan: Resolved. We will continue to monitor with daily chemistries. (4) Osteomyelitis Is this a current diagnosis for this admission?: Yes Plan: As above. (5) Iron deficiency anemia Qualifiers: Iron deficiency anemia type: unspecified iron deficiency Qualified Code(s): D50.9 - Iron deficiency anemia, unspecified Is this a current diagnosis for this admission?: Yes Plan: Multifactorial to include chronic disease and acute inflammation Daily multivitamin and ferrous sulfate supplementation. Registered dietitian is consulted. (6) Severe sepsis Is this a current diagnosis for this admission?: Yes Plan: Resolved Secondary to stump necrosis versus UTI (leuk esterase & WBC) Blood culture negative at 5 days Wound culture (+) MRSA and e.coli Urine culture grew <2000 colonies; UTI is ruled out. Patient was treated with IV vancomycin and cipro for wound infection and p.o. Macrobid for UTI. All discontinued. Received 1 day of Bactrim; discontinued secondary to PATT. Completed ciprofloxacin, 2 more days of clindamycin (7) UTI (urinary tract infection) Is this a current diagnosis for this admission?: Yes Plan: Ruled out. Urinalysis positive for UTI (leuk esterase & >182 WBC) Initial urine culture negative (<2000, colony count) Repeat urinalysis suggestive of UTI; culture reveals Melonie. Antibiotics as above. - Time Time Spent with patient: 15-24 minutes Medications reviewed and adjusted accordingly: Yes Anticipated discharge: Home, Home with Homehealth Within: within 24 hours - Inpatient Certification Based on my medical assessment, after consideration of the patient's comorbidities, presenting symptoms, or acuity I expect that the services needed warrant INPATIENT care.: Yes I certify that my determination is in accordance with my understanding of Medicare's requirements for reasonable and necessary INPATIENT services [42 CFR 412.3e].: Yes Medical Necessity: Significant Comorbidiites Make Outpatient Treatment Too Risky, Need Close Monitoring Due to Risk of Patient Decompensation, Risk of Complication if Not Cared For in Hospital
--- NOTE | 2019-01-05 17:07 | PSYCHOLOGICAL NOTE ---
Psych Note - Psych Note Date seen by psych provider: 01/05/19 Psych Note: Reason for Consult: crying and refuses to eat Chart review conducted: Patient had MRI on 06/07/2019 that indicated chronic microvascular ischemia change with an old left parietal periventricular infarct. There was also diffusion noted positive for acute or subacute punctuate laminar infarctions in the left frontal and parietal lobes in the subcortical white matter. A small focus of restricted diffusion was noted in the subcortical white matter of the right parietal lobe. It states that it was not readily confirmed on the ADC map of but raise concern for possible multivessel distribution. She received a second MRI on 06/14/2018. There was no significant change in the distribution of the acute watershed infarcts in the left MCA in the right MCA distributions however there was a new area of restricted diffusion measuring approximately 1 cm in the right cerebellum. Medication recommendations per [facility]'s contracted psychiatrist Dr. Jennie GAR are as follows: Please discontinue the trazodone and BuSpar Please reduce Wellbutrin to 75 mg daily Please add clonidine 0.1 mg nightly Please add Depakote 125 mg twice daily Medication recommendations have been provided to assists with addressing the patient's current symptoms quickly; full evaluation will occur tomorrow.
[2019-01-05] MEDS: TAMSULOSIN HCL 0.4 MG CAP.SR.24H PO SCH (18:13)
[2019-01-05] MEDS: MONTELUKAST SODIUM 10 MG TABLET PO SCH (21:21)
[2019-01-05] MEDS: MELATONIN 5 MG TABLET PO SCH (21:21)
[2019-01-05] MEDS: INSULIN GLARGINE,HUM.REC.ANLOG 1,000 UNIT/10 ML VIAL SUBCUT SCH (21:28)
[2019-01-06] MEDS: CLINDAMYCIN HCL 150 MG CAPSULE PO SCH ×2 (06:31→13:42)
[2019-01-06] MEDS: INSULIN LISPRO 100 UNIT/ML 3 ML VIAL SUBCUT SCH (07:44)
[2019-01-06] MEDS: MULTIVITAMINS W-IRON TABLET, CHEWABLE PO SCH (10:37)
[2019-01-06] MEDS: FERROUS SULFATE 325 MG TABLET PO SCH (10:37)
[2019-01-06] MEDS: CIPROFLOXACIN HCL 500 MG TABLET PO SCH (10:38)
[2019-01-06] MEDS: DOCUSATE SODIUM 100 MG CAPSULE PO SCH (10:38)
[2019-01-06] MEDS: SITAGLIPTIN PHOSPHATE 50 MG TABLET PO SCH (10:38)
[2019-01-06] MEDS: CARVEDILOL 12.5 MG TABLET PO SCH (10:39)
[2019-01-06] MEDS: BUPROPION HCL 75 MG TABLET PO SCH (10:39)
[2019-01-06] MEDS: FAMOTIDINE 20 MG TABLET PO SCH (10:39)
[2019-01-06] MEDS: BUSPIRONE HCL 10 MG TABLET PO SCH (10:39)
[2019-01-06] MEDS: FLUTICASONE/VILANTEROL 100-25 MCG/DOSE IH SCH (10:39)
[2019-01-06] MEDS: CLOPIDOGREL BISULFATE 75 MG TABLET PO SCH (10:39)
[2019-01-06] MEDS: ENOXAPARIN SODIUM INJ 30 MG/0.3 ML DISP.SYRIN SUBCUT SCH (10:40)
[2019-01-06] MEDS: COLLAGENASE CLOSTRIDIUM HIST. OINT 30 GM TP SCH (10:45)
[2019-01-06 16:25] VITALS: BP 127/57
[2019-01-06] MEDS ORDERED: CLONIDINE HCL 0.1 MG TABLET PO SCH (22:00)
[2019-01-07] MEDS ORDERED: BUPROPION HCL 75 MG TABLET PO SCH (10:00)
== END 2019-01-06 16:45 | disposition home health service (06) | DRG 463 ==
LOC: ER 15:59 → EH 19:31 → 3N 23:29 → 4W 01-02 20:18 → 4N 01-03 18:45
PROVIDERS: ADMIT Internal Medicine; ATTEND Internal Medicine
PROC: 0JBN0ZZ Excision of Right Lower Leg Subcutaneous Tissue and Fascia, Open Approach (ICD-10-PCS; principal; 2018-12-24)
PROC: 30233N1 Transfusion of Nonautologous Red Blood Cells into Peripheral Vein, Percutaneous Approach (ICD-10-PCS; 2018-12-24)
PROC: 0Y6H0Z3 Detachment at Right Lower Leg, Low, Open Approach (ICD-10-PCS; 2018-12-28)
DX: T87.43 Infection of amputation stump, right lower extremity (principal); A41.51 Sepsis due to Escherichia coli [E. coli]; A41.02 Sepsis due to Methicillin resistant Staphylococcus aureus; R65.20 Severe sepsis without septic shock; M86.8X6 Other osteomyelitis, lower leg; E11.52 Type 2 diabetes mellitus with diabetic peripheral angiopathy with gangrene; I96 Gangrene, not elsewhere classified; N39.0 Urinary tract infection, site not specified; N17.9 Acute kidney failure, unspecified; E87.1 Hypo-osmolality and hyponatremia; E87.2 Acidosis; T87.81 Dehiscence of amputation stump; G62.9 Polyneuropathy, unspecified; E11.319 Type 2 diabetes mellitus with unspecified diabetic retinopathy without macular edema; E87.5 Hyperkalemia; D50.9 Iron deficiency anemia, unspecified; I50.9 Heart failure, unspecified; E83.42 Hypomagnesemia; I11.0 Hypertensive heart disease with heart failure; E78.00 Pure hypercholesterolemia, unspecified; N20.0 Calculus of kidney; F41.9 Anxiety disorder, unspecified; Z86.73 Personal history of transient ischemic attack (TIA), and cerebral infarction without residual deficits; Z79.01 Long term (current) use of anticoagulants; Z79.84 Long term (current) use of oral hypoglycemic drugs; Z79.4 Long term (current) use of insulin; Z79.51 Long term (current) use of inhaled steroids; Z79.899 Other long term (current) drug therapy; Z89.511 Acquired absence of right leg below knee
CPT/HCPCS: 01232; 01470; 36415; 36430; 71046; 74019; 74176; 80048; 80053; 80202; 81001; 82550; 82553; 82565; 82570; 82962; 83036; 83735; 84100; 84300; 84484; 85025; 85027; 86850; 86900; 86901; 86920; 87040; 87045; 87070; 87075; 87077; 87086; 87186; 87205; 87493; 88307; 88311; 89055; 93005; 93010; 94799; 96361; 96365; 96374; 96375; 99284; J0131; J0360; J0610; J0744; J1630; J1644; J1650; J1815; J1885; J1940; J2060; J2250; J2270; J2405; J2543; J2704; J3010; J3370; J3475; J3480; J3490; J7030; J7040; J7050; J7060; J7620; J8499; P9016

== ENCOUNTER 2019-05-16 14:06 | Inpatient (IN) | payer MEDICARE, OTHER ==
--- NOTE | 2019-05-16 14:20 | ER Document Report ---
ED Medical Screen (RME) - General Chief Complaint: S/S of Possible Stroke Stated Complaint: FACIAL NUMBNESS,FINGER NUMBNESS Time Seen by Provider: 05/16/19 14:12 Primary Care Provider: KATT RAMSEY PA-C [Primary Care Provider] - Follow up as needed Mode of Arrival: Wheelchair Information source: Patient, Relative - son Notes: 58-year-old diabetic patient with history of strokes presents to the emergency department with complaints that her right hand has been numb since Sunday. Son reports some slurred speech at approximately 0700 this morning and on the drive here he reports the right side of his face seems more pronounced drooping. Patient does have a history of facial drooping. She reports her lip feels heavier. Son reports last year patient had several strokes and also treated with several surgeries on her left leg that ended with AKA. Patient is very tearful. Reports she did not come to the emergency department because she is afraid of needles. Right hand is very weak and patient is having trouble gripping. I have greeted and performed a rapid initial assessment of this patient. A comprehensive ED assessment and evaluation of the patient, analysis of test results and completion of the medical decision making process will be conducted by additional ED providers. Dictation of this chart was performed using voice recognition software; therefore, there may be some unintended grammatical errors. TRAVEL OUTSIDE OF THE [place] IN LAST 30 DAYS: No - Related Data Allergies/Adverse Reactions: No Known Allergies Allergy (Verified 05/16/19 14:09) Past Medical History - Past Medical History Cardiac Medical History: Reports: Hx Congestive Heart Failure, Hx Hypercholesterolemia, Hx Hypertension Pulmonary Medical History: Reports: Hx Asthma Neurological Medical History: Reports: Hx Cerebrovascular Accident Endocrine Medical History: Reports: Hx Diabetes Mellitus Type 1, Hx Diabetes Mellitus Type 2 Renal/ Medical History: Denies: Hx Peritoneal Dialysis Musculoskeltal Medical History: Reports Hx Arthritis Psychiatric Medical History: Reports: Hx Depression Past Surgical History: Reports: Hx Section, Hx Orthopedic Surgery, Hx Vascular Surgery - Angio - Immunizations Immunizations up to date: Yes Hx Diphtheria, Pertussis, Tetanus Vaccination: Yes History of Influenza Vaccine for 05/2017 - 10/2017 Season: Yes Physical Exam - Vital signs Vitals: Temp Pulse Resp BP Pulse Ox 98.2 F 94 16 130/65 H 98 05/16/19 14:07 05/16/19 14:07 05/16/19 14:07 05/16/19 14:07 05/16/19 14:07 Course - Vital Signs Vital signs: Temp Pulse Resp BP Pulse Ox 98.2 F 94 16 130/65 H 98 05/16/19 14:07 05/16/19 14:07 05/16/19 14:07 05/16/19 14:07 05/16/19 14:07 Doctor's Discharge - Discharge Referrals: KATT RAMSEY PA-C [Primary Care Provider] - Follow up as needed
--- NOTE | 2019-05-16 15:05 | RADIOLOGY REPORT (SQ) ---
EXAM DESCRIPTION: CT HEAD WITHOUT COMPLETED DATE/TIME: 05/16/2019 2:51 pm REASON FOR STUDY: numb hand, slurred speech COMPARISON: 11/05/2018 TECHNIQUE: Axial images acquired through the brain without intravenous contrast. Images reviewed wi th bone, brain and subdural windows. Additional sagittal and coronal reconstructions were generated. Images stored on PACS. All CT scanners at this facility use dose modulation, iterative reconstruction, and/or weight based d osing when appropriate to reduce radiation dose to as low as reasonably achievable (ALARA). [facility]: Dose Right [facility]: CareDose [facility]: Dose Right [facility]: Teradose 4D [facility]: Kloudless RADIATION DOSE: CT Rad equipment meets quality standard of care and radiation dose reduction techniq ues were employed. CTDIvol: 53.2 mGy. DLP: 964 mGy-cm. mGy. LIMITATIONS: None. FINDINGS: VENTRICLES: Normal size and contour. CEREBRUM: No masses. No hemorrhage. No midline shift. No evidence for acute infarction. There is a n old left parietal lobe infarct stable in appearance. No acute findings. CEREBELLUM: No masses. No hemorrhage. No alteration of density. No evidence for acute infarction. EXTRAAXIAL SPACES: No fluid collections. No masses. ORBITS AND GLOBE: No intra- or extraconal masses. Normal contour of globe without masses. CALVARIUM: No fracture. PARANASAL SINUSES: No fluid or mucosal thickening. SOFT TISSUES: No mass or hematoma. OTHER: No other significant finding. IMPRESSION: Stable left parietal infarct. No acute intracranial event. EVIDENCE OF ACUTE STROKE: NO. COMMENT: Quality ID # [id number]: Final reports with documentation of one or more dose reduction techniques (e.g., Automated exposure control, adjustment of the mA and/or kV according to patient size, use of iterative reconstruction technique) TECHNICAL DOCUMENTATION: JOB ID: [id number] [employer]- All Rights Reserved Reading location - IP/workstation name: [email or web address]
--- NOTE | 2019-05-16 15:06 | EKG REPORT ---
SEVERITY:- NORMAL ECG - SINUS RHYTHM : Confirmed by: Kadeem Cali MD 16-May-2019 15:06:06
--- NOTE | 2019-05-16 15:18 | RADIOLOGY REPORT (SQ) ---
EXAM DESCRIPTION: CHEST SINGLE VIEW COMPLETED DATE/TIME: 05/16/2019 3:09 pm REASON FOR STUDY: numb hand, slurred speech COMPARISON: 12/22/2018 NUMBER OF VIEWS: One view. TECHNIQUE: Single frontal radiographic image of the chest acquired. LIMITATIONS: None. FINDINGS: LUNGS AND PLEURA: Stable appearance. MEDIASTINUM AND HILAR STRUCTURES: Stable heart size and mediastinal structures. HEART AND VASCULAR STRUCTURES: Stable appearance. SUPPORT DEVICES: Appropriate location without change. BONES: No acute findings. OTHER: No other significant finding. IMPRESSION: STABLE APPEARANCE OF THE CHEST. SUPPORT DEVICES UNCHANGED. TECHNICAL DOCUMENTATION: JOB ID: [id number] [employer]- All Rights Reserved Reading location - IP/workstation name: [email or web address]
[2019-05-16] MEDS ORDERED: LORAZEPAM 0.5 MG TABLET PO ONE (15:53)
[2019-05-16 17:17] LABS: INTERNATIONAL RATION (INR) 1.12
[2019-05-16 17:18] LABS: PARTIAL THROMBOPLASTIN TIME 39.5 SEC (23.5-35.8)
[2019-05-16 17:22] LABS: PROTHROMBIN TIME 14.5 SEC (11.4-15.4)
[2019-05-16 17:23] LABS: ABSOLUTE BASOPHILS # (AUTO) 0.1 10^3/uL (0.0-0.2); ABSOLUTE EOSINOPHILS # (AUTO) 0.3 10^3/uL (0.0-0.6); ABSOLUTE LYMPHOCYTES (AUTO) 3.3 10^3/uL (0.5-4.7); ABSOLUTE MONOCYTES (AUTO) 0.7 10^3/uL (0.1-1.4); ABSOLUTE NEUT (AUTO) 5.4 10^3/uL (1.7-8.2); BASOPHILS % (AUTO) 1.3 % (0-2); EOSINOPHILS % (AUTO) 2.7 % (0-6); HEMOGLOBIN 11.7 g/dL (12.0-15.5); LYMPHOCYTES % (AUTO) 34.1 % (13-45); MEAN CORPUSCULAR HEMOGLOBIN 29.1 pg (27.0-33.4); MEAN CORPUSCULAR HGB CONC 34.3 g/dL (32.0-36.0); MEAN CORPUSCULAR VOLUME 85 fl (80-97); MONOCYTES % (AUTO) 6.9 % (3-13); PLATELET COUNT 253 10^3/uL (150-450); RED CELL DISTRIBUTION WIDTH 13.5 % (11.5-14.0); TOTAL CELLS COUNTED % (AUTO) 100 %; WHITE BLOOD COUNT 9.7 10^3/uL (4.0-10.5)
[2019-05-16 19:19] LABS: ALBUMIN 3.7 g/dL (3.5-5.0); ALKALINE PHOSPHATASE 136 U/L (38-126); ANION GAP 12 (5-19); ASPARTATE AMINO TRANSFERASE 15 U/L (14-36); BILIRUBIN,DIRECT 0.1 mg/dL (0.0-0.4); BILIRUBIN,TOTAL 0.8 mg/dL (0.2-1.3); BLOOD UREA NITROGEN 32 mg/dL (7-20); CALCIUM 10.1 mg/dL (8.4-10.2); CARBON DIOXIDE 23 mmol/L (22-30); CHLORIDE 100 mmol/L (98-107); CREATINE KINASE 24 U/L (30-135); GLUCOSE 203 mg/dL (75-110); POTASSIUM 5.4 mmol/L (3.6-5.0); TOTAL PROTEIN 6.9 g/dL (6.3-8.2)
[2019-05-16 19:29] LABS: CREATINE KINASE MB 0.55 ng/mL (<4.55)
[2019-05-16 19:35] LABS: TROPONIN I < 0.012 ng/mL
--- NOTE | 2019-05-16 20:12 | ER Document Report ---
ED General - General Chief Complaint: S/S of Possible Stroke Stated Complaint: FACIAL NUMBNESS,FINGER NUMBNESS Time Seen by Provider: 05/16/19 14:12 Primary Care Provider: KATT RAMSEY PA-C [Primary Care Provider] - Follow up as needed Mode of Arrival: Wheelchair Notes: 58-year-old female presents emergency department complaining of numbness to her right hand since Sunday evening that has been steadily worsening and she is now dropping things and having trouble moving her wheelchair. Now she has developed some difficulty speaking that she and her son both noticed today. Patient does have right-sided facial droop but she and her son both say this is unchanged from prior stroke. Denies falls, denies blurry vision, denies difficulty swallowing. Denies nausea, vomiting, diarrhea. Patient did have a full stroke work-up in 2018 at [facility] and they were unable to find a cause for her 3 prior strokes in 2018. Patient also notes that she has been feeling quite depressed since she had 3 strokes and an [id number] amputation over the past year. Patient states that every night she prays that the Lord will take her in her sleep because she does not want to live like this. Denies any desire to hurt herself, denies any attempts to hurt herself. States she thinks she needs to have her antidepressants adjusted. TRAVEL OUTSIDE OF THE [place] IN LAST 30 DAYS: No - Related Data Allergies/Adverse Reactions: No Known Allergies Allergy (Verified 05/16/19 14:09) Past Medical History - General Information source: Patient, Relative - son - Social History Smoking Status: Former Smoker Frequency of alcohol use: None Drug Abuse: None Family History: DM, Hyperlipidemia, Hypertension Patient has suicidal ideation: No Patient has homicidal ideation: No - Past Medical History Cardiac Medical History: Reports: Hx Congestive Heart Failure, Hx Hypercholesterolemia, Hx Hypertension Pulmonary Medical History: Reports: Hx Asthma Neurological Medical History: Reports: Hx Cerebrovascular Accident Endocrine Medical History: Reports: Hx Diabetes Mellitus Type 1, Hx Diabetes Mellitus Type 2 Renal/ Medical History: Denies: Hx Peritoneal Dialysis Musculoskeletal Medical History: Reports Hx Arthritis Psychiatric Medical History: Reports: Hx Depression Past Surgical History: Reports: Hx Section, Hx Orthopedic Surgery, Hx Vascular Surgery - Angio - Immunizations Immunizations up to date: Yes Hx Diphtheria, Pertussis, Tetanus Vaccination: Yes Hx Pneumococcal Vaccination: 04/27/15 Review of Systems - Review of Systems Constitutional: No symptoms reported Musculoskeletal: See HPI Neurological/Psychological: See HPI, Depression, Weakness, Speech impairment, Numbness -: Yes All other systems reviewed and negative Physical Exam - Vital signs Vitals: Temp Pulse Resp BP Pulse Ox 98.2 F 94 16 130/65 H 98 05/16/19 14:07 05/16/19 14:07 05/16/19 14:07 05/16/19 14:07 05/16/19 14:07 - Notes Notes: GENERAL: Alert, interacts well. No acute distress. HEAD: Normocephalic, atraumatic EYES: Pupils equal, round and reactive to light, extraocular movements intact. ENT: Oral mucosa moist, tongue midline. Right-sided facial droop, normalizes with smile. NECK: Full range of motion, supple, trachea midline. LUNGS: Clear to auscultation bilaterally, no wheezes, rales or rhonchi, no respiratory distress. HEART: Regular rate and rhythm, no murmurs, gallops, rubs. ABDOMEN: Soft, nontender, nondistended, bowel sounds present in all 4 quadrants. EXTREMITIES: Moves all 4 extremities spontaneously, no edema, radial and dorsalis pedis pulses 2/4 bilaterally. No cyanosis. 4 out of 5 muscle strength in the right upper extremity, right leg has an above-knee amputation with scabbing noted at either end of the incision otherwise well-healed, no erythema or lymphangitic streaking, no drainage. 5 out of 5 muscle strength on the left. NEUROLOGICAL: Alert and oriented x3, speech is somewhat slow, word finding is slow but accurate, no slurring, as above right-sided facial droop, normalizes with smile, biceps and patellar DTRs 2+ bilaterally. [id number] on the right shows some ataxia, [id number] on the left is normal. PSYCH: Pleasant, tearful when discussing multiple strokes. SKIN: Warm, Dry, normal turgor. Course - Re-evaluation Re-evalutation: 05/16/19 20:15 CBC shows mild anemia, CMP shows elevated potassium 5.4 although I suspect this is hemolysis as she was a very difficult stick and has had several blood draws, glucose elevated 203 consistent with diabetes, otherwise unremarkable, chest x- ray shows no acute process, head CT shows stable old left parietal infarct. Nothing acute. As symptoms started on Sunday and have been slowly worsening patient is well out of timeframe for TPA. Family understands why she is not a candidate for TPA. Patient does have weakness on the right hand, clinically I do suspect this is a stroke. Discussed patient with hospitalist Dr. Colten Mejía who agrees to admit the patient to his service for acute stroke. As patient is wheelchair-bound the deficit in strength in her right hand is quite debilitating as she uses a mechanical wheelchair nonmotorized wheelchair. See nursing notes for complete NIH stroke scale. - Vital Signs Vital signs: Temp Pulse Resp BP Pulse Ox 98.2 F 89 16 140/86 H 98 05/16/19 14:07 05/16/19 19:34 05/16/19 19:34 05/16/19 19:34 05/16/19 19:34 - Laboratory Result Diagrams: 05/16/19 16:57 05/16/19 18:40 Laboratory results interpreted by me: 05/16/19 05/16/19 05/16/19 16:57 16:57 18:40 Hgb 11.7 L Hct 34.0 L APTT 39.5 H Sodium 135.4 L Potassium 5.4 H BUN 32 H Glucose 203 H Alkaline Phosphatase 136 H Creatine Kinase 24 L - EKG Interpretation by Me Additional EKG results interpreted by me: 05/16/19 20:16 EKG shows sinus rhythm at a rate of 89, normal axis, normal intervals, no ST segment elevations or depressions, no T wave inversions per my interpretation. Discharge - Discharge Clinical Impression: Hyperkalemia, Right hand weakness CVA (cerebral vascular accident) Qualifiers: CVA mechanism: unspecified Qualified Code(s): I63.9 - Cerebral infarction, unspecified Condition: Fair Disposition: ADMITTED INPATIENT Admitting Provider: Kym (Hospitalist) Unit Admitted: IMCU Referrals: KATT RAMSEY PA-C [Primary Care Provider] - Follow up as needed
[2019-05-16] MEDS ORDERED: ACETAMINOPHEN 325 MG TABLET PO PRN (20:46)
[2019-05-16] MEDS ORDERED: DOCUSATE SODIUM 100 MG CAPSULE PO PRN (20:46)
[2019-05-16] MEDS ORDERED: ONDANSETRON HCL INJ/PF 4 MG/2 ML SDV IV PRN (20:46)
[2019-05-16] MEDS ORDERED: TEMAZEPAM 15 MG CAPSULE PO PRN (20:46)
[2019-05-16] MEDS ORDERED: MAGNESIUM HYDROXIDE SUSP 30 ML UDCUP PO PRN (20:46)
[2019-05-16] MEDS ORDERED: LABETALOL HCL INJ 20 MG/4 ML DISP.SYRIN IV PRN (20:46)
[2019-05-16] MEDS ORDERED: NALBUPHINE HCL INJ 10 MG/1 ML AMPULE IV PRN ×3 (20:54→22:33)
[2019-05-16] MEDS ORDERED: GLUCAGON,HUMAN RECOMB 1 MG INJ IM PRN (20:55)
[2019-05-16] MEDS ORDERED: DEXTROSE 40% GEL 15 GM TUBE PO PRN ×2 (20:55)
[2019-05-16] MEDS ORDERED: DEXTROSE 50%-WATER 25 GM/50 ML DISP.SYRIN IV PRN ×2 (20:55)
[2019-05-16] MEDS ORDERED: INSULIN REG, HUMAN 100 UNIT/ML 3 ML VIAL (PYX) SUBCUT PRN (20:55)
[2019-05-16] MEDS: FAMOTIDINE 20 MG TABLET PO SCH (23:27)
[2019-05-16] MEDS: HEPARIN SOD (PORCINE) 5,000 UNIT/ML 1 ML VIAL SUBCUT SCH (23:33)
[2019-05-16 23:36] LABS: APPEARANCE,URINE TURBID; BILIRUBIN,URINE NEGATIVE (NEGATIVE); COLOR,URINE YELLOW; GLUCOSE, URINE 50 mg/dL (NEGATIVE); KETONES,URINE NEGATIVE (NEGATIVE); LEUKOCYTE ESTERASE,URINE LARGE (NEGATIVE); NITRITE,URINE NEGATIVE (NEGATIVE); PROTEIN,URINE 30 mg/dL (NEGATIVE); URINE SPECIFIC GRAVITY 1.016; UROBILINOGEN,URINE NEGATIVE mg/dL (<2.0)
--- NOTE | 2019-05-17 00:28 | PDOC H&P ---
History of Present Illness Admission Date/PCP: 05/16/2019 19:55 KATT RAMSEY PA-C Patient complains of: right hand weakness History of Present Illness: DUSTIN MALDONADO is a 58 year old female with a 3-day history of right hand weakness. Patient admits having a sudden onset of decreased strength in her right hand beginning on 05/13/2019 and being continuously present since onset. The right hand weakness was accompanied by a sensation of numbness in her right fingers which has been continuously present over the same interval. At 7 AM this morning patient was noted by her son to have new slowing and slight slurring of her speech with an increase in her right facial droop. She denies other associated or accompanying signs or symptoms. She admits prior similar episodes with several strokes in the past. She further admits to chronic right facial weakness following a previous stroke however her current symptoms are an increase over her baseline level. She has not identified any aggravating or ameliorating factors for her right hand weakness. In the emergency room patient was found to have no evidence of acute stroke or intracranial hemorrhage on a CT scan. She was subsequently admitted to [facility] and the stroke protocol. Past Medical History Cardiac Medical History: Reports: Congestive Heart Failure, Hyperlipidema, Hypertension, Peripheral Vascular Disease, Other - Cerebrovascular disease, CVA X3 Denies: Atrial Fibrillation, Coronary Artery Disease, DVT, Myocardial Infarction, Pulmonary Embolism Pulmonary Medical History: Reports: Asthma Denies: Chronic Obstructive Pulmonary Disease (COPD), Respiratory Failure EENT Medical History: Denies: Cataracts, Ears - Hearing aids Neurological Medical History: Reports: Ischemic CVA Denies: Hemorrhagic CVA, Seizures Endocrine Medical History: Reports: Diabetes Mellitus Type 2 Denies: Diabetes Mellitus Type 1, Hyperthyroidism, Hypothyroidism Renal/ Medical History: Reports: Nephrolithiasis Denies: Chronic Kidney Disease Malignancy Medical History: Reports: None GI Medical History: Denies: Cirrhosis, Crohn's Disease, Hepatitis, Ulcerative Colitis Musculoskeltal Medical History: Reports: Arthritis Denies: Gout Skin Medical History: Denies: Eczema, Psoriasis Psychiatric Medical History: Reports: Depression Denies: Alcohol Dependency, Substance Abuse, Tobacco Dependency Traumatic Medical History: Reports: None Hematology: Reports: Anemia Denies: Bleeding Tendencies Infectious Medical History: Reports: Methicillin-Resistant Staph Aureus Past Surgical History Past Surgical History: Reports: Amputation - Multiple amputations of the right lower extremity ending in an AKA., Section, Orthopedic Surgery, Vascular Surgery - Amputation of right toes (3), right BKA, right AKA, Other - Cardiac loop recorder implant Social History Information Source: Patient Lives with: Family Smoking Status: Former Smoker Frequency of Alcohol Use: None Hx Recreational Drug Use: No Drugs: None Hx Prescription Drug Abuse: No - Advance Directive Resuscitation Status: Full Code Surrogate healthcare decision maker:: Adria Novak Family History Family History: DM, Hyperlipidemia, Hypertension. denies: Malignancy Parental Family History Reviewed: Yes Children Family History Reviewed: No Sibling(s) Family History Reviewed.: Yes Medication/Allergy Home Medications: Albuterol Sulfate [Proair HFA Inhalation Aerosol 8.5 gm MDI] 2 puff IH Q6HP PRN 05/16/19 Aspirin [Adult Low Dose Aspirin EC] 81 mg PO QAM 05/16/19 Atorvastatin Calcium [Lipitor 80 mg Tablet] 80 mg PO QAM 05/16/19 Bupropion HCl [Wellbutrin Xl 150 mg 24hr Tablet] 150 mg PO QAM 05/16/19 Carvedilol [Coreg 12.5 mg Tablet] 12.5 mg PO Q12 05/16/19 Celecoxib [Celebrex 100 mg Capsule] 100 mg PO QAM 05/16/19 Clonidine HCl [Catapres 0.1 mg Tablet] 0.1 mg PO QHS 05/16/19 Clopidogrel Bisulfate [Plavix 75 mg Tablet] 75 mg PO DAILY 05/16/19 Collagenase Clostridium Hist. [Santyl Ointment 30 gm] 1 applic TOP Q12 05/16/19 Famotidine [Pepcid 20 mg Tablet] 20 mg PO DAILYP PRN 05/16/19 Ferrous Sulfate [Feosol 325 mg Tablet] 325 mg PO BID 05/16/19 Furosemide [Lasix 20 mg Tablet] 20 mg PO DAILY 05/16/19 Gabapentin [Neurontin 400 mg Capsule] 400 mg PO Q8 05/16/19 Insulin Glargine,Hum.rec.anlog [Lantus Insulin 100 Unit/1 ml 10 ml] 10 units SQ QPM 05/16/19 Lisinopril [Zestril] 5 mg PO QAM 05/16/19 Melatonin 10 mg PO QHS 05/16/19 Metformin HCl [Glucophage 500 mg Tablet] 500 mg PO BID 05/16/19 Mometasone/Formoterol [Dulera 100 Mcg/5 Mcg Inhaler] 2 puff IH BID 05/16/19 Montelukast Sodium [Singulair 10 mg Tablet] 10 mg PO QHS 05/16/19 Multivitamin [Multiple Vitamins] 1 tab PO DAILY 05/16/19 Omeprazole 20 mg PO QAM 05/16/19 Sitagliptin Phosphate [Januvia] 100 mg PO QAM 05/16/19 Allergies/Adverse Reactions: No Known Allergies Allergy (Verified 05/16/19 14:09) Review of Systems Constitutional: PRESENT: as per HPI, weakness - Right hand weakness and right facial weakness. ABSENT: chills, fever(s) Eyes: ABSENT: visual disturbances, other - Eye pain Ears: ABSENT: hearing changes, other - Ear pain Nose, Mouth, and Throat: ABSENT: mouth pain, sore throat Cardiovascular: ABSENT: chest pain, palpitations Respiratory: ABSENT: cough, dyspnea Gastrointestinal: ABSENT: abdominal pain, constipation, diarrhea, nausea, vomiting Genitourinary: ABSENT: dysuria, hematuria Musculoskeletal: PRESENT: as per HPI, muscle weakness - Right hand weakness and right facial weakness. ABSENT: back pain, joint swelling Integumentary: ABSENT: pruritus, rash Neurological: PRESENT: as per HPI, abnormal speech - Slow and slurred speech, focal weakness - Right hand weakness and right facial weakness, numbness - Right fingers 2-5, weakness - Right hand weakness and right facial weakness. ABSENT: confusion, convulsions, memory loss, syncope Psychiatric: PRESENT: depression. ABSENT: anxiety Endocrine: ABSENT: cold intolerance, heat intolerance Hematologic/Lymphatic: ABSENT: easy bleeding, easy bruising Allergic/Immunologic: ABSENT: seasonal rhinorrhea Physical Exam Vital Signs: Temp Pulse Resp BP Pulse Ox 98.2 F 89 16 140/86 H 98 05/16/19 14:07 05/16/19 19:34 05/16/19 19:34 05/16/19 19:34 05/16/19 19:34 General appearance: PRESENT: no acute distress, cooperative Head exam: PRESENT: atraumatic, normocephalic Eye exam: PRESENT: conjunctiva pink. ABSENT: conjunctival injection, scleral icterus Ear exam: PRESENT: normal external ear exam. ABSENT: bleeding, drainage Mouth exam: PRESENT: dry mucosa, neck supple Neck exam: ABSENT: thyromegaly, tracheal deviation Respiratory exam: PRESENT: clear to auscultation roderick, symmetrical, unlabored Cardiovascular exam: PRESENT: RRR. ABSENT: clicks, gallop, rubs Pulses: PRESENT: normal carotid pulses, normal radial pulses, normal dorsalis pedis pul - Left lower extremity Vascular exam: PRESENT: normal capillary refill. ABSENT: pallor GI/Abdominal exam: PRESENT: normal bowel sounds, soft Rectal exam: PRESENT: deferred Extremities exam: PRESENT: other - Status post right AKA, eschar noted over a small area of the incision.. 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 ABSENT: deformity, dislocation Neurological exam: PRESENT: alert, oriented to person, oriented to place, oriented to time, oriented to situation, motor sensory deficit - Right hand weakness, right facial weakness. ABSENT: CN II-XII grossly intact - Slow/deliberate, slightly slurred speech Psychiatric exam: PRESENT: appropriate affect, depressed Skin exam: PRESENT: dry, intact, warm. ABSENT: jaundice, rash, urticaria Results Laboratory Results: 05/16/19 16:57 05/16/19 18:40 05/16/19 05/16/19 05/16/19 16:57 16:57 18:40 WBC 9.7 RBC 4.00 Hgb 11.7 L Hct 34.0 L MCV 85 MCH 29.1 MCHC 34.3 RDW 13.5 Plt Count 253 Seg Neutrophils % 55.0 Sodium Cancelled 135.4 L Potassium Cancelled 5.4 H Chloride Cancelled 100 Carbon Dioxide Cancelled 23 Anion Gap Cancelled 12 BUN Cancelled 32 H Creatinine Cancelled 0.65 Est GFR ( Amer) Cancelled > 60 Est GFR (Non-Af Amer) Cancelled Glucose Cancelled 203 H Calcium Cancelled 10.1 Total Bilirubin Cancelled 0.8 AST Cancelled 15 Alkaline Phosphatase Cancelled 136 H Total Protein Cancelled 6.9 Albumin Cancelled 3.7 05/16/19 05/16/19 05/16/19 16:57 16:57 18:40 Creatine Kinase Cancelled CK-MB (CK-2) Cancelled 0.55 Troponin I Cancelled < 0.012 05/16/19 18:40 Creatine Kinase 24 L CK-MB (CK-2) Troponin I Impressions: Chest X-Ray 05/16/19 14:16 IMPRESSION: STABLE APPEARANCE OF THE CHEST. SUPPORT DEVICES UNCHANGED. Head CT 05/16/19 14:16 IMPRESSION: Stable left parietal infarct. No acute intracranial event. EVIDENCE OF ACUTE STROKE: NO. Assessment and Plan - Diagnosis (1) Left middle cerebral artery stroke Is this a current diagnosis for this admission?: Yes Plan: Patient will be admitted to the stroke protocol on [facility]. An MRI of the brain and an MRA of her carotid arteries will be obtained. An echocardiogram will also be obtained. Patient will be evaluated by PT, OT and speech therapy per stroke protocol. She will be continued on plavix during the evaluation. (2) Hyperkalemia Is this a current diagnosis for this admission?: Yes Plan: Patient's hyperkalemia will be treated initially by lowering her blood glucose with sliding scale insulin. Her potassium levels will be observed closely with daily metabolic profiles. (3) Dysthymia Is this a current diagnosis for this admission?: Yes Plan: A psychiatric/psychological consultation will be obtained to evaluate the patient during her hospital course. (4) Diabetes mellitus type 2 in nonobese Is this a current diagnosis for this admission?: Yes Plan: Patient will be continued on her usual diabetic therapeutic regiment and a diabetic diet. Sliding scale insulin will be used for hyperglycemia and a h ypoglycemic protocol will be in place for use with AC and at bedtime Accu-Cheks. Hemoglobin A1c will be obtained to evaluate the efficacy of her current therapy. (5) Hyperlipidemia associated with type 2 diabetes mellitus Is this a current diagnosis for this admission?: Yes Plan: A lipid profile will be obtained to evaluate the efficacy of current therapy. Patient will be continued on her usual lipid reduction regiment and a cardiac diet. (6) Hypertension Qualifiers: Hypertension type: essential hypertension Qualified Code(s): I10 - Essential (primary) hypertension Is this a current diagnosis for this admission?: Yes Plan: Patient will be continued on her usual antihypertensive therapy and her blood pressure will be monitored closely throughout her hospital course. - Time Time Spent with patient: 25-34 minutes Medications reviewed and adjusted accordingly: Yes Anticipated discharge: Home - Inpatient Certification Based on my medical assessment, after consideration of the patient's comorbidities, presenting symptoms, or acuity I expect that the services needed warrant INPATIENT care.: Yes I certify that my determination is in accordance with my understanding of Medicare's requirements for reasonable and necessary INPATIENT services [42 CFR 412.3e].: Yes Medical Necessity: Significant Comorbidiites Make Outpatient Treatment Too Risky, Need Close Monitoring Due to Risk of Patient Decompensation, Need For Continuous Telemetry Monitoring, Need for Neurological Checks, Risk of Complication if Not Cared For in Hospital, Risk of Diagnosis Which Will Require Inpatient Eval/Care/Monitoring
[2019-05-17 05:08] LABS: MEAN CORPUSCULAR HEMOGLOBIN 28.8 pg (27.0-33.4); MEAN CORPUSCULAR HGB CONC 34.1 g/dL (32.0-36.0); MEAN CORPUSCULAR VOLUME 85 fl (80-97); PLATELET COUNT 250 10^3/uL (150-450); RED BLOOD COUNT 4.15 10^6/uL (3.72-5.28); RED CELL DISTRIBUTION WIDTH 13.4 % (11.5-14.0); WHITE BLOOD COUNT 10.6 10^3/uL (4.0-10.5)
[2019-05-17 05:23] LABS: ANION GAP 12 (5-19); BLOOD UREA NITROGEN 32 mg/dL (7-20); CALCIUM 10.2 mg/dL (8.4-10.2); CARBON DIOXIDE 23 mmol/L (22-30); CHLORIDE 102 mmol/L (98-107); CHOLESTEROL 123.49 mg/dL (0-200); GLUCOSE 205 mg/dL (75-110); TRIGLYCERIDES 240 mg/dL (<150)
[2019-05-17] MEDS: GABAPENTIN 400 MG CAPSULE PO SCH ×3 (05:27→22:04)
[2019-05-17] MEDS: HEPARIN SOD (PORCINE) 5,000 UNIT/ML 1 ML VIAL SUBCUT SCH ×3 (05:28→22:05)
[2019-05-17 05:34] LABS: DIRECT LDL 58 mg/dL (<100)
[2019-05-17] MEDS ORDERED: LISINOPRIL 5 MG TABLET PO SCH (08:00)
[2019-05-17] MEDS: INSULIN REG, HUMAN 100 UNIT/ML 3 ML VIAL (PYX) SUBCUT SCH ×4 (08:30→22:05)
[2019-05-17] MEDS: ASPIRIN 81 MG TABLET, ENT COATED PO SCH (08:30)
[2019-05-17] MEDS: SITAGLIPTIN PHOSPHATE 50 MG TABLET PO SCH ×2 (08:30→16:30)
[2019-05-17] MEDS: METFORMIN HCL 500 MG TABLET PO SCH ×2 (09:54→17:16)
[2019-05-17] MEDS: BUPROPION HCL 75 MG TABLET PO SCH ×2 (09:54→22:04)
[2019-05-17] MEDS: MULTIVITAMIN TABLET PO SCH (09:54)
[2019-05-17] MEDS: CARVEDILOL 12.5 MG TABLET PO SCH ×2 (09:54→22:03)
[2019-05-17] MEDS: FUROSEMIDE 20 MG TABLET PO SCH (09:55)
[2019-05-17] MEDS: FAMOTIDINE 20 MG TABLET PO SCH ×2 (09:55→22:04)
[2019-05-17] MEDS: FERROUS SULFATE 325 MG TABLET PO SCH (09:55)
[2019-05-17] MEDS: CELECOXIB 100 MG CAPSULE PO SCH (09:56)
[2019-05-17] MEDS: COLLAGENASE CLOSTRIDIUM HIST. OINT 30 GM TOP SCH ×2 (09:56→22:07)
[2019-05-17] MEDS ORDERED: CLOPIDOGREL BISULFATE 75 MG TABLET PO SCH (10:00)
[2019-05-17] MEDS ORDERED: FAMOTIDINE 20 MG TABLET PO PRN (12:55)
[2019-05-17] MEDS ORDERED: ALBUTEROL SULFATE HFA (90 MCG/PUFF) 200 PUFF/8.5 GM MDI IH PRN (12:55)
--- NOTE | 2019-05-17 13:05 | PDOC PROGRESS REPORT ---
Subjective Progress Note for:: 05/17/19 Reason For Visit: ACUTE CVA Physical Exam Vital Signs: Temp Pulse Resp BP Pulse Ox 97.6 F 92 16 139/90 H 100 05/17/19 12:15 05/17/19 12:15 05/17/19 12:15 05/17/19 12:15 05/17/19 12:15 Intake & Output 05/16/19 05/17/19 05/18/19 06:59 06:59 06:59 Intake Total 180 237 Balance 180 237 Weight 114 lb 3.191 oz Exam: Patient is no acute distress Alert oriented to time place person No anxiety or depression Head: atraumatic normocephalic Pupils: are equal reactive Neck: is supple and trachea is central no lymphadenopathy No pharyngeal erythema or exudates Heart: Regular rate and rhythm Lungs: clear no distress Abdomen: nontender nondistended Neurological exam: Chronic mild right facial droop Musculoskeletal: No joint swelling or effusion chronic lower back pain and tenderness No suicidal or homicidal ideation Results Laboratory Results: 05/17/19 04:31 05/17/19 04:31 05/16/19 05/16/19 05/16/19 16:57 16:57 18:40 WBC 9.7 RBC 4.00 Hgb 11.7 L Hct 34.0 L MCV 85 MCH 29.1 MCHC 34.3 RDW 13.5 Plt Count 253 Seg Neutrophils % 55.0 Sodium Cancelled 135.4 L Potassium Cancelled 5.4 H Chloride Cancelled 100 Carbon Dioxide Cancelled 23 Anion Gap Cancelled 12 BUN Cancelled 32 H Creatinine Cancelled 0.65 Est GFR ( Amer) Cancelled > 60 Est GFR (Non-Af Amer) Cancelled Glucose Cancelled 203 H Calcium Cancelled 10.1 Total Bilirubin Cancelled 0.8 AST Cancelled 15 Alkaline Phosphatase Cancelled 136 H Total Protein Cancelled 6.9 Albumin Cancelled 3.7 Triglycerides Cholesterol LDL Cholesterol Direct VLDL Cholesterol HDL Cholesterol Urine Color Urine Appearance Urine pH Ur Specific Latta Urine Protein Urine Glucose (UA) Urine Ketones Urine Blood Urine Nitrite Ur Leukocyte Esterase Urine WBC (Auto) Urine RBC (Auto) 05/16/19 05/17/19 05/17/19 20:11 04:31 04:31 WBC 10.6 H RBC 4.15 Hgb 12.0 Hct 35.0 L MCV 85 MCH 28.8 MCHC 34.1 RDW 13.4 Plt Count 250 Seg Neutrophils % Sodium 137.0 Potassium 5.0 Chloride 102 Carbon Dioxide 23 Anion Gap 12 BUN 32 H Creatinine 0.78 Est GFR ( Amer) > 60 Est GFR (Non-Af Amer) Glucose 205 H Calcium 10.2 Total Bilirubin AST Alkaline Phosphatase Total Protein Albumin Triglycerides 240 H Cholesterol 123.49 LDL Cholesterol Direct 58 VLDL Cholesterol 48.0 H HDL Cholesterol 28 L Urine Color YELLOW Urine Appearance TURBID Urine pH 5.0 Ur Specific Latta 1.016 Urine Protein 30 H Urine Glucose (UA) 50 H Urine Ketones NEGATIVE Urine Blood MODERATE H Urine Nitrite NEGATIVE Ur Leukocyte Esterase LARGE H Urine WBC (Auto) >182 Urine RBC (Auto) 50 05/16/19 05/16/19 05/16/19 16:57 16:57 18:40 Creatine Kinase Cancelled CK-MB (CK-2) Cancelled 0.55 Troponin I Cancelled < 0.012 05/16/19 18:40 Creatine Kinase 24 L CK-MB (CK-2) Troponin I Impressions: Chest X-Ray 05/16/19 14:16 IMPRESSION: STABLE APPEARANCE OF THE CHEST. SUPPORT DEVICES UNCHANGED. Head CT 05/16/19 14:16 IMPRESSION: Stable left parietal infarct. No acute intracranial event. EVIDENCE OF ACUTE STROKE: NO. Assessment and Plan - Diagnosis (2) Dysthymia Is this a current diagnosis for this admission?: Yes (3) Hyperkalemia Is this a current diagnosis for this admission?: Yes (4) Diabetes mellitus type 2 in nonobese Is this a current diagnosis for this admission?: Yes (5) Hypertension Qualifiers: (6) Hyperlipidemia associated with type 2 diabetes mellitus Is this a current diagnosis for this admission?: Yes - Plan Summary Plan Summary: (1) Right hand weakness MRI of the brain and an MRA of her carotid arteries ordered on admission. An echocardiogram also ordered. PT, OT and speech therapy requested. She will be continued on plavix. (2) Hyperkalemia Patient's hyperkalemia treated initially by lowering her blood glucose with sliding scale insulin. Resolved. Continue to monitor. (3) Dysthymia A psychiatric/psychological consultation ordered on admission to evaluate the patient during her hospital course. (4) Diabetes mellitus type 2 in nonobese Continue her usual diabetic therapeutic regiment and a diabetic diet. Sliding scale insulin for hyperglycemia and a hypoglycemic protocol will be in place for use with AC and at bedtime Accu-Cheks. Hemoglobin A1c 9.9. (5) Hyperlipidemia associated with type 2 diabetes mellitus LDL 58. She is on atorvastatin (6) Hypertension Continue current medications. Monitor blood pressure. Patient has a loop recorder. This was done in an outside facility. We will contact the facility for records.
[2019-05-17 14:08] LABS: ANION GAP 13 (5-19); BLOOD UREA NITROGEN 33 mg/dL (7-20); CALCIUM 10.6 mg/dL (8.4-10.2); CARBON DIOXIDE 22 mmol/L (22-30); CHLORIDE 102 mmol/L (98-107); GLUCOSE 257 mg/dL (75-110); POTASSIUM 5.4 mmol/L (3.6-5.0)
--- NOTE | 2019-05-17 16:07 | RADIOLOGY REPORT (SQ) ---
EXAM DESCRIPTION: MRI HEAD WITHOUT COMPLETED DATE/TIME: 05/17/2019 3:20 pm REASON FOR STUDY: CVA acute Left MCA COMPARISON: MRI brain 06/07/2018, 06/14/2018 CT brain 05/16/2019 TECHNIQUE: Multiplanar imaging includes non-contrasted T1, T2, FLAIR, and diffusion with ADC map seq uences. Images stored on PACS. LIMITATIONS: None. FINDINGS: ANATOMY: No developmental anomalies. Normal vascular flow voids. Pituitary fossa normal. CSF SPACES: Normal in size and contour. No hemorrhage. CEREBRUM: Diffusion-weighted images are positive for acute ischemic change along the left posterior f rontal cortex and subcortical white matter, just ventral to the pre-existing infarct. These changes are best shown on diffusion weighted images 18 through 23. No superimposed acute hemorrhage. No sig nificant mass effect or midline shift. An old left posterior frontal cortical and subcortical white matter infarct present correlating with prior CT and brain MRI exams. POSTERIOR FOSSA: No signal alteration. No hemorrhage. No edema, masses or mass effect. Internal mavis tory canals, cerebello-pontine angles, mastoids normal. DIFFUSION IMAGING: Diffusion-weighted images are positive for acute ischemic change along the left po sterior frontal cortex and subcortical white matter, just ventral to the pre-existing infarct. These changes are best shown on diffusion weighted images 18 through 23. No superimposed acute hemorrhage . No significant mass effect or midline shift. ORBITS: No masses. Globes post bilateral cataract surgeries. PARANASAL SINUSES: No fluid levels. Mucosa normal. OTHER: No other significant finding. IMPRESSION: Acute nonhemorrhagic cortical and subcortical white matter infarcts in the left frontal lobe, immediately ventral to the chronic appearing previous infarct. EVIDENCE OF ACUTE STROKE: YES. TECHNICAL DOCUMENTATION: JOB ID: [id number]- All Rights Reserved Reading location - IP/workstation name: [facility]
[2019-05-17] MEDS: FLUTICASONE/VILANTEROL 100-25 MCG/DOSE IH SCH (16:30)
[2019-05-17] MEDS: INSULIN GLARGINE,HUM.REC.ANLOG 1,000 UNIT/10 ML VIAL SUBCUT SCH (17:17)
[2019-05-17] MEDS ORDERED: (PENDING PHARMACY ID) (Mometasone/Formoterol [Dulera 100 Mcg/5 Mcg Inhaler] 2 PUFF) IH SCH (18:00)
--- NOTE | 2019-05-17 18:44 | PSYCHOLOGICAL NOTE ---
Psych Note - Psych Note Date seen by psych provider: 05/17/19 Time seen by psych provider: 16:00 Psych Note: Patient also notes that she has been feeling quite depressed since she had 3 strokes and an [id number] amputation over the past year. Patient states that every night she prays that the Lord will take her in her sleep because she does not want to live like this. Denies any desire to hurt herself, denies any attempts to hurt herself. States she thinks she needs to have her antidepressants adjusted. She disclosed she is Judaism so would never hurt herself. She states extreme depression due to her medical conditions. Medication recommendations per [facility]'s contracted psychiatrist Dr. Jennie GAR are as follows Please decrease 75mg daily for 5 daily then discontinue Please decrease melatonin to 5mg at bedtime as needed Please discontinue Restoril Tegretol 100mg twice daily impression/plan: Patient is cleared from acute psychiatric services. Patient does not meet IVC criteria per [place] GS 122C. She discloses passive suicidal ideation ie no plans means or intent. Dr. Cartwright was consulted on the care and management of this patient.
[2019-05-17] MEDS ORDERED: CLONIDINE HCL 0.1 MG TABLET PO SCH (22:00)
[2019-05-17] MEDS: MONTELUKAST SODIUM 10 MG TABLET PO SCH (22:03)
[2019-05-17] MEDS: MELATONIN 5 MG TABLET PO SCH (22:03)
[2019-05-17] MEDS: ATORVASTATIN CALCIUM 80 MG TABLET PO SCH (22:04)
[2019-05-18] MEDS ORDERED: RINGERS SOLUTION,LACTATED 1,000 ML IV ONE ×2 (01:30→05:45)
[2019-05-18] MEDS: GABAPENTIN 400 MG CAPSULE PO SCH ×3 (05:05→22:58)
[2019-05-18] MEDS: PANTOPRAZOLE SODIUM 20 MG TABLET.DR PO SCH (05:05)
[2019-05-18] MEDS: HEPARIN SOD (PORCINE) 5,000 UNIT/ML 1 ML VIAL SUBCUT SCH ×3 (05:06→23:00)
[2019-05-18 05:27] LABS: HEMATOCRIT 31.5 % (36.0-47.0); MEAN CORPUSCULAR HEMOGLOBIN 29.5 pg (27.0-33.4); MEAN CORPUSCULAR HGB CONC 34.7 g/dL (32.0-36.0); MEAN CORPUSCULAR VOLUME 85 fl (80-97); PLATELET COUNT 248 10^3/uL (150-450); RED BLOOD COUNT 3.71 10^6/uL (3.72-5.28); RED CELL DISTRIBUTION WIDTH 13.5 % (11.5-14.0); WHITE BLOOD COUNT 10.5 10^3/uL (4.0-10.5)
[2019-05-18] MEDS ORDERED: DOPAMINE HCL 800 MG/D5W 250 ML IV PRN (05:43)
[2019-05-18] MEDS ORDERED: DOPAMINE HCL/DEXTROSE 5%-WATER 800 MG/250 ML RTUINJ IV PRN (06:01)
[2019-05-18] MEDS: INSULIN REG, HUMAN 100 UNIT/ML 3 ML VIAL (PYX) SUBCUT SCH ×4 (10:08→22:58)
--- NOTE | 2019-05-18 10:18 | PDOC PROGRESS REPORT ---
Subjective Progress Note for:: 05/18/19 Subjective:: 05/18: Patient was seen and examined. Apparently her blood pressure dropped overnight and she was started on low-dose dopamine drip. Currently blood pressure improved. Her symptoms have not changed. She received boluses of lactated Ringer's solution and her potassium now elevated 5.4. MRI shows left frontal infarcts. Reason For Visit: ACUTE CVA Physical Exam Vital Signs: Temp Pulse Resp BP Pulse Ox 97.5 F 92 16 90/46 L 100 05/18/19 08:12 05/18/19 10:04 05/18/19 08:12 05/18/19 10:04 05/18/19 08:12 Intake & Output 05/17/19 05/18/19 05/19/19 06:59 06:59 06:59 Intake Total 617 843 3037 Balance 480 132 1516 Weight 114 lb 3.191 oz 123 lb 3.814 oz Exam: Patient is no acute distress Alert oriented to time place person No anxiety or depression Head: atraumatic normocephalic Pupils: are equal reactive Neck: is supple and trachea is central no lymphadenopathy No pharyngeal erythema or exudates Heart: Regular rate and rhythm Lungs: clear no distress Abdomen: nontender nondistended Neurological exam: Chronic mild right facial droop Musculoskeletal: No joint swelling or effusion chronic lower back pain and tenderness No suicidal or homicidal ideation Results Laboratory Results: 05/18/19 04:57 05/17/19 13:31 05/17/19 05/18/19 13:31 04:57 WBC 10.5 RBC 3.71 L Hgb 11.0 L Hct 31.5 L MCV 85 MCH 29.5 MCHC 34.7 RDW 13.5 Plt Count 248 Sodium 136.9 L Potassium 5.4 H Chloride 102 Carbon Dioxide 22 Anion Gap 13 BUN 33 H Creatinine 0.81 Est GFR ( Amer) > 60 Glucose 257 H Calcium 10.6 H 05/16/19 05/16/19 05/16/19 16:57 16:57 18:40 Creatine Kinase Cancelled CK-MB (CK-2) Cancelled 0.55 Troponin I Cancelled < 0.012 05/16/19 18:40 Creatine Kinase 24 L CK-MB (CK-2) Troponin I Impressions: Chest X-Ray 05/16/19 14:16 IMPRESSION: STABLE APPEARANCE OF THE CHEST. SUPPORT DEVICES UNCHANGED. Head CT 05/16/19 14:16 IMPRESSION: Stable left parietal infarct. No acute intracranial event. EVIDENCE OF ACUTE STROKE: NO. Head MRI 05/17/19 00:00 IMPRESSION: Acute nonhemorrhagic cortical and subcortical white matter infarcts in the left frontal lobe, immediately ventral to the chronic appearing previous infarct. EVIDENCE OF ACUTE STROKE: YES. Assessment and Plan - Diagnosis (1) Acute ischemic stroke Is this a current diagnosis for this admission?: Yes (3) Dysthymia Is this a current diagnosis for this admission?: Yes (4) Hyperkalemia Is this a current diagnosis for this admission?: Yes (5) Diabetes mellitus type 2 in nonobese Is this a current diagnosis for this admission?: Yes (6) Hypertension Qualifiers: (7) Hyperlipidemia associated with type 2 diabetes mellitus Is this a current diagnosis for this admission?: Yes - Plan Summary Plan Summary: (1) acute stroke MRI of the brain positive for left frontal infarcts. Follow-up carotid ultrasound and echocardiogram. Discussed with nursing staff and will call [employer] to interrogate the loop recorder. PT, OT and speech therapy req uested. She will be continued on aspirin and Plavix and statin. Avoid hypotension. We will start IV fluids. Okay to discontinue very low-dose dopamine drip. (2) Hyperkalemia Patient's hyperkalemia treated initially by lowering her blood glucose with sliding scale insulin. Patient received boluses of lactated Ringer's last night. Will will give Kayexalate since potassium is elevated again today. (3) Dysthymia Patient was seen by psychiatry and cleared. (4) Diabetes mellitus type 2 in nonobese Continue her usual diabetic therapeutic regiment and a diabetic diet. Sliding scale insulin for hyperglycemia and a hypoglycemic protocol will be in place for use with AC and at bedtime Accu-Cheks. Hemoglobin A1c 9.9. (5) Hyperlipidemia associated with type 2 diabetes mellitus LDL 58. She is on atorvastatin (6) Hypertension Hold all antihypertensive medications since she is hypertensive at the moment. Monitor blood pressure.
[2019-05-18] MEDS: FLUTICASONE/VILANTEROL 100-25 MCG/DOSE IH SCH (10:36)
[2019-05-18] MEDS: FERROUS SULFATE 325 MG TABLET PO SCH (10:36)
[2019-05-18] MEDS: COLLAGENASE CLOSTRIDIUM HIST. OINT 30 GM TOP SCH ×2 (10:36→23:01)
[2019-05-18] MEDS: MULTIVITAMIN TABLET PO SCH (10:36)
[2019-05-18] MEDS: CELECOXIB 100 MG CAPSULE PO SCH (10:36)
[2019-05-18] MEDS: BUPROPION HCL 75 MG TABLET PO SCH ×2 (10:37→22:59)
[2019-05-18] MEDS: SITAGLIPTIN PHOSPHATE 50 MG TABLET PO SCH ×2 (10:37→17:20)
[2019-05-18] MEDS: ASPIRIN 81 MG TABLET, ENT COATED PO SCH (10:37)
[2019-05-18] MEDS: NORMAL SALINE 1000 ML 1,000 ML IV PRN ×2 (10:37→23:23)
[2019-05-18] MEDS: CLOPIDOGREL BISULFATE 75 MG TABLET PO SCH (10:37)
[2019-05-18] MEDS: METFORMIN HCL 500 MG TABLET PO SCH ×2 (10:37→17:20)
[2019-05-18] MEDS: FUROSEMIDE 20 MG TABLET PO SCH (10:41)
[2019-05-18] MEDS ORDERED: SODIUM POLYSTYRENE SULFONATE 15 GM/60 ML PO ONE (11:00)
[2019-05-18 11:08] LABS: ANION GAP 10 (5-19); BLOOD UREA NITROGEN 49 mg/dL (7-20); CALCIUM 10.3 mg/dL (8.4-10.2); CARBON DIOXIDE 24 mmol/L (22-30); CHLORIDE 102 mmol/L (98-107); GLUCOSE 126 mg/dL (75-110); POTASSIUM 5.4 mmol/L (3.6-5.0)
[2019-05-18] MEDS: INSULIN GLARGINE,HUM.REC.ANLOG 1,000 UNIT/10 ML VIAL SUBCUT SCH (17:21)
[2019-05-18] MEDS: ATORVASTATIN CALCIUM 80 MG TABLET PO SCH (22:58)
[2019-05-18] MEDS: MONTELUKAST SODIUM 10 MG TABLET PO SCH (22:59)
[2019-05-18] MEDS: MELATONIN 5 MG TABLET PO SCH (22:59)
[2019-05-19 05:23] LABS: HEMATOCRIT 30.2 % (36.0-47.0); HEMOGLOBIN 10.6 g/dL (12.0-15.5); MEAN CORPUSCULAR HEMOGLOBIN 29.5 pg (27.0-33.4); MEAN CORPUSCULAR VOLUME 84 fl (80-97); PLATELET COUNT 208 10^3/uL (150-450); RED BLOOD COUNT 3.59 10^6/uL (3.72-5.28); RED CELL DISTRIBUTION WIDTH 13.4 % (11.5-14.0); WHITE BLOOD COUNT 7.1 10^3/uL (4.0-10.5)
[2019-05-19] MEDS: PANTOPRAZOLE SODIUM 20 MG TABLET.DR PO SCH (05:34)
[2019-05-19] MEDS: HEPARIN SOD (PORCINE) 5,000 UNIT/ML 1 ML VIAL SUBCUT SCH ×3 (05:35→21:28)
[2019-05-19] MEDS: GABAPENTIN 400 MG CAPSULE PO SCH ×3 (05:35→21:28)
[2019-05-19 05:38] LABS: ANION GAP 10 (5-19); CALCIUM 9.2 mg/dL (8.4-10.2); CARBON DIOXIDE 23 mmol/L (22-30); CHLORIDE 106 mmol/L (98-107); GLUCOSE 114 mg/dL (75-110); POTASSIUM 4.6 mmol/L (3.6-5.0)
[2019-05-19 05:52] LABS: BLOOD UREA NITROGEN 26 mg/dL (7-20)
[2019-05-19] MEDS: INSULIN REG, HUMAN 100 UNIT/ML 3 ML VIAL (PYX) SUBCUT SCH ×4 (07:56→22:00)
[2019-05-19] MEDS: ASPIRIN 81 MG TABLET, ENT COATED PO SCH (08:03)
[2019-05-19] MEDS: CELECOXIB 100 MG CAPSULE PO SCH (08:03)
[2019-05-19] MEDS: SITAGLIPTIN PHOSPHATE 50 MG TABLET PO SCH ×2 (08:03→16:09)
[2019-05-19] MEDS: FLUTICASONE/VILANTEROL 100-25 MCG/DOSE IH SCH (10:35)
[2019-05-19] MEDS: METFORMIN HCL 500 MG TABLET PO SCH ×2 (10:35→17:18)
[2019-05-19] MEDS: FERROUS SULFATE 325 MG TABLET PO SCH (10:35)
[2019-05-19] MEDS: FUROSEMIDE 20 MG TABLET PO SCH (10:35)
[2019-05-19] MEDS: CLOPIDOGREL BISULFATE 75 MG TABLET PO SCH (10:35)
[2019-05-19] MEDS: BUPROPION HCL 75 MG TABLET PO SCH ×2 (10:35→21:27)
[2019-05-19] MEDS: MULTIVITAMIN TABLET PO SCH (10:35)
[2019-05-19] MEDS: COLLAGENASE CLOSTRIDIUM HIST. OINT 30 GM TOP SCH ×2 (10:36→21:31)
--- NOTE | 2019-05-19 12:13 | PDOC PROGRESS REPORT ---
Subjective Progress Note for:: 05/19/19 Subjective:: 05/18: Patient was seen and examined. Apparently her blood pressure dropped overnight and she was started on low-dose dopamine drip. Currently blood pressure improved. Her symptoms have not changed. She received boluses of lactated Ringer's solution and her potassium now elevated 5.4. MRI shows left frontal infarcts. 05/19: No clinical changes. Awaiting echocardiogram and carotid ultrasound results. Patient may need rehab on discharge. Reason For Visit: ACUTE CVA Physical Exam Vital Signs: Temp Pulse Resp BP Pulse Ox 97.5 F 95 16 159/91 H 100 05/19/19 03:19 05/19/19 07:00 05/19/19 03:19 05/19/19 03:21 05/19/19 03:19 Intake & Output 05/18/19 05/19/19 05/20/19 06:59 06:59 06:59 Intake Total 437 3298 Output Total 1625 Balance 437 1673 Weight 123 lb 3.814 oz 121 lb 11.123 oz Exam: Patient is no acute distress Alert oriented to time place person No anxiety or depression Head: atraumatic normocephalic Pupils: are equal reactive Neck: is supple and trachea is central no lymphadenopathy No pharyngeal erythema or exudates Heart: Regular rate and rhythm Lungs: clear no distress Abdomen: nontender nondistended Neurological exam: Chronic mild right facial droop Musculoskeletal: No joint swelling or effusion chronic lower back pain and tenderness. Right above-knee amputation. No suicidal or homicidal ideation Results Laboratory Results: 05/19/19 04:15 05/19/19 04:15 05/19/19 05/19/19 04:15 04:15 WBC 7.1 RBC 3.59 L Hgb 10.6 L Hct 30.2 L MCV 84 MCH 29.5 MCHC 35.0 RDW 13.4 Plt Count 208 Sodium 138.8 Potassium 4.6 Chloride 106 Carbon Dioxide 23 Anion Gap 10 BUN 26 H D Creatinine 0.70 Est GFR ( Amer) > 60 Glucose 114 H Calcium 9.2 05/16/19 05/16/19 05/16/19 16:57 16:57 18:40 Creatine Kinase Cancelled CK-MB (CK-2) Cancelled 0.55 Troponin I Cancelled < 0.012 05/16/19 18:40 Creatine Kinase 24 L CK-MB (CK-2) Troponin I Impressions: Chest X-Ray 05/16/19 14:16 IMPRESSION: STABLE APPEARANCE OF THE CHEST. SUPPORT DEVICES UNCHANGED. Head CT 05/16/19 14:16 IMPRESSION: Stable left parietal infarct. No acute intracranial event. EVIDENCE OF ACUTE STROKE: NO. Head MRI 05/17/19 00:00 IMPRESSION: Acute nonhemorrhagic cortical and subcortical white matter infarcts in the left frontal lobe, immediately ventral to the chronic appearing previous infarct. EVIDENCE OF ACUTE STROKE: YES. Assessment and Plan - Diagnosis (1) Acute ischemic stroke Is this a current diagnosis for this admission?: Yes (3) Dysthymia Is this a current diagnosis for this admission?: Yes (4) Hyperkalemia Is this a current diagnosis for this admission?: Yes (5) Diabetes mellitus type 2 in nonobese Is this a current diagnosis for this admission?: Yes (6) Hypertension Qualifiers: (7) Hyperlipidemia associated with type 2 diabetes mellitus Is this a current diagnosis for this admission?: Yes - Plan Summary Plan Summary: (1) acute stroke MRI of the brain positive for left frontal infarcts. Follow-up carotid ultrasound and echocardiogram. Discussed with nursing staff and will call [id number] to interrogate the loop recorder. PT, OT and speech therapy requested. She will be continued on aspirin and Plavix and statin. Will stop IV fluids. (2) Hyperkalemia Patient's hyperkalemia treated initially by lowering her blood glucose with sliding scale insulin. Patient received boluses of lactated Ringer's. Status post Kayexalate. Potassium now is normal. (3) Dysthymia Patient was seen by psychiatry and cleared. (4) Diabetes mellitus type 2 in nonobese Continue her usual diabetic therapeutic regiment and a diabetic diet. Sliding scale insulin for hyperglycemia and a hypoglycemic protocol will be in place for use with AC and at bedtime Accu-Cheks. Hemoglobin A1c 9.9. (5) Hyperlipidemia associated with type 2 diabetes mellitus LDL 58. She is on atorvastatin (6) Hypertension Continue to monitor blood pressure. May restart antihypertensive medications when appropriate.
--- NOTE | 2019-05-19 12:33 | RADIOLOGY REPORT (SQ) ---
EXAM DESCRIPTION: CAROTID DOPPLER COMPLETED DATE/TIME: 05/19/2019 12:19 pm REASON FOR STUDY: stroke COMPARISON: 06/08/2018. TECHNIQUE: Grayscale ultrasound, Doppler velocity and spectra, and color Doppler images acquired of the extra-cranial carotid and vertebral arteries. Images stored on PACS. LIMITATIONS: None. FINDINGS: RIGHT CAROTID CCA Velocities: Within normal limits. ICA Velocities Peak systolic 1.69 m/s. End diastolic 0.57 m/s. Proximal ICA/CCA peak systolic ratio 1.2. Heterogenous plaque. LEFT CAROTID CCA Velocities: Within normal limits. ICA Velocities Complete occlusion. Heterogenous plaque. VERTEBRAL ARTERIES: Antegrade flow. Normal waveforms. SUBCLAVIAN ARTERIES: No finding. OTHER: No other significant finding. IMPRESSION: 1. COMPLETE OCCLUSION OF THE LEFT INTERNAL CAROTID ARTERY. 2. 50- 69% STENOSIS OF THE RIGHT INTERNAL CAROTID ARTERY. THIS HAS PROGRESSED SINCE THE PRIOR STUDY. COMMENT: Quality ID #[id number]: Velocity criteria are extrapolated from the diameter data as defined by t he Society of Radiologists in Ultrasound Consensus Conference. Radiology 2003: 229; 340-346. TECHNICAL DOCUMENTATION: JOB ID: [id number] [employer]- All Rights Reserved Reading location - IP/workstation name: [email or web address]
[2019-05-19] MEDS: INSULIN GLARGINE,HUM.REC.ANLOG 1,000 UNIT/10 ML VIAL SUBCUT SCH (17:18)
--- NOTE | 2019-05-19 20:05 | XCELERA REPORT ---
[address] [address] Transthoracic Echocardiogram Report Name: DUSTIN MALDONADO Age: 58 yrs Gender: Female : 1960 Patient Status: Inpatient Patient Location: [address] [place] [address] Study Date: 05/19/2019 09:43 AM Height: 61 in Weight: 121 lb BSA: 1.5 m2 Procedure: A two-dimensional transthoracic echocardiogram with color flow and Doppler was performed. Study Quality: Fair. Reason For Study: CVA History: CVA. Ordering Physician: MOE REGALADO Performed By: Elidia Conner Interpretation Summary The left ventricle is normal in size. There is normal left ventricular wall thickness. LV EF is 65% The left ventricular ejection fraction is within normal limits. Doppler measurements suggest pseudonormalized left ventricular relaxation, which is associated with grade II/IV or mild to moderate diastolic dysfunction The left ventricular wall motion is normal. There is no thrombus. No ASD ,VSD , or PFO seen. The right ventricle is not well visualized secondary to technical limitations The right atrium is normal. The left atrium is mildly dilated. There is no evidence of mitral valve prolapse. There is no vegetation seen on the mitral valve. There is no mitral valve stenosis. There is a trace amount of mitral regurgitation There is no aortic valvular vegetation. There is aortic sclerosis without aortic stenosis. There is no LVOT obstruction. No aortic regurgitation is present. There is no tricuspid stenosis. There is a trace to mild amount of tricuspid regurgitation There is mild pulmonary hypertension by echo RVSP is 41 to 46 mm of Hg with RA mean of 5 to 10. There is no pulmonic valvular stenosis. There is a trace amount of pulmonic regurgitation The aortic root is normal size. The inferior vena cava appeared normal and decreased > 50% with respiration (RAP 5-10 mmHg) There is no pericardial effusion. MMode/2D Measurements & Calculations RVDd: 3.7 cm LVIDd: 4.5 cm FS: 29.2 % Ao root diam: 2.4 cm IVSd: 1.1 cm LVIDs: 3.2 cm EDV(Teich): Ao root area: LVPWd: 1.1 cm 91.6 ml 4.4 cm2 ESV(Teich): LA dimension: 4.1 cm 40.1 ml EF(Teich): 56.2 % LVLd ap4: 6.8 cm SV(MOD-sp4): EDV(MOD-sp4): 27.0 ml 54.0 ml LVLs ap4: 6.0 cm ESV(MOD-sp4): 27.0 ml EF(MOD-sp4): 50.0 % Doppler Measurements & Calculations MV E max xavier: MV P1/2t max xavier: Ao V2 max: LV V1 max P.3 cm/sec 89.3 cm/sec 160.8 cm/sec 5.6 mmHg MV A max xavier: MV P1/2t: 41.5 msec Ao max PG: LV V1 max: 119.0 cm/sec MVA(P1/2t): 5.3 cm2 10.3 mmHg 118.5 cm/sec MV E/A: 0.75 MV dec slope: 630.8 cm/sec2 MV dec time: 0.12 sec PA V2 max: TR max xavier: MV P1/2t-pr_phl: 99.7 cm/sec 298.6 cm/sec 41.5 msec PA max P.0 mmHgTR max P.7 mmHg Left Ventricle The left ventricle is normal in size. There is normal left ventricular wall thickness. LV EF is 65%. The left ventricular ejection fraction is within normal limits. Doppler measurements suggest pseudonormalized left ventricular relaxation, which is associated with grade II/IV or mild to moderate diastolic dysfunction. The left ventricular wall motion is normal. There is no thrombus. No ASD ,VSD , or PFO seen. Right Ventricle The right ventricle is not well visualized secondary to technical limitations. Atria The right atrium is normal. The left atrium is mildly dilated. Mitral Valve There is no evidence of mitral valve prolapse. There is no vegetation seen on the mitral valve. There is no mitral valve stenosis. There is a trace amount of mitral regurgitation. Aortic Valve There is no aortic valvular vegetation. There is aortic sclerosis without aortic stenosis. There is no LVOT obstruction. No aortic regurgitation is present. Tricuspid Valve There is no tricuspid stenosis. There is a trace to mild amount of tricuspid regurgitation. There is mild pulmonary hypertension by echo. RVSP is 41 to 46 mm of Hg with RA mean of 5 to 10. Pulmonic Valve There is no pulmonic valvular stenosis. There is a trace amount of pulmonic regurgitation. Great Vessels The aortic root is normal size. The inferior vena cava appeared normal and decreased > 50% with respiration (RAP 5-10 mmHg). Effusions There is no pericardial effusion. : MOE REGALADO Lakshmi
[2019-05-19] MEDS: ATORVASTATIN CALCIUM 80 MG TABLET PO SCH (21:27)
[2019-05-19] MEDS: MELATONIN 5 MG TABLET PO SCH (21:28)
[2019-05-19] MEDS: MONTELUKAST SODIUM 10 MG TABLET PO SCH (21:28)
[2019-05-20] MEDS: HEPARIN SOD (PORCINE) 5,000 UNIT/ML 1 ML VIAL SUBCUT SCH ×2 (06:02→13:17)
[2019-05-20] MEDS: PANTOPRAZOLE SODIUM 20 MG TABLET.DR PO SCH (06:02)
[2019-05-20] MEDS: GABAPENTIN 400 MG CAPSULE PO SCH ×2 (06:02→13:18)
--- NOTE | 2019-05-20 08:53 | PSYCHOLOGICAL NOTE ---
Psych Note - Psych Note Date seen by psych provider: 05/20/19 Time seen by psych provider: 08:34 - Phone call from hospitalist Psych Note: Hospitalist called to inquire about medication recommendations from 05/17/19 that had not been applied yet. Specifically the first medication which did not specify which medication. For clarification that medication is: Decrease Wellbutrin to 75MG daily for 5 days then discontinue Decrease Melatonin to 5mg at bedtime as needed Discontinue Restoril Add Tegretol 100mg twice a day Impression/Plan: Patient is still psychiatrically cleared. Once medications have been utilized if there are further needs please re consult the [facility] team. Thank you.
[2019-05-20] MEDS: MULTIVITAMIN TABLET PO SCH (09:11)
[2019-05-20] MEDS: ASPIRIN 81 MG TABLET, ENT COATED PO SCH (09:11)
[2019-05-20] MEDS: BUPROPION HCL 75 MG TABLET PO SCH (09:11)
[2019-05-20] MEDS: SITAGLIPTIN PHOSPHATE 50 MG TABLET PO SCH (09:11)
[2019-05-20] MEDS: METFORMIN HCL 500 MG TABLET PO SCH (09:11)
[2019-05-20] MEDS: CELECOXIB 100 MG CAPSULE PO SCH (09:11)
[2019-05-20] MEDS: FUROSEMIDE 20 MG TABLET PO SCH (09:11)
[2019-05-20] MEDS: FERROUS SULFATE 325 MG TABLET PO SCH (09:11)
[2019-05-20] MEDS: CLOPIDOGREL BISULFATE 75 MG TABLET PO SCH (09:11)
[2019-05-20] MEDS: INSULIN REG, HUMAN 100 UNIT/ML 3 ML VIAL (PYX) SUBCUT SCH ×2 (09:12→13:18)
[2019-05-20] MEDS: COLLAGENASE CLOSTRIDIUM HIST. OINT 30 GM TOP SCH (09:12)
[2019-05-20] MEDS: FLUTICASONE/VILANTEROL 100-25 MCG/DOSE IH SCH (09:12)
[2019-05-20] MEDS ORDERED: CARBAMAZEPINE 100 MG TAB.CHEW PO SCH ×2 (10:00)
[2019-05-20 15:38] VITALS: BP 155/79
[2019-05-20] MEDS ORDERED: MELATONIN 5 MG TABLET PO SCH (22:00)
--- NOTE | 2019-05-21 21:23 | PDOC DISCHARGE SUMMARY ---
Impression - Admit/DC Date/PCP Admission Date/Primary Care Provider: 05/16/19 20:24 KATT RAMSEY PA-C Discharge Date: 05/20/19 - Discharge Diagnosis (1) Acute ischemic stroke Is this a current diagnosis for this admission?: Yes (2) Diabetes mellitus type 2 in nonobese Is this a current diagnosis for this admission?: Yes (3) Dysthymia Is this a current diagnosis for this admission?: Yes (4) Hyperkalemia Is this a current diagnosis for this admission?: Yes (5) Hyperlipidemia associated with type 2 diabetes mellitus Is this a current diagnosis for this admission?: Yes (6) Hypertension Is this a current diagnosis for this admission?: Yes - Additional Information Resuscitation Status: Full Code Discharge Diet: Cardiac, Diabetic Discharge Activity: Activity As Tolerated, Balance Activity w/Rest, Slowly Increase Activity Referrals: KATT RAMSEY PA-C [Primary Care Provider] - 05/22/19 1:45 pm Prescriptions: Melatonin [Melatonin 5 mg Tablet] 5 mg PO QHS #30 tablet Carbamazepine [Tegretol 100 mg Chewable Tablet] 100 mg PO DAILY #60 tab.chew Home Medications: Albuterol Sulfate [Proair HFA Inhalation Aerosol 8.5 gm MDI] 2 puff IH Q6HP PRN 05/16/19 Aspirin [Adult Low Dose Aspirin EC] 81 mg PO QAM 05/16/19 Atorvastatin Calcium [Lipitor 80 mg Tablet] 80 mg PO QAM 05/16/19 Bupropion HCl [Wellbutrin Xl 150 mg 24hr Tablet] 150 mg PO QAM 05/16/19 Carvedilol [Coreg 12.5 mg Tablet] 12.5 mg PO Q12 05/16/19 Celecoxib [Celebrex 100 mg Capsule] 100 mg PO QAM 05/16/19 Clonidine HCl [Catapres 0.1 mg Tablet] 0.1 mg PO QHS 05/16/19 Clopidogrel Bisulfate [Plavix 75 mg Tablet] 75 mg PO DAILY 05/16/19 Collagenase Clostridium Hist. [Santyl Ointment 30 gm] 1 applic TOP Q12 05/16/19 Famotidine [Pepcid 20 mg Tablet] 20 mg PO DAILYP PRN 05/16/19 Ferrous Sulfate [Feosol 325 mg Tablet] 325 mg PO BID 05/16/19 Furosemide [Lasix 20 mg Tablet] 20 mg PO DAILY 05/16/19 Gabapentin [Neurontin 400 mg Capsule] 400 mg PO Q8 05/16/19 Insulin Glargine,Hum.rec.anlog [Lantus Insulin 100 Unit/1 ml 10 ml] 10 units SQ QPM 05/16/19 Lisinopril [Zestril] 5 mg PO QAM 05/16/19 Metformin HCl [Glucophage 500 mg Tablet] 500 mg PO BID 05/16/19 Mometasone/Formoterol [Dulera 100 Mcg/5 Mcg Inhaler] 2 puff IH BID 05/16/19 Montelukast Sodium [Singulair 10 mg Tablet] 10 mg PO QHS 05/16/19 Multivitamin [Multiple Vitamins] 1 tab PO DAILY 05/16/19 Omeprazole 20 mg PO QAM 05/16/19 Sitagliptin Phosphate [Januvia] 100 mg PO QAM 05/16/19 Acetaminophen [Tylenol 325 mg Tablet] 650 mg PO Q4HP PRN tablet 05/20/19 Carbamazepine [Tegretol 100 mg Chewable Tablet] 100 mg PO DAILY #60 tab.chew 05/20/19 Melatonin [Melatonin 5 mg Tablet] 5 mg PO QHS #30 tablet 05/20/19 History of Present Illiness History of Present Illness: Review by Dr. Mejía: DUSTIN MALDONADO is a 58 year old female with a 3-day history of right hand weakness. Patient admits having a sudden onset of decreased strength in her right hand beginning on 05/13/2019 and being continuously present since onset. The right hand weakness was accompanied by a sensation of numbness in her right fingers which has been continuously present over the same interval. At 7 AM this morning patient was noted by her son to have new slowing and slight slurring of her speech with an increase in her right facial droop. She denies other associated or accompanying signs or symptoms. She admits prior similar episodes with several strokes in the past. She further admits to chronic right facial weakness following a previous stroke however her current symptoms are an increase over her baseline level. She has not identified any aggravating or ameliorating factors for her right hand weakness. In the emergency room patient was found to have no evidence of acute stroke or intracranial hemorrhage on a CT scan. She was subsequently admitted to [facility] and the stroke protocol. Hospital [facility] Hospital Course: The patient was admitted to [facility] on continuous cardiac telemetry for stroke evaluation. Laboratory evaluation revealed baseline anemia, normal coags, and benign chemistry. She was noted to have an elevated A1c of 9.9%; significantly worse than prior 6.2% in December of this year. Dietary medication compliance was strongly encouraged. No medication adjustments regarding her diabetic management were made at this time. The patient's lipid panel revealed low HDL, high triglycerides, acceptable LDL. She is discharged home on atorvastatin; again, dietary compliance was encouraged. EKG admission showed normal sinus rhythm; she was monitored on continuous cardiac telemetry, no abnormal rhythms were noted. Echocardiogram demonstrated LVEF of 65% with mild to moderate left ventricular diastolic dysfunction, mild pulmonary hypertension. No cardiac/embolic source of the CVA were identified. As the patient remained in normal sinus rhythm and has no history of atrial fibrillation, PE was not indicated at this time. Carotid Doppler revealed complete occlusion of the left internal carotid artery with 50 to 69% stenosis of the right internal carotid artery which is progressed prior study. The patient and family member were advised of recommendation for follow-up appointment with vascular surgery in 6 to 8 weeks to establish care and arrange for continued monitoring. Attempts were made to interrogate the patient's loop recorder. Unfortunately, her device was reset during the MRI. Nursing reports a further conversation with the [employer] revealed that the patient has never appropriately followed up with the company to register her device. She was encouraged to make follow-up appointment with her established service and repair supervisor recently recorder and to remain compliant with follow-up appointment, intervention, diet, and medication recommendations. At time of discharge, the patient was in stable condition, have returned to her baseline mental and functional status, and maintaining oxygen saturations on room air. She is discharged home with home health nursing, Occupational Therapy, and social work services. She is instructed to follow-up with her primary care provider and establish service and repair supervisor. She is encouraged to make arrangements to be seen by a vascular s urgeon to monitor her evaluate for possible endarterectomy. She is advised to follow a consistent carb/cardiac diet. She is instructed take all medications as prescribed. She is encouraged to return to emergency department as needed for any concerning symptoms. Physical Exam Vital Signs: Temp Pulse Resp BP Pulse Ox 98.8 F 116 H 18 155/79 H 98 05/20/19 15:36 05/20/19 15:36 05/20/19 15:36 05/20/19 15:36 05/20/19 15:36 Intake & Output 05/20/19 05/21/19 05/22/19 06:59 06:59 06:59 Intake Total 1355 480 Balance 1355 480 Weight 51 kg Results Laboratory Results: WBC 7.1 10^3/uL (4.0-10.5) 05/19/19 04:15 RBC 3.59 10^6/uL (3.72-5.28) L 05/19/19 04:15 Hgb 10.6 g/dL (12.0-15.5) L 05/19/19 04:15 Hct 30.2 % (36.0-47.0) L 05/19/19 04:15 MCV 84 fl (80-97) 05/19/19 04:15 MCH 29.5 pg (27.0-33.4) 05/19/19 04:15 MCHC 35.0 g/dL (32.0-36.0) 05/19/19 04:15 RDW 13.4 % (11.5-14.0) 05/19/19 04:15 Plt Count 208 10^3/uL (150-450) 05/19/19 04:15 Lymph % (Auto) 34.1 % (13-45) 05/16/19 16:57 Bullitt % (Auto) 6.9 % (3-13) 05/16/19 16:57 Eos % (Auto) 2.7 % (0-6) 05/16/19 16:57 Baso % (Auto) 1.3 % (0-2) 05/16/19 16:57 Absolute Neuts (auto) 5.4 10^3/uL (1.7-8.2) 05/16/19 16:57 Absolute Lymphs (auto) 3.3 10^3/uL (0.5-4.7) 05/16/19 16:57 Absolute Monos (auto) 0.7 10^3/uL (0.1-1.4) 05/16/19 16:57 Absolute Eos (auto) 0.3 10^3/uL (0.0-0.6) 05/16/19 16:57 Absolute Basos (auto) 0.1 10^3/uL (0.0-0.2) 05/16/19 16:57 Seg Neutrophils % 55.0 % (42-78) 05/16/19 16:57 PT 14.5 SEC (11.4-15.4) 05/16/19 16:57 INR 1.12 05/16/19 16:57 APTT 39.5 SEC (23.5-35.8) H 05/16/19 16:57 Sodium 138.8 mmol/L (137-145) 05/19/19 04:15 Potassium 4.6 mmol/L (3.6-5.0) 05/19/19 04:15 Chloride 106 mmol/L (98-107) 05/19/19 04:15 Carbon Dioxide 23 mmol/L (22-30) 05/19/19 04:15 Anion Gap 10 (5-19) 05/19/19 04:15 BUN 26 mg/dL (7-20) H D 05/19/19 04:15 Creatinine 0.70 mg/dL (0.52-1.25) 05/19/19 04:15 Est GFR ( Amer) > 60 (>60) 05/19/19 04:15 Est GFR (Non-Af Amer) Cancelled 05/16/19 16:57 Est GFR (MDRD) Non-Af > 60 (>60) 05/19/19 04:15 Glucose 114 mg/dL (75-110) H 05/19/19 04:15 POC Glucose 266 mg/dL (70-110) H 05/20/19 12:10 Hemoglobin A1c % 9.9 % (4.7-6.0) H 05/17/19 04:31 Calcium 9.2 mg/dL (8.4-10.2) 05/19/19 04:15 Total Bilirubin 0.8 mg/dL (0.2-1.3) 05/16/19 18:40 Direct Bilirubin 0.1 mg/dL (0.0-0.4) 05/16/19 18:40 Neonat Total Bilirubin Not Reportable 05/16/19 18:40 Neonat Direct Bilirubin Not Reportable 05/16/19 18:40 Neonat Indirect Bili Not Reportable 05/16/19 18:40 AST 15 U/L (14-36) 05/16/19 18:40 ALT 15 U/L (<35) 05/16/19 18:40 Alkaline Phosphatase 136 U/L (38-126) H 05/16/19 18:40 Creatine Kinase 24 U/L (30-135) L 05/16/19 18:40 CK-MB (CK-2) 0.55 ng/mL (<4.55) 05/16/19 18:40 Troponin I < 0.012 ng/mL 05/16/19 18:40 Total Protein 6.9 g/dL (6.3-8.2) 05/16/19 18:40 Albumin 3.7 g/dL (3.5-5.0) 05/16/19 18:40 Triglycerides 240 mg/dL (<150) H 05/17/19 04:31 Cholesterol 123.49 mg/dL (0-200) 05/17/19 04:31 LDL Cholesterol Direct 58 mg/dL (<100) 05/17/19 04:31 VLDL Cholesterol 48.0 mg/dL (10-31) H 05/17/19 04:31 HDL Cholesterol 28 mg/dL (>40) L 05/17/19 04:31 EGFR Cancelled 05/16/19 16:57 Urine Color YELLOW 05/16/19 20:11 Urine Appearance TURBID 05/16/19 20:11 Urine pH 5.0 (5.0-9.0) 05/16/19 20:11 Ur Specific Clay 1.016 05/16/19 20:11 Urine Protein 30 mg/dL (NEGATIVE) H 05/16/19 20:11 Urine Glucose (UA) 50 mg/dL (NEGATIVE) H 05/16/19 20:11 Urine Ketones NEGATIVE mg/dL (NEGATIVE) 05/16/19 20:11 Urine Blood MODERATE (NEGATIVE) H 05/16/19 20:11 Urine Nitrite NEGATIVE (NEGATIVE) 05/16/19 20:11 Urine Bilirubin NEGATIVE (NEGATIVE) 05/16/19 20:11 Urine Urobilinogen NEGATIVE mg/dL (<2.0) 05/16/19 20:11 Ur Leukocyte Esterase LARGE (NEGATIVE) H 05/16/19 20:11 Urine WBC (Auto) >182 /HPF 05/16/19 20:11 Urine RBC (Auto) 50 /HPF 05/16/19 20:11 Urine Bacteria (Auto) 1+ /HPF 05/16/19 20:11 Urine WBC Clumps MANY /HPF 05/16/19 20:11 Squamous Epi Cells Auto 2 /HPF 05/16/19 20:11 U Non-Squamous Epis Auto 1 /HPF 05/16/19 20:11 Urine Yeast (Budding) PRESENT /HPF 05/16/19 20:11 Urine Ascorbic Acid NEGATIVE (NEGATIVE) 05/16/19 20:11 05/16/19 05/16/19 16:57 18:40 CK-MB (CK-2) Cancelled 0.55 Troponin I Cancelled < 0.012 Impressions: Chest X-Ray 05/16/19 14:16 IMPRESSION: STABLE APPEARANCE OF THE CHEST. SUPPORT DEVICES UNCHANGED. Head CT 05/16/19 14:16 IMPRESSION: Stable left parietal infarct. No acute intracranial event. EVIDENCE OF ACUTE STROKE: NO. Head MRI 05/17/19 00:00 IMPRESSION: Acute nonhemorrhagic cortical and subcortical white matter infarcts in the left frontal lobe, immediately ventral to the chronic appearing previous infarct. EVIDENCE OF ACUTE STROKE: YES. Carotid Doppler Study 05/19/19 00:00 IMPRESSION: 1. COMPLETE OCCLUSION OF THE LEFT INTERNAL CAROTID ARTERY. 2. 50- 69% STENOSIS OF THE RIGHT INTERNAL CAROTID ARTERY. THIS HAS PROGRESSED SINCE THE PRIOR STUDY. Plan Plan of Treatment: The patient is discharged home in stable condition with home health nursing, Occupational Therapy, and social work services. She is advised to Follow up with primary care provider within 1 week. She is instructed to schedule a follow up appointment with her established service and repair supervisor for the earliest available. The patient loop recorder may have been reset during MRI and likely needs to be reprogramed. We also recommend a consultation appointment with a Vascular surgeon to discuss carotid doppler results; patient is noted to have 100% occluded ICA on the left and partial occlusion on the right. She is instructed to STOP Wellbutrin on Sunday and to schedule a follow up appointment with her mental health provider. Take medications as prescribed. Eat a cardiac/consistent carb (diabetic) diet. Return to the emergency department as needed for concerning symptoms. Time Spent: Greater than 30 Minutes Stroke Is this a Stroke Patient?: Yes Stroke Pt being discharged on Anti-thrombolytic therapy?: Yes Stroke Pt being discharged on Anti-coagulation therapy?: No Reason(s) for not prescribing Anti-coagulation therapy:: Not indicated Stroke Pt being discharged on Statins?: Yes Acute Heart Failure - Is this a Heart Failure Patient?: No
== END 2019-05-20 16:43 | disposition home health service (06) | DRG 66 ==
LOC: ER 14:06 → EH 20:24 → 3S 22:55
PROVIDERS: ADMIT Emergency Medicine; ATTEND Emergency Medicine
DX: I63.59 Cerebral infarction due to unspecified occlusion or stenosis of other cerebral artery (principal); I11.0 Hypertensive heart disease with heart failure; I50.9 Heart failure, unspecified; E87.5 Hyperkalemia; J45.909 Unspecified asthma, uncomplicated; E11.51 Type 2 diabetes mellitus with diabetic peripheral angiopathy without gangrene; M19.90 Unspecified osteoarthritis, unspecified site; F31.9 Bipolar disorder, unspecified; F34.1 Dysthymic disorder; D64.9 Anemia, unspecified; R29.810 Facial weakness; R47.81 Slurred speech; I27.20 Pulmonary hypertension, unspecified; Z87.891 Personal history of nicotine dependence; Z83.3 Family history of diabetes mellitus; Z82.49 Family history of ischemic heart disease and other diseases of the circulatory system; Z79.82 Long term (current) use of aspirin; Z79.51 Long term (current) use of inhaled steroids; Z79.84 Long term (current) use of oral hypoglycemic drugs; Z79.899 Other long term (current) drug therapy; I69.392 Facial weakness following cerebral infarction; Z89.611 Acquired absence of right leg above knee; Z79.4 Long term (current) use of insulin
CPT/HCPCS: 36415; 70450; 70551; 71045; 80048; 80053; 80061; 81001; 82550; 82553; 82962; 83036; 84484; 85025; 85027; 85610; 85730; 93005; 93010; 93306; 93880; 99285; J1265; J1644; J1815; J3490; J7030; J7120

== ENCOUNTER → 2019-08-22 | Outpatient (CLI) | payer MEDICARE, OTHER ==
--- NOTE | 2019-08-22 16:00 | RADIOLOGY REPORT (SQ) ---
EXAM DESCRIPTION: CTA NECK COMPLETED DATE/TIME: 08/22/2019 2:28 pm REASON FOR STUDY: (I65.22)OCCLUSION AND STENOSIS OF LEFT CAROTID ARTERY I65.22 OCCLUSION AND STENOS IS OF LEFT CAROTID ARTERY COMPARISON: Carotid Doppler 05/19/2019 TECHNIQUE: Axial dynamic scanning technique with dynamic contrast enhancement through the extra-crab butcher nial carotid and vertebral arteries. Multiplanar reconstruction. 3-D MIPS and Volume-rendered imag es acquired at the workstation and saved to PACS. Images are reviewed in soft tissue, bone, lung w indows. All CT scanners at this facility use dose modulation, iterative reconstruction, and/or weight based d osing when appropriate to reduce radiation dose to as low as reasonably achievable (ALARA). [facility]: Dose Right [facility]: CareDose [facility]: Dose Right [facility]: Teradose 4D [facility]: [employer] Software CONTRAST TYPE AND DOSE: contrast/concentration: Isovue 350.00 mg/ml; Total Contrast Delivered: 80.0 ml; Total Saline Delivered: 75.0 ml RENAL FUNCTION: Creatinine 0.6 LIMITATIONS: None. FINDINGS: AORTIC ARCH: Normal three-vessel origin. Bilateral subclavian arteries are patent. No d issection. RIGHT CAROTIDS: The vessels are patent. There is atherosclerotic plaque in the carotid bulb and prox imal ICA with approximately 50 to 69% stenosis of the ICA. RIGHT VERTEBRAL: Patent. No dissection. LEFT CAROTIDS: The left internal carotid artery is occluded near its origin. Common carotid and exte rnal carotid arteries are patent. LEFT VERTEBRAL: Patent. No dissection. OTHER: No other significant finding. OTHER: 3-D reconstructions confirm findings. IMPRESSION: There is occlusion of the left internal carotid artery near its origin. There is 50 to 69% stenosis of the right ICA. COMMENT: Quality ID #[id number]: Measurements of distal internal carotid diameter were used as the denomina tor for stenosis measurement. TECHNICAL DOCUMENTATION: JOB ID: [id number] Quality ID # [id number]: Final reports with documentation of one or more dose reduction techniques (e.g., Au tomated exposure control, adjustment of the mA and/or kV according to patient size, use of iterative reconstruction technique) 2010 [employer]- All Rights Reserved Reading location - IP/workstation name: [email or web address]
== END ==
LOC: RAD 13:17
PROVIDERS: ATTEND Surgery Vascular Surgery
DX: I65.23 Occlusion and stenosis of bilateral carotid arteries (principal); Z86.73 Personal history of transient ischemic attack (TIA), and cerebral infarction without residual deficits; E11.9 Type 2 diabetes mellitus without complications; I10 Essential (primary) hypertension; Z79.84 Long term (current) use of oral hypoglycemic drugs
CPT/HCPCS: 70498; 82565